=== PATIENT | male | born 1965 | race Caucasian/White ===

== ENCOUNTER → 2019-03-01 15:01 | Outpatient (BNVA) | payer MEDICARE, MEDICAID, SELFPAY | PROVIDERS: Family Provider Nurse Practitioner Family; PCP Nurse Practitioner Family; Visit Provider Nurse Practitioner Family | DX: E11.9 Type 2 diabetes mellitus without complications (principal); E03.9 Hypothyroidism, unspecified; I10 Essential (primary) hypertension; E78.5 Hyperlipidemia, unspecified; F41.9 Anxiety disorder, unspecified; N52.1 Erectile dysfunction due to diseases classified elsewhere | CPT/HCPCS: 80053; 80061; 83036; 84443; 85025 ==

== ENCOUNTER 2019-05-21 12:33 | Outpatient (CLI) | payer MEDICARE, MEDICAID, SELFPAY ==
--- NOTE | 2019-05-21 12:45 | USCV_ITS ---
Christiano Kearns Age: 54 Gender: M : 1965 Exam Date: 05/21/2019 12:52 Ordering Phys: Freda Summers SERVICE COUNSELOR-Arlet Technologist: Anup Chavez [place]am Location[place] [facility] [place]ication: LT LEG PAIN HISTORY: Lower extremity pain. PROCEDURES: Venous duplex imaging was performed in only the left lower extremity. The following venous structures were evaluated: common femoral vein, profunda vein, proximal portion of the greater saphenous vein, superficial femoral vein, and the popliteal vein. In addition, the posterior tibial and peroneal trunk were evaluated. On the left side, the common femoral, superficial femoral, profunda femoral, popliteal, posterior tibial, greater saphenous veins, and the peroneal trunk were identified and interrogated in the standard fashion. These veins were found to be easily compressible with spontaneous blood flow. No evidence of insufficiency or thrombus noted. FINDINGS: Normal 2-D Doppler and augmentation and compressibility throughout the lower extremity venous structures. Additional imaging through the proximal calf veins also reveals no thrombus. Limited evaluation of the greater saphenous vein is patent with no thrombus.. CONCLUSIONS No evidence of left lower extremity DVT. Jaime Mercedes MD (Electronically Signed) Final Date: 22 May 2019 16:50 S
--- NOTE | 2019-05-21 12:56 | XR_ITS ---
WS: [id number] LUMBAR SPINE TECHNIQUE: 3 views of the lumbar spine CLINICAL INFORMATION: back pain COMPARISON: None. FINDINGS: Five tmg-inp-edmpwky lumbar vertebral bodies. Disc space heights are well preserved. No compression f ractures. No spondylolisthesis. Visualized sacroiliac joints are normal. Normal visualized soft tissu es. Partially visualized bowel gas pattern is normal. Aortic calcification. Advanced facet arthropathy L5-S1. Trace retrolisthesis L5 on S1. Vascular calci fication. XR/XR lumbar spine 2-3V* [id number] IMPRESSION: 1. No acute lumbar spine findings 2. Disc space narrowing L5-S1 with slight retrolisthesis. 3. Advanced facet arthropathy L5-S1.
== END 2019-05-21 12:34 | disposition home or self-care (01) ==
LOC: RAD 12:34
PROVIDERS: Family Provider Nurse Practitioner Family; PCP Nurse Practitioner Family; Visit Provider Nurse Practitioner Family
DX: M79.605 Pain in left leg; M79.662 Pain in left lower leg; M54.9 Dorsalgia, unspecified; M48.07 Spinal stenosis, lumbosacral region; M47.817 Spondylosis without myelopathy or radiculopathy, lumbosacral region
CPT/HCPCS: 72100; 80053; 81000; 85025; 85379; 93971

== ENCOUNTER → 2019-06-14 16:36 | Outpatient (BNVA) | payer MEDICARE, MEDICAID, SELFPAY | PROVIDERS: Family Provider Nurse Practitioner Family; PCP Nurse Practitioner Family; Visit Provider Nurse Practitioner | DX: M79.672 Pain in left foot (principal); L02.619 Cutaneous abscess of unspecified foot; L03.119 Cellulitis of unspecified part of limb | CPT/HCPCS: 73630; 80053; 85025 ==

== ENCOUNTER 2019-06-15 11:29 | Outpatient (CLI) | payer MEDICARE, MEDICAID, SELFPAY ==
--- NOTE | 2019-06-15 11:45 | USCV_ITS ---
Christiano Kearns Age: 54 Gender: M : 1965 Exam Date: 06/15/2019 11:51 Ordering Phys: Ruel Reyes Technologist: Arpita Osborn Exam Location: [facility] – [place]_ Indication: LEFT 4TH TOE BLUE Risk Factors: Previous Vascular Surgery: RIGHT LEFT BP: / BP: 158.0/ 68.00 0 Waveform Velocity (cm/s) Velocity (cm/s) Waveform Iliac Prox 68.4 Monophasic Iliac Mid 64.8 Monophasic Iliac Distal 46.7 Monophasic BUSHLER 46.7 Monophasic SFA Prox 34.2 Monophasic SFA Mid 16.2 Monophasic SFA Dist 21.9 Monophasic POP 255.0 Monophasic DPA 14.4 Monophasic FINDINGS LT EXPORT DOCUMENTS CLERK: 0 LT DPA: NC LT DENIA: unable to calculate Moderate diffuse central venous plaques in the iliac and femoral artery on the left side. Monophasic, low velocity continuous waveforms in the mid and distal SFA , popliteal and dorsalis pedis artery CONCLUSIONS 1. Supernormal resting DENIA on the left side. 2. Abnormal Doppler waveforms, suggestive of collateral circulation in the mid to distal SFA, popliteal and dorsalis pedis artery. 3. 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 Exact comparison is difficult since there was no Doppler imaging at that time Dr Jessica Torrez MD [facility] (Electronically Signed) Final Date: 18 Jun 2019 08:35 S
== END 2019-06-15 11:30 | disposition home or self-care (01) ==
LOC: RAD 11:34
PROVIDERS: Family Provider Nurse Practitioner Family; PCP Nurse Practitioner Family; Visit Provider Nurse Practitioner
DX: M79.675 Pain in left toe(s) (principal)
CPT/HCPCS: 93926

== ENCOUNTER → 2019-06-19 12:01 | Outpatient (BNVA) | payer MEDICARE, MEDICAID, SELFPAY | PROVIDERS: Family Provider Nurse Practitioner Family; PCP Nurse Practitioner Family; Visit Provider Nurse Practitioner | DX: E11.9 Type 2 diabetes mellitus without complications (principal); I10 Essential (primary) hypertension | CPT/HCPCS: 80053; 85025 ==

== ENCOUNTER 2019-06-25 08:00 | Day surgery (SDC) | payer MEDICARE, MEDICAID, SELFPAY | END 2019-06-25 09:00 | disposition home or self-care (01) | LOC: CCL 10-04 12:02 | PROVIDERS: PCP Nurse Practitioner Family; Visit Provider Internal Medicine Cardiovascular Disease | DX: I73.9 Peripheral vascular disease, unspecified (principal) | CPT/HCPCS: J3490 ==

== ENCOUNTER 2019-06-25 12:35 | Inpatient (IN) | payer MEDICARE, OTHER, MEDICAID, SELFPAY ==
[2019-06-25 12:42] VITALS: BP 219/122; PULSE 112; RESP 17; TEMP 36.9; O2SAT 100; BMI 29.5
--- NOTE | 2019-06-25 13:24 | ED_ITS ---
Documented by User: ELIZABETH Freire 06/25/19 16:58 HPI - General Adult General: Chief complaint: General Medical Stated complaint: COVID 19 SWAB Time Seen by Provider: 06/25/19 12:42 Source: patient Mode of arrival: ambulatory Limitations: no limitations History of Present Illness: HPI narrative: Patient is a 54-year-old male with a known history of PVD here per their request of Dr. Ambriz to get tested for COVID prior to being a direct admit. 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 Patient does not have any signs or symptoms of COVID. He is not complaining of fever, cough, shortness of breath. He has had no recent travel or sick exposures. The last note I can find on patient was from 06/[address] Leonardo. It states that patient had an ultrasound at the beginning of the month showing monophasic flow throughout his left lower extremity. Dr. Gr had agreed to take the patient to the OR and apparently saw patient today however I cannot find a note regarding this visit. Patient tells me he has been having pain in his left foot for over 3 weeks now. Onset (ago): week(s) Associated symptoms: Deny chest pain, dyspnea, headache(s), malaise, nausea, palpitations, syncope or vomiting Review of Systems General: Reports: 10 or more systems reviewed and unremarkable except in HPI and below Const: Denies: fever, chills, body aches, fatigue or malaise Eyes: Denies: change in vision, blurry vision or seeing flashes Card: Denies: chest pain, palpitations, irregular heart rhythm, edema, lightheadedness, syncope, pre-syncope or shortness of breath when lying down Resp: Denies: shortness of breath GI: Denies: abdominal pain, nausea or vomiting Musc: Reports: extremity pain (L foot); Denies: neck pain or back pain Skin/Breast: Reports: other ( black toe ) Neuro: Denies: headache, weakness in extremities, difficulty walking, frequent falls or dizziness PFS ED PFSH: Medical History (Updated 06/25/19 @ 19:41 by Greta Gr MD) Acquired hypothyroidism Acquired spondylolisthesis Anxiety and depression Chronic hypertension Critical lower limb ischemia Diet-controlled type 2 diabetes mellitus Dyslipidemia End stage renal failure on dialysis Environmental and seasonal allergies Erectile dysfunction due to diseases classified elsewhere HPTH (hyperparathyroidism) Malignant hypertension PAD (peripheral artery disease) Polyneuropathy Vitamin D deficiency Surgical History History of heart artery stent History of repair of right rotator cuff History of toe surgery Left great toe debridement Family History Brother Cancer Mother Cancer Father Heart disease Social History Smoking and tobacco status: never smoked Second hand smoke exposure: No Smoking risk assessment/counseling performed?: No Alcohol intake: unknown Lives independently: Yes Housing: House Marital status: Legally Highest education level completed: Some College, No Degree service: No Current occupational status: disabled Pets and animals: Yes Current gender identity: Male Physical Exam Const: COMMON NORMALS: no apparent distress, average body habitus, oriented x3, no limitations, healthy appearing, alert and well nourished HENMT: COMMON NORMALS: normocephalic and head/scalp atraumatic HEAD & SCALP: normocephalic and atraumatic Resp: COMMON NORMALS: normal respiratory effort and clear to auscultation bilaterally AUSCULTATION: clear to auscultation bilaterally Cardio: COMMON NORMALS: regular rate and regular rhythm RATE: regular rate RHYTHM: regular rhythm GI: COMMON NORMALS: normal to inspection, nondistended, normoactive bowel sounds, soft to palpation, non-tender, no hepatosplenomegaly and no masses PALPATION: Yes soft and Yes no hepatosplenomegaly Extremity: OTHER: necrotic L 4th toe; no foul odor noted; he has non-palpable pulses to L foot; foot does not feel cool to the touch Neuro: COMMON NORMALS: oriented x3 SENSORIUM/ORIENTATION: Yes alert Course Consultations: Consultation #1: Telenephrology-will consult on patient and take care of his dialysis while in hospital Vital Signs: Vital signs: Vital Signs Temperature 98.1 F 06/26/19 02:30 Pulse Rate 127 H 06/26/19 13:00 Respiratory Rate 17 06/26/19 13:00 Blood Pressure 157/99 06/26/19 13:00 Pulse Oximetry 99 06/26/19 13:00 MDM - General Adult MDM Narrative: Medical decision making narrative: Dr. Aburto spoke to Dr. Gr and explained the lack of need for COVID testing. Will go ahead and admit with plan for OR in the morning. I have consulted with telenephrology so they are aware of patient and can be involved in his peritoneal dialysis while in the hospital. Spoke to Dr. Aburto and we will start patient on 5,000 units SQ heparin. Lab Data: Labs: Lab Results 06/25/19 06/25/19 06/25/19 Range/Units 14:22 14:22 14:22 WBC 12.3 H (4.0-10.0) 10^3/ uL RBC 3.71 L (4.1-5.3) 10^6/u L Hgb 11.1 L (11.7-16.6) g/dL Hct 33.7 L (42.0-52.0) % MCV 90.8 (80-94) fL MCH 29.9 (28.0-34.0) pg MCHC 32.9 (30.0-36.0) g/dL RDW 14.5 (12.1-15.1) % Plt Count 314 (130-400) 10^3/c mm MPV 8.7 (7.4-10.4) fL Neut % (Auto) 74.4 % Lymph % (Auto) 13.1 % [place] % (Auto) 8.5 % Eos % (Auto) 2.1 % Baso % (Auto) 1.3 % Neut # (Auto) 9.1 H (1.8-7.7) 10^3/u L Lymph # (Auto) 1.6 (0.8-4.8) 10^3/u L [place] # (Auto) 1.0 H (0.2-0.9) 10^3/u L Eos # (Auto) 0.3 (0.0-0.8) 10^3/u L Baso # (Auto) 0.2 H (0.0-0.1) 10^3/u L Nucleated RBC % (a uto) 0 % Nucleated RBCs # 0.0 /100WBC PT 14.20 H (10.5-13.3) SECO NDS INR 1.06 (0.8-1.2) APTT 36.8 H (23.9-36.7) SECO NDS Sodium 134 L (136-145) mmol/L Potassium 3.3 L (3.5-5.1) mmol/L Chloride 90 L (98-107) mmol/L Carbon Dioxide 25 (22-29) mmol/L Anion Gap 22.3 H (5-19) BUN 33 H (6-20) mg/dL Creatinine 9.3 H* (0.7-1.2) mg/dL GFR Calculation 6.0 L (90-130) mL/min Glucose 156 H (65-115) mg/dL POC Glucose (70-110) mg/dL Calculated Osmolal ity 278 L (285-295) mOsm/k g Calcium 8.5 (8.5-10.5) mg/dL Phosphorus (2.5-4.5) mg/dL Magnesium (1.7-2.3) mg/dL Total Bilirubin 0.2 (0.15-1.2) mg/dL AST 11 (0-40) U/L ALT 8 (0-41) U/L Alkaline Phosphata se 114 (40-130) IU/L Total Protein 6.7 (6.6-8.7) g/dL Albumin 3.2 L (3.5-5.2) g/dL Globulin 3.5 (1.3-4.6) g/dL Urine Color (Yellow) Urine Appearance (CLEAR) Urine pH (5-7) Ur Specific Gravit y (1.005-1.030) Urine Protein (Negative) Urine Glucose (UA) (Normal) Urine Ketones (Negative) Urine Blood (Negative) Urine Nitrate (Negative) Urine Bilirubin (NEGATIVE) Urine Urobilinogen (Negative) mg/dL Ur Leukocyte [place] (Negative) Urine RBC (0-2) /hpf Urine WBC (0-5) /hpf Ur Squamous Epith Cells (0-5) Urine Bacteria (NONE) 06/25/19 06/25/19 06/25/19 Range/Units 14:22 16:15 18:11 WBC (4.0-10.0) 10^3/ uL RBC (4.1-5.3) 10^6/u L Hgb (11.7-16.6) g/dL Hct (42.0-52.0) % MCV (80-94) fL MCH (28.0-34.0) pg MCHC (30.0-36.0) g/dL RDW (12.1-15.1) % Plt Count (130-400) 10^3/c mm MPV (7.4-10.4) fL Neut % (Auto) % Lymph % (Auto) % [place] % (Auto) % Eos % (Auto) % Baso % (Auto) % Neut # (Auto) (1.8-7.7) 10^3/u L Lymph # (Auto) (0.8-4.8) 10^3/u L [place] # (Auto) (0.2-0.9) 10^3/u L Eos # (Auto) (0.0-0.8) 10^3/u L Baso # (Auto) (0.0-0.1) 10^3/u L Nucleated RBC % (a uto) % Nucleated RBCs # /100WBC PT (10.5-13.3) SECO NDS INR (0.8-1.2) APTT (23.9-36.7) SECO NDS Sodium (136-145) mmol/L Potassium (3.5-5.1) mmol/L Chloride (98-107) mmol/L Carbon Dioxide (22-29) mmol/L Anion Gap (5-19) BUN (6-20) mg/dL Creatinine (0.7-1.2) mg/dL GFR Calculation (90-130) mL/min Glucose (65-115) mg/dL POC Glucose 289 (70-110) mg/dL Calculated Osmolal ity (285-295) mOsm/k g Calcium (8.5-10.5) mg/dL Phosphorus 4.8 H (2.5-4.5) mg/dL Magnesium 1.7 (1.7-2.3) mg/dL Total Bilirubin (0.15-1.2) mg/dL AST (0-40) U/L ALT (0-41) U/L Alkaline Phosphata se (40-130) IU/L Total Protein (6.6-8.7) g/dL Albumin (3.5-5.2) g/dL Globulin (1.3-4.6) g/dL Urine Color Straw (Yellow) Urine Appearance Clear (CLEAR) Urine pH 6.5 (5-7) Ur Specific Gravit y 1.005 (1.005-1.030) Urine Protein 1+ H (Negative) Urine Glucose (UA) 1+ (Normal) Urine Ketones Negative (Negative) Urine Blood 2+ H (Negative) Urine Nitrate Negative (Negative) Urine Bilirubin Neg (NEGATIVE) Urine Urobilinogen Norm (Negative) mg/dL Ur Leukocyte [place] Negative (Negative) Urine RBC 5-10 H (0-2) /hpf Urine WBC 0-4 H (0-5) /hpf Ur Squamous Epith Cells 0-4 H (0-5) Urine Bacteria Trace (NONE) 06/26/19 06/26/19 Range/Units 05:11 05:11 WBC 9.5 (4.0-10.0) 10^3/ uL RBC 3.32 L (4.1-5.3) 10^6/u L Hgb 10.2 L (11.7-16.6) g/dL Hct 30.2 L (42.0-52.0) % MCV 91.0 (80-94) fL MCH 30.7 (28.0-34.0) pg MCHC 33.8 (30.0-36.0) g/dL RDW 14.4 (12.1-15.1) % Plt Count 324 (130-400) 10^3/c mm MPV 9.1 (7.4-10.4) fL Neut % (Auto) 69.0 % Lymph % (Auto) 15.3 % [place] % (Auto) 10.0 % Eos % (Auto) 3.9 % Baso % (Auto) 1.3 % Neut # (Auto) 6.6 (1.8-7.7) 10^3/u L Lymph # (Auto) 1.5 (0.8-4.8) 10^3/u L [place] # (Auto) 1.0 H (0.2-0.9) 10^3/u L Eos # (Auto) 0.4 (0.0-0.8) 10^3/u L Baso # (Auto) 0.1 (0.0-0.1) 10^3/u L Nucleated RBC % (a uto) 0 % Nucleated RBCs # 0.0 /100WBC PT (10.5-13.3) SECO NDS INR (0.8-1.2) APTT (23.9-36.7) SECO NDS Sodium 136 (136-145) mmol/L Potassium 2.7 L* (3.5-5.1) mmol/L Chloride 95 L (98-107) mmol/L Carbon Dioxide 23 (22-29) mmol/L Anion Gap 20.7 H (5-19) BUN 37 H (6-20) mg/dL Creatinine 9.3 H* (0.7-1.2) mg/dL GFR Calculation 6.0 L (90-130) mL/min Glucose 122 H (65-115) mg/dL POC Glucose (70-110) mg/dL Calculated Osmolal ity 281 L (285-295) mOsm/k g Calcium 7.9 L (8.5-10.5) mg/dL Phosphorus (2.5-4.5) mg/dL Magnesium (1.7-2.3) mg/dL Total Bilirubin (0.15-1.2) mg/dL AST (0-40) U/L ALT (0-41) U/L Alkaline Phosphata se (40-130) IU/L Total Protein (6.6-8.7) g/dL Albumin (3.5-5.2) g/dL Globulin (1.3-4.6) g/dL Urine Color (Yellow) Urine Appearance (CLEAR) Urine pH (5-7) Ur Specific Gravit y (1.005-1.030) Urine Protein (Negative) Urine Glucose (UA) (Normal) Urine Ketones (Negative) Urine Blood (Negative) Urine Nitrate (Negative) Urine Bilirubin (NEGATIVE) Urine Urobilinogen (Negative) mg/dL Ur Leukocyte [place] (Negative) Urine RBC (0-2) /hpf Urine WBC (0-5) /hpf Ur Squamous Epith Cells (0-5) Urine Bacteria (NONE) Imaging Data^: CXR: Radiologist's impression: [address] [address] XRay Report Signed Patient: Christiano Kearns Unit #: [id number] : 1965 Age/Sex: 54 / M ADM Date: 06/25/19 Loc: ER Room/Bed: Attending Dr: Ordering Provider/Ordering MD: Hilda Chinchilla Date of Service: 06/25/19 Procedure(s): XR chest 1V portable [id number] Accession Number(s): [id number] Report Number: [id number] WS: [id number] PORTABLE CHEST HISTORY: cough/congestion COMPARISON: 07/05/2018 Lungs are clear and well expanded. No pleural effusion or pneumothorax. Cardiac size: Normal. Mediastinum/Aorta: Normal mediastinum. No osseous abnormality seen. XR/XR chest 1V portable [id number] IMPRESSION: Unremarkable portable chest. Dictated By: Danyelle Paredes DO Signed By: Danyelle Paredes DO Signed Date/Time: 06/25/19 1410 DD/ 1409 Discharge Plan Discharge Patient Disposition: Admitted As Inpatient Admit Provider: Greta Gr Clinical Impression: Peripheral vascular disease, End stage chronic kidney disease Condition: Stable Referrals: Freda Summers FNP-C [Primary Care Provider] - Discharge Date/Time: 06/26/19 02:49 Coding Level of Care Code ED Mannequin Mounter for Chg Fwd Exam Detailed Documented by User: Rafael Aburto DO 06/26/19 13:33 HPI - General Adult General: Chief complaint: General Medical Stated complaint: COVID 19 SWAB Time Seen by Provider: 06/25/19 12:42 PFSH ED PFSH: Medical History (Updated 06/25/19 @ 19:41 by Greta Gr MD) Acquired hypothyroidism Acquired spondylolisthesis Anxiety and depression Chronic hypertension Critical lower limb ischemia Diet-controlled type 2 diabetes mellitus Dyslipidemia End stage renal failure on dialysis Environmental and seasonal allergies Erectile dysfunction due to diseases classified elsewhere HPTH (hyperparathyroidism) Malignant hypertension PAD (peripheral artery disease) Polyneuropathy Vitamin D deficiency Surgical History History of heart artery stent History of repair of right rotator cuff History of toe surgery Left great toe debridement Family History Brother Cancer Mother Cancer Father Heart disease Social History Smoking and tobacco status: never smoked Second hand smoke exposure: No Smoking risk assessment/counseling performed?: No Alcohol intake: unknown Lives independently: Yes Housing: House Marital status: Legally Highest education level completed: Some College, No Degree service: No Current occupational status: disabled Pets and animals: Yes Current gender identity: Male Course Vital Signs: Vital signs: Vital Signs Temperature 98.1 F 06/26/19 02:30 Pulse Rate 127 H 06/26/19 13:00 Respiratory Rate 17 06/26/19 13:00 Blood Pressure 157/99 06/26/19 13:00 Pulse Oximetry 99 06/26/19 13:00 MDM - General Adult MDM Narrative: Medical decision making narrative: Discussed with Dr. Ramirez. Patient will be heparinized. He has no clinical indication at this point for COVID testing. Patient admitted to Dr. Ramirez services. Lab Data: Labs: Lab Results 06/25/19 06/25/19 06/25/19 Range/Units 14:22 14:22 14:22 WBC 12.3 H (4.0-10.0) 10^3/ uL RBC 3.71 L (4.1-5.3) 10^6/u L Hgb 11.1 L (11.7-16.6) g/dL Hct 33.7 L (42.0-52.0) % MCV 90.8 (80-94) fL MCH 29.9 (28.0-34.0) pg MCHC 32.9 (30.0-36.0) g/dL RDW 14.5 (12.1-15.1) % Plt Count 314 (130-400) 10^3/c mm MPV 8.7 (7.4-10.4) fL Neut % (Auto) 74.4 % Lymph % (Auto) 13.1 % [place] % (Auto) 8.5 % Eos % (Auto) 2.1 % Baso % (Auto) 1.3 % Neut # (Auto) 9.1 H (1.8-7.7) 10^3/u L Lymph # (Auto) 1.6 (0.8-4.8) 10^3/u L [place] # (Auto) 1.0 H (0.2-0.9) 10^3/u L Eos # (Auto) 0.3 (0.0-0.8) 10^3/u L Baso # (Auto) 0.2 H (0.0-0.1) 10^3/u L Nucleated RBC % (a uto) 0 % Nucleated RBCs # 0.0 /100WBC PT 14.20 H (10.5-13.3) SECO NDS INR 1.06 (0.8-1.2) APTT 36.8 H (23.9-36.7) SECO NDS Sodium 134 L (136-145) mmol/L Potassium 3.3 L (3.5-5.1) mmol/L Chloride 90 L (98-107) mmol/L Carbon Dioxide 25 (22-29) mmol/L Anion Gap 22.3 H (5-19) BUN 33 H (6-20) mg/dL Creatinine 9.3 H* (0.7-1.2) mg/dL GFR Calculation 6.0 L (90-130) mL/min Glucose 156 H (65-115) mg/dL POC Glucose (70-110) mg/dL Calculated Osmolal ity 278 L (285-295) mOsm/k g Calcium 8.5 (8.5-10.5) mg/dL Phosphorus (2.5-4.5) mg/dL Magnesium (1.7-2.3) mg/dL Total Bilirubin 0.2 (0.15-1.2) mg/dL AST 11 (0-40) U/L ALT 8 (0-41) U/L Alkaline Phosphata se 114 (40-130) IU/L Total Protein 6.7 (6.6-8.7) g/dL Albumin 3.2 L (3.5-5.2) g/dL Globulin 3.5 (1.3-4.6) g/dL Urine Color (Yellow) Urine Appearance (CLEAR) Urine pH (5-7) Ur Specific Gravit y (1.005-1.030) Urine Protein (Negative) Urine Glucose (UA) (Normal) Urine Ketones (Negative) Urine Blood (Negative) Urine Nitrate (Negative) Urine Bilirubin (NEGATIVE) Urine Urobilinogen (Negative) mg/dL Ur Leukocyte [place] (Negative) Urine RBC (0-2) /hpf Urine WBC (0-5) /hpf Ur Squamous Epith Cells (0-5) Urine Bacteria (NONE) 06/25/19 06/25/19 06/25/19 Range/Units 14:22 16:15 18:11 WBC (4.0-10.0) 10^3/ uL RBC (4.1-5.3) 10^6/u L Hgb (11.7-16.6) g/dL Hct (42.0-52.0) % MCV (80-94) fL MCH (28.0-34.0) pg MCHC (30.0-36.0) g/dL RDW (12.1-15.1) % Plt Count (130-400) 10^3/c mm MPV (7.4-10.4) fL Neut % (Auto) % Lymph % (Auto) % [place] % (Auto) % Eos % (Auto) % Baso % (Auto) % Neut # (Auto) (1.8-7.7) 10^3/u L Lymph # (Auto) (0.8-4.8) 10^3/u L [place] # (Auto) (0.2-0.9) 10^3/u L Eos # (Auto) (0.0-0.8) 10^3/u L Baso # (Auto) (0.0-0.1) 10^3/u L Nucleated RBC % (a uto) % Nucleated RBCs # /100WBC PT (10.5-13.3) SECO NDS INR (0.8-1.2) APTT (23.9-36.7) SECO NDS Sodium (136-145) mmol/L Potassium (3.5-5.1) mmol/L Chloride (98-107) mmol/L Carbon Dioxide (22-29) mmol/L Anion Gap (5-19) BUN (6-20) mg/dL Creatinine (0.7-1.2) mg/dL GFR Calculation (90-130) mL/min Glucose (65-115) mg/dL POC Glucose 289 (70-110) mg/dL Calculated Osmolal ity (285-295) mOsm/k g Calcium (8.5-10.5) mg/dL Phosphorus 4.8 H (2.5-4.5) mg/dL Magnesium 1.7 (1.7-2.3) mg/dL Total Bilirubin (0.15-1.2) mg/dL AST (0-40) U/L ALT (0-41) U/L Alkaline Phosphata se (40-130) IU/L Total Protein (6.6-8.7) g/dL Albumin (3.5-5.2) g/dL Globulin (1.3-4.6) g/dL Urine Color Straw (Yellow) Urine Appearance Clear (CLEAR) Urine pH 6.5 (5-7) Ur Specific Gravit y 1.005 (1.005-1.030) Urine Protein 1+ H (Negative) Urine Glucose (UA) 1+ (Normal) Urine Ketones Negative (Negative) Urine Blood 2+ H (Negative) Urine Nitrate Negative (Negative) Urine Bilirubin Neg (NEGATIVE) Urine Urobilinogen Norm (Negative) mg/dL Ur Leukocyte [place] Negative (Negative) Urine RBC 5-10 H (0-2) /hpf Urine WBC 0-4 H (0-5) /hpf Ur Squamous Epith Cells 0-4 H (0-5) Urine Bacteria Trace (NONE) 06/26/19 06/26/19 Range/Units 05:11 05:11 WBC 9.5 (4.0-10.0) 10^3/ uL RBC 3.32 L (4.1-5.3) 10^6/u L Hgb 10.2 L (11.7-16.6) g/dL Hct 30.2 L (42.0-52.0) % MCV 91.0 (80-94) fL MCH 30.7 (28.0-34.0) pg MCHC 33.8 (30.0-36.0) g/dL RDW 14.4 (12.1-15.1) % Plt Count 324 (130-400) 10^3/c mm MPV 9.1 (7.4-10.4) fL Neut % (Auto) 69.0 % Lymph % (Auto) 15.3 % [place] % (Auto) 10.0 % Eos % (Auto) 3.9 % Baso % (Auto) 1.3 % Neut # (Auto) 6.6 (1.8-7.7) 10^3/u L Lymph # (Auto) 1.5 (0.8-4.8) 10^3/u L [place] # (Auto) 1.0 H (0.2-0.9) 10^3/u L Eos # (Auto) 0.4 (0.0-0.8) 10^3/u L Baso # (Auto) 0.1 (0.0-0.1) 10^3/u L Nucleated RBC % (a uto) 0 % Nucleated RBCs # 0.0 /100WBC PT (10.5-13.3) SECO NDS INR (0.8-1.2) APTT (23.9-36.7) SECO NDS Sodium 136 (136-145) mmol/L Potassium 2.7 L* (3.5-5.1) mmol/L Chloride 95 L (98-107) mmol/L Carbon Dioxide 23 (22-29) mmol/L Anion Gap 20.7 H (5-19) BUN 37 H (6-20) mg/dL Creatinine 9.3 H* (0.7-1.2) mg/dL GFR Calculation 6.0 L (90-130) mL/min Glucose 122 H (65-115) mg/dL POC Glucose (70-110) mg/dL Calculated Osmolal ity 281 L (285-295) mOsm/k g Calcium 7.9 L (8.5-10.5) mg/dL Phosphorus (2.5-4.5) mg/dL Magnesium (1.7-2.3) mg/dL Total Bilirubin (0.15-1.2) mg/dL AST (0-40) U/L ALT (0-41) U/L Alkaline Phosphata se (40-130) IU/L Total Protein (6.6-8.7) g/dL Albumin (3.5-5.2) g/dL Globulin (1.3-4.6) g/dL Urine Color (Yellow) Urine Appearance (CLEAR) Urine pH (5-7) Ur Specific Gravit y (1.005-1.030) Urine Protein (Negative) Urine Glucose (UA) (Normal) Urine Ketones (Negative) Urine Blood (Negative) Urine Nitrate (Negative) Urine Bilirubin (NEGATIVE) Urine Urobilinogen (Negative) mg/dL Ur Leukocyte [place] (Negative) Urine RBC (0-2) /hpf Urine WBC (0-5) /hpf Ur Squamous Epith Cells (0-5) Urine Bacteria (NONE) Discharge Plan Discharge Patient Disposition: Admitted As Inpatient Admit Provider: Greta Gr Clinical Impression: Peripheral vascular disease, End stage chronic kidney disease Condition: Stable Referrals: Freda Summers FNP-C [Primary Care Provider] - Discharge Date/Time: 06/26/19 02:49 Coding Level of Care Code ED Mannequin Mounter for Chg Fwd Exam Detailed
--- NOTE | 2019-06-25 13:54 | XR_ITS ---
WS: [id number] PORTABLE CHEST HISTORY: cough/congestion COMPARISON: 07/05/2018 Lungs are clear and well expanded. No pleural effusion or pneumothorax. Cardiac size: Normal. Mediastinum/Aorta: Normal mediastinum. No osseous abnormality seen. XR/XR chest 1V portable [id number] IMPRESSION: Unremarkable portable chest.
[2019-06-25 14:31] LABS: Basophils # 0.2 10^3/uL (0.0-0.1); Basophils % 1.3 %; Eosinophils # 0.3 10^3/uL (0.0-0.8); Eosinophils % 2.1 %; Hematocrit 33.7 % (42.0-52.0); Hemoglobin 11.1 g/dL (11.7-16.6); Lymphocytes # 1.6 10^3/uL (0.8-4.8); Lymphocytes % 13.1 %; Mean Corpuscular HGB Conc 32.9 g/dL (30.0-36.0); Mean Corpuscular Hemoglobin 29.9 pg (28.0-34.0); Mean Corpuscular Volume 90.8 fL (80-94); Mean Platelet Volume 8.7 fL (7.4-10.4); Monocytes % 8.5 %; Neutrophils # 9.1 10^3/uL (1.8-7.7); Neutrophils % 74.4 %; Nucleated Red Blood Cells % 0 %; Platelet Count 314 10^3/cmm (130-400); Red Blood Count 3.71 10^6/uL (4.1-5.3); Red Cell Distribution Width 14.5 % (12.1-15.1); White Blood Count 12.3 10^3/uL (4.0-10.0)
[2019-06-25 14:43] LABS: INR 1.06 (0.8-1.2)
[2019-06-25 14:44] LABS: Partial Thromboplastin Time 36.8 SECONDS (23.9-36.7)
[2019-06-25 14:50] LABS: Alanine Aminotransferase 8 U/L (0-41); Albumin Level 3.2 g/dL (3.5-5.2); Alkaline Phosphatase 114 IU/L (40-130); Anion Gap 22.3 (5-19); Aspartate Amino Transferase 11 U/L (0-40); Blood Urea Nitrogen 33 mg/dL (6-20); Calcium 8.5 mg/dL (8.5-10.5); Carbon Dioxide 25 mmol/L (22-29); Chloride 90 mmol/L (98-107); Globulin 3.5 g/dL (1.3-4.6); Glucose 156 mg/dL (65-115); Osmolality Calculated 278 mOsm/kg (285-295); Potassium 3.3 mmol/L (3.5-5.1); Sodium 134 mmol/L (136-145); Total Bilirubin 0.2 mg/dL (0.15-1.2); Total Protein 6.7 g/dL (6.6-8.7)
--- NOTE | 2019-06-25 15:44 | ECG_ITS ---
Measurements Intervals [place] Rate: 96 P: 34 [place]: 210 QRS: -9 QRSD: 98 T: 45 QT: 377 QTc: 477 SINUS RHYTHM WITH FIRST DEGREE AV BLOCK WITH OCCASIONAL SUPRAVENTRICULAR PRE PREMATURE COMPLEXES SEPTAL MYOCARDIAL INFARCTION , OF INDETERMINATE AGE [40+ ms Q WAVE IN V1/V2] Compared to ECG 10/18/2017 21:39:56 First degree AV block now present Myocardial infarct finding now present Electronically Signed On 06-26-2019 19:47:05 CDT by Greta Gr M.D. [email or web address]
[2019-06-25 16:07] LABS: Magnesium 1.7 mg/dL (1.7-2.3); Phosphorus 4.8 mg/dL (2.5-4.5)
[2019-06-25] MEDS: heparin 5,000 unit/mL INJ 1 mL 5000 UNIT SUBCUT (16:14)
[2019-06-25 18:00] VITALS: BP 232/127; PULSE 100; RESP 18; O2SAT 96
[2019-06-25 18:07] LABS: Urine Color Straw (Yellow)
[2019-06-25 18:08] LABS: Urine Appearance Clear (CLEAR); pH Urine 6.5 (5-7)
[2019-06-25 18:09] LABS: Bilirubin Urine Neg (NEGATIVE); Blood Urine 2+ (Negative); Glucose Urine UA 1+ (Normal); Ketones Urine Negative (Negative); Nitrate Urine Negative (Negative); Protein Urine 1+ (Negative); Specific Gravity, Urine 1.005 (1.005-1.030)
[2019-06-25 18:10] LABS: Add Urine Culture? No; Add Urine Microscopic? YES; Bacteria Urine TRACE; Leukocyte Esterase Urine Negative (Negative); Squamous Epithelial Cell Urine 0-4 (0-5); Urobilinogen Urine Norm (Negative); WBC Urine 0-4 /hpf (0-5)
--- NOTE | 2019-06-25 18:13 | PC.NURSE ---
Call placed to Dr Gr regarding BP of 232/127. Orders given for 1 inch of Nitro paste and 10mg Amlodipine PO per [facility]TO.
[2019-06-25 18:15] LABS: Glucose Point of Care 289 mg/dL (70-110)
--- NOTE | 2019-06-25 18:25 | P.PN_ITS ---
Subjective Subjective: Interval history: Mr Kearns is electively admitted for arterial stent to his left leg and amputation of his left fourth toe due to necrosis, due to go to the OR tomorrow per Dr Gr. 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 No new uremic Sx No issues with his PD, it is going well, painless with good outflow Bp high since admission Vitals/I&O/Wt Last Vital Signs Temp 98.4 F 06/25/19 12:42 Pulse 112 H 06/25/19 12:42 Resp 17 06/25/19 12:42 BP 219/122 06/25/19 12:42 Pulse Ox 100 06/25/19 12:42 Weight last 48 hrs Weight 90.718 kg Physical Exam Narrative: EXAM NARRATIVE: The exam was performed with the aid of the bedside RN via telemed HENMT: COMMON NORMALS: normocephalic and head/scalp atraumatic HEAD & SCALP: normocephalic and atraumatic Neck/C-Spine: COMMON NORMALS: no JVD Chest: COMMONS NORMALS: inspection of chest normal Resp: COMMON NORMALS: normal respiratory effort and no retractions Cardio: COMMON NORMALS: no JVD and regular rate RATE: regular rate GI: COMMON NORMALS: normal to inspection, nondistended, normoactive bowel sounds : COMMON NORMALS: Yes external exam normal Data : 06/25/19 14:22 06/25/19 14:22 A&P Additional A&P Information 1. ESRD on PD - Will allow him to perform his own PD this evening. - 5 exchanges of 2.5L of yellow (1.5%) solution (4 at night and one day dwell) night dwell over 8hrs - dose meds for eGFR < 15 on PD 2. Arterial stent to his left leg and amputation of his left fourth toe planned for tomorrow (planned for first thing in the am) - pending COVID rule out 3. Hypertension - Bp high and tachy; to receive amlodipine and nitro paste - Can add Metoprolol if Bp remains high. 4. Anemia at goal for ESRD 5. Bone metabolism of ESRD - cont OP meds, no need to follow these levels in house Attestations Medical Necessity Statement*: Eval and mgmt of ESRD on PD Coding Level of Care Code Acute Tree Feller for Chg Fwd Exam Detailed
[2019-06-25] MEDS: nitroglycerin 1 gm/inch oint Pkt 1 INCH TOPICAL (19:03)
--- NOTE | 2019-06-25 19:23 | PM.HP ---
Providers/Chief Complaint Admitting Physician: Greta Gr MD Primary Care Provider: ENRIQUE Ramirez Chief Complaint: COVID 19 SWAB History of Present Illness Christiano Kearns is a 54 year old male past medical history significant for uncontrolled diabetes mellitus, chronic kidney disease on peritoneal dialysis, history of hypertension erectile dysfunction dyslipidemia who was referred by Dr. Leonardo for gangrenous left fourth toe , patient was to undergo peripheral angiogram this Tuesday however due to worsening of pain in the foot we brought him today for direct admission however due to COVID situation he has to go through emergency room where he was screened out and admitted to the floor. We appreciate nephrology to help us in peritoneal dialysis. His blood pressure was also noted to be more than 200 systolic. Patient was started on Nitropaste and amlodipine. He is scheduled for peripheral angiogram at 7 AM. Review of Systems General: Reports: 10 or more systems reviewed and unremarkable except as noted in History and below Const: Denies: fever(s), chills, body aches, fatigue or malaise Eyes: Denies: change in vision, blurry vision or seeing flashes Card: Denies: chest pain, palpitations, irregular heart rhythm, edema, lightheadedness, syncope, pre-syncope or orthopnea Resp: Denies: dyspnea GI: Denies: abdominal pain, nausea or vomiting Musc: Reports: extremity pain (L foot); Denies: neck pain, back pain or joint warmth Skin/Breast: Reports: other ( black toe ) Neuro: Denies: headache(s), weakness in extremities, difficulty walking, frequent falls or dizziness Medications/Allergies Home Medications Medication Instructions Recorded Confirmed Last Taken Type hydrocodone 10 mg-acetaminophen 1 tab PO Q4H PRN tab 03/01/19 06/25/19 06/25/19 History 325 mg tablet nitroglycerin 0.4 mg sublingual 0.4 mg SUBLINGUAL Q5M PRN tab 03/01/19 06/25/19 Unknown History tablet sildenafil 100 mg tablet 100 mg PO DAILY PRN 30 Days #6 tab 03/01/19 06/25/19 Unknown Rx levothyroxine 112 mcg tablet 112 mcg PO DAILY #90 tab 06/04/19 06/25/19 06/24/19 Rx cetirizine 10 mg tablet 10 mg PO DAILY #30 tab 06/06/19 06/25/1906/23/20 Rx cefuroxime axetil 500 mg tablet 500 mg PO BID #20 tab 06/14/19 06/25/19 06/23/19 Rx atorvastatin 20 mg PO BEDTIME 06/25/19 06/25/19 06/24/19 History cyclobenzaprine 10 mg PO BID PRN 06/25/19 06/25/19 Unknown History zolpidem 10 mg PO BEDTIME 06/25/19 06/25/19 06/24/19 History amlodipine 10 mg PO DAILY #30 tab 06/28/19 Unknown Rx apixaban [Eliquis] 2.5 mg PO BID #60 tab 06/28/19 Unknown Rx hydralazine 50 mg PO TID #90 tab 06/28/19 Unknown Rx metoprolol tartrate 50 mg PO BID #60 tab 06/28/19 Unknown Rx Allergies Allergy/AdvReac Type Severity Reaction Status Date / Time nitrofurantoin Allergy unknown Verified 06/21/19 15:32 clavulanic acid AdvReac Severe Nausea Verified 06/21/19 15:32 [From Augmentin] amoxicillin [From Augmentin] AdvReac Intermediate Nausea Verified 06/21/19 15:32 PFSH Acute PFSH: Medical History (Updated 06/25/19 @ 19:41 by Greta Gr MD) Acquired hypothyroidism Acquired spondylolisthesis Anxiety and depression Chronic hypertension Critical lower limb ischemia Diet-controlled type 2 diabetes mellitus Dyslipidemia End stage renal failure on dialysis Environmental and seasonal allergies Erectile dysfunction due to diseases classified elsewhere HPTH (hyperparathyroidism) Malignant hypertension PAD (peripheral artery disease) Polyneuropathy Vitamin D deficiency Surgical History History of heart artery stent History of repair of right rotator cuff History of toe surgery Left great toe debridement Family History Brother Cancer Mother Cancer Father Heart disease Social History Smoking and tobacco status: never smoked Second hand smoke exposure: No Smoking risk assessment/counseling performed?: No Alcohol intake: unknown Lives independently: Yes Housing: House Marital status: Legally Highest education level completed: Some College, No Degree service: No Current occupational status: disabled Pets and animals: Yes Current gender identity: Male Vitals/I&O/Wt Last Vital Signs Temp 98.4 F 06/25/19 12:42 Pulse 112 H 06/25/19 12:42 Resp 17 06/25/19 12:42 BP 219/122 06/25/19 12:42 Pulse Ox 100 06/25/19 12:42 Weight last 48 hrs Weight 200 lb Physical Exam Narrative: EXAM NARRATIVE: GENERAL: Patient is alert, awake and oriented x3. Mild distress due to left gangrenous toe pain NECK: No jugular vein distension. HEENT: No cyanosis. No icterus. No pallor. HEART: Regular S1 and S2. No murmur, rub or gallop. LUNGS: Decreased breath sound bilaterally.. CENTRAL NERVOUS SYSTEM: Grossly nonfocal. EXTREMITIES: Gangrenous left toe with somewhat mottled left foot but warm. Good motor and sensory Data : 06/27/19 11:30 06/27/19 11:30 A&P Assessment and plan (1) Dyslipidemia: Continue statin Status: Chronic (2) End stage renal failure on dialysis: As per nephrology Status: Chronic (3) Diet-controlled type 2 diabetes mellitus: Sliding scale insulin Status: Acute (4) Critical lower limb ischemia: Patient has critical limb ischemia with gangrenous left toe. We will continue antibiotic pain medicine. We will proceed with peripheral angiogram for possible revascularization if indicated. Patient understand that he will end up in amputation since he has already established gangrene of the left fourth toe. He understands all risk benefit and alternative for the procedure. We will proceed with peripheral angiogram 7 AM tomorrow Status: Acute (5) Malignant hypertension: Started on amlodipine and Nitropaste. 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
[2019-06-25 21:05] VITALS: BP 237/118; PULSE 98; RESP 19; O2SAT 100
--- NOTE | 2019-06-25 21:10 | PC.NURSE ---
Pt's B/P continues to be elevated. Unable to get Amlodipine from Pyxis. Pharmacy called x 2. Charge nurse and MD aware. Pharmacy called by Charge Nurse. Awaiting med to be delivered. Pt. unable to transfer to floor until B/P controlled.
[2019-06-25] MEDS: amlodipine 10 mg Tablet PO (21:18)
--- NOTE | 2019-06-25 21:20 | PC.NURSE ---
Warm blanket provided
[2019-06-25] MEDS: nitroglycerin drip 50 MG/250 ML PREMIX IV (23:07)
[2019-06-25 23:39] VITALS: BP 190/102; PULSE 102; RESP 16; O2SAT 100
[2019-06-25 23:43] VITALS: RESP 16
[2019-06-25] MEDS: morphine 4 mg/mL SDV 1 mL IVP (23:43)
[2019-06-26] VITALS (46 sets, daily range): BP systolic 96–198; BP diastolic 61–132; PULSE 89–127; RESP 1–20; TEMP 36.4–36.8; O2SAT 94–100
[2019-06-26] MEDS: sodium chloride 0.9% 1,000 ML 100 ML IV (02:58)
[2019-06-26] MEDS: HYDROcodone-acetaminophen 10-325 mg Tablet 1 TAB PO ×3 (03:24→22:13)
[2019-06-26 05:55] LABS: Basophils # 0.1 10^3/uL (0.0-0.1); Basophils % 1.3 %; Eosinophils # 0.4 10^3/uL (0.0-0.8); Eosinophils % 3.9 %; Hematocrit 30.2 % (42.0-52.0); Hemoglobin 10.2 g/dL (11.7-16.6); Lymphocytes # 1.5 10^3/uL (0.8-4.8); Lymphocytes % 15.3 %; Mean Corpuscular HGB Conc 33.8 g/dL (30.0-36.0); Mean Corpuscular Hemoglobin 30.7 pg (28.0-34.0); Mean Platelet Volume 9.1 fL (7.4-10.4); Neutrophils # 6.6 10^3/uL (1.8-7.7); Nucleated Red Blood Cells % 0 %; Platelet Count 324 10^3/cmm (130-400); Red Blood Count 3.32 10^6/uL (4.1-5.3); Red Cell Distribution Width 14.4 % (12.1-15.1); White Blood Count 9.5 10^3/uL (4.0-10.0)
[2019-06-26 06:32] LABS: Anion Gap 20.7 (5-19); Blood Urea Nitrogen 37 mg/dL (6-20); Calcium 7.9 mg/dL (8.5-10.5); Carbon Dioxide 23 mmol/L (22-29); Chloride 95 mmol/L (98-107); Glucose 122 mg/dL (65-115); Osmolality Calculated 281 mOsm/kg (285-295); Sodium 136 mmol/L (136-145)
[2019-06-26 06:42] LABS: Potassium 2.7 mmol/L (3.5-5.1)
--- NOTE | 2019-06-26 07:21 | XACV_ITS ---
Ht: 175 cm Wt: 91 kg BSA: 2.12 m2 Gender: Male : 1965 Exam Type: Invasive Peripheral Vascular Procedure(s): Procedure Description: Peripheral Cath Diagnostic Procedure Procedure Description: Abdominal aortic angiography Procedure Description: Lower extremities' angiography Procedure Description: Peripheral vascular Intervention Procedure Description: PV Balloon Procedure Description: PV Atherectomy Exam Priority: Routine Lower Extremity Interventional Findings 54-year-old past medical history significant for chronic kidney disease on peritoneal dialysis for gangrenous toe and critical limb ischemia was admitted to the hospital and underwent peripheral angiogram found to have subtotal occlusion of highly calcified mid to distal left SFA, high-grade stenosis of left tibioperoneal trunk, chronically occluded posterior tibial and subtotally occluded proximal anterior tibial with subtotally occluded peroneal with no flow below the knee and in the foot. CSI atherectomy using 2.0mm laura in the SFA followed by 6.0 x 100 mm [id number] balloon was performed. Tibioperoneal trunk and left anterior tibial vessel was treated with CSI atherectomy using 1.25 bur followed by 3.0 x40 mm balloon. There was complete occlusion of arch of the foot. Using command wire and 2.0 x 250 mm balloon distal anterior tibial and arch was reconstructed. At the end of the case good flow through left SFA tibioperoneal with two-vessel runoff including anterior tibial and peroneal was noted. Distal anterior tibial and arch was also noted to be getting blood supply. Distal posterior tibial was also noted to be reconstituted. Good anterior and posterior tibial pulse were dopplered. His foot color increased pain got improved. Conclusions Peripheral Procedure Description: Critical limb ischemia with gangrenous mid toe of left footRutherford grade V :Neel stage IV. . Abdominal aortogram showed normal abdominal aorta#1 N ormal right and left common iliac arteries #2 N ormal right and left external and internal iliac arteries #3 Normal left and right common femoral #4 Highly calcified left and right profundofemoral artery with luminal irregularity#5 Right SFA is calcified but with luminal irregularity without significant stenosis#6 Highly calcified SFA with mid subtotal occlusion with tandem stenosis#7 Highly calcified left popliteal artery without significant stenosis#8 Highly calcified left tibioperoneal trunk with moderate 60 to 70% stenosis#9 Proximal subtotal occlusion of left anterior tibial artery#10 Proximal subtotal occlusion of left peroneal artery#11 Chronically occluded posterior tibial vessel#12 No arch vessels noted . Recommendations 1-Return to inpatient for close monitoring and routine cath care 2-Risk factor modification for secondary prevention 3-Statin and aspirin 81 mg life--long, if tolerate, continue Plavix 75mg p.o. daily for three months. We will assess at the end of one year again to continue if further or not 5-Continue optimal medical management 6-Follow up with Dr. Gr in four weeks and your primary care in 10 days. Hemodynamic Data Phase:Rest AO : 179.0 mmHg / 63.0 mmHg ( 105.0 mmHg ) @ 2:53:00 AM 137.0 mmHg / 80.0 mmHg ( 106.0 mmHg ) @ 2:55:00 AM 205.0 mmHg / 96.0 mmHg ( 125.0 mmHg ) @ 3:03:00 AM 122.0 mmHg / 77.0 mmHg ( 99.0 mmHg ) @ 3:07:00 AM 120.0 mmHg / 54.0 mmHg ( 78.0 mmHg ) @ 3:16:00 AM 150.0 mmHg / 58.0 mmHg ( 92.0 mmHg ) @ 3:21:00 AM 191.0 mmHg / 69.0 mmHg ( 112.0 mmHg ) @ 3:23:00 AM 138.0 mmHg / 60.0 mmHg ( 85.0 mmHg ) @ 3:27:00 AM 154.0 mmHg / 63.0 mmHg ( 91.0 mmHg ) @ 3:37:00 AM 154.0 mmHg / 59.0 mmHg ( 91.0 mmHg ) @ 3:47:00 AM 155.0 mmHg / 63.0 mmHg ( 95.0 mmHg ) @ 3:59:00 AM 178.0 mmHg / 70.0 mmHg ( 108.0 mmHg ) @ 4:10:00 AM 172.0 mmHg / 71.0 mmHg ( 111.0 mmHg ) @ 4:43:00 AM Access Site Site: Right Femoral artery Sheath Size: 6 Fr Hemost... Method: Suture Hemost... Success: Successful Procedure Details Findings Pre-Procedure Time Out. Identified patient by full name and date of as verbalized by the patient/guarantor. Does the consent match the physician's order: Yes. Accurate & Complete Informed Consent: Yes. Inpatient/Outpatient History & Physical on Chart: Yes. If H&P is completed, is and addenduem needed: N/A; If yes, is the addendum complete: N/A. Visualize and Verify Site with Patient/Guarantor: N/A. Relevant Radiology Images available: Yes. Pre-op teaching completed and patient verbalized understanding. The risks, benefits, and alternatives of sedation and/or procedure were discussed by physician. The patient agrees to continue. Procedure started. Current diagnosis: Critical Limb Ischemia, gangrenous left foot. IV Site on Arrival: 20 gauge in the left hand. IV Site on Arrival: 20 gauge in the right anticubital. IV Fluids: 0.9% NaCl at KVO. 400 mL infused prior to medical lab director. Pre Procedural Pulses: bilateral dorsalis pedis was 1+. Pre Procedural Pulses: bilateral posterior tibial was 1+. Pre Procedural Pulses: bilateral radial was 2+. Oxygen started at 2liters/min via nasal canula. bilateral groins was prepped with chloroprep then draped in the usual sterile fashion. Baseline sample Acquired. HR: 98 BPM. Equipment: 6F - Femoral. Cardiac Cath Pack. ACIST Manifold Kit Model BT 2000. Heparinized Saline (2 units/mL), 1000 mL bag. Kit, Micropuncture. Physician notified. Baseline sample Acquired. HR: 100 BPM. Physician arrived. Physician scrubbed in. Immediate Pre-Procedure Time Out. Correct Patient: Yes; Correct Procedure: Yes; Correct Site: Yes; Correct Patient Position: Yes; Correct Supplies: Yes; Dried Flammable Prep: Yes; Blood Products Available: N/A;. Arterial access obtained with micropuncture set. A E-Sign 5F UF catheter 65cm was advanced over the wire and used for Abdominal aortogram. Inventory is TR Glidewire Angled .035 260cm. Glidewire inserted through catheter. UF catheter removed over the wire. 6f 11cm sheath exchanged for 6f 45cm sheath. End sheath placement - left common iliac. Left common iliac selected and arteriogram with runoff performed @ 10 mL/sec for a total of 20 mL. Side port of sheath attached to Normal Saline flush at KVO to maintain patency. Seeker inserted over the wire. A [facility] SEEKER SUPPORT CATHETER .035 was advanced over the wire. Seeker and wire advanced to lesion in mid LSFA. Wire placed across lesion in mid LSFA. Lidocaine 1% infiltrated to the right groin. Seeker advanced across lesion. Glidewire removed. Viper wire inserted. CSI laura inserted to mid LSFA. Pass Number: 1 A 2.0 laura was advanced across the Mid Superficial Femoral, Left for 0:10 seconds. Pass Number: 1 A 2.0 alura was advanced across the Distal Superficial Femoral, Left for 0:10 seconds. Pass Number: 1 A 2.0 laura was advanced across the Proximal Popliteal, Left for 0:10 seconds. CSI laura removed over the wire. Seeker inserted over the wire. Viper wire removed. Glidewire inserted. Seeker removed over the wire. Balloon and wire inserted to the superficial femoral. Inflation number : 1 A AB ARMADA 35 OTW [id number] was prepped and advanced across the Distal Superficial Femoral, Left , then inflated to 4 JOSE ALFREDO for 1:04 seconds. Inflation number: 2 The AB ARMADA 35 OTW [id number] was reinflated across the Distal Superficial Femoral, Left, to 6 JOSE ALFREDO for 2:00 seconds. Inflation number: 1 The AB ARMADA 35 OTW [id number] was reinflated across the Mid Superficial Femoral, Left, to 8 JOSE ALFREDO for 2:06 seconds. Inflation number: 2 The AB ARMADA 35 OTW [id number] was reinflated across the Mid Superficial Femoral, Left, to 8 JOSE ALFREDO for 1:03 seconds. Inflation number: 1 The AB ARMADA 35 OTW [id number] was reinflated across the Proximal Superficial Femoral, Left, to 8 JOSE ALFREDO for 1:04 seconds. Inflation number: 2 The AB ARMADA 35 OTW [id number] was reinflated across the Proximal Superficial Femoral, Left, to 8 JOSE ALFREDO for 1:03 seconds. Inflation number: 3 The AB ARMADA 35 OTW [id number] was reinflated across the Proximal Superficial Femoral, Left, to 8 JOSE ALFREDO for 0:32 seconds. Balloon out over the wire. Results checked. Glidewire removed. Viper wire inserted to AT. Seeker removed. CSI laura 1.25mm inserted over the wire to the AT. Pass Number: 1 A 1.25 laura was advanced across the Tibial Peroneal Trunk, Left for 0:15 seconds at 0 rpm?s. Pass Number: 1 A 1.25 laura was advanced across the Proximal Anterior Tibial, Left for 0:10 seconds at 0 rpm?s. Matteson removed. Balloon inserted. Inflation number : 1 A AB ARMADA 14 OTW [id number] was prepped and advanced across the Proximal Anterior Tibial, Left , then inflated to 5 JOSE ALFREDO for 0:17 seconds. Inflation number: 3 The AB ARMADA 14 OTW [id number] was reinflated across the Proximal Anterior Tibial, Left, to 4 JOSE ALFREDO for 0:32 seconds. Inflation number: 4 The AB ARMADA 14 OTW [id number] was reinflated across the Proximal Anterior Tibial, Left, to 5 JOSE ALFREDO for 0:52 seconds. Inflation number: 2 The AB ARMADA 14 OTW [id number] was reinflated across the Proximal Anterior Tibial, Left, to 5 JOSE ALFREDO for 0:13 seconds. Inflation number: 3 The AB ARMADA 14 OTW [id number] was reinflated across the Tibial Peroneal Trunk, Left, to 5 JOSE ALFREDO for 1:04 seconds. Inflation number: 1 The AB ARMADA 14 OTW [id number] was reinflated across the Tibial Peroneal Trunk, Left, to 6 JOSE ALFREDO for 0:08 seconds. Inflation number: 2 The AB ARMADA 14 OTW [id number] was reinflated across the Tibial Peroneal Trunk, Left, to 10 JOSE ALFREDO for 1:04 seconds. Balloon removed. Seeker inserted. Wire removed. Results checked. Glidewire inserted through Seeker. Glidewire removed. Command wire inserted. Seeker removed. Command wire advanced to pedal arch. Balloon inserted. Inflation number : 1 A AB ARMADA 14 OTW [id number] was prepped and advanced across the Distal Anterior Tibial, Left , then inflated to 10 JOSE ALFREDO for 1:21 seconds. Inflation number: 2 The AB ARMADA 14 OTW [id number] was reinflated across the Distal Anterior Tibial, Left, to 10 JOSE ALFREDO for 1:05 seconds. Inflation number: 1 The AB ARMADA 14 OTW [id number] was reinflated across the Mid Anterior Tibial, Left, to 18 JOSE ALFREDO for 1:04 seconds. Balloon removed. Seeker inserted. Results checked. Glidewire inserted. Seeker and wire removed. Left superficial femoral selected and arteriogram with runoff performed @ 10 mL/sec for a total of 30 mL. 6f 45cm sheath exchanged for 6f 11cm sheath over glidewire. Sheath injected in Right common femoral artery and runoff performed. A Suture was successful obtaining hemostatsis at the Right Femoral artery insertion site. Sheath(s) sutured into position with 2-0 silk and sterile 4x4's and Op-site applied over the site. No oozing or signs and symptoms of hematoma noted. Arterial sheath flushed and connected to tranducer and pressure bag with heparinized saline. Post Procedure: Pulses reassessed and unchanged. PERRLA. Strong, equal hand senior data developer bilaterally. No VTE prophylaxis required. Medication's Wasted: Lidocaine 1% = 4 mL. Medication's Wasted: Nitro = 49.15 mg. Medication's Wasted: Heparin = 1000 units. Medication's Wasted: Other = Hydralizine 10 mg. Medication's Wasted: Other = Cardene 23.5 mg. Medication's Wasted: Other = Fentanyl 50 mcg. Medication's Wasted: Other = Verapamil 4 mg. Total IV fluids: 75 mL. Fluoro: 30:55. Contrast type used: Visipaque 320 mgI/mL, 500 mL bottle. [id number]. Post-op diagnosis: PAD. Complications: None. Estimated blood loss: 5mL-10mL. Procedure completed. Patient transferred by bed to ICU. Procedure Medications Start: 7:46 AM Stop: 7:46 AM Medication: Versed Amount: 1 mg Route: I.V. Start: 7:38 AM Stop: 7:38 AM Medication: Versed Amount: 1 mg Route: I.V. Start: 7:38 AM Stop: 7:38 AM Medication: Fentanyl Amount: 50 mcg Route: I.V. Start: 7:56 AM Stop: 7:56 AM Medication: Hydralazine Amount: 10 mg Route: I.V. Start: 8:01 AM Stop: 8:01 AM Medication: Fentanyl Amount: 25 mcg Route: I.V. Start: 8:05 AM Stop: 8:05 AM Medication: Heparin Amount: 5000 units Route: I.V. Start: 8:06 AM Stop: 8:06 AM Medication: Versed Amount: 1 mg Route: I.V. Start: 8:07 AM Stop: 8:07 AM Medication: Fentanyl Amount: 25 mcg Route: I.V. Start: 8:15 AM Stop: 8:15 AM Medication: Heparin Amount: 3000 units Route: I.V. Start: 8:24 AM Stop: 8:24 AM Medication: Nitrogylcerin Amount: 400 mcg Route: I.A. Start: 8:26 AM Stop: 8:26 AM Medication: Fentanyl Amount: 50 mcg Route: I.V. Start: 8:40 AM Stop: 8:40 AM Medication: Nitrogylcerin Amount: 400 mcg Route: I.A. Start: 8:46 AM Stop: 8:46 AM Medication: Cardene Amount: 500 mcg Route: I.A. Start: 8:54 AM Stop: 8:54 AM Medication: Morphine Amount: 4 mg Route: I.V. Start: 9:06 AM Stop: 9:06 AM Medication: Fentanyl Amount: 50 mcg Route: I.V. Start: 8:35 AM Stop: 8:35 AM Medication: Versed Amount: 1 mg Route: I.V. Start: 8:35 AM Stop: 8:35 AM Medication: Fentanyl Amount: 50 mcg Route: I.V. Start: 9:12 AM Stop: 9:12 AM Medication: Cardene Amount: 500 mcg Route: I.A. Start: 9:30 AM Stop: 9:30 AM Medication: Fentanyl Amount: 50 mcg Route: I.V. Start: 9:42 AM Stop: 9:42 AM Medication: Fentanyl Amount: 50 mcg Route: I.V. I, the attending physician, have reviewed and verified all procedure medications. Yes, all medications given per verbal order History/Risk Factors Hypertension: Yes Dyslipidemia: No Diabetic Therapy: Oral Peripheral Arterial Disease (PAD): Yes Myocardial Infarction (KS): Yes Obesity: Yes Renal Disease: Yes Tobacco Use: Never Dialysis: Current Prior Interventions PCI: Yes CABG: No Valve Surgery: No Report Signatures Finalized by:Greta Gr MD on 07/07/2019 7:28:24 PM
--- NOTE | 2019-06-26 07:39 | W.PM.OPSUD ---
Surgery/Procedure H&P Update DATE OF PROCEDURE: June 26, 2019 DATE H&P PERFORMED: 06/26/19 H&P UPDATE INFORMATION: I have reviewed H&P completed within last 30 days and I have examined patient prior to procedure PATIENT REASSESSED PRIOR TO SEDATION, WITH NO CHANGE NOTED: Yes PHYSICAL EXAM: alert, oriented x 3, clear to auscultation bilaterally and regular rate & rhythm AIRWAY EVAL/ANESTHESIA PLAN: normal airway, ASA II and Risks, benefits & alternatives of sedation and/or procedure discussed
--- NOTE | 2019-06-26 10:16 | PM.PN ---
Subjective Subjective: Interval history: Patient underwent peripheral angiogram found to have subtotal occlusion of highly calcified mid to distal left SFA, high-grade stenosis of left tibioperoneal trunk, chronically occluded posterior tibial and subtotally occluded proximal anterior tibial with subtotally occluded peroneal with no flow below the knee and in the foot. CSI atherectomy using 2 oh bur in the SFA followed by 6.0 x 100 mm [id number] balloon was performed. Tibioperoneal trunk and left anterior tibial vessel was treated with CSI atherectomy using 1.25 bur followed by 3.0 x40 mm balloon. There was complete occlusion of arch of the foot. Using command wire and 2.0 x 250 mm balloon distal anterior tibial and arch was reconstructed. At the end of the case good flow through left SFA tibioperoneal with two-vessel runoff including anterior tibial and peroneal was noted. Distal anterior tibial and arch was also noted to be getting blood supply. Distal posterior tibial was also noted to be reconstituted. Vitals/I&O/Wt Last Vital Signs Temp 98.1 F 06/26/19 02:30 Pulse 94 06/26/19 07:00 Resp 15 06/26/19 07:00 BP 147/85 06/26/19 07:00 Pulse Ox 97 06/26/19 07:00 06/25/19 06/26/19 06/26/19 22:59 06:59 14:59 Intake Total 15.15 / 15.15 Balance 15.15 / 15.15 Weight last 48 hrs Weight 200 lb Physical Exam Narrative: EXAM NARRATIVE: GENERAL: Patient is alert, awake and oriented x3. Mild distress due to left gangrenous toe pain NECK: No jugular vein distension. HEENT: No cyanosis. No icterus. No pallor. HEART: Regular S1 and S2. No murmur, rub or gallop. LUNGS: Decreased breath sound bilaterally.. CENTRAL NERVOUS SYSTEM: Grossly nonfocal. EXTREMITIES: Gangrenous left toe with somewhat mottled left foot but warm. Good motor and sensory good dopplerable anterior tibial pulse nor noted in the left foot. Left foot appeared to be of normal color warm and moist. Const: COMMON NORMALS: alert Resp: COMMON NORMALS: clear to auscultation bilaterally AUSCULTATION: clear to auscultation bilaterally Neuro: SENSORIUM/ORIENTATION: Yes alert Data : 06/26/19 05:11 05/12/20 05:11 A&P Assessment and plan (1) Dyslipidemia: Continue statin Status: Chronic (2) End stage renal failure on dialysis: As per nephrology Status: Chronic (3) Diet-controlled type 2 diabetes mellitus: Sliding scale insulin Status: Acute (4) Critical lower limb ischemia: Patient underwent peripheral angiogram found to have subtotal occlusion of highly calcified mid to distal left SFA, high-grade stenosis of left tibioperoneal trunk, chronically occluded posterior tibial and subtotally occluded proximal anterior tibial with subtotally occluded peroneal with no flow below the knee and in the foot. CSI atherectomy using 2.0 bur in the left SFA followed by 6.0 x 100 mm [id number] balloon was performed. Tibioperoneal trunk and left anterior tibial vessel was treated with CSI atherectomy using 1.25 bur followed by 3.0 x40 mm balloon. There was complete occlusion of arch of the foot. Using command wire and 2.0 x 250 mm balloon distal anterior tibial and arch was reconstructed. At the end of the case good flow through left SFA tibioperoneal with two-vessel runoff including anterior tibial and peroneal was noted. Distal anterior tibial and arch was also noted to be getting blood supply. Distal posterior tibial was also noted to be reconstituted. Status: Acute (5) Malignant hypertension: Started on amlodipine and Nitropaste. Continue to monitor Status: Acute Attestations Medical Necessity Statement*: Patient requires continuation hospitalization for postop care Coding Level of Care Code Established Pt Acute Restaurant Crew Person for g Fwd Patient Type Established Exam Expanded Problem Focused Medical Decision Making Moderate Complexity Diagnoses Dyslipidemia E78.5 End stage renal failure on dialysis N18.6; Z99.2 Diet-controlled type 2 diabetes mellitus E11.9 Critical lower limb ischemia I99.8 Malignant hypertension I10
--- NOTE | 2019-06-26 10:27 | PC.NURSE ---
attempted to call Dr. Gr to see about double Nitro order. No answer, IV Nitro restarted and job specification writer will attempt to call again before paste is do. Both orders are active.
--- NOTE | 2019-06-26 12:58 | P.PN_ITS ---
Subjective Subjective: Interval history: S/p extensive angioplasty this morning (please see Dr Gr's report). Feels well today and tolerated the procedure well. Now hooking up to the PD machine (came to the floor very late last night ). He denies uremic Sx, denies hypervol Sx. PD is going well without issues, Vitals/I&O/Wt Last Vital Signs Temp 98.1 F 06/26/19 02:30 Pulse 103 H 06/26/19 11:00 Resp 10 L 06/26/19 11:00 BP 170/89 06/26/19 11:00 Pulse Ox 99 06/26/19 11:00 06/25/19 06/26/19 06/26/19 22:59 06:59 14:59 Intake Total 15.15 / 15.15 Balance 15.15 / 15.15 Weight last 48 hrs Weight 90.718 kg Physical Exam Narrative: EXAM NARRATIVE: The exam was performed with the aid of the bedside RN via telemed HENMT: COMMON NORMALS: normocephalic and head/scalp atraumatic HEAD & SCALP: normocephalic and atraumatic Neck/C-Spine: COMMON NORMALS: no JVD Chest: COMMONS NORMALS: inspection of chest normal Resp: COMMON NORMALS: normal respiratory effort and no retractions Cardio: COMMON NORMALS: no JVD and regular rate RATE: regular rate GI: COMMON NORMALS: normal to inspection, nondistended, normoactive bowel sounds : COMMON NORMALS: Yes external exam normal Data : 06/26/19 05:11 06/26/19 05:11 A&P Additional A&P Information 1. ESRD on PD - Will allow him to perform his own PD during his admission - 5 exchanges of 2.5L of yellow (1.5%) solution (4 at night and one day dwell) night dwell over 8hrs - dose meds for eGFR < 15 on PD 2. Arterial stent to his left leg today - amputation of his left fourth toe planned pending surgery eval 3. Hypertension - Bp coming down - Can add Metoprolol if Bp remains high. 4. Anemia at goal for ESRD 5. Bone metabolism of ESRD - cont OP meds, no need to follow these levels in house Attestations Medical Necessity Statement*: eval and mgmt of ESRD Coding Level of Care Code Acute Theatre Arts Professor for Chg Fwd
[2019-06-26] MEDS: potassium chloride premix 40 MEQ/100 ML PREMIX 25 MEQ IV ×2 (14:18→22:15)
--- NOTE | 2019-06-26 17:20 | P.PN_ITS ---
Subjective Subjective: Interval history: Mr. Kearns is currently resting comfortably in the ICU having undergone successful intervention by Dr. Gr earlier today. Vitals/I&O/Wt Last Vital Signs Temp 98.1 F 06/26/19 02:30 Pulse 99 06/26/19 15:00 Resp 14 06/26/19 15:00 BP 147/83 06/26/19 15:00 Pulse Ox 94 06/26/19 15:00 06/26/19 06/26/19 06/26/19 06:59 14:59 22:59 Intake Total 15.15 / 15.15 Output Total 330 / 330 Balance 15.15 / 15.15 -330 / -330 Weight last 48 hrs Weight 200 lb Physical Exam Extremity: NARRATIVE EXTREMITY EXAM: Dry gangrenous left fourth toe Data : 06/26/19 05:11 06/26/19 05:11 A&P Assessment and plan (1) Peripheral vascular disease: Dry gangrenous left fourth toe, status post successful percutaneous intervention by Dr. Gr earlier today. At Mr. Kearns request, we will plan for left fourth toe amputation tomorrow. Details and risks of procedure carefully and frankly discussed. Proper consents will be provided for review and signature. Status: Acute Attestations Medical Necessity Statement*: Dry gangrene left fourth toe Time Spent in Patient Care: 16 - 35 minutes Coding Level of Care Code Acute Screen Printing Loader Unloader for Fabian Leonardd Diagnoses Peripheral vascular disease I73.9
[2019-06-26 19:35] LABS: Potassium 3.3 mmol/L (3.5-5.1)
[2019-06-26 20:49] LABS: Partial Thromboplastin Time 44.2 SECONDS (23.9-36.7)
--- NOTE | 2019-06-26 21:15 | PC.NURSE ---
Dr Gr at bedside, updated on condition. Orders received to check PTT and remove femoral art line if PTT less than 45.
[2019-06-26] MEDS: atorvastatin 40 mg Tablet 20 MG PO (22:13)
[2019-06-26] MEDS: apixaban 5 mg Tablet 2.5 MG PO (22:14)
--- NOTE | 2019-06-26 22:48 | PC.NURSE ---
Arterial sheath removed at 2148, manual pressure held for 20 minutes until hemostasis achieved. No hematoma formation noted. VSS through procedure. Patient given hydrocodone for pain.
[2019-06-27] VITALS (41 sets, daily range): BP systolic 97–190; BP diastolic 61–107; PULSE 69–109; RESP 0–20; TEMP 36.5–36.9; O2SAT 93–100
[2019-06-27] MEDS: nitroglycerin drip 50 MG/250 ML PREMIX 9 MG IV (00:49)
[2019-06-27] MEDS: sodium chloride 0.9% 1,000 ML 100 ML IV ×2 (00:50→12:24)
--- NOTE | 2019-06-27 06:36 | P.PN_ITS ---
Subjective Subjective: Interval history: Sleeping on rounds this morning. Nursing service reports uneventful night. Good perfusion to left foot. Vitals/I&O/Wt Last Vital Signs Temp 98.1 F 06/27/19 06:00 Pulse 99 06/27/19 06:00 Resp 12 06/27/19 06:00 BP 141/77 06/27/19 06:00 Pulse Ox 95 06/27/19 06:00 06/26/19 06/26/19 06/27/19 14:59 22:59 06:59 Intake Total 1000 / 1000 583.6 / 1583.6 2751.25 / 4334.85 Output Total 330 / 330 575 / 905 2650 / 3555 Balance 670 / 670 8.6 / 678.6 101.25 / 779.85 Weight last 48 hrs Weight 200 lb Physical Exam Extremity: NARRATIVE EXTREMITY EXAM: Foot is warm. Gangrenous left fourth toe Data : 06/26/19 05:11 06/26/19 19:10 A&P Assessment and plan (1) Peripheral vascular disease: Gangrenous left fourth toe status post successful intervention by Dr. Gr. Will plan for left fourth toe amputation this afternoon. Details risk of procedure again discussed with Leatha Kearns. He is eager to proceed. Status: Acute Attestations Medical Necessity Statement*: Gangrene left fourth toe Time Spent in Patient Care: less than 15 minutes Coding Level of Care Code Acute Voip Network Engineer for Fabian Pak Diagnoses Peripheral vascular disease I73.9
--- NOTE | 2019-06-27 08:40 | PC.NURSE ---
Passed in nursing report to hold doris mtz am in preparation for toe amputation
[2019-06-27] MEDS: levothyroxine 112 mcg Tablet PO (08:43)
[2019-06-27] MEDS: cetirizine 10 mg Tablet PO (08:44)
[2019-06-27] MEDS: amlodipine 10 mg Tablet PO (08:44)
--- NOTE | 2019-06-27 10:09 | P.ANESASSM_ITS ---
Pre-Anesthetic Assessment Pre-Anesthetic Assessment: Height/Weight: Height 1.75 m Weight 90.718 kg Temp Pulse Resp BP Pulse Ox 98.1 F 99 12 141/77 95 06/27/19 06:00 06/27/19 06:00 06/27/19 06:00 06/27/19 06:00 06/27/19 06:00 Preop Diagnosis: ischemic toe Proposed Procedure: Operation Date: 06/26/19 07:00 Proposed Procedures p Peripheral Diagnostic(Not Applicable) - Greta Gr MD Operation Date: 06/27/19 15:00 Proposed Procedures p Amputation left 4th toe(Left) - Tommy Leonardo MD Exam: Pre-Anes Outpt Exam: alert, oriented x 3, clear to auscultation bilaterally and regular rate & rhythm CV/HEM: CV/HEM: Anemia, HTN and PVD : : Chronic renal failuer (on peritoneal dialysis) Metabolic: Metabolic: DM Anesthetic Plan: ASA status: 3 Anesthesia: MAC Risk of > 500 ml blood loss (7ml/kg in children): No Meds/Allergies Current Medications: Current Medications Generic Name Dose Route Start Last Admin Trade Name Freq PRN Reason Stop Dose Admin Hydrocodone Bitart /Acetaminophen 1 tab 06/25/19 19:19 06/26/19 22:13 [place] 10-325 Mg PO 1 tab Q4H PRN Administration Pain Amlodipine Besylat e 10 mg 06/25/19 20:00 06/27/19 08:44 Norvasc PO 10 mg DAILY THEA Administration Apixaban 2.5 mg 06/26/19 18:00 06/27/19 08:40 Eliquis PO Not Given BID THEA Atorvastatin Calci um 20 mg 06/25/19 21:00 06/26/19 22:13 Lipitor PO 20 mg BEDTIME THEA Administration Cetirizine HCl 10 mg 06/26/19 09:00 06/27/19 08:44 Zyrtec PO 10 mg DAILY THEA Administration Sodium Chloride 1,000 mls @ 100 m ls/hr 06/25/19 19:12 06/27/19 00:50 Sodium Chloride 0.9% IV 100 mls/hr .Q10H THEA Administration Nitroglycerin/Dext david 50 mg in 250 mls @ 0 mls/hr 06/25/19 22:00 06/27/19 00:[address] ip IV 30 mcg/min .Q0M THEA 9 mls/hr Administration Protocol Per Protocol Levothyroxine Sodi um 112 mcg 06/26/19 09:00 06/27/19 08:43 Synthroid PO 112 mcg DAILY THEA Administration Nitroglycerin 1 inch 06/25/19 18:15 06/27/19 06:17 Nitro-Bid TOPICAL Not Given Q6H THEA Zolpidem Tartrate 10 mg 06/25/19 21:00 06/26/19 22:15 Ambien PO 10 mg BEDTIME THEA Administration PFSH Anesthesia PFSH: Medical History (Updated 06/25/19 @ 19:41 by Greta Gr MD) Acquired hypothyroidism Acquired spondylolisthesis Anxiety and depression Chronic hypertension Critical lower limb ischemia Diet-controlled type 2 diabetes mellitus Dyslipidemia End stage renal failure on dialysis Environmental and seasonal allergies Erectile dysfunction due to diseases classified elsewhere HPTH (hyperparathyroidism) Malignant hypertension PAD (peripheral artery disease) Polyneuropathy Vitamin D deficiency Surgical History History of heart artery stent History of repair of right rotator cuff History of toe surgery Left great toe debridement Family History Brother Cancer Mother Cancer Father Heart disease Social History Smoking and tobacco status: never smoked Second hand smoke exposure: No Smoking risk assessment/counseling performed?: No Alcohol intake: unknown Lives independently: Yes Housing: House Marital status: Legally Highest education level completed: Some College, No Degree service: No Current occupational status: disabled Pets and animals: Yes Current gender identity: Male Data Anesthesia CBC & Chem 7: 06/26/19 05:11 06/26/19 19:10 Other Labs: Laboratory Results - last 48 hr 06/25/19 06/25/19 06/25/19 14:22 14:22 14:22 WBC 12.3 H RBC 3.71 L Hgb 11.1 L Hct 33.7 L MCV 90.8 MCH 29.9 MCHC 32.9 RDW 14.5 Plt Count 314 MPV 8.7 Neut % (Auto) 74.4 Lymph % (Auto) 13.1 [place] % (Auto) 8.5 Eos % (Auto) 2.1 Baso % (Auto) 1.3 Neut # (Auto) 9.1 H Lymph # (Auto) 1.6 [place] # (Auto) 1.0 H Eos # (Auto) 0.3 Baso # (Auto) 0.2 H Nucleated RBC % (auto) 0 Nucleated RBCs # 0.0 PT 14.20 H INR 1.06 APTT 36.8 H Sodium 134 L Potassium 3.3 L Chloride 90 L Carbon Dioxide 25 Anion Gap 22.3 H BUN 33 H Creatinine 9.3 H* GFR Calculation 6.0 L Glucose 156 H POC Glucose Calculated Osmolality 278 L Calcium 8.5 Phosphorus Magnesium Total Bilirubin 0.2 AST 11 ALT 8 Alkaline Phosphatase 114 Total Protein 6.7 Albumin 3.2 L Globulin 3.5 Urine Color Urine Appearance Urine pH Ur Specific [place] Urine Protein Urine Glucose (UA) Urine Ketones Urine Blood Urine Nitrate Urine Bilirubin Urine Urobilinogen Ur Leukocyte Esterase Urine RBC Urine WBC Ur Squamous Epith Cells Urine Bacteria 06/25/19 06/25/19 06/25/19 14:22 16:15 18:11 WBC RBC Hgb Hct MCV MCH MCHC RDW Plt Count MPV Neut % (Auto) Lymph % (Auto) [place] % (Auto) Eos % (Auto) Baso % (Auto) Neut # (Auto) Lymph # (Auto) [place] # (Auto) Eos # (Auto) Baso # (Auto) Nucleated RBC % (auto) Nucleated RBCs # PT INR APTT Sodium Potassium Chloride Carbon Dioxide Anion Gap BUN Creatinine GFR Calculation Glucose POC Glucose 289 Calculated Osmolality Calcium Phosphorus 4.8 H Magnesium 1.7 Total Bilirubin AST ALT Alkaline Phosphatase Total Protein Albumin Globulin Urine Color Straw Urine Appearance Clear Urine pH 6.5 Ur Specific [place] 1.005 Urine Protein 1+ H Urine Glucose (UA) 1+ Urine Ketones Negative Urine Blood 2+ H Urine Nitrate Negative Urine Bilirubin Neg Urine Urobilinogen Norm Ur Leukocyte Esterase Negative Urine RBC 5-10 H Urine WBC 0-4 H Ur Squamous Epith Cells 0-4 H Urine Bacteria Trace 06/26/19 06/26/19 06/26/19 05:11 05:11 19:10 WBC 9.5 RBC 3.32 L Hgb 10.2 L Hct 30.2 L MCV 91.0 MCH 30.7 MCHC 33.8 RDW 14.4 Plt Count 324 MPV 9.1 Neut % (Auto) 69.0 Lymph % (Auto) 15.3 [place] % (Auto) 10.0 Eos % (Auto) 3.9 Baso % (Auto) 1.3 Neut # (Auto) 6.6 Lymph # (Auto) 1.5 [place] # (Auto) 1.0 H Eos # (Auto) 0.4 Baso # (Auto) 0.1 Nucleated RBC % (auto) 0 Nucleated RBCs # 0.0 PT INR APTT Sodium 136 Potassium 2.7 L* 3.3 L Chloride 95 L Carbon Dioxide 23 Anion Gap 20.7 H BUN 37 H Creatinine 9.3 H* GFR Calculation 6.0 L Glucose 122 H POC Glucose Calculated Osmolality 281 L Calcium 7.9 L Phosphorus Magnesium Total Bilirubin AST ALT Alkaline Phosphatase Total Protein Albumin Globulin Urine Color Urine Appearance Urine pH Ur Specific [place] Urine Protein Urine Glucose (UA) Urine Ketones Urine Blood Urine Nitrate Urine Bilirubin Urine Urobilinogen Ur Leukocyte Esterase Urine RBC Urine WBC Ur Squamous Epith Cells Urine Bacteria 06/26/19 20:20 WBC RBC Hgb Hct MCV MCH MCHC RDW Plt Count MPV Neut % (Auto) Lymph % (Auto) [place] % (Auto) Eos % (Auto) Baso % (Auto) Neut # (Auto) Lymph # (Auto) [place] # (Auto) Eos # (Auto) Baso # (Auto) Nucleated RBC % (auto) Nucleated RBCs # PT INR APTT 44.2 H Sodium Potassium Chloride Carbon Dioxide Anion Gap BUN Creatinine GFR Calculation Glucose POC Glucose Calculated Osmolality Calcium Phosphorus Magnesium Total Bilirubin AST ALT Alkaline Phosphatase Total Protein Albumin Globulin Urine Color Urine Appearance Urine pH Ur Specific [place] Urine Protein Urine Glucose (UA) Urine Ketones Urine Blood Urine Nitrate Urine Bilirubin Urine Urobilinogen Ur Leukocyte Esterase Urine RBC Urine WBC Ur Squamous Epith Cells Urine Bacteria Cardiac Studies: No Data to Display
--- NOTE | 2019-06-27 11:05 | P.PN_ITS ---
Subjective Subjective: Interval history: Continues to do fine denies any pain in the foot except in the affected gangrenous toe. Vitals/I&O/Wt Last Vital Signs Temp 98.1 F 06/27/19 06:00 Pulse 88 06/27/19 10:00 Resp 0 L 06/27/19 10:00 BP 150/79 06/27/19 10:00 Pulse Ox 95 06/27/19 07:30 06/26/19 06/27/19 06/27/19 22:59 06:59 14:59 Intake Total 583.6 / 1583.6 2751.25 / 4334.85 220 / 220 Output Total 575 / 905 2650 / 3555 250 / 250 Balance 8.6 / 678.6 101.25 / 779.85 -30 / -30 Weight last 48 hrs Weight 200 lb Physical Exam Narrative: EXAM NARRATIVE: GENERAL: Patient is alert, awake and oriented x3. Mild distress due to left gangrenous toe pain NECK: No jugular vein distension. HEENT: No cyanosis. No icterus. No pallor. HEART: Regular S1 and S2. No murmur, rub or gallop. LUNGS: Decreased breath sound bilaterally.. CENTRAL NERVOUS SYSTEM: Grossly nonfocal. EXTREMITIES: Gangrenous left toe with somewhat mottled left foot but warm. Good motor and sensory good dopplerable anterior tibial pulse nor noted in the left foot. Left foot appeared to be of normal color warm and moist. Const: COMMON NORMALS: alert Resp: COMMON NORMALS: clear to auscultation bilaterally AUSCULTATION: clear to auscultation bilaterally Neuro: SENSORIUM/ORIENTATION: Yes alert Data : 06/26/19 05:11 06/26/19 19:10 A&P Assessment and plan (1) Peripheral vascular disease: Status post revascularization of the left leg including left SFA tibioperoneal trunk anterior tibial and arch of left foot. Patient is to undergo amputation of the toe this evening. Hold anticoagulation for now. Status: Acute Attestations Medical Necessity Statement*: Requires continuation hospitalization for above defined care. Coding Level of Care Code Established Pt Acute Esthetician Makeup Artist for Fabian Fwd Patient Type Established History Expanded Problem Focused Medical Decision Making Moderate Complexity Diagnoses Peripheral vascular disease I73.9
[2019-06-27 11:38] LABS: Basophils # 0.1 10^3/uL (0.0-0.1); Eosinophils # 0.4 10^3/uL (0.0-0.8); Eosinophils % 3.4 %; Hematocrit 28.6 % (42.0-52.0); Hemoglobin 9.3 g/dL (11.7-16.6); Lymphocytes # 1.3 10^3/uL (0.8-4.8); Lymphocytes % 12.2 %; Mean Corpuscular HGB Conc 32.5 g/dL (30.0-36.0); Mean Corpuscular Hemoglobin 30.5 pg (28.0-34.0); Mean Corpuscular Volume 93.8 fL (80-94); Mean Platelet Volume 9.3 fL (7.4-10.4); Monocytes # 1.1 10^3/uL (0.2-0.9); Neutrophils # 7.8 10^3/uL (1.8-7.7); Neutrophils % 72.8 %; Nucleated Red Blood Cells % 0 %; Platelet Count 271 10^3/cmm (130-400); Red Blood Count 3.05 10^6/uL (4.1-5.3); Red Cell Distribution Width 14.7 % (12.1-15.1); White Blood Count 10.8 10^3/uL (4.0-10.0)
[2019-06-27 12:10] LABS: Anion Gap 14.4 (5-19); Blood Urea Nitrogen 34 mg/dL (6-20); Calcium 8.2 mg/dL (8.5-10.5); Carbon Dioxide 22 mmol/L (22-29); Chloride 98 mmol/L (98-107); Glomerular Filtration Rate 6.4 mL/min (90-130); Glucose 162 mg/dL (65-115); Osmolality Calculated 273 mOsm/kg (285-295); Potassium 3.4 mmol/L (3.5-5.1); Sodium 131 mmol/L (136-145)
[2019-06-27] MEDS: metoprolol tartrate 50 mg Tablet PO ×2 (12:24→18:08)
--- NOTE | 2019-06-27 12:59 | P.PN_ITS ---
Subjective Subjective: Interval history: Feels good. Gangrenous toe but no other issues. PD is going well, uncomplicated, with good flows and UF 549ml. Bp remains a little high and he remains a little tachycardic. No edema and no other vol Sx and no uremic Sx Vitals/I&O/Wt Last Vital Signs Temp 98.1 F 06/27/19 06:00 Pulse 88 06/27/19 10:00 Resp 0 L 06/27/19 10:00 BP 150/79 06/27/19 10:00 Pulse Ox 95 06/27/19 07:30 06/26/19 06/27/19 06/27/19 22:59 06:59 14:59 Intake Total 583.6 / 1583.6 2751.25 / 4334.85 1220 / 1220 Output Total 575 / 905 2650 / 3555 250 / 250 Balance 8.6 / 678.6 101.25 / 779.85 970 / 970 Physical Exam Narrative: EXAM NARRATIVE: The exam was performed with the aid of the bedside RN via telemed HENMT: COMMON NORMALS: normocephalic and atraumatic HEAD & SCALP: normocephalic and atraumatic Neck/C-Spine: COMMON NORMALS: no JVD Chest: COMMONS NORMALS: normal inspection of the chest Resp: COMMON NORMALS: normal respiratory effort and No retractions Cardio: COMMON NORMALS: no JVD and regular rate RATE: regular rate GI: COMMON NORMALS: Normal to inspection, nondistended, normoactive bowel sounds present : COMMON NORMALS: Yes normal external exam Data : 06/27/19 11:30 06/27/19 11:30 A&P Additional A&P Information 1. ESRD on PD - Will allow him to perform his own PD during his admission - 5 exchanges of 2.5L of yellow (1.5%) solution (4 at night and one day dwell) night dwell over 8hrs - dose meds for eGFR < 15 on PD - no changes to PD prescription today 2. Arterial stent to his left leg POD 1 - amputation of his left fourth toe planned pending surgery later today 3. Hypertension - Bp remains a little high; will give Metoprolol 50mg bid 4. Anemia - slightly low, monitor for now 5. Bone metabolism of ESRD - cont OP meds, no need to follow these levels in house Attestations Medical Necessity Statement*: eval for PD mgmt Coding Level of Care Code Acute Aviation Boatswain'S Mate for Fabian Pak
[2019-06-27] MEDS: vancomycin 500 MG in sodium chloride 0.9% (plus) 100 ML 200 MG IV (15:07)
--- NOTE | 2019-06-27 15:09 | PC.NURSE ---
pt washed with chloraprep for surgery, linens change. eye classes removed. Pre-op paperwork done.
[2019-06-27 15:27] LABS: Coronavirus Lab Test PTC NOT DETECTED
[2019-06-27] MEDS: lidocaine 1% INJ 20 mL INJECTION (15:40)
[2019-06-27] MEDS: neomycin-poly-bacitracin oint 28 gm 1 APPLIC TOPICAL (16:10)
--- NOTE | 2019-06-27 16:14 | PM.OP ---
Operative Report Date of procedure: June 27, 2019 Pre-op Diagnosis: Gangrene left fourth toe Post-op diagnosis: same Post-op Findings: Same Procedure Done: Left fourth toe amputation Specimens removed/disposition: Left fourth toe Surgeon: Tommy Leonardo Anesthesia: MAC and Local (8 cc 1% lidocaine infiltrated as a digital nerve block) Estimated blood loss (mL): 10 Complications: None Condition: stable Disposition: PACU Brief History: 54-year-old gentleman originally referred my service for ischemic left foot where I noted early gangrenous changes to his left fourth toe which is progressed fairly rapidly over the past week prior to presentation. Not surprising, I suspected he had aortoiliac disease and PVD. He was evaluated by Dr. Gr underwent angiography and subcu intervention with marked improved flow to his left foot. I have recommended amputation of his dry gangrenous left fourth toe. Details risk procedure carefully discussed. Proper consents were reviewed and signed. Procedure: Mr. Alexis was taken operating room theater underwent IV conscious sedation anesthesia monitoring after he was carefully positioned. After appropriate timeout to been completed, a digital block to the left fourth toe was performed utilizing 1% lidocaine. I then performed an elliptical incision with #15 scalpel blade around the base of the left fourth toe extending down to the metatarsal phalangeal joint. The toe was then removed in toto at this level. I then placed on traction flexor tendons and excised. The articular surface to the fourth metatarsal was debrided free utilizing a hand rongeur. Hemostasis was controlled with pressure. Cautery was not required after careful irrigation with large amounts of antibiotic solution, wound was initially reapproximated with interrupted #2 nylon suture in a mattress fashion. Closure was further completed by interrupted 3-0 nylon suture. Triple antibiotic ointment and sterile dressings were applied. He is awakened from IV conscious sedation with stable vital signs. He is transported to the postoperative care unit in stable condition and resting comfortably. Family was notified at the completion of the procedure.
--- NOTE | 2019-06-27 16:23 | SUR.PHASEI ---
1616 PATIENT TO PACU AT THIS TIME FROM OR. RR EVEN AND UNLABORED. NO DISTRESS. DENIES PAIN. DRESSING TO LEFT FOOT, CDI.
--- NOTE | 2019-06-27 17:19 | SUR.PHASEI ---
1708 PATIENT TO ICU AT THIS TIME. NO DISTRESS. DENIES PAIN. DRESSING TO LEFT FOOT, CDI. PATIENT TOLERATING ICE CHIPS.
--- NOTE | 2019-06-27 17:20 | SUR.PHASEI ---
1465 PATIENT RETURNING TO ICU DUE TO BEING ON A NITRO DRIP THIS NURSE ASKED PATIENT WHICH FAMILY MEMBER TO CONTACT AND UPDATE ABOUT SURGERY AND PATIENT DIDN'T WANT THIS NURSE TO CALL FAMILY.
[2019-06-27] MEDS: nitroglycerin 1 gm/inch oint Pkt 1 INCH TOPICAL (18:08)
--- NOTE | 2019-06-27 20:00 | PC.NURSE ---
Neurovascular check Left foot has bulky surgical dressing on clean, dry, intact. Unable to assess left pedal pulses due to bulky dressing. Pt denies abnormal sensations to left foot. Toes to left foot are warm with < 3 second cap refill. Pt able to wiggle toes. Will continue to monitor.
--- NOTE | 2019-06-27 20:45 | PC.NURSE ---
Peritoneal Dialysis Pt connected to own cycler and supplies for dialysis treatment. Dialysis in progress.
[2019-06-27] MEDS: hyDRALAzine 50 mg Tablet PO (21:05)
[2019-06-27] MEDS: HYDROcodone-acetaminophen 10-325 mg Tablet 1 TAB PO (21:05)
[2019-06-27] MEDS: atorvastatin 40 mg Tablet 20 MG PO (21:05)
--- NOTE | 2019-06-27 23:42 | PC.NURSE ---
Nitro Nitro drip titrated off at this time. Current BP 113/64. Held nitro bid ointment due to BP at this time. Will continue to monitor.
[2019-06-28] VITALS (11 sets, daily range): BP systolic 131–168; BP diastolic 68–87; PULSE 67–82; RESP 16–21; TEMP 36.8–36.9; O2SAT 89–100
[2019-06-28] MEDS: sodium chloride 0.9% 1,000 ML 100 ML IV (04:09)
[2019-06-28] MEDS: metoprolol tartrate 50 mg Tablet PO (08:10)
[2019-06-28] MEDS: cetirizine 10 mg Tablet PO (08:10)
[2019-06-28] MEDS: amlodipine 10 mg Tablet PO (08:10)
[2019-06-28] MEDS: hyDRALAzine 50 mg Tablet PO (08:10)
[2019-06-28] MEDS: levothyroxine 112 mcg Tablet PO (08:11)
--- NOTE | 2019-06-28 11:15 | PM.PN ---
Subjective Subjective: Interval history: Feels good. S/p toe amputation yesterday, no pain and he feels well. Mobilized with PT. PD is going well, uncomplicated, with good flows. No edema and no other vol Sx and no uremic Sx Vitals/I&O/Wt Last Vital Signs Temp 98.3 F 06/28/19 08:00 Pulse 73 06/28/19 10:00 Resp 18 06/28/19 10:00 BP 147/69 06/28/19 10:00 Pulse Ox 92 06/28/19 10:00 06/27/19 06/28/19 06/28/19 22:59 06:59 14:59 Intake Total 1556.650 / 2776.650 2.25 / 2778.900 Output Total 300 / 1150 Balance 1256.650 / 1626.650 2.25 / 1628.900 Physical Exam Narrative: EXAM NARRATIVE: The exam was performed with the aid of the bedside RN via telemed HENMT: COMMON NORMALS: normocephalic and atraumatic HEAD & SCALP: normocephalic and atraumatic Neck/C-Spine: COMMON NORMALS: no JVD Chest: COMMONS NORMALS: normal inspection of the chest Resp: COMMON NORMALS: normal respiratory effort and No retractions Cardio: COMMON NORMALS: no JVD and regular rate RATE: regular rate GI: COMMON NORMALS: Normal to inspection, nondistended, normoactive bowel sounds present : COMMON NORMALS: Yes normal external exam Data : 06/27/19 11:30 06/27/19 11:30 A&P Additional A&P Information 1. ESRD on PD - Will allow him to perform his own PD during his admission; to go home today and continue PD at home - 5 exchanges of 2.5L of yellow (1.5%) solution (4 at night and one day dwell) night dwell over 8hrs - dose meds for eGFR < 15 on PD - no changes to PD prescription today 2. Arterial stent to his left leg POD 2 and amputation of his left fourth toe POD 1 3. Hypertension - Bp/pulse look good 4. Anemia - slightly low, monitor for now 5. Bone metabolism of ESRD - cont OP meds, no need to follow these levels in house ok for DC today, d/w Dr Gr Attestations Medical Necessity Statement*: ESRD mgmt Coding Level of Care Code Acute Casualty Underwriter for Fabian Pak
--- NOTE | 2019-06-28 12:09 | P.DS_ITS ---
Discharge Providers Date of Admission: 06/26/19 11:30 Date of Discharge: June 28, 2019 Attending Provider at Admission: Greta Gr MD Attending Provider at Discharge: Greta Gr MD Primary Care Provider: ENRIQUE Ramirez Diagnoses at Discharge Discharge Diagnosis (1) Dyslipidemia: Status: Chronic (2) End stage renal failure on dialysis: Status: Chronic (3) Diet-controlled type 2 diabetes mellitus: Status: Acute (4) Critical lower limb ischemia: Status: Acute (5) Malignant hypertension: Status: Acute Reason for Visit Reason for Visit: Reason For Visit: COVID 19 SWAB Hospital Course Discharge Summary: 54-year-old past medical history significant for chronic k idney disease on peritoneal dialysis for gangrenous toe and critical limb ischemia was admitted to the hospital and underwent peripheral angiogram found to have subtotal occlusion of highly calcified mid to distal left SFA, high- grade stenosis of left tibioperoneal trunk, chronically occluded posterior tibial and subtotally occluded proximal anterior tibial with subtotally occluded peroneal with no flow below the knee and in the foot. CSI atherectomy using 2 oh bur in the SFA followed by 6.0 x 100 mm [id number] balloon was performed. Tibioperoneal trunk and left anterior tibial vessel was treated with CSI atherectomy using 1.25 bur followed by 3.0 x40 mm balloon. There was complete occlusion of arch of the foot. Using command wire and 2.0 x 250 mm balloon distal anterior tibial and arch was reconstructed. At the end of the case good flow through left SFA tibioperoneal with two-vessel runoff including anterior tibial and peroneal was noted. Distal anterior tibial and arch was also noted to be getting blood supply. Distal posterior tibial was also noted to be reconstituted. Good anterior and posterior tibial pulse were dopplered. His foot color increased pain got improved. Yesterday patient underwent amputation of the toe by Dr. Leonardo. He was followed up by nephrology for peritoneal dialysis. Today he is feeling much better. He has walked with physical therapy. He was suggested to to walk with crutches. Since we did the reconstruction of the chronically occluded arch I would like to keep him on apixaban for three months. Physical Exam Narrative: EXAM NARRATIVE: GENERAL: Patient is alert, awake and oriented x3. NECK: No jugular vein distension. HEENT: No cyanosis. No icterus. No pallor. HEART: Regular S1 and S2. No murmur, rub or gallop. LUNGS: Clear to auscultate bilaterally. ABDOMEN: Soft, nontender and nondistended. Positive bowel sounds. No guarding, rebound or tenderness. CENTRAL NERVOUS SYSTEM: Grossly nonfocal. EXTREMITIES: Lower extremities without edema bilaterally. Pulses dopplerable in the left extremities, both dorsalis pedis and posterior tibial. Discharge Data Data Completed and Pending: Completed Studies During Hospitalization Category Date Time Status XR chest 1V hernandez ble [id number] Urgent Exams 06/25/19 13:54 Completed Pending at discharge Category Date Time Status MANAGER SECURITY AND SAFETY request for service Routin e Exams 06/26/19 07:21 Taken Pathology: Surgic al [PTH] Routine Pth 06/27/19 15:52 Received Labs from last 24 hours 06/27/19 06/26/19 11:30 10:50 Sodium 131 L Potassium 3.4 L Chloride 98 Carbon Dioxide 22 Anion Gap 14.4 BUN 34 H Creatinine 8.8 H* GFR Calculation 6.4 L Glucose 162 H Calculated Osmolal ity 273 L Calcium 8.2 L Nasal/Oral COVID-1 9 PCR Not detected Vitals: Last Vital Signs Temp 98.3 F 06/28/19 08:00 Pulse 73 06/28/19 10:00 Resp 18 06/28/19 10:00 BP 147/69 06/28/19 10:00 Pulse Ox 92 06/28/19 10:00 Discharge Plan Discharge Patient Disposition: Home, Self-Care Condition: Stable Prescriptions: New amlodipine 10 mg Tablet 10 mg PO DAILY Qty: 30 RF: 3 metoprolol tartrate 50 mg Tablet 50 mg PO BID Qty: 60 RF: 4 hydralazine 50 mg Tablet 50 mg PO TID Qty: 90 RF: 3 Eliquis 5 mg Tablet 2.5 mg PO BID Qty: 60 RF: 3 Continued cefuroxime axetil 500 mg tablet 500 mg PO BID Qty: 20 RF: 0 hydrocodone-acetaminophen 10-325 mg tablet 1 tab PO Q4H PRN (Reason: Pain) RF: 0 nitroglycerin [Nitrostat] 0.4 mg tablet, sublingual 0.4 mg SUBLINGUAL Q5M PRN (Reason: Chest Pain) RF: 0 sildenafil [Viagra] 100 mg tablet 100 mg PO DAILY PRN (Reason: sexual activity) 30 Days Qty: 6 RF: 5 levothyroxine 112 mcg tablet 112 mcg PO DAILY Qty: 90 RF: 0 cetirizine [Zyrtec] 10 mg tablet 10 mg PO DAILY Qty: 30 RF: 0 cyclobenzaprine 10 mg Tablet 10 mg PO BID PRN (Reason: Muscle Pain) RF: 0 atorvastatin 20 mg tablet 20 mg PO BEDTIME RF: 0 zolpidem 10 mg tablet 10 mg PO BEDTIME RF: 0 Discharge Orders: Discharge Order (Routine); Ordered 06/28/19 Ordered By: Greta Gr Referrals: Freda Summers FNP-C [Primary Care Provider] - 4-7 days Cindy Crews FNP [Nurse Practitioner] - 1 week (You have a post proceedure check at [facility] with EDDA Arreola on July 04 at 10:15am) Yesica Medina MD [Physician] - (Please keep the appointment already scheduled at [facility] with Dr. Medina on July 31 at 2:15pm) Discharge Diet: Low Salt Discharge Activity: Increase activity as tolerated and Use walker/crutches as instructed Patient Instructions: Peripheral Vascular Angioplasty (DC) Activity Restrictions/Additional Instructions: Follow-up with cardiology in 7 to 10 days. Follow-up with wound care Dr. Leonardo as scheduled Discharge Attestations Time Spent in Discharge Care*: greater than 30 min Quality Metrics Clinical Quality Measures During this hospital stay, did patient experience: None Coding Level of Care Code New Pt Acute Warehouser for Chg Fwd Patient Type New History Expanded Problem Focused Exam Expanded Problem Focused Medical Decision Making Moderate Complexity Diagnoses Dyslipidemia E78.5 End stage renal failure on dialysis N18.6; Z99.2 Diet-controlled type 2 diabetes mellitus E11.9 Critical lower limb ischemia I99.8 Malignant hypertension I10
== END 2019-06-28 12:51 | disposition home or self-care (01) | DRG 252 ==
LOC: ER 15:44 → ICU 06-26 01:40
PROVIDERS: Family Medicine; Internal Medicine Nephrology; Physician Assistant; Thoracic Surgery (Cardiothoracic Vascular Surgery); Admitting Provider Internal Medicine Cardiovascular Disease; PCP Nurse Practitioner Family; Visit Provider Internal Medicine Cardiovascular Disease
PROC: 047L3ZZ Dilation of Left Femoral Artery, Percutaneous Approach (ICD-10-PCS; principal; 2019-06-26 07:00)
PROC: 047L3ZZ Dilation of Left Femoral Artery, Percutaneous Approach (ICD-10-PCS; 2019-06-26 07:00)
PROC: 0Y6W0Z0 Detachment at Left 4th Toe, Complete, Open Approach (ICD-10-PCS; principal; 2019-06-27 15:00)
DX: E11.52 Type 2 diabetes mellitus with diabetic peripheral angiopathy with gangrene (principal); N18.6 End stage renal disease; I12.0 Hypertensive chronic kidney disease with stage 5 chronic kidney disease or end stage renal disease; I70.262 Atherosclerosis of native arteries of extremities with gangrene, left leg; I77.1 Stricture of artery; E11.22 Type 2 diabetes mellitus with diabetic chronic kidney disease; E11.42 Type 2 diabetes mellitus with diabetic polyneuropathy; Z99.2 Dependence on renal dialysis; D63.1 Anemia in chronic kidney disease; E78.5 Hyperlipidemia, unspecified; Z20.828 Contact with and (suspected) exposure to other viral communicable diseases; E03.9 Hypothyroidism, unspecified; M43.10 Spondylolisthesis, site unspecified; F41.8 Other specified anxiety disorders; N52.1 Erectile dysfunction due to diseases classified elsewhere; E21.3 Hyperparathyroidism, unspecified; E55.9 Vitamin D deficiency, unspecified; I25.10 Atherosclerotic heart disease of native coronary artery without angina pectoris; Z95.5 Presence of coronary angioplasty implant and graft
CPT/HCPCS: 12345; 36415; 36416; 37225; 37233; 71045; 75625; 75716; 80048; 80053; 81001; 82962; 83735; 84100; 84132; 85025; 85610; 85730; 87635; 88305; 90935; 93005; 96372; 96375; 97161; 99284; C1724; C1725; C1769; C1887; C1894; G0378; J0360; J1644; J2001; J2250; J2270; J2704; J3010; J3480; J3490; J7030; J7050; L3260; Q3014; Q9967

== ENCOUNTER → 2019-06-29 10:49 | Outpatient (BNVA) | payer MEDICARE, MEDICAID, SELFPAY | PROVIDERS: PCP Nurse Practitioner Family; Visit Provider Nurse Practitioner | DX: E11.9 Type 2 diabetes mellitus without complications (principal); E78.5 Hyperlipidemia, unspecified; I10 Essential (primary) hypertension; I73.9 Peripheral vascular disease, unspecified; N18.6 End stage renal disease; Z99.2 Dependence on renal dialysis | CPT/HCPCS: 80053; 80061; 83036; 84443; 85025 ==

== ENCOUNTER 2019-07-03 09:43 | Outpatient (CLI) | payer MEDICARE, MEDICAID, SELFPAY | END 2019-07-03 09:44 | disposition home or self-care (01) | LOC: WOUND 09:45 | PROVIDERS: PCP Nurse Practitioner Family; Visit Provider Thoracic Surgery (Cardiothoracic Vascular Surgery) | DX: Z89.422 Acquired absence of other left toe(s) (principal) | CPT/HCPCS: G0463; L3260 ==

== ENCOUNTER → 2019-07-06 12:03 | Outpatient (BNVA) | payer MEDICARE, MEDICAID, SELFPAY | PROVIDERS: PCP Nurse Practitioner Family; Visit Provider Nurse Practitioner | DX: R35.0 Frequency of micturition (principal); R39.11 Hesitancy of micturition; R30.0 Dysuria | CPT/HCPCS: 80053; 81003 ==

== ENCOUNTER 2019-07-10 09:11 | Outpatient (CLI) | payer MEDICARE, MEDICAID, SELFPAY | END 2019-07-10 09:12 | disposition home or self-care (01) | LOC: WOUND 09:12 | PROVIDERS: PCP Nurse Practitioner Family; Visit Provider Thoracic Surgery (Cardiothoracic Vascular Surgery) | DX: Z89.422 Acquired absence of other left toe(s) | CPT/HCPCS: 99212; L3260 ==

== ENCOUNTER 2019-07-18 10:38 | Outpatient (CLI) | payer MEDICARE, MEDICAID, SELFPAY | END 2019-07-18 10:39 | disposition home or self-care (01) | LOC: WOUND 10:39 | PROVIDERS: PCP Nurse Practitioner Family; Visit Provider Thoracic Surgery (Cardiothoracic Vascular Surgery) | DX: E11.621 Type 2 diabetes mellitus with foot ulcer (principal); L97.522 Non-pressure chronic ulcer of other part of left foot with fat layer exposed | CPT/HCPCS: A6446; G0463 ==

== ENCOUNTER 2019-07-24 11:56 | Inpatient (IN) | payer MEDICARE, MEDICAID, SELFPAY ==
[2019-07-24] VITALS (10 sets, daily range): BP systolic 116–178; BP diastolic 60–148; PULSE 100–123; RESP 17–22; TEMP 36.4–36.7; O2SAT 95–100; BMI 38.4
--- NOTE | 2019-07-24 12:09 | CT_ITS ---
WS: [id number] CT CHEST, ABDOMEN AND PELVIS WITHOUT CONTRAST. HISTORY: fall, pain TECHNIQUE: Contiguous 5 mm axial imaging performed through the chest, abdomen and pelvis without IV c ontrast, oral contrast has known been provided. Coronal and sagittal reformats chest. Coronal and sag ittal reformats through the abdomen and pelvis. All CT scans at [facility] use at least o ne of these dose optimization techniques: automated exposure control; mA and/or kV adjustment per pat ient size (includes targeted exams where dose is matched to clinical indication); or iterative recons truction. CONTRAST: None DLP: 1796.6 mGy.cm COMPARISON: 02/06/2019 and 09/09/[address]: No pulmonary mass or nodule. There is some very mild interstitial thickening at the RIGHT l mya base and in the superior posterior segment of the LEFT lower lobe. No pneumothorax. Mild atherosc lerosis of the thoracic aorta. Benign calcified LEFT hilar lymph nodes. Normal size pulmonary artery. No pericardial or pleural effusions. No hernia. Moderate bilateral gynecomastia. Abdomen CT: Unenhanced imaging of the visceral organs are negative for acute process. Liver and splee n are normal. There is a very small amount of fluid adjacent to the RIGHT lobe of the liver which was present on the prior study may be related to dialysis and renal failure. Soft tissue mass again note d associated with the RIGHT kidney measures 4.1 x 3.3 cm. As indicated on the prior study suspicious for renal carcinoma. Heavy calcification in aorta and mesenteric arteries. No ascites, adenopathy or free fluid. Mild soft tissue anasarca. No GI tract obstruction. Peritoneal dialysis catheter is cold in the RIGHT lower quadrant. Pelvic CT: Around the coiled peritoneal dialysis catheter is a small amount of fluid. Inguinal canals are patent bilaterally. No osteoblastic or osteolytic bone disease. No acute fractures. Benign bone island RIGHT ilium CT/CT chest abd pel wo con IMPRESSION: 1. No acute chest, abdominal or pelvic abnormalities. 2. Peritoneal dialysis catheter. 3. Small amount of free fluid in the abdomen and pelvis related to the dialysi s. 4. Significant atherosclerosis in the aorta and mesenteric arteries. 5. Gynecomastia. 6. Again noted is mass associated with the RIGHT kidney measuring 4.1 x 3.3 cm . This mass has been previously described.
--- NOTE | 2019-07-24 12:09 | CT_ITS ---
WS: [id number] CT THORACIC SPINE HISTORY: fall, pain TECHNIQUE: Contiguous 2.5 mm axial images are reviewed to thoracic spine. Images are reformatted in s agittal and coronal planes. All CT scans at [facility] use at least one of these dose opt imization techniques: automated exposure control; mA and/or kV adjustment per patient size (includes targeted exams where dose is matched to clinical indication); or iterative reconstruction. DLP: 1949.22 mGy.cm COMPARISON: None available. Very slight LEFT convex curvature of the thoracic spine Mild increase in kyphosis. Very mild anterior wedging of T8, T9 and T10. No acute fractures. Pedicles and transverse processes are intact. No acute disc herniations or significant central or foraminal s tenosis. LEFT paracentral disc protrusion at T8-9. Mild facet joint arthritis at T9-10, T10-11. Parav ertebral soft tissues are negative for acute process. CT/CT thoracic spin wo con* [id number] IMPRESSION: No thoracic spine fracture. Mild spondylitic changes. Small LEFT paracentral disc protrusion at T8-9.
--- NOTE | 2019-07-24 12:09 | CT_ITS ---
WS: [id number] CT LUMBAR SPINE, noncontrast. HISTORY: fall, pain TECHNIQUE: Contiguous 2.5 mm axial imaging are performed. Sagittal and coronal reformats are submitte d and reviewed. All CT scans at [facility] use at least one of these dose optimization te chniques: automated exposure control; mA and/or kV adjustment per patient size (includes targeted exa ms where dose is matched to clinical indication); or iterative reconstruction. IV contrast: None DLP: 1921.44 mGy.cm COMPARISON: None available. Normal lumbar alignment. Mild disc space narrowing and endplate osteophytes at all levels. No transve rse process fractures. Visualized sacrum is normal. Mild diffuse disc bulging at L4-5 with mild centr al and bilateral foraminal stenosis. Asymmetric disc bulging and osteophytosis at L5-S1 with mild encroachment upon the ventral thecal sac . Mild central and bilateral foraminal narrowing. Extensive atherosclerosis noted in aorta and mesenteric arteries. CT/CT lumbar spine wo con* [id number] IMPRESSION: 1. No acute lumbar spine fracture. 2. Mild multilevel spondylosis and degenerative disc disease.
--- NOTE | 2019-07-24 12:11 | W.ED.SYNCOPE ---
HPI - Syncope General: Chief Complaint: Syncope Stated Complaint: GENERAL WEAKNESS, SYNCOPE, DEHYDRATION Time Seen by Provider: 07/24/19 11:58 History of Present Illness: HPI narrative: This patient is a 54 year old male presenting with syncope. He reports that everytime he stands up he passes out - and that last night he fell several times. The last time he was on the floor for several hours because he couldn't get up or get to the phone. He has been having this problem for about a week. he has had vomiting and poor appetite for a week as well. Denies fever or chills. He has had some constipation for the past few days. He does peritoneal dialysis and denies any issues with that. No cloudy fluid - no recent changes. He does make urine and denies any changes or urinary symptoms. No abdominal pain, chest pain, cough or shortness of breath. he says that he is not on anything for high blood pressure at home. He recently had treatment for an arterial occlusion that included having a toe amputated - but he says that has healed up well. He injured his back in the falls last night and is having pain from his shoulders to his tail bone. He normally has lower back pain and takes hydrocodone for that - he hasn't taken any today. He has not had anything to eat or drink today. complaint: loss of consciousness and collapsed Onset (ago): week(s) (1) Prodromal symptoms: lightheaded Witnessed: No Context: standing up Injuries sustained associated with event: back Associated symptoms: Reports lightheadedness; Deny abdominal pain, chest pain, fever(s), headache(s) or nausea History: previous syncopal episode and other (peritoneal dialysis) Review of Systems General: Reports: 10 or more systems reviewed and unremarkable except in HPI and below Const: Reports: fatigue and malaise; Denies: fever(s) or chills Eyes: Denies: change in vision ENMT: Denies: odynophagia Card: Reports: lightheadedness, syncope and pre-syncope; Denies: chest pain or swelling of feet/ankles Resp: Denies: dyspnea, productive cough or non-productive cough GI: Reports: constipation; Denies: abdominal pain, nausea or vomiting : Denies: flank pain Musc: Reports: back pain and muscle weakness; Denies: neck pain Skin/Breast: Denies: rash Neuro: Denies: headache(s), numbness in extremities or weakness in extremities Oscar/Lymph: Denies: easy bruising or easy bleeding PFSH ED PFSH: Medical History (Updated 07/24/19 @ 20:11 by Malena Bacon MD) Acquired hypothyroidism Acquired spondylolisthesis Anxiety and depression CAD (coronary artery disease) Cardiac stent x1 Chronic hypertension Diet-controlled type 2 diabetes mellitus Has been diet controlled since significant weight loss Dyslipidemia End stage renal failure on dialysis Peritoneal dialysis Environmental and seasonal allergies Erectile dysfunction due to diseases classified elsewhere HPT (hyperparathyroidism) Malignant hypertension PAD (peripheral artery disease) With critical lower limb ischemia 06/2019 requiring intervention with CSI atherectomy of the SFA followed by [id number] balloon angioplasty, CSI atherectomy of the tibial peroneal trunk and left anterior tibial followed by balloon angioplasty, reconstruction of the arch of the foot which was completely occluded. Polyneuropathy Vitamin D deficiency Surgical History (Updated 07/24/19 @ 20:11 by Malena Bacon MD) Amputated toe of left foot due to gangrene 06/27/2019 History of heart artery stent History of repair of right rotator cuff History of toe surgery Left great toe debridement Peritoneal dialysis catheter in place Family History Brother Cancer Mother Cancer Father Heart disease Social History Smoking and tobacco status: former smoker Second hand smoke exposure: No Smoking risk assessment/counseling performed?: No Alcohol intake: unknown Desire information about alcohol rehabilitation?: No Counseling given: No Desire information about substance/drug rehabilitation?: No Counseling given: No Caregiver/support person: No Lives independently: Yes Housing: House Marital status: Legally Highest education level completed: Some College, No Degree service: No Current occupational status: disabled Pets and animals: Yes History of recent travel: No Current gender identity: Male Physical Exam Const: COMMON NORMALS: no acute distress, patient oriented x3, no limitations and alert GENERAL APPEARANCE: cooperative, comfortable, lethargic and ill appearing ORIENTATION/CONSCIOUSNESS: Yes lethargic HENMT: HEAD & SCALP: normal to inspection FACE & SINUS: normal facial exam Eye: GENERAL EYE: appearance normal, both eyes and all related structures Neck/C-Spine: COMMON NORMALS: supple, no meningeal signs and no JVD Chest: COMMONS NORMALS: normal inspection of the chest Resp: COMMON NORMALS: normal respiratory effort, No use of accessory muscles and clear to auscultation bilaterally AUSCULTATION: clear to auscultation bilaterally Cardio: COMMON NORMALS: no JVD, regular rate, regular rhythm and No murmurs present (Cardio) RATE: regular rate RHYTHM: regular rhythm GI: COMMON NORMALS: Normal to inspection, nondistended, normoactive bowel sounds present, Soft to palpation and non-tender INSPECTION: Yes normal to inspection (PD catheter in the LLQ) AUSCULTATION: Yes normoactive bowel sounds PALPATION: Yes Soft to palpation Back/Pelvis: COMMON NORMALS: thoracic and lumbar spine normal to inspection Extremity: COMMON NORMALS: normal to inspection Neuro: COMMON NORMALS: patient oriented x3, moves all extremities, no focal motor deficits and no sensory deficits noted SENSORIUM/ORIENTATION: Yes alert and Yes lethargic MENINGEAL SIGNS: Yes no meningeal signs Psych: COMMON NORMALS: mental status grossly normal, cooperative and normal affect Skin: COMMON NORMALS: no rashes or lesions noted and turgor normal GENERAL SKIN EXAM: no rashes or lesions noted and turgor normal Course Vital Signs: Vital signs: Vital Signs Temperature 98.1 F 07/24/19 20:00 Pulse Rate 111 H 07/24/19 20:00 Respiratory Rate 20 H 07/24/19 20:00 Blood Pressure 172/112 07/24/19 16:15 Pulse Oximetry 100 07/24/19 20:00 MDM - Syncope MDM Narrative: Medical decision making narrative: Patient on peritoneal dialysis presenting with multiple syncopal episodes. He is very orthostatic. He has an elevated white blood cell count. Electrolytes are consistent with his history of dialysis. His abdomen is quite benign and although there obviously has to be consideration of spontaneous bacterial peritonitis clinically it does not really fit the picture. He will be admitted for further evaluation of his syncopal episodes and close monitoring. Lab Data: Labs: Lab Results 07/24/19 07/24/19 07/24/19 Range/Units 12:27 12:27 12:27 WBC 26.6 H (4.0-10.0) 10^3/ uL RBC 4.61 (4.1-5.3) 10^6/u L Hgb 13.7 (11.7-16.6) g/dL Hct 41.9 L (42.0-52.0) % MCV 90.9 (80-94) fL MCH 29.7 (28.0-34.0) pg MCHC 32.7 (30.0-36.0) g/dL RDW 13.4 (12.1-15.1) % Plt Count 480 H (130-400) 10^3/c mm MPV 8.7 (7.4-10.4) fL Neut % (Auto) 91.4 % Lymph % (Auto) 3.6 % [place] % (Auto) 3.5 % Eos % (Auto) 0.0 % Baso % (Auto) 0.2 % Neut # (Auto) 24.3 H (1.8-7.7) 10^3/u L Lymph # (Auto) 1.0 (0.8-4.8) 10^3/u L [place] # (Auto) 0.9 (0.2-0.9) 10^3/u L Eos # (Auto) 0.0 (0.0-0.8) 10^3/u L Baso # (Auto) 0.1 (0.0-0.1) 10^3/u L Nucleated RBC % (a uto) 0 % Nucleated RBCs # 0.0 /100WBC Sodium 133 L (136-145) mmol/L Potassium 3.6 (3.5-5.1) mmol/L Chloride 90 L (98-107) mmol/L Carbon Dioxide 22 (22-29) mmol/L Anion Gap 24.6 H (5-19) BUN 51 H (6-20) mg/dL Creatinine 11.3 H* (0.7-1.2) mg/dL GFR Calculation 4.8 L (90-130) mL/min Glucose 256 H (65-115) mg/dL Calculated Osmolal ity 283 L (285-295) mOsm/k g Lactate 2.0 (0.5-2.2) mmol/L Calcium 10.2 (8.5-10.5) mg/dL Total Bilirubin 0.3 (0.15-1.2) mg/dL AST 11 (0-40) U/L ALT 9 (0-41) U/L Alkaline Phosphata se 127 (40-130) IU/L Troponin T Baselin e (0-15) ng/L Total Protein 7.5 (6.6-8.7) g/dL Albumin 3.6 (3.5-5.2) g/dL Globulin 3.9 (1.3-4.6) g/dL Lipase 19 (13-60) U/L Procalcitonin 0.84 H (0-0.5) ng/mL TSH 1.10 (0.27-4.20) uIU/ mL Free T4 1.71 (0.82-1.77) ng/d L Blood Type Rho(D) Type Antibody Screen 07/24/19 07/24/19 Range/Units 12:27 12:27 WBC (4.0-10.0) 10^3/ uL RBC (4.1-5.3) 10^6/u L Hgb (11.7-16.6) g/dL Hct (42.0-52.0) % MCV (80-94) fL MCH (28.0-34.0) pg MCHC (30.0-36.0) g/dL RDW (12.1-15.1) % Plt Count (130-400) 10^3/c mm MPV (7.4-10.4) fL Neut % (Auto) % Lymph % (Auto) % [place] % (Auto) % Eos % (Auto) % Baso % (Auto) % Neut # (Auto) (1.8-7.7) 10^3/u L Lymph # (Auto) (0.8-4.8) 10^3/u L [place] # (Auto) (0.2-0.9) 10^3/u L Eos # (Auto) (0.0-0.8) 10^3/u L Baso # (Auto) (0.0-0.1) 10^3/u L Nucleated RBC % (a uto) % Nucleated RBCs # /100WBC Sodium (136-145) mmol/L Potassium (3.5-5.1) mmol/L Chloride (98-107) mmol/L Carbon Dioxide (22-29) mmol/L Anion Gap (5-19) BUN (6-20) mg/dL Creatinine (0.7-1.2) mg/dL GFR Calculation (90-130) mL/min Glucose (65-115) mg/dL Calculated Osmolal ity (285-295) mOsm/k g Lactate (0.5-2.2) mmol/L Calcium (8.5-10.5) mg/dL Total Bilirubin (0.15-1.2) mg/dL AST (0-40) U/L ALT (0-41) U/L Alkaline Phosphata se (40-130) IU/L Troponin T Baselin e 241 H* (0-15) ng/L Total Protein (6.6-8.7) g/dL Albumin (3.5-5.2) g/dL Globulin (1.3-4.6) g/dL Lipase (13-60) U/L Procalcitonin (0-0.5) ng/mL TSH (0.27-4.20) uIU/ mL Free T4 (0.82-1.77) ng/d L Blood Type B Positive Rho(D) Type Positive Antibody Screen Negative EKG Data^: EKG 1: EKG interpretation date: 07/24/19 EKG interpretation time: 12:31 Interpretation: Sinus tachycardia with first-degree AV block. Rate of 101. IA interval is 222 ms. QRS duration is 110 ms. QTc is 412 ms. Pulmonary strain pattern Discharge Plan Discharge Patient Disposition: Placed in Observation Admit Provider: Malena Bacon Clinical Impression: Orthostatic hypotension, Peritoneal dialysis status Syncope Qualifiers: Syncope type: unspecified Qualified Code(s): R55 - Syncope and collapse Condition: Stable Referrals: Freda Summers FNP-C [Primary Care Provider] - Discharge Date/Time: 07/24/19 16:00 Coding Level of Care Code ED Streetsweeper Operator for g Fwd Exam Comprehensive
[2019-07-24] MEDS: morphine 4 mg/mL SDV 1 mL IVP (12:34)
[2019-07-24] MEDS: ondansetron 2 mg/ML SDV 2 mL 4 MG IVP (12:34)
[2019-07-24 12:35] LABS: Basophils # 0.1 10^3/uL (0.0-0.1); Basophils % 0.2 %; Hematocrit 41.9 % (42.0-52.0); Hemoglobin 13.7 g/dL (11.7-16.6); Lymphocytes % 3.6 %; Mean Corpuscular HGB Conc 32.7 g/dL (30.0-36.0); Mean Corpuscular Hemoglobin 29.7 pg (28.0-34.0); Mean Corpuscular Volume 90.9 fL (80-94); Mean Platelet Volume 8.7 fL (7.4-10.4); Monocytes # 0.9 10^3/uL (0.2-0.9); Monocytes % 3.5 %; Neutrophils # 24.3 10^3/uL (1.8-7.7); Neutrophils % 91.4 %; Nucleated Red Blood Cells % 0 %; Platelet Count 480 10^3/cmm (130-400); Red Blood Count 4.61 10^6/uL (4.1-5.3); Red Cell Distribution Width 13.4 % (12.1-15.1); White Blood Count 26.6 10^3/uL (4.0-10.0)
[2019-07-24 12:58] LABS: Alanine Aminotransferase 9 U/L (0-41); Albumin Level 3.6 g/dL (3.5-5.2); Alkaline Phosphatase 127 IU/L (40-130); Anion Gap 24.6 (5-19); Aspartate Amino Transferase 11 U/L (0-40); Blood Urea Nitrogen 51 mg/dL (6-20); Calcium 10.2 mg/dL (8.5-10.5); Carbon Dioxide 22 mmol/L (22-29); Chloride 90 mmol/L (98-107); Free T4 Free Thyroxine 1.71 ng/dL (0.82-1.77); Globulin 3.9 g/dL (1.3-4.6); Glomerular Filtration Rate 4.8 mL/min (90-130); Glucose 256 mg/dL (65-115); Lipase 19 U/L (13-60); Osmolality Calculated 283 mOsm/kg (285-295); Potassium 3.6 mmol/L (3.5-5.1); Sodium 133 mmol/L (136-145); Total Bilirubin 0.3 mg/dL (0.15-1.2); Total Protein 7.5 g/dL (6.6-8.7)
[2019-07-24 12:59] LABS: Troponin(5th) Baseline 241 ng/L (0-15)
[2019-07-24 13:27] LABS: Procalcitonin 0.84 ng/mL (0-0.5)
--- NOTE | 2019-07-24 14:10 | ECG_ITS ---
Measurements Intervals [place] Rate: 101 P: 26 TN: 222 QRS: -37 QRSD: 110 T: 90 QT: 354 QTc: 459 SINUS TACHYCARDIA WITH FIRST DEGREE AV BLOCK PATTERN CONSISTENT WITH PULMONARY DISEASE INFERIOR MYOCARDIAL INFARCTION , PROBABLY OLD [40+ ms Q WAVE AND/OR ST/T ABNORMALITY IN II/aVF] MODERATE T-WAVE ABNORMALITY, CONSIDER LATERAL ISCHEMIA [-0.1+ mV T WAVE IN I/aVL/V5/V6] Compared to ECG 06/25/2019 21:23:58 T-wave abnormality now present Possible ischemia now present Sinus rhythm no longer present Myocardial infarct finding still present Electronically Signed On 07-24-2019 19:37:16 CDT by Jessica Torrez M.D. [email or web address]
[2019-07-24 15:07] LABS: Troponin 5 2HR 233.6 ng/L (0-15); Troponin 5 2HR Delta -7.4 ABS# (0-10)
--- NOTE | 2019-07-24 15:52 | PC.NURSE ---
WOUND CARE NURSE CALLED [facility] FOR WOUND CARE INSTRUCTIONS BEING PROVIDED AT HOME. PER ANA AT [facility] PATIENT HAS BEEN HAVING WOUND CLEANED WITH SALINE DAILY WITH WET TO DRY DRESSING CHANGE WITH [employer] FOR PADDING.
--- NOTE | 2019-07-24 17:39 | P.HP_ITS ---
Providers/Chief Complaint Admitting Physician: Malena Bacon MD Primary Care Provider: Freda Summers, EDDA-C Chief Complaint: GENERAL WEAKNESS, SYNCOPE, DEHYDRATION History of Present Illness Christiano Kearns is a 54 year old male who presented to the emergency room with chief complaint of passing out. For the last week or so, patient states that nearly every time he gets up he feels a little bit dizzy. He has had multiple episodes in which he has blacked out . Last 24 hours this is led to him falling down. Complains of some back pain but images done in the emergency room did not show anything acute in this regard. Patient has chronic kidney disease on peritoneal dialysis. A little less than a month ago, he had critical limb ischemia in the left lower extremity leading to need for arteriogram and and intervention to return blood flow followed by amputation of the left fourth digit. Patient has been followed in wound care clinic since then. When he was here for that visit, he was started on hydralazine, metoprolol and lisinopril for malignant hypertension. Blood pressures were high during that clinical stay but he reports when he got home blood pressures were lower. Medicines have since been held after follow-up appointments with primary care clinic as well as cardiology nurse practitioner.. He does have a history of coronary artery disease with previous stents a couple of years ago. Denies any chest pain, shortness of breath or other symptoms associated with the syncopal spells besides the dizziness and blacking out. No reported fevers. He has been going to wound care. He states that the wound looks about the same as it did last week when he was seen there. It has black eschar all on the base where the removal of the toe was done. Some of this eschar extends up onto the fifth digit as well as the third digit. Patient second digit on the left foot has some eschar formation/scabbing at the distal tip of the toe. That toe was also red. Patient says it looks similar without any worsening. He occasionally has some discomfort in the foot but not much in the way of pain. No pain up the leg. In the emergency room he was noted to be orthostatic and had a white count of 26,000. Despite the orthostasis though his blood pressures were initially in the 170s. They have stayed elevated as long as he is not trying to stand up. In addition to all of this, patient does report constipation. He had complained of some decreased urine output when he followed up with primary care clinic but states that that has resolved. He does still make urine though not a large amount. PD catheter site has been clean. No nausea or vomiting. Denies any respiratory symptoms. Being admitted for further evaluation and treatment. Review of records indicates that he was prescribed Levaquin by Ruel Reyes as well as some Proscar July 05. Not clear if he ever picked that up. On July 17 he was prescribed Bactrim double strength daily after PD by Dr. Leonardo but I also do not know that he has picked that up yet. 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 He does have home health. Review of Systems Const: Denies: fever(s), chills or change in appetite Eyes: Denies: change in vision ENMT: Denies: throat pain, dry mouth or nasal congestion Card: Denies: chest pain, palpitations or edema Resp: Denies: dyspnea, productive cough or non-productive cough GI: Reports: abdominal pain (Which he relates to being constipated), constipation and bloating; Denies: nausea, vomiting or diarrhea : Reports: other (Still makes urine but some decreased output lately) Skin/Breast: Reports: other (Surgical site looks about the same per him); Denies: rash or pruritus Neuro: Reports: numbness in extremities, frequent falls, dizziness and vertigo; Denies: headache(s), weakness in extremities or Slurred speech present Psych: Denies: anxiety or depression Oscar/Lymph: Denies: easy bruising or easy bleeding Medications/Allergies Home Medications Medication Instructions Recorded Confirmed Last Taken Type hydrocodone 10 mg-acetaminophen 1 tab PO Q4H PRN tab 03/01/19 07/24/19 07/23/19 History 325 mg tablet nitroglycerin 0.4 mg sublingual 0.4 mg SUBLINGUAL Q5M PRN tab 03/01/19 07/24/19 Unknown History tablet sildenafil 100 mg tablet 100 mg PO DAILY PRN 30 Days #6 tab 03/01/19 07/24/19 Unknown Rx levothyroxine 112 mcg tablet 112 mcg PO DAILY #90 tab 06/04/19 07/24/19 07/23/19 Rx atorvastatin 20 mg PO BEDTIME 06/25/19 07/24/19 07/23/19 History cyclobenzaprine 10 mg PO BID PRN 06/25/19 07/24/19 Unknown History zolpidem 10 mg PO BEDTIME 06/25/19 07/24/19 07/23/19 History apixaban [Eliquis] 2.5 mg PO BID #60 tab 06/28/19 07/24/19 07/23/19 Rx levofloxacin 250 mg tablet 250 mg PO Q24H #3 tab 07/06/19 07/24/19 07/23/19 Rx cetirizine 10 mg tablet 10 mg PO DAILY #30 tab 07/24/19 Unknown Rx Allergies Allergy/AdvReac Type Severity Reaction Status Date / Time nitrofurantoin Allergy unknown Verified 07/24/19 12:01 clavulanic acid AdvReac Severe Nausea Verified 07/24/19 12:01 [From Augmentin] amoxicillin [From Augmentin] AdvReac Intermediate Nausea Verified 07/24/19 12:01 PFSH Acute PFSH: Medical History (Updated 07/24/19 @ 20:11 by Malena Bacon MD) Acquired hypothyroidism Acquired spondylolisthesis Anxiety and depression CAD (coronary artery disease) Cardiac stent x1 Chronic hypertension Diet-controlled type 2 diabetes mellitus Has been diet controlled since significant weight loss Dyslipidemia End stage renal failure on dialysis Peritoneal dialysis Environmental and seasonal allergies Erectile dysfunction due to diseases classified elsewhere HPTH (hyperparathyroidism) Malignant hypertension PAD (peripheral artery disease) With critical lower limb ischemia 06/2019 requiring intervention with CSI atherectomy of the SFA followed by [id number] balloon angioplasty, CSI atherectomy of the tibial peroneal trunk and left anterior tibial followed by balloon angioplasty, reconstruction of the arch of the foot which was completely occluded. Polyneuropathy Vitamin D deficiency Surgical History (Updated 07/24/19 @ 20:11 by Malena Bacon MD) Amputated toe of left foot due to gangrene 06/27/2019 History of heart artery stent History of repair of right rotator cuff History of toe surgery Left great toe debridement Peritoneal dialysis catheter in place Family History Brother Cancer Mother Cancer Father Heart disease Social History Smoking and tobacco status: former smoker Second hand smoke exposure: No Smoking risk assessment/counseling performed?: No Alcohol intake: unknown Desire information about alcohol rehabilitation?: No Counseling given: No Desire information about substance/drug rehabilitation?: No Counseling given: No Caregiver/support person: No Lives independently: Yes Housing: House Marital status: Legally Highest education level completed: Some College, No Degree service: No Current occupational status: disabled Pets and animals: Yes History of recent travel: No Current gender identity: Male Vitals/I&O/Wt Last Vital Signs Temp 97.5 F L 07/24/19 16:15 Pulse 102 H 07/24/19 16:15 Resp 22 H 07/24/19 16:15 BP 172/112 07/24/19 16:15 Pulse Ox 97 07/24/19 16:15 Weight last 48 hrs Weight 117.934 kg Physical Exam Const: OTHER: Alert, oriented x3, cooperative HENMT: OTHER: Normocephalic atraumatic, moist mucus membranes Eye: OTHER: Pupils equally round and reactive to light Neck/C-Spine: OTHER: Supple Resp: OTHER: Clear to auscultation bilaterally, no rales, rhonchi or wheezes noted, no accessory muscle use noted Cardio: OTHER: Regular rate and rhythm, no murmurs gallops or rubs. GI: OTHER: Abdomen soft, mild generalized tenderness, nondistended with positive bowel sounds. The catheter site intact with no erythema or oozing noted : OTHER: Deferred Extremity: NARRATIVE EXTREMITY EXAM: Lower extremities without any pitting edema. Distal left foot with eschar formation in the bed of previous surgical site extending from inner surface of fifth digit to inner surface of third di git. At the tip of the second digit there is some scabbing. Some odor is noted but it is a small amount. I can see to what I suspect is the fat layer of tissue centrally. (Description by Dr. Leonardo on July 17 described large amount of necrotic tissue 67 to 100% within the wound bed with some adherent slough). No red streaks up the foot, capillary refill is around 2 seconds at great toe and third toe. Second toe on the left foot with dusky discoloration but also with capillary refill around 2 seconds. Neuro: OTHER: Face symmetric, speech clear, moves all extremities Psych: OTHER: Normal affect Skin: OTHER: Other than findings of left first digit, a few scratches on the arms but no other sores noted Data : 07/24/19 12:27 07/24/19 12:27 Micro: Microbiology 07/24/19 12:30 Blood Culture - Preliminary Blood SPECIMEN COLLECTED 07/24/19 12:27 Blood Culture - Preliminary Blood SPECIMEN COLLECTED A&P Assessment and plan (1) Syncope: with recurrent falls last 24 hrs Status: Acute Qualifiers: Syncope type: unspecified Qualified Code(s): R55 - Syncope and collapse (2) Orthostatic hypotension: noted in ED and likely cause of some of his symptoms over the last 24 to 48 hours. I am not sure if this is due to medications he has been prescribed, effect of contrast and other acute issues on renal function, worsening blood sugars, infection noted, other type of vascular event or arrhythmia. Leaning towards infection plus or minus medications in particular pain medicines and Ambien. Patient denies taking any Viagra or nitroglycerin recently. Status: Acute (3) Amputated toe of left foot: Done in mid June after intervention for PAD Status: Acute (4) PAD (peripheral artery disease): Status post CSI atherectomy of the SFA followed by [id number] balloon angioplasty, CSI atherectomy of the tibial peroneal trunk and left anterior tibial followed by balloon angioplasty, reconstruction of the arch of the foot w hich was completely occluded. Done 06/26/2019. Status: Chronic (5) End stage renal failure on dialysis: Peritoneal dialysis patient, with increased bun/creatinine since required intervention for critical limb ischemia. Potassium okay. Decreased urine output. Status: Chronic (6) Peritoneal dialysis catheter in place: Status: Chronic (7) Malignant hypertension: Present a few weeks ago requiring initiation of multiple antihypertensives Status: Chronic (8) CAD (coronary artery disease): Prior stent, denies any symptoms recently beyond syncope Status: Chronic (9) Diet-controlled type 2 diabetes mellitus: With recent hyperglycemia, which is probably contributing to wound healing challenges in addition to other comorbidities. Status: Chronic (10) Dyslipidemia: Chronically on a statin Status: Chronic (11) Acquired hypothyroidism: Chronically on levothyroxine Status: Chronic Additional A&P Information Observation admission for now Telemetry monitoring Serial cardiac enzymes Nephrology consultation for peritoneal dialysis Vancomycin and zosyn, renally dosed Check sed rate and CRP and repeat CBC in the morning Reevaluate after above to determine further plans of care. May need to consider additional imaging for the foot but description is very similar to what he describes with less odor after debridement last week. I do not know that he has been on any antibiotics for certain 1 lately. Sliding scale insulin currently, discussed with patient who is agreeable, with wound healing may need to consider initiation of an oral medication or even insulin therapy at home Do not be too aggressive with antihypertensives overnight >> he had been on amlodipine 10 mg a day, hydralazine 50 mg 3 times a day metoprolol 50 mg p.o. twice daily at time of last discharge after procedures. Continue Eliquis which is a home medication Continue home Levaquin Continue home statin Decrease hydrocodone to 5 mg Hold [place] currently Discussed with patient not getting out of bed without assistance Supportive care otherwise Plans discussed with patient and he was given an opportunity to ask questions Full code Attestations Medical Necessity Statement*: Currently anticipated stay less than 2 midnights in a patient with recurrent syncopal episodes overnight that sounds like he is having some orthostasis. At rest he is feeling okay. He is on several medicines that might contribute and also has wound in his right lower extremity from recent surgery. It looks similar to what it looks like last week in clinic but cannot rule out developing infection as a etiology. Plans are as indicated. 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
[2019-07-24 19:09] LABS: Troponin 5 6HR 217.2 ng/L (0-15); Troponin 5 6HR Delta -23.8 ng/L (0-12)
[2019-07-24] MEDS: heparin 5,000 unit/mL INJ 1 mL 5000 UNIT SUBCUT (19:10)
[2019-07-24] MEDS: apixaban 5 mg Tablet 2.5 MG PO (19:10)
[2019-07-24] MEDS: sennosides-docusate Tablet 1 TAB PO (19:11)
--- NOTE | 2019-07-24 20:09 | P.CONIM_ITS ---
Providers/Reason For Consult Consulting Physican/Specialty*: yamileth barrientos md/ telenephrology Reason for Consult*: ESRD care Attending Physician: Malena Bacon MD Primary Care Provider: ENRIQUE Ramirez History of Present Illness History of Present Illness Christiano Kearns is a 54 year old male w/ CAD, PVD, HTN, DM type 2, hypothyroidism, ESRD on CCPD at home. Pt was admitted s/p syncope. He was recently admitted in June 2019 for LLE critical limb ischemia. He had an angiogram and angioplasty. and he is s/p a left 4th toe amputaion. Pts BP has been difficult to control. he was placed on hydralazine, lisinopril, and metoprolol. He was also recently given levaquin, proscar, and bactrin for Q of UTI/ BPH, and for his foot wound that seems to be extending. He was admitted today for orthostatsis- w/ sBP starting in 170's and dropping while standing. Review of Systems General: Reports: 10 or more systems reviewed and unremarkable except in HPI and below Narrative: dizzy/ ligh-headed when standing, poor appetite. denies fevers/ chills. he is tired, feels dehydrated- has been using 2.5% glucose dialysate at home, + constipated, leg pain and eschar/ blackness Meds/Allergies Home Medications and Allergies Home Medications Medication Instructions Recorded Confirmed Last Taken Type hydrocodone 10 mg-acetaminophen 1 tab PO Q4H PRN tab 03/01/19 07/24/19 07/23/19 History 325 mg tablet nitroglycerin 0.4 mg sublingual 0.4 mg SUBLINGUAL Q5M PRN tab 03/01/19 07/24/19 Unknown History tablet sildenafil 100 mg tablet 100 mg PO DAILY PRN 30 Days #6 tab 03/01/19 07/24/19 Unknown Rx levothyroxine 112 mcg tablet 112 mcg PO DAILY #90 tab 06/04/19 07/24/19 07/23/19 Rx atorvastatin 20 mg PO BEDTIME 06/25/19 07/24/19 07/23/19 History cyclobenzaprine 10 mg PO BID PRN 06/25/19 07/24/19 Unknown History zolpidem 10 mg PO BEDTIME 06/25/19 07/24/19 07/23/19 History apixaban [Eliquis] 2.5 mg PO BID #60 tab 06/28/19 07/24/19 07/23/19 Rx levofloxacin 250 mg tablet 250 mg PO Q24H #3 tab 07/06/19 07/24/19 07/23/19 Rx cetirizine 10 mg tablet 10 mg PO DAILY #30 tab 07/24/19 Unknown Rx Allergies Allergy/AdvReac Type Severity Reaction Status Date / Time nitrofurantoin Allergy unknown Verified 07/24/19 12:01 clavulanic acid AdvReac Severe Nausea Verified 07/24/19 12:01 [From Augmentin] amoxicillin [From Augmentin] AdvReac Intermediate Nausea Verified 07/24/19 12:01 Current Medications Current Medications Generic Name Dose Route Start Last Admin Trade Name Freq PRN Reason Stop Dose Admin Apixaban 2.5 mg 07/24/19 18:00 07/24/19 19:10 Eliquis PO 2.5 mg BID THEA Administration Heparin Sodium (Beef Lung) 5,000 unit 07/24/19 18:00 07/24/19 19:10 Heparin SUBCUT 5,000 unit Q12H THEA Administration Senna/Docusate Sodium 1 tab 07/24/19 18:20 07/24/19 19:11 Senna-S PO 1 tab BID THEA Administration PFSH Acute PFSH: Medical History (Updated 07/24/19 @ 20:11 by Malena Bacon MD) Acquired hypothyroidism Acquired spondylolisthesis Anxiety and depression CAD (coronary artery disease) Cardiac stent x1 Chronic hypertension Diet-controlled type 2 diabetes mellitus Has been diet controlled since significant weight loss Dyslipidemia End stage renal failure on dialysis Peritoneal dialysis Environmental and seasonal allergies Erectile dysfunction due to diseases classified elsewhere HPTH (hyperparathyroidism) Malignant hypertension PAD (peripheral artery disease) With critical lower limb ischemia 06/2019 requiring intervention with CSI atherectomy of the SFA followed by [id number] balloon angioplasty, CSI atherectomy of the tibial peroneal trunk and left anterior tibial followed by balloon angioplasty, reconstruction of the arch of the foot which was completely occluded. Polyneuropathy Vitamin D deficiency Surgical History (Updated 07/24/19 @ 20:11 by Malena Bacon MD) Amputated toe of left foot due to gangrene 06/27/2019 History of heart artery stent History of repair of right rotator cuff History of toe surgery Left great toe debridement Peritoneal dialysis catheter in place Family History Brother Cancer Mother Cancer Father Heart disease Social History Smoking and tobacco status: former smoker Second hand smoke exposure: No Smoking risk assessment/counseling performed?: No Alcohol intake: unknown Desire information about alcohol rehabilitation?: No Counseling given: No Desire information about substance/drug rehabilitation?: No Counseling given: No Caregiver/support person: No Lives independently: Yes Housing: House Marital status: Legally Highest education level completed: Some College, No Degree service: No Current occupational status: disabled Pets and animals: Yes History of recent travel: No Current gender identity: Male Vitals/I&O/Wt Last Vital Signs Temp 97.5 F L 07/24/19 16:15 Pulse 102 H 07/24/19 16:15 Resp 22 H 07/24/19 16:15 BP 172/112 07/24/19 16:15 Pulse Ox 97 07/24/19 16:15 07/24/19 07/24/19 07/24/19 06:59 14:59 22:59 Intake Total 220 / 220 Balance 220 / 220 Weight last 48 hrs Weight 117.934 kg Physical Exam Narrative: EXAM NARRATIVE: NARD in bed vs noted heent- nc/at, eomi, anicteric neck- no jvp lungs clear heart reg, +VIKTORIYA abd soft, nt, nd, +BS, + PD catheter neuro- dec sensation in feet ext- no edema left foot bandaged Data Micro: Micro: Microbiology 07/24/19 12:30 Blood Culture - Pr eliminary Blood SPECIMEN [facility] 07/24/19 12:27 Blood Culture - Pr eliminary Blood SPECIMEN [facility] A&P Additional A&P Information 1. ESRD - pt normally on a cycler at home w/ a lsat fill. he did not bring in his cycler. we will do CAPD- using low glucose bags- 4 exchanges a day of 2 liter fills 2. orthostatic hypotension- check orthostaiss q shifts. rather keep supine BP high, so he does not continue jackelin faint -can use midodrine as needed -use BLANE stockings if okay w/ Dr. Gr who recently did leg intervention -stop proscar -may need ivf if bp drops -please get a cardiac echo, if he did not have one recently 3. leukocytosis- likely from leg- abx, consult podiatry/ vasc or cards- question if we need further procedures LLE periph vasc disease- on zosyn and vanco -- monitor vanco level w/ PD 4. hgb 13- high for him. he is likely dry 5. monitor k, mag -ca is high- check pth- hold any vit d analouge for now 6. Hypothyroidism- tsh down from 6.6 on 06/29/19 to 1.1 on 07/24/19- consider dec levothyroxine dose 7. DM control to help w/ wound healing 8. repeat ua and cx a given dec uop and Q BPH 9. constipation- will rx w/ lactulose- as constipation will effect his PD from working 10. renal mass- please ensure that he has urology f/u - it is 4 cm Consult Attestations Medical Necessity Statement: orthostatic, infection, PVD, renal mass Time Spent in Patient Care: Greater than 35 minutes Coding Level of Care Code Acute Inside Barrel Lathe Operator for Chg Fwd
[2019-07-24] MEDS: sodium chloride 0.9% 1,000 ML 75 ML IV (21:04)
[2019-07-24] MEDS: Dianeal low Ca w/1.5% dex 2,000 mL Bag 2000 ML INTRAPERIT (21:04)
[2019-07-24] MEDS: atorvastatin 40 mg Tablet 20 MG PO (21:05)
[2019-07-24] MEDS: amlodipine 5 mg Tablet 2.5 MG PO (21:05)
[2019-07-24] MEDS: bisacodyl 5 mg Tablet 20 MG PO (21:10)
[2019-07-24 22:16] LABS: Glucose Point of Care 223 mg/dL (70-110)
[2019-07-24] MEDS: piperacillin-tazobactam 2.25 GM in sodium chloride 0.9% (plus) 50 ML IV (22:16)
[2019-07-25] VITALS (8 sets, daily range): BP systolic 79–177; BP diastolic 59–108; PULSE 94–103; RESP 16–20; TEMP 36.7–36.9; O2SAT 95–99
[2019-07-25] MEDS: HYDROcodone-acetaminophen 5-325 mg Tablet 1 TAB PO (00:08)
[2019-07-25] MEDS: Dianeal low Ca w/1.5% dex 2,000 mL Bag 2000 ML INTRAPERIT ×4 (03:55→17:16)
[2019-07-25] MEDS: vancomycin 1,000 MG in sodium chloride 0.9% 250 ML 250 MG IV (03:58)
[2019-07-25 04:34] LABS: Apprearance, Body Fluid CLEAR (CLEAR); Color, Body Fluid COLORLESS (PALE YELLOW)
[2019-07-25 04:40] LABS: Body Fluid WBC 7 /uL; RBC, Body Fluid 0 10^3/uL (0-0)
[2019-07-25] MEDS: piperacillin-tazobactam 2.25 GM in sodium chloride 0.9% (plus) 50 ML IV ×3 (05:11→23:40)
--- NOTE | 2019-07-25 05:52 | PC.PHAR ---
Vancomycin is dosed at 1gm IVPB every 24 hours with a trough level before each dose to determine if adjustment is needed for this peritoneal dialysis patient.
[2019-07-25 06:09] LABS: Basophils # 0.1 10^3/uL (0.0-0.1); Basophils % 0.4 %; Eosinophils # 0.2 10^3/uL (0.0-0.8); Hematocrit 36.2 % (42.0-52.0); Lymphocytes # 2.1 10^3/uL (0.8-4.8); Lymphocytes % 9.6 %; Mean Corpuscular HGB Conc 33.1 g/dL (30.0-36.0); Mean Corpuscular Hemoglobin 30.5 pg (28.0-34.0); Mean Corpuscular Volume 92.1 fL (80-94); Mean Platelet Volume 8.7 fL (7.4-10.4); Monocytes # 1.1 10^3/uL (0.2-0.9); Monocytes % 4.8 %; Neutrophils # 18.3 10^3/uL (1.8-7.7); Neutrophils % 83.4 %; Nucleated Red Blood Cells % 0 %; Platelet Count 397 10^3/cmm (130-400); Red Blood Count 3.93 10^6/uL (4.1-5.3); Red Cell Distribution Width 13.4 % (12.1-15.1); White Blood Count 21.9 10^3/uL (4.0-10.0)
[2019-07-25 06:21] LABS: Vancomycin Random 25.3 ug/mL (20.0-40.0)
[2019-07-25 06:22] LABS: Anion Gap 25.1 (5-19); Blood Urea Nitrogen 45 mg/dL (6-20); Calcium 9.9 mg/dL (8.5-10.5); Carbon Dioxide 22 mmol/L (22-29); Chloride 90 mmol/L (98-107); Glomerular Filtration Rate 4.9 mL/min (90-130); Glucose 134 mg/dL (65-115); Magnesium 2.1 mg/dL (1.7-2.3); Osmolality Calculated 278 mOsm/kg (285-295); Phosphorus 6.5 mg/dL (2.5-4.5); Potassium 3.1 mmol/L (3.5-5.1); Sodium 134 mmol/L (136-145)
[2019-07-25 06:23] LABS: C Reactive Protein 53.2 mg/L (0.0-4.9)
[2019-07-25 06:46] LABS: Calcium 8.9 mg/dL (8.5-10.5); Parathyroid Hormone 88.4 pg/mL (15-65)
[2019-07-25 06:51] LABS: Glucose Point of Care 140 mg/dL (70-110)
[2019-07-25 07:03] LABS: Erythrocyte Sedimentation Rate 95 mm/hr (0-10)
[2019-07-25] MEDS: lactulose oral liq 20 gm/30 mL UDC PO (08:22)
[2019-07-25] MEDS: sennosides-docusate Tablet 1 TAB PO (08:26)
[2019-07-25] MEDS: apixaban 5 mg Tablet 2.5 MG PO (08:26)
[2019-07-25] MEDS: levothyroxine 100 mcg Tablet PO (08:26)
--- NOTE | 2019-07-25 08:34 | P.PN_ITS ---
Subjective Subjective: Interval history: orthostatic, weak. no beltrán, foot pain. c/o constipation Medications: Reviewed: Yes Medication Review Details: Current Medications Acetaminophen (Tylenol) 650 mg PO Q6H PRN PRN Reason: Mild/Mod Pain Or Temp >/= 101 Apixaban (Eliquis) 2.5 mg PO BID THEA Last Admin: 07/25/19 08:26 Dose: 2.5 mg Documented by: Atorvastatin Calcium (Lipitor) 20 mg PO BEDTIME THEA Last Admin: 07/24/19 21:05 Dose: 20 mg Documented by: Bisacodyl (Dulcolax) 20 mg PO DAILY PRN PRN Reason: CONSTIPATION Last Admin: 07/24/19 21:10 Dose: 20 mg Documented by: Cyclobenzaprine HCl (Flexeril) 10 mg PO BID PRN PRN Reason: Muscle Pain Dextrose (D50w) 25 ml IVP ONCE PRN; Protocol PRN Reason: hypoglycemia protocol Dextrose (D50w) 50 ml IVP PRN PRN; Protocol PRN Reason: hypoglycemia protocol Glucagon (Glucagen) 1 mg IM ONCE PRN; Protocol PRN Reason: Adult Acute Hypoglycemia Prot. Hydralazine HCl (Apresoline) 10 mg IVP Q4H PRN PRN Reason: SBP > 185 or DBP > 100 Dextrose (D5w) 500 mls @ 100 mls/hr IV ONCE PRN; Protocol PRN Reason: Adult Acute Hypoglycemia Prot Piperacillin Sod/Tazobactam (Sod 2.25 gm/ Sodium Chloride) 50 mls @ 12.5 mls/hr IV Q8H THEA; Protocol Last Admin: 07/25/19 05:11 Dose: 12.5 mls/hr Documented by: Vancomycin HCl 1,000 mg/ (Sodium Chloride) 250 mls @ 250 mls/hr SOL2UTPH PROTOCOL [facility] Insulin Aspart (Novolog) 0 unit SUBCUT TIDWM [facility]; Protocol Last Admin: 07/25/19 07:39 Dose: Not Given Documented by: Insulin Aspart (Novolog) 0 unit SUBCUT BEDTIME [facility]; Protocol Last Admin: 07/24/19 22:16 Dose: 3 unit Documented by: Insulin Detemir (Levemir) 5 unit SUBCUT BEDTIME THEA Last Admin: 07/24/19 22:17 Dose: 5 unit Documented by: Lactulose (Constulose) 20 gm PO Q6H PRN PRN Reason: CONSTIPATION Last Admin: 07/25/19 08:22 Dose: 20 gm Documented by: Levothyroxine Sodium (Synthroid) 100 mcg PO DAILY [facility] Last Admin: 07/25/19 08:26 Dose: 100 mcg Documented by: Nitroglycerin (Nitrostat) 0.4 mg SUBLINGUAL Q5M PRN PRN Reason: Chest Pain Ondansetron HCl (Zofran) 4 mg IVP Q8H PRN PRN Reason: vomiting, or N/V if npo Peritoneal Dialysis Solution (Dianeal Low Ca W/1.5% Dex) 2,000 ml INTRAPERIT Q6H [facility] Last Admin: 07/25/19 03:55 Dose: 2,000 ml Documented by: Senna/Docusate Sodium (Senna-S) 1 tab PO BID [facility] Last Admin: 07/25/19 08:26 Dose: 1 tab Documented by: Vitals/I&O/Wt Last Vital Signs Temp 98.2 F 07/25/19 00:00 Pulse 94 07/25/19 07:56 Resp 18 07/25/19 07:56 BP 157/96 07/25/19 07:56 Pulse Ox 97 07/25/19 07:56 07/24/19 07/25/19 07/25/19 22:59 06:59 14:59 Intake Total 220 / 220 540 / 760 240 / 240 Output Total 0 / 0 Balance 220 / 220 540 / 760 240 / 240 Weight last 48 hrs Weight 117.934 kg Physical Exam Narrative: EXAM NARRATIVE: NARD in bed vs noted bP supine 165/101. sitting 104/72, stabding 79/59 heent- nc/at, eomi, anicteric neck- no jvp lungs clear heart reg, +VIKTORIYA abd soft, nt, nd, +BS, + PD catheter neuro- dec sensation in feet ext- no edema left foot bandaged by 4 th toe amp site, eschars Data : 07/25/19 05:50 07/25/19 05:50 Micro: Microbiology 07/25/19 03:50 Gram Stain - Final Peritoneal Fluid 07/24/19 12:30 Blood Culture - Preliminary Blood SPECIMEN COLLECTED 07/24/19 12:27 Blood Culture - Preliminary Blood SPECIMEN COLLECTED A&P Additional A&P Information 1. ESRD - pt normally on a cycler at home w/ a last fill. he did not bring in his cycler. we will do CAPD- using low glucose bags- 4 exchanges a day of 2 liter fills 2. orthostatic hypotension- check orthostatic VS q shifts. rather keep supine BP high, so he does not continue to faint -can use midodrine and monitor -d/c norvasc -use BLANE stockings if okay w/ Dr. Gr who recently did leg intervention -stop proscar -had ivf last night -please get a cardiac echo, if he did not have one recently 3. leukocytosis- likely from leg- abx, consult podiatry/ vasc or cards- question if we need further procedures LLE periph vasc disease- on zosyn and vanco -- monitor vanco level w/ PD -hopefully BP will improve as infection improves 4. hgb 12- good for ESRD 5. monitor k, mag -replace k -ca is improving- await pth- hold any vit d analouge for now 6. Hypothyroidism- tsh down from 6.6 on 06/29/19 to 1.1 on 07/24/19- consider dec levothyroxine dose 7. DM control to help w/ wound healing 8. repeat ua and cx a given dec uop and Q BPH 9. constipation- will rx w/ lactulose- as constipation will effect his PD from working 10. renal mass- please ensure that he has urology f/u - it is 4 cm, can we call urology while he is here. may need further imaging or intervention Attestations Medical Necessity Statement*: gangrenous toe. 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
[2019-07-25] MEDS: acetaminophen 325 mg Tablet 650 MG PO ×2 (09:24→23:39)
[2019-07-25] MEDS: midodrine 5 mg TABLET PO ×3 (09:25→21:53)
[2019-07-25] MEDS: ondansetron 2 mg/ML SDV 2 mL 4 MG IVP (09:59)
--- NOTE | 2019-07-25 10:00 | PC.CHAP ---
Pastoral Care Encounter/Spiritual Assessment Type of Contact [] Declined marketing manager visit [] Patient/Family/Request visit [] Outpatient visit [] Follow-up visit [] Physician referral [] Code/Alert [x] Routine visit [] Staff referral [] Actively dying [] Patient sleeping [] Family support [] [] Out of room [] Palliative care [] [] Receiving care in room [] Pre-surgical visit [] Trauma [] Long length of stay [] ICU visit [] Other: Relational/Emotional Strength [] Patient feels connected with others/family/visitors/staff [] Distress [] Loneliness/isolation [] Abandonment Spirituality of Patient [] Person of Charity [] Attends [employer] of their Charity [] Believes in Prayer [] Reads Bible or Moravian materials [] There are Spiritual issues to be addressed Sales Service Executive Interventions [x] Prayer [] Active listening [] Non-anxious presence [] Spiritual/emotional support [] Crisis/trauma care [] Spiritual counseling [] Bereavement support [] Provided bereavement packet [] Provided Bible/devotional materials [] Provided toy/stuffed animal, coloring book to patient or family member [] Provided Communion [] Anointing/[place] [] Salvation [x] Completed spiritual assessment [] Other: Impact on Illness or Injury [] Angry [] Fearful [] Anxious [] Often cries [] Exhaustion [] Unable to work [] Unable to attend congregation [] Unable to walk/stand [] Unable to read [] Unable to drive [] Unable to eat/drink [] Unable to sleep [] Unable to be with family [] Patient intubated [] Other: Summary Patient suffering with bowel issues. Time spent with patient
[2019-07-25 11:36] LABS: Glucose Point of Care 193 mg/dL (70-110)
--- NOTE | 2019-07-25 13:07 | XR_ITS ---
WS: [id number] Left foot, 3 views, 07/25/2019 Clinical Data: wound 4th digit base, eval for gas, bone changes, Comparison: Left foot, 06/14/2019. Findings: The left fourth toe has been removed. There is erosion at the head of the fourth metatarsal. There is a small amount of air just distal to the head of the left fourth metatarsal. The remainder the foot demonstrates no fractures or dislocations. There are vascular calcifications t hroughout the foot which are consistent with diabetes. No fractures or dislocations are seen. XR/XR foot LT min 3V* [id number] Impression: 1. Minimal erosion and small amount of air at the head of the left fourth metat arsal which could indicate inflammatory change. 2. Absent left fourth toe.
--- NOTE | 2019-07-25 13:08 | PM.PN ---
Subjective Subjective: Interval history: Patient is still feeling very tired. When he gets up and is up for more than a minute or 2, he still gets dizzy but he is okay getting up to the bedside commode. No significant increase in pain. Did report some nausea but has had a good bowel movement and feels better presently. Abdomen not hurting as it had been. Reviewed with him the renal mass that was noted on CT imaging this hospital stay. He has been told about that in the past. He says he followed up with his cassandra architect, Dr. Diaz, and had an evaluation that did not show anything at a later time and therefore he is never had any additional work-up. I spoke with Dr. Berg, who reviewed the imaging study. He recommended outpatient follow-up with him to evaluate further and this will be arranged upon discharge. Patient is agreeable with this plan. Vitals/I&O/Wt Last Vital Signs Temp 98.1 F 07/25/19 11:01 Pulse 94 07/25/19 07:56 Resp 18 07/25/19 11:01 BP 131/90 07/25/19 11:01 Pulse Ox 97 07/25/19 07:56 07/24/19 07/25/19 07/25/19 22:59 06:59 14:59 Intake Total 220 / 220 540 / 760 2410 / 2410 Output Total 0 / 0 2200 / 2200 Balance 220 / 220 540 / 760 210 / 210 Weight last 48 hrs Weight 117.934 kg Physical Exam Const: OTHER: Alert, oriented x3, cooperative HENMT: OTHER: Mucous membranes moist Eye: OTHER: Extraocular movements intact Neck/C-Spine: OTHER: Supple Resp: OTHER: Clear to auscultation bilaterally, no rales, rhonchi or wheezes noted Cardio: OTHER: Regular rate and rhythm, no murmurs gallops or rubs. GI: OTHER: Abdomen soft, not as tender today. Nondistended with positive bowel sounds. PD catheter site intact. : OTHER: Deferred Extremity: NARRATIVE EXTREMITY EXAM: No significant change to the space where fourth digit used to be on the left foot. Dusky appearance to the second digit is no change. No red streaks noted. Neuro: OTHER: Face symmetric, speech clear, moves all extremities Psych: OTHER: Normal affect Skin: OTHER: Other than findings left foot, and previously mentioned scratches, no new findings Data : 07/25/19 05:50 07/25/19 05:50 Micro: Microbiology 07/24/19 12:30 Blood Culture - Preliminary Blood NEGATIVE TO DATE 07/24/19 12:27 Blood Culture - Preliminary Blood NEGATIVE TO DATE 07/25/19 03:50 Gram Stain - Final Peritoneal Fluid A&P Assessment and plan (1) Syncope: With multiple falls prior to admission. [place] secondary to orthostasis and/or medications. Status: Acute Qualifiers: Syncope type: unspecified Qualified Code(s): R55 - Syncope and collapse (2) Orthostatic hypotension: Suspect volume or infection related at this point in time. Several medicines are still held such as Ambien and hydrocodone is decreased. Status: Acute (3) Amputated toe of left foot: Done in mid June after intervention for PAD. Had some dehiscence along the suture wound after amputation. He has been following in wound care clinic and been treated with antibiotics. Would benefit from surgical debridement or at least evaluation. Status: Acute (4) PAD (peripheral artery disease): Status post CSI atherectomy of the SFA followed by [id number] balloon angioplasty, CSI atherectomy of the tibial peroneal trunk and left anterior tibial followed by balloon angioplasty, reconstruction of the arch of the foot which was completely occluded. Done 06/26/2019. Status: Chronic (5) End stage renal failure on dialysis: Peritoneal dialysis patient, nephrology following Status: Chronic (6) Peritoneal dialysis catheter in place: Status: Chronic (7) Malignant hypertension: Present a few weeks ago requiring initiation of multiple antihypertensives Status: Chronic (8) CAD (coronary artery disease): Prior stent, denies any symptoms recently beyond syncope. Has elevated troponin with value that is trending downward. I do not have comparative recent values but suspect has a chronic elevation. EKG with similar changes to previous from June with barrier and lateral changes Status: Chronic (9) Diet-controlled type 2 diabetes mellitus: With recent hyperglycemia, which is probably contributing to wound healing challenges in addition to other comorbidities. Hemoglobin A1c was checked and is at 7.0. With vascular issues and wound healing needs, will need to initiate treatment. Status: Chronic (10) Dyslipidemia: Chronically on a statin Status: Chronic (11) Acquired hypothyroidism: Chronically on levothyroxine, with drop in TSH noted over the last month. Suspect related to sick euthyroid with what is been going on. He has been on the same dose of levothyroxine for quite some time according to review of external records. Status: Chronic (12) Renal mass: Has been present going back to at least 2017. Had followed with his cassandra architect but has not had further formal evaluation due to inconsistencies on a repeat imaging study by patient's report. Will need outpatient work-up and this has been discussed with Dr. Berg. Status: Chronic (13) Anticoagulated: With apixaban, started mid-June with plan for 3 months of treatment secondary to reconstruction of the chronically occluded vascular arch of the left foot. Presently held due to planned debridement of foot wound. Status: Chronic Additional A&P Information Change to inpatient status Off of antihypertensives Midodrine has been added Status post IV fluids overnight Tolerating higher blood pressures presently to decrease risk of syncope. He had been on amlodipine 10 mg a day, hydralazine 50 mg 3 times a day and metoprolol 50 mg p.o. twice daily at time of discharge in June Continues to have occasional sinus tachycardia but some improvement with sleep. Off of home beta-blockade presently. Echocardiogram has been ordered as well as repeat EKG I have discussed the case with Dr. Leonardo who has graciously agreed to see him in consultation Eliquis is held for anticipated procedure Continue renally dosed antibiotics Follow-up pending cultures and any cultures collected during debridement Currently has urine, blood and peritoneal fluid cultures pending Sed rate and CRP have been collected for future follow-up, ESR 95, CRP 53.2 Plain films of the foot have been ordered Nephrology following for peritoneal dialysis Discussed the case with Dr. Berg, urology, and will arrange for outpatient follow-up with him to address renal mass Continue current insulin therapy including low-dose long-acting at bedtime. Will need to probably continue this at discharge until this wound heals with consideration alternatively for oral medications. Discussed this with the patient, including the reasons behind this. He is currently agreeable. Continue home statin Decrease home hydrocodone to 5 mg due to orthostasis Hold Ambien currently due to orthostasis Again discussed with patient not getting out of bed without assistance, even to bedside commode Supportive care otherwise Full code Attestations Medical Necessity Statement*: Stay will now crossed 2 midnights and patient is being changed to inpatient status to allow for continued IV antibiotics and debridement of the foot along with monitoring of blood pressures and recurrent orthostasis. With comorbid conditions at high risk of readmission if discharged. Coding Level of Care Code Acute Android Ios Developer for Chg Fwd Diagnoses Syncope R55 Syncope type: unspecified Orthostatic hypotension I95.1 Amputated toe of left foot S98.132A PAD (peripheral artery disease) I73.9 End stage renal failure on dialysis N18.6; Z99.2 Peritoneal dialysis catheter in place Z99.2 Malignant hypertension I10 CAD (coronary artery disease) I25.10 Diet-controlled type 2 diabetes mellitus E11.9 Dyslipidemia E78.5 Acquired hypothyroidism E03.9 Renal mass N28.89 Anticoagulated Z79.01
--- NOTE | 2019-07-25 13:14 | P.CONIM_ITS ---
Providers/Reason For Consult Consulting Physican/Specialty*: Dr. Leonardo wound care service Reason for Consult*: Wound left foot Attending Physician: Malena Bacon MD Primary Care Provider: ENRIQUE Ramirez History of Present Illness History of Present Illness Christiano Kearns is a 54 year old male who is been followed in wound care services for known peripheral vascular disease and a frankly gangrenous left fourth toe. He subsequent evaluations and intervention including atherectomy to the left SFA and tibioperoneal trunk by Dr. Gr in June. Following that subsequently he underwent left fourth toe amputation by myself. This was performed on June 26. He has subsequently been followed in the wound care services weekly. I last saw him on July 17. He was actually scheduled for a visit to wound care today. At that time he was noted to have some superficial dehiscence along the suture line of the left fourth toe amputation site. There is also some blackening of the periwound skin which was concerning for ongoing ischemia. He had been walking on his foot quite a bit as he had a tire blow out while traveling to the wound care services last week during that visit he was noted to be tachycardic though regular he stated he was a bit anxious due to the difficulties he had with the car trouble at morning. I was concerned of ongoing further breakdown of his wound and placed him on Bactrim DS. He had been previously placed on another antibiotic by his primary care provider. He presented to the emergency department yesterday with complaining of continued concerns for near syncope. He had generalized fatigue and lightheadedness. He was found to have a 26,000 white count. He is also had some recent medication adjustments. He also is on peritoneal dialysis for longstanding renal failure. I have conferred with my colleague Dr. Bacon by phone. Mr. Kearns is currently on Zosyn and vancomycin. His white count has decreased down to 21,000. I have requested a plain film x-ray study of the left foot and Dr. Bacon is helping us have this obtained. I do feel that, probably he should undergo surgical debridement more formally in the operating room theater for what may be unrecognized infection. I have personally reviewed the foot x-ray ordered earlier today. There is no yosvany obvious [place] x-ray findings for osteomyelitis. He does have calcification of his digital arteries consistent with severe peripheral vascular disease and diabetes mellitus. Review of Systems Narrative: Complaining of fatigue and generalized lightheadedness for the past several days. Denied subjective fever. Const: Reports: fatigue; Denies: fever(s), chills, change in appetite, change in weight or night sweats Eyes: Denies: change in vision or blurry vision ENMT: Denies: odynophagia or hoarseness Card: Denies: chest pain, palpitations, irregular heart rhythm or edema Resp: Denies: dyspnea or productive cough GI: Denies: abdominal pain, nausea, vomiting, dysphagia, heartburn or change in bowel habits Musc: Reports: extremity pain (He does have pain in the left foot at the prior amputation site as well as the left second toe.) and extremity swelling Skin/Breast: Denies: rash Neuro: Denies: headache(s), numbness in extremities, weakness in extremities or sensory changes Psych: Reports: anxiety; Denies: depression or change in appetite Endo: Denies: polyuria, polydipsia or cold intolerance Oscar/Lymph: Denies: easy bruising, easy bleeding, petechiae or enlarged lymph nodes Meds/Allergies Home Medications and Allergies Home Medications Medication Instructions Recorded Confirmed Last Taken Type hydrocodone 10 mg-acetaminophen 1 tab PO Q4H PRN tab 03/01/19 07/24/19 07/23/19 History 325 mg tablet nitroglycerin 0.4 mg sublingual 0.4 mg SUBLINGUAL Q5M PRN tab 03/01/19 07/24/19 Unknown History tablet sildenafil 100 mg tablet 100 mg PO DAILY PRN 30 Days #6 tab 03/01/19 07/24/19 Unknown Rx levothyroxine 112 mcg tablet 112 mcg PO DAILY #90 tab 06/04/19 07/24/19 07/23/19 Rx atorvastatin 20 mg PO BEDTIME 06/25/19 07/24/19 07/23/19 History cyclobenzaprine 10 mg PO BID PRN 06/25/19 07/24/19 Unknown History zolpidem 10 mg PO BEDTIME 06/25/19 07/24/19 07/23/19 History apixaban [Eliquis] 2.5 mg PO BID #60 tab 06/28/19 07/24/19 07/23/19 Rx levofloxacin 250 mg tablet 250 mg PO Q24H #3 tab 07/06/19 07/24/19 07/23/19 Rx cetirizine 10 mg tablet 10 mg PO DAILY #30 tab 07/24/19 Unknown Rx Allergies Allergy/AdvReac Type Severity Reaction Status Date / Time nitrofurantoin Allergy unknown Verified 07/24/19 12:01 clavulanic acid AdvReac Severe Nausea Verified 07/24/19 12:01 [From Augmentin] amoxicillin [From Augmentin] AdvReac Intermediate Nausea Verified 07/24/19 12:01 Current Medications Current Medications Generic Name Dose Route Start Last Admin Trade Name Freq PRN Reason Stop Dose Admin Acetaminophen 650 mg 07/24/19 17:45 07/25/19 09:24 Tylenol PO 650 mg Q6H PRN Administration Mild/Mod Pain Or Temp >/= 101 Atorvastatin Calcium 20 mg 07/24/19 21:00 07/24/19 21:05 Lipitor PO 20 mg BEDTIME THEA Administration Bisacodyl 20 mg 07/24/19 18:21 07/24/19 21:10 Dulcolax PO 20 mg DAILY PRN Administration CONSTIPATION Piperacillin Sod/Tazobactam 50 mls @ 12.5 mls/hr 07/24/19 22:00 07/25/19 09:11 Sod 2.25 gm/ Sodium Chloride IV Infused Q8H THEA Infusion Protocol As Directed Insulin Aspart 0 unit 07/25/19 08:00 07/25/19 12:38 Novolog SUBCUT 4 unit TIDWM THEA Administration Protocol Insulin Aspart 0 unit 07/24/19 21:00 07/24/19 22:16 Novolog SUBCUT 3 unit BEDTIME THEA Administration Protocol Insulin Detemir 5 unit 07/24/19 21:00 07/24/19 22:17 Levemir SUBCUT 5 unit BEDTIME THEA Administration Lactulose 20 gm 07/24/19 20:35 07/25/19 08:22 Constulose PO 20 gm Q6H PRN Administration CONSTIPATION Levothyroxine Sodium 100 mcg 07/25/19 09:00 07/25/19 08:26 Synthroid PO 100 mcg DAILY THEA Administration Midodrine 5 mg 07/25/19 09:00 07/25/19 09:25 Proamatine PO 5 mg TID THEA Administration Ondansetron HCl 4 mg 07/24/19 17:45 07/25/19 09:59 Zofran IVP 4 mg Q8H PRN Administration vomiting, or N/V if npo Peritoneal Dialysis Solution 2,000 ml 07/25/19 09:00 07/25/19 09:59 Dianeal Low Ca W/1.5% Dex INTRAPERIT 2,000 ml QID THEA Administration Senna/Docusate Sodium 1 tab 07/24/19 18:20 07/25/19 08:26 Senna-S PO 1 tab BID THEA Administration PFSH Acute PFSH: Medical History Acquired hypothyroidism Acquired spondylolisthesis Anxiety and depression CAD (coronary artery disease) Cardiac stent x1 Chronic hypertension Diet-controlled type 2 diabetes mellitus Has been diet controlled since significant weight loss Dyslipidemia End stage renal failure on dialysis Peritoneal dialysis Environmental and seasonal allergies Erectile dysfunction due to diseases classified elsewhere HPTH (hyperparathyroidism) Malignant hypertension PAD (peripheral artery disease) With critical lower limb ischemia 06/2019 requiring intervention with CSI atherectomy of the SFA followed by [id number] balloon angioplasty, CSI atherectomy of the tibial peroneal trunk and left anterior tibial followed by balloon angioplasty, reconstruction of the arch of the foot which was completely occluded. Polyneuropathy Vitamin D deficiency Surgical History Amputated toe of left foot due to gangrene 06/27/2019 History of heart artery stent History of repair of right rotator cuff History of toe surgery Left great toe debridement Peritoneal dialysis catheter in place Family History Brother Cancer Mother Cancer Father Heart disease Social History Smoking and tobacco status: former smoker Second hand smoke exposure: No Smoking risk assessment/counseling performed?: No Alcohol intake: unknown Desire information about alcohol rehabilitation?: No Counseling given: No Desire information about substance/drug rehabilitation?: No Counseling given: No Caregiver/support person: No Lives independently: Yes Housing: House Marital status: Legally Highest education level completed: Some College, No Degree service: No Current occupational status: disabled Pets and animals: Yes History of recent travel: No Current gender identity: Male Vitals/I&O/Wt Last Vital Signs Temp 98.1 F 06/10/20 11:01 Pulse 94 07/25/19 07:56 Resp 18 07/25/19 11:01 BP 131/90 07/25/19 11:01 Pulse Ox 97 07/25/19 07:56 07/24/19 07/25/19 07/25/19 22:59 06:59 14:59 Intake Total 220 / 220 540 / 760 2410 / 2410 Output Total 0 / 0 2200 / 2200 Balance 220 / 220 540 / 760 210 / 210 Weight last 48 hrs Weight 260 lb Physical Exam Const: COMMON NORMALS: patient oriented x3 Neck/C-Spine: COMMON NORMALS: no JVD Resp: COMMON NORMALS: normal respiratory effort, No use of accessory muscles and clear to auscultation bilaterally EFFORT & INSPECTION: Yes able to speak in complete sentences AUSCULTATION: clear to auscultation bilaterally Cardio: COMMON NORMALS: no JVD, regular rate and regular rhythm PALPATION: normal PMI RATE: regular rate RHYTHM: regular rhythm Extremity: NARRATIVE EXTREMITY EXAM: There is breakdown at the amputation site of his left fourth toe with devitalized tissue at the base of the wound which will require further debridement. He also has some necrosis of the periwound skin, which is concerning for ongoing ischemia to the foot. This will also require some debridement though this will need to be done judiciously to avoid compromise to digital arteries to the adjacent toes. We will perform a wet-to-dry dressing change this evening with plans for more formal surgical debridement tomorrow afternoon. Neuro: COMMON NORMALS: patient oriented x3 and no focal motor deficits; negative for no sensory deficits noted (Decreased sensation in the feet bilaterally.) Psych: COMMON NORMALS: Normal thought process present, cooperative, normal affect, speech normal and activity/motor behavior normal SPEECH: Yes normal speech THOUGHT PROCESS: Normal thought process present MEMORY/COGNITION: Yes memory grossly intact JUDGEMENT: Good judgement present (Psych) Data Micro: Micro: Microbiology 07/24/19 12:30 Blood Culture - Pr eliminary Blood NEGATIVE TO HOMAR E 07/24/19 12:27 Blood Culture - Pr eliminary Blood NEGATIVE TO HOMAR E 07/25/19 03:50 Gram Stain - Final Peritoneal Fluid A&P Assessment and plan (1) Amputated toe of left foot: Almost 1 month status post amputation of the left fourth toe due to gangrenous changes and severe peripheral vascular disease. Status post intervention with atherectomy of the left SFA and tibial peroneal trunk by Dr. Gr on June 23. He had further dehiscence of his amputation site and presented with a white count of 26,000. He has numerous comorbidities for wound complications including history of CHF, coronary artery disease, hypertension, peripheral arterial disease, renal failure currently on peritoneal dialysis, and diabetes mellitus. Plan: I have recommended formal exploration and debridement as indicated in the operating room theater for tomorrow afternoon. Left foot x-ray does not reveal obvious evidence for osteomyelitis. I greatly appreciate the expertise and oversight of our hospitalist colleagues and particularly Dr. Bacon. Status: Acute Consult Attestations Medical Necessity Statement: His symptoms fourth toe amputation site Time Spent in Patient Care: Greater than 35 minutes Coding Level of Care Code Acute Credit Charge Authorizer for [facility] Fwd Exam Detailed Diagnoses Amputated toe of left foot S98.132A
[2019-07-25 17:17] LABS: Glucose Point of Care 197 mg/dL (70-110)
--- NOTE | 2019-07-25 17:21 | ECG_ITS ---
Measurements Intervals [place] Rate: 104 P: 26 MT: 216 QRS: -17 QRSD: 109 T: 61 QT: 351 QTc: 463 SINUS TACHYCARDIA WITH FIRST DEGREE AV BLOCK INFERIOR MYOCARDIAL INFARCTION [40+ ms Q WAVE AND/OR ST/T ABNORMALITY IN II/aVF], PROBABLY OLD ANTEROSEPTAL MYOCARDIAL INFARCTION [40+ ms Q WAVE IN V1-V4], OF INDETERMINATE AGE Compared to ECG 07/24/2019 12:36:14 T-wave abnormality no longer present Possible ischemia no longer present Myocardial infarct finding still present Electronically Signed On 07-26-2019 21:07:43 CDT by Jessica Torrez M.D. [email or web address]
[2019-07-25 21:10] LABS: Glucose Point of Care 145 mg/dL (70-110)
[2019-07-25] MEDS: atorvastatin 40 mg Tablet 20 MG PO (21:54)
[2019-07-26] VITALS (14 sets, daily range): BP systolic 70–189; BP diastolic 44–113; PULSE 84–104; RESP 16–20; TEMP 36.4–37.1; O2SAT 98–100
[2019-07-26] MEDS: Dianeal low Ca w/1.5% dex 2,000 mL Bag 2000 ML INTRAPERIT ×4 (00:15→23:39)
[2019-07-26] MEDS: phenazopyridine 100 mg Tablet PO ×2 (02:07→10:12)
[2019-07-26 03:49] LABS: Basophils # 0.1 10^3/uL (0.0-0.1); Basophils % 0.5 %; Eosinophils # 0.1 10^3/uL (0.0-0.8); Eosinophils % 0.5 %; Hematocrit 36.2 % (42.0-52.0); Lymphocytes # 1.7 10^3/uL (0.8-4.8); Lymphocytes % 8.1 %; Mean Corpuscular HGB Conc 33.1 g/dL (30.0-36.0); Mean Corpuscular Hemoglobin 30.2 pg (28.0-34.0); Mean Platelet Volume 8.7 fL (7.4-10.4); Monocytes # 1.1 10^3/uL (0.2-0.9); Monocytes % 4.9 %; Neutrophils # 18.4 10^3/uL (1.8-7.7); Neutrophils % 85.2 %; Nucleated Red Blood Cells % 0 %; Platelet Count 369 10^3/cmm (130-400); Red Blood Count 3.98 10^6/uL (4.1-5.3); Red Cell Distribution Width 13.3 % (12.1-15.1); White Blood Count 21.5 10^3/uL (4.0-10.0)
[2019-07-26 04:12] LABS: Alanine Aminotransferase 8 U/L (0-41); Albumin Level 3.2 g/dL (3.5-5.2); Alkaline Phosphatase 113 IU/L (40-130); Anion Gap 21.9 (5-19); Aspartate Amino Transferase 12 U/L (0-40); Blood Urea Nitrogen 54 mg/dL (6-20); Calcium 9.2 mg/dL (8.5-10.5); Carbon Dioxide 23 mmol/L (22-29); Chloride 92 mmol/L (98-107); Globulin 3.1 g/dL (1.3-4.6); Glomerular Filtration Rate 5.1 mL/min (90-130); Glucose 145 mg/dL (65-115); Magnesium 2.1 mg/dL (1.7-2.3); Osmolality Calculated 279 mOsm/kg (285-295); Phosphorus 5.9 mg/dL (2.5-4.5); Sodium 134 mmol/L (136-145); Total Bilirubin 0.3 mg/dL (0.15-1.2); Total Protein 6.3 g/dL (6.6-8.7)
[2019-07-26 04:25] LABS: Potassium 2.9 mmol/L (3.5-5.1)
[2019-07-26] MEDS: potassium chloride ER 10 mEq Tablet 40 MEQ PO (05:40)
[2019-07-26] MEDS: piperacillin-tazobactam 2.25 GM in sodium chloride 0.9% (plus) 50 ML IV ×2 (05:40→18:34)
--- NOTE | 2019-07-26 06:20 | PM.PN ---
Subjective Subjective: Interval history: Ms. Kearns complains of substantial dysuria. Nurses report that bladder scan revealed less than 50 cc. His symptomatology however does appear to be consistent with a possible UTI and note from he has prior urinalysis in late June that he did have a substantial UTI at that time. He also complains of left foot pain. White count remains over 21,000. He is scheduled for debridement of his left foot this afternoon. Vitals/I&O/Wt Last Vital Signs Temp 98.3 F 07/26/19 04:00 Pulse 86 07/26/19 04:40 Resp 18 07/26/19 04:00 BP 170/78 07/26/19 04:40 Pulse Ox 98 07/26/19 04:00 07/25/19 07/25/19 07/26/19 14:59 22:59 06:59 Intake Total 4530 / 4530 50 / 4580 50 / 4630 Output Total 3500 / 3500 250 / 3750 Balance 1030 / 1030 50 / 1080 -200 / 880 Weight last 48 hrs Weight 262 lb 9 oz Weight 260 lb Data : 07/26/19 03:34 07/26/19 03:34 Micro: Microbiology 07/24/19 12:30 Blood Culture - Preliminary Blood NEGATIVE TO DATE 07/24/19 12:27 Blood Culture - Preliminary Blood NEGATIVE TO DATE 07/25/19 03:50 Gram Stain - Final Peritoneal Fluid A&P Assessment and plan (1) Amputated toe of left foot: Currently plans are for in and out catheterization for urine sample collection. I recommended use of lidocaine jelly during this procedure. Currently scheduled for wound exploration and debridement of the left foot. He does have ongoing changes consistent with severe peripheral vascular disease which is been previously noted and documented. Long-term outcome of the left foot certainly remains in question. Rationale for exploration debridement and possible extensiveness of the debridement was very frankly discussed with Mr. Kearns. Status: Acute Attestations Medical Necessity Statement*: Gangrenous changes left foot Time Spent in Patient Care: less than 15 minutes Coding Level of Care Code Acute Membership Solicitor for [facility] Fwd Diagnoses Amputated toe of left foot S98.132A
[2019-07-26 06:32] LABS: Glucose Point of Care 146 mg/dL (70-110)
--- NOTE | 2019-07-26 07:48 | P.PN_ITS ---
Subjective Subjective: Interval history: feels better. no fevers. not lightheaded, not getting up Medications: Reviewed: Yes Medication Review Details: Current Medications Acetaminophen (Tylenol) 650 mg PO Q6H PRN PRN Reason: Mild/Mod Pain Or Temp >/= 101 Last Admin: 07/25/19 23:39 Dose: 650 mg Documented by: Atorvastatin Calcium (Lipitor) 20 mg PO BEDTIME THEA Last Admin: 07/25/19 21:54 Dose: 20 mg Documented by: Bisacodyl (Dulcolax) 20 mg PO DAILY PRN PRN Reason: CONSTIPATION Last Admin: 07/24/19 21:10 Dose: 20 mg Documented by: Cyclobenzaprine HCl (Flexeril) 10 mg PO BID PRN PRN Reason: Muscle Pain Dextrose (D50w) 25 ml IVP ONCE PRN; Protocol PRN Reason: hypoglycemia protocol Dextrose (D50w) 50 ml IVP PRN PRN; Protocol PRN Reason: hypoglycemia protocol Glucagon (Glucagen) 1 mg IM ONCE PRN; Protocol PRN Reason: Adult Acute Hypoglycemia Prot. Hydralazine HCl (Apresoline) 10 mg IVP Q4H PRN PRN Reason: SBP > 185 or DBP > 100 Dextrose (D5w) 500 mls @ 100 mls/hr IV ONCE PRN; Protocol PRN Reason: Adult Acute Hypoglycemia Prot Piperacillin Sod/Tazobactam (Sod 2.25 gm/ Sodium Chloride) 50 mls @ 12.5 mls/hr IV Q8H THEA; Protocol Last Admin: 07/26/19 05:40 Dose: 12.5 mls/hr Documented by: Vancomycin HCl 1,000 mg/ (Sodium Chloride) 250 mls @ 250 mls/hr IV Q72H THEA Insulin Aspart (Novolog) 0 unit SUBCUT TIDWM THEA; Protocol Last Admin: 07/25/19 17:34 Dose: 4 unit Documented by: Insulin Aspart (Novolog) 0 unit SUBCUT BEDTIME THEA; Protocol Last Admin: 07/25/19 21:55 Dose: 1 unit Documented by: Insulin Detemir (Levemir) 5 unit SUBCUT BEDTIME THEA Last Admin: 07/25/19 21:55 Dose: 5 unit Documented by: Lactulose (Constulose) 20 gm PO Q6H PRN PRN Reason: CONSTIPATION Last Admin: 07/25/19 08:22 Dose: 20 gm Documented by: Levothyroxine Sodium (Synthroid) 100 mcg PO DAILY [facility] Last Admin: 07/25/19 08:26 Dose: 100 mcg Documented by: Midodrine (Proamatine) 5 mg PO TID [facility] Last Admin: 07/25/19 21:53 Dose: 5 mg Documented by: Nitroglycerin (Nitrostat) 0.4 mg SUBLINGUAL Q5M PRN PRN Reason: Chest Pain Ondansetron HCl (Zofran) 4 mg IVP Q8H PRN PRN Reason: vomiting, or N/V if npo Last Admin: 07/25/19 09:59 Dose: 4 mg Documented by: Peritoneal Dialysis Solution (Dianeal Low Ca W/1.5% Dex) 2,000 ml INTRAPERIT QID [facility] Last Admin: 07/26/19 00:15 Dose: 2,000 ml Documented by: Phenazopyridine HCl (Pyridium) 100 mg PO TID PRN PRN Reason: DYSURIA Last Admin: 07/26/19 02:07 Dose: 100 mg Documented by: Senna/Docusate Sodium (Senna-S) 1 tab PO BID [facility] Last Admin: 07/25/19 17:17 Dose: Not Given Documented by: Vitals/I&O/Wt Last Vital Signs Temp 98.3 F 07/26/19 04:00 Pulse 86 07/26/19 04:40 Resp 18 07/26/19 04:00 BP 170/78 07/26/19 04:40 Pulse Ox 98 07/26/19 04:00 07/25/19 07/26/19 07/26/19 22:59 06:59 14:59 Intake Total 50 / 4580 50 / 4630 Output Total 250 / 3750 Balance 50 / 1080 -200 / 880 Weight last 48 hrs Weight 119.096 kg Weight 117.934 kg Physical Exam Narrative: EXAM NARRATIVE: NARD in bed vs noted bP elevated supine heent- nc/at, eomi, anicteric neck- no jvp lungs clear heart reg, +VIKTORIYA abd soft, nt, nd, +BS, + PD catheter neuro- dec sensation in feet ext- no edema left foot bandaged by 4 th toe amp site, eschars Data : 07/26/19 03:34 07/26/19 03:34 Micro: Microbiology 07/24/19 12:30 Blood Culture - Preliminary Blood NEGATIVE TO DATE 07/24/19 12:27 Blood Culture - Preliminary Blood NEGATIVE TO DATE 07/25/19 03:50 Gram Stain - Final Peritoneal Fluid A&P Additional A&P Information 1. ESRD - pt normally on a cycler at home w/ a last fill. he did not bring in his cycler. we will do CAPD- using low glucose bags- 4 exchanges a day of 2 liter fills - use 1.25 and 2.5 %- alternate 2. orthostatic hypotension- check orthostatic VS q shifts. rather keep supine BP high, so he does not continue to faint -can use midodrine and monitor -based on orthostatic check this am, will start BP meds -use BLANE stockings if okay w/ Dr. Gr who recently did leg intervention -cont to hold proscar -await cardiac echo, 3. leukocytosis- likely from leg- abx, consult of surgery- Dr. Leonardo noted- for OR today LLE periph vasc disease- on zosyn and vanco -- monitor vanco level w/ PD normal PD fluids 4. hgb 12- good for ESRD 5. monitor k, mag -replace k -ca is improving- pth 88- hold vit d analouge 6. Hypothyroidism- tsh down from 6.6 on 06/29/19 to 1.1 on 07/24/19- consider dec levothyroxine dose 7. DM control to help w/ wound healing 8. repeat ua and cx a given dec uop and Q BPH 9. constipation- will rx w/ lactulose- as constipation will effect his PD from working 10. renal mass- 4 cm, as per hospitalist, pt will have outpt f/u w/ Dr. Berg of urology Attestations Medical Necessity Statement*: PVD- foot infection Time Spent in Patient Care: 16 - 35 minutes Coding Level of Care Code Acute Channel Development Director for [facility] [employer]
--- NOTE | 2019-07-26 09:48 | PM.PN ---
Subjective Subjective: Interval history: Patient not feeling well today. He complains of not sleeping while he has been here in. Let him know that the Ambien was held due to the recurrent syncopal/near syncopal episode/falls preceding admission. He expressed understanding. He remains orthostatic. Midrin has been started. He has been seen by Dr. Leonardo and plan is for evaluation of the left foot wound today in the OR. No new complaints. Potassium was low this morning. Had catheterization for repeat urinalysis in the setting of decreased urine output. Medications: Reviewed: Yes Medication Review Details: Remains on vancomycin and Zosyn at renal dosing Midodrine at 5 3 times daily Vitals/I&O/Wt Last Vital Signs Temp 98.3 F 07/26/19 04:00 Pulse 86 07/26/19 04:40 Resp 18 07/26/19 04:00 BP 170/78 07/26/19 04:40 Pulse Ox 98 07/26/19 04:00 07/25/19 07/26/19 07/26/19 22:59 06:59 14:59 Intake Total 50 / 4580 50 / 4630 Output Total 250 / 3750 Balance 50 / 1080 -200 / 880 Weight last 48 hrs Weight 119.096 kg Weight 117.934 kg Physical Exam Const: OTHER: Looks tired, alert and oriented and cooperative. HENMT: OTHER: Normocephalic Eye: OTHER: Extraocular movements intact Resp: OTHER: Clear to auscultation bilaterally, no accessory muscle use Cardio: OTHER: Regular rate and rhythm GI: OTHER: Abdomen soft, nontender : OTHER: Deferred Extremity: NARRATIVE EXTREMITY EXAM: Dressing to left foot is clean dry and intact, not removed today, no red streaks above this Neuro: OTHER: Face symmetric, speech clear, moves all extremities Psych: OTHER: Flat affect today, looks down but will smile Skin: OTHER: Skin dry, no new findings appreciated Data : 07/26/19 03:34 07/26/19 03:34 Micro: Microbiology 07/24/19 12:30 Blood Culture - Preliminary Blood NEGATIVE TO DATE 07/24/19 12:27 Blood Culture - Preliminary Blood NEGATIVE TO DATE 07/25/19 03:50 Gram Stain - Final Peritoneal Fluid A&P Assessment and plan (1) Syncope: With multiple falls prior to admission. [place] secondary to orthostasis and/or medications. Status: Acute Qualifiers: Syncope type: unspecified Qualified Code(s): R55 - Syncope and collapse (2) Orthostatic hypotension: Suspect volume or infection related at this point in time. Several medicines are still held such as Ambien and hydrocodone is decreased. Has been started on Midodrine. Status: Acute (3) Amputated toe of left foot: Done in mid June after intervention for PAD. Had some dehiscence along the suture wound after amputation. He has been following in wound care clinic and been treated with antibiotics. Surgical site has not healed as well as hoped and he is also developed a new wound on the second digit. Going for OR today by Dr. Leonardo. Status: Acute (4) PAD (peripheral artery disease): Status post CSI atherectomy of the SFA followed by [id number] balloon angioplasty, CSI atherectomy of the tibial peroneal trunk and left anterior tibial followed by balloon angioplasty, reconstruction of the arch of the foot which was completely occluded. Done 06/26/2019. Status: Chronic (5) End stage renal failure on dialysis: Peritoneal dialysis patient, nephrology following Status: Chronic (6) Peritoneal dialysis catheter in place: Status: Chronic (7) Malignant hypertension: Present a few weeks ago requiring initiation of multiple antihypertensives. Blood pressures are still high at times but due to orthostasis not being treated, tolerating higher blood pressures. Status: Chronic (8) CAD (coronary artery disease): Prior stent, denies any symptoms recently beyond syncope. Has elevated troponin with value that is trending downward. I do not have comparative recent values but suspect has a chronic elevation. EKG with similar changes to previous from June with inferior and lateral changes. Repeat EKG reviewed today. Last stress test that I have available is from 2017. Status: Chronic (9) Diet-controlled type 2 diabetes mellitus: With recent hyperglycemia, which is probably contributing to wound healing challenges in addition to other comorbidities. Hemoglobin A1c was checked and is at 7.0. With vascular issues and wound healing needs, will need to initiate treatment. Have discussed with him preference for insulin in the setting of need for maximal control to promote wound healing. He is in agreement though not thrilled with it. Status: Chronic (10) Dyslipidemia: Chronically on a statin Status: Chronic (11) Acquired hypothyroidism: Chronically on levothyroxine, with drop in TSH noted over the last month. Normal free T4. Suspect related to sick euthyroid with what is acutely going on. He has been on the same dose of levothyroxine for quite some time according to review of external records. Status: Chronic (12) Renal mass: Has been present going back to at least 2017. Had followed with his dural mechanic but has not had further formal evaluation due to inconsistencies on a repeat imaging study by patient's report. Will need outpatient work-up and this has been discussed with Dr. Berg. Status: Chronic (13) Anticoagulated: With apixaban, started mid-June with plan for 3 months of treatment secondary to reconstruction of the chronically occluded vascular arch of the left foot. Presently held due to planned debridement of foot wound. Status: Chronic Additional A&P Information Plan is for OR today Continue antibiotics Greatly appreciate Dr. Leonardo's assistance Continuing Midrin and tolerance of higher blood pressures. Current plan is to see if orthostasis improves after debridement. May have to look at alternatives such as Florinef Still with occasional sinus tachycardia. Off of home beta-blockade presently. Has not required intervention. Echocardiogram ordered Will need outpatient follow-up with cardiology Yissel is held for anticipated procedure >> on due to recent revascularization of the left foot Follow-up pending cultures and any cultures collected during debridement Currently has urine, blood and peritoneal fluid cultures pending Sed rate and CRP have been collected for future follow-up, ESR 95, CRP 53.2 Dr. Daugherty office following for peritoneal dialysis and assistance with other management related to this which is much appreciated Will need outpatient follow-up with Dr. Berg to address renal mass Continue current insulin therapy including low-dose long-acting at bedtime. Plan is for insulin therapy at discharge which patient agrees to. Continue home statin On a decreased dose of home hydrocodone to 5 mg due to orthostasis Ambien held currently due to orthostasis. Alternatives will likely have similar risk to contribute to orthostasis and falls but will see if we can find something to help him Has not required Flexeril so we will discontinue in light of continued orthostasis Patient is aware he should not be getting out of bed without assistance, even to bedside commode Plans discussed with patient and he was given an opportunity to ask questions. Hopefully after debridement he will feel better which should help his mood. Supportive care otherwise Full code Attestations Medical Necessity Statement*: Requires ongoing inpatient stay for continued management of wound and orthostasis as noted above. Coding Level of Care Code Acute Restorative Care Technician for Chg Fwd Diagnoses Syncope R55 Syncope type: unspecified Orthostatic hypotension I95.1 Amputated toe of left foot S98.132A PAD (peripheral artery disease) I73.9 End stage renal failure on dialysis N18.6; Z99.2 Peritoneal dialysis catheter in place Z99.2 Malignant hypertension I10 CAD (coronary artery disease) I25.10 Diet-controlled type 2 diabetes mellitus E11.9 Dyslipidemia E78.5 Acquired hypothyroidism E03.9 Renal mass N28.89 Anticoagulated Z79.01
[2019-07-26] MEDS: ondansetron 2 mg/ML SDV 2 mL 4 MG IVP (10:11)
[2019-07-26] MEDS: acetaminophen 325 mg Tablet 650 MG PO ×2 (10:11→21:11)
[2019-07-26] MEDS: potassium chloride ER 10 mEq Tablet 20 MEQ PO (10:11)
[2019-07-26] MEDS: pantoprazole DR 40 mg Tablet PO (10:12)
[2019-07-26] MEDS: midodrine 5 mg TABLET PO ×2 (10:12→21:05)
[2019-07-26] MEDS: levothyroxine 100 mcg Tablet PO (10:12)
[2019-07-26 11:00] LABS: Glucose Point of Care 234 mg/dL (70-110)
--- NOTE | 2019-07-26 14:47 | P.ANESASSM_ITS ---
Pre-Anesthetic Assessment Pre-Anesthetic Assessment: Height/Weight: Height 1.75 m Weight 119.096 kg Temp Pulse Resp BP Pulse Ox 97.5 F L 99 20 H 146/88 100 07/26/19 14:37 07/26/19 14:37 07/26/19 14:37 07/26/19 14:37 07/26/19 14:37 Preop Diagnosis: Gangrene left fourth toe Proposed Procedure: Operation Date: 07/26/19 15:00 Proposed Procedures p Debridement(Left) - Tommy Leonardo MD Familial anesthetic complications: None Was Beta Fern taken within 24 hours: N/A Last intake: NPO > 8 hrs Social: Social History: No alcohol and No tobacco Exam: Pre-Anes Outpt Exam: alert, oriented x 3, clear to auscultation bilaterally and regular rate & rhythm Airway: Cervical ROM: WNL MP: 3 Additional comments: edentulous Pulmonary: Pulmonary: None reported CV/HEM: CV/HEM: CAD (stent > 1 year ago), HTN, [place] and PVD : : Chronic renal failure Comments: peritoneal dialysis Hepatic: Hepatic: None reported GI: GI: GERD Metabolic: Metabolic: DM, Hyperlipidemia and Thyroid Musc/skel: Musc/skel: Lower Back Pain Neuropsych: Neuropsych: None reported Anesthetic Plan: ASA status: 4 Anesthesia: MAC Risk of > 500 ml blood loss (7ml/kg in children): No Meds/Allergies Current Medications: Current Medications Generic Name Dose Route Start Last Admin Trade Name Freq PRN Reason Stop Dose Admin Acetaminophen 650 mg 07/24/19 17:45 07/26/19 10:11 Tylenol PO 650 mg Q6H PRN Administration Mild/Mod Pain Or Temp >/= 101 Atorvastatin Calci um 20 mg 07/24/19 21:00 07/25/19 21:54 Lipitor PO 20 mg BEDTIME THEA Administration Bisacodyl 20 mg 07/24/19 18:21 07/24/19 21:10 Dulcolax PO 20 mg DAILY PRN Administration CONSTIPATION Piperacillin Sod/T azobactam 50 mls @ 12.5 mls /hr 07/24/19 22:00 07/26/19 09:40 Sod 2.25 gm/ Sod ium Chloride IV Infused Q8H THEA Infusion Protocol As Directed Insulin Aspart 0 unit 07/25/19 08:00 07/26/19 12:35 Novolog SUBCUT 6 unit TIDWM THEA Administration Protocol Insulin Aspart 0 unit 07/24/19 21:00 07/25/19 21:55 Novolog SUBCUT 1 unit BEDTIME THEA Administration Protocol Insulin Detemir 5 unit 07/24/19 21:00 07/25/19 21:55 Levemir SUBCUT 5 unit BEDTIME THEA Administration Lactulose 20 gm 07/24/19 20:35 07/25/19 08:22 Constulose PO 20 gm Q6H PRN Administration CONSTIPATION Levothyroxine Sodi um 100 mcg 07/25/19 09:00 07/26/19 10:12 Synthroid PO 100 mcg DAILY THEA Administration Midodrine 5 mg 07/25/19 09:00 07/26/19 10:12 Proamatine PO 5 mg TID THEA Administration Ondansetron HCl 4 mg 07/24/19 17:45 07/26/19 10:11 Zofran IVP 4 mg Q8H PRN Administration vomiting, or N/V if npo Pantoprazole Sodiu m 40 mg 07/26/19 09:00 07/26/19 10:12 Protonix PO 40 mg DAILY THEA Administration Peritoneal Dialysi s Solution 2,000 ml 07/26/19 09:00 07/26/19 12:35 Dianeal Low Ca W /1.5% Dex INTRAPERIT 2,000 ml BID THEA Administration Senna/Docusate Sod ium 1 tab 07/24/19 18:20 07/26/19 10:13 Senna-S PO Not Given BID THEA Additional Medication Information: Remains on vancomycin and Zosyn at renal dosing Midodrine at 5 3 times daily PFSH Anesthesia PFSH: Medical History Acquired hypothyroidism Acquired spondylolisthesis Anxiety and depression CAD (coronary artery disease) Cardiac stent x1 Chronic hypertension Diet-controlled type 2 diabetes mellitus Has been diet controlled since significant weight loss Dyslipidemia End stage renal failure on dialysis Peritoneal dialysis Environmental and seasonal allergies Erectile dysfunction due to diseases classified elsewhere HPTH (hyperparathyroidism) Malignant hypertension PAD (peripheral artery disease) With critical lower limb ischemia 06/2019 requiring intervention with CSI atherectomy of the SFA followed by [id number] balloon angioplasty, CSI atherectomy of the tibial peroneal trunk and left anterior tibial followed by balloon angioplasty, reconstruction of the arch of the foot which was completely occluded. Polyneuropathy Vitamin D deficiency Surgical History Amputated toe of left foot due to gangrene 06/27/2019 History of heart artery stent History of repair of right rotator cuff History of toe surgery Left great toe debridement Peritoneal dialysis catheter in place Family History Brother Cancer Mother Cancer Father Heart disease Social History Smoking and tobacco status: former smoker Second hand smoke exposure: No Smoking risk assessment/counseling performed?: No Alcohol intake: unknown Desire information about alcohol rehabilitation?: No Counseling given: No Desire information about substance/drug rehabilitation?: No Counseling given: No Caregiver/support person: No Lives independently: Yes Housing: House Marital status: Legally Highest education level completed: Some College, No Degree service: No Current occupational status: disabled Pets and animals: Yes History of recent travel: No Current gender identity: Male Data Anesthesia CBC & Chem 7: 07/26/19 03:34 07/26/19 03:34 Other Labs: Laboratory Results - last 48 hr 07/24/19 07/24/19 07/24/19 14:35 18:35 22:12 WBC RBC Hgb Hct MCV MCH MCHC RDW Plt Count MPV Neut % (Auto) Lymph % (Auto) [place] % (Auto) Eos % (Auto) Baso % (Auto) Neut # (Auto) Lymph # (Auto) [place] # (Auto) Eos # (Auto) Baso # (Auto) Nucleated RBC % (auto) Nucleated RBCs # ESR Sodium Potassium Chloride Carbon Dioxide Anion Gap BUN Creatinine GFR Calculation Glucose POC Glucose 223 Calculated Osmolality Calcium Phosphorus Magnesium Total Bilirubin AST ALT Alkaline Phosphatase Troponin I 6 Hour 217.2 H Troponin I Hi Sens Del -23.8 L Troponin T 120 Minute 233.6 H Delta Troponin T -7.4 L C-Reactive Protein Total Protein Albumin Globulin PTH Intact Calcium (PTH Intact) Fluid Color Fluid Appearance Fluid WBC Fluid RBC Fld Polynuclear WBCs % Fl Mononuclear % Auto Random Vancomycin 07/25/19 07/25/19 07/25/19 03:50 05:50 05:50 WBC 21.9 H RBC 3.93 L Hgb 12.0 Hct 36.2 L MCV 92.1 MCH 30.5 MCHC 33.1 RDW 13.4 Plt Count 397 MPV 8.7 Neut % (Auto) 83.4 Lymph % (Auto) 9.6 [place] % (Auto) 4.8 Eos % (Auto) 1.0 Baso % (Auto) 0.4 Neut # (Auto) 18.3 H Lymph # (Auto) 2.1 [place] # (Auto) 1.1 H Eos # (Auto) 0.2 Baso # (Auto) 0.1 Nucleated RBC % (auto) 0 Nucleated RBCs # 0.0 ESR Sodium 134 L Potassium 3.1 L Chloride 90 L Carbon Dioxide 22 Anion Gap 25.1 H BUN 45 H Creatinine 11.0 H* GFR Calculation 4.9 L Glucose 134 H POC Glucose Calculated Osmolality 278 L Calcium 9.9 Phosphorus 6.5 H Magnesium 2.1 Total Bilirubin AST ALT Alkaline Phosphatase Troponin I 6 Hour Troponin I Hi Sens Del Troponin T 120 Minute Delta Troponin T C-Reactive Protein Total Protein Albumin Globulin PTH Intact Calcium (PTH Intact) Fluid Color Colorless Fluid Appearance Clear Fluid WBC 7 Fluid RBC 0 Fld Polynuclear WBCs % 0.000 Fl Mononuclear % Auto 100.000 Random Vancomycin 07/25/19 07/25/19 07/25/19 05:50 05:50 05:50 WBC RBC Hgb Hct MCV MCH MCHC RDW Plt Count MPV Neut % (Auto) Lymph % (Auto) [place] % (Auto) Eos % (Auto) Baso % (Auto) Neut # (Auto) Lymph # (Auto) [place] # (Auto) Eos # (Auto) Baso # (Auto) Nucleated RBC % (auto) Nucleated RBCs # ESR 95 H Sodium Potassium Chloride Carbon Dioxide Anion Gap BUN Creatinine GFR Calculation Glucose POC Glucose Calculated Osmolality Calcium Phosphorus Magnesium Total Bilirubin AST ALT Alkaline Phosphatase Troponin I 6 Hour Troponin I Hi Sens Del Troponin T 120 Minute Delta Troponin T C-Reactive Protein 53.2 H Total Protein Albumin Globulin PTH Intact Calcium (PTH Intact) Fluid Color Fluid Appearance Fluid WBC Fluid RBC Fld Polynuclear WBCs % Fl Mononuclear % Auto Random Vancomycin 25.3 07/25/19 07/25/19 07/25/19 05:50 06:28 11:04 WBC RBC Hgb Hct MCV MCH MCHC RDW Plt Count MPV Neut % (Auto) Lymph % (Auto) [place] % (Auto) Eos % (Auto) Baso % (Auto) Neut # (Auto) Lymph # (Auto) [place] # (Auto) Eos # (Auto) Baso # (Auto) Nucleated RBC % (auto) Nucleated RBCs # ESR Sodium Potassium Chloride Carbon Dioxide Anion Gap BUN Creatinine GFR Calculation Glucose POC Glucose 140 193 Calculated Osmolality Calcium Phosphorus Magnesium Total Bilirubin AST ALT Alkaline Phosphatase Troponin I 6 Hour Troponin I Hi Sens Del Troponin T 120 Minute Delta Troponin T C-Reactive Protein Total Protein Albumin Globulin PTH Intact 88.4 H Calcium (PTH Intact) 8.9 Fluid Color Fluid Appearance Fluid WBC Fluid RBC Fld Polynuclear WBCs % Fl Mononuclear % Auto Random Vancomycin 07/25/19 07/25/19 07/26/19 17:00 20:57 03:34 WBC 21.5 H RBC 3.98 L Hgb 12.0 Hct 36.2 L MCV 91.0 MCH 30.2 MCHC 33.1 RDW 13.3 Plt Count 369 MPV 8.7 Neut % (Auto) 85.2 Lymph % (Auto) 8.1 [place] % (Auto) 4.9 Eos % (Auto) 0.5 Baso % (Auto) 0.5 Neut # (Auto) 18.4 H Lymph # (Auto) 1.7 [place] # (Auto) 1.1 H Eos # (Auto) 0.1 Baso # (Auto) 0.1 Nucleated RBC % (auto) 0 Nucleated RBCs # 0.0 ESR Sodium Potassium Chloride Carbon Dioxide Anion Gap BUN Creatinine GFR Calculation Glucose POC Glucose 197 145 Calculated Osmolality Calcium Phosphorus Magnesium Total Bilirubin AST ALT Alkaline Phosphatase Troponin I 6 Hour Troponin I Hi Sens Del Troponin T 120 Minute Delta Troponin T C-Reactive Protein Total Protein Albumin Globulin PTH Intact Calcium (PTH Intact) Fluid Color Fluid Appearance Fluid WBC Fluid RBC Fld Polynuclear WBCs % Fl Mononuclear % Auto Random Vancomycin 07/26/19 07/26/19 07/26/19 03:34 06:28 10:42 WBC RBC Hgb Hct MCV MCH MCHC RDW Plt Count MPV Neut % (Auto) Lymph % (Auto) [place] % (Auto) Eos % (Auto) Baso % (Auto) Neut # (Auto) Lymph # (Auto) [place] # (Auto) Eos # (Auto) Baso # (Auto) Nucleated RBC % (auto) Nucleated RBCs # ESR Sodium 134 L Potassium 2.9 L Chloride 92 L Carbon Dioxide 23 Anion Gap 21.9 H BUN 54 H Creatinine 10.7 H* GFR Calculation 5.1 L Glucose 145 H POC Glucose 146 234 Calculated Osmolality 279 L Calcium 9.2 Phosphorus 5.9 H Magnesium 2.1 Total Bilirubin 0.3 AST 12 ALT 8 Alkaline Phosphatase 113 Troponin I 6 Hour Troponin I Hi Sens Del Troponin T 120 Minute Delta Troponin T C-Reactive Protein Total Protein 6.3 L Albumin 3.2 L Globulin 3.1 PTH Intact Calcium (PTH Intact) Fluid Color Fluid Appearance Fluid WBC Fluid RBC Fld Polynuclear WBCs % Fl Mononuclear % Auto Random Vancomycin Micro: Microbiology 07/25/19 03:50 Gram Stain - Final Peritoneal Fluid Body Fluid Culture - Preliminary 07/24/19 12:30 Blood Culture - Preliminary Blood NEGATIVE TO DATE 07/24/19 12:27 Blood Culture - Preliminary Blood NEGATIVE TO DATE Cardiac Studies: No Data to Display
[2019-07-26 14:49] LABS: Glucose Urine UA Norm (Normal); Ketones Urine Negative (Negative); Protein Urine 2+ (Negative); Specific Gravity, Urine 1.015 (1.005-1.030); Urine Color Yellow (Yellow); pH Urine 5 (5-7)
[2019-07-26 14:50] LABS: Bilirubin Urine Neg (NEGATIVE); Blood Urine 3+ (Negative); Leukocyte Esterase Urine Trace (Negative); Nitrate Urine Negative (Negative); Urobilinogen Urine Norm (Negative)
[2019-07-26 14:51] LABS: RBC Urine 25-40 /hpf (0-2)
[2019-07-26 14:52] LABS: Bacteria Urine 3+; Squamous Epithelial Cell Urine 0-4 (0-5); WBC Urine 15-25 /hpf (0-5)
[2019-07-26 14:53] LABS: Add Urine Culture? Yes; Sperm Urine 1+
[2019-07-26] MEDS: fentaNYL 50 mcg/mL INJ 2mL IVP (15:01)
[2019-07-26] MEDS: sodium chloride 0.9% 1,000 ML 30 ML IV (15:07)
[2019-07-26] MEDS: vancomycin 1,000 MG SDV 1000 MG IRRIGATION (15:37)
[2019-07-26] MEDS: lidocaine 1% INJ 20 mL INJECTION (15:37)
--- NOTE | 2019-07-26 16:10 | P.OP_ITS ---
Operative Report Date of procedure: July 26, 2019 Pre-op Diagnosis: Gangrene left fourth toe amputation site Post-op diagnosis: same Procedure Done: Surgical debridement of devitalized soft tissue, tendon, and bone from the amputation site of the left fourth toe Specimens removed/disposition: Soft tissue collected for culture Bone specimens collected for culture Surgeon: Tommy Leonardo Anesthesia: MAC Estimated blood loss (mL): 10 Complications: None Condition: stable Disposition: PACU Brief History: Mr. Kearns is a 54-year-old gentleman with a known history of peripheral vascular disease status post intervention including atherectomy of the left SFA and tibioperoneal trunk by Dr. Gr in early June. He stepped underwent amputation of the completely gangrenous left fourth toe by myself June 26. He has been followed through wound care services and re-presented with complaints of dizziness and fatigue and there was concerns of possible sepsis. He is on peritoneal dialysis for chronic renal failure. He has been placed on Zosyn and vancomycin. Upon my inspection he has devitalized soft tissue around the wound itself and I do feel that further debridement would be of benefit. The prior wound status post fourth toe amputation was completely dehisced with this devitalized tissue along the periphery. Procedure: Mr. Kearns was taken operating room theater carefully positioned. With appropriate monitoring he underwent conscious sedation by our anesthesia colleagues. His entire left foot and lower extremity to mid calf region was sterilely prepped and draped. A subsequent formed sharp debridement utilizing a #15 scalpel and remove all devitalized epidermis and subcutaneous tissues this extended all the way down to the previously transected fourth metatarsal head. Bone rondure was utilized to remove further exposed bone though this bone did appear to be viable. There was no yosvany purulence noted that appeared to possibly represent continued ischemia of this wound. This is concerning. He also has ischemia and early gangrenous skin changes to the medial aspect of the left fifth toe. After complete debridement of devitalized tissue, irrigation was performed with normal saline. Hemostasis was confirmed with cautery utilized very little. Most of the bleeding was from venous tributaries, cr eating further concern of possible arterial insufficiency despite Dr. Gr's previous heroic interventions. A dry dressing was then applied. Which caused waken from IV conscious sedation and taken to the postoperative care unit in stable condition.
--- NOTE | 2019-07-26 16:16 | SUR.PHASEI ---
1613- ORAL AIRWAY OUT, SIMPLE MASK AT 6LPM SAT 100%
[2019-07-26 16:59] LABS: Glucose Point of Care 153 mg/dL (70-110)
--- NOTE | 2019-07-26 17:21 | USCV_ITS ---
Christiano Kearns Age: 54 Gender: M : 1965 Exam Date: 07/26/2019 06:24 Ordering Phys: Malena Bacon MD Technologist: Sarah Moreira Exam Location: [facility] [place] Indication: CAD, EKG CHANGES, ELEV TROP BP: 164 / 84 HR: 94 Rhythm: Sinus Technical Quality: Very technically difficult study MEASUREMENTS (Male / Female) Normal Values 2D ECHO LV Diastolic Diameter PLAX 4.6 cm 4.2 - 5.9 / 3.9 - 5.3 cm LV Systolic Diameter PLAX 3.1 cm IVS Diastolic Thickness 1.6 cm 0.6 - 1.0 / 0.6 - 0.9 cm IVS Systolic Thickness 1.3 cm LVPW Diastolic Thickness 0.8 cm 0.6 - 1.0 / 0.6 - 0.9 cm LVPW Systolic Thickness 1.3 cm LVOT Diameter 2.0 cm LV Ejection Fraction 2D Teich 60.1 % LA Diameter 3.3 cm LA Width 5.2 cm LA Height 3.3 cm RA Width 4.0 cm RA Height 3.7 cm Aorta at Sinotubular Diameter 2.7 cm M-MODE LV Diastolic Diameter MM 4.1 cm 4.2 - 5.9 / 3.9 - 5.3 cm LV Systolic Diameter MM 2.6 cm LV Ejection Fraction MM Teich 66.8 % IVS Diastolic Thickness MM 1.4 cm 0.6 - 1.0 / 0.6 - 0.9 cm IVS Systolic Thickness MM 1.9 cm LVPW Diastolic Thickness MM 1.5 cm 0.6 - 1.0 / 0.6 - 0.9 cm LVPW Systolic Thickness MM 1.4 cm RV Diastolic Diameter MM 2.8 cm Aortic Annulus Diameter 3.7 cm LA Ao Ratio MM 0.9 MV E Point Septal Separation 1.3 cm DOPPLER AV Peak Velocity 127.0 cm/s LVOT Peak Velocity 92.0 cm/s AV Area Cont Eq vti 2.3 cm squared AV Area Cont Eq pk 2.3 cm squared MV Area PHT 9.6 cm squared Mitral E to A Ratio 0.3 MV E' Velocity 7.0 cm/s Mitral E to MV E' Ratio 6.1 Mitral E to LV E' Lateral Ratio 6.0 Mitral E to LV E' Septal Ratio 6.2 TV Peak E Velocity 80.0 cm/s PV Peak Velocity 63.0 cm/s FINDINGS Left Ventricle Normal left ventricular cavity size. Normal left ventricular systolic function. No regional wall motion abnormalities. Left ventricular ejection fraction is estimated at 66 %. Grade I/IV diastolic dysfunction (abnormal relaxation filling pattern), normal to mildly elevated filling pressures. Right Ventricle The right ventricle is normal in size and function. RVSP could not be calculated due to incomplete tricuspid regurgitation velocity profile. Right Atrium The right atrium is normal in size. Left Atrium The left atrium is normal in size. Mitral Valve Severely thickened mitral valve. Moderate mitral annular calcification. No mitral valve regurgitation. No mitral valve stenosis. Aortic Valve Severe aortic valve calcification. Mild aortic valve stenosis, mean gradient 3.3 mmHg, CHAIM 2.3 cm squared. No aortic valve regurgitation. Tricuspid Valve Structurally normal tricuspid valve without significant stenosis or regurgitation. Pulmonary artery systolic pressure is normal. Pulmonic Valve Structurally normal pulmonic valve without significant stenosis. There is no pulmonic regurgitation. Pericardium Normal pericardium without effusion. Aorta Normal ascending aorta dimension. CONCLUSIONS 1-Normal left ventricular cavity size. Normal left ventricular systolic function. No regional wall motion abnormalities. Left ventricular ejection fraction is estimated at 66 %. Grade I/IV diastolic dysfunction (abnormal relaxation filling pattern), normal to mildly elevated filling pressures. 2-There is no pericardial effusion. 3-The right ventricle is normal in size and function. RVSP could not be calculated due to incomplete tricuspid regurgitation velocity profile. 4-When compared to the prior echocardiogram dated 09/09/2016 there appeared to be thickening of mitral valve and mild aortic valve stenosis. Greta Gr MD (Electronically Signed) Final Date: 26 July 2019 17:06 S
[2019-07-26] MEDS: Dianeal low Ca w/2.5% dex 2,000 mL Bag 2000 ML INTRAPERIT (18:26)
--- NOTE | 2019-07-26 20:01 | PC.NURSE ---
dressing to left foot dry and intact no complaints voiced.
[2019-07-26] MEDS: atorvastatin 40 mg Tablet 20 MG PO (21:05)
[2019-07-26 21:35] LABS: Glucose Point of Care 185 mg/dL (70-110)
[2019-07-26] MEDS: hyDRALAzine 20 mg/mL INJ 1 mL 10 MG IVP (21:41)
--- NOTE | 2019-07-26 22:04 | PC.NURSE ---
[facility] reports some eposides of vtach 2-3 beat runs Sent picture to Dr rao notified of bp 189/98 and given hydrazaline 10mg for bp and will recheck no new orders.
[2019-07-26] MEDS: HYDROcodone-acetaminophen 10-325 mg Tablet 1 TAB PO (23:33)
[2019-07-27] VITALS (11 sets, daily range): BP systolic 71–202; BP diastolic 52–103; PULSE 81–126; RESP 16–18; TEMP 36.7–37; O2SAT 95–99
--- NOTE | 2019-07-27 01:36 | PC.NURSE ---
Dressing to left foot coming off, reapplied dressing pt request some of dressing between greater toe removed stated putting too much pressure on other toe.
[2019-07-27] MEDS: piperacillin-tazobactam 2.25 GM in sodium chloride 0.9% (plus) 50 ML IV ×3 (02:08→17:42)
[2019-07-27 03:46] LABS: Basophils # 0.1 10^3/uL (0.0-0.1); Basophils % 0.3 %; Eosinophils % 0.2 %; Hematocrit 36.2 % (42.0-52.0); Hemoglobin 11.7 g/dL (11.7-16.6); Lymphocytes # 1.5 10^3/uL (0.8-4.8); Lymphocytes % 7.8 %; Mean Corpuscular HGB Conc 32.3 g/dL (30.0-36.0); Mean Corpuscular Hemoglobin 29.8 pg (28.0-34.0); Mean Corpuscular Volume 92.1 fL (80-94); Mean Platelet Volume 8.9 fL (7.4-10.4); Monocytes % 5.5 %; Neutrophils # 15.9 10^3/uL (1.8-7.7); Neutrophils % 85.4 %; Nucleated Red Blood Cells % 0 %; Platelet Count 396 10^3/cmm (130-400); Red Blood Count 3.93 10^6/uL (4.1-5.3); Red Cell Distribution Width 13.5 % (12.1-15.1); White Blood Count 18.6 10^3/uL (4.0-10.0)
[2019-07-27 04:02] LABS: Alanine Aminotransferase 6 U/L (0-41); Albumin Level 3.2 g/dL (3.5-5.2); Alkaline Phosphatase 98 IU/L (40-130); Anion Gap 24.5 (5-19); Aspartate Amino Transferase 8 U/L (0-40); Blood Urea Nitrogen 42 mg/dL (6-20); Carbon Dioxide 22 mmol/L (22-29); Chloride 94 mmol/L (98-107); Globulin 3.5 g/dL (1.3-4.6); Glomerular Filtration Rate 5.5 mL/min (90-130); Glucose 186 mg/dL (65-115); Osmolality Calculated 287 mOsm/kg (285-295); Phosphorus 5.4 mg/dL (2.5-4.5); Potassium 3.5 mmol/L (3.5-5.1); Sodium 137 mmol/L (136-145); Total Bilirubin 0.3 mg/dL (0.15-1.2); Total Protein 6.7 g/dL (6.6-8.7)
[2019-07-27] MEDS: HYDROcodone-acetaminophen 10-325 mg Tablet 1 TAB PO ×3 (04:11→23:31)
--- NOTE | 2019-07-27 04:26 | PC.NURSE ---
pt spilled urinal with small to medium amount of urine. Small amount of bm to pad and up to bsc. rae care per staff. Osbp with changes when standing denied dizziness at this time.
[2019-07-27] MEDS: Dianeal low Ca w/2.5% dex 2,000 mL Bag 2000 ML INTRAPERIT ×2 (04:36→17:39)
--- NOTE | 2019-07-27 06:20 | P.PN_ITS ---
Subjective Subjective: Interval history: Postop day #1 status post debridement of the amputation site of the left fourth toe. Gram stain is returned a few gram- positive cocci and pairs and clusters. ID is pending. He also was noted to have a substantial urinary tract infection from urine sample collected yesterday. He currently is on vancomycin and Zosyn. I did discuss very frankly Mr. Kearns concerning some changes noted on the medial aspect of the left fifth toe. I am concerned that he may have ongoing ischemic issues despite prior interventions by Dr. Gr for obviously severe peripheral vascular disease. We will need to wait and see the progression of these changes. Vitals/I&O/Wt Last Vital Signs Temp 98.6 F 07/27/19 04:00 Pulse 86 07/27/19 04:00 Resp 18 07/27/19 04:00 BP 144/87 07/27/19 04:42 Pulse Ox 98 07/27/19 04:00 07/26/19 07/26/19 07/27/19 14:59 22:59 06:59 Intake Total 170 / 170 230 / 400 280 / 680 Output Total 101 / 106 Balance 170 / 170 225 / 395 179 / 574 Weight last 48 hrs Weight 191 lb 1.6 oz Weight 2000 lb Weight 262 lb 9 oz Physical Exam Extremity: NARRATIVE EXTREMITY EXAM: Left foot currently still has a surgical bandage on. I will change later after my morning operative cases. Data : 07/27/19 03:15 07/27/19 03:15 Micro: Microbiology 07/26/19 15:49 Gram Stain - Final Foot - #2 07/26/19 15:40 Gram Stain - Final Foot - #1 07/25/19 03:50 Gram Stain - Final Peritoneal Fluid Body Fluid Culture - Preliminary A&P Assessment and plan (1) Amputated toe of left foot: Postop day #1 status post left foot debridement. Plan: Continue wet-to-dry dressing changes for now. Status: Acute Attestations Medical Necessity Statement*: Severe peripheral vascular disease and diabetic ulceration status post left fourth toe amputation and status post debridement Time Spent in Patient Care: less than 15 minutes Coding Level of Care Code Acute Gripper Machine Operator for Fabian Pak Diagnoses Amputated toe of left foot S98.132A
[2019-07-27 06:44] LABS: Glucose Point of Care 184 mg/dL (70-110)
[2019-07-27] MEDS: sennosides-docusate Tablet 1 TAB PO (08:54)
[2019-07-27] MEDS: midodrine 5 mg TABLET PO ×3 (08:54→23:26)
[2019-07-27] MEDS: pantoprazole DR 40 mg Tablet PO (08:54)
[2019-07-27] MEDS: levothyroxine 100 mcg Tablet PO (08:55)
[2019-07-27] MEDS: phenazopyridine 100 mg Tablet PO (09:59)
[2019-07-27 10:19] LABS: Bilirubin Urine 1+ (NEGATIVE); Blood Urine 2+ (Negative); Glucose Urine UA Trace (Normal); Ketones Urine Negative (Negative); Nitrate Urine Positive (Negative); Protein Urine 3+ (Negative); Urine Appearance Clear (CLEAR); Urine Color Yellow (Yellow); pH Urine 5 (5-7)
[2019-07-27 10:20] LABS: Add Urine Microscopic? YES; Leukocyte Esterase Urine 1+ (Negative); Urobilinogen Urine 1 mg/dL (Negative)
[2019-07-27 10:25] LABS: Add Urine Culture? Yes; Bacteria Urine 1+; Mucus Urine t; RBC Urine 0-4 /hpf (0-2); Squamous Epithelial Cell Urine 0-4 (0-5); WBC Urine 0-4 /hpf (0-5)
[2019-07-27 11:12] LABS: Glucose Point of Care 203 mg/dL (70-110)
[2019-07-27] MEDS: levoFLOXacin 250 mg Tablet PO ×2 (11:37→11:38)
--- NOTE | 2019-07-27 11:54 | P.PN_ITS ---
Subjective Subjective: Interval history: Some discomfort in the foot. PD is going well with clear effluent, painless dwells and drains. No edema and no other volume assoc Sx. Hemodynamics are reviewed. Vitals/I&O/Wt Last Vital Signs Temp 98.0 F 07/27/19 07:32 Pulse 92 07/27/19 11:26 Resp 16 07/27/19 07:32 BP 187/91 07/27/19 10:00 Pulse Ox 95 07/27/19 11:26 07/26/19 07/27/19 07/27/19 22:59 06:59 14:59 Intake Total 230 / 400 330 / 730 360 / 360 Output Total 101 / 106 Balance 225 / 395 229 / 624 360 / 360 Weight last 48 hrs Weight 86.682 kg Weight 907.185 kg Weight 119.096 kg Physical Exam Narrative: EXAM NARRATIVE: NARD in bed vs noted bP elevated supine heent- nc/at, eomi, anicteric neck- no jvp lungs clear heart reg, +VIKTORIYA abd soft, nt, nd, +BS, + PD catheter neuro- dec sensation in feet ext- no edema left foot bandaged by 4 th toe amp site, eschars Data : 07/27/19 03:15 07/27/19 03:15 Micro: Microbiology 07/25/19 03:50 Gram Stain - Final Peritoneal Fluid Body Fluid Culture - Preliminary 07/26/19 15:49 Gram Stain - Final Foot - #2 07/26/19 15:40 Gram Stain - Final Foot - #1 A&P Additional A&P Information 1. ESRD on PD - CAPD prescription; 4 x 2L exchanges 2.5% alt 4.25% - No changes, this is going well - does meds for eGFR < 15 on PD 2. S/p debridement of the foot - per Dr Leonardo and Dr Gr - wound care - mobilization as tolerated - Ilene and Bimal on board - some concern about ongoing PVD 3. Hemodynamics are robust - on midodrine for orthostasis 4. 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 Lytes look good, well balanced - interview and exam performed via telemed using the assistance of the bedside RN Attestations Medical Necessity Statement*: eval for ESRD mgmt Coding Level of Care Code Acute Licensed Prosthetist/Orthotist for Chg Fwd
[2019-07-27 17:03] LABS: Glucose Point of Care 217 mg/dL (70-110)
--- NOTE | 2019-07-27 17:55 | PM.PN ---
Subjective Subjective: Interval history: Complaining of penile discomfort after in and out catheterization attempts to get urine. Dr. Moore gave the okay for some Pyridium. Doing okay post debridement of his left foot. Still with orthostasis but overall not as dizzy as he had been previously. Vitals/I&O/Wt Last Vital Signs Temp 98.0 F 07/27/19 15:13 Pulse 83 07/27/19 15:13 Resp 16 07/27/19 15:13 BP 162/88 07/27/19 15:14 Pulse Ox 97 07/27/19 15:13 07/27/19 07/27/19 07/27/19 06:59 14:59 22:59 Intake Total 330 / 730 650 / 650 Output Total 101 / 106 Balance 229 / 624 650 / 650 Weight last 48 hrs Weight 86.682 kg Weight 907.185 kg Weight 119.096 kg Physical Exam Const: OTHER: Less ill-appearing today, alert, oriented, cooperative Resp: OTHER: Clear to auscultation bilaterally Cardio: OTHER: Regular rate and rhythm GI: OTHER: Abdomen soft, nontender : OTHER: No external cause of discomfort noted Extremity: NARRATIVE EXTREMITY EXAM: New dressing to left foot. Eschar remains visible on the medial side of the fifth digit. Dressing is clean dry and intact. Neuro: OTHER: Face symmetric, speech clear, moves all extremities Psych: OTHER: More animated in his facial expressions today Skin: OTHER: Skin dry Data : 07/27/19 03:15 07/27/19 03:15 Micro: Microbiology 07/25/19 03:50 Gram Stain - Final Peritoneal Fluid Body Fluid Culture - Preliminary 07/26/19 14:20 Urine Culture - Preliminary Urine Catheterized 07/26/19 15:49 Gram Stain - Final Foot - #2 07/26/19 15:40 Gram Stain - Final Foot - #1 Echo: Radiologist's impression: Left Ventricle Normal left ventricular cavity size. Normal left ventricular systolic function. No regional wall motion abnormalities. Left ventricular ejection fraction is estimated at 66 %. Grade I/IV diastolic dysfunction (abnormal relaxation filling pattern), normal to mildly elevated filling pressures. Right Ventricle The right ventricle is normal in size and function. RVSP could not be calculated due to incomplete tricuspid regurgitation velocity profile. Right Atrium The right atrium is normal in size. Left Atrium The left atrium is normal in size. Mitral Valve Severely thickened mitral valve. Moderate mitral annular calcification. No mitral valve regurgitation. No mitral valve stenosis. Aortic Valve Severe aortic valve calcification. Mild aortic valve stenosis, mean gradient 3.3 mmHg, CHAIM 2.3 cm squared. No aortic valve regurgitation. Tricuspid Valve Structurally normal tricuspid valve without significant stenosis or regurgitation. Pulmonary artery systolic pressure is normal. Pulmonic Valve Structurally normal pulmonic valve without significant stenosis. There is no pulmonic regurgitation. Pericardium Normal pericardium without effusion. Aorta Normal ascending aorta dimension CONCLUSIONS 1-Normal left ventricular cavity size. Normal left ventricular systolic function. No regional wall motion abnormalities. Left ventricular ejection fraction is estimated at 66 %. Grade I/IV diastolic dysfunction (abnormal relaxation filling pattern), normal to mildly elevated filling pressures. 2-There is no pericardial effusion. 3-The right ventricle is normal in size and function. RVSP could not be calculated due to incomplete tricuspid regurgitation velocity profile. 4-When compared to the prior echocardiogram dated 09/09/2016 there appeared to be thickening of mitral valve and mild aortic valve stenosis. A&P Assessment and plan (1) Syncope: With multiple falls prior to admission. [place] secondary to orthostasis and/or medications. Status: Acute Qualifiers: Syncope type: unspecified Qualified Code(s): R55 - Syncope and collapse (2) Orthostatic hypotension: Initially felt to be volume more infection related but has persisted. Looking more like an autonomic insufficiency. Several medicines are still held such as Ambien and hydrocodone is decreased. Has been started on Midodrine at 5mg 3 times daily. Status: Acute (3) Amputated toe of left foot: Done in mid June after intervention for PAD. Had some dehiscence along the suture wound after amputation. He has been following in wound care clinic and been treated with antibiotics. Surgical site has not healed as well as hoped and he is also developed a new wound on the second digit. Status post repeat debridement by Dr. Leonardo on July 25. Fifth digit with eschar formation as well now. Status: Acute (4) PAD (peripheral artery disease): Status post CSI atherectomy of the SFA followed by [id number] balloon angioplasty, CSI atherectomy of the tibial peroneal trunk and left anterior tibial followed by balloon angioplasty, reconstruction of the arch of the foot which was completely occluded. Done 06/26/2019. Status: Chronic (5) End stage renal failure on dialysis: Peritoneal dialysis patient, nephrology following Status: Chronic (6) Peritoneal dialysis catheter in place: Status: Chronic (7) Malignant hypertension: Noted within the hospital a few weeks ago requiring initiation of multiple antihypertensives. During the course of the hospital stay blood pressures have trended upward again. Avoiding aggressive treatment secondary to the significant orthostasis. Status: Chronic (8) CAD (coronary artery disease): Prior stent, denies any symptoms recently beyond syncope. Has elevated troponin with value that is trending downward. I do not have comparative recent values but suspect has a chronic elevation. EKG with similar changes to previous from June with inferior and lateral changes. Repeat EKG reviewed today. Last stress test that I have available is from 2017. Status: Chronic (9) Diet-controlled type 2 diabetes mellitus: With recent hyperglycemia, which is probably contributing to wound healing challenges in addition to other comorbidities. Hemoglobin A1c was checked and is at 7.0. With vascular issues and wound healing needs, will need to initiate treatment. Have discussed with him preference for insulin in the setting of need for maximal control to promote wound healing. He is in agreement though not thrilled with it. Status: Chronic (10) Dyslipidemia: Chronically on a statin Status: Chronic (11) Acquired hypothyroidism: Chronically on levothyroxine, with drop in TSH noted over the last month. Normal free T4. Suspect related to sick euthyroid with what is acutely going on. He has been on the same dose of levothyroxine for quite some time according to review of external records. Status: Chronic (12) Renal mass: Has been present going back to at least 2017. Had followed with his scientist/engineer but has not had further formal evaluation due to inconsistencies on a repeat imaging study by patient's report. Will need outpatient work-up and this has been discussed with Dr. Berg. Status: Chronic (13) Anticoagulated: With apixaban, started mid-June with plan for 3 months of treatment secondary to reconstruction of the chronically occluded vascular arch of the left foot. Presently held due to planned debridement of foot wound. Status: Chronic Additional A&P Information Echocardiogram with thickened mitral valve and mild aortic valve stenosis with mean gradient of 3.3 mmHg and a valve area of 2.3 cm? Had dressing changed by Dr. Leonardo today Remains on antibiotics Is on 5 mg of midodrine 3 times daily without much improvement and orthostasis although his blood pressure is gradually trending upwards. Continuing to tolerate high blood pressures Not been out of bed much secondary to the orthostasis and I am hesitant to have him work with PT given the degree of orthostasis noted. Florinef has been considered but with diabetes and wound healing issues would not be an ideal option Remains off of home blockade but with improved heart rate Will need outpatient follow-up with cardiology, may need to consider inpatient consultation for management of hypertension in setting of severe orthostasis. Yissel held for debridement. Will resume when okay with Dr. Leonardo Peritoneal fluid and original urine specimen are negative final, blood cultures remain no growth to date, second urine culture is pending and cultures collected during debridement are pending Sed rate and CRP have been collected for future follow-up, ESR 95, CRP 53.2 Dr Salvador following for peritoneal dialysis and assistance with other management related to this which is much appreciated Will need outpatient follow-up with Dr. Berg to address renal mass Increase Levemir, continue corrective dose insulin. Plan is for insulin therapy at discharge which patient agrees to. Continue home statin On a decreased dose of home hydrocodone to 5 mg due to orthostasis Ambien held currently due to orthostasis. Alternatives will likely have similar risk to contribute to orthostasis and falls but will see if we can find something to help him Flexeril discontinue in light of continued orthostasis Patient is aware he should not be getting out of bed without assistance, even to bedside commode Plans discussed with patient and he was given an opportunity to ask questions. With degree of orthostasis, patient is at high risk of continued falls which limits his ability to care for himself at home. May have to consider some placement which might help with wound healing although I do not know if he will consider this. Beyond the orthostasis alternating with significant hypertension, he is looking better. Ideally would like to get him where he is safe getting up on his own prior to discharge, have a plan of care that he can follow-up for his foot wound and a medication plan that he can manage himself. He did tell me that he has a girlfriend who will be back up from [place] soon. She might be able to help him some. Supportive care otherwise Full code Attestations Medical Necessity Statement*: Requires ongoing inpatient stay for continued management of left foot wound and continued attempts to manage his severe orthostasis along with significant hypertension. At high risk of falls and really almost to a point that he is not able to adequately care for himself safely because of this. Plans are as indicated. Coding Level of Care Code Acute Veterinary Livestock Inspector for g Fwd Diagnoses Syncope R55 Syncope type: unspecified Orthostatic hypotension I95.1 Amputated toe of left foot S98.132A PAD (peripheral artery disease) I73.9 End stage renal failure on dialysis N18.6; Z99.2 Peritoneal dialysis catheter in place Z99.2 Malignant hypertension I10 CAD (coronary artery disease) I25.10 Diet-controlled type 2 diabetes mellitus E11.9 Dyslipidemia E78.5 Acquired hypothyroidism E03.9 Renal mass N28.89 Anticoagulated Z79.01
--- NOTE | 2019-07-27 19:42 | PC.NURSE ---
Patient's blood pressure 202/98. Nurse been notified.
[2019-07-27] MEDS: hyDRALAzine 20 mg/mL INJ 1 mL 10 MG IVP (19:48)
[2019-07-27 21:27] LABS: Glucose Point of Care 232 mg/dL (70-110)
[2019-07-27] MEDS: atorvastatin 40 mg Tablet 20 MG PO (23:26)
[2019-07-28] VITALS (9 sets, daily range): BP systolic 86–200; BP diastolic 52–110; PULSE 64–144; RESP 18–22; TEMP 36.4–37.1; O2SAT 96–99
[2019-07-28] MEDS: Dianeal low Ca w/1.5% dex 2,000 mL Bag 2000 ML INTRAPERIT ×2 (01:30→13:25)
[2019-07-28 03:16] LABS: Basophils # 0.1 10^3/uL (0.0-0.1); Basophils % 0.6 %; Eosinophils # 0.2 10^3/uL (0.0-0.8); Hematocrit 38.2 % (42.0-52.0); Hemoglobin 12.2 g/dL (11.7-16.6); Lymphocytes # 1.7 10^3/uL (0.8-4.8); Lymphocytes % 8.8 %; Mean Corpuscular HGB Conc 31.9 g/dL (30.0-36.0); Mean Corpuscular Hemoglobin 29.5 pg (28.0-34.0); Mean Corpuscular Volume 92.5 fL (80-94); Mean Platelet Volume 8.7 fL (7.4-10.4); Monocytes # 1.2 10^3/uL (0.2-0.9); Monocytes % 6.4 %; Neutrophils # 15.5 10^3/uL (1.8-7.7); Neutrophils % 82.1 %; Nucleated Red Blood Cells % 0 %; Platelet Count 406 10^3/cmm (130-400); Red Blood Count 4.13 10^6/uL (4.1-5.3); Red Cell Distribution Width 13.6 % (12.1-15.1); White Blood Count 18.8 10^3/uL (4.0-10.0)
[2019-07-28] MEDS: piperacillin-tazobactam 2.25 GM in sodium chloride 0.9% (plus) 50 ML IV ×2 (03:22→08:38)
[2019-07-28] MEDS: HYDROcodone-acetaminophen 10-325 mg Tablet 1 TAB PO ×3 (03:24→13:26)
[2019-07-28 03:36] LABS: Alanine Aminotransferase 7 U/L (0-41); Albumin Level 3.3 g/dL (3.5-5.2); Alkaline Phosphatase 104 IU/L (40-130); Anion Gap 22.5 (5-19); Aspartate Amino Transferase 9 U/L (0-40); Blood Urea Nitrogen 41 mg/dL (6-20); Carbon Dioxide 24 mmol/L (22-29); Chloride 92 mmol/L (98-107); Globulin 3.6 g/dL (1.3-4.6); Glomerular Filtration Rate 5.9 mL/min (90-130); Glucose 163 mg/dL (65-115); Osmolality Calculated 281 mOsm/kg (285-295); Phosphorus 5.8 mg/dL (2.5-4.5); Potassium 3.5 mmol/L (3.5-5.1); Sodium 135 mmol/L (136-145); Total Bilirubin 0.3 mg/dL (0.15-1.2); Total Protein 6.9 g/dL (6.6-8.7)
[2019-07-28 03:37] LABS: Vancomycin Trough 10.2 ug/mL (10-15)
[2019-07-28] MEDS: vancomycin 1,000 MG in sodium chloride 0.9% 250 ML 250 MG IV (04:15)
[2019-07-28] MEDS: phenazopyridine 100 mg Tablet PO ×2 (04:23→10:21)
[2019-07-28] MEDS: levoFLOXacin 250 mg Tablet PO (05:56)
[2019-07-28] MEDS: Dianeal low Ca w/2.5% dex 2,000 mL Bag 2000 ML INTRAPERIT ×2 (06:34→17:21)
[2019-07-28 06:40] LABS: Erythrocyte Sedimentation Rate 95 mm/hr (0-10)
[2019-07-28] MEDS: levothyroxine 100 mcg Tablet PO (08:36)
[2019-07-28] MEDS: midodrine 5 mg TABLET PO ×2 (08:37→17:20)
[2019-07-28] MEDS: pantoprazole DR 40 mg Tablet PO (08:37)
--- NOTE | 2019-07-28 10:21 | PM.PN ---
Subjective Subjective: Interval history: Some discomfort in the foot. PD is going well with clear effluent, painless dwells and drains. No edema and no other volume assoc Sx. Hemodynamics are reviewed. Medications: Reviewed: Yes Medication Review Details: Current Medications Acetaminophen (Tylenol) 650 mg PO Q6H PRN PRN Reason: Mild/Mod Pain Or Temp >/= 101 Last Admin: 07/25/19 23:39 Dose: 650 mg Documented by: Atorvastatin Calcium (Lipitor) 20 mg PO BEDTIME THEA Last Admin: 07/25/19 21:54 Dose: 20 mg Documented by: Bisacodyl (Dulcolax) 20 mg PO DAILY PRN PRN Reason: CONSTIPATION Last Admin: 07/24/19 21:10 Dose: 20 mg Documented by: Cyclobenzaprine HCl (Flexeril) 10 mg PO BID PRN PRN Reason: Muscle Pain Dextrose (D50w) 25 ml IVP ONCE PRN; Protocol PRN Reason: hypoglycemia protocol Dextrose (D50w) 50 ml IVP PRN PRN; Protocol PRN Reason: hypoglycemia protocol Glucagon (Glucagen) 1 mg IM ONCE PRN; Protocol PRN Reason: Adult Acute Hypoglycemia Prot. Hydralazine HCl (Apresoline) 10 mg IVP Q4H PRN PRN Reason: SBP > 185 or DBP > 100 Dextrose (D5w) 500 mls @ 100 mls/hr IV ONCE PRN; Protocol PRN Reason: Adult Acute Hypoglycemia Prot Piperacillin Sod/Tazobactam (Sod 2.25 gm/ Sodium Chloride) 50 mls @ 12.5 mls/hr IV Q8H THEA; Protocol Last Admin: 07/26/19 05:40 Dose: 12.5 mls/hr Documented by: Vancomycin HCl 1,000 mg/ (Sodium Chloride) 250 mls @ 250 mls/hr IV Q72H THEA Insulin Aspart (Novolog) 0 unit SUBCUT TIDWM THEA; Protocol Last Admin: 07/25/19 17:34 Dose: 4 unit Documented by: Insulin Aspart (Novolog) 0 unit SUBCUT BEDTIME THEA; Protocol Last Admin: 07/25/19 21:55 Dose: 1 unit Documented by: Insulin Detemir (Levemir) 5 unit SUBCUT BEDTIME THEA Last Admin: 07/25/19 21:55 Dose: 5 unit Documented by: Lactulose (Constulose) 20 gm PO Q6H PRN PRN Reason: CONSTIPATION Last Admin: 07/25/19 08:22 Dose: 20 gm Documented by: Levothyroxine Sodium (Synthroid) 100 mcg PO DAILY [facility] Last Admin: 07/25/19 08:26 Dose: 100 mcg Documented by: Midodrine (Proamatine) 5 mg PO TID [facility] Last Admin: 07/25/19 21:53 Dose: 5 mg Documented by: Nitroglycerin (Nitrostat) 0.4 mg SUBLINGUAL Q5M PRN PRN Reason: Chest Pain Ondansetron HCl (Zofran) 4 mg IVP Q8H PRN PRN Reason: vomiting, or N/V if npo Last Admin: 07/25/19 09:59 Dose: 4 mg Documented by: Peritoneal Dialysis Solution (Dianeal Low Ca W/1.5% Dex) 2,000 ml INTRAPERIT QID [facility] Last Admin: 07/26/19 00:15 Dose: 2,000 ml Documented by: Phenazopyridine HCl (Pyridium) 100 mg PO TID PRN PRN Reason: DYSURIA Last Admin: 07/26/19 02:07 Dose: 100 mg Documented by: Senna/Docusate Sodium (Senna-S) 1 tab PO BID [facility] Last Admin: 07/25/19 17:17 Dose: Not Given Documented by: Vitals/I&O/Wt Last Vital Signs Temp 97.9 F 07/28/19 08:33 Pulse 106 H 07/28/19 10:00 Resp 22 H 07/28/19 08:33 BP 168/98 07/28/19 10:00 Pulse Ox 99 07/28/19 08:00 07/27/19 07/28/19 07/28/19 22:59 06:59 14:59 Intake Total 290 / 940 870 / 1810 290 / 290 Output Total 70 / 70 Balance 290 / 940 800 / 1740 290 / 290 Weight last 48 hrs Weight 84.397 kg Weight 84.397 kg Weight 86.682 kg Weight 907.185 kg Physical Exam Narrative: EXAM NARRATIVE: NARD in bed vs noted bP elevated supine heent- nc/at, eomi, anicteric neck- no jvp lungs clear heart reg, +VIKTORIYA abd soft, nt, nd, +BS, + PD catheter neuro- dec sensation in feet ext- no edema left foot bandaged by 4 th toe amp site, eschars Data : 07/28/19 02:39 07/28/19 02:39 Micro: Microbiology 07/25/19 03:50 Gram Stain - Final Peritoneal Fluid Body Fluid Culture - Preliminary Coagulase negativ staphylococc 07/26/19 15:40 Gram Stain - Final Foot - #1 Tissue Culture - Preliminary Coagulase negativ staphylococc 07/26/19 15:49 Gram Stain - Final Foot - #2 Tissue Culture - Preliminary Coagulase negativ staphylococc 07/26/19 14:20 Urine Culture - Preliminary Urine Catheterized A&P Additional A&P Information 1. ESRD on PD - CAPD prescription; 4 x 2L exchanges 2.5% alt 4.25% - No changes, this is going well - does meds for eGFR < 15 on PD 2. S/p debridement of the foot - per Dr Leonardo and Dr Gr - wound care - mobilization as tolerated - Vanco and Bimal on board - some concern about ongoing PVD 3. Hemodynamics are robust - on midodrine for orthostasis 4. 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 Lytes look good, well balanced - no new changes to his care from my perspective today - interview and exam performed via telemed using the assistance of the bedside RN Attestations Medical Necessity Statement*: PD mgmt Coding Level of Care Code Acute Bundling Machine Operator for Fabian Pak
[2019-07-28 10:35] LABS: Glucose Point of Care 168 mg/dL (70-110)
--- NOTE | 2019-07-28 14:07 | PC.NURSE ---
Pt has no IV access at this time is aware.
--- NOTE | 2019-07-28 14:49 | PC.NURSE ---
ELECTRIC MOTORS SALESPERSON came and informed card writer hand that pt refused his orthostatic vital signs at this time.
--- NOTE | 2019-07-28 15:42 | P.PN_ITS ---
Vitals/I&O/Wt Last Vital Signs Temp 98.2 F 07/28/19 15:05 Pulse 95 07/28/19 15:05 Resp 18 07/28/19 15:05 BP 200/110 07/28/19 15:05 Pulse Ox 99 07/28/19 15:05 07/28/19 07/28/19 07/28/19 06:59 14:59 22:59 Intake Total 870 / 1810 650 / 650 Output Total 70 / 70 Balance 800 / 1740 650 / 650 Weight last 48 hrs Weight 84.397 kg Weight 84.397 kg Weight 86.682 kg Weight 907.185 kg Data : 07/28/19 02:39 07/28/19 02:39 Micro: Microbiology 07/27/19 09:32 Urine Culture - Preliminary Urine,Clean Catch 07/26/19 14:20 Urine Culture - Final Urine Catheterized 07/25/19 03:50 Gram Stain - Final Peritoneal Fluid Body Fluid Culture - Preliminary Coagulase negativ staphylococc 07/26/19 15:40 Gram Stain - Final Foot - #1 Tissue Culture - Preliminary Coagulase negativ staphylococc 07/26/19 15:49 Gram Stain - Final Foot - #2 Tissue Culture - Preliminary Coagulase negativ staphylococc Coding Level of Care Code Acute Coagulation Operator for Chg Mellisa
[2019-07-28 16:57] LABS: Glucose Point of Care 204 mg/dL (70-110)
--- NOTE | 2019-07-28 17:58 | P.DS_ITS ---
Discharge Providers Date of Admission: 07/25/19 13:06 Date of Discharge: July 28, 2019 Attending Provider at Admission: Malena Bacon MD Attending Provider at Discharge: Malena Bacon MD Primary Care Provider: ENRIQUE Ramirez Diagnoses at Discharge Discharge Diagnosis (1) Syncope: Status: Acute Qualifiers: Syncope type: unspecified Qualified Code(s): R55 - Syncope and collapse (2) Orthostatic hypotension: Status: Acute (3) Amputated toe of left foot: Status: Acute Problem details: due to gangrene 06/27/2019 (4) PAD (peripheral artery disease): Status: Chronic Problem details: With critical lower limb ischemia 06/2019 requiring intervention with CSI atherectomy of the SFA followed by [id number] balloon angioplasty, CSI atherectomy of the tibial peroneal trunk and left anterior tibial followed by balloon angioplasty, reconstruction of the arch of the foot which was completely occluded. (5) End stage renal failure on dialysis: Status: Chronic Problem details: Peritoneal dialysis (6) Peritoneal dialysis catheter in place: Status: Chronic (7) Malignant hypertension: Status: Chronic (8) CAD (coronary artery disease): Status: Chronic Problem details: Cardiac stent x1 (9) Diet-controlled type 2 diabetes mellitus: Status: Inactive Problem details: Has been diet controlled since significant weight loss. Treatment restarted July 2019 to facilitate wound healing and in light of hemoglobin A1c of 7.0. (10) Dyslipidemia: Status: Chronic (11) Acquired hypothyroidism: Status: Chronic (12) Diabetes mellitus, type II: Status: Chronic Problem details: Has been diet controlled since significant weight loss. Treatment restarted July 2019 to facilitate wound healing and in light of hemoglobin A1c of 7.0. Qualifiers: Diabetes mellitus termite treater helper insulin use: with fci use Diabetes mellitus complication status: with circulatory complication Diabetes mellitus complication detail: with peripheral angiopathy with gangrene Qualified Code(s): E11.52 - Type 2 diabetes mellitus with diabetic peripheral angiopathy with gangrene; Z79.4 - [facility] (current) use of insulin (13) Anticoagulated: Status: Chronic Problem details: With apixaban, started mid-June with plan for 3 months of treatment secondary to reconstruction of the chronically occluded vascular arch of the left foot (14) Renal mass: Status: Chronic Reason for Visit Reason for Visit: GENERAL WEAKNESS, SYNCOPE, DEHYDRATION Hospital Course Hospital Course: Mr. Kearns presented with multiple episodes of syncope in the 24 hours preceding admission. He also had some weakness. He has had recent evaluation of gangrenous toe and was found to have critical limb ischemia. He underwent vascular intervention by Dr. Gr and subsequently had amputation of the fourth toe on the left foot by Dr. Leonardo. He has been followed at the wound care clinic. He was initially admitted to observation status because of the syncope and what appeared to be clinical dehydration. Nephrology was consulted. He was covered empirically with antibiotics vancomycin and Zosyn because of the wound on his foot. He also received some low volume IV fluids. Blood pressures were quite labile ranging from lows in the 60-80s systolic to highs of 180s sytolic throughout the hospital stay. If pressures are checked only with patient in a supine position or sitting you do not notice the extent of the lability. He was significantly orthostatic with drops in systolic pressure at times more than 80 mmHg. Midodrine was started at 5 mg 3 times a day. High blood pressures were tolerated to decrease severity of orthostasis. Medications were held or decreased such as Ambien, hydrocodone, Flexeril, all antihypertensive agents. Patient was instructed not to take sildenafil in particular if he had taken any nitroglycerin and was also warned that nitroglycerin could have further impact on his blood pressures leading to risk of syncope and falling down. He had been started on several antihypertensives during his prior hospital stay due to malignant hypertension with pressures ranging 170s to 190 systolic in a supine position. Upon outpatient follow-up, most of these medicines had been stopped due to hypotension which was noted. He continued to demonstrate episodes of significant orthostasis however was gradually less symptomatic from this. Physical therapy worked with him. Arrangements were made for a walker with a hand break which he was instructed to use with all ambulation to minimize the risk of falls. He was able to go more than 20 feet without any symptoms from his orthostasis and eventually was felt stable for discharge from this standpoint although continues to be at risk for falls and syncope. He should be allowed higher blood pressures at rest at least until an alternative treatment plan or other evaluation is arranged from either nephrology or cardiology. He has been followed by cardiology outpatient already and I recommended that he see them in addition to behavioral sciences instructor. He did have an echocardiogram done during this hospital stay which showed normal left ventricular size and systolic function with no regional wall motion abnormalities. Ejection fraction was estimated at 66% with grade 104 diastolic dysfunction/abnormal relaxation filling pattern noted. He had some thickening of the mitral valve and mild aortic valve stenosis noted. Mean gradient across the aortic valve was 3 mmHg with a valve area of 2.3 cm?. Cardiac enzymes were checked during the hospital stay and showed troponin elevation. Review of records showed somewhat of a chronic troponin elevation and EKGs did not show any new changes. He did not have a positive delta. He tolerated peritoneal dialysis ordered during the hospital stay and will resume his usual peritoneal dialysis regimen upon return home. In terms of the wound on his foot, it was evaluated by Dr. Leonardo. He took Mr. Kearns for surgery on July 25 for surgical debridement of devitalized soft tissue, tendon and bone from the amputation site at the left fourth toe. Cul tures were sent and were pending at the time of discharge. He is being continued on Levaquin at renal dosing. He is to keep follow-up at wound care clinic. There is concern of significant arterial insufficiency at the fifth digit and he may require further procedures down the road. This was explained to him by both Dr. Leonardo and myself. One benefit of the walker that we obtained for him due to the orthostasis is that it will have a chair or seat and he can put his left leg on this to minimize walking too much on his left foot. There was some concern about patient having urinary tract infection based on urinalysis initially obtained. Nephrology requested a catheterized specimen. A catheterized specimen was difficult to obtain and patient complained of dysuria/burning urination quite significantly after this. With approval from nephrology, he did receive some Pyridium with a little bit of improvement. Urine culture was no growth final. I suspect it was a concentrated specimen as he did describe decreased amount of urine output lately associated with dehydration. Patient was found to have a renal mass on imaging studies. I discussed the case with Dr. Berg who said it was appropriate for him to follow-up in the outpatient setting. This had been identified some years ago but repeat study, likely an ultrasound in the outpatient setting, did not reveal the same abnor mality and he is never had biopsy or further evaluation. I explained to him the importance of follow-up with urology in this regards. Should he continue to have significant dysuria issues that can be addressed with urology follow-up as well. I am not sure he will ever allow a catheter to be placed again. Review of records over the last couple of months shows that patient's hemoglobin A1c in mid June was up to 7. With the significant vascular issues and wound healing issues, my recommendation was to restart patient on insulin therapy to allow for optimization of those measures which might promote wound healing for him. He was agreeable to this although not thrilled. Levemir was started at once daily dosing. A glucometer and glucometer strips were also ordered and he was asked to check blood sugars at varying times of day (before breakfast, before lunch, before dinner and at bedtime), at least 2 checks a day and take them with him upon hospital follow-up to his primary care provider so that diabetic regimen can be adjusted further. Patient was started on apixaban because of the vascular intervention to his left foot. It was held for surgical intervention and restarted them. Plan was for him to be on apixaban for at least [address] Gr's notes. At discharge, patient was looking better generally speaking, not as tired appearing with a less ill appearance. Lungs were clear. He had a regular rhythm. PD catheter was intact. Dressing was intact to his left foot. He had eschar formation on the medial side of his fifth digit on the left foot that ex tended to the medial side of the third digit at least prior to debridement. I did not remove the dressing to see the full extent of the wound. Capillary refill in all the toes was right at 3 seconds. There were no red streaks up the leg but there was some erythema extending about 5 to 7 mm from the wound base prior to debridement. Patient is to follow wet to dry dressing changes as per instructions provided by Dr. Leonardo. It is possible that progressive infection in the left foot contributed to the dehydration and syncope at presentation but I do think he has probably had orthostasis for a while related to autonomic insufficiency and it was exacerbated when he was recently started on antihypertensive agents. Discharge Data Data Completed and Pending: Completed Studies During Hospitalization Category Date Time Status CT chest abd pel wo con Urgent Cat Scan 07/24/19 12:[address] lumbar spine w o con* [id number] Urgen t Cat Scan 07/24/19 12:[address] thoracic spin wo con* [id number] Urge nt Cat Scan 07/24/19 12:09 Completed XR foot LT min 3V * [id number] Routine Exams 07/25/19 13:07 Completed CV echo complete* [id number] Routine Ultrasound 07/26/19 17:21 Completed Pending at discharge Category Date Time Status Blood Culture Sta t Lab 07/24/19 12:30 Results Body Fluid Cultur e & GS Routine Lab 07/24/19 03:50 Results Tissue Culture an d Gram Stain Stat Lab 07/26/19 15:40 Results Tissue Culture an d Gram Stain Stat Lab 07/26/19 15:49 Results Urine Culture Rou parvez Lab 07/27/19 09:32 Results Labs from last 24 hours 07/28/19 07/28/19 07/28/19 16:55 10:28 02:39 WBC RBC Hgb Hct MCV MCH MCHC RDW Plt Count MPV Neut % (Auto) Lymph % (Auto) [place] % (Auto) Eos % (Auto) Baso % (Auto) Neut # (Auto) Lymph # (Auto) [place] # (Auto) Eos # (Auto) Baso # (Auto) Nucleated RBC % (a uto) Nucleated RBCs # ESR Sodium Potassium Chloride Carbon Dioxide Anion Gap BUN Creatinine GFR Calculation Glucose POC Glucose 204 168 Calculated Osmolal ity Calcium Phosphorus Magnesium Total Bilirubin AST ALT Alkaline Phosphata se C-Reactive Protein 24.0 H Total Protein Albumin Globulin Vancomycin Trough 07/28/19 07/28/19 07/28/19 02:39 02:39 02:39 WBC 18.8 H RBC 4.13 Hgb 12.2 Hct 38.2 L MCV 92.5 MCH 29.5 MCHC 31.9 RDW 13.6 Plt Count 406 H MPV 8.7 Neut % (Auto) 82.1 Lymph % (Auto) 8.8 [place] % (Auto) 6.4 Eos % (Auto) 1.0 Baso % (Auto) 0.6 Neut # (Auto) 15.5 H Lymph # (Auto) 1.7 [place] # (Auto) 1.2 H Eos # (Auto) 0.2 Baso # (Auto) 0.1 Nucleated RBC % (a uto) 0 Nucleated RBCs # 0.0 ESR 95 H Sodium 135 L Potassium 3.5 Chloride 92 L Carbon Dioxide 24 Anion Gap 22.5 H BUN 41 H Creatinine 9.4 H* GFR Calculation 5.9 L Glucose 163 H POC Glucose Calculated Osmolal ity 281 L Calcium 9.0 Phosphorus 5.8 H Magnesium 2.0 Total Bilirubin 0.3 AST 9 ALT 7 Alkaline Phosphata se 104 C-Reactive Protein Total Protein 6.9 Albumin 3.3 L Globulin 3.6 Vancomycin Trough 07/28/19 07/27/19 02:39 21:24 WBC RBC Hgb Hct MCV MCH MCHC RDW Plt Count MPV Neut % (Auto) Lymph % (Auto) [place] % (Auto) Eos % (Auto) Baso % (Auto) Neut # (Auto) Lymph # (Auto) [place] # (Auto) Eos # (Auto) Baso # (Auto) Nucleated RBC % (a uto) Nucleated RBCs # ESR Sodium Potassium Chloride Carbon Dioxide Anion Gap BUN Creatinine GFR Calculation Glucose POC Glucose 232 Calculated Osmolal ity Calcium Phosphorus Magnesium Total Bilirubin AST ALT Alkaline Phosphata se C-Reactive Protein Total Protein Albumin Globulin Vancomycin Trough 10.2 Vitals: Last Vital Signs Temp 98.2 F 07/28/19 15:05 Pulse 95 07/28/19 15:05 Resp 18 07/28/19 15:05 BP 200/110 07/28/19 15:05 Pulse Ox 99 07/28/19 15:05 Discharge Plan Discharge Patient Disposition: Home, Self-Care Condition: Stable Prescriptions: New midodrine 5 mg Tablet 5 mg PO TID Qty: 90 RF: 0 bisacodyl 5 mg Tablet,Delayed Release (Dr/Ec) 10 mg PO DAILY PRN (Reason: Constipation) Qty: 0 RF: 0 sennosides-docusate sodium 8.6-50 mg Tablet 1 tab PO BID Qty: 60 RF: 0 Levemir FlexTouch U-100 Insuln 100 unit/mL (3 mL) insulin pen 8 unit SUBCUT QPM Qty: 15 RF: 0 (DME) glucometer See Rx Instructions .Route .MEDSUPPLY Qty: 1 RF: 0 (DME) glucometer strips See Rx Instructions .Route .MEDSUPPLY Qty: 100 RF: 0 Continued hydrocodone-acetaminophen 10-325 mg tablet 1 tab PO Q4H PRN (Reason: Pain) RF: 0 nitroglycerin [Nitrostat] 0.4 mg tablet, sublingual 0.4 mg SUBLINGUAL Q5M PRN (Reason: Chest Pain) RF: 0 levothyroxine 112 mcg tablet 112 mcg PO DAILY Qty: 90 RF: 0 atorvastatin 20 mg tablet 20 mg PO BEDTIME RF: 0 Eliquis 5 mg Tablet 2.5 mg PO BID Qty: 60 RF: 3 levofloxacin 250 mg tablet 250 mg PO Q24H Qty: 5 RF: 0 Held sildenafil [Viagra] 100 mg tablet 100 mg PO DAILY PRN (Reason: sexual activity) 30 Days Qty: 6 RF: 5 Hold Instructions: holding secondary acute issues and risks of severe hypotension Discontinued cetirizine [Zyrtec] 10 mg tablet 10 mg PO DAILY Qty: 30 RF: 0 cyclobenzaprine 10 mg Tablet 10 mg PO BID PRN (Reason: Muscle Pain) RF: 0 zolpidem 10 mg tablet 10 mg PO BEDTIME RF: 0 Discharge Orders: Discharge Order (Routine); Ordered 07/28/19 Ordered By: Malena Bacon Other Ambulatory Orders: DME: Walker (Order) Location: None Selected Ordered By: Malena Bacon Referrals: Nephrology, Doctor [Other] - 2 weeks Cresencio Berg MD [Physician] - 1 month (or first available new patient for renal mass. Faxed information to the office and they will call you with an appointment.) Freda Summers FNP-C [Primary Care Provider] - 4-7 days (Faxed information to the clinic and they will call you with a date and time for an appointment.) Yesica Medina MD [Physician] - (as previously scheduled ) WOUND [facility]ARE CLIN[facility], [Staff Physician] - 4-7 days (Dr. Leonardo. Faxed information to the clinic and they will call you with a date and time for an appointment. ) Discharge Activity: Use walker/crutches as instructed Patient Instructions: Laxative, Stimulant (By mouth), Midodrine (By mouth), Laxative, Stimulant Combination (By mouth), Insulin Detemir (Injection), Syncope (DC), How to Check Your Blood Sugar (DC), Hypotension (DC), Diabetic Hyperglycemia (DC) Activity Restrictions/Additional Instructions: Resume usual peritoneal dialysis schedule Consistent carbohydrate renal diet Use walker at all times as instructed Slow with position changes secondary to severe orthostasis Must keep follow-up in wound care clinic as instructed by Dr. Leonardo Wet-to-dry dressing changes currently daily as you have been previously instructed Antihypertensive medications are held currently secondary to severe orthostasis, we are allowing higher blood pressures to decrease risk of repeated falls Check blood sugar and keep a record of measurements Insulin has been restarted as hemoglobin A1c has crept upward 7.0 in June. With vascular problems and need for wound healing, need to maximize blood sugar control. In addition to follow up at wound care clinic, need to see PCP for diabetes management, nephrology and cardiology regarding orthostasis in addition to ususal followup and urology for renal mass. Discharge Date/Time: 07/28/19 19:08 Discharge Attestations Time Spent in Discharge Care*: greater than 30 min Quality Metrics Clinical Quality Measures During this hospital stay, did patient experience: None Coding Level of Care Code Acute Flour Inspector for Fabian Leonardd Diagnoses Syncope R55 Syncope type: unspecified Orthostatic hypotension I95.1 Amputated toe of left foot S98.132A PAD (peripheral artery disease) I73.9 End stage renal failure on dialysis N18.6; Z99.2 Peritoneal dialysis catheter in place Z99.2 Malignant hypertension I10 CAD (coronary artery disease) I25.10 Diet-controlled type 2 diabetes mellitus E11.9 Dyslipidemia E78.5 Acquired hypothyroidism E03.9 Diabetes mellitus, type II E11.52; Z79.4 Diabetes mellitus termite treater helper insulin use: with termite treater helper use Diabetes mellitus complication status: with circulatory complication Diabetes mellitus complication detail: with peripheral angiopathy with gangrene Anticoagulated Z79.01 Renal mass N28.89
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
[2019-07-28 21:11] LABS: Glucose Point of Care 196 mg/dL (70-110)
== END 2019-07-28 19:08 | disposition home or self-care (01) | DRG 981 ==
LOC: ER 14:18 → MEDSURG 15:14
PROVIDERS: Emergency Medicine; Internal Medicine Nephrology; Thoracic Surgery (Cardiothoracic Vascular Surgery); Admitting Provider Hospitalist; PCP Nurse Practitioner Family; Visit Provider Hospitalist
PROC: 0QBR0ZZ Excision of Left Toe Phalanx, Open Approach (ICD-10-PCS; principal; 2019-07-26 15:00)
DX: E11.52 Type 2 diabetes mellitus with diabetic peripheral angiopathy with gangrene (principal); N18.6 End stage renal disease; I12.0 Hypertensive chronic kidney disease with stage 5 chronic kidney disease or end stage renal disease; I96 Gangrene, not elsewhere classified; N39.0 Urinary tract infection, site not specified; I95.1 Orthostatic hypotension; E11.621 Type 2 diabetes mellitus with foot ulcer; Z89.422 Acquired absence of other left toe(s); E11.22 Type 2 diabetes mellitus with diabetic chronic kidney disease; Z99.2 Dependence on renal dialysis; I25.10 Atherosclerotic heart disease of native coronary artery without angina pectoris; Z95.5 Presence of coronary angioplasty implant and graft; E78.5 Hyperlipidemia, unspecified; E03.9 Hypothyroidism, unspecified; Z79.01 Long term (current) use of anticoagulants; N28.89 Other specified disorders of kidney and ureter; E86.0 Dehydration; R29.6 Repeated falls; F41.8 Other specified anxiety disorders; I99.8 Other disorder of circulatory system; E55.9 Vitamin D deficiency, unspecified; Z87.891 Personal history of nicotine dependence; E11.42 Type 2 diabetes mellitus with diabetic polyneuropathy; K59.00 Constipation, unspecified; L97.529 Non-pressure chronic ulcer of other part of left foot with unspecified severity
CPT/HCPCS: 12345; 36415; 36416; 71250; 72128; 72131; 73630; 74176; 80048; 80053; 80202; 80500; 81001; 82310; 82962; 83605; 83690; 83735; 83970; 84100; 84145; 84439; 84443; 84484; 85025; 85651; 86140; 86850; 86900; 87040; 87070; 87075; 87077; 87086; 87176; 87186; 87205; 89050; 90935; 93005; 93306; 96372; 96374; 96375; 97116; 97161; 99283; G0378; J0360; J1644; J1815; J2001; J2270; J2405; J2543; J2704; J3010; J3370; J7030; J7050; Q3014

== ENCOUNTER 2019-07-31 13:18 | Outpatient (CLI) | payer MEDICARE, MEDICAID, SELFPAY | END 2019-07-31 13:19 | disposition home or self-care (01) | LOC: WOUND 13:26 | PROVIDERS: PCP Nurse Practitioner Family; Visit Provider Thoracic Surgery (Cardiothoracic Vascular Surgery) | DX: E11.621 Type 2 diabetes mellitus with foot ulcer (principal); L97.522 Non-pressure chronic ulcer of other part of left foot with fat layer exposed | CPT/HCPCS: 11042 ==

== ENCOUNTER 2019-08-07 09:39 | Outpatient (CLI) | payer MEDICARE, MEDICAID, SELFPAY | END 2019-08-07 09:40 | disposition home or self-care (01) | LOC: WOUND 09:46 | PROVIDERS: PCP Nurse Practitioner Family; Visit Provider Thoracic Surgery (Cardiothoracic Vascular Surgery) | DX: E11.621 Type 2 diabetes mellitus with foot ulcer (principal); L97.522 Non-pressure chronic ulcer of other part of left foot with fat layer exposed | CPT/HCPCS: 11044; 81000 ==

== ENCOUNTER 2019-08-14 10:06 | Outpatient (CLI) | payer MEDICARE, MEDICAID, SELFPAY | END 2019-08-14 10:07 | disposition home or self-care (01) | LOC: WOUND 10:07 | PROVIDERS: PCP Nurse Practitioner Family; Visit Provider Thoracic Surgery (Cardiothoracic Vascular Surgery) | DX: E11.621 Type 2 diabetes mellitus with foot ulcer (principal); L97.524 Non-pressure chronic ulcer of other part of left foot with necrosis of bone | CPT/HCPCS: 11044; L3260 ==

== ENCOUNTER 2019-08-19 23:19 | Emergency (ER) | payer OTHER, MEDICARE, MEDICAID, SELFPAY ==
[2019-08-19 23:24] VITALS: BP 148/76; PULSE 112; RESP 20; TEMP 36.7; O2SAT 95; BMI 26.6
[2019-08-19 23:35] VITALS: BP 148/76; PULSE 110; RESP 17; O2SAT 95
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
[2019-08-20 00:25] VITALS: RESP 18
[2019-08-20] MEDS: fentaNYL 50 mcg/mL INJ 2mL IVP (00:25)
[2019-08-20] MEDS: ondansetron 2 mg/ML SDV 2 mL 4 MG IVP ×2 (00:25→02:51)
[2019-08-20 00:32] VITALS: BP 186/98; PULSE 104; RESP 19; O2SAT 100
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
[2019-08-20 01:13] VITALS: RESP 18
[2019-08-20] MEDS: HYDROmorphone 1 mg/mL INJ 1 mL IVP ×3 (01:13→03:26)
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
[2019-08-20 01:25] LABS: Basophils % 0.3 %; Eosinophils % 0.1 %; Hemoglobin 10.2 g/dL (11.7-16.6); Lymphocytes # 0.4 10^3/uL (0.8-4.8); Lymphocytes % 3.5 %; Mean Corpuscular HGB Conc 31.9 g/dL (30.0-36.0); Mean Corpuscular Volume 94.1 fL (80-94); Mean Platelet Volume 9.4 fL (7.4-10.4); Monocytes % 7.6 %; Neutrophils % 87.6 %; Nucleated Red Blood Cells % 0 %; Platelet Count 349 10^3/cmm (130-400); Red Cell Distribution Width 13.5 % (12.1-15.1); White Blood Count 12.6 10^3/uL (4.0-10.0)
[2019-08-20] MEDS: iodixanol 320 mg/mL 100mL Btl IV (01:41)
[2019-08-20 01:42] LABS: Alanine Aminotransferase 7 U/L (0-41); Albumin Level 3.2 g/dL (3.5-5.2); Alkaline Phosphatase 97 IU/L (40-130); Aspartate Amino Transferase 10 U/L (0-40); Blood Urea Nitrogen 31 mg/dL (6-20); Calcium 9.1 mg/dL (8.5-10.5); Carbon Dioxide 19 mmol/L (22-29); Chloride 82 mmol/L (98-107); Globulin 3.7 g/dL (1.3-4.6); Glomerular Filtration Rate 5.5 mL/min (90-130); Glucose 279 mg/dL (65-115); Osmolality Calculated 273 mOsm/kg (285-295); Sodium 128 mmol/L (136-145); Total Bilirubin 0.4 mg/dL (0.15-1.2); Total Protein 6.9 g/dL (6.6-8.7)
--- NOTE | 2019-08-20 02:11 | ECG_ITS ---
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 Measurements Intervals [place] Rate: 109 P: IN: -1 QRS: -20 QRSD: 103 T: 80 QT: 352 QTc: 475 Interpretive Statements Sinus tachycardia with a first-degree AV block SEPTAL MYOCARDIAL INFARCTION , OF INDETERMINATE AGE [40+ ms Q WAVE IN V1/V2] INFERIOR MYOCARDIAL INFARCTION , PROBABLY OLD [40+ ms Q WAVE AND/OR ST/T ABNORMALITY IN II/aVF] Nonspecific ST-T changes Compared to ECG 07/25/2019 18:28:25 Sinus tachycardia no longer present Myocardial infarct finding still present Electronically Signed On 08-20-2019 21:39:08 CDT by Jessica Torrez M.D. [id number]
[2019-08-20 02:12] VITALS: RESP 22; O2SAT 99
[2019-08-20 02:27] VITALS: BP 154/73; PULSE 73; RESP 16; O2SAT 97
[2019-08-20] MEDS: sodium chlor 0.9% + KCl 40 mEq 40 MEQ/1,000 ML BAG 1000 MEQ IV (02:56)
[2019-08-20] MEDS: hyDRALAzine 20 mg/mL INJ 1 mL IVP (03:22)
[2019-08-20] MEDS: haloperidol inj 5 mg/mL INJ 1 mL 3 MG IVP (03:23)
[2019-08-20 03:39] VITALS: BP 194/112; PULSE 84; RESP 20; TEMP 36.6; O2SAT 99
== END 2019-08-20 03:44 | disposition other institution (70) ==
PROVIDERS: Emergency Provider Emergency Medicine; PCP Nurse Practitioner Family
DX: D73.5 Infarction of spleen (principal); V56.5XXA Driver of pick-up truck or van injured in collision with other nonmotor vehicle in traffic accident, initial encounter; I25.10 Atherosclerotic heart disease of native coronary artery without angina pectoris; E78.5 Hyperlipidemia, unspecified; E11.22 Type 2 diabetes mellitus with diabetic chronic kidney disease; I12.0 Hypertensive chronic kidney disease with stage 5 chronic kidney disease or end stage renal disease; N18.6 End stage renal disease; Z99.2 Dependence on renal dialysis; Z87.891 Personal history of nicotine dependence
CPT/HCPCS: 12345; 71101; 74177; 80053; 85025; 93005; 96365; 96366; 96375; 96376; 99283; 99285; J0360; J1170; J1630; J2405; J3010; Q9967

== ENCOUNTER 2019-10-15 15:05 | Outpatient (CLI) | payer OTHER, MEDICARE, MEDICAID, SELFPAY ==
--- NOTE | 2019-10-15 16:00 | MR_ITS ---
WS: [id number] MRI THORACIC SPINE noncontrast HISTORY: M54.9 Dorsalgia, unspecified COMPARISON: CT thoracic spine 07/24/2019 TECHNIQUE: Multiplanar sequences are performed in sagittal and axial planes. Mild increase in thoracic kyphosis centered in the mid to lower thoracic spine. No acute marrow edema or fracture. There is mild disc space narrowing and desiccation throughout the thoracic spine but mo st significant from T7-8 through T10-11. Seen within the cervical thoracic junction at the C7-T1 level is a focal area of increased T2 signal measuring 2.3 mm in diameter in the RIGHT lateral cord. There are no prior studies for comparison. Co rd appears mildly edematous on the sagittal STIR projection and enlarged in this region. The remainin g cord is negative. T1-2: Osteophytes and bilateral paracentral disc protrusions. No significant stenosis. T2-3: Moderate LEFT foraminal narrowing due to facet joint arthritis. T3-4: Shallow RIGHT paracentral disc protrusion and mild foraminal narrowing. T4-5: Shallow central disc protrusion no stenosis. T5-6: Moderate central to RIGHT paracentral disc protrusion and mild facet arthropathy. Mild foramin al narrowing. T6-7: Shallow RIGHT paracentral disc protrusion and mild bilateral facet arthritis. RIGHT foraminal nerve root diverticulum. T7-8: Moderate LEFT paracentral disc protrusion and mild facet arthritis. Mild bilateral foraminal n arrowing. T8-9: Moderate-sized LEFT paracentral and proximal foraminal disc protrusion. Mild facet arthritis. Smaller RIGHT subarticular recess protrusion. Combination of findings is causing mild central stenosi s and mild bilateral foraminal stenosis. T9-10: Moderate sized LEFT paracentral disc protrusion mild contact on the lateral thecal sac with d isplacement of the thoracic cord. Moderate bilateral facet joint arthritis. Mild central and bilatera l foraminal stenosis. T10-11: Diffuse osteophytic ridging with a moderate LEFT paracentral disc protrusion. Bilateral mode rate facet joint arthritis encroaching upon the thecal sac. Mild central and bilateral foraminal sten osis. T11-12: Mild facet arthritis. No stenosis. Space-occupying mass in the RIGHT renal pelvis measures 2.5 x 2.8 cm. Suspicious for renal mass. Plea se refer to the CT from 08/20/2019. Small LEFT cortical cysts. MR/MR thoracic spin wo con* [id number] IMPRESSION: 1. No acute thoracic spine fracture or marrow edema. 2. Multilevel mild to moderate areas of facet arthritis and disc protrusions. Most significant disease within the mid to lower thoracic spine. 3. Moderate-sized LEFT paracentral disc protrusion with mild contact on the co rd at T9-10 causing mild central stenosis. 4. Mild central and bilateral foraminal stenosis at T8-9, T9-10 and T10-11 due to combination of factors. 5. Solid mass RIGHT kidney. Suspicious for renal cell neoplasm. Please refer t o the report of 08/20/2019 CT abdomen and pelvis. 6. Cystic-like area in the RIGHT lateral cord at the C7-T1 level measures 2.3 mm diameter. Small syrinx not excluded. For further evaluation MRI cervical spi ne with and without contrast.
== END 2019-10-15 15:06 | disposition home or self-care (01) ==
PROVIDERS: PCP Nurse Practitioner Family; Visit Provider Nurse Practitioner Family
DX: M54.9 Dorsalgia, unspecified (principal); V89.2XXA Person injured in unspecified motor-vehicle accident, traffic, initial encounter; M46.94 Unspecified inflammatory spondylopathy, thoracic region; M51.24 Other intervertebral disc displacement, thoracic region; M48.04 Spinal stenosis, thoracic region; N28.89 Other specified disorders of kidney and ureter
CPT/HCPCS: 72146

== ENCOUNTER 2019-10-31 14:16 | Outpatient (CLI) | payer MEDICARE, MEDICAID, SELFPAY ==
--- NOTE | 2019-10-31 14:26 | XR_ITS ---
WS: [id number] EXAM: ABDOMINAL KUB DATE OF EXAMINATION: 10/31/2019, 1440 hours COMPARISON: None. HISTORY: Patient is 54 years old with peritoneal dialysis. Assess position of the catheter. FINDINGS: Peritoneal dialysis catheter is located overlying the left lower abdomen in the area of the paracolic gutter region. Bowel gas pattern is normal. Extensive arterial calcified plaque changes seen in the vessels in the pelvis. No definite calcifications seen to suggest renal or ureteral calculi. XR/XR abdomen 1V* [id number] IMPRESSION: Peritoneal dialysis catheter overlying the lower left side of the abdomen and i n the paracolic gutter region.
== END 2019-10-31 14:17 | disposition home or self-care (01) ==
LOC: RAD 14:24
PROVIDERS: PCP Nurse Practitioner Family; Visit Provider Internal Medicine Nephrology
DX: N18.6 End stage renal disease (principal); Z49.02 Encounter for fitting and adjustment of peritoneal dialysis catheter
CPT/HCPCS: 74018

== ENCOUNTER 2019-11-06 10:00 | Outpatient (CLI) | payer MEDICARE, MEDICAID, SELFPAY ==
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
== END 2019-11-06 10:01 | disposition home or self-care (01) ==
LOC: RADWPI 10:02
PROVIDERS: PCP Nurse Practitioner Family; Visit Provider Nurse Practitioner Family
DX: G95.0 Syringomyelia and syringobulbia (principal); M54.9 Dorsalgia, unspecified; V89.2XXA Person injured in unspecified motor-vehicle accident, traffic, initial encounter; M50.20 Other cervical disc displacement, unspecified cervical region; M50.30 Other cervical disc degeneration, unspecified cervical region; M48.02 Spinal stenosis, cervical region
CPT/HCPCS: 72156; A9579

== ENCOUNTER → 2019-11-29 10:42 | Outpatient (BNVA) | payer MEDICARE, MEDICAID, SELFPAY | PROVIDERS: PCP Nurse Practitioner Family; Visit Provider Nurse Practitioner Family | DX: R10.9 Unspecified abdominal pain (principal); R10.32 Left lower quadrant pain; R10.814 Left lower quadrant abdominal tenderness; L89.309 Pressure ulcer of unspecified buttock, unspecified stage; E11.52 Type 2 diabetes mellitus with diabetic peripheral angiopathy with gangrene; E78.5 Hyperlipidemia, unspecified; Z79.4 Long term (current) use of insulin; N30.00 Acute cystitis without hematuria; L89.321 Pressure ulcer of left buttock, stage 1; E03.9 Hypothyroidism, unspecified | CPT/HCPCS: 80053; 80061; 81000; 83036; 84443; 85025 ==

== ENCOUNTER → 2020-03-17 11:23 | Outpatient (BNVA) | payer MEDICARE, MEDICAID, SELFPAY | PROVIDERS: PCP Nurse Practitioner Family; Visit Provider Nurse Practitioner Family | DX: I10 Essential (primary) hypertension (principal); E03.9 Hypothyroidism, unspecified; E11.52 Type 2 diabetes mellitus with diabetic peripheral angiopathy with gangrene; G47.00 Insomnia, unspecified; Z79.4 Long term (current) use of insulin | CPT/HCPCS: 80053; 80061; 83036; 84443; 85025 ==

== ENCOUNTER 2020-07-21 22:03 | Observation (INO) | payer MEDICARE, MEDICAID, SELFPAY ==
--- NOTE | 2020-07-21 22:05 | XRR_ITS ---
PROCEDURE INFORMATION: Exam: XR Chest Exam date and time: 07/21/2020 10:18 PM Age: 55 years old Clinical indication: Pain; Shortness of breath; Chest pressure; Prior surgery; Surgery type: Stent, dialysis cath; Additional info: Cp TECHNIQUE: Imaging protocol: XR of the chest. Views: 1 view. COMPARISON: CR XR ribs LT mn 3V w CXR1V [id number] 08/20/2019 12:27 AM FINDINGS: Tubes, catheters and devices: Interval placement of double or triple lumen large caliber right central line with tips over the atrial caval junction and right atrium. Lungs: Unremarkable. No consolidation. Pleural spaces: Unremarkable. No pleural effusion. No pneumothorax. Heart/Mediastinum: Unremarkable. No cardiomegaly. Bones/joints: Unremarkable. XR/XR chest 1V portable [id number] IMPRESSION: Interval placement of double or triple lumen large caliber right central line with tips over the atrial caval junction and right atrium.
--- NOTE | 2020-07-21 22:05 | ECG_ITS ---
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 Measurements Intervals [place] Rate: 80 P: 40 AR: 225 QRS: 4 QRSD: 104 T: 81 QT: 411 QTc: 475 Interpretive Statements SINUS RHYTHM WITH FIRST DEGREE AV BLOCK SEPTAL MYOCARDIAL INFARCTION [40+ ms Q WAVE IN V1/V2], OF INDETERMINATE AGE Compared to ECG 08/20/2019 02:45:13 First degree AV block now present Sinus tachycardia no longer present ST (T wave) deviation no longer present Myocardial infarct finding still present Electronically Signed On 07-22-2020 17:08:20 CDT by Navneet Mckeon M.D. [id number]
[2020-07-21 22:07] VITALS: BP 199/86; PULSE 77; RESP 18; TEMP 36.9; O2SAT 97; BMI 31.7
--- NOTE | 2020-07-21 22:12 | ED_ITS ---
HPI - Chest Pain General: Chief Complaint: Chest Pain Stated Complaint: CHEST PAINS Time Seen by Provider: 07/21/20 22:06 Source: patient Mode of arrival: ambulatory Limitations: no limitations History of Present Illness: HPI narrative: 55-year-old male has history of hypertension diabetes along with coronary artery disease and is on dialysis as well. He receives dialysis Tuesday and did go today. He states that the last 2 to 3 hours has been having chest pain in the center of his chest. He states he has not had chest pains really since 3 years ago when he had a stent placed. He states that he has been hypertensive as well at home tonight. He states pain is currently 5 out of 10 in the center of his chest. He denies any dyspnea denies any radiation of his pain. Denies any worsening improving factors. He has had no nausea or vomiting. MD complaint: chest pain Associated symptoms: Deny abdominal pain, dyspnea, fever(s), nausea or vomiting Review of Systems Const: Denies: fever(s), chills, body aches or change in appetite Eyes: Denies: blurry vision or eye discomfort ENMT: Denies: throat pain or dental pain Card: Reports: chest pain Resp: Denies: dyspnea GI: Denies: abdominal pain, nausea, vomiting or diarrhea : Denies: dysuria Musc: Denies: neck pain or back pain Skin/Breast: Denies: rash Neuro: Denies: headache(s) Psych: Denies: depression Oscar/Lymph: Denies: easy bruising All/Imm: Denies: urticaria PFSH ED PFSH: Medical History Acquired hypothyroidism Acquired spondylolisthesis Anxiety and depression CAD (coronary artery disease) Cardiac stent x1 Chronic hypertension Diabetes mellitus, type II Dyslipidemia End stage renal failure on dialysis Peritoneal dialysis Environmental and seasonal allergies Erectile dysfunction due to diseases classified elsewhere HPTH (hyperparathyroidism) HTN (hypertension) Malignant hypertension PAD (peripheral artery disease) With critical lower limb ischemia 06/2019 requiring intervention with CSI atherectomy of the SFA followed by [id number] balloon angioplasty, CSI atherectomy of the tibial peroneal trunk and left anterior tibial followed by balloon angioplasty, reconstruction of the arch of the foot which was completely occluded. Polyneuropathy Protrusion of thoracic intervertebral disc Syrinx of spinal cord Vitamin D deficiency Surgical History Amputated toe of left foot due to gangrene 06/27/2019 History of heart artery stent History of repair of right rotator cuff History of toe surgery Left great toe debridement Peritoneal dialysis catheter in place Family History Brother Cancer Mother Cancer Father Heart disease Social History Smoking and tobacco status: never smoked Second hand smoke exposure: No Smoking risk assessment/counseling performed?: No Alcohol intake: never Desire information about alcohol rehabilitation?: No Counseling given: No Desire information about substance/drug rehabilitation?: No Counseling given: No Caregiver/support person: No Lives independently: Yes Housing: House Marital status: Legally Highest education level completed: Some College, No Degree service: No Current occupational status: disabled Pets and animals: Yes History of recent travel: No Current gender identity: Male Physical Exam Const: COMMON NORMALS: no acute distress, patient oriented x3 and healthy appearing HENMT: COMMON NORMALS: normocephalic and atraumatic HEAD & SCALP: normocep halic and atraumatic Eye: COMMON NORMALS: Equal, round and reactive pupils present and EOMs intact bilaterally PUPIL: Yes Equal, round and reactive pupils present Neck/C-Spine: COMMON NORMALS: full ROM and supple Chest: COMMONS NORMALS: normal inspection of the chest and normal palpation of entire chest wall Resp: COMMON NORMALS: normal respiratory effort, No retractions, No use of accessory muscles and clear to auscultation bilaterally AUSCULTATION: clear to auscultation bilaterally Cardio: COMMON NORMALS: regular rate, regular rhythm and No murmurs present (Cardio) RATE: regular rate RHYTHM: regular rhythm GI: COMMON NORMALS: Normal to inspection, nondistended, normoactive bowel sounds present, Soft to palpation, non-tender and no masses PALPATION: Yes Soft to palpation Extremity: COMMON NORMALS: normal to inspection and full ROM Neuro: COMMON NORMALS: patient oriented x3, moves all extremities and no focal motor deficits Psych: COMMON NORMALS: mental status grossly normal, Normal thought process present and cooperative THOUGHT PROCESS: Normal thought process present Skin: COMMON NORMALS: no rashes or lesions noted and no wounds GENERAL SKIN EXAM: no rashes or lesions noted Course Vital Signs: Vital signs: Vital Signs Temperature 98.4 F 07/21/20 22:07 Pulse Rate 84 07/21/20 23:47 Respiratory Rate 20 H 07/21/20 23:47 Blood Pressure 226/94 07/21/20 23:47 Pulse Oximetry 97 07/21/20 23:47 MDM - Chest Pain MDM Narrative: Medical decision making narrative: Christiano presents here with chest pain. His troponin here is consistent with his previous troponin a year ago. EKG shows no acute findings. His pain here is improved after nitro and morphine. I spoke to hospitalist will admit for ACS rule out. He has no signs of pulmonary embolism Lab Data: Labs: Lab Results 07/21/20 07/21/20 07/21/20 Range/Units 22:19 22:19 22:19 WBC Cancelled Corrected WBC Cancelled RBC Cancelled Hgb Cancelled Hct Cancelled MCV Cancelled MCH Cancelled MCHC Cancelled RDW Cancelled Plt Count Cancelled MPV Cancelled Gran % Cancelled Neut % (Auto) Cancelled Lymph % (Auto) Cancelled [place] % (Auto) Cancelled Eos % (Auto) Cancelled Baso % (Auto) Cancelled Neut # (Auto) Cancelled Lymph # (Auto) Cancelled [place] # (Auto) Cancelled Eos # (Auto) Cancelled Baso # (Auto) Cancelled Absolute Gran (aut o) Cancelled Nucleated RBC % (a uto) Cancelled Nucleated RBCs # Cancelled Sodium Cancelled Potassium Cancelled Chloride Cancelled Carbon Dioxide Cancelled Anion Gap Cancelled BUN Cancelled Creatinine Cancelled GFR Calculation Cancelled Glucose Cancelled Calculated Osmolal ity Cancelled Calcium Cancelled Total Bilirubin Cancelled AST Cancelled ALT Cancelled Alkaline Phosphata se Cancelled Troponin T Baselin e Cancelled Total Protein Cancelled Albumin Cancelled Globulin Cancelled 07/21/20 07/21/20 07/21/20 Range/Units 22:33 22:33 22:33 WBC 8.5 Corrected WBC RBC 4.45 Hgb 12.2 Hct 36.2 L MCV 81.3 MCH 27.4 L MCHC 33.7 RDW 16.6 H Plt Count 288 MPV 9.7 Gran % Neut % (Auto) 65.6 Lymph % (Auto) 19.2 [place] % (Auto) 11.1 Eos % (Auto) 1.9 Baso % (Auto) 1.4 Neut # (Auto) 5.57 Lymph # (Auto) 1.6 [place] # (Auto) 0.9 Eos # (Auto) 0.2 Baso # (Auto) 0.1 Absolute Gran (aut o) Nucleated RBC % (a uto) 0 Nucleated RBCs # 0.0 Sodium Cancelled Potassium Cancelled Chloride Cancelled Carbon Dioxide Cancelled Anion Gap Cancelled BUN Cancelled Creatinine Cancelled GFR Calculation Cancelled Glucose Cancelled Calculated Osmolal ity Cancelled Calcium Cancelled Total Bilirubin Cancelled AST Cancelled ALT Cancelled Alkaline Phosphata se Cancelled Troponin T Baselin e Cancelled Total Protein Cancelled Albumin Cancelled Globulin Cancelled 07/21/20 07/21/20 Range/Units 22:47 22:47 WBC Corrected WBC RBC Hgb Hct MCV MCH MCHC RDW Plt Count MPV Gran % Neut % (Auto) Lymph % (Auto) [place] % (Auto) Eos % (Auto) Baso % (Auto) Neut # (Auto) Lymph # (Auto) [place] # (Auto) Eos # (Auto) Baso # (Auto) Absolute Gran (aut o) Nucleated RBC % (a uto) Nucleated RBCs # Sodium 133 L Potassium 4.1 Chloride 95 L Carbon Dioxide 25 Anion Gap 17.1 BUN 10 Creatinine 4.7 H GFR Calculation 13.1 L Glucose 112 Calculated Osmolal ity 276 L Calcium 7.8 L Total Bilirubin 0.3 AST 7 ALT < 5 Alkaline Phosphata se 89 Troponin T Baselin e 223 H* Total Protein 6.5 L Albumin 3.4 L Globulin 3.1 Imaging Data^: CXR: Attestation: I personally reviewed and interpreted this imaging study as follows: Radiologist's impression: [address] [address] XRay Report Signed Patient: Christiano Kearns Unit #: [id number] : 1965 Age/Sex: 55 / M ADM Date: 07/21/20 Loc: ER Room/Bed: Attending Dr: Ordering Provider/Ordering MD: Adela Black MD Date of Service: 07/21/20 Procedure(s): XR chest 1V portable [id number] Accession Number(s): [id number] Report Number: [id number] PROCEDURE INFORMATION: Exam: XR Chest Exam date and time: 07/21/2020 10:18 PM Age: 55 years old Clinical indication: Pain; Shortness of breath; Chest pressure; Prior surgery; Surgery type: Stent, dialysis cath; Additional info: Cp TECHNIQUE: Imaging protocol: XR of the chest. Views: 1 view. COMPARISON: CR XR ribs LT mn 3V w CXR1V [id number] 08/20/2019 12:27 AM FINDINGS: Tubes, catheters and devices: Interval placement of double or triple lumen large caliber right central line with tips over the atrial caval junction and right atrium. Lungs: Unremarkable. No consolidation. Pleural spaces: Unremarkable. No pleural effusion. No pneumothorax. Heart/Mediastinum: Unremarkable. No cardiomegaly. Bones/joints: Unremarkable. XR/XR chest 1V portable [id number] IMPRESSION: Interval placement of double or triple lumen large caliber right central line with tips over the atrial caval junction and right atrium. 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
[2020-07-21 22:28] VITALS: BP 205/85; PULSE 76; RESP 19; O2SAT 100
[2020-07-21 22:41] LABS: Basophils # 0.1 10^3/uL (0.0-0.1); Basophils % 1.4 %; Eosinophils # 0.2 10^3/uL (0.0-0.8); Eosinophils % 1.9 %; Hematocrit 36.2 % (42.0-52.0); Hemoglobin 12.2 g/dL (11.7-16.6); Lymphocytes # 1.6 10^3/uL (0.8-4.8); Lymphocytes % 19.2 %; Mean Corpuscular HGB Conc 33.7 g/dL (30.0-36.0); Mean Corpuscular Hemoglobin 27.4 pg (28.0-34.0); Mean Corpuscular Volume 81.3 fL (80-94); Mean Platelet Volume 9.7 fL (7.4-10.4); Monocytes # 0.9 10^3/uL (0.2-0.9); Monocytes % 11.1 %; Neutrophils # 5.57 10^3/uL (1.8-7.7); Neutrophils % 65.6 %; Nucleated Red Blood Cells % 0 %; Platelet Count 288 10^3/cmm (130-400); Red Blood Count 4.45 10^6/uL (4.1-5.3); Red Cell Distribution Width 16.6 % (12.1-15.1); White Blood Count 8.5 10^3/uL (4.0-10.0)
[2020-07-21 23:02] VITALS: BP 226/92; PULSE 76; RESP 18; O2SAT 99
[2020-07-21 23:11] LABS: Alanine Aminotransferase < 5 U/L (0-41); Albumin Level 3.4 g/dL (3.5-5.2); Alkaline Phosphatase 89 IU/L (40-130); Anion Gap 17.1 (5-19); Aspartate Amino Transferase 7 U/L (0-40); Blood Urea Nitrogen 10 mg/dL (6-20); Calcium 7.8 mg/dL (8.5-10.5); Carbon Dioxide 25 mmol/L (22-29); Chloride 95 mmol/L (98-107); Globulin 3.1 g/dL (1.3-4.6); Glomerular Filtration Rate 13.1 mL/min (90-130); Glucose 112 mg/dL (65-115); Osmolality Calculated 276 mOsm/kg (285-295); Potassium 4.1 mmol/L (3.5-5.1); Sodium 133 mmol/L (136-145); Total Bilirubin 0.3 mg/dL (0.15-1.2); Total Protein 6.5 g/dL (6.6-8.7)
[2020-07-21 23:19] LABS: Troponin(5th) Baseline 223 ng/L (0-15)
[2020-07-21] MEDS: morphine 4 mg/mL SDV 1 mL IVP (23:22)
[2020-07-21] MEDS: labetalol 5 mg/mL SDV 20mL 10 MG IVP (23:25)
[2020-07-21 23:47] VITALS: BP 226/94; PULSE 84; RESP 20; O2SAT 97
[2020-07-22] VITALS (32 sets, daily range): BP systolic 135–207; BP diastolic 63–102; PULSE 60–89; RESP 0–20; TEMP 36.6–37.1; O2SAT 85–100
[2020-07-22] MEDS: labetalol 5 mg/mL SDV 20mL 20 MG IVP (00:02)
--- NOTE | 2020-07-22 00:05 | ECG_ITS ---
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 Measurements Intervals [place] Rate: 76 P: 42 OR: 206 QRS: 16 QRSD: 98 T: 74 QT: 422 QTc: 477 Interpretive Statements SINUS RHYTHM Compared to ECG 08/20/2019 02:45:13 Sinus tachycardia no longer present Myocardial infarct finding no longer present ST (T wave) deviation no longer present Electronically Signed On 07-22-2020 17:10:21 CDT by Navneet Mckeon M.D. [id number]
[2020-07-22 00:47] LABS: Troponin 5 2HR Delta -8.4 ABS# (0-10)
[2020-07-22 00:48] LABS: Troponin 5 2HR 214.6 ng/L (0-15)
--- NOTE | 2020-07-22 01:59 | PC.NURSE ---
NURSING NOTE: ELEVATED BP AND TROPONIN. TEXTED DR. WILLINGHAM PER [facility] CRITICAL TROPONIN LEVEL OF 114.3 AND BP OF 207/98. RECEIVED RESPONSE THAT PHYSICIAN WOULD ADDRESS ISSUES IN A BIT.
--- NOTE | 2020-07-22 02:49 | P.HP_ITS ---
Providers/Chief Complaint Admitting Physician: Malena Bacon MD Primary Care Provider: EDDA Ramirez-Arlet Chief Complaint: CHEST PAINS History of Present Illness Christiano Kearns is a 55 year old male who presented to the emergency room with chief complaint of headache and chest pain. Symptoms began approximately 2 hours after hemodialysis yesterday. He has a known history of chronic kidney disease. He had previously been on peritoneal dialysis but last August had an accident was transferred to [place]. He was at [facility] for 30+ days followed by rehabilitation stay. Up there his peritoneal dialysis catheter was removed and he has been on hemodialysis since then with dialysis on Wednesdays and Fridays. The pain in his chest has been both left-sided and right-sided. He describes it as sharp and severe. Rates at an 8 to a 9 out of 10. He has had previous cardiac stent a few years ago. He has known significant peripheral artery disease and had extensive intervention on his lower extremity last year. He has had a chronically elevated troponin on review of old records. Baseline troponin was 220s this evening. EKG did not show any acute ST segment changes. He had some relief with nitroglycerin and morphine in the emergency room but not very much by his estimation. Continues to rate pain an 8 to a 9 out of 10 both in his head and his chest.. He was noted to have blood pressures 200s over 100s. He has chronic hypertension. He reports compliance with his medications. States that lately his blood pressures have been 130s to 140s systolic home. The last time he was hospitalized here blood pressures were difficult to control but he had other issues going on at that time. Patient denies any fever. Has not had any nausea or vomiting. Denies any increased shortness of breath or new dyspnea on exertion. He has chronically had some swelling and intermittent pain in his left lower extremity since last year, not recently changed or increased. Denies orthopnea or PND. With his blood pressure and complaints of pain, he is being admitted for further treatment and evaluation is indicated. He has not had any cardiac work-up for quite some time by his report. Review of Systems Const: Reports: diaphoresis; Denies: fever(s), chills or change in weight Eyes: Denies: change in vision ENMT: Denies: throat pain or nasal congestion Card: Reports: chest pain, palpitations and edema Resp: Denies: dyspnea, productive cough or non-productive cough GI: Denies: abdominal pain, nausea, vomiting, diarrhea, constipation, hematochezia or melena : Reports: other (Still makes urine but not much); Denies: hematuria Musc: Reports: extremity pain (Reports intermittent pain in his left lower extremity x1 year); Denies: neck pain Skin/Breast: Denies: rash or sores Neuro: Reports: headache(s) and numbness in extremities (Primarily left lower extremity where he had intervention last year); Denies: weakness in extremities Psych: Reports: anxiety; Denies: depression Oscar/Lymph: Denies: easy bruising or easy bleeding Medications/Allergies Home Medications Medication Instructions Recorded Confirmed Last Taken Type hydrocodone 10 mg-acetaminophen 1 tab PO Q4H PRN tab 03/01/19 07/22/20 07/21/20 12:00 History 325 mg tablet sildenafil 100 mg tablet 100 mg PO DAILY PRN 30 Days #6 tab 03/01/19 07/22/20 Unknown Rx glucometer #1 ea 07/28/19 11/29/19 Unknown Rx glucometer strips #100 each 07/28/19 11/29/19 Unknown Rx sennosides-docusate sodium 1 tab PO BID #60 tab 07/28/19 07/22/20 07/15/20 09:00 Rx Diabetic shoes with inserts and #1 ea 12/12/19 Unknown Rx toe filler levothyroxine 112 mcg tablet 112 mcg PO DAILY 30 Days #30 tab 03/17/20 07/22/20 07/17/20 09:00 Rx zolpidem 10 mg tablet 10 mg PO ONCE 30 Days #30 tab 04/14/20 07/22/20 07/20/20 21:00 Rx metoprolol succinate 100 mg PO BEDTIME 07/22/20 07/22/20 07/21/20 21:00 History nifedipine 30 mg PO DAILY 07/22/20 07/22/20 07/20/20 20:00 History Allergies Allergy/AdvReac Type Severity Reaction Status Date / Time nitrofurantoin Allergy unknown Verified 05/20/20 15:30 clavulanic acid AdvReac Severe Nausea Verified 05/20/20 15:30 [From Augmentin] amoxicillin [From Augmentin] AdvReac Intermediate Nausea Verified 05/20/20 15:30 Additional Medication Information I personally reviewed home medication list. PFSH Acute PFSH: Medical History (Updated 07/22/20 @ 09:39 by Malena Bacon MD) Acquired hypothyroidism Acquired spondylolisthesis Anxiety and depression CAD (coronary artery disease) Cardiac stent x1 Chronic hypertension Diabetes mellitus, type II Dyslipidemia End stage renal failure on dialysis Peritoneal dialysis normally, on HD since 08/2019 when peritoneal dialysis catheter removed, due to have replaced in [place] 07/24/20 Environmental and seasonal allergies Erectile dysfunction due to diseases classified elsewhere [facility] (hyperparathyroidism) Malignant hypertension PAD (peripheral artery disease) With critical lower limb ischemia 06/2019 requiring intervention with CSI atherectomy of the SFA followed by [id number] balloon angioplasty, CSI atherectomy of the tibial peroneal trunk and left anterior tibial followed by balloon angioplasty, reconstruction of the arch of the foot which was co mpletely occluded. Peripheral vascular disease Polyneuropathy Protrusion of thoracic intervertebral disc Syrinx of spinal cord Vitamin D deficiency Surgical History (Updated 07/22/20 @ 09:19 by Malena Bacon MD) Amputated toe of left foot due to gangrene 06/27/2019, with subsequent removal of all toes left foot 08/2019 at [place], [place] History of heart artery stent History of repair of right rotator cuff History of toe surgery Left great toe debridement Peritoneal dialysis catheter in place removed 08/2019, due to be replaced 07/24/2020 Family History Brother Cancer Mother Cancer Father Heart disease Social History (Updated 07/22/20 @ 02:50 by Malena Bacon MD) Smoking and tobacco status: never smoked Second hand smoke exposure: No Alcohol intake: never Caregiver/support person: No Lives independently: Yes Housing: House Marital status: Legally Highest education level completed: Some College, No Degree service: No Current occupational status: disabled Pets and animals: Yes History of recent travel: No Current gender identity: Male Vitals/I&O/Wt Last Vital Signs Temp 97.8 F 07/22/20 00:00 Pulse 86 07/22/20 00:00 Resp 16 07/22/20 00:00 BP 206/92 07/22/20 00:00 Pulse Ox 99 07/22/20 00:00 Weight last 48 hrs Weight 97.522 kg Physical Exam Narrative: EXAM NARRATIVE: Constitutional: Alert and oriented, cooperative HEENT: Normocephalic, pupils are equally reactive, nasopharynx is clear, oropharynx with moist mucous membranes Neck: Supple Respiratory: Clear to auscultation bilaterally without any rales rhonchi or wheezes noted Cardiovascular: Regular rate and rhythm without any murmurs or rubs, chest wall is tender to palpation currently on the right rib cage laterally and anteriorly. Dialysis catheter intact. Abdomen: Soft, nontender, positive bowel sounds : Deferred Extremities: Amputation of all the toes of the left foot, no open wounds noted. Left lower extremity does have some pitting edema compared to right lower extremity, no calf tenderness. Skin: Skin is dry, no acute rashes noted Neuro: Face symmetric, speech clear, handgrip equal, moves both feet Psych: Normal affect Data : 07/21/20 22:33 07/22/20 04:29 Other data: Labs: Laboratory Results WBC 8.5 10^3/uL (4.0-10.0) 07/21/20 22:33 Corrected WBC Cancelled 07/21/20 22:19 RBC 4.45 10^6/uL (4.1-5.3) 07/21/20 22:33 Hgb 12.2 g/dL (11.7-16.6) 07/21/20 22:33 Hct 36.2 % (42.0-52.0) L 07/21/20 22:33 MCV 81.3 fL (80-94) 07/21/20 22:33 MCH 27.4 pg (28.0-34.0) L 07/21/20 22:33 MCHC 33.7 g/dL (30.0-36.0) 07/21/20 22:33 RDW 16.6 % (12.1-15.1) H 07/21/20 22:33 Plt Count 288 10^3/cmm (130-400) 07/21/20 22:33 MPV 9.7 fL (7.4-10.4) 07/21/20 22:33 Gran % Cancelled 07/21/20 22:19 Neut % (Auto) 65.6 % 07/21/20 22:33 Lymph % (Auto) 19.2 % 07/21/20 22:33 [place] % (Auto) 11.1 % 07/21/20 22:33 Eos % (Auto) 1.9 % 07/21/20 22:33 Baso % (Auto) 1.4 % 07/21/20 22:33 Neut # (Auto) 5.57 10^3/uL (1.8-7.7) 07/21/20 22:33 Lymph # (Auto) 1.6 10^3/uL (0.8-4.8) 07/21/20 22:33 [place] # (Auto) 0.9 10^3/uL (0.2-0.9) 07/21/20 22:33 Eos # (Auto) 0.2 10^3/uL (0.0-0.8) 07/21/20 22:33 Baso # (Auto) 0.1 10^3/uL (0.0-0.1) 07/21/20 22:33 Absolute Gran (auto) Cancelled 07/21/20 22:19 Nucleated RBC % (auto) 0 % 07/21/20 22:33 Nucleated RBCs # 0.0 /100WBC 07/21/20 22:33 Sodium 135 mmol/L (136-145) L 07/22/20 04:29 Potassium 4.0 mmol/L (3.5-5.1) 07/22/20 04:29 Chloride 96 mmol/L (98-107) L 07/22/20 04:29 Carbon Dioxide 27 mmol/L (22-29) 07/22/20 04:29 Anion Gap 16.0 (5-19) 07/22/20 04:29 BUN 12 mg/dL (6-20) 07/22/20 04:29 Creatinine 5.2 mg/dL (0.7-1.2) H 07/22/20 04:29 GFR Calculation 11.6 mL/min (90-130) L 07/22/20 04:29 Glucose 109 mg/dL (65-115) 07/22/20 04:29 Calculated Osmolality 280 mOsm/kg (285-295) L 07/22/20 04:29 Calcium 7.7 mg/dL (8.5-10.5) L 07/22/20 04:29 Phosphorus 4.2 mg/dL (2.5-4.5) 07/22/20 04:29 Magnesium 2.2 mg/dL (1.7-2.3) 07/22/20 04:29 Total Bilirubin 0.3 mg/dL (0.15-1.2) 07/21/20 22:47 AST 7 U/L (0-40) 07/21/20 22:47 ALT < 5 U/L (0-41) 07/21/20 22:47 Alkaline Phosphatase 89 IU/L (40-130) 07/21/20 22:47 Troponin T Baseline 223 ng/L (0-15) H* 07/21/20 22:47 Troponin T 120 Minute 214.6 ng/L (0-15) H 07/22/20 00:15 Delta Troponin T -8.4 ABS# (0-10) L 07/22/20 00:15 Troponin T Hi Sens 6Hr 188.0 ng/L (0-15) H 07/22/20 04:29 Troponin T Hi Sens 6Hr Delta -35.0 ng/L (0-12) L 07/22/20 04:29 Total Protein 6.5 g/dL (6.6-8.7) L 07/21/20 22:47 Albumin 3.4 g/dL (3.5-5.2) L 07/21/20 22:47 Globulin 3.1 g/dL (1.3-4.6) 07/21/20 22:47 Impressions Chest X-Ray 07/21/20 22:05 IMPRESSION: Interval placement of double or triple lumen large caliber right central line with tips over the atrial caval junction and right atrium. EKG: Sinus rhythm without any acute ST segment segment changes per my interpret ation Prior or outside records reviewed: Reviewed previous records from last time I cared for him, some outpatient notes and the ER note when he was transferred to [facility] A&P Assessment and plan (1) Chest pain: Atypical though with history of coronary artery disease, prior stent, known peripheral artery disease and historically with diabetes. Also has headache. The symptoms may be related to malignant hypertension. Patient states that his blood pressures are normally 130s to 140s systolic. He has had multiple clinic and inpatient visits demonstrating blood pressures and 200s over 100s although there are a few cardiology clinic visits were pressures have been better. Status: Acute Qualifiers: Chest pain type: unspecified Qualified Code(s): R07.9 - Chest pain, unspecified (2) Malignant hypertension: Status: Chronic (3) CAD (coronary artery disease): History of prior cardiac stent Status: Chronic Qualifiers: Coronary Disease-Associated Artery/Lesion type: ione artery [place] vs. transplanted heart: ione heart Associated angina: without angina Qualified Code(s): I25.10 - Atherosclerotic heart disease of ione coronary artery without angina pectoris (4) End stage renal failure on dialysis: Currently on hemodialysis Wednesdays and Fridays, has plans for peritoneal dialysis catheter replacement in [place] this Status: Chronic (5) PAD (peripheral artery disease): Had critical limb ischemia requiring intervention last year and ultimately ended up having amputation of all of the toes of his left foot Status: Inactive (6) Diabetes mellitus, type II: Not currently on any treatment Status: Chronic Qualifiers: Diabetes mellitus complication detail: with peripheral angiopathy with gangrene Diabetes mellitus complication status: with circulatory complication Diabetes mellitus prison insulin use: without 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 terminal 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 Qualified Code(s): E11.52 - Type 2 diabetes mellitus with diabetic peripheral angiopathy with gangrene Additional A&P Information Hypothyroidism on chronic levothyroxine Erectile dysfunction with a prescription for sildenafil Insomnia on chronic Ambien Left lower extremity edema since interventions last year Observation admission Continue serial cardiac enzymes and EKGs Resume home medications including Procardia, metoprolol (have ordered tartrate here while trying to get blood pressure under better control acutely though he is usually on succinate) Add nitroglycerin Hydralazine if remains hypertensive after above Echocardiogram and Lexiscan MIBI Pain control with Tylenol, hydrocodone and morphine if needed If remains hospitalized we will need to consult nephrology for hemodialysis on Tuesday Patient is currently scheduled for peritoneal dialysis catheter placement in [place] on of this week though this may have to be rescheduled depending on clinical course here Low-dose sliding scale insulin currently, not on anything for diabetes at home presently Continue home Ambien Supportive care otherwise Pending/ordered tests/procedures to follow: Echocardiogram and Lexiscan MIBI DVT prophylaxis: Subcu heparin Plans, findings and concerns discussed with patient and he was given an opportunity to ask questions. Code Status: Full code Attestations Medical Necessity Statement*: Currently anticipate a stay less than two midnights in this patient with multiple medical issues as noted above presenting with chest pain and headache in the setting of malignant hypertension. He has known coronary artery disease and has not had any cardiac evaluation for some time. Other issues and plans are as noted above. Coding Level of Care Code Acute Holistic Nutritionist for Fabian Mellisa Diagnoses Chest pain R07.9 Chest pain type: unspecified Malignant hypertension I10 CAD (coronary artery disease) I25.10 Coronary Disease-Associated Artery/Lesion type: ione artery [place] vs. transplanted heart: ione heart Associated angina: without angina End stage renal failure on dialysis N18.6; Z99.2 PAD (peripheral artery disease) I73.9 Diabetes mellitus, type II E11.52 Diabetes mellitus complication detail: with peripheral angiopathy with gangrene Diabetes mellitus complication status: with circulatory complication Diabetes mellitus prison insulin use: without prison use
[2020-07-22] MEDS: NIFEdipine 10 mg Capsule PO (03:37)
[2020-07-22] MEDS: HYDROcodone-acetaminophen 10-325 mg Tablet 1 TAB PO ×2 (03:37→20:31)
[2020-07-22] MEDS: heparin 5,000 unit/mL INJ 1 mL 5000 UNIT SUBCUT ×2 (03:38→15:59)
--- NOTE | 2020-07-22 04:05 | ECG_ITS ---
[facility] Test Date: 2020-07-22 Pat Name: Christiano Kearns Department: Room: 102 Gender: Male Client Leader: : 1965 Requested By: Adela Black Order Number: [id number] Zach MD: Navneet Mckeon M.D. Measurements Intervals [place] Rate: 87 P: [place]: QRS: -3 QRSD: 100 T: 75 QT: 382 QTc: 460 Interpretive Statements SINUS RHYTHM WITH FIRST DEGREE AV BLOCK Compared to ECG 07/21/2020 23:38:43 T-wave abnormality now present Sinus rhythm no longer present First degree AV block no longer present Myocardial infarct finding no longer present Electronically Signed On 07-22-2020 17:10:15 CDT by Navneet Mckeon M.D. [id number]
[2020-07-22 05:32] LABS: Blood Urea Nitrogen 12 mg/dL (6-20); Calcium 7.7 mg/dL (8.5-10.5); Carbon Dioxide 27 mmol/L (22-29); Chloride 96 mmol/L (98-107); Glomerular Filtration Rate 11.6 mL/min (90-130); Glucose 109 mg/dL (65-115); Magnesium 2.2 mg/dL (1.7-2.3); Osmolality Calculated 280 mOsm/kg (285-295); Phosphorus 4.2 mg/dL (2.5-4.5); Sodium 135 mmol/L (136-145)
[2020-07-22] MEDS: metoprolol tartrate 50 mg Tablet 100 MG PO ×2 (05:40→17:16)
[2020-07-22] MEDS: morphine 4 mg/mL SDV 1 mL IVP (05:44)
--- NOTE | 2020-07-22 06:14 | ECG_ITS ---
[facility] Test Date: 2020-07-22 Pat Name: Christiano Kearns Department: Room: 102 Gender: Male Shoe Laster: Rosemarie Gibson : 1965 Requested By: Malena Bacon Order Number: [id number] Zach MD: Navneet Mckeon M.D. Interpretive Statements NAME OF STUDY: LEXISCAN SESTAMIBI STRESS TEST INDICATION: [Chest Pain, ] Procedure: At the baseline, the blood pressure was 187/86mmHg with a heart rate of 77 bpm. The electrocardiogram showed normal sinus rhythm, normal axis with normal ST and T's. The Lexiscan was infused over a period of 20 seconds. A total of 0.4 mg of Lexiscan was infused. The stress phase was continued for a total of 5 minutes. Heart rate was at the end of stress phase was 94 bpm and a blood pressure of 163/76 mmHg. The EKG at the peak infusion revealed since normal sinus rhythm with no significant ST-T wave changes. Sestamibi was injected 20 seconds after the Lexiscan infusion. Blood pressure at the end of recovery phase was 185/93 mmHg with a heart rate of 98 bpm. Conclusion: 1. Normal EKG response to Lexiscan infusion 2. No Lexiscan induced chest pain or cardiac arrhythmia. 3. Normal blood pressure and heart rate response. 4. Sestamibi/sestamibi perfusion scan pending; see separate report. Electronically Signed On 09-07-2020 18:02:07 CDT by Navneet Mckeon M.D. [id number]
--- NOTE | 2020-07-22 06:15 | USCV_ITS ---
Christiano Kearns Age: 55 Gender: M : 1965 Exam Date: 07/22/2020 09:44 Ordering Phys: Malena Bacon MD Technologist: Caty Snow Exam Location: [place] Indication: CHEST PAIN BP: / HR: 66 Rhythm: Sinus Technical Quality: Very technically difficult study MEASUREMENTS (Male / Female) Normal Values 2D ECHO LV Diastolic Diameter PLAX 3.8 cm 4.2 - 5.9 / 3.9 - 5.3 cm LV Systolic Diameter PLAX 2.4 cm LV Chamber Size 2.3 cm IVS Diastolic Thickness 1.5 cm 0.6 - 1.0 / 0.6 - 0.9 cm IVS Systolic Thickness 1.6 cm LVPW Diastolic Thickness 2.2 cm 0.6 - 1.0 / 0.6 - 0.9 cm LVPW Systolic Thickness 3.1 cm RV Chamber Size 3.1 cm LVOT Diameter 2.0 cm LV Ejection Fraction 2D Teich 67.1 % LV Ejection Fraction MOD 2C 33.8 % LV Ejection Fraction 2C AL 36.6 % LA Diameter 3.5 cm LA Width 3.5 cm LA Height 5.0 cm RA Width 2.5 cm RA Height 4.5 cm Aorta at Sinotubular Diameter 3.2 cm M-MODE LV Diastolic Diameter MM 4.4 cm 4.2 - 5.9 / 3.9 - 5.3 cm LV Systolic Diameter MM 3.1 cm LV Ejection Fraction MM Teich 56.2 % IVS Diastolic Thickness MM 0.9 cm 0.6 - 1.0 / 0.6 - 0.9 cm IVS Systolic Thickness MM 1.0 cm LVPW Diastolic Thickness MM 0.9 cm 0.6 - 1.0 / 0.6 - 0.9 cm LVPW Systolic Thickness MM 1.2 cm Aortic Annulus Diameter 3.2 cm LA Ao Ratio MM 1.0 MV E Point Septal Separation 0.7 cm DOPPLER AV Peak Velocity 149.0 cm/s LVOT Peak Velocity 109.0 cm/s AV Area Cont Eq vti 2.7 cm squared AV Area Cont Eq pk 2.4 cm squared MV Area PHT 4.2 cm squared Mitral E to A Ratio 1.5 MV E' Velocity 60.0 cm/s Mitral E to MV E' Ratio 16.3 Mitral E to LV E' Lateral Ratio 14.0 Mitral E to LV E' Septal Ratio 19.3 TR Peak Velocity 141.8 cm/s TR Peak Gradient 8.0 mmHg TV Peak E Velocity 53.0 cm/s Right Atrial Pressure 3.0 mmHg Pulmonary Artery Systolic Pressu 11.0 mmHg PV Peak Velocity 88.0 cm/s RV Acceleration Time 0.2 s RV Ejection Time 0.4 s RV AcT/ET 0.5 FINDINGS Left Ventricle Normal left ventricular cavity size. Increased left ventricular wall thickness. Normal left ventricular systolic function. Left ventricular ejection fraction is estimated at 55%. This study is inadequate for estimation of regional wall motion abnormality. Grade II diastolic dysfunction, moderately elevated filling pressures. Right Ventricle Right ventricle not well visualized. Probably normal right ventricular systolic function. Right Atrium Right atrium not well visualized. Left Atrium Mildly increased left atrial size. Mitral Valve Moderate to severe mitral annular calcification. Thickened mitral valve. No mitral valve stenosis. Trace mitral valve regurgitation. Aortic Valve Aortic valve not well visualized. No aortic valve stenosis. No aortic valve regurgitation. Tricuspid Valve Tricuspid valve not well visualized. Pulmonic Valve Structurally normal pulmonic valve. No pulmonary valve stenosis. Pericardium No pericardial effusion. Aorta Normal-sized aortic root. CONCLUSIONS 1. This is a technically very difficult study. 2. Normal left ventricular cavity size. Increased left ventricular wall thickness. Normal left ventricular systolic function. Left ventricular ejection fraction is estimated at 55%. This study is inadequate for estimation of regional wall motion abnormality. Grade II diastolic dysfunction, moderately elevated filling pressures. 3. Probably normal right ventricular systolic function. 4. No significant valvular normality. 5. Direct comparison to previous study is not possible given technically difficult study. Yesica Medina MD (Electronically Signed) Final Date: 22 July 2020 18:36 S
--- NOTE | 2020-07-22 06:23 | NMCV_ITS ---
NM jeffery perf SPECT r/s* [id number] Christiano Kearns Age: 55 Gender: M : 1965 Exam Date: 07/22/2020 07:26 Ordering Phys: Malena Bacon MD Technologist: YOVANI Burgess Exam Location: [facility] Indications: CHEST PAIN STRESS TEST Please see separate stress test report in [facility] for full findings IMAGE PROTOCOL Rest/Stress 1 Lexiscan Day Radiopharmaceutical Dose (mCi) Administration Site Administered by Rest: Tc-99m 11.0 IV YOVANI Benavides Sestamibi Stress:Tc-99m 32.7 IV YOVNAI Burgess Sestaminely Rest: 22-Jul-2020 60 Discovery 630 Stress: 22-Jul-2020 30 Discovery 630 0.4mg Lexiscan. Images obtained in supine and prone position. SPECT RESULTS Technical Quality: Excellent Raw Data Analysis: Normal Image Corrections: No attenuation or motion correction applied Summed Stress Score: 4 Summed Rest Score: 3 Summed Difference Score: 2 PERFUSION FINDINGS There is a small in size, partially reversible perfusion defect in the inferior and apical inferior wall. This is consistent with prior infarct with some rae- infarct ischemia. FUNCTIONAL RESULTS (calculated via Gated SPECT) Stress Image LV EF (%): 65 Stress EDV (mL):167 TID: 1.11 Stress ESV (mL):59 FUNCTIONAL FINDINGS: There is normal left ventricular systolic function with EF of 65%. IMPRESSIONS 1. Abnormal myocardial perfusion imaging with partially reversible perfusion defect in inferior and apical inferior soto. This is consistent with small sized prior infarct with rae-infarct ischemia. 2. LV systolic function is normal. Navneet Mckeon MD (Electronically Signed) Final Date: 22 July 2020 15:21 S
[2020-07-22] MEDS: regadenoson 0.4 Mg/5 ml Syringe IVP (08:17)
[2020-07-22] MEDS: ondansetron 2 mg/ML SDV 2 mL 4 MG IVP (08:22)
[2020-07-22] MEDS: hyDRALAzine 50 mg Tablet PO ×4 (09:36→20:31)
[2020-07-22] MEDS: NIFEdipine ER (24 hr) 30 mg Tablet PO (09:36)
[2020-07-22] MEDS: levothyroxine 112 mcg Tablet PO (09:37)
[2020-07-22] MEDS: docusate sodium 100 mg Capsule PO ×2 (09:37→17:16)
[2020-07-22] MEDS: pantoprazole DR 40 mg Tablet PO (09:37)
[2020-07-22 10:44] LABS: Glucose Point of Care 143 mg/dL (70-110)
[2020-07-22] MEDS: nitroglycerin 1 gm/inch oint Pkt 1 INCH TOPICAL ×2 (11:46→18:50)
[2020-07-22 17:09] LABS: Glucose Point of Care 106 mg/dL (70-110)
--- NOTE | 2020-07-22 17:22 | PC.NURSE ---
patient reports chest pressure 5/[address] comer notified awaiting new orders
[2020-07-22] MEDS: heparin drip 25,000 UNIT/500 ML PREMIX 27 UNIT IV (17:44)
[2020-07-22] MEDS: calcium carbonate 500 mg Chew Tablet 1000 MG PO (17:47)
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
--- NOTE | 2020-07-22 19:09 | P.PN_ITS ---
Subjective Subjective: Interval history: No chest pain at the time of my visit following stress test, but did have on and off chest discomfort through the day, up to 06/23. Some discomfort during my repeat visit later in the afternoon to discuss results of stress test. Headache had been resolving. Blood pressure variable, but overall better. Vitals/I&O/Wt Last Vital Signs Temp 98.7 F 07/22/20 11:03 Pulse 66 07/22/20 17:00 Resp 6 L 07/22/20 17:00 BP 164/75 07/22/20 17:00 Pulse Ox 98 07/22/20 17:00 07/22/20 07/22/20 07/22/20 06:59 14:59 22:59 Intake Total 480 / 480 240 / 720 Output Total 100 / 100 300 / 300 Balance -100 / -100 180 / 180 240 / 420 Weight last 48 hrs Weight 97.522 kg Weight 97.522 kg Physical Exam Const: COMMON NORMALS: no acute distress and patient oriented x3 HENMT: COMMON NORMALS: oropharynx normal Neck/C-Spine: COMMON NORMALS: no JVD Resp: COMMON NORMALS: normal respiratory effort and clear to auscultation bilaterally AUSCULTATION: clear to auscultation bilaterally Cardio: COMMON NORMALS: no JVD, regular rhythm, S1 normal heart sound present, S2 normal heart sound present and No murmurs present (Cardio) RHYTHM: regular rhythm HEART SOUNDS: S1 normal heart sound present and S2 normal heart sound present GI: COMMON NORMALS: Normal to inspection, nondistended, normoactive bowel sounds present, Soft to palpation and non-tender PALPATION: Yes Soft to palpation Extremity: COMMON NORMALS: no joint enlargement and no pedal edema Neuro: COMMON NORMALS: patient oriented x3 and moves all extremities Skin: COMMON NORMALS: no rashes or lesions noted GENERAL SKIN EXAM: no rashes or lesions noted Data : 07/21/20 22:33 07/22/20 04:29 A&P Assessment and plan (1) Chest pain: Atypical though with history of coronary artery disease, prior stent, known peripheral artery disease and historically with diabetes. Also has heada leon. The symptoms may be related to malignant hypertension. Patient states that his blood pressures are normally 130s to 140s systolic. He has had multiple clinic and inpatient visits demonstrating blood pressures and 200s over 100s although there are a few cardiology clinic visits were pressures have been better. We will continue to optimize his blood pressures. Appreciate cardiology recommendations with regards to additional assessment/management. Status: Acute Qualifiers: Chest pain type: unspecified Qualified Code(s): R07.9 - Chest pain, unspecified (2) Malignant hypertension: Blood pressure is improved. Still somewhat variable this afternoon up to 170s, this evening 157/72. Overall doing better. For now continue metoprolol, hydralazine, nifedipine. Caution with hypotension with nifedipine. Status: Chronic (3) CAD (coronary artery disease): History of prior cardiac stent Status: Chronic Qualifiers: Associated angina: without angina Coronary Disease-Associated Artery/Lesion type: [place] artery [place] vs. transplanted heart: [place]aloon heart Qualified Code(s): I25.10 - Atherosclerotic heart disease of [place] coronary artery without angina pectoris (4) End stage renal failure on dialysis: Appreciate nephrology assistance with setting up dialysis tomorrow. Has plans for peritoneal dialysis catheter replacement in [place] this Status: Chronic (5) PAD (peripheral artery disease): Had critical limb ischemia requiring intervention last year and ultimately ended up having amputation of all of the toes of his left foot Status: Inactive (6) Diabetes mellitus, type II: Not currently on any treatment. Glucose at goal. 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 Insomnia: Ambien Left lower extremity edema since interventions last year Attestations Medical Necessity Statement*: Admission of over 2 midnights is needed for assessment of management of recurrent anginal symptoms with abnormal stress test, troponin elevation, optimization of poorly controlled hypertension. 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
[2020-07-22 19:54] LABS: Glucose Point of Care 101 mg/dL (70-110)
[2020-07-22] MEDS: zolpidem 5 mg Tablet 10 MG PO (20:34)
[2020-07-23 00:58] LABS: Partial Thromboplastin Time 147.6 SECONDS (23.9-36.7)
[2020-07-23] MEDS: isosorbide mononitrate ER 30 mg Tablet PO (01:02)
[2020-07-23 03:24] VITALS: BP 139/61; PULSE 71; RESP 14; TEMP 36.8; O2SAT 95
[2020-07-23 05:22] VITALS: PULSE 74
[2020-07-23] MEDS: metoprolol tartrate 50 mg Tablet 100 MG PO (05:54)
[2020-07-23 06:33] LABS: Basophils # 0.1 10^3/uL (0.0-0.1); Basophils % 1.5 %; Eosinophils # 0.3 10^3/uL (0.0-0.8); Eosinophils % 3.1 %; Hematocrit 34.6 % (42.0-52.0); Hemoglobin 10.9 g/dL (11.7-16.6); Lymphocytes # 1.4 10^3/uL (0.8-4.8); Lymphocytes % 17.5 %; Mean Corpuscular HGB Conc 31.5 g/dL (30.0-36.0); Mean Corpuscular Hemoglobin 27.5 pg (28.0-34.0); Mean Corpuscular Volume 87.2 fL (80-94); Mean Platelet Volume 9.2 fL (7.4-10.4); Monocytes # 0.9 10^3/uL (0.2-0.9); Monocytes % 11.6 %; Neutrophils # 5.23 10^3/uL (1.8-7.7); Neutrophils % 65.9 %; Nucleated Red Blood Cells % 0 %; Platelet Count 262 10^3/cmm (130-400); Red Blood Count 3.97 10^6/uL (4.1-5.3); Red Cell Distribution Width 16.4 % (12.1-15.1); White Blood Count 7.9 10^3/uL (4.0-10.0)
--- NOTE | 2020-07-23 06:50 | PC.NURSE ---
Patient off unit for dialysis at this time via wheel chair by dialysis nurse
[2020-07-23 06:51] LABS: Anion Gap 15.7 (5-19); Blood Urea Nitrogen 17 mg/dL (6-20); Calcium 7.7 mg/dL (8.5-10.5); Carbon Dioxide 26 mmol/L (22-29); Chloride 93 mmol/L (98-107); Glomerular Filtration Rate 8.5 mL/min (90-130); Glucose 104 mg/dL (65-115); Osmolality Calculated 272 mOsm/kg (285-295); Potassium 4.7 mmol/L (3.5-5.1); Sodium 130 mmol/L (136-145)
[2020-07-23 06:52] LABS: Glucose Point of Care 103 mg/dL (70-110)
[2020-07-23 06:57] LABS: Partial Thromboplastin Time 94.8 SECONDS (23.9-36.7)
[2020-07-23] MEDS: docusate sodium 100 mg Capsule PO (08:19)
[2020-07-23] MEDS: hyDRALAzine 50 mg Tablet PO ×2 (08:19→14:14)
[2020-07-23] MEDS: levothyroxine 112 mcg Tablet PO (08:19)
[2020-07-23] MEDS: NIFEdipine ER (24 hr) 30 mg Tablet PO (08:19)
[2020-07-23] MEDS: aspirin 325 mg Tablet PO (08:19)
[2020-07-23] MEDS: isosorbide mononitrate ER 60 mg Tablet PO (08:19)
[2020-07-23] MEDS: pantoprazole DR 40 mg Tablet PO (08:19)
--- NOTE | 2020-07-23 08:19 | USCV_ITS ---
Christiano Kearns Age: 55 Gender: M : 1965 Exam Date: 07/23/2020 11:02 Ordering Phys: Yesica Medina MD ([email or web address]) Technologist: BRAD Exam Location: [facility] Indication: LV FUNCTION AND RWMA BP: / HR: 66 Rhythm: Sinus Technical Quality: Adequate MEASUREMENTS (Male / Female) Normal Values 2D ECHO LV Diastolic Diameter PLAX 3.5 cm 4.2 - 5.9 / 3.9 - 5.3 cm LV Systolic Diameter PLAX 2.4 cm IVS Diastolic Thickness 1.8 cm 0.6 - 1.0 / 0.6 - 0.9 cm IVS Systolic Thickness 2.3 cm LVPW Diastolic Thickness 1.9 cm 0.6 - 1.0 / 0.6 - 0.9 cm LVPW Systolic Thickness 2.3 cm LV Ejection Fraction 2D Teich 60.1 % LV Ejection Fraction MOD 2C 45.6 % LV Ejection Fraction 2C AL 46.9 % FINDINGS Left Ventricle Right Ventricle Right Atrium Left Atrium Mitral Valve Aortic Valve Tricuspid Valve Pulmonic Valve Pericardium Aorta CONCLUSIONS 1. This is a limited echocardiogram with Optison per protocol. 2. Normal left atrial size with increased left ventricle wall thickness. Normal left ventricular systolic function. Left ventricular ejection fraction estimated at 60%. Mild hypokinesis of apical septal wall. 3. Probably normal right ventricle size and systolic function. Yesica Medina MD (Electronically Signed) Final Date: 23 July 2020 16:46 S
--- NOTE | 2020-07-23 08:20 | PM.PN ---
Subjective Subjective: Interval history: He is doing well. Unsure why his coreg was changed to metoprolol as outpatient. BP high during dialysis. improved after meds. No headache or chest pain. Medications: Reviewed: Yes Medication Review Details: Current Medications Acetaminophen (Acetaminophen 325 Mg Tablet) 650 mg PO Q6H PRN PRN Reason: Mild/Mod Pain Or Temp >/= 101 Hydrocodone Bitart/Acetaminophen (Hydrocodone-Acetaminophen 10-325 Mg Tablet) 1 tab PO Q4H PRN PRN Reason: MODERATE PAIN Last Admin: 07/22/20 20:31 Dose: 1 tab Documented by: Aspirin (Aspirin 325 Mg Tablet) 325 mg PO DAILY [facility] Bisacodyl (Bisacodyl 5 Mg Tablet) 10 mg PO DAILY PRN; Protocol PRN Reason: Constipation (see protocol) Calcium Carbonate (Calcium Carbonate 500 Mg Chew Tablet) 1,000 mg PO Q4H PRN PRN Reason: DYSPEPSI Last Admin: 07/22/20 17:47 Dose: 1,000 mg Documented by: Dextrose (Dextrose 50% Syringe 50 Ml) 25 ml IVP ONCE PRN; Protocol PRN Reason: hypoglycemia protocol Dextrose (Dextrose 50% Syringe 50 Ml) 50 ml IVP PRN PRN; Protocol PRN Reason: hypoglycemia protocol Docusate Sodium (Docusate Sodium 100 Mg Capsule) 100 mg PO BID [facility] Last Admin: 07/22/20 17:16 Dose: 100 mg Documented by: Glucagon (Glucagon 1 Mg/Ml Inj 1 Ml) 1 mg IM ONCE PRN; Protocol PRN Reason: Adult Acute Hypoglycemia Prot. Heparin Sodium (Beef Lung) (Heparin 5,000 Unit/Ml Inj 1 Ml) 0 unit IV PRN PRN; Protocol PRN Reason: Heparin weight-base protocol Hydralazine HCl (Hydralazine 50 Mg Tablet) 50 mg PO QID [facility] Last Admin: 07/22/20 20:31 Dose: 50 mg Documented by: Dextrose (D5w) 500 mls @ 100 mls/hr IV ONCE PRN; Protocol PRN Reason: Adult Acute Hypoglycemia Prot Heparin Sodium/Sodium Chloride (Heparin Drip) 25,000 unit in 500 mls @ 0 mls/hr IV .Q0M [facility]; Protocol Last Titration: 07/23/20 01:12 Dose: 10.77 unit/kg/hr, 21 mls/hr Documented by: Insulin Aspart (Insulin Aspart 100 Unit/1 Ml) 0 unit SUBCUT BEDTIME [facility]; Protocol Last Admin: 07/22/20 20:24 Dose: Not Given Documented by: Insulin Aspart (Insulin Aspart 100 Unit/1 Ml) 0 unit SUBCUT TIDWM [facility]; Protocol Last Admin: 07/23/20 07:00 Dose: Not Given Documented by: Isosorbide Mononitrate (Isosorbide Mononitrate Er 60 Mg Tablet) 60 mg PO DAILY [facility] Levothyroxine Sodium (Levothyroxine 112 Mcg Tablet) 112 mcg PO DAILY [facility] Last Admin: 07/22/20 09:37 Dose: 112 mcg Documented by: Metoprolol Tartrate (Metoprolol Tartrate 50 Mg Tablet) 100 mg PO BID@0600,1800 [facility] Last Admin: 07/23/20 05:54 Dose: 100 mg Documented by: Morphine Sulfate (Morphine 4 Mg/Ml Sdv 1 Ml) 4 mg IVP Q4H PRN PRN Reason: Severe CHEST PAIN only Last Admin: 07/22/20 05:44 Dose: 4 mg Documented by: Nifedipine (Nifedipine Er (24 Hr) 30 Mg Tablet) 30 mg PO DAILY [facility] Last Admin: 07/22/20 09:36 Dose: 30 mg Documented by: Ondansetron HCl (Ondansetron 2 Mg/Ml Sdv 2 Ml) 4 mg IVP Q8H PRN PRN Reason: vomiting, or N/V if npo Ondansetron HCl (Ondansetron 2 Mg/Ml Sdv 2 Ml) 4 mg IVP Q2M PRN PRN Reason: NAUSEA Last Admin: 07/22/20 08:22 Dose: 4 mg Documented by: Pantoprazole Sodium (Pantoprazole Dr 40 Mg Tablet) 40 mg PO DAILY [facility] Last Admin: 07/22/20 09:37 Dose: 40 mg Documented by: Zolpidem Tartrate (Zolpidem 5 Mg Tablet) 10 mg PO BEDTIME PRN PRN Reason: insomnia Last Admin: 07/22/20 20:34 Dose: 10 mg Documented by: Vitals/I&O/Wt Last Vital Signs Temp 98.3 F 07/23/20 03:24 Pulse 74 07/23/20 05:22 Resp 14 07/23/20 03:24 BP 139/61 07/23/20 03:24 Pulse Ox 95 07/23/20 03:24 07/22/20 07/23/20 07/23/20 22:59 06:59 14:59 Intake Total 240 / 720 201.6 / 921.6 Output Total 100 / 400 100 / 500 Balance 140 / 320 101.6 / 421.6 Weight last 48 hrs Weight 209 lb 4.8 oz Weight 215 lb Weight 215 lb Physical Exam Narrative: EXAM NARRATIVE: GENERAL: obese man in no acute distress HEENT: Pupils equal round reactive to light. No pallor or icterus. NECK: No JVD. No carotid bruit. CARDIOVASCULAR SYSTEM: S1-S2 regular. No S3 or S4 present. No murmur rubs or gallops. RESPIRATORY SYSTEM: Chest clear to auscultation. No wheezes rhonchi heard. No use of accessory muscles. ABDOMEN: Soft, nontender and nondistended. Normal bowel sounds present. scar + EXTREMITIES: No cyanosis or clubbing. no edema. No signs of chronic venous insufficiency. TRANSMISSION WORKER: Patient is alert oriented ?3. No focal neurological deficits. SKIN: Normal turgor and temperature. No breakdown, rash or nail changes noted. PSYCH: Normal insight and judgment. Data : 07/23/20 06:27 07/23/20 06:27 Attestation for Other Data: I personally reviewed and interpreted the following: Other data: Lexiscan sestamibi myocardial perfusion imaging 22 July 2020 PERFUSION FINDINGS There is a small in size, partially reversible perfusion defect in the inferior and apical inferior wall. This is consistent with prior infarct with some rae- infarct ischemia. FUNCTIONAL RESULTS (calculated via Gated SPECT) Stress Image LV EF (%): 65 Stress EDV (mL):167 TID: 1.11 Stress ESV (mL):59 FUNCTIONAL FINDINGS: There is normal left ventricular systolic function with EF of 65%. IMPRESSIONS 1. Abnormal myocardial perfusion imaging with partially reversible perfusion defect in inferior and apical inferior soto. This is consistent with small sized prior infarct with rae-infarct ischemia. 2. LV systolic function is normal. 07/26/19 ECHO CONCLUSIONS 1-Normal left ventricular cavity size. Normal left ventricular systolic function. No regional wall motion abnormalities. Left ventricular ejection fraction is estimated at 66 %. Grade I/IV diastolic dysfunction (abnormal relaxation filling pattern), normal to mildly elevated filling pressures. 2-There is no pericardial effusion. 3-The right ventricle is normal in size and function. RVSP could not be calculated due to incomplete tricuspid regurgitation velocity profile. 4-When compared to the prior echocardiogram dated 09/09/2016 there appeared to be thickening of mitral valve and mild aortic valve stenosis. LOWER ART DUPLEX 06/15/19 CONCLUSIONS 1. Supernormal resting DENIA on the left side. 2. Abnormal Doppler waveforms, suggestive of collateral circulation in the mid to distal SFA, popliteal and dorsalis pedis artery. 3. 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 Exact comparison is difficult since there was no Doppler imaging at that time [facility] (09/2016): Normal LM, 20-30% stenosis in LCx, normal LAD. 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 s/p mid RCA 3x 24 mm BMS. EKG shows sinus rhythm with normal axis old inferior MN and poor anterior precordial R-wave progression suggestive of old anterior MN. 06/26/19 [facility] Lower Extremity Interventional Findings 54-year-old past medical history significant for chronic kidney disease on peritoneal dialysis for gangrenous toe and critical limb ischemia was admitted to the hospital and underwent peripheral angiogram found to have subtotal occlusion of highly calcified mid to distal left SFA, high-grade stenosis of left tibioperoneal trunk, chronically occluded posterior tibial and subtotally occluded proximal anterior tibial with subtotally occluded peroneal with no flow below the knee and in the foot. CSI atherectomy using 2.0mm laura in the SFA followed by 6.0 x 100 mm [id number] balloon was performed. Tibioperoneal trunk and left anterior tibial vessel was treated with CSI atherectomy using 1.25 bur followed by 3.0 x40 mm balloon. There was complete occlusion of arch of the foot. Using command wire and 2.0 x 250 mm balloon distal anterior tibial and arch was reconstructed. At the end of the case good flow through left SFA tibioperoneal with two-vessel runoff including anterior tibial and peroneal was noted. Distal anterior tibial and arch was also noted to be getting blood supply. Distal posterior tibial was also noted to be reconstituted. Good anterior and posterior tibial pulse were dopplered. His foot color increased pain got improved. Conclusions Peripheral Procedure Description: Critical limb ischemia with gangrenous mid toe of left footRutherford grade V :Neel stage IV. . Abdominal aortogram showed normal abdominal aorta#1 Normal right and left common iliac arteries #2 Normal right and left external and internal iliac arteries #3 Normal left and right common femoral #4 Highly calcified left and right profundofemoral artery with luminal irregularity#5 Right SFA is calcified but with luminal irregularity without significant stenosis#6 Highly calcified SFA with mid subtotal occlusion with tandem stenosis#7 Highly calcified left popliteal artery without significant stenosis#8 Highly calcified left tibioperoneal trunk with moderate 60 to 70% stenosis#9 Proximal subtotal occlusion of left anterior tibial artery#10 Proximal subtotal occlusion of left peroneal artery#11 Chronically occluded posterior tibial vessel#12 No arch vessels noted A&P Assessment and plan (1) Chest pain: Chest pain in setting of markedly elevated blood pressure. echo TDS. repeat study with contrst. -old infarct with mild ischemia in RCA territory. known to be chronically occluded RCA. -elevated troponin in setting of NSTEMI type 2 -discussed with patient in detail. Plan to manage medically. -continue on imdur 60 mg daily. -Further changes based on BP. Status: Acute Qualifiers: Chest pain type: unspecified Qualified Code(s): R07.9 - Chest pain, unspecified (2) HTN (hypertension): Markedly elevated on arrival. -continue imdur 60 mg daily, metoprolol succinate 200 mg daily, nifedipine 30 mg and hydralazine 100 mg BID on discharge. -Advised to keep BP/HR log x 1-2 weeks -F/u in HCS in 1-2 weeks Status: Acute Qualifiers: Hypertension type: essential hypertension Qualified Code(s): I10 - Essential (primary) hypertension (3) Dyslipidemia: Status: Chronic (4) CAD (coronary artery disease): Status: Chronic Qualifiers: Associated angina: without angina Coronary Disease-Associated Artery/Lesion type: [place] artery [place] vs. transplanted heart: blackfeet heart Qualified Code(s): I25.10 - Atherosclerotic heart disease of [place] coronary artery without angina pectoris (5) End stage renal failure on dialysis: Status: Chronic (6) Diabetes mellitus, type II: Status: Chronic Qualifiers: Diabetes mellitus complication detail: with peripheral angiopathy with gangrene Diabetes mellitus complication status: with circulatory complication Diabetes mellitus alf insulin use: without alf use Qualified Code(s): E11.52 - Type 2 diabetes mellitus with diabetic peripheral angiopathy with gangrene Attestations Medical Necessity Statement*: As per primary team Time Spent in Patient Care: 16 - 35 minutes (>than 50% of time spent in counselling and/or direct pt care on unit). Coding Level of Care Code Acute Optometric Assistant for g Fwd Diagnoses Chest pain R07.9 Chest pain type: unspecified HTN (hypertension) I10 Hypertension type: essential hypertension Dyslipidemia E78.5 CAD (coronary artery disease) I25.10 Associated angina: without angina Coronary Disease-Associated Artery/Lesion type: [place] artery [place] vs. transplanted heart: blackfeet heart End stage renal failure on dialysis N18.6; Z99.2 Diabetes mellitus, type II E11.52 Diabetes mellitus complication detail: with peripheral angiopathy with gangrene Diabetes mellitus complication status: with circulatory complication Diabetes mellitus alf insulin use: without long term acute care registered nurse use
[2020-07-23] MEDS: perflutren protein-a microsphr 0.22 mg/mL SDV 3 mL IV (11:10)
[2020-07-23 11:20] LABS: Glucose Point of Care 106 mg/dL (70-110)
[2020-07-23 12:00] VITALS: BP 166/69
[2020-07-23 15:29] VITALS: BP 188/84
--- NOTE | 2020-07-23 15:29 | PM.CONSULT ---
Providers/Reason For Consult Consulting Physician/Specialty*: Nephrology Reason for Consult*: eval and mgmt of ESRD Attending Physician: Parminder Bender Primary Care Provider: ENRIQUE Ramirez History of Present Illness History of Present Illness Thank you for consultation, today I had the pleasure of reviewing Mr Kearns for ESRD mgmt. He presented to the hospital with headache and chest discomfort, occurring after dialysis on Tuesday. Elevation in serum troponin levels and elevated blood pressure on admission. Now being seen by cardiology for treatment of non-STEMI with current plans for medical management. Currently seen and examined on hemodialysis today. Tolerating the therapy well. No uremic symptoms, no shortness of breath or other hypervolemic symptoms. Dialysis access is running well. Blood pressure has now come down. Review of Systems Narrative: ROS - 12 point review of systems completed per HPI and subjective assessment, this includes Constitutional: No weakness, fatigue Respiratory: No SOB on exertion, comfortable at rest CardioVasc: No chest pain, palpitations Gastrointestinal: No nausea, no vomiting Neurological: No seizures, no AMS Derm: No new rashes, lesions or wounds Immunological: No seasonal and no food allergies Meds/Allergies Home Medications and Allergies Home Medications Medication Instructions Recorded Confirmed Last Taken Type hydrocodone 10 mg-acetaminophen 1 tab PO Q4H PRN tab 03/01/19 07/22/20 07/21/20 12:00 History 325 mg tablet sildenafil 100 mg tablet 100 mg PO DAILY PRN 30 Days #6 tab 03/01/19 07/22/20 Unknown Rx glucometer #1 ea 07/28/19 07/22/20 Unknown Rx glucometer strips #100 each 07/28/19 07/22/20 Unknown Rx sennosides-docusate sodium 1 tab PO BID #60 tab 07/28/19 07/22/20 07/15/20 09:00 Rx Diabetic shoes with inserts and #1 ea 12/12/19 07/22/20 Unknown Rx toe filler levothyroxine 112 mcg tablet 112 mcg PO DAILY 30 Days #30 tab 03/17/20 07/22/20 07/17/20 09:00 Rx zolpidem 10 mg tablet 10 mg PO ONCE 30 Days #30 tab 04/14/20 07/22/20 07/20/20 21:00 Rx metoprolol succinate 100 mg PO BEDTIME 06/10/0407/22/20 07/21/20 21:00 History nifedipine 30 mg PO DAILY 07/22/20 07/22/20 07/20/20 20:00 History Allergies Allergy/AdvReac Type Severity Reaction Status Date / Time nitrofurantoin Allergy unknown Verified 05/20/20 15:30 clavulanic acid AdvReac Severe Nausea Verified 05/20/20 15:30 [From Augmentin] amoxicillin [From Augmentin] AdvReac Intermediate Nausea Verified 05/20/20 15:30 Current Medications Current Medications Generic Name Dose Route Start Last Admin Trade Name Freq PRN Reason Stop Dose Admin Hydrocodone Bitart/Acetaminophen 1 tab 07/22/20 03:06 07/22/20 20:31 Hydrocodone-Acetaminophen 10-325 Mg Tablet PO 1 tab Q4H PRN Administration MODERATE PAIN Aspirin 325 mg 07/23/20 09:00 07/23/20 08:19 Aspirin 325 Mg Tablet PO 325 mg DAILY THEA Administration Calcium Carbonate 1,000 mg 07/22/20 02:57 07/22/20 17:47 Calcium Carbonate 500 Mg Chew Tablet PO 1,000 mg Q4H PRN Administration DYSPEPSI Docusate Sodium 100 mg 07/22/20 09:00 07/23/20 08:19 Docusate Sodium 100 Mg Capsule PO 100 mg BID THEA Administration Hydralazine HCl 50 mg 07/22/20 09:00 07/23/20 14:14 Hydralazine 50 Mg Tablet PO 50 mg QID THEA Administration Insulin Aspart 0 unit 07/22/20 21:00 07/22/20 20:24 Insulin Aspart 100 Unit/1 Ml SUBCUT Not Given BEDTIME THEA Protocol Insulin Aspart 0 unit 07/22/20 12:00 07/23/20 12:15 Insulin Aspart 100 Unit/1 Ml SUBCUT Not Given TIDWM [facility] Protocol Isosorbide Mononitrate 60 mg 07/23/20 09:00 07/23/20 08:19 Isosorbide Mononitrate Er 60 Mg Tablet PO 60 mg DAILY THEA Administration Levothyroxine Sodium 112 mcg 07/22/20 09:00 07/23/20 08:19 Levothyroxine 112 Mcg Tablet PO 112 mcg DAILY THEA Administration Metoprolol Tartrate 100 mg 07/22/20 06:00 07/23/20 05:54 Metoprolol Tartrate 50 Mg Tablet PO 100 mg BID@0600,1800 THEA Administration Morphine Sulfate 4 mg 07/22/20 02:57 07/22/20 05:44 Morphine 4 Mg/Ml Sdv 1 Ml IVP 4 mg Q4H PRN Administration Severe CHEST PAIN only Nifedipine 30 mg 07/22/20 09:00 07/23/20 08:19 Nifedipine Er (24 Hr) 30 Mg Tablet PO 30 mg DAILY THEA Administration Ondansetron HCl 4 mg 07/22/20 07:36 07/22/20 08:22 Ondansetron 2 Mg/Ml Sdv 2 Ml IVP 4 mg Q2M PRN Administration NAUSEA Pantoprazole Sodium 40 mg 07/22/20 09:00 07/23/20 08:[address] 40 Mg Tablet PO 40 mg DAILY THEA Administration Zolpidem Tartrate 10 mg 07/22/20 06:12 07/22/20 20:34 Zolpidem 5 Mg Tablet PO 10 mg BEDTIME PRN Administration insomnia PFSH Acute PFSH: Medical History Acquired hypothyroidism Acquired spondylolisthesis Anxiety and depression CAD (coronary artery disease) Cardiac stent x1 Chronic hypertension Diabetes mellitus, type II Dyslipidemia End stage renal failure on dialysis Peritoneal dialysis normally, on HD since 08/2019 when peritoneal dialysis catheter removed, due to have replaced in [place] 07/24/20 Environmental and seasonal allergies Erectile dysfunction due to diseases classified elsewhere HPTH (hyperparathyroidism) Malignant hypertension PAD (peripheral artery disease) With critical lower limb ischemia 06/2019 requiring intervention with CSI atherectomy of the SFA followed by [id number] balloon angioplasty, CSI atherectomy of the tibial peroneal trunk and left anterior tibial followed by balloon angioplasty, reconstruction of the arch of the foot which was completely occluded. Peripheral vascular disease Polyneuropathy Protrusion of thoracic intervertebral disc Syrinx of spinal cord Vitamin D deficiency Surgical History Amputated toe of left foot due to gangrene 06/27/2019, with subsequent removal of all toes left foot 08/2019 at [place] History of heart artery stent History of repair of right rotator cuff History of toe surgery Left great toe debridement Peritoneal dialysis catheter in place removed 08/2019, due to be replaced 07/24/2020 Family History Brother Cancer Mother Cancer Father Heart disease Social History Smoking and tobacco status: never smoked Second hand smoke exposure: No Alcohol intake: never Caregiver/support person: No Lives independently: Yes Housing: House Marital status: Legally Highest education level completed: Some College, No Degree service: No Current occupational status: disabled Pets and animals: Yes History of recent travel: No Current gender identity: Male Vitals/I&O/Wt Last Vital Signs Temp 98.3 F 07/23/20 03:24 Pulse 74 07/23/20 05:22 Resp 14 07/23/20 03:24 BP 166/69 07/23/20 12:00 Pulse Ox 95 07/23/20 03:24 07/23/20 07/23/20 07/23/20 06:59 14:59 22:59 Intake Total 201.6 / 921.6 524.5 / 524.5 Output Total 100 / 500 Balance 101.6 / 421.6 524.5 / 524.5 Weight last 48 hrs Weight 94.937 kg Weight 97.522 kg Weight 97.522 kg Physical Exam Narrative: EXAM NARRATIVE: Constitutional: Awake, comfortable HEENT: Wet mucosa, no jvp, non icteric Lungs: Bilaterally clear without discernible wheeze, rales in all lung zones CVS: S1 S2, no murmurs Abdo: Soft, BS ok Ext 4: Minimal edema, peripheral perfusion with no cyanosis Neurological: Grossly non-focal A&P Additional A&P Information 1. ESRD Seen and examined on dialysis today Continue Tuesday schedule during hospitalization Dose medication for GFR less than 15 on dialysis. 2. ACS Medical management per cardiology 3. Hemodynamics Blood pressure now under better control coming down to 139/61. Ultrafiltration with hemodialysis will help, continue oral medications. 4. Chronic ESRD issues These will be treated managed as an outpatient as part of standard monthly care. Bassam Salvador MD Nephrology [phone] Patient seen and examined via telemedicine, with the assistance of the bedside RN > 25 min spent in evaluation and mgmt of patient Consult Attestations Medical Necessity Statement: Eval for ESRD Coding Level of Care Code Acute Count Room Clerk for Chg Mellisa
--- NOTE | 2020-07-23 15:33 | P.DS_ITS ---
Discharge Providers Date of Admission: 07/22/20 00:37 Date of Discharge: July 23, 2020 Attending Provider at Admission: Malena Bacon MD Attending Provider at Discharge: Parminder Bender Primary Care Provider: ENRIQUE Ramirez Diagnoses at Discharge Discharge Diagnosis (1) Chest pain: Status: Acute Qualifiers: Chest pain type: unspecified Qualified Code(s): R07.9 - Chest pain, unspecified (2) HTN (hypertension): Status: Acute Qualifiers: Hypertension type: essential hypertension Qualified Code(s): I10 - Essential (primary) hypertension (3) Dyslipidemia: Status: Chronic (4) CAD (coronary artery disease): Status: Chronic Permanent problem details: Cardiac stent x1 Qualifiers: Associated angina: without angina Coronary Disease-Associated Artery/Lesion type: [place] artery [place] vs. 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 Blood pressure on arrival 205/85. On presentation noted nonspecific EKG changes with possible old septal infarct. Elevated troponin baseline 223, decreased down to 188 6 hours. His chest pain did improve with treatment initially. He was assessed by stress testing which was abnormal. Due to concern for non-STEMI he was started on anticoagulation in addition to coronary disease medications. He underwent assessment by echocardiography with finding of normal ejection fraction, grade 2 diastolic dysfunction, but unable to estimate regional wall motion abnormality. Stress test showed abnormal myocardial perfusion imaging with partial reversible perfusion defect inferior and apical inferior soto consistent with small size prior infarct with rae-infarct ischemia. He was assessed by cardiology. Prior cardiac history includes old infarct with chronically occluded RCA from coronary angiography 06/26/2019. Please see full report. Recommendation was to continue management medically. Blood pressure overall gradually improved with treatment here in the hospital with nifedipine, hydralazine, metoprolol, additionally started on isosorbide which was uptitrated to 60 mg daily. Chest pain symptoms had resolved. As did his headache which was thought to be related to hypertensive urgency. He is doing well this afternoon, asking to be discharged home. He is not having any chest pain, or any other concerning symptoms. Blood pressure is somewhat fluctuant still, and will need further optimization. He is asked to maintain a log of blood pressures at home to bring to his appointment. He is asked to follow-up with cardiology. Physical Exam Const: COMMON NORMALS: no acute distress and patient oriented x3 HENMT: COMMON NORMALS: oropharynx normal Neck/C-Spine: COMMON NORMALS: no JVD Resp: COMMON NORMALS: normal respiratory effort and clear to auscultation bilaterally AUSCULTATION: clear to auscultation bilaterally Cardio: COMMON NORMALS: no JVD, regular rhythm, S1 normal heart sound present, S2 normal heart sound present and No murmurs present (Cardio) RHYTHM: regular rhythm HEART SOUNDS: S1 normal heart sound present and S2 normal heart sound present GI: COMMON NORMALS: Normal to inspection, nondistended, normoactive bowel sounds present, Soft to palpation and non-tender PALPATION: Yes Soft to palpation Extremity: COMMON NORMALS: no joint enlargement and no pedal edema Neuro: COMMON NORMALS: patient oriented x3 and moves all extremities Skin: COMMON NORMALS: no rashes or lesions noted GENERAL SKIN EXAM: no rashes or lesions noted Discharge Data Data Completed and Pending: Completed Studies During Hospitalization Category Date Time Status Sestamibi Stress Test Request Racheli ne Exams 07/22/20 06:14 Draft XR chest 1V hernandez ble [id number] Stat Exams 07/21/20 22:05 Completed NM jeffery perf SPECT r/s* [id number] Routin e Nuc Med 07/22/20 06:23 Completed CV echo complete* [id number] Routine Ultrasound 07/22/20 06:15 Completed Pending at discharge Category Date Time Status Cardiac Stress Te st MIBI [Sestamibi Stress Test Reque st Exams 07/22/20 06:22 Ordered ] Routine Basic Metabolic P carlos AM LABS Lab 07/24/20 04:00 Ordered Basic Metabolic P carlos AM LABS Lab 07/25/20 04:00 Ordered Complete Blood Co unt w/Auto AM LABS Lab 07/24/20 04:00 Ordered Complete Blood Co unt w/Auto AM LABS Lab 07/25/20 04:00 Ordered CV echo lmt wo/w contras [id number] Rout ine Ultrasound 07/23/20 08:19 Taken Labs from last 24 hours 07/23/20 07/23/20 07/23/20 10:58 06:40 06:27 WBC RBC Hgb Hct MCV MCH MCHC RDW Plt Count MPV Neut % (Auto) Lymph % (Auto) [place] % (Auto) Eos % (Auto) Baso % (Auto) Neut # (Auto) Lymph # (Auto) [place] # (Auto) Eos # (Auto) Baso # (Auto) Nucleated RBC % (a uto) Nucleated RBCs # APTT 94.8 H Sodium Potassium Chloride Carbon Dioxide Anion Gap BUN Creatinine GFR Calculation Glucose POC Glucose 106 103 Calculated Osmolal ity Calcium 07/23/20 07/23/20 07/23/20 06:27 06:27 00:35 WBC 7.9 RBC 3.97 L Hgb 10.9 L Hct 34.6 L MCV 87.2 MCH 27.5 L MCHC 31.5 RDW 16.4 H Plt Count 262 MPV 9.2 Neut % (Auto) 65.9 Lymph % (Auto) 17.5 [place] % (Auto) 11.6 Eos % (Auto) 3.1 Baso % (Auto) 1.5 Neut # (Auto) 5.23 Lymph # (Auto) 1.4 [place] # (Auto) 0.9 Eos # (Auto) 0.3 Baso # (Auto) 0.1 Nucleated RBC % (a uto) 0 Nucleated RBCs # 0.0 APTT 147.6 H Sodium 130 L Potassium 4.7 Chloride 93 L Carbon Dioxide 26 Anion Gap 15.7 BUN 17 Creatinine 6.8 H* GFR Calculation 8.5 L Glucose 104 POC Glucose Calculated Osmolal ity 272 L Calcium 7.7 L 07/22/20 07/22/20 19:27 17:06 WBC RBC Hgb Hct MCV MCH MCHC RDW Plt Count MPV Neut % (Auto) Lymph % (Auto) [place] % (Auto) Eos % (Auto) Baso % (Auto) Neut # (Auto) Lymph # (Auto) [place] # (Auto) Eos # (Auto) Baso # (Auto) Nucleated RBC % (a uto) Nucleated RBCs # APTT Sodium Potassium Chloride Carbon Dioxide Anion Gap BUN Creatinine GFR Calculation Glucose POC Glucose 101 106 Calculated Osmolal ity Calcium Vitals: Last Vital Signs Temp 98.3 F 07/23/20 03:24 Pulse 74 07/23/20 05:22 Resp 14 07/23/20 03:24 BP 188/84 07/23/20 15:29 Pulse Ox 95 07/23/20 03:24 Discharge Plan Discharge Patient Disposition: Home Condition: Stable Prescriptions: New hydralazine 100 mg tablet 100 mg PO BID 30 Days Qty: 60 RF: 2 isosorbide mononitrate 60 mg Tablet Extended Release 24 Hr 60 mg PO DAILY 30 Days Qty: 30 RF: 2 aspirin 81 mg tablet,delayed release (DR/EC) 81 mg PO DAILY Qty: 30 RF: 0 Continued hydrocodone-acetaminophen 10-325 mg tablet 1 tab PO Q4H PRN (Reason: Pain) RF: 0 levothyroxine 112 mcg tablet 112 mcg PO DAILY 30 Days Qty: 30 RF: 2 zolpidem 10 mg tablet 10 mg PO ONCE 30 Days Qty: 30 RF: 5 sennosides-docusate sodium 8.6-50 mg Tablet 1 tab PO BID Qty: 60 RF: 0 nifedipine 30 mg Tablet Extended Release 30 mg PO DAILY RF: 0 Changed metoprolol succinate 100 mg tablet extended release 24 hr 200 mg PO BEDTIME Qty: 0 RF: 0 Discontinued sildenafil [Viagra] 100 mg tablet 100 mg PO DAILY PRN (Reason: sexual activity) 30 Days Qty: 6 RF: 5 Hold Instructions: holding secondary acute issues and risks of severe hypotension No Action (DME) Diabetic shoes with inserts and toe filler See Rx Instructions .Route .MEDSUPPLY Qty: 1 RF: 0 (DME) glucometer See Rx Instructions .Route .MEDSUPPLY Qty: 1 RF: 0 (DME) glucometer strips See Rx Instructions .Route .MEDSUPPLY Qty: 100 RF: 0 Discharge Orders: Discharge Order (Routine); Ordered 07/23/20 Ordered By: Parminder Bender Referrals: Freda Summers FNP-C [Primary Care Provider] - 4-7 days (You have a follow up appointment on August 04 at 900 am. If you have any questions or need to reschedule please call [phone].) Cindy Crews FNP [Nurse Practitioner] - 1 week (YOu have a follow up appointment on July 30 at 400 pm. If you ahve any questions or need to reschedule please call [phone].) Yesica Medina MD [Physician] - 2 weeks (YOu have a follow up appointment on August 06 at 230 pm. If you have any questions or need to reschedule please call [phone]) Discharge Diet: As Directed Discharge Activity: Increase activity as tolerated Patient Instructions: Hydralazine (By mouth), Isosorbide Mononitrate (By mouth), Coronary Artery Disease (DC), Coronary Artery Disease (GEN), Chronic Hypertension (GEN), Chest Pain Stoplight Activity Restrictions/Additional Instructions: Please continue renal dialysis heart healthy, consistent carbohydrate diet. Please continue to measure blood pressures at home at least 3 times daily for at least 1-2 weeks, write down values to bring to your appointment. Optimizing blood pressure control will help prevent advancement of coronary disease, as well as heart attack, stroke and other complications. In case you experience recurrence of chest pain, any severe headache, new severe shortness of breath, fainting, or any other concerning symptoms seek medical attention without delay. Please not take sildenafil at the same time as he is taking nitrate medications including nitroglycerin, isosorbide due to risk of serious complications. Discharge Attestations Time Spent in Discharge Care*: greater than 30 min Quality Metrics Clinical Quality Measures During this hospital stay, did patient experience: AMI Clinical Trial Participant: No Contraindication to aspirin (AMI): Aspirin given Contraindication to statin: Drug treatment not indicated Coding Level of Care Code Acute Chg FW DC note Exam Comprehensive Diagnoses Chest pain R07.9 Chest pain type: unspecified HTN (hypertension) I10 Hypertension type: essential hypertension Dyslipidemia E78.5 CAD (coronary artery disease) I25.10 Associated angina: without angina Coronary Disease-Associated Artery/Lesion type: [place] artery [place] vs. 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
[2020-07-23 15:47] VITALS: BP 188/84; PULSE 71; RESP 10
--- NOTE | 2020-07-23 16:37 | PC.NURSE ---
patient discharged home at this time self care patient provided with discharge instructions and follow up care patient verbalized understanding and was assisted to wheelchair with all belongings and accompanied by family and staff
== END 2020-07-23 16:15 | disposition home or self-care (01) ==
LOC: ER 23:37 → CSU 07-22 06:19
PROVIDERS: Internal Medicine Cardiovascular Disease; Admitting Provider Hospitalist; Emergency Provider Emergency Medicine; PCP Nurse Practitioner Family; Visit Provider Internal Medicine
DX: R07.9 Chest pain, unspecified (principal); E78.5 Hyperlipidemia, unspecified; I25.10 Atherosclerotic heart disease of native coronary artery without angina pectoris; E11.22 Type 2 diabetes mellitus with diabetic chronic kidney disease; I12.0 Hypertensive chronic kidney disease with stage 5 chronic kidney disease or end stage renal disease; N18.6 End stage renal disease; Z99.2 Dependence on renal dialysis; E11.52 Type 2 diabetes mellitus with diabetic peripheral angiopathy with gangrene; Z95.5 Presence of coronary angioplasty implant and graft; E03.9 Hypothyroidism, unspecified; F41.9 Anxiety disorder, unspecified; F32.9 Major depressive disorder, single episode, unspecified; E11.42 Type 2 diabetes mellitus with diabetic polyneuropathy; I73.9 Peripheral vascular disease, unspecified; N52.9 Male erectile dysfunction, unspecified; G47.00 Insomnia, unspecified
CPT/HCPCS: 36415; 36416; 71045; 78452; 80048; 80053; 82962; 83735; 84100; 84484; 85025; 85730; 93005; 93017; 93306; 96361; 96372; 96374; 96375; 96376; 99285; A9500; C8924; G0378; J1644; J1815; J2270; J2405; J2785; J3490; Q9956

== ENCOUNTER 2020-08-02 06:41 | Inpatient (IN) | payer MEDICARE, MEDICAID, SELFPAY ==
[2020-08-02] VITALS (70 sets, daily range): BP systolic 96–272; BP diastolic 45–122; PULSE 54–88; RESP 14–38; TEMP 36.4–37.1; O2SAT 91–100; BMI 31.1
--- NOTE | 2020-08-02 06:46 | XRR_ITS ---
PROCEDURE INFORMATION: Exam: XR Chest Exam date and time: 08/02/2020 6:46 AM Age: 55 years old Clinical indication: Shortness of breath; Additional info: Resp distress TECHNIQUE: Imaging protocol: XR of the chest. Views: 1 view. COMPARISON: CR (CHEST, ) 07/21/2020 10:08 PM FINDINGS: Tubes, catheters and devices: Dual lumen central venous catheter tip overlies the right atrium. Lungs: There are hazy perihilar and bibasilar opacities. Pleural spaces: Unremarkable. No pleural effusion. No pneumothorax. Heart/Mediastinum: Heart size not optimally evaluated with a single AP view of the chest. Bones/joints: Unremarkable. XR/XR chest 1V portable [id number] IMPRESSION: Hazy perihilar and bibasilar opacities are nonspecific. Differential includes pulmonary edema and pneumonia.
--- NOTE | 2020-08-02 06:49 | ECG_ITS ---
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 Measurements Intervals [place] Rate: 74 P: 46 TN: 250 QRS: 14 QRSD: 96 T: 62 QT: 396 QTc: 441 Interpretive Statements SINUS RHYTHM WITH FIRST DEGREE AV BLOCK ANTEROSEPTAL MYOCARDIAL INFARCTION [40+ ms Q WAVE IN V1-V4], OF INDETERMINATE AGE INTERPRETATION BASED ON A DEFAULT AGE OF 40 YEARS Compared to ECG 07/22/2020 03:29:15 Myocardial infarct finding now present Electronically Signed On 08-02-2020 15:02:11 CDT by Jessica Torrez M.D. [email or web address]
[2020-08-02 06:59] LABS: ABG PCO2 36.6 mmHg (35-45); Alveolar-Arterial Oxygen Gradi 16.6 mmHg (5-10); Arterial Blood Gas Hematocrit 43.7 % (42-52); Base Excess ABG 5.3 mmol/L (-2.0-2.0); Blood Gas Operator Identificat HARKR; Blood Gas Sample Site Brachial, right; Blood Gas Sample Type Arterial; Carboxyhemoglobin 1.3 %THgb (0.4-20.1); HCO3 ABG 28.5 mmol/L (22-26); HGB O2 Sat 97.2 % (95-100); Ionized Calcium Level - ABG 1.1 mmol/L (1.1-1.4); Methemoglobin 0.8 % (0.4-1.5); Oxygen Device BIPAP; Oxygen Saturation ABG 99.2; Potassium Level - ABG 4.7 mmol/L (3.5-5.0); Total Hemoglobin 14.3 g/dL (14-18)
[2020-08-02 07:05] LABS: Basophils # 0.2 10^3/uL (0.0-0.1); Basophils % 1.4 %; Eosinophils # 0.2 10^3/uL (0.0-0.8); Eosinophils % 1.5 %; Hematocrit 45.6 % (42.0-52.0); Hemoglobin 14.1 g/dL (11.7-16.6); Lymphocytes % 7.7 %; Mean Corpuscular HGB Conc 30.9 g/dL (30.0-36.0); Mean Corpuscular Hemoglobin 26.9 pg (28.0-34.0); Monocytes % 7.3 %; Neutrophils # 10.77 10^3/uL (1.8-7.7); Neutrophils % 81.6 %; Nucleated Red Blood Cells % 0 %; Platelet Count 466 10^3/cmm (130-400); Red Blood Count 5.24 10^6/uL (4.1-5.3); White Blood Count 13.2 10^3/uL (4.0-10.0)
--- NOTE | 2020-08-02 07:08 | PC.NURSE ---
Arrives with C-PAP in place by EMS
[2020-08-02] MEDS: hyDRALAzine 20 mg/mL INJ 1 mL 10 MG IVP ×2 (07:09→07:52)
[2020-08-02] MEDS: FUROsemide 10 mg/mL SDV 4mL 40 MG IVP (07:09)
--- NOTE | 2020-08-02 07:15 | ED_ITS ---
HPI - SOB/Dyspnea General: Chief Complaint: Shortness of Breath/Dyspnea Stated Complaint: SOB Time Seen by Provider: 08/02/20 06:45 History of Present Illness: HPI Narrative: 55-year-old male who woke up out of his sleep short of breath and denied any chest pain. Patient is a dialysis patient had his dialysis yesterday. When medics arrived he said he had a blood pressure of 230/130 that he sounded wet and his O2 sats were 81% they tried him on a nonrebreather and his sats went up to 90% so they put him on CPAP in route. They gave him 1 sublingual nitro and some Nitropaste as well as aspirin. In route his blood pressure significantly dropped down to the upper 80s and then to 91 and then just prior to coming into the ED it was 96 systolic Patient denies any chest pain but says he cannot breathe. Patient was here recently in the hospital with a non-STEMI and hypertensive emergencies as well as a failed stress test. He does produce some urine. He denies any edema the shortness of breath is worse when he tries to lay flat Review of Systems Narrative: General: denies fatigue, fever or chills HEENT: denies ear pain, denies nasal congestion, denies vision changes, denies sore throat Neck: denies masses or pain Resp: denies cough, see HPI, denies pleuritic pain Cardio: denies chest pain, denies edema GI: denies abdominal pain, denies N/V/D, denies black/tarry or bloody stools : denies hematuria, denies dysuria Neuro: denies headache, denies dizziness, denies motor or sensory changes Musculoskeletal: denies pain, denies swelling Skin: denies rashes Psych: denies SI or HI Endocrine: denies thyroid symptoms, denies lymphadenopathy all over ROS reviewed and patient denies [facility] PFSH: Medical History (Updated 08/02/20 @ 14:51 by Kyle Grubbs MD) Acquired hypothyroidism Acquired spondylolisthesis Anxiety and depression CAD (coronary artery disease) Cardiac stent x1 Chronic hypertension Diabetes mellitus, type II Dyslipidemia End stage renal failure on dialysis Peritoneal dialysis normally, on HD since 08/2019 when peritoneal dialysis catheter removed, due to have replaced in [place] 07/24/20 Environmental and seasonal allergies Erectile dysfunction due to diseases classified elsewhere HPTH (hyperparathyroidism) Malignant hypertension PAD (peripheral artery disease) With critical lower limb ischemia 06/2019 requiring intervention with CSI atherectomy of the SFA followed by [id number] balloon angioplasty, CSI atherectomy of the tibial peroneal trunk and left anterior tibial followed by balloon angioplasty, reconstruction of the arch of the foot which was completely occluded. Peripheral vascular disease Polyneuropathy Protrusion of thoracic intervertebral disc Syrinx of spinal cord Vitamin D deficiency Surgical History Amputated toe of left foot due to gangrene 06/27/2019, with subsequent removal of all toes left foot 08/2019 at [place], [place] History of heart artery stent History of repair of right rotator cuff History of toe surgery Left great toe debridement Peritoneal dialysis catheter in place removed 08/2019, due to be replaced 07/24/2020 Family History Brother Cancer Mother Cancer Father Heart disease Social History Smoking and tobacco status: never smoked Second hand smoke exposure: No Alcohol intake: never Caregiver/support person: No Lives independently: Yes Housing: House Marital status: Legally Highest education level completed: Some College, No Degree service: No Current occupational status: disabled Pets and animals: Yes History of recent travel: No Current gender identity: Male Physical Exam Narrative: EXAM NARRATIVE: General: a/o/3, some distress Head: atraumatic HEENT: normal eyes, normal conjunctiva, normal hearing, normal external nose, normal mouth, mucous membranes moist Neck: FROM, trachea midline Chest: normal expansion, no gross deformities Resp: normal speech, no retractions, mild accessory use, ronchi throughout Cardio: regular rate and rhythm and no murmur, no peripheral edema, normal peripheral pulses GI: soft, flat non tender, no guarding normal BS : deferred Musculoskeletal: FROM, no pain or gross deformities Neuro: a/o appropriate for age, no gross motor or sensory deficits, CN II-XII grossly intact, normal coordination, normal speech Skin: no rashes Psych: cooperative, normal mood and effect Course Vital Signs: Vital signs: Vital Signs Temperature 98.6 F 08/02/20 08:53 Pulse Rate 67 08/02/20 14:00 Respiratory Rate 27 H 08/02/20 12:00 Blood Pressure 251/105 08/02/20 12:00 Pulse Oximetry 94 08/02/20 12:00 MDM - SOB/Dyspnea MDM Narrative: Medical decision making narrative: On arrival patient's pulse was 72 which was markedly improved from EMS report in the 1 teens. He did not appear to be in severe distress I would say mild to moderate however I attempted to remove his BiPAP and he did not like that and said he cannot breathe. However he spoke in full sentences and actually appeared a little bit anxious He does have a dialysis port in his right chest. He does produce some urine I will going give him some Lasix. Due to his significant hypotension with the nitro medics had wiped off his Nitropaste. Blood pressures had to be obtained manually and in the left arm it was 230/100 in the right arm it was 230/110 I will go cautiously with some hydralazine and try to speak with nephrology. His chest x-ray shows some mild pulmonary edema. I reviewed his previous records where they had given him nifedipine however there was caution with that with hypotension as well. He did have a failed stress test but a reasonable echo on his last visit. Concerning whether this is fluid overload versus hypertensive emergency or possibly more coronary artery disease related pulmonary edema however his EKG shows no ST elevation ABG showed that his potassium was 4.7 patient probably does not need emergent dialysis however I did contact nephrology Dr. Guillen and he will consult. We both feel patient should go into the ICU. His blood gas was actually more hyper ventilatory with a pH of 7.5 CO2 36 oxygen 110. Patient does like his BiPAP and when I attempted to remove it he said he could not breathe He was given hydralazine 10 mg his blood pressure slightly improved to 220/100 however it has only been about 40 minutes will repeat the dose. Also will speak to the hospitalist and consider nifedipine patient needs to go in the ICU he has not urinated yet Discussed with Dr. Mason the hospitalist he requests that I order his daytime medications which I tried to place however he was in the chart and had entered them himself. Around 830 patient was requesting to have the BiPAP removed to see how he would do that he was feeling better she removed it and within 10 minutes he said he felt short of breath she had them on a nasal cannula at 4 L his O2 sat was 98% his pulse was 72 blood pressure difficulty reading due to some equipment failure so asked them that they would have to repeat manuals. I went in to check on the patient and he seemed more anxious than short of breath his lung sounds had improved his sats were 90% he had full sentences. I feel is little bit anxious his blood gas also showed some hyperventilation so I tried 1 mg of Ativan. I went back to check on the patient at about 845 and he was gone from the room and transferred to the ICU. Last blood pressure was 200/106 nursing staff was not able to administer any of his home meds yet because they were ordered for 9 AM and had not been verified by the pharmacy. I notified the hospitalist the patient had been transferred out prior to administering any meds was going to sign chart and on vital signs his blood pressure popped up at 250/109. That possibly could be once he got to the ICU the last vital sign that nursing staff told me was 200/106 and they took him out of the department prior to me being able to administer any further medications Medical Records: Attestation: I reviewed the patient's medical records. Lab Data: Attestation: I reviewed the patient's lab results. Labs: Lab Results 08/02/20 08/02/20 08/02/20 Range/Units 06:32 06:48 06:52 WBC 13.2 H (4.0-10.0) 10^3/ uL RBC 5.24 (4.1-5.3) 10^6/u L Hgb 14.1 (11.7-16.6) g/dL Hct 45.6 (42.0-52.0) % MCV 87.0 (80-94) fL MCH 26.9 L (28.0-34.0) pg MCHC 30.9 (30.0-36.0) g/dL RDW 17.0 H (12.1-15.1) % Plt Count 466 H (130-400) 10^3/c mm MPV 9.0 (7.4-10.4) fL Neut % (Auto) 81.6 % Lymph % (Auto) 7.7 % [place] % (Auto) 7.3 % Eos % (Auto) 1.5 % Baso % (Auto) 1.4 % Neut # (Auto) 10.77 H (1.8-7.7) 10^3/u L Lymph # (Auto) 1.0 (0.8-4.8) 10^3/u L [place] # (Auto) 1.0 H (0.2-0.9) 10^3/u L Eos # (Auto) 0.2 (0.0-0.8) 10^3/u L Baso # (Auto) 0.2 H (0.0-0.1) 10^3/u L Nucleated RBC % (a uto) 0 % Nucleated RBCs # 0.0 /100WBC PT (12.1-14.9) SECO NDS INR (0.8-1.2) Specimen Type Arterial Sample Site Brachial, right ABG pH 7.50 H (7.35-7.45) ABG pCO2 36.6 (35-45) mmHg ABG pO2 110.0 H (80.0-100.0) mmH g ABG HCO3 28.5 H (22-26) mmol/L ABG O2 Saturation 99.2 ABG Base Excess 5.3 H (-2.0-2.0) mmol/ L Stepan Test N/a A-a O2 Gradient 16.6 H (5-10) mmHg Hematocrit 43.7 (42-52) % Hgb O2 Saturation 97.2 (95-100) % Carboxyhemoglobin 1.3 (0.4-20.1) %THgb Methemoglobin 0.8 (0.4-1.5) % Total Hemoglobin 14.3 (14-18) g/dL Sodium 133.0 (131-143) mmol/L Potassium 4.7 (3.5-5.0) mmol/L Glucose 160.0 H (70-115) mg/dL Ionized Calcium 1.1 (1.1-1.4) mmol/L O2 Delivery Device Bipap FiO2 40.0 % Automotive Service Manager ID Harkr Chloride (98-107) mmol/L Carbon Dioxide (22-29) mmol/L Anion Gap (5-19) BUN (6-20) mg/dL Creatinine (0.7-1.2) mg/dL GFR Calculation (90-130) mL/min Calculated Osmolal ity (285-295) mOsm/k g Calcium (8.5-10.5) mg/dL Iron (59-158) ug/dL TIBC mcg/dl % Saturation (20-50) % Unsat Iron Binding (112-347) ug/dL Troponin T Baselin e (0-15) ng/L NT-Pro-B Natriuret Pep (0-125) pg/mL Triglycerides (0-150) mg/dL Cholesterol (0-200) mg/dL LDL Cholesterol, C alc (50-129) mg/dL Total VLDL Cholest ros (0-30) mg/dL HDL Cholesterol (60-100) mg/dL Cholesterol/HDL Ra manisha (1.0-5.00) mg/dL Procalcitonin (0-0.5) ng/mL TSH (0.27-4.20) uIU/ mL Free T4 1.43 (0.82-1.77) ng/d L Free T3 2.8 (2.0-4.4) PG/ML 08/02/20 08/02/20 08/02/20 Range/Units 06:52 06:52 06:52 WBC (4.0-10.0) 10^3/ uL RBC (4.1-5.3) 10^6/u L Hgb (11.7-16.6) g/dL Hct (42.0-52.0) % MCV (80-94) fL MCH (28.0-34.0) pg MCHC (30.0-36.0) g/dL RDW (12.1-15.1) % Plt Count (130-400) 10^3/c mm MPV (7.4-10.4) fL Neut % (Auto) % Lymph % (Auto) % [place] % (Auto) % Eos % (Auto) % Baso % (Auto) % Neut # (Auto) (1.8-7.7) 10^3/u L Lymph # (Auto) (0.8-4.8) 10^3/u L [place] # (Auto) (0.2-0.9) 10^3/u L Eos # (Auto) (0.0-0.8) 10^3/u L Baso # (Auto) (0.0-0.1) 10^3/u L Nucleated RBC % (a uto) % Nucleated RBCs # /100WBC PT 13.90 (12.1-14.9) SECO NDS INR 1.04 (0.8-1.2) Specimen Type Sample Site ABG pH (7.35-7.45) ABG pCO2 (35-45) mmHg ABG pO2 (80.0-100.0) mmH g ABG HCO3 (22-26) mmol/L ABG O2 Saturation ABG Base Excess (-2.0-2.0) mmol/ L Stepan Test A-a O2 Gradient (5-10) mmHg Hematocrit (42-52) % Hgb O2 Saturation (95-100) % Carboxyhemoglobin (0.4-20.1) %THgb Methemoglobin (0.4-1.5) % Total Hemoglobin (14-18) g/dL Sodium 135 L (131-143) mmol/L Potassium 5.0 (3.5-5.0) mmol/L Glucose 153 H (70-115) mg/dL Ionized Calcium (1.1-1.4) mmol/L O2 Delivery Device FiO2 % Automotive Service Manager ID Chloride 94 L (98-107) mmol/L Carbon Dioxide 28 (22-29) mmol/L Anion Gap 18.0 (5-19) BUN 12 (6-20) mg/dL Creatinine 4.7 H (0.7-1.2) mg/dL GFR Calculation 13.1 L (90-130) mL/min Calculated Osmolal ity 283 L (285-295) mOsm/k g Calcium 8.4 L (8.5-10.5) mg/dL Iron (59-158) ug/dL TIBC mcg/dl % Saturation (20-50) % Unsat Iron Binding (112-347) ug/dL Troponin T Baselin e 199 H* (0-15) ng/L NT-Pro-B Natriuret Pep 98412 H (0-125) pg/mL Triglycerides (0-150) mg/dL Cholesterol (0-200) mg/dL LDL Cholesterol, C alc (50-129) mg/dL Total VLDL Cholest ros (0-30) mg/dL HDL Cholesterol (60-100) mg/dL Cholesterol/HDL Ra manisha (1.0-5.00) mg/dL Procalcitonin (0-0.5) ng/mL TSH (0.27-4.20) uIU/ mL Free T4 (0.82-1.77) ng/d L Free T3 (2.0-4.4) PG/ML 08/02/20 08/02/20 Range/Units 06:52 06:52 WBC (4.0-10.0) 10^3/ uL RBC (4.1-5.3) 10^6/u L Hgb (11.7-16.6) g/dL Hct (42.0-52.0) % MCV (80-94) fL MCH (28.0-34.0) pg MCHC (30.0-36.0) g/dL RDW (12.1-15.1) % Plt Count (130-400) 10^3/c mm MPV (7.4-10.4) fL Neut % (Auto) % Lymph % (Auto) % [place] % (Auto) % Eos % (Auto) % Baso % (Auto) % Neut # (Auto) (1.8-7.7) 10^3/u L Lymph # (Auto) (0.8-4.8) 10^3/u L [place] # (Auto) (0.2-0.9) 10^3/u L Eos # (Auto) (0.0-0.8) 10^3/u L Baso # (Auto) (0.0-0.1) 10^3/u L Nucleated RBC % (a uto) % Nucleated RBCs # /100WBC PT (12.1-14.9) SECO NDS INR (0.8-1.2) Specimen Type Sample Site ABG pH (7.35-7.45) ABG pCO2 (35-45) mmHg ABG pO2 (80.0-100.0) mmH g ABG HCO3 (22-26) mmol/L ABG O2 Saturation ABG Base Excess (-2.0-2.0) mmol/ L Stepan Test A-a O2 Gradient (5-10) mmHg Hematocrit (42-52) % Hgb O2 Saturation (95-100) % Carboxyhemoglobin (0.4-20.1) %THgb Methemoglobin (0.4-1.5) % Total Hemoglobin (14-18) g/dL Sodium (131-143) mmol/L Potassium (3.5-5.0) mmol/L Glucose (70-115) mg/dL Ionized Calcium (1.1-1.4) mmol/L O2 Delivery Device FiO2 % Automotive Service Manager ID Chloride (98-107) mmol/L Carbon Dioxide (22-29) mmol/L Anion Gap (5-19) BUN (6-20) mg/dL Creatinine (0.7-1.2) mg/dL GFR Calculation (90-130) mL/min Calculated Osmolal ity (285-295) mOsm/k g Calcium (8.5-10.5) mg/dL Iron 36 L (59-158) ug/dL TIBC 167 mcg/dl % Saturation 21.5 (20-50) % Unsat Iron Binding 131 (112-347) ug/dL Troponin T Baselin e (0-15) ng/L NT-Pro-B Natriuret Pep (0-125) pg/mL Triglycerides 127 (0-150) mg/dL Cholesterol 197 (0-200) mg/dL LDL Cholesterol, C alc 127 (50-129) mg/dL Total VLDL Cholest ros 25 (0-30) mg/dL HDL Cholesterol 45 L (60-100) mg/dL Cholesterol/HDL Ra manisha 4.38 (1.0-5.00) mg/dL Procalcitonin 0.20 (0-0.5) ng/mL TSH 14.25 H (0.27-4.20) uIU/ mL Free T4 (0.82-1.77) ng/d L Free T3 (2.0-4.4) PG/ML EKG Data^: EKG 1: Attestation: I personally reviewed and interpreted this EKG as follows: EKG Interpretation Date: 08/02/20 EKG interpretation time: 07:19 Interpretation: Sinus rhythm first-degree AV block old infarct Q wave which is similar to his previous EKG LVH no acute ST elevation or depression Discharge Plan Discharge Patient Disposition: Admitted As Inpatient Admit Provider: Kyle Grubbs Clinical Impression: Hypertensive emergency, Acute respiratory distress, ESRD (end stage renal disease) Pulmonary edema Qualifiers: Chronicity: acute Qualified Code(s): J81.0 - Acute pulmonary edema Condition: Stable Coding Level of Care Code ED [employer] for [employer]
[2020-08-02 07:38] LABS: INR 1.04 (0.8-1.2)
[2020-08-02 07:53] LABS: Troponin(5th) Baseline 199 ng/L (0-15)
[2020-08-02 07:56] LABS: Blood Urea Nitrogen 12 mg/dL (6-20); Calcium 8.4 mg/dL (8.5-10.5); Carbon Dioxide 28 mmol/L (22-29); Chloride 94 mmol/L (98-107); Glomerular Filtration Rate 13.1 mL/min (90-130); Glucose 153 mg/dL (65-115); Osmolality Calculated 283 mOsm/kg (285-295); Sodium 135 mmol/L (136-145)
[2020-08-02 08:21] LABS: NT Pro B Type Natriuretic Pept 64196 pg/mL (0-125)
[2020-08-02] MEDS: LORazepam 2 mg/mL INJ 1 mL 1 MG IVP (08:22)
[2020-08-02] MEDS: pantoprazole DR 40 mg Tablet PO ×2 (09:06→17:29)
[2020-08-02] MEDS: levothyroxine 112 mcg Tablet PO (09:06)
[2020-08-02] MEDS: aspirin 81 mg EC Tablet PO (09:06)
[2020-08-02] MEDS: sennosides-docusate Tablet 1 TAB PO ×2 (09:06→17:29)
[2020-08-02] MEDS: metoprolol succinate ER (24 HR) 100 mg Tablet PO (09:06)
[2020-08-02] MEDS: hyDRALAzine 50 mg Tablet 100 MG PO ×2 (09:06→15:48)
[2020-08-02] MEDS: isosorbide mononitrate ER 60 mg Tablet PO ×2 (09:07→17:29)
--- NOTE | 2020-08-02 09:13 | CTR_ITS ---
PROCEDURE INFORMATION: Exam: CT Chest Without Contrast; Diagnostic Exam date and time: 08/02/2020 9:13 AM Age: 55 years old Clinical indication: Shortness of breath; Additional info: Copd/pna TECHNIQUE: Imaging protocol: Diagnostic computed tomography of the chest without contrast. Radiation optimization: All CT scans at this facility use at least one of these dose optimization techniques: automated exposure control; mA and/or kV adjustment per patient size (includes targeted exams where dose is matched to clinical indication); or iterative reconstruction. COMPARISON: CT chest abd pel wo con 07/24/2019 12:55 PM RADIATION DOSE METRICS: Total DLP (mGy-cm): 990.36 FINDINGS: Lungs: Multifocal patchy bilateral pulmonary ground-glass opacities. There are pulmonary parenchymal calcifications consistent with remote granulomatous organism exposure. Pleural spaces: There are bilateral pleural effusions with underlying compressive atelectasis or infiltrate. Heart: Multivessel atherosclerotic disease which involves the coronary arteries. Aorta: Unremarkable. No aortic aneurysm. Lymph nodes: There are calcified mediastinal and perihilar lymph nodes consistent with prior granulomatous exposure. Bones/joints: Unremarkable. No acute fracture. Soft tissues: There is edema in the subcutaneous soft tissues surrounding the upper abdomen. CT/CT chest wo con [id number] IMPRESSION: 1. Multifocal patchy bilateral pulmonary ground-glass opacities. Differential includes pneumonia and/or pulmonary edema. 2. There are bilateral pleural effusions with underlying compressive atelectasis or infiltrate. 3. Multivessel atherosclerotic disease which involves the coronary arteries. Radiation Dose CTDIVOL = (mGy): DLP = 990.36 (mGy-cm)
[2020-08-02] MEDS: morphine 4 mg/mL SDV 1 mL 1 MG IVP (10:00)
[2020-08-02 10:05] LABS: Chol HDL Ratio 4.38 mg/dL (1.0-5.00); Cholesterol 197 mg/dL (0-200); HDL Cholesterol 45 mg/dL (60-100); LDL Cholesterol Calculated 127 mg/dL (50-129); Thyroid Stimulating Hormone 14.25 uIU/mL (0.27-4.20); Triglycerides 127 mg/dL (0-150); VLDL Cholestrol Calculation 25 mg/dL (0-30)
[2020-08-02 10:23] LABS: Iron 36 ug/dL (59-158); Percent Saturation 21.5 % (20-50); Total Iron Binding Capacity 167 mcg/dl; Unsaturated Iron Binding 131 ug/dL (112-347)
[2020-08-02 10:32] LABS: Troponin 5 2HR Delta -10.6 ABS# (0-10)
[2020-08-02 10:33] LABS: Troponin 5 2HR 188.4 ng/L (0-15)
[2020-08-02] MEDS: ondansetron 2 mg/ML SDV 2 mL 4 MG IVP (10:34)
--- NOTE | 2020-08-02 10:39 | P.HP_ITS ---
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 Patient states he was feeling fine overnight when he went to sleep but today morning when he woke up he could not catch his breath so he called EMS. On arrival EMS found his blood pressures to be more than 250 for which he was started on nitro paste after which his blood pressure dropped to 90 systolic. In the ER patient received Lasix and his blood pressures were up again in 200s. Patient is complaining of cough without expectoration, denies any fever, subjective fever, exposure to COVID-19, sick contacts, dysuria, diarrhea, headache, dizziness, weakness in any of her arms, chest pain at present. Patient seen in the ICU. Currently as per my directions patient has received his home medications of metoprolol 100 mg, Imdur 60 mg, hydralazine 100 mg, nifedipine 30 mg and his blood pressure is still running over 230 systolics. Patient was started on nitro drip and was monitored for 2 hours with blood pressures continue to remain over 200. Patient received IV Lasix 80 mg in the ICU as well after which his breathing improved but he continued to have high blood pressures. Blood work in the ER showed a white count 13.2, hemoglobin of 14.1, platelet count of 466, ABG showing a pH of 7.5, CO2 36,. Troponin X, sodium 135, chloride of 94, potassium of 5, creatinine of 4.7, baseline troponin of 199, delta of -10 in 2 hours, proBNP of more than 64,000. Review of Systems General: Reports: 10 or more systems reviewed and unremarkable except in HPI and below Const: Denies: fever(s), chills, body aches, change in appetite, change in weight, malaise, night sweats, diaphoresis, change in sleep pattern, daytime sleepiness or snoring Eyes: Denies: change in vision, blurry vision, photophobia, eye discomfort or eye discharge ENMT: Denies: throat pain, enlarged tonsils, hoarseness, mouth pain, oral sores, dry mouth, tinnitus, nasal congestion or post nasal drip Card: Denies: chest pain, palpitations, irregular heart rhythm, edema, swelling of feet/ankles, lightheadedness, syncope, pre-syncope, dyspnea on exertion, orthopnea, leg pain with exertion or acrocyanosis Resp: Denies: dyspnea, productive cough, non-productive cough, wheezing, stridor, pain on inspiration, change in phlegm color, hemoptysis or chest congestion GI: Denies: abdominal pain, nausea, vomiting, hematemesis, coffee ground emesis, dysphagia, heartburn, diarrhea, constipation, bloating, GI cramping, change in bowel habits, pain on defecation, hematochezia or melena : Denies: flank pain, difficulty urinating, dysuria, urinary frequency, urinary urgency, urinary hesitancy, urinary dribbling, difficulty starting urination, change in urine stream, nocturia or hematuria Musc: Denies: neck pain, back pain, extremity pain, joint pain, joint swelling, joint redness, joint stiffness or limited range of motion Neuro: Denies: headache(s), numbness in extremities, weakness in extremities, sensory changes, lack of coordination, difficulty walking, frequent falls, dizziness, vertigo, confusion, Slurred speech present, difficulty communicating thoughts or seizure-like activity Psych: Denies: anxiety, depression, mood swings, panic attacks, hopelessness or irritability Endo: Denies: polyuria, polydipsia, tired all the time, cold intolerance, excessive sweating, flushing or heat intolerance Oscar/Lymph: Denies: easy bruising or easy bleeding All/Imm: Denies: tongue swelling, facial swelling or acute wheezing Medications/Allergies Home Medications Medication Instructions Recorded Confirmed Last Taken Type hydrocodone 10 mg-acetaminophen 1 tab PO Q4H PRN tab 03/01/19 08/02/20 07/21/20 12:00 History 325 mg tablet glucometer #1 ea 07/28/19 08/02/20 Unknown Rx glucometer strips #100 each 07/28/19 08/02/20 Unknown Rx sennosides-docusate sodium 1 tab PO BID #60 tab 07/28/19 08/02/20 07/15/20 09:00 Rx Diabetic shoes with inserts and #1 ea 12/12/19 08/02/20 Unknown Rx toe filler levothyroxine 112 mcg tablet 112 mcg PO DAILY 30 Days #30 tab 03/17/20 08/02/20 07/17/20 09:00 Rx nifedipine 30 mg PO DAILY 07/22/20 08/02/20 07/20/20 20:00 History aspirin 81 mg PO DAILY #30 tab 07/23/20 08/02/20 Unknown Rx hydralazine 100 mg PO BID 30 Days #60 tab 07/23/20 08/02/20 Unknown Rx isosorbide mononitrate 60 mg PO DAILY 30 Days #30 tab 07/23/20 08/02/20 Unknown Rx metoprolol succinate 100 mg 100 mg PO BID tab 07/30/20 08/02/20 Unknown History tablet,extended release 24 hr zolpidem 10 mg PO BEDTIME PRN 08/02/20 08/02/20 Unknown History Allergies Allergy/AdvReac Type Severity Reaction Status Date / Time nitrofurantoin Allergy unknown Verified 07/30/20 16:00 clavulanic acid AdvReac Severe Nausea Verified 07/30/20 16:00 [From Augmentin] amoxicillin [From Augmentin] AdvReac Intermediate Nausea Verified 07/30/20 16:00 PFSH Acute PFSH: Medical History (Updated 08/02/20 @ 14:51 by Kyle Grubbs MD) Acquired hypothyroidism Acquired spondylolisthesis Anxiety and depression CAD (coronary artery disease) Cardiac stent x1 Chronic hypertension Diabetes mellitus, type II Dyslipidemia End stage renal failure on dialysis Peritoneal dialysis normally, on HD since 08/2019 when peritoneal dialysis catheter removed, due to have replaced in [place] 07/24/20 Environmental and seasonal allergies Erectile dysfunction due to diseases classified elsewhere HPTH (hyperparathyroidism) Malignant hypertension PAD (peripheral artery disease) With critical lower limb ischemia 06/2019 requiring intervention with CSI atherectomy of the SFA followed by [id number] balloon angioplasty, CSI atherectomy of the tibial peroneal trunk and left anterior tibial followed by balloon angioplasty, reconstruction of the arch of the foot which was completely occluded. Peripheral vascular disease Polyneuropathy Protrusion of thoracic intervertebral disc Syrinx of spinal cord Vitamin D deficiency Surgical History Amputated toe of left foot due to gangrene 06/27/2019, with subsequent removal of all toes left foot 08/2019 at [place], [place] History of heart artery stent History of repair of right rotator cuff History of toe surgery Left great toe debridement Peritoneal dialysis catheter in place removed 08/2019, due to be replaced 07/24/2020 Family History Brother Cancer Mother Cancer Father Heart disease Social History Smoking and tobacco status: never smoked Second hand smoke exposure: No Alcohol intake: never Caregiver/support person: No Lives independently: Yes Housing: House Marital status: Legally Highest education level completed: Some College, No Degree service: No Current occupational status: disabled Pets and animals: Yes History of recent travel: No Current gender identity: Male Vitals/I&O/Wt Last Vital Signs Temp 98.6 F 08/02/20 08:53 Pulse 87 08/02/20 10:30 Resp 33 H 08/02/20 10:30 BP 256/113 08/02/20 10:00 Pulse Ox 92 08/02/20 10:30 Weight last 48 hrs Weight 95.708 kg Physical Exam Narrative: EXAM NARRATIVE: General: No acute distress, AO x3, anxious, on 3 L nasal cannula HEENT: PERRLA, pupils bilaterally equal and reactive Chest: Normal vesicular breath sounds, no added sounds, equal good air entry bilaterally CVS: S1-S2 regular, no murmurs, no tachycardia, no gallops, no rubs Abdomen: Soft, nontender, no organomegaly, bowel sounds present, renal bruit present Neuro: No focal deficits, no facial deformity, AO x3, power 5/5 in all limbs Data : 08/02/20 06:52 08/02/20 06:52 Other Labs: Laboratory Results WBC 13.2 10^3/uL (4.0-10.0) H 08/02/20 06:52 RBC 5.24 10^6/uL (4.1-5.3) 08/02/20 06:52 Hgb 14.1 g/dL (11.7-16.6) 08/02/20 06:52 Hct 45.6 % (42.0-52.0) 08/02/20 06:52 MCV 87.0 fL (80-94) 08/02/20 06:52 MCH 26.9 pg (28.0-34.0) L 08/02/20 06:52 MCHC 30.9 g/dL (30.0-36.0) 08/02/20 06:52 RDW 17.0 % (12.1-15.1) H 08/02/20 06:52 Plt Count 466 10^3/cmm (130-400) H 08/02/20 06:52 MPV 9.0 fL (7.4-10.4) 08/02/20 06:52 Neut % (Auto) 81.6 % 08/02/20 06:52 Lymph % (Auto) 7.7 % 08/02/20 06:52 [place] % (Auto) 7.3 % 08/02/20 06:52 Eos % (Auto) 1.5 % 08/02/20 06:52 Baso % (Auto) 1.4 % 08/02/20 06:52 Neut # (Auto) 10.77 10^3/uL (1.8-7.7) H 08/02/20 06:52 Lymph # (Auto) 1.0 10^3/uL (0.8-4.8) 08/02/20 06:52 [place] # (Auto) 1.0 10^3/uL (0.2-0.9) H 08/02/20 06:52 Eos # (Auto) 0.2 10^3/uL (0.0-0.8) 08/02/20 06:52 Baso # (Auto) 0.2 10^3/uL (0.0-0.1) H 08/02/20 06:52 Nucleated RBC % (auto) 0 % 08/02/20 06:52 Nucleated RBCs # 0.0 /100WBC 08/02/20 06:52 PT 13.90 SECONDS (12.1-14.9) 08/02/20 06:52 INR 1.04 (0.8-1.2) 08/02/20 06:52 Specimen Type Arterial 08/02/20 06:48 Sample Site Brachial, right 08/02/20 06:48 ABG pH 7.50 (7.35-7.45) H 08/02/20 06:48 ABG pCO2 36.6 mmHg (35-45) 08/02/20 06:48 ABG pO2 110.0 mmHg (80.0-100.0) H 08/02/20 06:48 ABG HCO3 28.5 mmol/L (22-26) H 08/02/20 06:48 ABG O2 Saturation 99.2 08/02/20 06:48 ABG Base Excess 5.3 mmol/L (-2.0-2.0) H 08/02/20 06:48 Stepan Test N/a 08/02/20 06:48 A-a O2 Gradient 16.6 mmHg (5-10) H 08/02/20 06:48 Hematocrit 43.7 % (42-52) 08/02/20 06:48 Hgb O2 Saturation 97.2 % (95-100) 08/02/20 06:48 Carboxyhemoglobin 1.3 %THgb (0.4-20.1) 08/02/20 06:48 Methemoglobin 0.8 % (0.4-1.5) 08/02/20 06:48 Total Hemoglobin 14.3 g/dL (14-18) 08/02/20 06:48 Sodium 133.0 mmol/L (131-143) 08/02/20 06:48 Potassium 4.7 mmol/L (3.5-5.0) 08/02/20 06:48 Glucose 160.0 mg/dL (70-115) H 08/02/20 06:48 Ionized Calcium 1.1 mmol/L (1.1-1.4) 08/02/20 06:48 O2 Delivery Device Bipap 08/02/20 06:48 FiO2 40.0 % 08/02/20 06:48 Bid Writer ID [email or web address] 08/02/20 06:48 Sodium 135 mmol/L (136-145) L 08/02/20 06:52 Potassium 5.0 mmol/L (3.5-5.1) 08/02/20 06:52 Chloride 94 mmol/L (98-107) L 08/02/20 06:52 Carbon Dioxide 28 mmol/L (22-29) 08/02/20 06:52 Anion Gap 18.0 (5-19) 08/02/20 06:52 BUN 12 mg/dL (6-20) 08/02/20 06:52 Creatinine 4.7 mg/dL (0.7-1.2) H 08/02/20 06:52 GFR Calculation 13.1 mL/min (90-130) L 08/02/20 06:52 Glucose 153 mg/dL (65-115) H 08/02/20 06:52 POC Glucose 114 mg/dL (70-110) H 08/02/20 10:50 Calculated Osmolality 283 mOsm/kg (285-295) L 08/02/20 06:52 Calcium 8.4 mg/dL (8.5-10.5) L 08/02/20 06:52 Iron 36 ug/dL (59-158) L 08/02/20 06:52 TIBC 167 mcg/dl 08/02/20 06:52 % Saturation 21.5 % (20-50) 08/02/20 06:52 Unsat Iron Binding 131 ug/dL (112-347) 08/02/20 06:52 Troponin T Baseline 199 ng/L (0-15) H* 08/02/20 06:52 Troponin T 120 Minute 188.4 ng/L (0-15) H 08/02/20 09:37 Delta Troponin T -10.6 ABS# (0-10) L 08/02/20 09:37 Troponin T Hi Sens 6Hr 173.2 ng/L (0-15) H 08/02/20 12:49 Troponin T Hi Sens 6Hr Delta -25.8 ng/L (0-12) L 08/02/20 12:49 NT-Pro-B Natriuret Pep 79262 pg/mL (0-125) H 08/02/20 06:52 Triglycerides 127 mg/dL (0-150) 08/02/20 06:52 Cholesterol 197 mg/dL (0-200) 08/02/20 06:52 LDL Cholesterol, Calc 127 mg/dL (50-129) 08/02/20 06:52 Total VLDL Cholesterol 25 mg/dL (0-30) 08/02/20 06:52 HDL Cholesterol 45 mg/dL (60-100) L 08/02/20 06:52 Cholesterol/HDL Ratio 4.38 mg/dL (1.0-5.00) 08/02/20 06:52 Procalcitonin 0.20 ng/mL (0-0.5) 08/02/20 06:52 TSH 14.25 uIU/mL (0.27-4.20) H 08/02/20 06:52 Free T4 1.43 ng/dL (0.82-1.77) 08/02/20 06:32 Free T3 2.8 PG/ML (2.0-4.4) 08/02/20 06:32 Impressions Chest X-Ray 08/02/20 06:46 IMPRESSION: Hazy perihilar and bibasilar opacities are nonspecific. Differential includes pulmonary edema and pneumonia. Chest CT 08/02/20 09:13 IMPRESSION: 1. Multifocal patchy bilateral pulmonary ground-glass opacities. Differential includes pneumonia and/or pulmonary edema. 2. There are bilateral pleural effusions with underlying compressive atelectasis or infiltrate. 3. Multivessel atherosclerotic disease which involves the coronary arteries. Radiation Dose CTDIVOL = (mGy): DLP = 990.36 (mGy-cm) A&P Assessment and plan (1) Hypertensive emergency: Status: Acute (2) Acute respiratory distress: Status: Acute (3) Anginal equivalent: Status: Acute (4) Pulmonary edema: Status: Acute Qualifiers: Chronicity: acute Qualified Code(s): J81.0 - Acute pulmonary edema (5) ESRD (end stage renal disease): Status: Acute (6) Anxiety and depression: Status: Chronic (7) Diabetes mellitus, type II: Status: Acute Qualifiers: Diabetes mellitus complication detail: with peripheral angiopathy with gangrene Diabetes mellitus complication status: with circulatory complication 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 transplanted heart: [place] heart Qualified Code(s): I25.10 - Atherosclerotic heart disease of [place] coronary artery without angina pectoris (9) Acquired hypothyroidism: Status: Chronic (10) PAD (peripheral artery disease): Status: Acute Additional A&P Information Acute respiratory distress: Most likely secondary to congestive heart failure. Infectious source unlikely. Check blood culture, urine culture, urine Legionella, bacterial antigen, MRSA swab, sputum culture, procalcitonin. Check CT chest without contrast. For now hold off on starting any antibiotics. Restart if patient becomes febrile or hemodynamically unstable. Congestive heart failure most likely secondary to hypertensive urgency: None last week showed an EF 55% with grade 2 diastolic dysfunction, moderate to severe mitral annular calcification with trace MR. Lasix 80 mg twice daily. Dialysis as per nephrology. Daily weights. Strict input output charting. Hypertensive urgency: Goal blood pressure 180 systolics for now which would be 25% of his presenting blood pressure. Will increase his home medications. Hydralazine 100 mg 3 times daily, Imdur 60 twice daily, change metoprolol to Coreg 25 mg twice daily. Start patient on nicardipine drip. Stop nitro drip. If blood pressure does not improve will most likely add clonidine. Check renal Doppler to rule out other causes of secondary hypertension. If renal Doppler is negative follow-up for other causes of secondary hypertension. Angina equivalent: Lexiscan done on July 22 consistent with partially reversible perfusion defect in inferior and apical inferior soto with rae-infarct ischemia. Plan to treat medically for now as per cardiology. Continue aspirin. Check lipid panel. Start on Plavix 75 mg daily. Beta- cyndy as above. Troponin cycle. End-stage renal disease: On maintenance hemodialysis: As per nephrology. Type 2 diabetes mellitus: Check HbA1c. Renal carb consistent diet. Insulin sliding scale. Check TSH, iron panel, ferritin. Admit to ICU. Full code. Renal carb consistent diet. Heparin 5000 every 12 for DVT prophylaxis. Attestations Medical Necessity Statement*: Admission for more than 2 midnights for management of hypertensive urgency, acute respiratory distress because of pulmonary edema, angina equivalent, ESRD on maintenance hemodialysis Critical Care Time: The high probability of a clinically significant, sudden or life threatening deterioration of the patient's [cardiac, pulmonary, renal] system(s) required my full and direct attention, intervention and personal management. The critical care time is as shown. 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 [employer] Diagnoses Hypertensive emergency I16.1 Acute respiratory distress R06.03 Anginal equivalent I20.8 Pulmonary edema J81.0 Chronicity: acute ESRD (end stage renal disease) N18.6 Anxiety and depression F41.9; F32.9 Diabetes mellitus, type II E11.52 Diabetes mellitus complication detail: with peripheral angiopathy with gangrene Diabetes mellitus complication status: with circulatory complication Diabetes mellitus assisted insulin use: without intermodal owner operator truck driver use CAD (coronary artery disease) I25.10 Associated angina: without angina Coronary Disease-Associated Artery/Lesion type: [place] artery [place] vs. transplanted heart: [place] heart Acquired hypothyroidism E03.9 PAD (peripheral artery disease) I73.9
[2020-08-02] MEDS: nitroglycerin drip 50 MG/250 ML PREMIX IV (10:49)
[2020-08-02 10:53] LABS: Glucose Point of Care 114 mg/dL (70-110)
[2020-08-02 11:02] LABS: Free T4 Free Thyroxine 1.43 ng/dL (0.82-1.77); T3 Free 2.8 PG/ML (2.0-4.4)
[2020-08-02] MEDS: FUROsemide 10 mg/mL SDV 10mL 80 MG IVP ×2 (11:35→22:53)
[2020-08-02] MEDS: clopidogrel 75 mg Tablet PO (11:36)
[2020-08-02] MEDS: ALPRAZolam 0.25 mg Tablet PO (11:36)
[2020-08-02] MEDS: heparin 5,000 unit/mL INJ 1 mL 5000 UNIT SUBCUT ×2 (11:36→22:53)
[2020-08-02] MEDS: NIFEdipine ER (24 hr) 30 mg Tablet PO (12:50)
[2020-08-02 13:57] LABS: Troponin 5 6HR Delta -25.8 ng/L (0-12)
[2020-08-02 13:59] LABS: Troponin 5 6HR 173.2 ng/L (0-15)
--- NOTE | 2020-08-02 15:07 | PC.NURSE ---
recieved from er prior c/o of short of breath and frequent nonproductive cough ,o2 in use transport pt down for ct chest became nauseated and zofran given . nitro gtt slowly increased to rate of 90mcg blood pressure remains elevated Dr aware of with new orders
[2020-08-02] MEDS: nicardipine 20 MG/200 ML PREMIX 50 MG IV ×2 (16:19→20:30)
[2020-08-02 17:20] LABS: Glucose Point of Care 103 mg/dL (70-110)
[2020-08-02] MEDS: carvedilol 25 mg Tablet PO (17:29)
--- NOTE | 2020-08-02 19:21 | P.CONIM_ITS ---
Providers/Reason For Consult Consulting Physician/Specialty*: PODARALLA/TELENEPHROLOGY Reason for Consult*: ESRD mangement and dialysis need Attending Physician: Kyle Grubbs MD Primary Care Provider: ENRIQUE Ramirez History of Present Illness History of Present Illness Christiano Kearns is a 55 year old male presented to ER with shortness of breath, BP was fluctuating, had high readings, so admitted to ICU. Telenephrology was consulted for ESRD management and dialysis needs. Last dialysis was yesterday. No chest pain or shortness of breath when i saw him. No nausea, vomiting or diarrhea Review of Systems Const: Denies: fever(s), chills, body aches or night sweats Eyes: Denies: change in vision or blurry vision Card: Denies: chest pain or palpitations Resp: Reports: dyspnea and non-productive cough GI: Denies: abdominal pain, nausea, vomiting or diarrhea : Denies: flank pain Musc: Denies: extremity pain Skin/Breast: Denies: rash Neuro: Denies: weakness in extremities Psych: Denies: visual hallucinations Oscar/Lymph: Denies: easy bleeding Meds/Allergies Home Medications and Allergies Home Medications Medication Instructions Recorded Confirmed Last Taken Type hydrocodone 10 mg-acetaminophen 1 tab PO Q4H PRN tab 03/01/19 08/02/20 07/21/20 12:00 History 325 mg tablet glucometer #1 ea 07/28/19 08/02/20 Unknown Rx glucometer strips #100 each 07/28/19 08/02/20 Unknown Rx sennosides-docusate sodium 1 tab PO BID #60 tab 07/28/19 08/02/20 07/15/20 09:00 Rx Diabetic shoes with inserts and #1 ea 12/12/19 08/02/20 Unknown Rx toe filler levothyroxine 112 mcg tablet 112 mcg PO DAILY 30 Days #30 tab 03/17/20 08/02/20 07/17/20 09:00 Rx nifedipine 30 mg PO DAILY 07/22/20 08/02/20 07/20/20 20:00 History aspirin 81 mg PO DAILY #30 tab 07/23/20 08/02/20 Unknown Rx hydralazine 100 mg PO BID 30 Days #60 tab 07/23/20 08/02/20 Unknown Rx isosorbide mononitrate 60 mg PO DAILY 30 Days #30 tab 07/23/20 08/02/20 Unknown Rx metoprolol succinate 100 mg 100 mg PO BID tab 07/30/20 08/02/20 Unknown History tablet,extended release 24 hr zolpidem 10 mg PO BEDTIME PRN 08/02/20 08/02/20 Unknown History Allergies Allergy/AdvReac Type Severity Reaction Status Date / Time nitrofurantoin Allergy unknown Verified 07/30/20 16:00 clavulanic acid AdvReac Severe Nausea Verified 07/30/20 16:00 [From Augmentin] amoxicillin [From Augmentin] AdvReac Intermediate Nausea Verified 07/30/20 16:00 Current Medications Current Medications Generic Name Dose Route Start Last Admin Trade Name Freq PRN Reason Stop Dose Admin Alprazolam 0.25 mg 08/02/20 10:25 08/02/20 15:01 Alprazolam 0.25 Mg Tablet PO Not Given TID THEA Aspirin 81 mg 08/02/20 09:00 08/02/20 09:06 Aspirin 81 Mg Ec Tablet PO 81 mg DAILY THEA Administration Carvedilol 25 mg 08/02/20 18:00 08/02/20 17:29 Carvedilol 25 Mg Tablet PO 25 mg BID THEA Administration Clopidogrel Bisulfate 75 mg 08/02/20 10:25 08/02/20 11:36 Clopidogrel 75 Mg Tablet PO 75 mg DAILY THEA Administration Furosemide 80 mg 08/02/20 10:45 08/02/20 11:35 Furosemide 10 Mg/Ml Sdv 10ml IVP 80 mg Q12H THEA Administration Heparin Sodium (Beef Lung) 5,000 unit 08/02/20 10:45 08/02/20 11:36 Heparin 5,000 Unit/Ml Inj 1 Ml SUBCUT 5,000 unit Q12H THEA Administration Hydralazine HCl 100 mg 08/02/20 15:00 08/02/20 15:48 Hydralazine 50 Mg Tablet PO 100 mg TID THEA Administration Nicardipine/Sodium Chloride 20 mg in 200 mls @ 0 mls/hr 08/02/20 14:45 08/02/20 16:19 Cardene IV 5 mg/hr .Q0M THEA 50 mls/hr Administration Protocol Per Protocol Insulin Aspart 0 unit 08/02/20 12:00 08/02/20 17:19 Insulin Aspart 100 Unit/1 Ml SUBCUT Not Given WM&BEDTIME THEA Protocol Isosorbide Mononitrate 60 mg 08/02/20 18:00 08/02/20 17:29 Isosorbide Mononitrate Er 60 Mg Tablet PO 60 mg BID THEA Administration Ondansetron HCl 4 mg 08/02/20 10:28 08/02/20 10:34 Ondansetron 2 Mg/Ml Sdv 2 Ml IVP 4 mg Q4H PRN Administration NAUSEA AND VOMITING Pantoprazole Sodium 40 mg 08/02/20 09:00 08/02/20 17:[address] 40 Mg Tablet PO 40 mg BID THEA Administration Senna/Docusate Sodium 1 tab 08/02/20 09:00 08/02/20 17:29 Sennosides-Docusate Tablet PO 1 tab BID THEA Administration PFSH Acute PFSH: Medical History Acquired hypothyroidism Acquired spondylolisthesis Anxiety and depression CAD (coronary artery disease) Cardiac stent x1 Chronic hypertension Diabetes mellitus, type II Dyslipidemia End stage renal failure on dialysis Peritoneal dialysis normally, on HD since 08/2019 when peritoneal dialysis catheter removed, due to have replaced in [place] 07/24/20 Environmental and seasonal allergies Erectile dysfunction due to diseases classified elsewhere HPTH (hyperparathyroidism) Malignant hypertension PAD (peripheral artery disease) With critical lower limb ischemia 06/2019 requiring intervention with CSI atherectomy of the SFA followed by [id number] balloon angioplasty, CSI atherectomy of the tibial peroneal trunk and left anterior tibial followed by balloon angioplasty, reconstruction of the arch of the foot which was completely occluded. Peripheral vascular disease Polyneuropathy Protrusion of thoracic intervertebral disc Syrinx of spinal cord Vitamin D deficiency Surgical History Amputated toe of left foot due to gangrene 06/27/2019, with subsequent removal of all toes left foot 08/2019 at [place], [place] History of heart artery stent History of repair of right rotator cuff History of toe surgery Left great toe debridement Peritoneal dialysis catheter in place removed 08/2019, due to be replaced 07/24/2020 Family History Brother Cancer Mother Cancer Father Heart disease Social History Smoking and tobacco status: never smoked Second hand smoke exposure: No Alcohol intake: never Caregiver/support person: No Lives independently: Yes Housing: House Marital status: Legally Highest education level completed: Some College, No Degree service: No Current occupational status: disabled Pets and animals: Yes History of recent travel: No Current gender identity: Male Vitals/I&O/Wt Last Vital Signs Temp 98.6 F 08/02/20 08:53 Pulse 67 08/02/20 16:45 Resp 21 H 08/02/20 16:45 BP 201/84 08/02/20 16:45 Pulse Ox 96 08/02/20 16:45 08/02/20 08/02/20 08/02/20 06:59 14:59 22:59 Intake Total 91.15 / 91.15 358.85 / 450.00 Output Total 200 / 200 Balance 91.15 / 91.15 158.85 / 250.00 Weight last 48 hrs Weight 95.708 kg Physical Exam Const: COMMON NORMALS: no acute distress and patient oriented x3 GENERAL APPEARANCE: cooperative ORIENTATION/CONSCIOUSNESS: Yes awake Resp: AUSCULTATION: rales Cardio: COMMON NORMALS: S1 normal heart sound present and S2 normal heart sound present HEART SOUNDS: S1 normal heart sound present and S2 normal heart sound present GI: AUSCULTATION: Yes normoactive bowel sounds Extremity: GENERAL: Yes edema Neuro: COMMON NORMALS: patient oriented x3 Skin: COMMON NORMALS: no rashes or lesions noted GENERAL SKIN EXAM: no rashes or lesions noted Urinary Catheter Management^: Wang: Cath Placed During This Visit: yes Reason for Continuing Indwelling Catheter: Accurate Measurement of Urinary O utput in Critically Ill Patients Urinary Catheter Date of Insertion: 08/02/20 Urinary Catheter Time of Insertion: 12:01 Data Micro: Micro: Microbiology 08/02/20 11:45 Bacterial Antigens - Final Urine Kidney 08/02/20 11:45 Legionella Urinary Antigen - Final Urine Ureter 08/02/20 09:20 MRSA Culture - Fin al Nose A&P Assessment and plan (1) ESRD (end stage renal disease): No acute indication for dialysis today. Will tentatively plan for dialysis on tuesday Status: Acute (2) HTN (hypertension): Adjust meds as needed to control BP Status: Acute Qualifiers: Hypertension type: essential hypertension Qualified Code(s): I10 - Essential (primary) hypertension Consult Attestations Medical Necessity Statement: Uncontrolled HTN, ESRD Coding Level of Care Code Acute Automatic Packer Operator for [facility] Fwd Diagnoses ESRD (end stage renal disease) N18.6 HTN (hypertension) I10 Hypertension type: essential hypertension
[2020-08-02 21:31] LABS: Glucose Point of Care 98 mg/dL (70-110)
[2020-08-03] VITALS (38 sets, daily range): BP systolic 116–184; BP diastolic 55–97; PULSE 56–83; RESP 12–35; TEMP 36.4–36.7; O2SAT 90–98
--- NOTE | 2020-08-03 06:25 | PC.NURSE ---
Shift summary Patient has been resting all night sleeping off and on, cardine drip was turned of at 2100 due to him being hypotensive and had to hold all of his meds to keep him from becoming more hypotensive, his blood pressure started improving after midnight and from 4 on it has slowly creeped back up but has maintained under systolic 160 on average so haven't had to turn the drip back on yet. Patient had only 200 out of his Wang after getting 80of iv push Lasix, but patient does not make much urine as a dialysis patient. Patient has been calm and cooperative all night, has not complained of any pain. If he can maintain off the drip all night and be managed with orals he can get out of the ICU
--- NOTE | 2020-08-03 07:00 | USR_ITS ---
PROCEDURE INFORMATION: Exam: US Retroperitoneal; Complete; Kidneys and Bladder Exam date and time: 08/03/2020 7:00 AM Age: 55 years old Clinical indication: Other: Uncontrolled hypertension; Additional info: R/O secondary HTN, npo after midnight 08-02-20 TECHNIQUE: Imaging protocol: Real-time ultrasound of the retroperitoneum with image documentation. Complete exam focused on the kidneys and bladder. COMPARISON: US Renal Kidney Structu* [id number] 01/04/2019 3:41 PM FINDINGS: Right kidney: The right kidney is atrophic. The right kidney measures 8.2 cm in length. Kidney is poorly defined but no definite renal masses are seen. There is no significant hydronephrosis. Renal artery Doppler study could not be performed because the renal arteries could not be adequately identified. Left kidney: The left kidney is atrophic. The left kidney measures 8.2 cm in length. The left kidney is poorly defined but no definite renal masses are seen. There is no significant hydronephrosis. Urinary bladder: The urinary bladder is collapsed around a Wang catheter. US/US renal BI* [id number] IMPRESSION: Bilateral renal atrophy. The renal arteries could not be adequately defined for renal artery Doppler study.
[2020-08-03 07:08] LABS: Basophils # 0.1 10^3/uL (0.0-0.1); Basophils % 1.1 %; Eosinophils # 0.2 10^3/uL (0.0-0.8); Eosinophils % 1.5 %; Hematocrit 39.2 % (42.0-52.0); Hemoglobin 11.8 g/dL (11.7-16.6); Lymphocytes # 1.2 10^3/uL (0.8-4.8); Lymphocytes % 10.7 %; Mean Corpuscular HGB Conc 30.1 g/dL (30.0-36.0); Mean Corpuscular Volume 89.7 fL (80-94); Mean Platelet Volume 9.1 fL (7.4-10.4); Monocytes # 1.2 10^3/uL (0.2-0.9); Neutrophils # 8.26 10^3/uL (1.8-7.7); Neutrophils % 75.3 %; Nucleated Red Blood Cells % 0 %; Platelet Count 336 10^3/cmm (130-400); Red Blood Count 4.37 10^6/uL (4.1-5.3); Red Cell Distribution Width 16.9 % (12.1-15.1)
[2020-08-03 07:30] LABS: Alanine Aminotransferase < 5 U/L (0-41); Albumin Level 2.9 g/dL (3.5-5.2); Alkaline Phosphatase 77 IU/L (40-130); Anion Gap 13.2 (5-19); Aspartate Amino Transferase 6 U/L (0-40); Blood Urea Nitrogen 19 mg/dL (6-20); Calcium 7.5 mg/dL (8.5-10.5); Carbon Dioxide 26 mmol/L (22-29); Chloride 99 mmol/L (98-107); Globulin 2.5 g/dL (1.3-4.6); Glomerular Filtration Rate 9.5 mL/min (90-130); Glucose 98 mg/dL (65-115); Magnesium 2.1 mg/dL (1.7-2.3); Osmolality Calculated 278 mOsm/kg (285-295); Phosphorus 4.9 mg/dL (2.5-4.5); Potassium 5.2 mmol/L (3.5-5.1); Sodium 133 mmol/L (136-145); Total Bilirubin 0.4 mg/dL (0.15-1.2); Total Protein 5.4 g/dL (6.6-8.7)
[2020-08-03 07:44] LABS: Glucose Point of Care 105 mg/dL (70-110)
[2020-08-03] MEDS: levothyroxine 150 mcg Tablet PO (08:09)
[2020-08-03] MEDS: clopidogrel 75 mg Tablet PO (08:09)
[2020-08-03] MEDS: aspirin 81 mg EC Tablet PO (08:09)
[2020-08-03] MEDS: pantoprazole DR 40 mg Tablet PO ×2 (08:09→17:11)
[2020-08-03] MEDS: carvedilol 25 mg Tablet PO ×2 (08:09→17:12)
[2020-08-03] MEDS: hyDRALAzine 50 mg Tablet 100 MG PO ×3 (08:09→21:23)
[2020-08-03] MEDS: sennosides-docusate Tablet 1 TAB PO (08:09)
[2020-08-03] MEDS: isosorbide mononitrate ER 60 mg Tablet PO ×2 (08:10→17:11)
[2020-08-03 08:20] LABS: Estmated Average Glucose 82; Hemoglobin A1C 4.5 % (4.0-6.0)
--- NOTE | 2020-08-03 10:13 | PC.CHAP ---
Pastoral Care Encounter/Spiritual Assessment Type of Contact [] Declined nib inspector visit [] Patient/Family/Request visit [] Outpatient visit [] Follow-up visit [] Physician referral [] Code/Alert [XX] Routine visit [] Staff referral [] Actively dying [XX] Patient sleeping [] Family support [] [] Out of room [] Palliative care [] [] Receiving care in room [] Pre-surgical visit [] Trauma [] Long length of stay [XX] ICU visit [] Other: Relational/Emotional Strength [] Patient feels connected with others/family/visitors/staff [] Distress [] Loneliness/isolation [] Abandonment Spirituality of Patient [] Person of Charity [] Attends Mormonism of their Charity [] Believes in Prayer [] Reads Bible or Roman Catholic materials [] There are Spiritual issues to be addressed Calculating Machine Operator Interventions [] Prayer [] Active listening [] Non-anxious presence [] Spiritual/emotional support [] Crisis/trauma care [] Spiritual counseling [] Bereavement support [] Provided bereavement packet [] Provided Bible/devotional materials [] Provided toy/stuffed animal, coloring book to patient or family member [] Provided Communion [] Anointing/[place] [] Salvation [] Completed spiritual assessment [] Other: Impact on Illness or Injury [] Angry [] Fearful [] Anxious [] Often cries [] Exhaustion [] Unable to work [] Unable to attend restoration [] Unable to walk/stand [] Unable to read [] Unable to drive [] Unable to eat/drink [] Unable to sleep [] Unable to be with family [] Patient intubated [] Other: Summary Time spent with patient
[2020-08-03] MEDS: FUROsemide 10 mg/mL SDV 10mL 80 MG IVP (10:57)
[2020-08-03] MEDS: ALPRAZolam 0.5 mg Tablet 0.25 MG PO (10:58)
[2020-08-03] MEDS: heparin 5,000 unit/mL INJ 1 mL 5000 UNIT SUBCUT ×2 (10:58→22:07)
--- NOTE | 2020-08-03 11:05 | P.PN_ITS ---
Subjective Subjective: Interval history: No acute events overnight. Blood pressure is a lot better today. Cardene drip was stopped earlier in the day today. Currently on examination is on room air saturating 95%. States he is feeling a lot better. Denies any nausea, vomiting, headache, chest pain, difficulty in breathing currently. Vitals/I&O/Wt Last Vital Signs Temp 97.5 F L 08/03/20 04:15 Pulse 77 08/03/20 08:00 Resp 25 H 08/03/20 08:00 BP 151/97 08/03/20 08:00 Pulse Ox 95 08/03/20 08:00 08/02/20 08/03/20 08/03/20 22:59 06:59 14:59 Intake Total 596.35 / 687.50 200 / 200 Output Total 200 / 200 200 / 400 Balance 396.35 / 487.50 -200 / 287.50 200 / 200 Weight last 48 hrs Weight 100.244 kg Weight 95.708 kg Physical Exam Narrative: EXAM NARRATIVE: General: No acute distress, AO x3, anxious, on 3 L nasal cannula HEENT: PERRLA, pupils bilaterally equal and reactive Chest: Normal vesicular breath sounds, no added sounds, equal good air entry bilaterally CVS: S1-S2 regular, no murmurs, no tachycardia, no gallops, no rubs Abdomen: Soft, nontender, no organomegaly, bowel sounds present, renal bruit present Neuro: No focal deficits, no facial deformity, AO x3, power 5/5 in all limbs Urinary Catheter Management^: Wang: Cath Placed During This Visit: yes Reason for Continuing Indwelling Catheter: Accurate Measurement of Urinary Output in Critically Ill Patients Urinary Catheter Date of Insertion: 08/02/20 Urinary Catheter Time of Insertion: 12:01 Data : 08/03/20 06:54 08/03/20 06:54 Micro: Microbiology 08/02/20 20:45 Blood Culture - Preliminary Blood SPECIMEN COLLECTED 08/02/20 20:40 Blood Culture - Preliminary Blood SPECIMEN COLLECTED 08/02/20 11:45 Bacterial Antigens - Final Urine Kidney 08/02/20 11:45 Legionella Urinary Antigen - Final Urine Ureter 08/02/20 09:20 MRSA Culture - Final Nose A&P Assessment and plan (1) Hypertensive emergency: Status: Acute (2) Acute respiratory distress: Status: Acute (3) Anginal equivalent: Status: Acute (4) Pulmonary edema: Status: Acute Qualifiers: Chronicity: acute Qualified Code(s): J81.0 - Acute pulmonary edema (5) ESRD (end stage renal disease): Status: Acute (6) Anxiety and depression: Status: Chronic (7) Diabetes mellitus, type II: Status: Acute Qualifiers: Diabetes mellitus complication detail: with peripheral angiopathy with gangrene Diabetes mellitus complication status: with circulatory complication Diabetes mellitus prison insulin use: without predatory animal exterminator use Qualified Code(s): E11.52 - Type 2 diabetes mellitus with diabetic peripheral angiopathy with gangrene (8) CAD (coronary artery disease): Status: Acute Qualifiers: Associated angina: without angina Coronary Disease-Associated Artery/Lesion type: seminole artery [place] vs. transplanted heart: seminole heart Qualified Code(s): I25.10 - Atherosclerotic heart disease of seminole coronary artery without angina pectoris (9) Acquired hypothyroidism: Status: Chronic (10) PAD (peripheral artery disease): Status: Acute Additional A&P Information Acute respiratory distress: Resolved. Most likely secondary to congestive heart failure. Infectious source unlikely. Check blood culture, urine culture, urine Legionella, bacterial antigen, MRSA swab, sputum culture, procalcitonin. Check CT chest without contrast. For now hold off on starting any antibiotics. Restart if patient becomes febrile or hemodynamically unstable. Congestive heart failure most likely secondary to hypertensive urgency: None last week showed an EF 55% with grade 2 diastolic dysfunction, moderate to severe mitral annular calcification with trace MR. Change to oral Lasix 80 mg twice daily. Dialysis as per nephrology. Daily weights. Strict input output charting. Hypertensive urgency: Goal blood pressure less than 140/90 mmHg now. Home medications changed and uptitrated. Hydralazine 100 mg 3 times daily, Imdur 60 twice daily, Coreg 25 mg twice daily. Start patient on clonidine 0.2 mg 3 times daily. Patient would do better with a weekly patch if possible on discharge. Check renal Doppler to rule out other causes of secondary hypertension. If renal Doppler is negative follow-up for other causes of secondary hypertension. Angina equivalent: Lexiscan done on July 22 consistent with partially reversible perfusion defect in inferior and apical inferior soto with rae-infarct ischemia. Plan to treat medically for now as per cardiology. Continue aspirin, Plavix 75 mg daily. Beta-cyndy as above, nitrate uptitrated. Lipid panel results appreciated Troponin cycle trended down. Currently patient is chest pain-free.. End-stage renal disease: On maintenance hemodialysis: Tuesday, Tuesday, Tuesday. As per nephrology. Type 2 diabetes mellitus: 4.5. Stop insulin sliding scale. Change diet to renal cardiac diet. Unit. Full code. Renal cardiac dialysis diet. Heparin 5000 every 12 for DVT prophylaxis. Attestations Medical Necessity Statement*: Requires further hospitalization for management of congestive heart failure secondary to hypertensive emergency, end-stage renal disease on hemodialysis Time Spent in Patient Care: Greater than 35 minutes (>than 50% of time spent in counselling and/or direct pt care on unit) . Coding Level of Care Code Acute Merry Go Round Attendant for [facility] Fwd Diagnoses Hypertensive emergency I16.1 Acute respiratory distress R06.03 Anginal equivalent I20.8 Pulmonary edema J81.0 Chronicity: acute ESRD (end stage renal disease) N18.6 Anxiety and depression F41.9; F32.9 Diabetes mellitus, type II E11.52 Diabetes mellitus complication detail: with peripheral angiopathy with gangrene Diabetes mellitus complication status: with circulatory complication Diabetes mellitus prison insulin use: without prison use CAD (coronary artery disease) I25.10 Associated angina: without angina Coronary Disease-Associated Artery/Lesion type: seminole artery [place] vs. transplanted heart: seminole heart Acquired hypothyroidism E03.9 PAD (peripheral artery disease) I73.9
[2020-08-03] MEDS: cloNIDine 0.1 mg Tablet 0.2 MG PO ×3 (11:54→21:23)
--- NOTE | 2020-08-03 13:56 | PM.PN ---
Subjective Subjective: Interval history: I am seeing him in follow up for ESRD management and dialysis needs. BP better controlled today. No shortness of breath Medications: Reviewed: Yes Vitals/I&O/Wt Last Vital Signs Temp 98 F 08/03/20 12:00 Pulse 83 08/03/20 12:00 Resp 35 H 08/03/20 12:00 BP 182/83 08/03/20 12:00 Pulse Ox 93 08/03/20 12:00 08/02/20 08/03/20 08/03/20 22:59 06:59 14:59 Intake Total 596.35 / 687.50 400 / 400 Output Total 200 / 200 200 / 400 150 / 150 Balance 396.35 / 487.50 -200 / 287.50 250 / 250 Weight last 48 hrs Weight 100.244 kg Weight 95.708 kg Physical Exam Const: COMMON NORMALS: no acute distress and patient oriented x3 GENERAL APPEARANCE: cooperative and comfortable ORIENTATION/CONSCIOUSNESS: Yes awake Resp: AUSCULTATION: crackles Cardio: COMMON NORMALS: S1 normal heart sound present and S2 normal heart sound present HEART SOUNDS: S1 normal heart sound present and S2 normal heart sound present GI: AUSCULTATION: Yes normoactive bowel sounds Extremity: GENERAL: Yes edema Neuro: COMMON NORMALS: patient oriented x3 Skin: COMMON NORMALS: no rashes or lesions noted GENERAL SKIN EXAM: no rashes or lesions noted Urinary Catheter Management^: Wang: Cath Placed During This Visit: yes Reason for Continuing Indwelling Catheter: Accurate Measurement of Urinary Output in Critically Ill Patients Urinary Catheter Date of Insertion: 08/02/20 Urinary Catheter Time of Insertion: 12:01 Data : 08/03/20 06:54 08/03/20 06:54 Micro: Microbiology 08/02/20 20:45 Blood Culture - Preliminary Blood SPECIMEN COLLECTED 08/02/20 20:40 Blood Culture - Preliminary Blood SPECIMEN COLLECTED 08/02/20 11:45 Bacterial Antigens - Final Urine Kidney 08/02/20 11:45 Legionella Urinary Antigen - Final Urine Ureter 08/02/20 09:20 MRSA Culture - Final Nose A&P Assessment and plan (1) ESRD (end stage renal disease): Will plan HD tommorrow for 3.5hrs, 2k, 2.5Ca & try to pull atleast 2-3 lit of fluid if tolerated Status: Acute (2) HTN (hypertension): BP better controlled now Status: Acute Qualifiers: Hypertension type: essential hypertension Qualified Code(s): I10 - Essential (primary) hypertension Attestations Medical Necessity Statement*: ESRD Coding Level of Care Code Acute Duct Layer Helper for [facility] Fwd Diagnoses ESRD (end stage renal disease) N18.6 HTN (hypertension) I10 Hypertension type: essential hypertension
--- NOTE | 2020-08-03 15:13 | PC.NURSE ---
transfer to room 105 after report
[2020-08-03 17:03] LABS: Glucose Point of Care 126 mg/dL (70-110)
[2020-08-03] MEDS: FUROsemide 40 mg Tablet 80 MG PO (17:12)
[2020-08-03 20:12] LABS: Glucose Point of Care 195 mg/dL (70-110)
[2020-08-03] MEDS: zolpidem 5 mg Tablet 10 MG PO (21:22)
[2020-08-04] VITALS (18 sets, daily range): BP systolic 155–213; BP diastolic 69–91; PULSE 58–68; RESP 12–23; TEMP 36.6–37.2; O2SAT 94–97
[2020-08-04 06:08] LABS: Basophils # 0.1 10^3/uL (0.0-0.1); Basophils % 1.2 %; Eosinophils # 0.2 10^3/uL (0.0-0.8); Eosinophils % 2.4 %; Hematocrit 35.1 % (42.0-52.0); Hemoglobin 10.8 g/dL (11.7-16.6); Lymphocytes # 1.2 10^3/uL (0.8-4.8); Lymphocytes % 12.6 %; Mean Corpuscular HGB Conc 30.8 g/dL (30.0-36.0); Mean Corpuscular Hemoglobin 26.9 pg (28.0-34.0); Mean Corpuscular Volume 87.5 fL (80-94); Mean Platelet Volume 9.8 fL (7.4-10.4); Monocytes # 1.2 10^3/uL (0.2-0.9); Monocytes % 12.7 %; Neutrophils # 6.47 10^3/uL (1.8-7.7); Neutrophils % 70.8 %; Nucleated Red Blood Cells % 0 %; Platelet Count 266 10^3/cmm (130-400); Red Blood Count 4.01 10^6/uL (4.1-5.3); Red Cell Distribution Width 16.9 % (12.1-15.1); White Blood Count 9.1 10^3/uL (4.0-10.0)
[2020-08-04 08:09] LABS: Glucose Point of Care 110 mg/dL (70-110)
[2020-08-04 08:13] LABS: Alanine Aminotransferase < 5 U/L (0-41); Albumin Level 2.8 g/dL (3.5-5.2); Alkaline Phosphatase 72 IU/L (40-130); Aspartate Amino Transferase 7 U/L (0-40); Blood Urea Nitrogen 31 mg/dL (6-20); Calcium 7.5 mg/dL (8.5-10.5); Carbon Dioxide 24 mmol/L (22-29); Chloride 96 mmol/L (98-107); Globulin 2.5 g/dL (1.3-4.6); Glomerular Filtration Rate 6.9 mL/min (90-130); Glucose 98 mg/dL (65-115); Osmolality Calculated 283 mOsm/kg (285-295); Sodium 133 mmol/L (136-145); Total Bilirubin 0.3 mg/dL (0.15-1.2); Total Protein 5.3 g/dL (6.6-8.7)
[2020-08-04] MEDS: aspirin 81 mg EC Tablet PO (08:13)
[2020-08-04] MEDS: FUROsemide 40 mg Tablet 80 MG PO ×2 (08:13→16:01)
[2020-08-04] MEDS: sennosides-docusate Tablet 1 TAB PO ×2 (08:13→17:57)
[2020-08-04] MEDS: isosorbide mononitrate ER 60 mg Tablet PO ×2 (08:13→17:57)
[2020-08-04] MEDS: cloNIDine 0.1 mg Tablet 0.2 MG PO (08:13)
[2020-08-04] MEDS: clopidogrel 75 mg Tablet PO (08:13)
[2020-08-04] MEDS: carvedilol 25 mg Tablet PO ×2 (08:13→17:57)
[2020-08-04] MEDS: levothyroxine 150 mcg Tablet PO (08:13)
[2020-08-04] MEDS: hyDRALAzine 50 mg Tablet 100 MG PO ×3 (08:13→20:49)
[2020-08-04] MEDS: pantoprazole DR 40 mg Tablet PO ×2 (08:14→17:57)
[2020-08-04 08:40] LABS: Anion Gap 18.3 (5-19); Potassium 5.3 mmol/L (3.5-5.1)
--- NOTE | 2020-08-04 08:48 | PM.PN ---
Subjective Subjective: Interval history: feels better. denies complaints Medications: Reviewed: Yes Medication Review Details: Current Medications Hydrocodone Bitart/Acetaminophen (Hydrocodone-Acetaminophen 5-325 Mg Tablet) 1 tab PO Q8H PRN PRN Reason: MODERATE PAIN Albuterol Sulfate (Albuterol 2.5 Mg/0.5 Ml Neb) 2.5 mg INHALATION Q4H.RESPIRATORY PRN PRN Reason: SHORTNESS OF BREATH Alprazolam (Alprazolam 0.5 Mg Tablet) 0.25 mg PO TID PRN PRN Reason: anxiety Aspirin (Aspirin 81 Mg Ec Tablet) 81 mg PO DAILY [facility] Last Admin: 08/04/20 08:13 Dose: 81 mg Documented by: Bisacodyl (Bisacodyl 5 Mg Tablet) 10 mg PO DAILY PRN; Protocol PRN Reason: Constipation (see protocol) Carvedilol (Carvedilol 25 Mg Tablet) 25 mg PO BID [facility] Last Admin: 08/04/20 08:13 Dose: 25 mg Documented by: Clonidine HCl (Clonidine 0.1 Mg Tablet) 0.2 mg PO TID [facility] Last Admin: 08/04/20 08:13 Dose: 0.2 mg Documented by: Clopidogrel Bisulfate (Clopidogrel 75 Mg Tablet) 75 mg PO DAILY [facility] Last Admin: 08/04/20 08:13 Dose: 75 mg Documented by: Dextrose (Dextrose 50% Syringe 50 Ml) 25 ml IVP ONCE PRN; Protocol PRN Reason: hypoglycemia protocol Dextrose (Dextrose 50% Syringe 50 Ml) 50 ml IVP PRN PRN; Protocol PRN Reason: hypoglycemia protocol Furosemide (Furosemide 40 Mg Tablet) 80 mg PO BID@08,16 [facility] Last Admin: 08/04/20 08:13 Dose: 80 mg Documented by: Glucagon (Glucagon 1 Mg/Ml Inj 1 Ml) 1 mg IM ONCE PRN; Protocol PRN Reason: Adult Acute Hypoglycemia Prot. Heparin Sodium (Beef Lung) (Heparin 5,000 Unit/Ml Inj 1 Ml) 5,000 unit SUBCUT Q12H [facility] Last Admin: 08/03/20 22:07 Dose: 5,000 unit Documented by: Hydralazine HCl (Hydralazine 50 Mg Tablet) 100 mg PO TID [facility] Last Admin: 08/04/20 08:13 Dose: 100 mg Documented by: Dextrose (D5w) 500 mls @ 100 mls/hr IV ONCE PRN; Protocol PRN Reason: Adult Acute Hypoglycemia Prot Insulin Aspart (Insulin Aspart 100 Unit/1 Ml) 0 unit SUBCUT WM&BEDTIME [facility]; Protocol Last Admin: 08/04/20 08:14 Dose: Not Given Documented by: Isosorbide Mononitrate (Isosorbide Mononitrate Er 60 Mg Tablet) 60 mg PO BID [facility] Last Admin: 08/04/20 08:13 Dose: 60 mg Documented by: Lactulose (Lactulose Oral Liq 20 Gm/30 Ml Udc) 10 gm PO DAILY PRN; Protocol PRN Reason: Constipation (see protocol) Levothyroxine Sodium (Levothyroxine 150 Mcg Tablet) 150 mcg PO DAILY [facility] Last Admin: 08/04/20 08:13 Dose: 150 mcg Documented by: Morphine Sulfate (Morphine 4 Mg/Ml Sdv 1 Ml) 1 mg IVP Q4H PRN PRN Reason: SHORTNESS OF BREATH Ondansetron HCl (Ondansetron 2 Mg/Ml Sdv 2 Ml) 4 mg IVP Q4H PRN PRN Reason: NAUSEA AND VOMITING Last Admin: 08/02/20 10:34 Dose: 4 mg Documented by: Pantoprazole Sodium (Pantoprazole Dr 40 Mg Tablet) 40 mg PO BID [facility] Last Admin: 08/04/20 08:14 Dose: 40 mg Documented by: Senna/Docusate Sodium (Sennosides-Docusate Tablet) 1 tab PO BID [facility] Last Admin: 08/04/20 08:13 Dose: 1 tab Documented by: Zolpidem Tartrate (Zolpidem 5 Mg Tablet) 10 mg PO BEDTIME PRN PRN Reason: Insomnia Last Admin: 08/03/20 21:22 Dose: 10 mg Documented by: Vitals/I&O/Wt Last Vital Signs Temp 98.4 F 08/04/20 08:00 Pulse 64 08/04/20 08:00 Resp 18 08/04/20 08:00 BP 155/69 08/04/20 08:13 Pulse Ox 94 08/04/20 08:00 08/03/20 08/04/20 08/04/20 22:59 06:59 14:59 Intake Total 522.5 / 922.5 120 / 1042.5 240 / 240 Output Total 100 / 250 0 / 0 Balance 422.5 / 672.5 120 / 792.5 240 / 240 Weight last 48 hrs Weight 98.702 kg Weight 100.244 kg Physical Exam Narrative: EXAM NARRATIVE: vs improved on multiple meds comfortable in bed, NARD heent- nc/at, eomi, anicteric neck - supple lungs clear heart reg, no rub abd soft, nt, nd, +BS ext no edema neuro- a,a, o x 3 dialysis access RT IJ Permacath pt seen and examined w/ RN- telehealth visit Urinary Catheter Management^: Wang: Cath Placed During This Visit: yes, but has since been removed by the nurse Reason for Continuing Indwelling Catheter: Accurate Measurement of Urinary Output in Critically Ill Patients Urinary Catheter Date of Insertion: 08/02/20 Urinary Catheter Time of Insertion: 12:01 Date Urinary Catheter Removed: 08/03/20 Time Urinary Catheter Discontinued: 12:00 Data : 08/04/20 04:34 08/04/20 07:46 Micro: Microbiology 08/02/20 20:45 Blood Culture - Preliminary Blood NEGATIVE TO DATE 08/02/20 20:40 Blood Culture - Preliminary Blood NEGATIVE TO DATE A&P Assessment and plan (1) ESRD (end stage renal disease): Will plan HD today for 3.5hrs, 2k, 2.5Ca & try to pull 2-3 lit of fluid if tolerated DM control per medicine hgb okay Status: Acute (2) HTN (hypertension): BP better controlled now -will wean down meds and attempt to lower EDW Angina equivalent: Lexiscan done on July 22 consistent with partially reversible perfusion defect in inferior and apical inferior soto with rae-infarct ischemia. Plan to treat medically for now as per cardiology. Continue aspirin, Plavix 75 mg daily. Beta-cyndy as above, nitrate uptitrated. Status: Acute Qualifiers: Hypertension type: essential hypertension Qualified Code(s): I10 - Essential (primary) hypertension Attestations Medical Necessity Statement*: per medicine Time Spent in Patient Care: 16 - 35 minutes Coding Level of Care Code Acute Egg Breaker for [facility] Diagnoses ESRD (end stage renal disease) N18.6 HTN (hypertension) I10 Hypertension type: essential hypertension
[2020-08-04] MEDS: heparin, porcine 1,000 unit/mL INJ 10 mL HE (12:45)
--- NOTE | 2020-08-04 13:49 | PC.NURSE ---
Dr. Jones updated on patient condition. BP 205/88 HR 77. Patient asymptomatic. Verbal order to administer 1500 antihypertensives now then reassess BP in one hour. RBVO.
[2020-08-04] MEDS: cloNIDine 0.1 mg Tablet PO ×2 (14:05→20:48)
--- NOTE | 2020-08-04 15:56 | PM.PN ---
Subjective Subjective: Interval history: Patient was seen and examined this morning, received hemodialysis today, post hemodialysis blood pressure continues to be high. Vitals/I&O/Wt Last Vital Signs Temp 98.6 F 08/04/20 12:00 Pulse 64 08/04/20 12:00 Resp 16 08/04/20 12:00 BP 213/90 08/04/20 14:05 Pulse Ox 94 08/04/20 12:00 08/04/20 08/04/20 08/04/20 06:59 14:59 22:59 Intake Total 120 / 1042.5 480 / 480 Output Total 0 / 0 Balance 120 / 792.5 480 / 480 Weight last 48 hrs Weight 98.702 kg Weight 100.244 kg Physical Exam Const: COMMON NORMALS: patient oriented x3 HENMT: COMMON NORMALS: normocephalic and atraumatic HEAD & SCALP: normocephalic and atraumatic Eye: COMMON NORMALS: no scleral icterus GENERAL EYE: appearance normal, both eyes and all related structures Chest: COMMONS NORMALS: normal inspection of the chest CHEST: Yes Symmetrical chest wall rise Resp: COMMON NORMALS: clear to auscultation bilaterally EFFORT & INSPECTION: Yes symmetric chest movement AUSCULTATION: clear to auscultation bilaterally Cardio: COMMON NORMALS: regular rate, regular rhythm, S1 normal heart sound present, S2 normal heart sound present, No gallops present (Cardio), No murmurs present (Cardio), No rub (Cardio) and Peripheral pulses 2+ throughout RATE: regular rate RHYTHM: regular rhythm HEART SOUNDS: S1 normal heart sound present and S2 normal heart sound present PERIPHERAL PULSES: Peripheral pulses 2+ throughout GI: COMMON NORMALS: Normal to inspection, nondistended, normoactive bowel sounds present, Soft to palpation, non-tender, No hepatosplenomegaly present and no masses AUSCULTATION: Yes normoactive bowel sounds PALPATION: Yes Soft to palpation and Yes No hepatosplenomegaly present RECTAL EXAM: Yes deferred Extremity: COMMON NORMALS: no clubbing, cyanosis or edema and no pedal edema Neuro: COMMON NORMALS: patient oriented x3 Urinary Catheter Management^: Wang: Cath Placed During This Visit: yes, but has since been removed by the nurse Reason for Continuing Indwelling Catheter: Accurate Measurement of Urinary Output in Critically Ill Patients Urinary Catheter Date of Insertion: 08/02/20 Urinary Catheter Time of Insertion: 12:01 Date Urinary Catheter Removed: 08/03/20 Time Urinary Catheter Discontinued: 12:00 Data : 08/04/20 04:34 08/04/20 07:46 Micro: Microbiology 08/02/20 20:45 Blood Culture - Preliminary Blood NEGATIVE TO DATE 08/02/20 20:40 Blood Culture - Preliminary Blood NEGATIVE TO DATE A&P Assessment and plan (1) Hypertensive emergency: Status: Acute (2) Acute respiratory distress: Status: Acute (3) Anginal equivalent: Status: Acute (4) Pulmonary edema: Status: Acute Qualifiers: Chronicity: acute Qualified Code(s): J81.0 - Acute pulmonary edema (5) ESRD (end stage renal disease): Status: Acute (6) Anxiety and depression: Status: Chronic (7) Diabetes mellitus, type II: Status: Acute Qualifiers: Diabetes mellitus group home insulin use: without group home use Diabetes mellitus complication status: with circulatory complication Diabetes mellitus complication detail: with peripheral angiopathy with gangrene Qualified Code(s): E11.52 - Type 2 diabetes mellitus with diabetic peripheral angiopathy with gangrene (8) CAD (coronary artery disease): Status: Acute Qualifiers: Coronary Disease-Associated Artery/Lesion type: [place] artery [place] vs. transplanted heart: [place] heart Associated angina: without angina Qualified Code(s): I25.10 - Atherosclerotic heart disease of [place] coronary artery without angina pectoris (9) Acquired hypothyroidism: Status: Chronic (10) PAD (peripheral artery disease): Status: Acute Additional A&P Information Acute respiratory distress: Resolved. Most likely secondary to congestive heart failure. Infectious source unlikely. Check blood culture, urine culture, urine Legionella, bacterial antigen, MRSA swab, sputum culture, procalcitonin. Check CT chest without contrast. For now hold off on starting any antibiotics. Restart if patient becomes febrile or hemodynamically unstable. Congestive heart failure most likely secondary to hypertensive urgency: None last week showed an EF 55% with grade 2 diastolic dysfunction, moderate to severe mitral annular calcification with trace MR. Change to oral Lasix 80 mg twice daily. Dialysis as per nephrology. Daily weights. Strict input output charting. Hypertensive urgency: Goal blood pressure less than 140/90 mmHg now. Home medications changed and uptitrated. Hydralazine 100 mg 3 times daily, Imdur 60 twice daily, Coreg 25 mg twice daily. Start patient on clonidine 0.2 mg 3 times daily. Patient would do better with a weekly patch if possible on discharge. Nfedipine ER 30 mg po daily Check renal Doppler to rule out other causes of secondary hypertension. If renal Doppler is negative follow-up for other causes of secondary hypertension. Angina equivalent: Lexiscan done on July 22 consistent with partially reversible perfusion defect in inferior and apical inferior soto with rae-infarct ischemia. Plan to treat medically for now as per cardiology. Continue aspirin, Plavix 75 mg daily. Beta-cyndy as above, nitrate uptitrated. Lipid panel results appreciated Troponin cycle trended down. Currently patient is chest pain-free.. End-stage renal disease: On maintenance hemodialysis: Tuesday, Tuesday, Tuesday. As per nephrology. Type 2 diabetes mellitus: 4.5. Stop insulin sliding scale. Change diet to renal cardiac diet. Unit. Full code. Renal cardiac dialysis diet. Heparin 5000 every 12 for DVT prophylaxis. Attestations Medical Necessity Statement*: Patient needs to be in hospital for management of hypertensive urgency. 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 transplanted heart: [place] heart Associated angina: without angina Acquired hypothyroidism E03.9 PAD (peripheral artery disease) I73.9
[2020-08-04 17:33] LABS: Glucose Point of Care 171 mg/dL (70-110)
--- NOTE | 2020-08-04 18:32 | PC.NURSE ---
Dr. Jones updated on patient VS. No new orders received. Continue medication administration as scheduled.
[2020-08-04 20:21] LABS: Glucose Point of Care 110 mg/dL (70-110)
[2020-08-04] MEDS: heparin 5,000 unit/mL INJ 1 mL 5000 UNIT SUBCUT (20:48)
[2020-08-04] MEDS: NIFEdipine ER (24 hr) 30 mg Tablet PO (20:49)
[2020-08-04] MEDS: zolpidem 5 mg Tablet 10 MG PO (21:15)
[2020-08-05] VITALS (8 sets, daily range): BP systolic 150–187; BP diastolic 62–78; PULSE 61–70; RESP 16–24; TEMP 36.7–36.8; O2SAT 90–96
[2020-08-05 04:05] LABS: Basophils # 0.1 10^3/uL (0.0-0.1); Basophils % 1.2 %; Eosinophils # 0.2 10^3/uL (0.0-0.8); Eosinophils % 2.6 %; Hematocrit 36.4 % (42.0-52.0); Hemoglobin 11.6 g/dL (11.7-16.6); Lymphocytes % 15.1 %; Mean Corpuscular HGB Conc 31.9 g/dL (30.0-36.0); Mean Corpuscular Hemoglobin 27.8 pg (28.0-34.0); Mean Corpuscular Volume 87.1 fL (80-94); Mean Platelet Volume 9.7 fL (7.4-10.4); Monocytes # 0.7 10^3/uL (0.2-0.9); Monocytes % 11.2 %; Neutrophils # 4.47 10^3/uL (1.8-7.7); Neutrophils % 69.4 %; Nucleated Red Blood Cells % 0 %; Platelet Count 218 10^3/cmm (130-400); Red Blood Count 4.18 10^6/uL (4.1-5.3); Red Cell Distribution Width 16.8 % (12.1-15.1); White Blood Count 6.4 10^3/uL (4.0-10.0)
[2020-08-05 04:27] LABS: Alanine Aminotransferase < 5 U/L (0-41); Albumin Level 3.1 g/dL (3.5-5.2); Alkaline Phosphatase 84 IU/L (40-130); Anion Gap 16.7 (5-19); Aspartate Amino Transferase 7 U/L (0-40); Blood Urea Nitrogen 18 mg/dL (6-20); Carbon Dioxide 26 mmol/L (22-29); Chloride 96 mmol/L (98-107); Globulin 2.3 g/dL (1.3-4.6); Glomerular Filtration Rate 9.7 mL/min (90-130); Glucose 123 mg/dL (65-115); Magnesium 2.1 mg/dL (1.7-2.3); Osmolality Calculated 281 mOsm/kg (285-295); Phosphorus 4.1 mg/dL (2.5-4.5); Potassium 4.7 mmol/L (3.5-5.1); Sodium 134 mmol/L (136-145); Total Bilirubin 0.3 mg/dL (0.15-1.2); Total Protein 5.4 g/dL (6.6-8.7)
[2020-08-05 04:32] LABS: Creatinine Clr Calc Pharmacy 15.3407
[2020-08-05 06:51] LABS: Glucose Point of Care 119 mg/dL (70-110)
--- NOTE | 2020-08-05 07:39 | P.PN_ITS ---
Subjective Subjective: Interval history: feels better. bp remains elevated. no headaches Medications: Reviewed: Yes Medication Review Details: Current Medications Hydrocodone Bitart/Acetaminophen (Hydrocodone-Acetaminophen 5-325 Mg Tablet) 1 tab PO Q8H PRN PRN Reason: MODERATE PAIN Albuterol Sulfate (Albuterol 2.5 Mg/0.5 Ml Neb) 2.5 mg INHALATION Q4H.RESPIRATORY PRN PRN Reason: SHORTNESS OF BREATH Alprazolam (Alprazolam 0.5 Mg Tablet) 0.25 mg PO TID PRN PRN Reason: anxiety Aspirin (Aspirin 81 Mg Ec Tablet) 81 mg PO DAILY [facility] Last Admin: 08/04/20 08:13 Dose: 81 mg Documented by: Bisacodyl (Bisacodyl 5 Mg Tablet) 10 mg PO DAILY PRN; Protocol PRN Reason: Constipation (see protocol) Carvedilol (Carvedilol 25 Mg Tablet) 25 mg PO BID [facility] Last Admin: 08/04/20 17:57 Dose: 25 mg Documented by: Clonidine HCl (Clonidine 0.1 Mg Tablet) 0.1 mg PO TID [facility] Last Admin: 08/04/20 20:48 Dose: 0.1 mg Documented by: Clopidogrel Bisulfate (Clopidogrel 75 Mg Tablet) 75 mg PO DAILY [facility] Last Admin: 08/04/20 08:13 Dose: 75 mg Documented by: Dextrose (Dextrose 50% Syringe 50 Ml) 25 ml IVP ONCE PRN; Protocol PRN Reason: hypoglycemia protocol Dextrose (Dextrose 50% Syringe 50 Ml) 50 ml IVP PRN PRN; Protocol PRN Reason: hypoglycemia protocol Furosemide (Furosemide 40 Mg Tablet) 80 mg PO BID@08,16 [facility] Last Admin: 08/04/20 16:01 Dose: 80 mg Documented by: Glucagon (Glucagon 1 Mg/Ml Inj 1 Ml) 1 mg IM ONCE PRN; Protocol PRN Reason: Adult Acute Hypoglycemia Prot. Heparin Sodium (Beef Lung) (Heparin 5,000 Unit/Ml Inj 1 Ml) 5,000 unit SUBCUT Q12H [facility] Last Admin: 08/04/20 20:48 Dose: 5,000 unit Documented by: Hydralazine HCl (Hydralazine 50 Mg Tablet) 100 mg PO TID [facility] Last Admin: 08/04/20 20:49 Dose: 100 mg Documented by: Dextrose (D5w) 500 mls @ 100 mls/hr IV ONCE PRN; Protocol PRN Reason: Adult Acute Hypoglycemia Prot Insulin Aspart (Insulin Aspart 100 Unit/1 Ml) 0 unit SUBCUT WM&BEDTIME [facility]; Protocol Last Admin: 08/05/20 07:01 Dose: Not Given Documented by: Isosorbide Mononitrate (Isosorbide Mononitrate Er 60 Mg Tablet) 60 mg PO BID [facility] Last Admin: 08/04/20 17:57 Dose: 60 mg Documented by: Lactulose (Lactulose Oral Liq 20 Gm/30 Ml Udc) 10 gm PO DAILY PRN; Protocol PRN Reason: Constipation (see protocol) Levothyroxine Sodium (Levothyroxine 150 Mcg Tablet) 150 mcg PO DAILY [facility] Last Admin: 08/04/20 08:13 Dose: 150 mcg Documented by: Morphine Sulfate (Morphine 4 Mg/Ml Sdv 1 Ml) 1 mg IVP Q4H PRN PRN Reason: SHORTNESS OF BREATH Nifedipine (Nifedipine Er (24 Hr) 30 Mg Tablet) 30 mg PO DAILY [facility] Last Admin: 08/04/20 20:49 Dose: 30 mg Documented by: Ondansetron HCl (Ondansetron 2 Mg/Ml Sdv 2 Ml) 4 mg IVP Q4H PRN PRN Reason: NAUSEA AND VOMITING Last Admin: 08/02/20 10:34 Dose: 4 mg Documented by: Pantoprazole Sodium (Pantoprazole Dr 40 Mg Tablet) 40 mg PO BID [facility] Last Admin: 08/04/20 17:57 Dose: 40 mg Documented by: Senna/Docusate Sodium (Sennosides-Docusate Tablet) 1 tab PO BID [facility] Last Admin: 08/04/20 17:57 Dose: 1 tab Documented by: Zolpidem Tartrate (Zolpidem 5 Mg Tablet) 10 mg PO BEDTIME PRN PRN Reason: Insomnia Last Admin: 08/04/20 21:15 Dose: 10 mg Documented by: Vitals/I&O/Wt Last Vital Signs Temp 98.1 F 08/05/20 04:00 Pulse 61 08/05/20 05:39 Resp 24 H 08/05/20 04:00 BP 177/75 08/05/20 04:00 Pulse Ox 93 08/05/20 04:00 08/04/20 08/05/20 08/05/20 22:59 06:59 14:59 Intake Total 120 / 600 100 / 700 Output Total 0 / 0 400 / 400 Balance 120 / 600 -300 / 300 Weight last 48 hrs Weight 89.811 kg Weight 90.1 kg Weight 98.702 kg Physical Exam Narrative: EXAM NARRATIVE: vs noted on multiple meds comfortable in bed, NARD heent- nc/at, eomi, anicteric neck - supple lungs clear heart reg, no rub abd soft, nt, nd, +BS ext no edema neuro- a,a, o x 3 dialysis access RT IJ Permacath pt seen and examined w/ RN- telehealth visit Urinary Catheter Management^: Wang: Cath Placed During This Visit: yes, but has since been removed by the nurse Reason for Continuing Indwelling Catheter: Accurate Measurement of Urinary Output in Critically Ill Patients Urinary Catheter Date of Insertion: 08/02/20 Urinary Catheter Time of Insertion: 12:01 Date Urinary Catheter Removed: 08/03/20 Time Urinary Catheter Discontinued: 12:00 Data : 08/05/20 03:40 08/05/20 03:40 A&P Assessment and plan (1) ESRD (end stage renal disease): Will plan HD in am for 3.5hrs, 2k, 2.5Ca & try to pull 2-3 lit of fluid if tolerated -normal phosphorus DM control per medicine hgb okay Status: Acute (2) HTN (hypertension): BP remains high. however, no symptoms at present- he denies CP and h/a -will attempt to lower EDW -atrophic kidneys b/l- i doubt WENDY is cause of resistant htn Angina equivalent: Lexiscan done on July 22 consistent with partially reversible perfusion defect in inferior and apical inferior soto with rae-infarct ischemia. Plan to treat medically for now as per cardiology. Continue aspirin, Plavix 75 mg daily. 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
[2020-08-05] MEDS: carvedilol 25 mg Tablet PO (08:58)
[2020-08-05] MEDS: clopidogrel 75 mg Tablet PO (08:58)
[2020-08-05] MEDS: aspirin 81 mg EC Tablet PO (08:58)
[2020-08-05] MEDS: cloNIDine 0.1 mg Tablet PO (08:59)
[2020-08-05] MEDS: pantoprazole DR 40 mg Tablet PO (08:59)
[2020-08-05] MEDS: hyDRALAzine 50 mg Tablet 100 MG PO (08:59)
[2020-08-05] MEDS: FUROsemide 40 mg Tablet 80 MG PO (09:00)
[2020-08-05] MEDS: levothyroxine 150 mcg Tablet PO (09:00)
[2020-08-05] MEDS: isosorbide mononitrate ER 60 mg Tablet PO (09:00)
[2020-08-05] MEDS: HYDROcodone-acetaminophen 5-325 mg Tablet 1 TAB PO (09:00)
[2020-08-05] MEDS: NIFEdipine ER (24 hr) 30 mg Tablet 60 MG PO (09:15)
[2020-08-05] MEDS: heparin 5,000 unit/mL INJ 1 mL 5000 UNIT SUBCUT (10:32)
--- NOTE | 2020-08-05 11:06 | PC.SOCIAL ---
MM update IMM updated with patient. He verbalized an understanding. Copy provided, copy placed in chart, dated, timed,and initialed.
--- NOTE | 2020-08-05 11:45 | P.DS_ITS ---
Discharge Providers Date of Admission: 08/02/20 08:17 Date of Discharge: August 05, 2020 Attending Provider at Admission: Kyle Grubbs MD Attending Provider at Discharge: Faustino Jones MD Primary Care Provider: ENRIQUE Ramirez Diagnoses at Discharge Discharge Diagnosis (1) ESRD (end stage renal disease): Status: Acute (2) HTN (hypertension): Status: Acute Qualifiers: Hypertension type: essential hypertension Qualified Code(s): I10 - Es sential (primary) hypertension Reason for Visit Reason for Visit: SOB Hospital Course Hospital Course 55 year old male with past medical history of ESRD on hemodialysis Tuesday, Tuesday, Tuesday, uncontrolled hypertension, history of CAD with stenting, severe peripheral arterial disease leading to critical ischemia in the past, hypothyroidism, hyperlipidemia, type 2 diabetes mellitus and diabetic neuropathy who presented to the ER with difficulty in breathing. On arrival EMS found his blood pressures to be more than 250.Blood work in the ER showed a white count 13.2, hemoglobin of 14.1, platelet count of 466, ABG showing a pH of 7.5, CO2 36,. Troponin X, sodium 135, chloride of 94, potassium of 5, creatinine of 4.7, baseline troponin of 199, delta of -10 in 2 hours, proBNP of more than 64,000. He was admitted for the management of hypertensive urgency, acute respiratory distress secondary to decompensated heart failure with preserved ejection fraction secondary to hypertensive urgency. He was placed on nicardipine drip, a number of different changes were made to the home medication, he was finally discharged on clonidine 0.1 mg 3 times daily, hydralazine 100 mg 3 times daily, nifedipine ER 30 mg p.o. daily, metoprolol succinate 100 mg p.o. twice daily.He continued to receive hemodialysis, he also was on Lasix, with better blood pressure control, dialysis, and with Lasix his respiratory distress was resolved. CT chest without contrast: Multifocal patchy bilateral pulmonary ground-glass opacities.Differential includes pneumonia and/or pulmonary edema. Blood cultures were negative, urine Legionella antigen was negative.Bacterial antigen panel was negative. Clinical suspicion for pneumonia was low he was not started on any antibiotics. Overall patient responded well to the above medical management, and was discharged in stable condition. He will continue to follow-up with supervisor type bar and segment as an outpatient, as well as his lead burner as outpatient. Physical Exam Const: COMMON NORMALS: patient oriented x3 HENMT: COMMON NORMALS: normocephalic and atraumatic HEAD & SCALP: normocephalic and atraumatic Eye: COMMON NORMALS: no scleral icterus GENERAL EYE: appearance normal, both eyes and all related structures Chest: COMMONS NORMALS: normal inspection of the chest CHEST: Yes Symmetrical chest wall rise Resp: COMMON NORMALS: clear to auscultation bilaterally EFFORT & INSPECTION: Yes symmetric chest movement AUSCULTATION: clear to auscultation bilaterally Cardio: COMMON NORMALS: regular rate, regular rhythm, S1 normal heart sound present, S2 normal heart sound present, No gallops present (Cardio), No murmurs present (Cardio), No rub (Cardio) and Peripheral pulses 2+ throughout RATE: regular rate RHYTHM: regular rhythm HEART SOUNDS: S1 normal heart sound present and S2 normal heart sound present PERIPHERAL PULSES: Peripheral pulses 2+ throughout GI: COMMON NORMALS: Normal to inspection, nondistended, normoactive bowel sounds present, Soft to palpation, non-tender, No hepatosplenomegaly present and no masses AUSCULTATION: Yes normoactive bowel sounds PALPATION: Yes Soft to palpation and Yes No hepatosplenomegaly present RECTAL EXAM: Yes deferred Extremity: COMMON NORMALS: no clubbing, cyanosis or edema and no pedal edema Neuro: COMMON NORMALS: patient oriented x3 Urinary Catheter Management^: Wang: Cath Placed During This Visit: yes, but has since been removed by the nurse Reason for Continuing Indwelling Catheter: Accurate Measurement of Urinary Output in Critically Ill Patients Urinary Catheter Date of Insertion: 08/02/20 Urinary Catheter Time of Insertion: 12:01 Date Urinary Catheter Removed: 08/03/20 Time Urinary Catheter Discontinued: 12:00 Discharge Data Data Completed and Pending: Completed Studies During Hospitalization Category Date Time Status CT chest wo con 7 1250 Urgent Cat Scan 08/02/20 09:13 Completed XR chest 1V hernandez ble [id number] Stat Exams 08/02/20 06:46 Completed US renal BI* [id number] Routine Ultrasound 08/03/20 07:00 Completed Pending at discharge Category Date Time Status Blood Culture Sta t Lab 08/02/20 20:45 Results Complete Blood Co unt w/Auto AM LABS Lab 08/06/20 04:00 Ordered Complete Blood Co unt w/Auto AM LABS Lab 08/07/20 04:00 Ordered Comprehensive Met abolic Panel AM LA BS Lab 08/06/20 04:00 Ordered Comprehensive Met abolic Panel AM LA BS Lab 08/07/20 04:00 Ordered Magnesium AM LABS Lab 08/06/20 04:00 Ordered Magnesium AM LABS Lab 08/07/20 04:00 Ordered Phosphorus AM LAB S Lab 08/06/20 04:00 Ordered Phosphorus AM LAB S Lab 08/07/20 04:00 Ordered Sputum Culture an d Gram Stain Stat Lab 08/02/20 15:06 Uncollected Labs from last 24 hours 08/05/20 08/05/20 08/05/20 06:42 03:40 03:40 WBC 6.4 RBC 4.18 Hgb 11.6 L Hct 36.4 L MCV 87.1 MCH 27.8 L MCHC 31.9 RDW 16.8 H Plt Count 218 MPV 9.7 Neut % (Auto) 69.4 Lymph % (Auto) 15.1 Caswell % (Auto) 11.2 Eos % (Auto) 2.6 Baso % (Auto) 1.2 Neut # (Auto) 4.47 Lymph # (Auto) 1.0 Caswell # (Auto) 0.7 Eos # (Auto) 0.2 Baso # (Auto) 0.1 Nucleated RBC % (a uto) 0 Nucleated RBCs # 0.0 Sodium 134 L Potassium 4.7 Chloride 96 L Carbon Dioxide 26 Anion Gap 16.7 BUN 18 Creatinine 6.1 H* GFR Calculation 9.7 L Glucose 123 H POC Glucose 119 H Calculated Osmolal ity 281 L Calcium 8.0 L Phosphorus 4.1 Magnesium 2.1 Total Bilirubin 0.3 AST 7 ALT < 5 Alkaline Phosphata se 84 Total Protein 5.4 L Albumin 3.1 L Globulin 2.3 08/04/20 08/04/20 20:07 17:30 WBC RBC Hgb Hct MCV MCH MCHC RDW Plt Count MPV Neut % (Auto) Lymph % (Auto) Caswell % (Auto) Eos % (Auto) Baso % (Auto) Neut # (Auto) Lymph # (Auto) Caswell # (Auto) Eos # (Auto) Baso # (Auto) Nucleated RBC % (a uto) Nucleated RBCs # Sodium Potassium Chloride Carbon Dioxide Anion Gap BUN Creatinine GFR Calculation Glucose POC Glucose 110 171 H Calculated Osmolal ity Calcium Phosphorus Magnesium Total Bilirubin AST ALT Alkaline Phosphata se Total Protein Albumin Globulin Vitals: Last Vital Signs Temp 98.2 F 08/05/20 07:39 Pulse 70 08/05/20 11:43 Resp 22 H 08/05/20 11:43 BP 153/65 08/05/20 11:43 Pulse Ox 90 08/05/20 09:05 Discharge Plan Discharge Patient Disposition: Home Condition: Stable Prescriptions: New clonidine HCl 0.1 mg Tablet 0.1 mg PO TID 30 Days Qty: 90 RF: 3 Continued metoprolol succinate 100 mg tablet extended release 24 hr 100 mg PO BID RF: 0 hydrocodone-acetaminophen 10-325 mg tablet 1 tab PO Q4H PRN (Reason: Pain) RF: 0 levothyroxine 112 mcg tablet 112 mcg PO DAILY 30 Days Qty: 30 RF: 2 (DME) Diabetic shoes with inserts and toe filler See Rx Instructions .Route .MEDSUPPLY Qty: 1 RF: 0 zolpidem 10 mg tablet 10 mg PO BEDTIME PRN (Reason: Insomnia) RF: 0 sennosides-docusate sodium 8.6-50 mg Tablet 1 tab PO BID Qty: 60 RF: 0 (DME) glucometer See Rx Instructions .Route .MEDSUPPLY Qty: 1 RF: 0 (DME) glucometer strips See Rx Instructions .Route .MEDSUPPLY Qty: 100 RF: 0 isosorbide mononitrate 60 mg Tablet Extended Release 24 Hr 60 mg PO DAILY 30 Days Qty: 30 RF: 2 aspirin 81 mg tablet,delayed release (DR/EC) 81 mg PO DAILY Qty: 30 RF: 0 Changed nifedipine 30 mg Tablet Extended Release 60 mg PO DAILY 30 Days Qty: 30 RF: 0 hydralazine 100 mg tablet 100 mg PO TID 30 Days Qty: 60 RF: 2 Discharge Orders: Discharge Order (Routine); Ordered 08/05/20 Ordered By: Faustino Jones Referrals: Ruel Reyes, DEVICE TEST ENGINEER-C [Nurse Practitioner] - (Please follow-up with Ruel Reyes on Tuesday, August 11 at 3:30P.M. If you have any questions or need to reschedule. Please call ) Discharge Diet: Low Salt Discharge Activity: Resume usual activity Patient Instructions: Clonidine (By mouth), Coronary Artery Disease (DC), Diabetes Mellitus Type 2 in Adults (DC), Peripheral Artery Disease (DC) Discharge Attestations Time Spent in Discharge Care*: less than 30 min Specific Discharge Activities: educating patient, educating and/or supporting family/caregiver, discussing with pcp/other providers, discussing with protective services case worker/social workers/dc planners, documenting/other paperwork and evaluating patient/reviewing data Status at Discharge: Cognitive status at discharge: cognitively intact , Behavioral status at discharge: cooperative , Functional status at discharge: independent ambulation Overall status at discharge: patient is back to baseline Quality Metrics Clinical Quality Measures During this hospital stay, did patient experience: None Coding Level of Care Code Acute Chg FW DC note Diagnoses ESRD (end stage renal disease) N18.6 HTN (hypertension) I10 Hypertension type: essential hypertension
[2020-08-05 12:01] LABS: Glucose Point of Care 136 mg/dL (70-110)
--- NOTE | 2020-08-05 14:10 | PC.NURSE ---
Discharge instructions given per physician's orders. Pt verbalized understanding of teaching and did not have any further questions. IVs have been remove and pt dressed himself. Pt wheeled out of facility by nurse and left POV with son.
== END 2020-08-05 14:10 | disposition home or self-care (01) | DRG 304 ==
LOC: ER 07:57 → ICU 08:23 → CSU 08-03 15:06
PROVIDERS: Internal Medicine Nephrology; Admitting Provider Student in an Organized Health Care Education/Training Program; Emergency Provider Emergency Medicine; PCP Nurse Practitioner Family; Visit Provider Internal Medicine
DX: I16.0 Hypertensive urgency (principal); I50.33 Acute on chronic diastolic (congestive) heart failure; N18.6 End stage renal disease; I16.1 Hypertensive emergency; E11.22 Type 2 diabetes mellitus with diabetic chronic kidney disease; I13.2 Hypertensive heart and chronic kidney disease with heart failure and with stage 5 chronic kidney disease, or end stage renal disease; Z99.2 Dependence on renal dialysis; I25.10 Atherosclerotic heart disease of native coronary artery without angina pectoris; Z95.5 Presence of coronary angioplasty implant and graft; E11.51 Type 2 diabetes mellitus with diabetic peripheral angiopathy without gangrene; E11.40 Type 2 diabetes mellitus with diabetic neuropathy, unspecified; Z95.820 Peripheral vascular angioplasty status with implants and grafts; E21.3 Hyperparathyroidism, unspecified; E78.5 Hyperlipidemia, unspecified; F41.8 Other specified anxiety disorders; N52.1 Erectile dysfunction due to diseases classified elsewhere; M51.24 Other intervertebral disc displacement, thoracic region; Z89.412 Acquired absence of left great toe; Z89.422 Acquired absence of other left toe(s); Z79.891 Long term (current) use of opiate analgesic; Z79.82 Long term (current) use of aspirin; Z79.84 Long term (current) use of oral hypoglycemic drugs
CPT/HCPCS: 36415; 36416; 36600; 51702; 71045; 71250; 76770; 80048; 80051; 80053; 80061; 82330; 82805; 82962; 83036; 83540; 83550; 83735; 83880; 84100; 84145; 84439; 84443; 84481; 84484; 85025; 85610; 86403; 87040; 87449; 87641; 93005; 94660; 94664; 96372; 96374; 96375; 96376; 99291; 99292; J0360; J1644; J1815; J1940; J2060; J2270; J2405; J3490; Q3014

== ENCOUNTER → 2020-09-22 14:32 | Outpatient (BNVA) | payer MEDICARE, MEDICAID, SELFPAY | PROVIDERS: PCP Nurse Practitioner Family; Visit Provider Nurse Practitioner Family | DX: G47.00 Insomnia, unspecified (principal); E03.9 Hypothyroidism, unspecified | CPT/HCPCS: 84443 ==

== ENCOUNTER → 2021-03-05 13:56 | Outpatient (BNVA) | payer MEDICARE, MEDICAID, SELFPAY | PROVIDERS: PCP Nurse Practitioner Family; Visit Provider Nurse Practitioner Family | DX: E11.52 Type 2 diabetes mellitus with diabetic peripheral angiopathy with gangrene (principal); E03.9 Hypothyroidism, unspecified; Z89.432 Acquired absence of left foot | CPT/HCPCS: 80061; 83036; 84443 ==

== ENCOUNTER → 2021-05-19 11:27 | Outpatient (BNVA) | payer MEDICARE, MEDICAID, SELFPAY | PROVIDERS: PCP Nurse Practitioner Family; Visit Provider Nurse Practitioner Family | DX: L97.519 Non-pressure chronic ulcer of other part of right foot with unspecified severity (principal) | CPT/HCPCS: 73630 ==

== ENCOUNTER → 2021-06-03 13:32 | Outpatient (BNVA) | payer MEDICARE, MEDICAID, SELFPAY | PROVIDERS: PCP Nurse Practitioner Family; Visit Provider Nurse Practitioner Family | DX: E11.621 Type 2 diabetes mellitus with foot ulcer; L97.512 Non-pressure chronic ulcer of other part of right foot with fat layer exposed | CPT/HCPCS: 11044; 99212 ==

== ENCOUNTER 2021-06-10 14:29 | Outpatient (CLI) | payer MEDICARE, MEDICAID, SELFPAY ==
--- NOTE | 2021-06-10 14:43 | USCV_ITS ---
Christiano Kearns Age: 56 Gender: M : 1965 Exam Date: 06/10/2021 15:19 Ordering Phys: Michelle Diggs DO Technologist: Endy Sosa [place] [facility] [place] Indication: TYPE 2 DM W/ FOOT ULCER Risk Factors: Previous Vascular Surgery: Noneu RIGHT LEFT BP: 110.0 / 66.00 BP: 140.0/ 83.00 0 0 Waveform Velocity (cm/s) Velocity (cm/s) Waveform Triphasic 43.6 Iliac Prox Triphasic 42.8 Iliac Mid Triphasic Iliac Distal 66.8 Biphasic 46.6 HIDE TANNER Monophasic 32.6 SFA Prox Monophasic 24.1 SFA Mid Monophasic 41.6 SFA Dist Monophasic 48.7 POP Monophasic 23.1 DPA FINDINGS Unable to demonstrate flow within the RT POTTERY DECORATOR. RT DPA is non compressible. Monophasic and continuous waveform in the dorsalis pedis artery CONCLUSIONS Possible occlusion of the posterior artery on the right side Noncompressible dorsalis pedis artery on the right side, suggestive of arterial sclerosis Abnormal Doppler waveforms in the dorsalis pedis artery, may suggest collateral filling. Consider peripheral angiogram to better evaluate the arteries, if clinically indicated Dr Jessica Torrez MD FACC (Electronically Signed) Final Date: 14 Jun 2021 21:34 S
== END 2021-06-10 14:30 | disposition home or self-care (01) ==
LOC: RAD 14:31
PROVIDERS: PCP Nurse Practitioner Family; Visit Provider Emergency Medicine
DX: E11.621 Type 2 diabetes mellitus with foot ulcer (principal); I70.213 Atherosclerosis of native arteries of extremities with intermittent claudication, bilateral legs; L97.511 Non-pressure chronic ulcer of other part of right foot limited to breakdown of skin
CPT/HCPCS: 93926; 99213

== ENCOUNTER 2021-06-15 14:40 | Outpatient (CLI) | payer MEDICARE, MEDICAID, SELFPAY | END 2021-06-15 14:41 | disposition home or self-care (01) | LOC: LAB 14:59 | PROVIDERS: PCP Nurse Practitioner Family; Visit Provider Nurse Anesthetist, Certified Registered | DX: R18.8 Other ascites (principal) | CPT/HCPCS: 87070; 87075; 87077; 87186; 87205 ==

== ENCOUNTER → 2021-06-17 15:04 | Outpatient (BNVA) | payer MEDICARE, MEDICAID, SELFPAY | PROVIDERS: PCP Nurse Practitioner Family; Visit Provider Thoracic Surgery (Cardiothoracic Vascular Surgery) | DX: E11.621 Type 2 diabetes mellitus with foot ulcer (principal); L97.511 Non-pressure chronic ulcer of other part of right foot limited to breakdown of skin; I96 Gangrene, not elsewhere classified | CPT/HCPCS: 99212 ==

== ENCOUNTER → 2021-06-24 08:05 | Outpatient (BNVA) | payer MEDICARE, MEDICAID, SELFPAY | PROVIDERS: PCP Nurse Practitioner Family; Visit Provider Thoracic Surgery (Cardiothoracic Vascular Surgery) | DX: E11.621 Type 2 diabetes mellitus with foot ulcer (principal); L97.511 Non-pressure chronic ulcer of other part of right foot limited to breakdown of skin; I96 Gangrene, not elsewhere classified | CPT/HCPCS: 11042 ==

== ENCOUNTER → 2021-07-01 08:42 | Outpatient (BNVA) | payer MEDICARE, MEDICAID, SELFPAY | PROVIDERS: PCP Nurse Practitioner Family; Visit Provider Thoracic Surgery (Cardiothoracic Vascular Surgery) | DX: E11.621 Type 2 diabetes mellitus with foot ulcer (principal); L97.812 Non-pressure chronic ulcer of other part of right lower leg with fat layer exposed; I96 Gangrene, not elsewhere classified | CPT/HCPCS: 11042 ==

== ENCOUNTER 2021-07-07 08:06 | Outpatient (CLI) | payer MEDICARE, MEDICAID, SELFPAY ==
--- NOTE | 2021-07-07 08:00 | CT_ITS ---
WS: [id number] CTA ABDOMINAL AORTA WITH RUNOFF TECHNIQUE: Contrast enhanced CTA of the abdominal aorta with bilateral lower extremity runoff. Multip lanar reformatted images were obtained. MIP reformats were also reviewed. CLINICAL INFORMATION: peripheral vascular disease, non-healing ulcer to R 2nd toe COMPARISON: Multiple prior CTs dating back to 08/20/2019 and 07/24/2019, and . DLP: 937.[address] scans at [facility] use at least one of these dose optimization techniques: automated e xposure control; mA and/or kV adjustment per patient size (includes targeted exams where dose is matc hed to clinical indication); or iterative reconstruction. FINDINGS: Normal caliber abdominal aorta. No aneurysm. Celiac is patent. Moderate stenosis SMA. Dense ly calcified mesenteric arteries. Densely calcified AURORA. Renal arteries are patent. Atrophic kidneys bilaterally. Heterogeneously enhancing RIGHT renal lesion measuring 2.8 x 3.0 CM. Lung bases are well aerated. Diffuse fatty infiltration of the liver. Perihepatic and perisplenic ascites. Normal GE shila ction. Fatty atrophy of the pancreas. Splenic artery calcification. Adrenal glands are normal. No hyd ronephrosis in RIGHT kidney. No periaortic lymphadenopathy. Small amount of ascites in the pelvis. Fa t-containing umbilical hernia. Heterogeneous perfusion in the spleen. RIGHT: Common iliac artery is patent. Densely calcified internal iliac artery. External iliac artery is patent. Common femoral artery is patent. Deep femoral artery is heavily calcified. Heavily calcifi ed RIGHT superficial femoral artery and deep femoral artery. Superficial femoral artery is patent to the popliteal hiatus. Popliteal artery is occluded at the origin. Moderate to severe segmental narrow ing involving the heavily calcified popliteal artery with segmental patency. Popliteal artery is occl uded above the knee with a tiny amount of flow below the knee. Heavily calcified tibioperoneal trunk and calf arteries with very poor runoff distally. LEFT: LEFT common iliac artery is patent. Internal and external iliac arteries are patent. Common fem oral artery is patent. Heavily calcified superficial femoral artery and deep femoral arteries. Superf icial femoral artery is patent to the popliteal hiatus. Severe stenosis of the popliteal artery origi n. Severe stenosis in the popliteal artery [id number] in the popliteal fossa. Popliteal artery is occluded just above the knee. No significant flow in the popliteal artery distally or tibioperoneal trunk. Densely calcified calf arteries with poor runoff. Posterior tibial artery is essentially absen t. CT/CT angio abd aorta runof [id number] IMPRESSION: 1. Multifocal stenosis and occlusion involving the RIGHT popliteal artery abov e-the-knee with heavily calcified tibioperoneal trunk and calf arteries. Very p oor runoff in the distal RIGHT lower extremity with heavily calcified calf barry eugene. Similar appearance to the LEFT lower extremity. 2. Normal caliber abdominal aorta. No aneurysm. 3. Celiac is patent. Moderate stenosis of the SMA origin. Proximal renal arter ies are patent. Densely calcified AURORA. 4. Heterogeneous enhancing 2.8 x 3.0 cm RIGHT renal lesion most compatible wit h renal cell carcinoma stable since August 20, 2019. Recommend urology consultati on if not previously performed. 5. Wedge-shaped low-attenuation in the anterior spleen likely due to prior spl enic infarct unchanged since August 20, 2019. 6. Perihepatic and perisplenic ascites. Mild pelvic ascites.
[2021-07-07] MEDS: iodixanol 320 mg/mL 100mL Btl IV (08:37)
== END 2021-07-07 08:07 | disposition home or self-care (01) ==
LOC: RAD 08:10
PROVIDERS: PCP Nurse Practitioner Family; Visit Provider Thoracic Surgery (Cardiothoracic Vascular Surgery)
DX: I73.9 Peripheral vascular disease, unspecified (principal); L97.519 Non-pressure chronic ulcer of other part of right foot with unspecified severity; R18.8 Other ascites; I70.201 Unspecified atherosclerosis of native arteries of extremities, right leg
CPT/HCPCS: 75635

== ENCOUNTER → 2021-07-08 08:07 | Outpatient (BNVA) | payer MEDICARE, MEDICAID, SELFPAY | PROVIDERS: PCP Nurse Practitioner Family; Visit Provider Thoracic Surgery (Cardiothoracic Vascular Surgery) | DX: E11.621 Type 2 diabetes mellitus with foot ulcer (principal); L97.512 Non-pressure chronic ulcer of other part of right foot with fat layer exposed; I96 Gangrene, not elsewhere classified | CPT/HCPCS: 97597 ==

== ENCOUNTER → 2021-07-15 08:08 | Day surgery (SDC) | payer MEDICARE, MEDICAID, SELFPAY | PROVIDERS: PCP Nurse Practitioner Family; Visit Provider Thoracic Surgery (Cardiothoracic Vascular Surgery) | DX: I73.9 Peripheral vascular disease, unspecified (principal); E11.621 Type 2 diabetes mellitus with foot ulcer; L97.512 Non-pressure chronic ulcer of other part of right foot with fat layer exposed | CPT/HCPCS: 99213; J1644; J2250; J3010; J7030 ==

== ENCOUNTER → 2021-07-22 08:09 | Outpatient (BNVA) | payer MEDICARE, MEDICAID, SELFPAY | PROVIDERS: PCP Nurse Practitioner Family; Visit Provider Nurse Practitioner Family | DX: E11.621 Type 2 diabetes mellitus with foot ulcer (principal); L97.512 Non-pressure chronic ulcer of other part of right foot with fat layer exposed; I96 Gangrene, not elsewhere classified | CPT/HCPCS: 99213 ==

== ENCOUNTER 2021-07-23 06:10 | Outpatient (CLI) | payer MEDICARE, MEDICAID, SELFPAY ==
[2021-07-23] VITALS (51 sets, daily range): BP systolic 97–157; BP diastolic 58–102; PULSE 91–115; RESP 0–20; TEMP 36.9; O2SAT 89–100; BMI 30.2
--- NOTE | 2021-07-23 06:00 | XACV_ITS ---
Ht: 175 cm Wt: 93 kg BSA: 2.15 m2 Any Known Allergies: Other Gender: Male : 1965 Exam Type: Invasive Peripheral Vascular Procedure(s): Procedure Description: Peripheral Cath Diagnostic Procedure Procedure Description: Lower extremities' angiography Exam Priority: Routine Lower Extremity Diagnostic Findings The right common iliac is normal. The external iliac is normal. The internal iliac contains mild diffuse disease but is otherwise normal. Common femoral is normal. The profunda femoris is a small vessel and has severe diffuse disease. It provides a tiny amount of collaterals distally. The superficial femoral artery has multiple stents with multiple areas of mild to modest disease. It is occluded distally in the adductor canal. There is a short segment, heavily calcified occlusion. There is minor reconstitution distally. The vessel is heavily calcified. The popliteal can be seen patent all the way to the knee and just below the knee. At the level of the takeoff of the anterior tibial trifurcation vessels are occluded. Lower Extremity Interventional Findings Intervention was planned on the distal superficial femoral artery. Extreme difficulty was encountered getting a wire to go around the aortic bifurcation, given the catheter's tendency to slip upward into the aorta. I had to exchange catheters on 4 or 5 occasions and then use a coronary wire to get down the superficial femoral artery. I was then able to get a crossover sheath around. I was able to get a coronary wire across the lesion distally but despite multiple attempts with a seeker catheter and 2 or 3 other hydrophilic catheters I was never able to get any catheter across the lesion. Ultimately the sheath slipped up into the aorta and we lost wire position. It was at that point we decided to abandon the procedure. I will speak to him about sending him to [place] and making an attempt at an antegrade stick on the right side. Conclusions Occluded distal superficial femoral artery on the right. Intervention attempt failed. Recommendations Medical therapy versus referral for antegrade stick on the right. Anticoagulation: Heparin Hemodynamic Data Phase:Rest AO : 137.0 / 43.0 ( 76.0 ) @ 8:25:00 AM 181.0 / 81.0 ( 110.0 ) @ 9:26:00 AM 163.0 / 163.0 ( 115.0 ) @ 9:42:00 AM Access Site Site: Left Femoral artery Sheath Size: 6 Fr Hemost... Method: Suture Hemost... Success: Successful Procedure Details Findings Procedure Consent Obtained. Pre-Procedure Time Out. Identified patient by full name and date of as verbalized by the patient/guarantor. Does the consent match the physician's order: Yes. Accurate & Complete Informed Consent: Yes. Inpatient/Outpatient History & Physical on Chart: Yes. If H&P is completed, is and addenduem needed: Yes; If yes, is the addendum complete: Yes. Visualize and Verify Site with Patient/Guarantor: N/A. Relevant Radiology Images available: Yes. Pre-op teaching completed and patient verbalized understanding. The risks, benefits, and alternatives of sedation and/or procedure were discussed by physician. The patient agrees to continue. Procedure started. Physician arrived. Correct patient, site and procedure confirmed by cath team. PERRLA. 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 Lungs clear x 5 lobes. IV Site on Arrival: 20 gauge in the right anticubital. IV Fluids: 0.9% NaCl at KVO. 0 mL infused prior to mineral ore processing labourer. Pre Procedural Pulses: right dorsalis pedis was Doppled. Pre Procedural Pulses: right posterior tibial was Absent. Oxygen started at 2liters/min via nasal canula. bilateral groins was prepped with chloroprep then draped in the usual sterile fashion. Baseline sample Acquired. HR: 101 BPM. Physician scrubbed in. Immediate Pre-Procedure Time Out. Correct Patient: Yes; Correct Procedure: Yes; Correct Site: Yes; Correct Patient Position: Yes; Correct Supplies: Yes; Dried Flammable Prep: Yes; Blood Products Available: No;. Lidocaine 1% infiltrated to the left groin. Critical labs called Potassium 2.8 Creatinine 11.5. Arterial access obtained. A 5FrFr RIM catheter in over wire. glidewire inserted. wire and catheter out. A 5Fr IM catheter in over wire. wire and catheter out. 6 chadian IM guide catheter was inserted over the glidewire. guide catheter out. 6 chadian AL 0.75 guide catheter was inserted over the wire. guide catheter out. A 5FrFr UF catheter in over wire. Catheter out. A 6Fr SIM catheter in over wire. wire and catheter out. A 5FrFr UF catheter in over the Advantage glidewire. wire out. 0.025 wire inserted. Catheter out. A 4FrFr Straight glidecath catheter in over wire. wire out. Advantage glidewire inserted through the catheter. wire out. glidewire inserted. catheter out OTW. seeker inserted over the glidewire. catheter out OTW. Sheath upsized to a 6 Fr. seeker inserted over the glidewire. wire out. contrast hand injected through the catheter. Fielder wire inserted through the catheter. wire out. glidewire inserted. wire out. Advantage glidewire inserted through the catheter. catheter out. Teleport catheter inserted OTW. Wire out. Runthrough wire inserted through the catheter. wire and catheter out. The long 6Fr sheath exchanged for a short 6Fr sheath. A Suture was successful obtaining hemostatsis at the Left Femoral artery insertion site. Sheath(s) sutured into position with 2-0 silk and sterile 4x4's and Op-site applied over the site. No oozing or signs and symptoms of hematoma noted. Arterial sheath flushed and connected to tranducer and pressure bag with heparinized saline. Post Procedure: Pulses reassessed and unchanged. PERRLA. 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 No VTE prophylaxis required. Medication's Wasted: Lidocaine 1% = 1 mL. Medication's Wasted: Other = Versed 1 mg. Complications: None. Estimated blood loss: 5mL-10mL. Responsiveness - Normal response to verbal stimuli; alert and oriented, PERRLA. Airway - Unaffected, no intervention required; spontaneous ventilation. Circulation: W/N/L, pulses unchanged. Nausea/Vomiting: No. Procedure completed. Patient transferred by stretcher to CPRU. Vital chart was stopped. Procedure Medications Start: 7:11 AM Stop: 7:11 AM Medication: Versed Amount: 1 mg Route: I.V. Start: 7:11 AM Stop: 7:11 AM Medication: Fentanyl Amount: 50 mcg Route: I.V. Start: 7:18 AM Stop: 7:18 AM Medication: Versed Amount: 1 mg Route: I.V. Start: 8:20 AM Stop: 8:20 AM Medication: Versed Amount: 1 mg Route: I.V. Start: 8:24 AM Stop: 8:24 AM Medication: Fentanyl Amount: 25 mcg Route: I.V. Start: 8:42 AM Stop: 8:42 AM Medication: Heparin Amount: 5000 units Route: I.V. Start: 8:46 AM Stop: 8:46 AM Medication: Fentanyl Amount: 25 mcg Route: I.V. I, the attending physician, have reviewed and verified all procedure medications. Yes, all medications given per verbal order History/Risk Factors Hypertension: Yes Dyslipidemia: Yes Peripheral Arterial Disease (PAD): No Obesity: No Renal Disease: No Prior Interventions PCI: No CABG: No Valve Surgery: No Report Signatures Finalized by Dr. Mahesh Bridges MD on 07/23/2021 09:45 AM
[2021-07-23] MEDS: diphenhydrAMINE 50 mg Capsule PO (06:30)
[2021-07-23 06:47] LABS: Basophils # 0.3 10^3/uL (0.0-0.1); Basophils % 1.4 %; Eosinophils # 0.7 10^3/uL (0.0-0.8); Eosinophils % 3.5 %; Hematocrit 36.6 % (42.0-52.0); Hemoglobin 11.8 g/dL (11.7-16.6); Lymphocytes # 2.2 10^3/uL (0.8-4.8); Lymphocytes % 11.5 %; Mean Corpuscular HGB Conc 32.2 g/dL (30.0-36.0); Mean Corpuscular Volume 86.9 fl (80-94); Mean Platelet Volume 9.5 fL (7.4-10.4); Monocytes # 1.7 10^3/uL (0.2-0.9); Neutrophils # 13.96 10^3/uL (1.8-7.7); Neutrophils % 73.8 %; Nucleated Red Blood Cells % 0 %; Platelet Count 403 10^3/cmm (130-400); Red Blood Count 4.21 10^6/uL (4.1-5.3); Red Cell Distribution Width 14.2 % (12.1-15.1); White Blood Count 18.9 10^3/uL (4.0-10.0)
--- NOTE | 2021-07-23 07:02 | P.HP_ITS ---
Providers/Chief Complaint Admitting Physician: gale Primary Care Provider: ENRIQUE Ramirez Chief Complaint: [id number] i73.9 History of Present Illness Christiano Kearns is a 56 year old male who is being admitted electively for purposes of lower extremity angiography. He has critical limb ischemia of the right lower extremity with gangrenous toes. His aortogram with runoff revealed an occluded popliteal artery on both sides. He has had a forefoot amputation on the left and he has several toes which are gangrenous on the right. He has a longstanding history of diabetes, end-stage renal disease on CAPD, hyperparathyroidism, hypothyroidism, hypertension and coronary artery disease. Dr. Leonardo asked me to make an attempt to intervene on the right lower extremity. Review of Systems Narrative: His review of systems is negative aside from what is noted in the history of present illness. Medications/Allergies Home Medications Medication Instructions Recorded Confirmed Last Taken Type hydrocodone 10 mg-acetaminophen 1 tab PO Q4H PRN tab 03/01/19 07/22/21 07/21/20 12:00 History 325 mg tablet glucometer #1 ea 07/28/19 06/11/21 Unknown Rx glucometer strips #100 each 07/28/19 06/11/21 Unknown Rx sennosides 8.6 mg-docusate sodium 1 tab PO BID #60 tab 07/28/19 07/22/21 07/15/20 09:00 Rx 50 mg tablet Diabetic shoes with inserts and #1 ea 12/12/19 06/11/21 Unknown Rx toe filler aspirin 81 mg tablet,delayed 81 mg PO DAILY #30 tab 07/23/20 07/22/21 Unknown Rx release nifedipine 30 mg tablet,extended 60 mg PO DAILY 30 Days #30 tab 08/05/20 07/22/21 Unknown Rx release diabetic shoes and inserts #1 ea 11/05/20 06/11/21 Unknown Rx honey 100 % topical paste 1 applic TOPICAL TID #103 ml 03/05/21 07/22/21 Unknown Rx (MediHoney (honey)) pen needle, diabetic 31 gauge x #100 ea 03/05/21 06/11/21 Unknown Rx 04/29 (Comfort EZ Pen Stringer) atorvastatin 20 mg tablet 20 mg PO DAILY #30 tab 04/01/21 07/22/21 Unknown Rx hydroxyzine HCl 50 mg tablet 50 mg PO BID PRN #60 tab 05/12/21 07/22/21 Unknown Rx Diabetic shoes with inserts #1 ea 05/22/21 06/11/21 Unknown Rx zolpidem 10 mg tablet 10 mg PO .qhs #30 tab 05/22/21 07/22/21 Unknown Rx levothyroxine 125 mcg tablet See Rx Instructions .ROUTE 06/02/21 07/22/21 Unknown Rx .COMPLEX #30 tab insulin detemir U-100 100 unit/mL 20 unit (0.2 mL) SUBCUT DAILY #15 06/11/21 07/22/21 Unknown Rx (3 mL) subcutaneous pen ml clindamycin HCl 300 mg capsule 300 mg PO TID #21 cap 07/15/21 07/22/21 Unknown Rx Allergies Allergy/AdvReac Type Severity Reaction Status Date / Time nitrofurantoin Allergy unknown Verified 06/11/21 10:19 clavulanic acid AdvReac Severe Nausea Verified 06/11/21 10:19 [From Augmentin] amoxicillin [From Augmentin] AdvReac Intermediate Nausea Verified 06/11/21 10:19 PFSH Acute PFSH: Medical History (Updated 07/23/21 @ 07:06 by Mahesh Bridges MD) Acquired hypothyroidism Acquired spondylolisthesis Acute respiratory distress Anginal equivalent Anxiety and depression CAD (coronary artery disease) Cardiac stent x1 Chronic hypertension Diabetes mellitus, type II HbA1c 4.5 in August 03, 2020 Dyslipidemia End stage renal failure on dialysis Peritoneal dialysis normally, on HD since 08/2019 when peritoneal dialysis catheter removed, due to have replaced in [place] 07/24/20 Environmental and seasonal allergies Erectile dysfunction due to diseases classified elsewhere ESRD (end stage renal disease) HPTH (hyperparathyroidism) HTN (hypertension) Hypertensive emergency Malignant hypertension PAD (peripheral artery disease) With critical lower limb ischemia 06/2019 requiring intervention with CSI atherectomy of the SFA followed by [id number] balloon angioplasty, CSI atherectomy of the tibial peroneal trunk and left anterior tibial followed by balloon angioplasty, reconstruction of the arch of the foot which was completely occluded. Peripheral vascular disease Polyneuropathy Protrusion of thoracic intervertebral disc Pulmonary edema Syrinx of spinal cord Vitamin D deficiency Surgical History Amputated toe of left foot due to gangrene 06/27/2019, with subsequent removal of all toes left foot 08/2019 at [place], [place] History of heart artery stent History of repair of right rotator cuff History of toe surgery Left great toe debridement Peritoneal dialysis catheter in place removed 08/2019, due to be replaced 07/24/2020 Family History Brother Cancer Mother Cancer Father Heart disease Social History Smoking and tobacco status: never smoked Second hand smoke exposure: No Alcohol intake: never Caregiver/support person: No Lives independently: Yes Housing: House Marital status: Legally Highest education level completed: Some College, No Degree service: No Current occupational status: disabled Pets and animals: Yes History of recent travel: No Current gender identity: Male Physical Exam Narrative: GENERAL: In general he is comfortable at rest. HEENT: Exam within normal limits. NECK: Supple without jugular vein distention. The carotid upstroke is normal without bruits. BACK: Exam normal. LUNGS: Clear. HEART: Regular rate and rhythm. ABDOMEN: Benign without organomegaly or tenderness. EXTREMITIES: No edema. There is a left forefoot amputation which is well- healed. Several of the toes have wet gangrene on the right. There are multiple lesions and excoriations on the toes. There are no pulses in either foot. NEUROLOGIC: Exam normal. SKIN: Unremarkable. Data : 07/23/21 06:36 07/23/21 06:36 A&P Assessment and plan (1) Amputation of one or more toes: Status: Acute (2) Chronic hypertension: Status: Acute (3) Diabetes mellitus, type II: Status: Acute Qualifiers: Diabetes mellitus halfway insulin use: without halfway use Diabetes mellitus complication status: with circulatory complication Diabetes mellitus complication detail: with peripheral angiopathy with gangrene Qualified Code(s): E11.52 - Type 2 diabetes mellitus with diabetic peripheral angiopathy with gangrene (4) Diabetic feet: Status: Acute (5) S/P hemodialysis catheter insertion: Status: Resolved (6) Erectile dysfunction due to diseases classified elsewhere: Status: Chronic (7) PAD (peripheral artery disease): Status: Acute (8) Dyslipidemia: Status: Acute (9) End stage renal failure on dialysis: Status: Acute (10) CAD (coronary artery disease): Status: Acute Qualifiers: Coronary Disease-Associated Artery/Lesion type: [place] artery [place] vs. transplanted heart: [place] heart Associated angina: without angina Qualified Code(s): I25.10 - Atherosclerotic heart disease of [place] coronary artery without angina pectoris Plan We will proceed with angiography of the right lower extremity via entry in the left common femoral artery. Further recommendations depending upon the results of the examination. I have explained to him in detail the procedure. Have also told him that with the presence of diabetes and end-stage renal disease the amount of calcification that is there may not allow us to get through the chronic popliteal occlusion. Attestations Medical Necessity Statement*: I expect him to go home either later today or at the latest tomorrow. Coding Level of Care Code Acute Switchboard Installer for Milind Fwd History Comprehensive Exam Comprehensive Medical Decision Making Moderate Complexity Diagnoses Amputation of one or more toes S98.139A Chronic hypertension I10 Diabetes mellitus, type II E11.52 Diabetes mellitus filler leaf cutter long insulin use: without filler leaf cutter long use Diabetes mellitus complication status: with circulatory complication Diabetes mellitus complication detail: with peripheral angiopathy with gangrene Diabetic feet E11.8 S/P hemodialysis catheter insertion Z99.2 Erectile dysfunction due to diseases classified elsewhere N52.1 PAD (peripheral artery disease) I73.9 Dyslipidemia E78.5 End stage renal failure on dialysis N18.6; Z99.2 CAD (coronary artery disease) I25.10 Coronary Disease-Associated Artery/Lesion type: [place] artery [place] vs. transplanted heart: [place] heart Associated angina: without angina
[2021-07-23 07:06] LABS: Anion Gap 23.8 (5-19); Blood Urea Nitrogen 50 mg/dL (6-20); Carbon Dioxide 23 mmol/L (22-29); Chloride 86 mmol/L (98-107); Glomerular Filtration Rate 4.6 mL/min (90-130); Glucose 174 mg/dL (65-115); Osmolality Calculated 288 mOsm/kg (285-295); Sodium 130 mmol/L (136-145)
[2021-07-23 07:17] LABS: Potassium 2.8 mmol/L (3.5-5.1)
[2021-07-23] MEDS: potassium chloride premix 100 ML 50 MEQ IV (08:00)
--- NOTE | 2021-07-23 08:35 | PC.NURSE ---
received pt at 830 post peripheral. continued fluids for 100ml/hr per order.
--- NOTE | 2021-07-23 09:31 | PC.NURSE ---
received pt from chemistry lab instructor post peripheral. left femoral access intact and connected to pressure bag. no bruising or hematoma noted. pt complains of no pain. plan to draw ptt at 1130 to check if sheath can be pulled. pt to be monitored per protocol. dr torres to talk to pt now.
[2021-07-23 12:20] LABS: Partial Thromboplastin Time 56.9 SECONDS (23.9-36.7)
--- NOTE | 2021-07-23 12:51 | PC.NURSE ---
ptt result 56.9. too high to pull sheath at this time. pt notified and stated he understood. pt has chronic back pain. verbal order obtained for his normal pain meds from home to be ordered.
[2021-07-23] MEDS: HYDROcodone-acetaminophen 10-325 mg Tablet 1 TAB PO (13:11)
[2021-07-23] MEDS: ondansetron 2 mg/ML SDV 2 mL 4 MG IVP (13:55)
[2021-07-23 14:23] LABS: Partial Thromboplastin Time 52.7 SECONDS (23.9-36.7)
[2021-07-23] MEDS: magnesium hydroxide 30 mL UDC PO (14:55)
[2021-07-23] MEDS: fentaNYL 50 mcg/mL INJ 2mL IVP (15:15)
[2021-07-23] MEDS: ondansetron 2 mg/ML SDV 2 mL 8 MG IVP (15:31)
--- NOTE | 2021-07-23 15:56 | PC.NURSE ---
6 Chinese sheath removed per protocol. no complications, no bleeding or hematoma noted. left groin soft and no pain reported post manual compression. betadine and 4x4 covering site with tegaderm. vital signs stable.
--- NOTE | 2021-07-23 16:15 | PC.NURSE ---
Pt transferred to a floor bed due to the pt discomfort. will continue recovery until floor room is available.
--- NOTE | 2021-07-23 17:38 | PC.NURSE ---
pt transferred to [facility]. bedside report given to rodrigue.
[2021-07-24] VITALS (8 sets, daily range): BP systolic 127–156; BP diastolic 81–83; PULSE 88–97; RESP 4–16; TEMP 36.7; O2SAT 95–98
--- NOTE | 2021-07-24 07:43 | P.DS_ITS ---
Discharge Providers Date of Admission: July 23, 2021 Date of Discharge: July 24, 2021 Attending Provider at Admission: gale Attending Provider at Discharge: Mahesh Bridges MD Primary Care Provider: ENRIQUE Ramirez Diagnoses at Discharge Discharge Diagnosis (1) Amputation of one or more toes: Status: Acute (2) Chronic hypertension: Status: Acute (3) Diabetes mellitus, type II: Status: Acute Qualifiers: Diabetes mellitus rig builder helper insulin use: without rig builder helper use Diabetes mellitus complication status: with circulatory complication Diabetes mellitus complication detail: with peripheral angiopathy with gangrene Qualified Code(s): E11.52 - Type 2 diabetes mellitus with diabetic peripheral angiopathy with gangrene Permanent problem details: HbA1c 4.5 in August 03, 2020 (4) Diabetic feet: Status: Acute (5) S/P hemodialysis catheter insertion: Status: Resolved (6) Erectile dysfunction due to diseases classified elsewhere: Status: Chronic (7) PAD (peripheral artery disease): Status: Acute Permanent problem details: With critical lower limb ischemia 06/2019 requiring intervention with CSI atherectomy of the SFA followed by [id number] balloon angioplasty, CSI atherectomy of the tibial peroneal trunk and left anterior tibial followed by balloon angioplasty, reconstruction of the arch of the foot which was completely occluded. (8) Dyslipidemia: Status: Acute (9) End stage renal failure on dialysis: Status: Acute Permanent problem details: Peritoneal dialysis normally, on HD since 08/2019 when peritoneal dialysis catheter removed, due to have replaced in [place] 07/24/20 (10) CAD (coronary artery disease): Status: Acute Qualifiers: Coronary Disease-Associated Artery/Lesion type: [place] artery [place] vs. transplanted heart: [place] heart Associated angina: without angina Qualified Code(s): I25.10 - Atherosclerotic heart disease of [place] coronary artery without angina pectoris Permanent problem details: Cardiac stent x1 Reason for Visit Reason for Visit: [id number] i73.9 Brief History: Patient was admitted electively yesterday for purposes of an attempt at intervention to the distal right superficial femoral artery. He has severe lower extremity peripheral arterial disease with critical limb ischemia on the right. Hospital Course Hospital Course The procedure was performed from the left common femoral artery. We had extreme difficulty with getting around the aortic bifurcation and telescoping of the catheter up into the aorta. Finally after multiple wire exchanges and catheter changes we were able to get a wire across the lesion. Subsequently, multiple attempts were made with catheters to cross the lesion which was ultimately unsuccessful. The patient's procedure was terminated then. Due to the late sheath pull patient was kept overnight. He had some nausea and vomiting after the procedure but that has resolved by the time of discharge. The left groin entry site was flat, dry without any bleeding or hematoma at the time of discharge. He will follow-up with his dialysis as scheduled and with Dr. Leonardo next Tuesday in the wound clinic. The only other possibility for intervention would be for him to be referred for antegrade stick of the right femoral artery with an attempted angioplasty from that side. He will think about this. Physical Exam Narrative: GENERAL: In general he is comfortable. HEENT: Exam within normal limits. NECK: Supple without jugular vein distention. The carotid upstroke is normal without bruits. BACK: Exam normal. LUNGS: Clear. HEART: Regular rate and rhythm. ABDOMEN: Benign without organomegaly or tenderness. EXTREMITIES: No edema. Left forefoot amputation on the left. Wet gangrene of the toes on the right. No pulses in either foot. NEUROLOGIC: Exam normal. SKIN: Unremarkable. Discharge Data Studies Completed and Pending Completed Studies During Hospitalization Category Date Time Status X RAY EXAMINER OF AIRCRAFT request for service Routine Exams 07/23/21 06:00 Completed Laboratory Results WBC 18.9 10^3/uL (4.0-10.0) H 07/23/21 06:36 RBC 4.21 10^6/uL (4.1-5.3) 07/23/21 06:36 Hgb 11.8 g/dL (11.7-16.6) 07/23/21 06:36 Hct 36.6 % (42.0-52.0) L 07/23/21 06:36 MCV 86.9 fl (80-94) 07/23/21 06:36 MCH 28.0 pg (28.0-34.0) 07/23/21 06:36 MCHC 32.2 g/dL (30.0-36.0) 07/23/21 06:36 RDW 14.2 % (12.1-15.1) 07/23/21 06:36 Plt Count 403 10^3/cmm (130-400) H 07/23/21 06:36 MPV 9.5 fL (7.4-10.4) 07/23/21 06:36 Neut % (Auto) 73.8 % 07/23/21 06:36 Lymph % (Auto) 11.5 % 07/23/21 06:36 Summers % (Auto) 9.0 % 07/23/21 06:36 Eos % (Auto) 3.5 % 07/23/21 06:36 Baso % (Auto) 1.4 % 07/23/21 06:36 Neut # (Auto) 13.96 10^3/uL (1.8-7.7) H 07/23/21 06:36 Lymph # (Auto) 2.2 10^3/uL (0.8-4.8) 07/23/21 06:36 Summers # (Auto) 1.7 10^3/uL (0.2-0.9) H 07/23/21 06:36 Eos # (Auto) 0.7 10^3/uL (0.0-0.8) 07/23/21 06:36 Baso # (Auto) 0.3 10^3/uL (0.0-0.1) H 07/23/21 06:36 Nucleated RBC % (auto) 0 % 07/23/21 06:36 Nucleated RBCs # 0.0 /100WBC 07/23/21 06:36 APTT 52.7 SECONDS (23.9-36.7) H 07/23/21 13:00 Sodium 130 mmol/L (136-145) L 07/23/21 06:36 Potassium 2.8 mmol/L (3.5-5.1) L* 07/23/21 06:36 Chloride 86 mmol/L (98-107) L 07/23/21 06:36 Carbon Dioxide 23 mmol/L (22-29) 07/23/21 06:36 Anion Gap 23.8 (5-19) H 07/23/21 06:36 BUN 50 mg/dL (6-20) H 07/23/21 06:36 Creatinine 11.5 mg/dL (0.7-1.2) H* 07/23/21 06:36 GFR Calculation 4.6 mL/min (90-130) L 07/23/21 06:36 Glucose 174 mg/dL (65-115) H 07/23/21 06:36 Calculated Osmolality 288 mOsm/kg (285-295) 07/23/21 06:36 Calcium 9.0 mg/dL (8.5-10.5) 07/23/21 06:36 Procedures Performed Angiography of the right lower extremity with attempted angioplasty of the distal superficial femoral artery, unsuccessful. Vitals Last Vital Signs Temp 98.1 F 07/24/21 07:30 Pulse 90 07/24/21 07:30 Resp 15 07/24/21 07:30 BP 141/82 07/24/21 07:30 Pulse Ox 98 07/24/21 07:30 Discharge Plan Discharge Patient Disposition: Home Prescriptions: Continued (DME) diabetic shoes and inserts See Rx Instructions .Route .MEDSUPPLY Qty: 1 0RF Rx Instructions: As directed (DME) pen needle, diabetic [Comfort EZ Pen [place]] 31 gauge x 3/16 needle See Rx Instructions .Route Qty: 100 3RF Rx Instructions: As directed Nikolas (honey) 100 % paste 1 applic topical TID Qty: 103 0RF Rx Instructions: moderate area buttocks hydroxyzine HCl 50 mg tablet 50 mg PO BID PRN (Reason: itching) Qty: 60 2RF hydrocodone-acetaminophen 10-325 mg tablet 1 tab PO Q4H PRN (Reason: Pain) 0RF (DME) Diabetic shoes with inserts See Rx Instructions .Route .MEDSUPPLY Qty: 1 0RF Rx Instructions: As directed zolpidem 10 mg tablet 10 mg PO .qhs Qty: 30 2RF insulin detemir U-100 100 unit/mL (3 mL) insulin pen 20 unit SUBCUT DAILY Qty: 15 5RF (DME) Diabetic shoes with inserts and toe filler See Rx Instructions .Route .MEDSUPPLY Qty: 1 0RF Rx Instructions: As directed atorvastatin 20 mg tablet 20 mg PO DAILY Qty: 30 5RF levothyroxine 125 mcg tablet See Rx Instructions .ROUTE .COMPLEX Qty: 30 2RF Dose Instruction: TAKE ONE TABLET BY MOUTH DAILY Rx Instructions: TAKE ONE TABLET BY MOUTH DAILY clindamycin HCl 300 mg capsule 300 mg PO TID Qty: 21 0RF nifedipine 30 mg Tablet Extended Release 60 mg PO DAILY 30 Days Qty: 30 0RF sennosides-docusate sodium 8.6-50 mg Tablet 1 tab PO BID Qty: 60 0RF (DME) glucometer See Rx Instructions .Route .MEDSUPPLY Qty: 1 0RF Rx Instructions: As directed (DME) glucometer strips See Rx Instructions .Route .MEDSUPPLY Qty: 100 0RF Rx Instructions: As directed aspirin 81 mg tablet,delayed release (DR/EC) 81 mg PO DAILY Qty: 30 0RF Discharge Orders: Discharge Order (Routine); Ordered 07/24/21 Ordered By: Mahesh Bridges Referrals: Cindy Crews FNP [Nurse Practitioner] - 7-10 days (Check left groin site.) Diet: Diabetic Activity: Limit activity as instructed Activity Restrictions/Additional Instructions: No lifting over 5 pounds for 2 days Discharge Attestations Time Spent in Discharge Care*: greater than 30 min Status at Discharge: Cognitive status at discharge: cognitively intact , Behavioral status at discharge: cooperative , Quality Metrics Clinical Quality Measures [ No reported AMI, CVA or VTE this stay] Coding Level of Care Code New Pt Acute Chg FW DC note Patient Type New History Detailed Exam Detailed Medical Decision Making Moderate Complexity Diagnoses Amputation of one or more toes S98.139A Chronic hypertension I10 Diabetes mellitus, type II E11.52 Diabetes mellitus rig builder helper insulin use: without rig builder helper use Diabetes mellitus complication status: with circulatory complication Diabetes mellitus complication detail: with peripheral angiopathy with gangrene Diabetic feet E11.8 S/P hemodialysis catheter insertion Z99.2 Erectile dysfunction due to diseases classified elsewhere N52.1 PAD (peripheral artery disease) I73.9 Dyslipidemia E78.5 End stage renal failure on dialysis N18.6; Z99.2 CAD (coronary artery disease) I25.10 Coronary Disease-Associated Artery/Lesion type: [place] artery [place] vs. transplanted heart: [place] heart Associated angina: without angina
== END 2021-07-24 11:14 | disposition home or self-care (01) ==
LOC: CCL 13:15 → MEDSURG 07-24 03:08
PROVIDERS: PCP Nurse Practitioner Family; Visit Provider Internal Medicine Cardiovascular Disease
DX: S98.139A Complete traumatic amputation of one unspecified lesser toe, initial encounter (principal); X58.XXXA Exposure to other specified factors, initial encounter; I10 Essential (primary) hypertension; E11.52 Type 2 diabetes mellitus with diabetic peripheral angiopathy with gangrene; Z99.2 Dependence on renal dialysis; I73.9 Peripheral vascular disease, unspecified; E78.5 Hyperlipidemia, unspecified; I25.10 Atherosclerotic heart disease of native coronary artery without angina pectoris; E11.22 Type 2 diabetes mellitus with diabetic chronic kidney disease; I12.0 Hypertensive chronic kidney disease with stage 5 chronic kidney disease or end stage renal disease; N18.6 End stage renal disease; Z79.82 Long term (current) use of aspirin; Z79.4 Long term (current) use of insulin
CPT/HCPCS: 36415; 75710; 80048; 85025; 85730; 96360; 96361; 99152; 99153; C1769; C1887; C1894; J1644; J2250; J2405; J3010; J3480; J7030; Q0163; Q9967

== ENCOUNTER → 2021-07-29 08:17 | Outpatient (BNVA) | payer MEDICARE, MEDICAID, SELFPAY | PROVIDERS: PCP Nurse Practitioner Family; Visit Provider Nurse Practitioner Family | DX: E11.621 Type 2 diabetes mellitus with foot ulcer (principal); L97.512 Non-pressure chronic ulcer of other part of right foot with fat layer exposed; I96 Gangrene, not elsewhere classified | CPT/HCPCS: 99213 ==

== ENCOUNTER → 2021-08-07 13:56 | Outpatient (BNVA) | payer MEDICARE, MEDICAID, SELFPAY | PROVIDERS: PCP Nurse Practitioner Family; Visit Provider Podiatrist Foot & Ankle Surgery | DX: E11.621 Type 2 diabetes mellitus with foot ulcer (principal); L97.511 Non-pressure chronic ulcer of other part of right foot limited to breakdown of skin; I73.9 Peripheral vascular disease, unspecified; L60.3 Nail dystrophy; E11.21 Type 2 diabetes mellitus with diabetic nephropathy | CPT/HCPCS: 73630; 99204 ==

== ENCOUNTER → 2021-08-21 13:18 | Outpatient (BNVA) | payer MEDICARE, MEDICAID, SELFPAY | PROVIDERS: PCP Nurse Practitioner Family; Visit Provider Podiatrist Foot & Ankle Surgery | DX: E11.621 Type 2 diabetes mellitus with foot ulcer (principal); L97.519 Non-pressure chronic ulcer of other part of right foot with unspecified severity; I73.9 Peripheral vascular disease, unspecified; L60.3 Nail dystrophy; E11.21 Type 2 diabetes mellitus with diabetic nephropathy | CPT/HCPCS: 99214 ==

== ENCOUNTER 2021-08-21 14:36 | Outpatient (CLI) | payer MEDICARE, MEDICAID, SELFPAY | END 2021-08-21 14:37 | disposition home or self-care (01) | LOC: SPT 14:37 | PROVIDERS: PCP Nurse Practitioner Family; Visit Provider Podiatrist Foot & Ankle Surgery | DX: Z46.89 Encounter for fitting and adjustment of other specified devices (principal); E11.621 Type 2 diabetes mellitus with foot ulcer | CPT/HCPCS: 99214; L4361 ==

== ENCOUNTER → 2021-08-31 11:10 | Outpatient (BNVA) | payer MEDICARE, MEDICAID, SELFPAY | PROVIDERS: PCP Nurse Practitioner Family; Visit Provider Podiatrist Foot & Ankle Surgery | DX: E11.621 Type 2 diabetes mellitus with foot ulcer (principal); L97.519 Non-pressure chronic ulcer of other part of right foot with unspecified severity; I73.9 Peripheral vascular disease, unspecified; L60.3 Nail dystrophy; E11.21 Type 2 diabetes mellitus with diabetic nephropathy; Z79.4 Long term (current) use of insulin | CPT/HCPCS: 99214 ==

== ENCOUNTER → 2021-09-30 09:41 | Outpatient (BNVA) | payer MEDICARE, MEDICAID, SELFPAY | PROVIDERS: PCP Nurse Practitioner Family; Visit Provider Podiatrist Foot & Ankle Surgery | DX: E11.621 Type 2 diabetes mellitus with foot ulcer (principal); I73.9 Peripheral vascular disease, unspecified; L60.3 Nail dystrophy; E11.21 Type 2 diabetes mellitus with diabetic nephropathy; L97.519 Non-pressure chronic ulcer of other part of right foot with unspecified severity; Z79.4 Long term (current) use of insulin | CPT/HCPCS: 99214 ==

== ENCOUNTER → 2021-11-10 11:15 | Outpatient (BNVA) | payer MEDICARE, MEDICAID, SELFPAY | PROVIDERS: PCP Nurse Practitioner Family; Visit Provider Podiatrist Foot & Ankle Surgery | DX: I73.9 Peripheral vascular disease, unspecified (principal); E11.621 Type 2 diabetes mellitus with foot ulcer; L97.519 Non-pressure chronic ulcer of other part of right foot with unspecified severity; Z79.4 Long term (current) use of insulin | CPT/HCPCS: 99213; 99214 ==

== ENCOUNTER 2021-11-13 10:00 | Outpatient (RCR) | payer MEDICARE, MEDICAID, SELFPAY ==
[2021-10-30] MEDS: cefTRIAXone 2,000 MG in sodium chloride 0.9% (plus) 50 ML 100 MG IV (08:47)
[2021-10-30 08:51] VITALS: BP 133/79; PULSE 102; RESP 18; TEMP 36.7; O2SAT 99
[2021-10-30] MEDS: DAPTOmycin 500 MG in sodium chloride 0.9% (100 ml) 100 ML 100 MG IV (09:12)
[2021-10-31] MEDS: cefTRIAXone 2,000 MG in sodium chloride 0.9% (plus) 50 ML 100 MG IV (10:16)
[2021-10-31] MEDS: DAPTOmycin 500 MG in sodium chloride 0.9% (100 ml) 100 ML 100 MG IV (10:23)
[2021-10-31 10:24] VITALS: BP 157/95; PULSE 98; RESP 18; TEMP 36.8; O2SAT 100
[2021-11-01 10:01] VITALS: BP 125/86; PULSE 98; RESP 18; TEMP 36.9; O2SAT 100
[2021-11-01] MEDS: DAPTOmycin 500 MG in sodium chloride 0.9% (100 ml) 100 ML 100 MG IV (10:05)
[2021-11-01] MEDS: cefTRIAXone 2,000 MG in sodium chloride 0.9% (plus) 50 ML 100 MG IV (10:10)
[2021-11-02] MEDS: DAPTOmycin 500 MG in sodium chloride 0.9% (100 ml) 100 ML 125 MG IV (10:38)
[2021-11-02] MEDS: cefTRIAXone 2,000 MG in sodium chloride 0.9% (plus) 50 ML 100 MG IV (10:38)
[2021-11-02 10:46] LABS: Basophils # 0.3 10^3/uL (0.0-0.1); Eosinophils # 0.5 10^3/uL (0.0-0.8); Eosinophils % 3.8 %; Hematocrit 28.7 % (42.0-52.0); Lymphocytes # 1.6 10^3/uL (0.8-4.8); Mean Corpuscular HGB Conc 31.4 g/dL (30.0-36.0); Mean Corpuscular Hemoglobin 28.6 pg (28.0-34.0); Mean Corpuscular Volume 91.1 fl (80-94); Monocytes # 1.4 10^3/uL (0.2-0.9); Monocytes % 10.8 %; Neutrophils # 8.78 10^3/uL (1.8-7.7); Neutrophils % 69.4 %; Nucleated Red Blood Cells % 0 %; Platelet Count 338 10^3/cmm (130-400); Red Blood Count 3.15 10^6/uL (4.1-5.3); Red Cell Distribution Width 15.8 % (12.1-15.1); White Blood Count 12.6 10^3/uL (4.0-10.0)
[2021-11-02 11:16] VITALS: BP 103/66; PULSE 84; RESP 18; TEMP 36.3; O2SAT 100
[2021-11-02 11:45] LABS: Alanine Aminotransferase 11 U/L (0-41); Albumin Level 2.4 g/dL (3.5-5.2); Alkaline Phosphatase 150 U/L (40-130); Anion Gap 16.2 (5-19); Aspartate Amino Transferase 15 U/L (0-40); Blood Urea Nitrogen 33 mg/dL (6-20); Carbon Dioxide 26 mmol/L (22-29); Chloride 91 mmol/L (98-107); Creatine Phosphokinase 83 U/L (39-308); Glomerular Filtration Rate 6.1 mL/min (90-130); Glucose 126 mg/dL (65-115); Osmolality Calculated 277 mOsm/kg (285-295); Potassium 4.2 mmol/L (3.5-5.1); Sodium 129 mmol/L (136-145); Total Bilirubin 0.2 mg/dL (0.15-1.2); Total Protein 5.4 g/dL (6.6-8.7)
--- NOTE | 2021-11-02 13:30 | PC.NURSE ---
Alejandro Tello, Pharmacist, called regarding pt Daptomycin dose. Due to patient renal status and being on peritoneal dialysis, recommended dose of Daptomycin is 500 mg every 48 hours instead of daily. Creatnine drawn today noted at 9.0. [facility] stated Creatnine from 10/29 was 12. [employer] Farmworker at [facility], Oma, notified of pharmacist recommendation to decrease Daptomycin dose to every 48 hours. Ainsley Summers OFFICE ASSISTANT RECEPTIONIST at [facility] notified of increased Creatnine level and recommendation to decrease frequency of Daptomycin. Orders received from Ainsley Summers to decrease Daptomycin to 500 mg IV every 48 hours and pharmacy to continue dosing for medication. Oma from [facility] returned call after talking to ID team and states pharmacy recommendation is ok per ID team.
[2021-11-03] MEDS: cefTRIAXone 2,000 MG in sodium chloride 0.9% (plus) 50 ML 100 MG IV (09:08)
[2021-11-03 09:17] VITALS: BP 124/80; PULSE 92; RESP 18; TEMP 36.6; O2SAT 99
[2021-11-04] MEDS: cefTRIAXone 2,000 MG in sodium chloride 0.9% (plus) 50 ML 100 MG IV (10:01)
[2021-11-04] MEDS: DAPTOmycin 500 MG in sodium chloride 0.9% (100 ml) 100 ML 100 MG IV (10:01)
[2021-11-04 10:12] VITALS: BP 146/83; PULSE 94; RESP 18; TEMP 36.7; O2SAT 98
[2021-11-05] MEDS: cefTRIAXone 2,000 MG in sodium chloride 0.9% (plus) 50 ML 100 MG IV (11:03)
[2021-11-05 11:06] VITALS: BP 136/83; PULSE 95; RESP 18; TEMP 36.6; O2SAT 100
[2021-11-06] MEDS: DAPTOmycin 500 MG in sodium chloride 0.9% (100 ml) 100 ML 120 MG IV (10:40)
[2021-11-06] MEDS: cefTRIAXone 2,000 MG in sodium chloride 0.9% (plus) 50 ML 100 MG IV (10:40)
[2021-11-06 10:57] VITALS: BP 113/72; PULSE 100; RESP 18; TEMP 36.2; O2SAT 100
[2021-11-07 10:00] VITALS: BP 109/72; PULSE 100; RESP 18; TEMP 36.4; O2SAT 100
[2021-11-07] MEDS: cefTRIAXone 2,000 MG in sodium chloride 0.9% (plus) 50 ML 100 MG IV (10:15)
[2021-11-07 10:55] VITALS: BP 131/82; PULSE 90; RESP 16; TEMP 36.6; O2SAT 100
[2021-11-08 10:11] VITALS: BP 148/81; PULSE 87; RESP 18; TEMP 36.2; O2SAT 100
[2021-11-08] MEDS: cefTRIAXone 2,000 MG in sodium chloride 0.9% (plus) 50 ML 100 MG IV (10:17)
[2021-11-08] MEDS: DAPTOmycin 500 MG in sodium chloride 0.9% (100 ml) 100 ML 100 MG IV (10:18)
[2021-11-09 10:10] VITALS: BP 156/97; PULSE 100; RESP 18; TEMP 36.9; O2SAT 100
[2021-11-09] MEDS: cefTRIAXone 2,000 MG in sodium chloride 0.9% (plus) 50 ML 100 MG IV (10:20)
[2021-11-09 10:29] LABS: Basophils # 0.2 10^3/uL (0.0-0.1); Basophils % 1.9 %; Eosinophils # 0.4 10^3/uL (0.0-0.8); Eosinophils % 3.2 %; Hematocrit 31.2 % (42.0-52.0); Hemoglobin 9.9 g/dL (11.7-16.6); Lymphocytes # 1.9 10^3/uL (0.8-4.8); Mean Corpuscular HGB Conc 31.7 g/dL (30.0-36.0); Mean Corpuscular Hemoglobin 28.9 pg (28.0-34.0); Mean Corpuscular Volume 91.2 fl (80-94); Mean Platelet Volume 9.6 fL (7.4-10.4); Monocytes % 8.3 %; Neutrophils # 8.72 10^3/uL (1.8-7.7); Nucleated Red Blood Cells % 0.2 %; Platelet Count 281 10^3/cmm (130-400); Red Blood Count 3.42 10^6/uL (4.1-5.3); Red Cell Distribution Width 15.6 % (12.1-15.1); White Blood Count 12.3 10^3/uL (4.0-10.0)
[2021-11-09 10:49] LABS: Alanine Aminotransferase 23 U/L (0-41); Albumin Level 2.8 g/dL (3.5-5.2); Alkaline Phosphatase 183 U/L (40-130); Anion Gap 16.8 (5-19); Aspartate Amino Transferase 31 U/L (0-40); Blood Urea Nitrogen 27 mg/dL (6-20); Calcium 8.9 mg/dL (8.5-10.5); Carbon Dioxide 28 mmol/L (22-29); Chloride 94 mmol/L (98-107); Globulin 2.8 g/dL (1.3-4.6); Glomerular Filtration Rate 6.4 mL/min (90-130); Glucose 124 mg/dL (65-115); Osmolality Calculated 287 mOsm/kg (285-295); Potassium 3.8 mmol/L (3.5-5.1); Sodium 135 mmol/L (136-145); Total Bilirubin 0.2 mg/dL (0.15-1.2); Total Protein 5.6 g/dL (6.6-8.7)
[2021-11-09 10:54] LABS: Creatine Phosphokinase 329 U/L (39-308)
--- NOTE | 2021-11-09 11:04 | PC.NURSE ---
Gladis Summers's nurse, Renee ([email or web address]), notified of critical Creatnine and CK levels. Copy of all labs faxed to clinic.
[2021-11-10 10:25] VITALS: BP 148/83; PULSE 90; RESP 18; TEMP 36.3; O2SAT 100
[2021-11-10] MEDS: DAPTOmycin 500 MG in sodium chloride 0.9% (100 ml) 100 ML 125 MG IV (10:25)
[2021-11-10] MEDS: cefTRIAXone 2,000 MG in sodium chloride 0.9% (plus) 50 ML 100 MG IV (10:27)
--- NOTE | 2021-11-10 12:38 | PC.NURSE ---
Dr. Carmen, podiatry, called this nurse regarding pt PICC line. Okay to dc PICC following last dose of antibiotics on 12/01/21.
[2021-11-11] MEDS: cefTRIAXone 2,000 MG in sodium chloride 0.9% (plus) 50 ML 100 MG IV (10:30)
[2021-11-11 10:57] VITALS: BP 151/85; PULSE 92; RESP 18; TEMP 36.4; O2SAT 100
[2021-11-12] MEDS: DAPTOmycin 500 MG in sodium chloride 0.9% (100 ml) 100 ML 125 MG IV (10:35)
[2021-11-12] MEDS: cefTRIAXone 2,000 MG in sodium chloride 0.9% (plus) 50 ML 100 MG IV (10:36)
[2021-11-12 11:03] VITALS: BP 176/97; PULSE 89; RESP 18; TEMP 36.8; O2SAT 100
[2021-11-13 10:30] VITALS: RESP 18
[2021-11-13] MEDS: cefTRIAXone 2,000 MG in sodium chloride 0.9% (plus) 50 ML 100 MG IV (10:30)
== END 2021-11-13 23:59 | disposition home or self-care (01) ==
LOC: GILAB 10:00
PROVIDERS: PCP Nurse Practitioner Family; Visit Provider Student in an Organized Health Care Education/Training Program
DX: M86.9 Osteomyelitis, unspecified (principal)
CPT/HCPCS: 36592; 80053; 82550; 85025; 96365; 96367; J0696; J0878

== ENCOUNTER 2021-11-16 09:07 | Outpatient (RCR) | payer MEDICARE, MEDICAID, SELFPAY ==
[2021-11-14 09:41] VITALS: BP 158/88; PULSE 94; RESP 18; TEMP 36.9; O2SAT 100
[2021-11-14] MEDS: cefTRIAXone 2,000 MG in sodium chloride 0.9% (plus) 50 ML 100 MG IV (10:00)
[2021-11-14] MEDS: DAPTOmycin 500 MG in sodium chloride 0.9% (100 ml) 100 ML 100 MG IV (10:00)
[2021-11-15] MEDS: cefTRIAXone 2,000 MG in sodium chloride 0.9% (plus) 50 ML 100 MG IV (10:00)
[2021-11-16 09:20] VITALS: BP 137/77; PULSE 87; RESP 18; TEMP 36.6; O2SAT 100
[2021-11-16] MEDS: cefTRIAXone 2,000 MG in sodium chloride 0.9% (plus) 50 ML 100 MG IV (09:20)
[2021-11-16] MEDS: DAPTOmycin 500 MG in sodium chloride 0.9% (100 ml) 100 ML 125 MG IV (09:25)
[2021-11-16 09:33] LABS: Basophils # 0.3 10^3/uL (0.0-0.1); Basophils % 2.2 %; Eosinophils # 0.5 10^3/uL (0.0-0.8); Eosinophils % 4.1 %; Hematocrit 32.3 % (42.0-52.0); Hemoglobin 10.3 g/dL (11.7-16.6); Lymphocytes # 1.6 10^3/uL (0.8-4.8); Mean Corpuscular HGB Conc 31.9 g/dL (30.0-36.0); Mean Corpuscular Hemoglobin 29.7 pg (28.0-34.0); Mean Corpuscular Volume 93.1 fl (80-94); Mean Platelet Volume 10.1 fL (7.4-10.4); Monocytes # 1.4 10^3/uL (0.2-0.9); Monocytes % 11.5 %; Neutrophils # 8.45 10^3/uL (1.8-7.7); Neutrophils % 68.6 %; Nucleated Red Blood Cells % 0 %; Platelet Count 266 10^3/cmm (130-400); Red Blood Count 3.47 10^6/uL (4.1-5.3); Red Cell Distribution Width 17.4 % (12.1-15.1); White Blood Count 12.3 10^3/uL (4.0-10.0)
[2021-11-16 09:55] LABS: Alanine Aminotransferase 39 U/L (0-41); Albumin Level 2.7 g/dL (3.5-5.2); Alkaline Phosphatase 163 U/L (40-130); Anion Gap 15.8 (5-19); Aspartate Amino Transferase 52 U/L (0-40); Blood Urea Nitrogen 27 mg/dL (6-20); Calcium 9.8 mg/dL (8.5-10.5); Carbon Dioxide 29 mmol/L (22-29); Chloride 91 mmol/L (98-107); Globulin 2.8 g/dL (1.3-4.6); Glomerular Filtration Rate 7.2 mL/min (90-130); Glucose 141 mg/dL (65-115); Osmolality Calculated 281 mOsm/kg (285-295); Potassium 3.8 mmol/L (3.5-5.1); Sodium 132 mmol/L (136-145); Total Bilirubin 0.2 mg/dL (0.15-1.2); Total Protein 5.5 g/dL (6.6-8.7)
[2021-11-16 10:00] LABS: Creatine Phosphokinase 512 U/L (39-308)
--- NOTE | 2021-11-16 10:46 | PC.NURSE ---
Critical CK of 512 and Creatnine 7.[address] Carmen. Orders received to stop antibiotics and discontinue PICC line. Pt was scheduled 12/07/21 for surgery to remove toe with osteo. Dr. Carmen's office will be reaching out to pt to move surgery up.
[2021-11-17 08:05] VITALS: BP 136/85; PULSE 89; RESP 18; TEMP 36.3; O2SAT 94
--- NOTE | 2021-11-17 08:10 | PC.NURSE ---
Left PICC dc'd as ordered per Dr. Carmen. Catheter length noted at 43 cm and intact. Pressure held for approx 5 min. Pt tolerated well. Instructed pt to hold pressure for any bleeding, look for S&S of possible infection, and return to ED for SOB.
== END 2021-12-14 23:59 | disposition home or self-care (01) ==
LOC: GILAB 09:07
PROVIDERS: PCP Nurse Practitioner Family; Visit Provider Student in an Organized Health Care Education/Training Program
DX: M86.9 Osteomyelitis, unspecified (principal)
CPT/HCPCS: 36592; 80053; 82550; 85025; 96365; 96367; J0696; J0878

== ENCOUNTER → 2021-11-26 10:53 | Outpatient (BNVA) | payer MEDICARE, MEDICAID, SELFPAY | PROVIDERS: PCP Nurse Practitioner Family; Visit Provider Podiatrist Foot & Ankle Surgery | DX: I73.9 Peripheral vascular disease, unspecified (principal); E11.621 Type 2 diabetes mellitus with foot ulcer; L97.519 Non-pressure chronic ulcer of other part of right foot with unspecified severity; Z79.4 Long term (current) use of insulin | CPT/HCPCS: 99024; 99215 ==

== ENCOUNTER 2021-12-04 08:25 | Day surgery (SDC) | payer MEDICARE, MEDICAID, SELFPAY ==
[2021-12-03 12:55] VITALS: BMI 28.9
--- NOTE | 2021-12-04 08:05 | P.ANESASSM_ITS ---
Pre-Anesthetic Assessment Height/Weight: Height 1.75 m Weight 88.904 kg Preop Diagnosis: Gangrene left fourth toe amputation site Operation Date: 12/04/21 07:50 Proposed Procedures p Right second toe amputation 74849,E11.621,L97.509(Right) - Rolando Carmen DPM Familial anesthetic complications: none Was Beta Fern taken within 24 hours: Yes Was Clonidine taken within 24 hours: N/A Social Tobacco and No alcohol Exam alert, oriented x 3 and regular rate & rhythm Airway Submandibular: within normal limits Cervical ROM: within normal limits Mallampati: Class II Dentition: false CV/HEM Hypertension and Peripheral Vascular Disease Chronic Renal Failure peritoneal dialysis GI Gastroesophageal Reflux Disease Metabolic Diabetes Mellitus and Hyperlipidemia Anesthetic Plan ASA status: 3 Anesthesia: Choice Medications/Allergies Home Medications Medication Instructions Recorded Confirmed Last Taken Type hydrocodone 10 mg-acetaminophen 1 tab PO Q4H PRN Pain 03/01/19 12/03/21 11/07/21 History 325 mg tablet glucometer #1 ea 07/28/19 11/26/21 Unknown Rx glucometer strips #100 ea 07/28/19 11/26/21 Unknown Rx sennosides 8.6 mg-docusate sodium 1 tab PO BID #60 tabs 07/28/19 12/03/21 11/07/21 Rx 50 mg tablet Diabetic shoes with inserts and #1 ea 12/12/19 11/26/21 Unknown Rx toe filler aspirin 81 mg tablet,delayed 81 mg PO DAILY #30 tabs 07/23/20 12/03/21 11/07/21 Rx release diabetic shoes and inserts #1 ea 11/05/20 11/26/21 Unknown Rx pen needle, diabetic 31 gauge x #100 ea 03/05/21 11/26/21 Unknown Rx 3/16 (Comfort EZ Pen [place]) atorvastatin 20 mg tablet 20 mg PO DAILY #30 tabs 04/01/21 12/03/21 07/23/21 04:30 Rx Diabetic shoes with inserts #1 ea 05/22/21 11/26/21 Unknown Rx insulin detemir U-100 100 unit/mL 20 unit (0.2 mL) SUBCUT DAILY #15 06/11/21 12/03/21 11/07/21 Rx (3 mL) subcutaneous pen mL short cam boot to the right #1 ea 08/21/21 11/26/21 Unknown Rx levothyroxine 125 mcg tablet See Rx Instructions .Route 09/29/21 12/03/21 Rx .COMPLEX #30 tabs calcium carbonate 200 mg calcium 200 mg PO TID 10/30/21 12/03/21 11/07/21 History (500 mg) chewable tablet carvedilol 6.25 mg tablet 6.25 mg PO BID 10/30/21 12/03/21 11/07/21 History nifedipine 20 mg capsule 60 mg PO TID 10/30/21 12/03/21 11/07/21 History doxycycline hyclate 100 mg tablet 100 mg PO Q12H 7 days #14 tabs 12/03/21 Unknown Rx hydrocodone 5 mg-acetaminophen 325 1 tab PO Q8H PRN pain 5 days #15 12/03/21 Unknown Rx mg tablet tabs Allergies Allergy/AdvReac Type Severity Reaction Status Date / Time nitrofurantoin Allergy unknown Verified 11/26/21 11:16 clavulanic acid AdvReac Severe Nausea Verified 11/26/21 11:16 [From Augmentin] amoxicillin [From Augmentin] AdvReac Intermediate Nausea Verified 11/26/21 11:16 [facility] Anesthesia Medical History Acquired hypothyroidism Acquired spondylolisthesis Acute respiratory distress Anginal equivalent Anxiety and depression CAD (coronary artery disease) Cardiac stent x1 Chronic hypertension Diabetes mellitus, type II HbA1c 4.5 in August 03, 2020 Dyslipidemia End stage renal failure on dialysis Environmental and seasonal allergies Erectile dysfunction due to diseases classified elsewhere ESRD (end stage renal disease) HPTH (hyperparathyroidism) HTN (hypertension) Hypertensive emergency Malignant hypertension PAD (peripheral artery disease) With critical lower limb ischemia 06/2019 requiring intervention with CSI atherectomy of the SFA followed by [id number] balloon angioplasty, CSI atherectomy of the tibial peroneal trunk and left anterior tibial followed by balloon angioplasty, reconstruction of the arch of the foot which was completely occluded. Peripheral vascular disease Polyneuropathy Protrusion of thoracic intervertebral disc Pulmonary edema Syrinx of spinal cord Vitamin D deficiency Surgical History Amputated toe of left foot due to gangrene 06/27/2019, with subsequent removal of all toes left foot 08/2019 at [place], [place] History of heart artery stent History of repair of right rotator cuff History of toe surgery Left great toe debridement Peritoneal dialysis catheter in place removed 08/2019, due to be replaced 07/24/2020 Family History Brother Cancer Mother Cancer Father Heart disease Social History Smoking and tobacco status: never smoked Second hand smoke exposure: No Alcohol intake: never Caregiver/support person: No Lives independently: Yes Housing: House Marital status: Legally Highest education level completed: Some College, No Degree service: No Current occupational status: disabled Pets and animals: Yes History of recent travel: No Current gender identity: Male Data Anesthesia Cardiac Studies: Echocardiogram 07/23/20 Echocardiogram Ultrasound 07/22/20 Sestamibi Stress Test (Cardiology) 07/22
[2021-12-04] MEDS: sodium chloride 0.9% 1,000 ML 30 ML IV (08:45)
[2021-12-04 09:10] VITALS: BP 166/89; PULSE 93; RESP 18; TEMP 36.4; O2SAT 100
[2021-12-04 09:37] LABS: Glucose Point of Care 127 mg/dL (70-110)
--- NOTE | 2021-12-04 10:14 | W.PM.OPSUD ---
Surgery/Procedure H&P Update DATE OF PROCEDURE: December 04, 2021 DATE H&P PERFORMED: 11/26/21 CHANGES TO PREVIOUS DOCUMENTATION: none PREOP DIAGNOSIS: Gangrene right second toe PLANNED PROCEDURE: Operation Date: 12/04/21 07:50 Proposed Procedures p Right second toe amputation [id number],E11.621,L97.509(Right) - Rolando Carmen DPM
--- NOTE | 2021-12-04 10:25 | ANES.PREANE2 ---
Pre-Anesthetic Assessment Height/Weight: Height 1.75 m Weight 88.904 kg Temp Pulse Resp BP Pulse Ox O2 Del Method 97.5 F L 93 18 166/89 100 12/04/21 09:10 12/04/21 09:10 12/04/21 09:10 12/04/21 09:10 12/04/21 09:10 12/04/21 09:10 Preop Diagnosis: Gangrene right second toe Operation Date: 12/04/21 07:50 Proposed Procedures p Right second toe amputation 82721,E11.621,L97.509(Right) - Rolando Carmen DPM Familial anesthetic complications: none Was Beta Fern taken within 24 hours: Yes Was Clonidine taken within 24 hours: N/A Last intake: Intake Last Liquid Date 12/03/21 Last Liquid Time 22:00 Last Solid Date 12/03/21 Last Solid Time 22:00 Social No alcohol and No tobacco Exam alert, oriented x 3, clear to auscultation bilaterally and regular rate & rhythm Airway Submandibular: within normal limits Cervical ROM: within normal limits Mallampati: Class II Dentition: false CV/HEM Coronary Artery Disease, Hypertension and Peripheral Vascular Disease Chronic Renal Failure peritoneal dialysis GI Gastroesophageal Reflux Disease Metabolic Diabetes Mellitus, Hyperlipidemia and Thyroid Disease Anesthetic Plan ASA status: 3 Anesthesia: MAC Medications/Allergies Home Medications Medication Instructions Recorded Confirmed Last Taken Type hydrocodone 10 mg-acetaminophen 1 tab PO Q4H PRN Pain 03/01/19 12/04/21 12/04/21 05:00 History 325 mg tablet glucometer #1 ea 07/28/19 11/26/21 Unknown Rx glucometer strips #100 ea 07/28/19 11/26/21 Unknown Rx sennosides 8.6 mg-docusate sodium 1 tab PO BID #60 tabs 07/28/19 12/04/21 12/03/21 Rx 50 mg tablet Diabetic shoes with inserts and #1 ea 12/12/19 11/26/21 Unknown Rx toe filler aspirin 81 mg tablet,delayed 81 mg PO DAILY #30 tabs 07/23/20 12/04/21 12/03/21 Rx release diabetic shoes and inserts #1 ea 11/05/20 11/26/21 Unknown Rx pen needle, diabetic 31 gauge x #100 ea 03/05/21 11/26/21 Unknown Rx 3/16 (Comfort EZ Pen [place]) atorvastatin 20 mg tablet 20 mg PO DAILY #30 tabs 04/01/21 12/04/21 12/04/21 05:00 Rx Diabetic shoes with inserts #1 ea 05/22/21 11/26/21 Unknown Rx insulin detemir U-100 100 unit/mL 20 unit (0.2 mL) SUBCUT DAILY #15 06/11/21 12/04/21 12/03/21 Rx (3 mL) subcutaneous pen mL short cam boot to the right #1 ea 08/21/21 11/26/21 Unknown Rx levothyroxine 125 mcg tablet See Rx Instructions .Route 09/29/21 12/04/21 12/03/21 05:00 Rx .COMPLEX #30 tabs calcium carbonate 200 mg calcium 200 mg PO TID 10/30/21 12/04/21 12/04/21 05:00 History (500 mg) chewable tablet carvedilol 6.25 mg tablet 6.25 mg PO BID 10/30/21 12/04/21 12/04/21 05:00 History nifedipine 20 mg capsule 60 mg PO TID 10/30/21 12/04/21 12/03/21 History doxycycline hyclate 100 mg tablet 100 mg PO Q12H 7 days #14 tabs 12/03/21 Unknown Rx Allergies Allergy/AdvReac Type Severity Reaction Status Date / Time nitrofurantoin Allergy unknown Verified 12/04/21 09:04 clavulanic acid AdvReac Severe Nausea Verified 12/04/21 09:04 [From Augmentin] amoxicillin [From Augmentin] AdvReac Intermediate Nausea Verified 12/04/21 09:04 [facility] Anesthesia Medical History Acquired hypothyroidism Acquired spondylolisthesis Acute respiratory distress Anginal equivalent Anxiety and depression CAD (coronary artery disease) Cardiac stent x1 Chronic hypertension Diabetes mellitus, type II HbA1c 4.5 in August 03, 2020 Dyslipidemia End stage renal failure on dialysis Environmental and seasonal allergies Erectile dysfunction due to diseases classified elsewhere ESRD (end stage renal disease) HPTH (hyperparathyroidism) HTN (hypertension) Hypertensive emergency Malignant hypertension PAD (peripheral artery disease) With critical lower limb ischemia 06/2019 requiring intervention with CSI atherectomy of the SFA followed by [id number] balloon angioplasty, CSI atherectomy of the tibial peroneal trunk and left anterior tibial followed by balloon angioplasty, reconstruction of the arch of the foot which was completely occluded. Peripheral vascular disease Polyneuropathy Protrusion of thoracic intervertebral disc Pulmonary edema Syrinx of spinal cord Vitamin D deficiency Surgical History Amputated toe of left foot due to gangrene 06/27/2019, with subsequent removal of all toes left foot 08/2019 at [place], [place] History of heart artery stent History of repair of right rotator cuff History of toe surgery Left great toe debridement Peritoneal dialysis catheter in place removed 08/2019, due to be replaced 07/24/2020 Family History Brother Cancer Mother Cancer Father Heart disease Social History Smoking and tobacco status: never smoked Second hand smoke exposure: No Alcohol intake: never Caregiver/support person: No Lives independently: Yes Housing: House Marital status: Legally Highest education level completed: Some College, No Degree service: No Current occupational status: disabled Pets and animals: Yes History of recent travel: No Current gender identity: Male Data Anesthesia Cardiac Studies: Echocardiogram 07/23/20 Echocardiogram Ultrasound 07/22/20 Sestamibi Stress Test (Cardiology) 07/22/20
--- NOTE | 2021-12-04 10:28 | PM.OP ---
Operative Report Date of procedure: December 04, 2021 Pre-op diagnosis: Preop Diagnosis Gangrene right second toe Post-op diagnosis: Same Post-op findings: Stable eschar to the distal lateral aspect of the right third toe. Procedure done: Right second toe amputation at metatarsophalangeal joint. CPT code 34592 Implants: 4-0 Vicryl, 4-0 nylon Specimens removed/disposition: None Pathology: Right second toe sent to pathology for permanent. Surgeon: Rolando Carmen D.P.M. Cigarette Package Examiner: Valeria Estimated blood loss: 5 12 IV fluids: None Urine output: None Complications: None Findings: Well demarcated dry gangrenous right second toe. Brief History: Patient presents for surgical consultation of right second toe amputation secondary to gangrene.? He is status post revascularization with improved pedal pulses.? Has well demarcated dry gangrenous changes to the distal right second toe.? Would like to proceed with outpatient amputation this 12/04/2021.? I reviewed at length with the patient, the risks, potential complications, benefits, alternatives, expectations, and typical outcomes associated with the surgery. The risks and potential complications were explained in detail, including but not limited to infection, wound dehiscence or soft tissue complications, bleeding and hematoma, chronic edema, neuritis or nerve damage producing numbness or chronic pain, CRPS, failure to relieve pain or worsening pain, thick / painful / unsightly scar, limited motion / stiffness, malposition, delayed union, malunion, or nonunion, fracture, reaction to implants, anesthetic complications, venous thromboembolism, and deformity recurrence.? I discussed the notion of no regrets with the patient as it pertains to complications and outcomes. The patient seemed to understand the nature of the proposed care and required convalescence. They asked appropriate questions, answered to their satisfaction. They are aware no guarantees can be made as to a satisfactory outcome and they understand there may be other possible unforeseen complications or outcomes not listed here that will be treated accordingly if they arise. There were no written or implied guarantees given to the patient. They gave informed consent to proceed. Procedure: Under mild sedation the patient was brought to the operating room and remained on the gurney in supine position. A timeout was performed. Anesthesia was then administered by the anesthesia service. Local anesthesia injected by myself consisting of 10 cc of 0.5% Marcaine plain and a right second ray block fashion. Well-padded pneumatic tourniquet applied to the right ankle. Right lower extremity was then scrubbed, prepped and draped utilizing normal aseptic technique. No Esmarch bandage utilized. Right foot was elevated and tourniquet inflated to 250 mmHg. Attention was directed to the right foot where a well demarcated dry stable gangrene involving the distal two thirds of the right second toe was appreciated. Utilizing a #15 blade and vertical semielliptical incisions encompassing the right second metatarsal phalangeal joint was performed full-thickness down to bone and the right second toe was disarticulated at the metatarsal phalangeal joint and passed from the operative field, this was sent to pathology for permanent. The incision was irrigated with copious amounts of sterile skin solution. Flexor and extensor tendons transected under traction and all bleeders were ligated and cauterized as necessary. Direct visualization of the surrounding soft tissue and second metatarsal head appeared to be viable. Bleeding edges of skin at the incision also appreciated. The incision was then approximated utilizing 4-0 Vicryl and 4-0 nylon. The incision was dressed with Adaptic, sterile 4 x 4, Kerlix and Abhishek wrap followed by application of postop shoe. Tourniquet was deflated and a prompt hyperemic response was noted to the right hallux, third, fourth and fifth toes. Patient tolerated the procedure and anesthesia well and was transferred to the PACU with vital signs stable and vascular status intact. Following a period of postop monitoring he will be discharged home is to heel touch only for transfers elevate right foot while resting and decrease his activities overall. Will follow-up in podiatry clinic next week and was given at home care instructions as well as follow-up instructions, was also provided my cell phone number to contact me directly with any postoperative questions or concerns.
[2021-12-04] MEDS: clindamycin 600 MG/50 ML PREMIX 100 MG IV (10:30)
[2021-12-04 11:00] VITALS: BP 95/60; PULSE 80; RESP 12; TEMP 36.4; O2SAT 98
[2021-12-04 11:06] VITALS: BP 104/60; PULSE 79; RESP 18; TEMP 37.1; O2SAT 98
[2021-12-04 11:17] VITALS: BP 129/84; PULSE 87; RESP 18; TEMP 36.4; O2SAT 100
[2021-12-04 11:27] VITALS: BP 134/81; PULSE 85; RESP 18; O2SAT 100
--- NOTE | 2021-12-04 13:28 | ANE.PACU2 ---
Inpatient post-anesthesia follow up: Airway intact: Yes Vital signs: Temperature 97.6 F Pulse Rate 85 Respiratory Rate 18 Blood Pressure 134/81 Pulse Oximetry 100 Oxygen Delivery Me thod Room Air Oxygen Flow Rate Fraction of Inspir ed Oxygen Hydration adequate: Yes Nausea and vomiting: No Pain level: 1 Mental status: Baseline
== END 2021-12-04 11:55 | disposition home or self-care (01) ==
PROVIDERS: PCP Nurse Practitioner Family; Visit Provider Podiatrist Foot & Ankle Surgery
PROC: (CPT 28820; principal; 2021-12-04 07:50)
DX: I96 Gangrene, not elsewhere classified (principal); S98.139A Complete traumatic amputation of one unspecified lesser toe, initial encounter; E11.621 Type 2 diabetes mellitus with foot ulcer; K21.9 Gastro-esophageal reflux disease without esophagitis; E78.5 Hyperlipidemia, unspecified; Z79.4 Long term (current) use of insulin; I25.10 Atherosclerotic heart disease of native coronary artery without angina pectoris; E11.22 Type 2 diabetes mellitus with diabetic chronic kidney disease; I12.0 Hypertensive chronic kidney disease with stage 5 chronic kidney disease or end stage renal disease; N18.6 End stage renal disease
CPT/HCPCS: 28820; 36416; 82962; 88305; 88311; J2250; J2704; J3010; J3490; J7030

== ENCOUNTER → 2021-12-18 13:12 | Outpatient (BNVA) | payer MEDICARE, MEDICAID, SELFPAY | PROVIDERS: PCP Nurse Practitioner Family; Visit Provider Podiatrist Foot & Ankle Surgery | DX: I73.9 Peripheral vascular disease, unspecified (principal); N18.6 End stage renal disease; Z99.2 Dependence on renal dialysis; E11.52 Type 2 diabetes mellitus with diabetic peripheral angiopathy with gangrene; Z89.421 Acquired absence of other right toe(s); Z79.4 Long term (current) use of insulin; E11.22 Type 2 diabetes mellitus with diabetic chronic kidney disease | CPT/HCPCS: 99213 ==

== ENCOUNTER → 2021-12-25 13:47 | Outpatient (BNVA) | payer MEDICARE, MEDICAID, SELFPAY | PROVIDERS: PCP Nurse Practitioner Family; Visit Provider Podiatrist Foot & Ankle Surgery | DX: E11.621 Type 2 diabetes mellitus with foot ulcer (principal); L97.512 Non-pressure chronic ulcer of other part of right foot with fat layer exposed; T87.81 Dehiscence of amputation stump; Y83.8 Other surgical procedures as the cause of abnormal reaction of the patient, or of later complication, without mention of misadventure at the time of the procedure; E11.22 Type 2 diabetes mellitus with diabetic chronic kidney disease; Z79.4 Long term (current) use of insulin; N18.6 End stage renal disease; Z99.2 Dependence on renal dialysis; I73.9 Peripheral vascular disease, unspecified; E11.52 Type 2 diabetes mellitus with diabetic peripheral angiopathy with gangrene | CPT/HCPCS: 99214 ==

== ENCOUNTER → 2022-01-04 08:32 | Outpatient (BNVA) | payer MEDICARE, MEDICAID, SELFPAY | PROVIDERS: PCP Nurse Practitioner Family; Visit Provider Podiatrist Foot & Ankle Surgery | DX: I73.9 Peripheral vascular disease, unspecified (principal); N18.6 End stage renal disease; Z99.2 Dependence on renal dialysis; E11.52 Type 2 diabetes mellitus with diabetic peripheral angiopathy with gangrene; T87.81 Dehiscence of amputation stump; L97.512 Non-pressure chronic ulcer of other part of right foot with fat layer exposed; Z89.421 Acquired absence of other right toe(s); E11.621 Type 2 diabetes mellitus with foot ulcer; Z79.4 Long term (current) use of insulin; Y83.8 Other surgical procedures as the cause of abnormal reaction of the patient, or of later complication, without mention of misadventure at the time of the procedure | CPT/HCPCS: 99213 ==

== ENCOUNTER → 2022-01-20 11:28 | Outpatient (BNVA) | payer MEDICARE, MEDICAID, SELFPAY | PROVIDERS: PCP Nurse Practitioner Family; Visit Provider Podiatrist Foot & Ankle Surgery | DX: E11.621 Type 2 diabetes mellitus with foot ulcer (principal); Z89.421 Acquired absence of other right toe(s); Y83.3 Surgical operation with formation of external stoma as the cause of abnormal reaction of the patient, or of later complication, without mention of misadventure at the time of the procedure; Z79.4 Long term (current) use of insulin; L97.512 Non-pressure chronic ulcer of other part of right foot with fat layer exposed; E11.52 Type 2 diabetes mellitus with diabetic peripheral angiopathy with gangrene; T87.81 Dehiscence of amputation stump; I73.9 Peripheral vascular disease, unspecified; Z99.2 Dependence on renal dialysis; N18.6 End stage renal disease | CPT/HCPCS: 11042 ==

== ENCOUNTER → 2022-02-03 10:25 | Outpatient (BNVA) | payer MEDICARE, MEDICAID, SELFPAY | PROVIDERS: PCP Nurse Practitioner Family; Visit Provider Podiatrist Foot & Ankle Surgery | DX: N18.6 End stage renal disease (principal); Z99.2 Dependence on renal dialysis; I73.9 Peripheral vascular disease, unspecified; E11.52 Type 2 diabetes mellitus with diabetic peripheral angiopathy with gangrene; T87.81 Dehiscence of amputation stump; L97.512 Non-pressure chronic ulcer of other part of right foot with fat layer exposed; Z89.421 Acquired absence of other right toe(s); E11.621 Type 2 diabetes mellitus with foot ulcer; Z79.4 Long term (current) use of insulin; Y83.8 Other surgical procedures as the cause of abnormal reaction of the patient, or of later complication, without mention of misadventure at the time of the procedure | CPT/HCPCS: 99214 ==

== ENCOUNTER → 2022-02-22 08:41 | Outpatient (BNVA) | payer MEDICARE, MEDICAID, SELFPAY | PROVIDERS: PCP Nurse Practitioner Family; Visit Provider Podiatrist Foot & Ankle Surgery | DX: E11.621 Type 2 diabetes mellitus with foot ulcer (principal); I73.9 Peripheral vascular disease, unspecified; E11.52 Type 2 diabetes mellitus with diabetic peripheral angiopathy with gangrene; L97.512 Non-pressure chronic ulcer of other part of right foot with fat layer exposed; T87.81 Dehiscence of amputation stump; Z99.2 Dependence on renal dialysis; N18.6 End stage renal disease; Z89.421 Acquired absence of other right toe(s); Y83.8 Other surgical procedures as the cause of abnormal reaction of the patient, or of later complication, without mention of misadventure at the time of the procedure; Z79.4 Long term (current) use of insulin | CPT/HCPCS: 99214 ==

== ENCOUNTER → 2022-03-12 12:49 | Outpatient (BNVA) | payer MEDICARE, MEDICAID, SELFPAY | PROVIDERS: PCP Nurse Practitioner Family; Visit Provider Podiatrist Foot & Ankle Surgery | DX: I73.9 Peripheral vascular disease, unspecified (principal); N18.6 End stage renal disease; Z99.2 Dependence on renal dialysis; E11.52 Type 2 diabetes mellitus with diabetic peripheral angiopathy with gangrene; T87.81 Dehiscence of amputation stump; Z89.421 Acquired absence of other right toe(s); E11.621 Type 2 diabetes mellitus with foot ulcer; Z79.4 Long term (current) use of insulin; L97.422 Non-pressure chronic ulcer of left heel and midfoot with fat layer exposed; Y83.8 Other surgical procedures as the cause of abnormal reaction of the patient, or of later complication, without mention of misadventure at the time of the procedure | CPT/HCPCS: 99214 ==

== ENCOUNTER → 2022-03-24 10:11 | Outpatient (BNVA) | payer MEDICARE, MEDICAID, SELFPAY | PROVIDERS: PCP Nurse Practitioner Family; Visit Provider Podiatrist Foot & Ankle Surgery | DX: E11.621 Type 2 diabetes mellitus with foot ulcer (principal); L97.422 Non-pressure chronic ulcer of left heel and midfoot with fat layer exposed; Y83.8 Other surgical procedures as the cause of abnormal reaction of the patient, or of later complication, without mention of misadventure at the time of the procedure; E11.22 Type 2 diabetes mellitus with diabetic chronic kidney disease; N18.6 End stage renal disease; Z99.2 Dependence on renal dialysis; I73.9 Peripheral vascular disease, unspecified; E11.52 Type 2 diabetes mellitus with diabetic peripheral angiopathy with gangrene; Z89.421 Acquired absence of other right toe(s); Z79.4 Long term (current) use of insulin; T87.81 Dehiscence of amputation stump | CPT/HCPCS: 73630; 99214 ==

== ENCOUNTER → 2022-04-07 07:39 | Outpatient (BNVA) | payer MEDICARE, MEDICAID, SELFPAY | PROVIDERS: PCP Nurse Practitioner Family; Visit Provider Podiatrist Foot & Ankle Surgery | DX: T87.81 Dehiscence of amputation stump (principal); Y83.3 Surgical operation with formation of external stoma as the cause of abnormal reaction of the patient, or of later complication, without mention of misadventure at the time of the procedure; E11.621 Type 2 diabetes mellitus with foot ulcer; L97.422 Non-pressure chronic ulcer of left heel and midfoot with fat layer exposed; E11.22 Type 2 diabetes mellitus with diabetic chronic kidney disease; N18.6 End stage renal disease; Z89.421 Acquired absence of other right toe(s); I73.9 Peripheral vascular disease, unspecified; Z79.4 Long term (current) use of insulin; Z99.2 Dependence on renal dialysis; E11.52 Type 2 diabetes mellitus with diabetic peripheral angiopathy with gangrene | CPT/HCPCS: 11042; 11045 ==

== ENCOUNTER → 2022-04-14 11:17 | Outpatient (BNVA) | payer MEDICARE, MEDICAID, SELFPAY | PROVIDERS: PCP Nurse Practitioner Family; Visit Provider Podiatrist Foot & Ankle Surgery | DX: E11.621 Type 2 diabetes mellitus with foot ulcer (principal); L97.422 Non-pressure chronic ulcer of left heel and midfoot with fat layer exposed; T87.81 Dehiscence of amputation stump; Z89.421 Acquired absence of other right toe(s); E11.22 Type 2 diabetes mellitus with diabetic chronic kidney disease; Z99.2 Dependence on renal dialysis; N18.6 End stage renal disease; Y83.8 Other surgical procedures as the cause of abnormal reaction of the patient, or of later complication, without mention of misadventure at the time of the procedure; Z79.4 Long term (current) use of insulin; I73.9 Peripheral vascular disease, unspecified; E11.52 Type 2 diabetes mellitus with diabetic peripheral angiopathy with gangrene | CPT/HCPCS: 99214 ==

== ENCOUNTER → 2022-05-05 11:22 | Outpatient (BNVA) | payer MEDICARE, MEDICAID, SELFPAY | PROVIDERS: PCP Nurse Practitioner Family; Visit Provider Podiatrist Foot & Ankle Surgery | DX: I73.9 Peripheral vascular disease, unspecified (principal); N18.6 End stage renal disease; Z99.2 Dependence on renal dialysis; E11.52 Type 2 diabetes mellitus with diabetic peripheral angiopathy with gangrene; T87.81 Dehiscence of amputation stump; L97.422 Non-pressure chronic ulcer of left heel and midfoot with fat layer exposed; Y83.8 Other surgical procedures as the cause of abnormal reaction of the patient, or of later complication, without mention of misadventure at the time of the procedure; E11.621 Type 2 diabetes mellitus with foot ulcer; E11.22 Type 2 diabetes mellitus with diabetic chronic kidney disease; Z89.421 Acquired absence of other right toe(s); Z79.4 Long term (current) use of insulin | CPT/HCPCS: 11042 ==

== ENCOUNTER → 2022-05-19 10:33 | Outpatient (BNVA) | payer MEDICARE, MEDICAID, SELFPAY | PROVIDERS: PCP Nurse Practitioner Family; Visit Provider Podiatrist Foot & Ankle Surgery | DX: I73.9 Peripheral vascular disease, unspecified (principal); N18.6 End stage renal disease; Z99.2 Dependence on renal dialysis; E11.52 Type 2 diabetes mellitus with diabetic peripheral angiopathy with gangrene; T87.81 Dehiscence of amputation stump; L97.422 Non-pressure chronic ulcer of left heel and midfoot with fat layer exposed; Z89.421 Acquired absence of other right toe(s); Y83.8 Other surgical procedures as the cause of abnormal reaction of the patient, or of later complication, without mention of misadventure at the time of the procedure; E11.621 Type 2 diabetes mellitus with foot ulcer; Z89.422 Acquired absence of other left toe(s) | CPT/HCPCS: 99214 ==

== ENCOUNTER → 2022-06-09 10:41 | Outpatient (BNVA) | payer MEDICARE, MEDICAID, SELFPAY | PROVIDERS: PCP Nurse Practitioner Family; Visit Provider Podiatrist Foot & Ankle Surgery | DX: I73.9 Peripheral vascular disease, unspecified (principal); N18.6 End stage renal disease; Z99.2 Dependence on renal dialysis; E11.52 Type 2 diabetes mellitus with diabetic peripheral angiopathy with gangrene; T87.81 Dehiscence of amputation stump; L97.422 Non-pressure chronic ulcer of left heel and midfoot with fat layer exposed; L97.512 Non-pressure chronic ulcer of other part of right foot with fat layer exposed; E11.621 Type 2 diabetes mellitus with foot ulcer; Y83.8 Other surgical procedures as the cause of abnormal reaction of the patient, or of later complication, without mention of misadventure at the time of the procedure; Z89.421 Acquired absence of other right toe(s); Z79.4 Long term (current) use of insulin | CPT/HCPCS: 11042 ==

== ENCOUNTER → 2022-06-23 13:37 | Outpatient (BNVA) | payer MEDICARE, MEDICAID, SELFPAY | PROVIDERS: PCP Nurse Practitioner Family; Visit Provider Podiatrist Foot & Ankle Surgery | DX: E11.621 Type 2 diabetes mellitus with foot ulcer (principal); L97.422 Non-pressure chronic ulcer of left heel and midfoot with fat layer exposed; L97.512 Non-pressure chronic ulcer of other part of right foot with fat layer exposed; T87.81 Dehiscence of amputation stump; E11.22 Type 2 diabetes mellitus with diabetic chronic kidney disease; Y83.8 Other surgical procedures as the cause of abnormal reaction of the patient, or of later complication, without mention of misadventure at the time of the procedure; Z89.421 Acquired absence of other right toe(s); Z79.4 Long term (current) use of insulin; I73.9 Peripheral vascular disease, unspecified; E11.52 Type 2 diabetes mellitus with diabetic peripheral angiopathy with gangrene; N18.6 End stage renal disease; Z99.2 Dependence on renal dialysis | CPT/HCPCS: 11042 ==

== ENCOUNTER → 2022-07-07 09:16 | Outpatient (BNVA) | payer MEDICARE, MEDICAID, SELFPAY | PROVIDERS: PCP Nurse Practitioner Family; Visit Provider Podiatrist Foot & Ankle Surgery | DX: I73.9 Peripheral vascular disease, unspecified (principal); Z51.89 Encounter for other specified aftercare; E11.621 Type 2 diabetes mellitus with foot ulcer; E11.22 Type 2 diabetes mellitus with diabetic chronic kidney disease; Z89.421 Acquired absence of other right toe(s); Z79.4 Long term (current) use of insulin; N18.6 End stage renal disease; Z99.2 Dependence on renal dialysis; E11.52 Type 2 diabetes mellitus with diabetic peripheral angiopathy with gangrene; L97.422 Non-pressure chronic ulcer of left heel and midfoot with fat layer exposed; Z89.432 Acquired absence of left foot | CPT/HCPCS: 99214 ==

== ENCOUNTER → 2022-08-04 12:54 | Outpatient (BNVA) | payer MEDICARE, MEDICAID, SELFPAY | PROVIDERS: PCP Nurse Practitioner Family; Visit Provider Podiatrist Foot & Ankle Surgery | DX: E11.22 Type 2 diabetes mellitus with diabetic chronic kidney disease (principal); N18.6 End stage renal disease; Z99.2 Dependence on renal dialysis; I73.9 Peripheral vascular disease, unspecified; E11.52 Type 2 diabetes mellitus with diabetic peripheral angiopathy with gangrene; Z89.421 Acquired absence of other right toe(s); E11.621 Type 2 diabetes mellitus with foot ulcer; L97.422 Non-pressure chronic ulcer of left heel and midfoot with fat layer exposed; Z89.432 Acquired absence of left foot; Z51.89 Encounter for other specified aftercare; Z79.4 Long term (current) use of insulin | CPT/HCPCS: 99214 ==

== ENCOUNTER 2022-08-25 08:44 | Outpatient (CLI) | payer MEDICARE, MEDICAID, SELFPAY ==
--- NOTE | 2022-08-25 09:02 | MR_ITS ---
WS: [id number] MRI LUMBAR SPINE NONCONTRAST TECHNIQUE: Sagittal T1, T2 and STIR imaging. Axial T1 and T2 imaging. CLINICAL INFORMATION: VERTEBROGENIC LOW BACK PAIN COMPARISON: CT 2019 and MRI 2017 FINDINGS: Mild lumbar curve. No acute compression. Slight retrolisthesis L5 on S1. Tiny annular fissure L5-S1. Mild disc bulging cervical spine churn driller imaging at C3-C6 worse at C5-C6 and C6-C7. Central protrusions at C5-C6 and C6-C7 with slight contact of the cervical cord. L1-L2: Mild facet arthropathy. Spinal canal and foramen are patent. L2-L3: No significant disc bulging. Mild facet arthropathy. Spinal canal and foramen are patent. L3-L4: Mild annular bulging. Mild facet arthropathy. Spinal canal and foramen are patent. L4-L5: Mild annular bulging with slight effacement of ventral thecal sac. LEFT foraminal protrusion w ith annular fissure impinges the exiting LEFT L4 nerve root. Mild to moderate LEFT foraminal narrowin g. Mild RIGHT foraminal narrowing. Mild facet arthropathy. L5-S1: Shallow LEFT pericentral protrusion. Impingement traversing LEFT S1 nerve root in the subartic ular recess. Mild facet arthropathy. Tiny annular fissure. Mild LEFT foraminal narrowing. Visualized pelvic bony structures: Normal. Paravertebral soft tissues: Normal. Masslike heterogeneous RIGHT renal lesion measuring 3.1 x 3.0 cm. This corresponds the prior enhancin g mass in the prior CTA 2021 suspicious for renal cell carcinoma. Atrophic kidneys bilaterally. Bilateral renal cysts. MR/MR lumbar spine wo con* [id number] IMPRESSION: 1. LEFT foraminal protrusion L4-L5 with annular fissure impinges the exiting L EFT L4 nerve root with mild to moderate LEFT foraminal narrowing. This is simil ar to the prior MRI in 2017. Correlation LEFT L4 nerve root symptoms. 2. Shallow LEFT pericentral protrusion L5-S1 impinges the LEFT S1 nerve root i n the subarticular recess. Annular fissure at this level. 3. Mild annular bulging L3-L4 with slight effacement of ventral thecal sac. 4. Masslike heterogeneous RIGHT renal lesion measuring 3.1 x 3.0 cm. This can esponds the prior enhancing mass on the prior CTA 2021 suspicious for renal joao l carcinoma. Recommend urology consultation if not previously performed
--- NOTE | 2022-08-25 09:02 | XR_ITS ---
WS: [id number] XR lumbar spine f/e only [id number] REASON FOR EXAM: VERTEBROGENIC LOW BACK PAIN FINDINGS: Examination is unchanged compared to 05/21/2019. Straightening of the normal lumbar lordosis. No significant vertebral body abnormality. Small osteophytosis L3-L5. Intervertebral disc spaces are intact and relatively well-preserved mild narrowing of the L5-S1 disc space. No spondylolysis. No significant spondylolisthesis listhesis. No significant vertebral body shift with flexion and exte nsion. Extensive vascular calcifications is relatively related to chronic renal failure. XR/XR lumbar spine f/e only [id number] IMPRESSION: Stable degenerative spondylosis as above.
--- NOTE | 2022-08-25 09:02 | XR_ITS ---
WS: [id number] XR hip BI 3-4V wo/w pel [id number] REASON FOR EXAM: PAIN IN LEFT HIP FINDINGS: RIGHT HIP: No fracture or focal bone lesion. Mild narrowing of the joint space with moderate subchondral sclerosis/cystic change and osteophytosis of the acetabulum. Mild osteophytosis of the femoral head. Extensive vascular calcification secondary to chronic renal failure. XR/XR hip BI 3-4V wo/w pel [id number] IMPRESSION: Mild osteoarthritis of the right hip. LEFT HIP: No fracture or focal bone lesion. Mild narrowing of the joint space with modera te subchondral sclerosis/cystic change and osteophytosis of the acetabulum. Mild osteophytosis of the femoral head. Extensive vascular calcification secondary to chronic renal failure. IMPRESSION: Mild osteoarthritis of the left hip.
== END 2022-08-25 08:45 | disposition home or self-care (01) ==
LOC: RAD 08:47
PROVIDERS: PCP Nurse Practitioner Family; Visit Provider Anesthesiology Pain Medicine
DX: M51.27 Other intervertebral disc displacement, lumbosacral region (principal); M48.061 Spinal stenosis, lumbar region without neurogenic claudication; M47.817 Spondylosis without myelopathy or radiculopathy, lumbosacral region; M16.0 Bilateral primary osteoarthritis of hip; M51.36 Other intervertebral disc degeneration, lumbar region; N28.9 Disorder of kidney and ureter, unspecified
CPT/HCPCS: 72120; 72148; 73522

== ENCOUNTER → 2022-09-01 12:15 | Outpatient (BNVA) | payer MEDICARE, MEDICAID, SELFPAY | PROVIDERS: PCP Nurse Practitioner Family; Visit Provider Podiatrist Foot & Ankle Surgery | DX: I73.9 Peripheral vascular disease, unspecified (principal); N18.6 End stage renal disease; Z99.2 Dependence on renal dialysis; E11.52 Type 2 diabetes mellitus with diabetic peripheral angiopathy with gangrene; Z89.432 Acquired absence of left foot; E11.22 Type 2 diabetes mellitus with diabetic chronic kidney disease; Z89.421 Acquired absence of other right toe(s); E11.621 Type 2 diabetes mellitus with foot ulcer; L97.529 Non-pressure chronic ulcer of other part of left foot with unspecified severity | CPT/HCPCS: 99214 ==

== ENCOUNTER → 2022-10-06 12:01 | Outpatient (BNVA) | payer MEDICARE, MEDICAID, SELFPAY | PROVIDERS: PCP Nurse Practitioner Family; Visit Provider Podiatrist Foot & Ankle Surgery | DX: N18.6 End stage renal disease (principal); Z99.2 Dependence on renal dialysis; I73.9 Peripheral vascular disease, unspecified; E11.52 Type 2 diabetes mellitus with diabetic peripheral angiopathy with gangrene; Z89.432 Acquired absence of left foot; L97.422 Non-pressure chronic ulcer of left heel and midfoot with fat layer exposed; E11.22 Type 2 diabetes mellitus with diabetic chronic kidney disease; Z89.421 Acquired absence of other right toe(s); Z79.4 Long term (current) use of insulin; E11.621 Type 2 diabetes mellitus with foot ulcer | CPT/HCPCS: 11042 ==

== ENCOUNTER → 2022-10-27 12:28 | Outpatient (BNVA) | payer MEDICARE, MEDICAID, SELFPAY | PROVIDERS: PCP Nurse Practitioner Family; Visit Provider Podiatrist Foot & Ankle Surgery | DX: Z51.89 Encounter for other specified aftercare (principal); I73.9 Peripheral vascular disease, unspecified; E11.52 Type 2 diabetes mellitus with diabetic peripheral angiopathy with gangrene; Z89.432 Acquired absence of left foot; L97.422 Non-pressure chronic ulcer of left heel and midfoot with fat layer exposed; E11.621 Type 2 diabetes mellitus with foot ulcer; Z89.421 Acquired absence of other right toe(s); Z79.4 Long term (current) use of insulin | CPT/HCPCS: 99213 ==

== ENCOUNTER → 2023-03-28 11:56 | Outpatient (BNVA) | payer MEDICARE, MEDICAID, SELFPAY | PROVIDERS: PCP Nurse Practitioner Family; Visit Provider Nurse Practitioner Family | DX: E78.5 Hyperlipidemia, unspecified (principal) | CPT/HCPCS: 84443 ==

== ENCOUNTER 2023-12-19 15:15 | Inpatient (IN) | payer MEDICARE, MEDICAID, SELFPAY ==
[2023-12-19] VITALS (15 sets, daily range): BP systolic 118–201; BP diastolic 70–131; PULSE 66–103; RESP 16–18; TEMP 36.6–36.7; O2SAT 93–99
--- NOTE | 2023-12-19 15:18 | XR_ITS ---
WS: [id number] XR chest 1V portable [id number] REASON FOR EXAM: cp FINDINGS: Right internal jugular dialysis catheter. The tip approximates the right atrium. Overall the chest appears unchanged compared to the most recent previous examination of 08/02/2020, th e central pulmonary veins are prominent and there are reticular and linear interstitial lung opacitie s bilaterally. The lung day appear much more clear on other previous examinations. The heart is not significantly enlarged. XR/XR chest 1V portable [id number] IMPRESSION: Possible pulmonary edema.
--- NOTE | 2023-12-19 15:19 | ECG_ITS ---
e-channel Test Date: 2023-12-19 Pat Name: Christiano Kearns Department: Room: Gender: Male [employer] Event Associate: : 1965 Requested By: Adela Black Order Number: [id number] Zach MD: Jessica Torrez M.D. Measurements Intervals Sledge Rate: 102 P: -3 NV: 166 QRS: -5 QRSD: 111 T: 130 QT: 349 QTc: 455 Interpretive Statements SINUS TACHYCARDIA with borderline First degree AV block SEPTAL MYOCARDIAL INFARCTION , OF INDETERMINATE AGE [40+ ms Q WAVE IN V1/V2] MODERATE T-WAVE ABNORMALITY, CONSIDER LATERAL ISCHEMIA [-0.1+ mV T-WAVE IN I/aVL/V5/V6] INTERPRETATION BASED ON A DEFAULT AGE OF 40 YEARS Compared to ECG 08/02/2020 06:47:26 T-wave abnormality now present Possible ischemia now present Sinus rhythm no longer present First degree AV block no longer present Myocardial infarct finding still present Electronically Signed On 12-22-2023 21:57:53 [employer] by Jessica Torrez M.D. [email or web address]
--- NOTE | 2023-12-19 15:26 | ED_ITS ---
HPI - Chest Pain 2 General: Chief Complaint: Chest Pain Stated Complaint: stemi alert Time Seen by Provider: 12/19/23 15:17 Source: patient and EMS Mode of arrival: EMS Limitations: no limitations History of Present Illness: 58-year-old male with extensive medical issues including coronary disease diabetic end-stage renal disease on dialysis last received dialysis on Tuesday states he started having chest pain at 10 AM today states has been a pressure type pain in the center of his chest EMS was called from [facility] STEMI was alerted from their EKG they have given him aspirin nitro he states his pain is much improved currently a 1 out of 10 I did review their EKG along with her EKG with financial services manager Dr. Ambriz STEMI was called off as EKG did not meet STEMI criteria he denies any cough fever dyspnea at this time Associated symptoms: Deny abdominal pain, dyspnea, fever(s), nausea or vomiting Related Data Home Medications Medication Instructions Recorded Confirmed hydrocodone 10 mg-acetaminophen 1 tab PO Q4H PRN Pain 03/01/19 12/19/23 325 mg tablet calcium carbonate 200 mg PO TID 10/30/21 12/19/23 furosemide 40 mg tablet 40 mg PO DAILY 12/07/21 12/19/23 aspirin 81 mg tablet,delayed 81 mg PO DAILY HEART HEALTH 12/19/23 12/19/23 release levothyroxine 125 mcg tablet 125 mcg PO DAILY 12/19/23 12/19/23 Previous Rx's Medication Instructions Recorded glucometer #1 ea 07/28/19 glucometer strips #100 ea 07/28/19 sennosides 8.6 mg-docusate sodium 1 tab PO BID #60 tabs 07/28/19 50 mg tablet diabetic shoes and inserts #1 ea 11/05/20 pen needle, diabetic 31 gauge x #100 ea 03/05/21/ (Comfort EZ Pen [place]) Diabetic shoes with inserts #1 ea 05/22/21 short cam boot to the right #1 ea 08/21/21 acetaminophen 500 mg tablet 1,000 mg (2 x 500 mg) PO BID fever 02/26/22 (Tylenol Extra Strength) 7 days #28 tabs foam bandage 4 X 4 (Optifoam) #100 ea 03/26/22 PolymemAG (with silver) and Mcgrann #1 ea 04/01/22 SAP OWLS boot #1 ea 09/01/22 Hydrafera Blue READY Antibacterial #1 ea 10/27/22 Foam Dressing and Mcgrann SAP atorvastatin 20 mg tablet 20 mg PO DAILY #30 tabs 09/30/23 carvedilol 12.5 mg tablet 12.5 mg PO BID #60 tabs 09/30/23 clopidogrel 75 mg tablet 75 mg PO DAILY #30 tabs 09/30/23 insulin degludec 100 unit/mL (3 15 unit (0.15 mL) SUBCUT DAILY #15 09/30/23 mL) subcutaneous pen (Tresiba mL FlexTouch U-100 insulin) lisinopril 10 mg tablet 10 mg PO DAILY #30 tabs 09/30/23 nifedipine 60 mg tablet,extended 60 mg PO DAILY #30 tabs 09/30/23 release pantoprazole 40 mg tablet,delayed 40 mg PO DAILY #30 tabs 09/30/23 release tadalafil 10 mg tablet (Cialis) 10 mg PO DAILY PRN sexual activity 11/28/23 #10 tabs Diabetic shoes with inserts and #1 ea 12/02/23 toe filler Allergies Allergy/AdvReac Type Severity Reaction Status Date / Time nitrofurantoin Allergy unknown Verified 12/19/23 15:03 clavulanic acid AdvReac Severe Nausea Verified 12/19/23 15:03 [From Augmentin] amoxicillin [From Augmentin] AdvReac Intermediate Nausea Verified 12/19/23 15:03 Review of Systems 2 Const: Denies: fever(s), chills, body aches or change in appetite ENMT: Denies: throat pain or dental pain Card: Reports: chest pain Resp: Denies: dyspnea GI: Denies: abdominal pain, nausea, vomiting or diarrhea Musc: Denies: neck pain or back pain Skin/Breast: Denies: rash Neuro: Denies: headache(s) PFSH ED 2 PFSH: Medical History Anginal equivalent ESRD (end stage renal disease) Pulmonary edema Acute respiratory distress Hypertensive emergency HTN (hypertension) Syrinx of spinal cord Protrusion of thoracic intervertebral disc Diabetes mellitus, type II CAD (coronary artery disease) Cardiac stent x1 Malignant hypertension Peripheral vascular disease Polyneuropathy Acquired spondylolisthesis HPTH (hyperparathyroidism) Vitamin D deficiency Chronic hypertension PAD (peripheral artery disease) With critical lower limb ischemia 06/2019 requiring intervention with CSI atherectomy of the SFA followed by [id number] balloon angioplasty, CSI atherectomy of the tibial peroneal trunk and left anterior tibial followed by balloon angioplasty, reconstruction of the arch of the foot which was completely occluded. End stage renal failure on dialysis Acquired hypothyroidism Environmental and seasonal allergies Anxiety and depression Erectile dysfunction due to diseases classified elsewhere Dyslipidemia Surgical History Peritoneal dialysis catheter in place removed 08/2019, due to be replaced 07/24/2020 Amputated toe of left foot due to gangrene 06/27/2019, with subsequent removal of all toes left foot 08/2019 at [place], [place] History of repair of right rotator cuff History of toe surgery Left great toe debridement History of heart artery stent Family History Brother Cancer Mother Cancer Father Heart disease Social History Smoking and tobacco/nicotine status: tobacco/nicotine user, details unknown Second hand smoke exposure: No Alcohol intake: never Substance/Drug Use: never Caregiver/support person: No Lives independently: Yes Housing: House Marital status: Legally Highest education level completed: Some College, No Degree service: No Current occupational status: disabled Pets and animals: Yes Do you think of yourself as: Straight/Heterosexual Current gender identity: Male Physical Exam 2 Const: COMMON NORMALS: patient oriented x3 HENMT: COMMON NORMALS: normocephalic and atraumatic HEAD & SCALP: n ormocephalic and atraumatic Eye: COMMON NORMALS: conjunctivae normal CONJUNCTIVA: Yes conjunctivae normal Neck/C-Spine: COMMON NORMALS: full ROM and supple Chest: COMMONS NORMALS: normal inspection of the chest Resp: COMMON NORMALS: normal respiratory effort, No retractions, No use of accessory muscles and clear to auscultation bilaterally AUSCULTATION: clear to auscultation bilaterally Cardio: COMMON NORMALS: regular rate, regular rhythm and No murmurs present (Cardio) RATE: regular rate RHYTHM: regular rhythm GI: COMMON NORMALS: Normal to inspection, nondistended, normoactive bowel sounds present, Soft to palpation, non-tender and no masses PALPATION: Yes Soft to palpation Extremity: COMMON NORMALS: normal to inspection and full ROM Neuro: COMMON NORMALS: patient oriented x3, moves all extremities and no focal motor deficits Psych: COMMON NORMALS: mental status grossly normal, Normal thought process present and cooperative THOUGHT PROCESS: Normal thought process present Skin: COMMON NORMALS: no rashes or lesions noted and no wounds GENERAL SKIN EXAM: no rashes or lesions noted Course 2 Vital Signs: Vital signs: Vital Signs Temperature 98.1 F 12/19/23 15:15 Pulse Rate 87 12/19/23 18:26 Respiratory Rate 16 12/19/23 15:15 Blood Pressure 175/75 12/19/23 18:26 Pulse Oximetry 97 12/19/23 18:26 Oxygen Delivery Me thod Nasal Cannula 12/19/23 16:29 Oxygen Flow Rate 2 12/19/23 16:29 MDM - Chest Pain Medical Decision Making Patient presents here with chest pain along with shortness of breath he is requiring oxygen here CT shows pleural effusions likely congestive heart failure he also has elevated troponin consistent NSTEMI I spoke to the hospitalist will admit to the ICU at this time Medical Records I reviewed the patient's medical records. Lab Data I reviewed the patient's lab results. 12/19/23 15:26 12/19/23 15:26 Radiology Impressions Chest X-Ray 12/19/23 15:18 IMPRESSION: Possible pulmonary edema. Chest CTA 12/19/23 16:13 IMPRESSION: 1. Congestive heart failure with pleural effusions 2. Stable mediastinal and hilar adenopathy Laboratory Results WBC 20.22 10^3/uL (3.29-11.43) H 12/19/23 15: RBC 3.61 10^6/uL (3.85-5.65) L 12/19/23 15:26 Hgb 11.00 g/dL (11.27-16.99) L 12/19/23 15: Hct 33.5 % (37-53) L 12/19/23 15:26 MCV 92.8 fl (82-101) 12/19/23 15:26 MCH 30.5 pg (27-33) 12/19/23 15: MCHC 32.8 g/dL (30-55) 12/19/23 15: RDW 12.7 % (12.1-15.1) 12/19/23 15:26 Plt Count 317 10^3/cmm (157-399) 12/19/23 15: MPV 10.4 fL (7.4-10.4) 12/19/23 15:26 Neut % (Auto) 86.5 % 12/19/23 15:26 Lymph % (Auto) 5.0 % 12/19/23 15:26 [place] % (Auto) 4.4 % 12/19/23 15:26 Eos % (Auto) 2.3 % 12/19/23 15:26 Baso % (Auto) 1.1 % 12/19/23 15: Neut # (Auto) 17.49 10^3/uL (1.8-7.7) H 12/19/23 15: Lymph # (Auto) 1.0 10^3/uL (0.8-4.8) 12/19/23 15: [place] # (Auto) 0.9 10^3/uL (0.2-0.9) 12/19/23 15:26 Eos # (Auto) 0.5 10^3/uL (0.0-0.8) 12/19/23 15:26 Baso # (Auto) 0.2 10^3/uL (0.0-0.1) H 12/19/23 15:26 Nucleated RBC % (auto) 0 % 12/19/23 15: Nucleated RBCs # 0.0 /100WBC 12/19/23 15: PT 14.20 SECONDS (12.1-14.9) 12/19/23 15: INR 1.07 (0.8-1.2) 12/19/23 15:26 Sodium 133 mmol/L (136-145) L 12/19/23 15:26 Potassium 4.9 mmol/L (3.5-5.1) 12/19/23 15:26 Chloride 96 mmol/L (98-107) L 12/19/23 15:26 Carbon Dioxide 19 mmol/L (22-29) L 12/19/23 15:26 Anion Gap 22.9 (5-19) H 12/19/23 15:26 BUN 42 mg/dL (6-20) H 12/19/23 15:26 Creatinine 9.8 mg/dL (0.7-1.2) H* 12/19/23 15:26 GFR Calculation 5.5 mL/min (90-130) L 12/19/23 15:26 Glucose 153 mg/dL (65-115) H 12/19/23 15:26 Calculated Osmolality 290 mOsm/kg (285-295) 12/19/23 15:26 Lactic Acid 1.3 mmol/L (0.5-2.2) 12/19/23 17:37 Calcium 8.2 mg/dL (8.5-10.5) L 12/19/23 15:26 Total Bilirubin 0.3 mg/dL (0.15-1.2) 12/19/23 15:26 AST 13 U/L (0-40) 12/19/23 15:26 ALT 13 U/L (0-41) 12/19/23 15:26 Alkaline Phosphatase 154 U/L (40-130) H 12/19/23 15:26 Troponin T Baseline 155 ng/L (0-15) H* 12/19/23 15:26 Troponin T 120 Minute 168.5 ng/L (0-15) H 12/19/23 17:28 Delta Troponin T 13.5 ABS# (0-10) H* 12/19/23 17:28 NT-Pro-B Natriuret Pep 33194 pg/mL (0-125) H 12/19/23 15:26 Total Protein 6.5 g/dL (6.6-8.7) L 12/19/23 15:26 Albumin 4.0 g/dL (3.5-5.2) 12/19/23 15:26 Globulin 2.5 g/dL (1.3-4.6) 12/19/23 15:26 Lipase 11 U/L (13-60) L 12/19/23 15:26 All radiology interpretation(s) finalized by discharge EKG Data EKG 1: I personally reviewed and interpreted this EKG as follows: EKG interpretation date: 12/19/23 EKG interpretation time: 15:20 Interpretation: sinus tach hr [address] elevation qrs 111 qtc 408 Discharge Plan Discharge Patient Disposition: Admitted As Inpatient Clinical Impression: End stage renal failure on dialysis, NSTEMI (non-ST elevated myocardial infarction), CHF exacerbation, Acute hypoxic respiratory failure Condition: Stable Prescriptions: No Action (DME) diabetic shoes and inserts See Rx Instructions .Route .MEDSUPPLY Qty: 1 0RF Rx Instructions: As directed (DME) pen needle, diabetic [Comfort EZ Pen [place]] 31 gauge x 3/16 needle See Rx Instructions .Route Qty: 100 3RF Rx Instructions: As directed hydrocodone-acetaminophen 10-325 mg tablet 1 tab PO Q4H PRN (Reason: Pain) (DME) OWLS boot See Rx Instructions .Route .MEDSUPPLY Qty: 1 0RF Rx Instructions: As directed (DME) Hydrafera Blue READY Antibacterial Foam Dressing and Mcgrann SAP See Rx Instructions .Route .MEDSUPPLY Qty: 1 0RF Rx Instructions: As directed HOME- Patient needs Hydrafera blue foam and Mcgrann SAP dressing to the Left Heel Wound Daily for 30 days for 3 months (DME) Diabetic shoes with inserts and toe filler See Rx Instructions .Route .MEDSUPPLY Qty: 1 0RF Rx Instructions: As directed (DME) Diabetic shoes with inserts See Rx Instructions .Route .MEDSUPPLY Qty: 1 0RF Rx Instructions: As directed (DME) short cam boot to the right See Rx Instructions .Route .MEDSUPPLY Qty: 1 0RF Rx Instructions: As directed furosemide 40 mg tablet 40 mg PO DAILY atorvastatin 20 mg tablet 20 mg PO DAILY Qty: 30 5RF nifedipine 60 mg tablet extended release 60 mg PO DAILY Qty: 30 5RF insulin degludec [Tresiba FlexTouch U-100] 100 unit/mL (3 mL) insulin pen 15 unit SUBCUT DAILY Qty: 15 5RF lisinopril 10 mg tablet 10 mg PO DAILY Qty: 30 5RF carvedilol 12.5 mg tablet 12.5 mg PO BID Qty: 60 5RF Rx Instructions: must administer with a meal/food clopidogrel 75 mg tablet 75 mg PO DAILY Qty: 30 5RF pantoprazole 40 mg tablet,delayed release (DR/EC) 40 mg PO DAILY Qty: 30 5RF tadalafil [Cialis] 10 mg tablet 10 mg PO DAILY PRN (Reason: sexual activity) Qty: 10 5RF Rx Instructions: administer approximately 30min before sexual activity acetaminophen [Tylenol Extra Strength] 500 mg tablet 1,000 mg PO BID 7 Days Qty: 28 1RF (DME) Optifoam 4 X 4 bandage See Rx Instructions .Route Qty: 100 2RF Rx Instructions: Apply a Dressing to Left Foot Wounds Twice a Day (DME) PolymemAG (with silver) and Mcgrann SAP See Rx Instructions .Route .MEDSUPPLY Qty: 1 0RF Rx Instructions: As directed HOME sennosides-docusate sodium 8.6-50 mg Tablet 1 tab PO BID Qty: 60 0RF (DME) glucometer See Rx Instructions .Route .MEDSUPPLY Qty: 1 0RF Rx Instructions: As directed (DME) glucometer strips See Rx Instructions .Route .MEDSUPPLY Qty: 100 0RF Rx Instructions: As directed calcium carbonate 200 mg calcium (500 mg) Tablet,Chewable 200 mg PO TID aspirin 81 mg tablet,delayed release (DR/EC) 81 mg PO DAILY levothyroxine 125 mcg tablet 125 mcg PO DAILY Rx Instructions: TAKE ONE TABLET BY MOUTH DAILY Referrals: Freda Summers FNP-C [Primary Care Provider] - Coding Level of Care Code ED Art Supervisor for Milindg Mellisa
[2023-12-19] MEDS: labetalol 5 mg/mL SDV 20mL 10 MG IVP (15:36)
[2023-12-19 15:42] LABS: Basophils # 0.2 10^3/uL (0.0-0.1); Basophils % 1.1 %; Eosinophils # 0.5 10^3/uL (0.0-0.8); Eosinophils % 2.3 %; Hematocrit 33.5 % (37-53); Mean Corpuscular HGB Conc 32.8 g/dL (30-55); Mean Corpuscular Hemoglobin 30.5 pg (27-33); Mean Corpuscular Volume 92.8 fl (82-101); Mean Platelet Volume 10.4 fL (7.4-10.4); Monocytes # 0.9 10^3/uL (0.2-0.9); Monocytes % 4.4 %; Neutrophils # 17.49 10^3/uL (1.8-7.7); Neutrophils % 86.5 %; Nucleated Red Blood Cells % 0 %; Platelet Count 317 10^3/cmm (157-399); Red Blood Count 3.61 10^6/uL (3.85-5.65); Red Cell Distribution Width 12.7 % (12.1-15.1); White Blood Count 20.22 10^3/uL (3.29-11.43)
[2023-12-19 15:58] LABS: INR 1.07 (0.8-1.2)
[2023-12-19 16:10] LABS: Troponin(5th) Baseline 155 ng/L (0-15)
--- NOTE | 2023-12-19 16:13 | CTR_ITS ---
PROCEDURE INFORMATION: Exam: CTA Chest With Contrast Exam date and time: 12/19/2023 6:06 PM Age: 58 years old Clinical indication: Shortness of breath; Additional info: SOB TECHNIQUE: Imaging protocol: Computed tomographic angiography of the chest with contrast. Exam focused on the arteries. 3D rendering (Not supervised by radiologist): MIP and/or 3D reconstructed images were created by the technologist. Radiation optimization: All CT scans at this facility use at least one of these dose optimization techniques: automated exposure control; mA and/or kV adjustment per patient size (includes targeted exams where dose is matched to clinical indication); or iterative reconstruction. Contrast material: OMNI 350; Contrast volume: 100 ml; Contrast route: INTRAVENOUS (IV); COMPARISON: CT chest wo con [id number] 08/02/2020 10:18 AM RADIATION DOSE METRICS: Total DLP (mGy-cm): 491.14 FINDINGS: Tubes, catheters and devices: A left-sided central line has its tip in good position within the SVC. Pulmonary arteries: Normal. No pulmonary emboli. Aorta: Unremarkable. No aortic aneurysm. No aortic dissection. Lungs: Patchy pulmonary edema can be seen throughout both lungs. Pleural spaces: Large bilateral pleural effusions are noted. Heart: Mild cardiomegaly is noted. Lymph nodes: Mildly prominent lymph nodes are noted throughout the mediastinum and both vanda. Bones/joints: Unremarkable. No acute fracture. Soft tissues: Unremarkable. CT/CT angio chest PE protcl [id number] IMPRESSION: 1. Congestive heart failure with pleural effusions 2. Stable mediastinal and hilar adenopathy
[2023-12-19 16:18] LABS: Alanine Aminotransferase 13 U/L (0-41); Alkaline Phosphatase 154 U/L (40-130); Aspartate Amino Transferase 13 U/L (0-40); Blood Urea Nitrogen 42 mg/dL (6-20); Calcium 8.2 mg/dL (8.5-10.5); Carbon Dioxide 19 mmol/L (22-29); Chloride 96 mmol/L (98-107); Creatinine Clr Calc Pharmacy 9.5785; Globulin 2.5 g/dL (1.3-4.6); Glomerular Filtration Rate 5.5 mL/min (90-130); Glucose 153 mg/dL (65-115); Lipase 11 U/L (13-60); Osmolality Calculated 290 mOsm/kg (285-295); Sodium 133 mmol/L (136-145); Total Bilirubin 0.3 mg/dL (0.15-1.2); Total Protein 6.5 g/dL (6.6-8.7)
[2023-12-19 16:23] LABS: Anion Gap 22.9 (5-19); Potassium 4.9 mmol/L (3.5-5.1)
[2023-12-19 16:39] LABS: NT Pro B Type Natriuretic Pept 60891 pg/mL (0-125)
[2023-12-19] MEDS: hyDRALAzine 20 mg/mL INJ 1 mL 10 MG IVP (16:47)
[2023-12-19] MEDS: iohexol 350 mg/mL 500 mL Btl (per mL) IV (17:22)
--- NOTE | 2023-12-19 17:32 | ECG_ITS ---
[facility] Test Date: 2023-12-19 Pat Name: Christiano Kearns Department: Room: Gender: Male Csr Technician: : 1965 Requested By: Adela Black Order Number: [id number] Zach MD: DONELL FRENCH Measurements Intervals [place] Rate: 86 P: 35 ME: 199 QRS: -9 QRSD: 111 T: 80 QT: 387 QTc: 465 Interpretive Statements SINUS RHYTHM WITH FREQUENT VENTRICULAR PREMATURE COMPLEXES MODERATE INTRAVENTRICULAR CONDUCTION DELAY [105+ ms QRS DURATION, 80+ ms Q/S IN V1/V2, NO Q AND 60+ ms R IN I/aVL/V5/V6] ST DEVIATION AND MODERATE T-WAVE ABNORMALITY, CONSIDER LATERAL ISCHEMIA [-0.1+ mV T-WAVE IN I/aVL/V5/V6] Compared to ECG 12/19/2023 15:20:06 Ventricular premature complex(es) now present Intraventricular conduction delay now present Sinus tachycardia no longer present Myocardial infarct finding no longer present T-wave abnormality still present Possible ischemia still present Electronically Signed On 12-23-2023 00:41:45 ELECTRICAL ENGINEERING TECHNOLOGIST by DONELL FRENCH [email or web address]
[2023-12-19 18:18] LABS: Troponin 5 2HR Delta 13.5 ABS# (0-10)
[2023-12-19 18:19] LABS: Troponin 5 2HR 168.5 ng/L (0-15)
--- NOTE | 2023-12-19 18:46 | P.HP_ITS ---
Providers/Chief Complaint 2 Primary Care Provider: ENRIQUE Ramirez Chief Complaint: stemi alert History of Present Illness Christiano Kearns is a 58 year old male with a past medical history of CAD, end- stage renal disease on dialysis, type 2 diabetes mellitus, hypertension, per lipidemia, hypothyroidism, who presents to [facility] for shortness of breath. Currently patient is alert oriented x 3, following all commands, blood pressure 190/100, currently on 2 L, complaint of shortness of breath, does have tachypnea, no tachycardia, does have diffuse crackles in all lung day. His dialysis days are Tuesday and Saturdays, he does reports chest pain on Tuesday, this morning he reported a pressure-like pain in his chest, nonradiating, associate with shortness of breath, he does report progressive shortness of breath no lower extreme edema does report a nonproductive cough, fatigue, malaise, no fevers, chills. Patient was a STEMI alert from [facility], on arrival, EKG reviewed with social work manager, STEMI was called off, currently denies any active chest pain does report shortness of breath -Spoke to nephrology, plan on dialysis tonight -Spoke to ER provider Review of Systems 2 Const: Reports: fatigue and malaise; Denies: fever(s) Card: Reports: chest pain Resp: Reports: dyspnea GI: Denies: abdominal pain : Denies: flank pain Musc: Denies: neck pain Neuro: Denies: headache(s) Medications/Allergies Home Medications Medication Instructions Recorded Confirmed Last Taken Type hydrocodone 10 mg-acetaminophen 1 tab PO Q4H PRN Pain 03/01/19 12/19/23 12/18/23 History 325 mg tablet glucometer #1 ea 07/28/19 12/19/23 Unknown Rx glucometer strips #100 ea 07/28/19 12/19/23 Unknown Rx sennosides 8.6 mg-docusate sodium 1 tab PO BID #60 tabs 07/28/19 12/19/23 12/03/21 Rx 50 mg tablet diabetic shoes and inserts #1 ea 11/05/20 12/19/23 Unknown Rx pen needle, diabetic 31 gauge x #100 ea 03/05/21 12/19/23 Unknown Rx 3/16 (Comfort EZ Pen [place]) Diabetic shoes with inserts #1 ea 05/22/21 12/19/23 Unknown Rx short cam boot to the right #1 ea 08/21/21 12/19/23 Unknown Rx calcium carbonate 200 mg PO TID 10/30/21 12/19/23 12/19/23 History furosemide 40 mg tablet 40 mg PO DAILY 12/07/21 12/19/23 12/19/23 History acetaminophen 500 mg tablet 1,000 mg (2 x 500 mg) PO BID fever 02/26/22 12/19/23 Unknown Rx (Tylenol Extra Strength) 7 days #28 tabs foam bandage 4 X 4 (Optifoam) #100 ea 03/26/22 12/19/23 Unknown Rx PolymemAG (with silver) and [place] #1 ea 04/01/22 12/19/23 Unknown Rx SAP OWLS boot #1 ea 09/01/22 12/19/23 Unknown Rx Hydrafera Blue READY Antibacterial #1 ea 10/27/22 12/19/23 Unknown Rx Foam Dressing and [place] SAP atorvastatin 20 mg tablet 20 mg PO DAILY #30 tabs 09/30/23 12/19/23 12/19/23 Rx carvedilol 12.5 mg tablet 12.5 mg PO BID #60 tabs 09/30/23 12/19/23 12/19/23 Rx clopidogrel 75 mg tablet 75 mg PO DAILY #30 tabs 09/30/23 12/19/23 12/19/23 Rx insulin degludec 100 unit/mL (3 15 unit (0.15 mL) SUBCUT DAILY #15 09/30/23 12/19/23 12/19/23 Rx mL) subcutaneous pen (Tresiba mL FlexTouch U-100 insulin) lisinopril 10 mg tablet 10 mg PO DAILY #30 tabs 09/30/23 12/19/23 Unknown Rx nifedipine 60 mg tablet,extended 60 mg PO DAILY #30 tabs 09/30/23 12/19/23 12/19/23 Rx release pantoprazole 40 mg tablet,delayed 40 mg PO DAILY #30 tabs 09/30/23 12/19/23 Unknown Rx release tadalafil 10 mg tablet (Cialis) 10 mg PO DAILY PRN sexual activity 11/28/23 12/19/23 Unknown Rx #10 tabs Diabetic shoes with inserts and #1 ea 12/02/23 12/19/23 Unknown Rx toe filler aspirin 81 mg tablet,delayed 81 mg PO DAILY HEART HEALTH 12/19/23 12/19/23 12/19/23 History release levothyroxine 125 mcg tablet 125 mcg PO DAILY 12/19/23 12/19/23 12/19/23 History Allergies Allergy/AdvReac Type Severity Reaction Status Date / Time nitrofurantoin Allergy unknown Verified 12/19/23 15:03 clavulanic acid AdvReac Severe Nausea Verified 12/19/23 15:03 [From Augmentin] amoxicillin [From Augmentin] AdvReac Intermediate Nausea Verified 12/19/23 15:03 PFSH Acute 2 PFSH: Medical History Anginal equivalent ESRD (end stage renal disease) Pulmonary edema Acute respiratory distress Hypertensive emergency HTN (hypertension) Syrinx of spinal cord Protrusion of thoracic intervertebral disc Diabetes mellitus, type II CAD (coronary artery disease) Cardiac stent x1 Malignant hypertension Peripheral vascular disease Polyneuropathy Acquired spondylolisthesis HPTH (hyperparathyroidism) Vitamin D deficiency Chronic hypertension PAD (peripheral artery disease) With critical lower limb ischemia 06/2019 requiring intervention with CSI atherectomy of the SFA followed by [id number] balloon angioplasty, CSI atherectomy of the tibial peroneal trunk and left anterior tibial followed by balloon angioplasty, reconstruction of the arch of the foot which was completely occluded. End stage renal failure on dialysis Acquired hypothyroidism Environmental and seasonal allergies Anxiety and depression Erectile dysfunction due to diseases classified elsewhere Dyslipidemia Surgical History Peritoneal dialysis catheter in place removed 08/2019, due to be replaced 07/24/2020 Amputated toe of left foot due to gangrene 06/27/2019, with subsequent removal of all toes left foot 08/2019 at [place], [place] History of repair of right rotator cuff History of toe surgery Left great toe debridement History of heart artery stent Family History Brother Cancer Mother Cancer Father Heart disease Social History Smoking and tobacco/nicotine status: tobacco/nicotine user, details unknown Second hand smoke exposure: No Alcohol intake: never Substance/Drug Use: never Caregiver/support person: No Lives independently: Yes Housing: House Marital status: Legally Highest education level completed: Some College, No Degree service: No Current occupational status: disabled Pets and animals: Yes Do you think of yourself as: Straight/Heterosexual Current gender identity: Male Vitals/I&O/Wt Last Vital Signs Temp 98.1 F 12/19/23 15:15 Pulse 87 12/19/23 18:26 Resp 16 12/19/23 15:15 BP 175/75 12/19/23 18:26 Pulse Ox 97 12/19/23 18:26 O2 Del Method Nasal Cannula 12/19/23 16:29 O2 Flow Rate 2 12/19/23 16:29 Weight last 48 hrs Weight 97.522 kg Physical Exam 2 Const: COMMON NORMALS: no acute distress and patient oriented x3 HENMT: COMMON NORMALS: normocephalic HEAD & SCALP: normocephalic Eye: COMMON NORMALS: Equal, round and reactive pupils present Neck/C-Spine: COMMON NORMALS: no JVD Lymph: LYMPHATIC: no lymphadenopathy noted Resp: COMMON NORMALS: normal respiratory effort, No retractions and No use of accessory muscles AUSCULTATION: crackles Cardio: COMMON NORMALS: no JVD, regular rate, regular rhythm, S1 normal heart sound present and S2 normal heart sound present RATE: regular rate RHYTHM: regular rhythm HEART SOUNDS: S1 normal heart sound present and S2 normal heart sound present GI: COMMON NORMALS: Normal to inspection, nondistended, normoactive bowel sounds present, Soft to palpation and non-tender Extremity: COMMON NORMALS: no calf tenderness and no pedal edema Neuro: COMMON NORMALS: patient oriented x3, CN's II-XII intact bilaterally, moves all extremities and no focal motor deficits Psych: COMMON NORMALS: mental status grossly normal Data 12/19/23 15:26 12/19/23 15:26 Micro: Microbiology 12/19/23 17:33 Blood Culture - Preliminary Blood SPECIMEN COLLECTED 12/19/23 17:28 Blood Culture - Preliminary Blood SPECIMEN COLLECTED A&P Assessment and plan (1) HTN (hypertension): Qualifiers: Hypertension type: essential hypertension Qualified Code(s): I10 - Essential (primary) hypertension (2) CAD (coronary artery disease): Qualifiers: Coronary Disease-Associated Artery/Lesion type: [place] artery [place] vs. transplanted heart: [place] heart Associated angina: without angina Qualified Code(s): I25.10 - Atherosclerotic heart disease of [place] coronary artery without angina pectoris (3) PAD (peripheral artery disease): (4) Dyslipidemia: (5) Diabetes mellitus, type II: Qualifiers: Diabetes mellitus predatory animal exterminator insulin use: without usp use Diabetes mellitus complication status: with circulatory complication Diabetes mellitus complication detail: with peripheral angiopathy with gangrene Qualified Code(s): E11.52 - Type 2 diabetes mellitus with diabetic peripheral angiopathy with gangrene (6) GERD (gastroesophageal reflux disease): (7) End stage renal failure on dialysis: (8) Acute hypoxic respiratory failure: (9) CHF exacerbation: (10) Chest pain: Qualifiers: Chest pain type: unspecified Qualified Code(s): R07.9 - Chest pain, unspecified (11) NSTEMI (non-ST elevated myocardial infarction): (12) Pneumonia: Plan Acute hypoxic respiratory failure ? Likely secondary to systolic CHF exacerbation, CT chest showing bilateral pleural effusions, BNP over 60,000 ? Concerns for bilateral pleural effusions -Has concerns for left lower lobe pneumonia, given leukocytosis complains of cough ? Plan ? Monitor in ICU ? Will consider BiPAP based on clinical progress ? Spoke to nephrology plan on dialysis tonight ? Start Rocephin ? Start azithromycin # Pro-Jovan, CRP ? Blood cultures ? Monitor respiratory status closely Chest pain, NSTEMI ? Initial troponin 155, 120-minute 168.5 ? EKG T wave inversions in anterior leads, ? Plan ? Continue aspirin, statin, Plavix ? Heparin drip ? Cardiac echo ? Monitor for chest pain # Patient has not used Cialis in the last 24 hours Type 2 diabetes mellitus, low-dose sliding scale End-stage renal disease on dialysis Hypothyroidism continue levothyroxine Peripheral arterial disease, no complaints of lower extremity pain Full code ? Heparin drip for DVT prophylaxis, ? Protonix for GI prophylaxis Attestations 2 Medical Necessity Statement*: Patient requires hospitalization, inpatient, greater than 2 midnights, for acute hypoxic respiratory failure, multifactorial, CHF, NSTEMI, pneumonia, fluid overload, bilateral pleural effusions, chest pain Diagnoses Essential hypertension I10 Hypertension type: essential hypertension Coronary artery disease involving [place] coronary artery of [place] heart without angina pectoris I25.10 Coronary Disease-Associated Artery/Lesion type: [place] artery [place] vs. transplanted heart: [place] heart Associated angina: without angina PAD (peripheral artery disease) I73.9 Dyslipidemia E78.5 Type 2 diabetes mellitus with diabetic peripheral angiopathy and gangrene, without long-term current use of insulin E11.52 Diabetes mellitus usp insulin use: without predatory animal exterminator use Diabetes mellitus complication status: with circulatory complication Diabetes mellitus complication detail: with peripheral angiopathy with gangrene GERD (gastroesophageal reflux disease) K21.9 End stage renal failure on dialysis N18.6; Z99.2 Acute hypoxic respiratory failure J96.01 CHF exacerbation I50.9 Chest pain R07.9 Chest pain type: unspecified NSTEMI (non-ST elevated myocardial infarction) I21.4 Pneumonia J18.9
--- NOTE | 2023-12-19 19:03 | P.CONIM_ITS ---
Providers/Reason For Consult 2 Consulting Physician/Specialty*: Ti Orantes MD/telemetry nephrology Reason for Consult*: ESRD care Requesting Physician: Dr Heena Dubois Primary Care Provider: ENRIQUE Ramirez History of Present Illness History of Present Illness Christiano Kearns is a 58 year old male history of ESRD on dialysis Tuesday and Tuesday, CAD, type 2 diabetes, hypertension, hyperlipidemia, hypothyroidism, obesity. The patient presented with shortness of breath and hypertension patient was seen by cardiology for concern of an ST elevation [place] cardiology did not feel that he was having an acute [place] cardiology felt his symptoms was due to hypertension and volume overload. Renal was called for extra dialysis. Review of Systems 2 Narrative: Weak shortness of breath dyspnea on exertion edema, neuropathy Medications/Allergies Home Medications Medication Instructions Recorded Confirmed Last Taken Type hydrocodone 10 mg-acetaminophen 1 tab PO Q4H PRN Pain 03/01/19 12/19/23 12/18/23 History 325 mg tablet glucometer #1 ea 07/28/19 12/19/23 Unknown Rx glucometer strips #100 ea 07/28/19 12/19/23 Unknown Rx sennosides 8.6 mg-docusate sodium 1 tab PO BID #60 tabs 07/28/19 12/19/23 12/03/21 Rx 50 mg tablet diabetic shoes and inserts #1 ea 11/05/20 12/19/23 Unknown Rx pen needle, diabetic 31 gauge x #100 ea 03/05/21 12/19/23 Unknown Rx 3/16 (Comfort EZ Pen [place]) Diabetic shoes with inserts #1 ea 05/22/21 12/19/23 Unknown Rx short cam boot to the right #1 ea 08/21/21 12/19/23 Unknown Rx calcium carbonate 200 mg PO TID 10/30/21 12/19/23 12/19/23 History furosemide 40 mg tablet 40 mg PO DAILY 12/07/21 12/19/23 12/19/23 History acetaminophen 500 mg tablet 1,000 mg (2 x 500 mg) PO BID fever 02/26/22 12/19/23 Unknown Rx (Tylenol Extra Strength) 7 days #28 tabs foam bandage 4 X 4 (Optifoam) #100 ea 03/26/22 12/19/23 Unknown Rx PolymemAG (with silver) and [place] #1 ea 04/01/22 12/19/23 Unknown Rx SAP OWLS boot #1 ea 09/01/22 12/19/23 Unknown Rx Hydrafera Blue READY Antibacterial #1 ea 10/27/22 12/19/23 Unknown Rx Foam Dressing and [place] SAP atorvastatin 20 mg tablet 20 mg PO DAILY #30 tabs 09/30/23 12/19/23 12/19/23 Rx carvedilol 12.5 mg tablet 12.5 mg PO BID #60 tabs 09/30/23 12/19/23 12/19/23 Rx clopidogrel 75 mg tablet 75 mg PO DAILY #30 tabs 09/30/23 12/19/23 12/19/23 Rx insulin degludec 100 unit/mL (3 15 unit (0.15 mL) SUBCUT DAILY #15 09/30/23 12/19/23 12/19/23 Rx mL) subcutaneous pen (Tresiba mL FlexTouch U-100 insulin) lisinopril 10 mg tablet 10 mg PO DAILY #30 tabs 09/30/23 12/19/23 Unknown Rx nifedipine 60 mg tablet,extended 60 mg PO DAILY #30 tabs 09/30/23 12/19/23 12/19/23 Rx release pantoprazole 40 mg tablet,delayed 40 mg PO DAILY #30 tabs 09/30/23 12/19/23 Unknown Rx release tadalafil 10 mg tablet (Cialis) 10 mg PO DAILY PRN sexual activity 11/28/23 12/19/23 Unknown Rx #10 tabs Diabetic shoes with inserts and #1 ea 12/02/23 12/19/23 Unknown Rx toe filler aspirin 81 mg tablet,delayed 81 mg PO DAILY HEART HEALTH 12/19/23 12/19/23 12/19/23 History release levothyroxine 125 mcg tablet 125 mcg PO DAILY 12/19/23 12/19/23 12/19/23 History Allergies Allergy/AdvReac Type Severity Reaction Status Date / Time nitrofurantoin Allergy unknown Verified 12/19/23 15:03 clavulanic acid AdvReac Severe Nausea Verified 12/19/23 15:03 [From Augmentin] amoxicillin [From Augmentin] AdvReac Intermediate Nausea Verified 12/19/23 15:03 PFSH Acute 2 PFSH: Medical History Anginal equivalent ESRD (end stage renal disease) Pulmonary edema Acute respiratory distress Hypertensive emergency HTN (hypertension) Syrinx of spinal cord Protrusion of thoracic intervertebral disc Diabetes mellitus, type II CAD (coronary artery disease) Cardiac stent x1 Malignant hypertension Peripheral vascular disease Polyneuropathy Acquired spondylolisthesis HPTH (hyperparathyroidism) Vitamin D deficiency Chronic hypertension PAD (peripheral artery disease) With critical lower limb ischemia 06/2019 requiring intervention with CSI atherectomy of the SFA followed by [id number] balloon angioplasty, CSI atherectomy of the tibial peroneal trunk and left anterior tibial followed by balloon angioplasty, reconstruction of the arch of the foot which was completely occluded. End stage renal failure on dialysis Acquired hypothyroidism Environmental and seasonal allergies Anxiety and depression Erectile dysfunction due to diseases classified elsewhere Dyslipidemia Surgical History Peritoneal dialysis catheter in place removed 08/2019, due to be replaced 07/24/2020 Amputated toe of left foot due to gangrene 06/27/2019, with subsequent removal of all toes left foot 08/2019 at [place], [place] History of repair of right rotator cuff History of toe surgery Left great toe debridement History of heart artery stent Family History Brother Cancer Mother Cancer Father Heart disease Social History Smoking and tobacco/nicotine status: tobacco/nicotine user, details unknown Second hand smoke exposure: No Alcohol intake: never Substance/Drug Use: never Caregiver/support person: No Lives independently: Yes Housing: House Marital status: Legally Highest education level completed: Some College, No Degree service: No Current occupational status: disabled Pets and animals: Yes Do you think of yourself as: Straight/Heterosexual Current gender identity: Male Vitals/I&O/Wt Last Vital Signs Temp 98.1 F 12/19/23 15:15 Pulse 87 12/19/23 18:26 Resp 16 12/19/23 15:15 BP 175/75 12/19/23 18:26 Pulse Ox 97 12/19/23 18:26 O2 Del Method Nasal Cannula 12/19/23 16:29 O2 Flow Rate 2 11/04/24 16:29 Weight last 48 hrs Weight 97.522 kg Physical Exam 2 Narrative: Obese man in bed using nasal cannula oxygen. Vital signs noted. HEENT normocephalic atraumatic. Neck is supple. Lungs dull bases. Heart regular. Abdomen is soft positive bowel sounds. Extremities bilateral edema poor pulses. Anterior chest wall permacath. Neuro awake alert oriented x 3 Data 12/19/23 15:26 12/19/23 15:26 Micro: Microbiology 12/19/23 17:33 Blood Culture - Preliminary Blood SPECIMEN COLLECTED 12/19/23 17:28 Blood Culture - Preliminary Blood SPECIMEN COLLECTED A&P Assessment and plan (1) End stage renal failure on dialysis: 58-year-old gentleman ESRD CAD peripheral arterial disease status post TMA diabetes obesity. Patient here with hypertension volume overload and pleural effusions on imaging. 1. Patient was seen by cardiology who did not feel that he is having an ST elevation [place]. Though troponin is elevated at 1 55-1 68 delta troponin only mildly elevated at 13.5. Check echo. 2. ESRD with BNP of 60,000 and hypertension volume overload pleural effusions and shortness of breath. Will perform dialysis this evening. 3. Monitor blood pressure with dialysis. 4. Bilateral pleural effusions with dialysis. The patient was seen and examined using audiovisual equipment with the aid of a nurse. The patient consents to telehealth and to hemodialysis. Case discussed in detail with the patient his nurse and with Dr. Dubois. Plan See above. Consult Attestations 2 Medical Necessity Statement: Volume overload, ESRD, CAD, peripheral arterial disease status post TMA patient here with shortness of breath. Time Spent in Patient Care: Greater than 35 minutes (>than 50% of time spent in counselling and/or direct pt care on unit) . Coding Level of Care Code Acute Code for Chg Fwd Diagnoses End stage renal failure on dialysis N18.6; Z99.2
[2023-12-19 19:14] LABS: Lactic Sepsis W/Reflex 1.3 mmol/L (0.5-2.2)
[2023-12-19] MEDS: cefTRIAXone 1,000 mg SDV 1000 MG IVP (19:14)
[2023-12-19] MEDS: carvedilol 12.5 mg Tablet PO (19:16)
[2023-12-19 19:24] LABS: C Reactive Protein 13.5 mg/L (0.0-4.9); Chol HDL Ratio 4.38 mg/dL (1.0-5.00); Cholesterol 127 mg/dL (0-200); HDL Cholesterol 29 mg/dL (60-100); LDL Cholesterol Calculated 76 mg/dL (50-129); LDL HDL Ratio 2.62 RATIO (0.00-3.22); Thyroid Stimulating Hormone 2.86 uIU/mL (0.27-4.20); Triglycerides 109 mg/dL (0-150)
[2023-12-19] MEDS: pantoprazole 40 mg SDV IVP (19:29)
[2023-12-19] MEDS: heparin 5,000 unit/mL INJ 1 mL IVP (19:43)
[2023-12-19] MEDS: heparin drip 25,000 UNIT/500 ML PREMIX 27 UNIT IV (19:53)
[2023-12-19 21:33] LABS: Procalcitonin 0.19 ng/mL (0-0.5)
[2023-12-19 21:59] LABS: Glucose Point of Care 130 mg/dL (70-110)
[2023-12-19 22:18] LABS: Estmated Average Glucose 94; Hemoglobin A1C 4.9 % (4.0-6.0)
--- NOTE | 2023-12-19 22:23 | ECG_ITS ---
[employer] Test Date: 2023-12-19 Pat Name: Christiano Kearns Department: Room: ICU10 Gender: Male Inletter: : 1965 Requested By: Adela Black Order Number: [id number] Reading MD: DONELL FRENCH Measurements Intervals [place] Rate: 87 P: 25 MS: 200 QRS: -3 QRSD: 112 T: 121 QT: 410 QTc: 496 Interpretive Statements SINUS RHYTHM WITH FREQUENT VENTRICULAR PREMATURE COMPLEXES POSSIBLE ANTERIOR MYOCARDIAL INFARCTION , OF INDETERMINATE AGE [30 ms Q WAVE IN V3/V4, OR R < 0.2 mV IN V4] MODERATE T-WAVE ABNORMALITY, CONSIDER LATERAL ISCHEMIA [-0.1+ mV T-WAVE IN I/aVL/V5/V6] Compared to ECG 12/19/2023 17:32:35 Myocardial infarct finding now present Intraventricular conduction delay no longer present T-wave abnormality still present Possible ischemia still present Electronically Signed On 12-23-2023 00:40:41 BAR ASSISTANT by DONELL FRENCH [email or web address]
[2023-12-19 22:41] LABS: Uric Acid 5.4 mg/dL (3.4-7.0)
[2023-12-19] MEDS: albumin 25 G/100 ML BAG 60 G IV (22:55)
[2023-12-19 22:56] LABS: Troponin 5 6HR 195.2 ng/L (0-15); Troponin 5 6HR Delta 40.2 ng/L (0-12)
[2023-12-19] MEDS: heparin, porcine 1,000 unit/mL INJ 10 mL 1000 UNIT IV (22:56)
[2023-12-19 23:12] LABS: Covid PCR NEGATIVE (Negative); Influenza A NEGATIVE (Negative); Influenza B NEGATIVE (Negative); Respiratory Syncytial Virus Ce NEGATIVE (Negative)
[2023-12-20] VITALS (246 sets, daily range): BP systolic 54–183; BP diastolic 27–107; PULSE 57–101; RESP 14–24; TEMP 36.6–36.8; O2SAT 91–100
[2023-12-20 00:08] LABS: Hepatitis B Surface AB < 3.5 (11.5-1000); Hepatitis B Surface Antigen Non-Reactive (Nonreactive); Hepatitis C Virus Antibody Non-Reactive (Nonreactive)
[2023-12-20] MEDS: AZITHROMYCIN ADD-Vantage 500 MG in 0.9% NaCl ADD-Vantage 250 ML 250 MG IV ×2 (00:10→21:08)
[2023-12-20] MEDS: atorvastatin 40 mg Tablet PO ×2 (01:49→21:09)
[2023-12-20] MEDS: acetaminophen 325 mg Tablet 650 MG PO ×3 (01:53→22:44)
[2023-12-20 02:41] LABS: Basophils # 0.1 10^3/uL (0.0-0.1); Eosinophils # 0.2 10^3/uL (0.0-0.8); Eosinophils % 1.9 %; Hematocrit 28.1 % (37-53); Lymphocytes # 1.1 10^3/uL (0.8-4.8); Lymphocytes % 9.7 %; Mean Corpuscular HGB Conc 32.7 g/dL (30-55); Mean Corpuscular Hemoglobin 30.3 pg (27-33); Mean Corpuscular Volume 92.4 fl (82-101); Mean Platelet Volume 10.6 fL (7.4-10.4); Monocytes # 0.8 10^3/uL (0.2-0.9); Monocytes % 6.7 %; Neutrophils # 9.41 10^3/uL (1.8-7.7); Neutrophils % 80.3 %; Nucleated Red Blood Cells % 0 %; Platelet Count 251 10^3/cmm (157-399); Red Blood Count 3.04 10^6/uL (3.85-5.65); Red Cell Distribution Width 12.8 % (12.1-15.1); White Blood Count 11.72 10^3/uL (3.29-11.43)
[2023-12-20 03:03] LABS: Alanine Aminotransferase 13 U/L (0-41); Albumin Level 4.1 g/dL (3.5-5.2); Alkaline Phosphatase 114 U/L (40-130); Anion Gap 16.4 (5-19); Aspartate Amino Transferase 11 U/L (0-40); Blood Urea Nitrogen 23 mg/dL (6-20); Calcium 8.8 mg/dL (8.5-10.5); Carbon Dioxide 27 mmol/L (22-29); Chloride 98 mmol/L (98-107); Creatinine Clr Calc Pharmacy 14.1163; Globulin 2.2 g/dL (1.3-4.6); Glomerular Filtration Rate 8.7 mL/min (90-130); Glucose 163 mg/dL (65-115); Magnesium 1.8 mg/dL (1.7-2.3); Osmolality Calculated 291 mOsm/kg (285-295); Phosphorus 3.3 mg/dL (2.5-4.5); Potassium 4.4 mmol/L (3.5-5.1); Sodium 137 mmol/L (136-145); Total Bilirubin 0.4 mg/dL (0.15-1.2); Total Protein 6.3 g/dL (6.6-8.7)
[2023-12-20 03:14] LABS: Partial Thromboplastin Time 225.3 SECONDS (23.9-36.7)
[2023-12-20 03:23] LABS: 25 Hydroxy Vitamin D 13 ng/mL (30-100); Iron 54 ug/dL (59-158); Percent Saturation 39.1 % (20-50); Total Iron Binding Capacity 138 mcg/dl; Unsaturated Iron Binding 84 ug/dL (112-347)
[2023-12-20 03:45] LABS: Ferritin 1764 ng/mL (30-400); NT Pro B Type Natriuretic Pept > 70000 pg/mL (0-125)
[2023-12-20 03:50] LABS: Calcium 8.6 mg/dL (8.5-10.5); Parathyroid Hormone 399.1 pg/mL (15-65)
[2023-12-20] MEDS: levothyroxine 125 mcg Tablet PO (06:30)
[2023-12-20 08:11] LABS: Glucose Point of Care 101 mg/dL (70-110)
[2023-12-20] MEDS: aspirin 81 mg EC Tablet PO (08:40)
[2023-12-20] MEDS: clopidogrel 75 mg Tablet PO (08:40)
[2023-12-20] MEDS: carvedilol 12.5 mg Tablet PO ×2 (08:40→17:35)
--- NOTE | 2023-12-20 09:43 | P.PN_ITS ---
Subjective 2 Subjective: still sob. weak. no n/v/f/c/beltrán/d. dec cp Medications: Reviewed: Yes Medication Review Details: Current Medications Acetaminophen (Acetaminophen 325 Mg Tablet) 650 mg PO Q6H PRN PRN Reason: Mild/Mod Pain Or Temp >/= 101 Last Admin: 12/20/23 01:53 Dose: 650 mg Albuterol/Ipratropium (Ipratropium-Albuterol 3 Ml Neb) 3 ml INHALATION Q6H PRN PRN Reason: SHORTNESS OF BREATH Aspirin (Aspirin 81 Mg Ec Tablet) 81 mg PO DAILY THEA Last Admin: 12/20/23 08:40 Dose: 81 mg Atorvastatin Calcium (Atorvastatin 40 Mg Tablet) 40 mg PO BEDTIME THEA Last Admin: 12/20/23 01:49 Dose: 40 mg Carvedilol (Carvedilol 12.5 Mg Tablet) 12.5 mg PO BID THEA Last Admin: 12/20/23 08:40 Dose: 12.5 mg Ceftriaxone Sodium (Ceftriaxone 1,000 Mg Sdv) 1,000 mg IVP Q24H THEA; Protocol Last Admin: 12/19/23 19:14 Dose: 1,000 mg Clopidogrel Bisulfate (Clopidogrel 75 Mg Tablet) 75 mg PO DAILY THEA Last Admin: 12/20/23 08:40 Dose: 75 mg Glucagon (Glucagon 1 Mg/Ml Kit 1 Ml) 1 mg IM ONCE PRN; Protocol PRN Reason: Adult Acute Hypoglycemia Nursing Prot. Heparin Sodium (Porcine) (Heparin 5,000 Unit/Ml Inj 1 Ml) 0 unit IVP PRN PRN; Protocol PRN Reason: Heparin Weight Based Protocol -Subsequent Bolus Azithromycin 500 mg/ Sodium (Chloride) 250 mls @ 250 mls/hr IV Q24H THEA; Protocol Last Infusion: 12/20/23 03:22 Dose: Infused Dextrose (D5w) 500 mls @ 0 mls/hr IV ONCE PRN; Protocol PRN Reason: Adult Acute Hypoglycemia Prot Dextrose (D10w) 125 mls @ 750 mls/hr IV PRN PRN; Protocol PRN Reason: Adult Acute Hypoglycemia Nursing Protocol Dextrose (D10w) 250 mls @ 1,000 mls/hr IV PRN PRN; Protocol PRN Reason: Adult Acute Hypoglycemia Nursing Protocol Heparin Sodium/Sodium Chloride (Heparin Drip) 25,000 unit in 500 mls @ 0 mls/hr IV CONT THEA; Protocol Last Titration: 12/20/23 08:37 Dose: 13.84 unit/kg/hr, 27 mls/hr Insulin Human Lispro (Insulin Lispro 100 Unit/1 Ml) 0 unit SUBCUT WM&BEDTIME [facility]; Protocol Last Admin: 12/20/23 08:17 Dose: Not Given Levothyroxine Sodium (Levothyroxine 125 Mcg Tablet) 125 mcg PO QAM TEHA Last Admin: 12/20/23 06:30 Dose: 125 mcg Morphine Sulfate (Morphine 4 Mg/Ml Sdv 1 Ml) 2 mg IVP Q4H PRN PRN Reason: SEVERE PAIN Ondansetron HCl (Ondansetron 2 Mg/Ml Sdv 2 Ml) 4 mg IVP Q8H PRN PRN Reason: vomiting, or N/V if npo Pantoprazole Sodium (Pantoprazole 40 Mg Sdv) 40 mg IVP Q24H [facility] Last Admin: 12/19/23 19:29 Dose: 40 mg Vitals/I&O/Wt Last Vital Signs Temp 97.9 F 12/20/23 01:38 Pulse 96 12/20/23 09:00 Resp 23 H 12/20/23 06:40 BP 161/69 12/20/23 08:30 Pulse Ox 96 12/20/23 09:00 O2 Del Method Nasal Cannula 12/19/23 21:50 O2 Flow Rate 3 12/19/23 18:45 FiO2 21 12/19/23 21:37 12/19/23 12/20/23 12/20/23 22:59 06:59 14:59 Intake Total 480 / 480 1152.05 / 1632.05 460 / 460 Output Total 2001 Balance 480 / 480 -849.95 / -369.95 460 / 460 Weight last 48 hrs Weight 98 kg Weight 96 kg Weight 97.5 kg Weight 97.522 kg Physical Exam 2 Narrative: comfortable in bed using nasal cannula oxygen. Vital signs noted. HEENT normocephalic atraumatic. Neck is supple. Lungs dull bases b/l. Heart regular. Abdomen is soft positive bowel sounds. Extremities bilateral 1+ edema poor pulses. Anterior chest wall permacath. Neuro awake alert oriented x 3 Data 12/20/23 02:03 12/20/23 02:03 Micro: Microbiology 12/19/23 17:33 Blood Culture - Preliminary Blood SPECIMEN COLLECTED 12/19/23 17:28 Blood Culture - Preliminary Blood SPECIMEN COLLECTED A&P Assessment and plan (1) End stage renal failure on dialysis: 58-year-old gentleman ESRD CAD peripheral arterial disease status post TMA diabetes obesity. Patient here with hypertension volume overload and pleural effusions on imaging. 1. Patient was seen by cardiology who did not feel that he is having an ST elevation [place]. Though troponin is elevated at 1 55-1 68 delta troponin only mildly elevated at 13.5. Check echo. 2. ESRD -s/p hd yesterday. did not tolerate significant fluid removal. plan repeat hd tomorrow 3.SOB- consider thoracentesis- he has b/l pleural effusions on imaging 4. Hypertension -remove volume on dialysis. coreg 12.5 bid, add losartan 5. pna- renal dose abx 6. anemia- ferritin 1764, tsat 39%- no iv iron, use VAN 7, replace vit d The patient was seen and examined using audiovisual equipment with the aid of a nurse. The patient consents to telehealth and to hemodialysis. Case discussed in detail with the patient his nurse . Plan See above. Attestations 2 Medical Necessity Statement*: CHF, effusions, esrd, htn Time Spent in Patient Care: 16 - 35 minutes (>than 50% of time sp ent in counselling and/or direct pt care on unit) . Coding Level of Care Code Acute Code for Chg Fwd Diagnoses End stage renal failure on dialysis N18.6; Z99.2
[2023-12-20 10:37] LABS: Hepatitis B Surface AB < 3.5 (11.5-1000); Hepatitis B Surface Antigen Non-Reactive (Nonreactive); Hepatitis C Virus Antibody Non-Reactive (Nonreactive)
[2023-12-20] MEDS: ergocalciferol (vitamin D2) 50,000 Unit Capsule 50000 UNIT PO (12:24)
[2023-12-20 12:27] LABS: Glucose Point of Care 123 mg/dL (70-110)
--- NOTE | 2023-12-20 12:40 | PM.PN ---
Subjective Subjective: Patient was seen this morning, he has complaints of shortness of breath, he is on 3 L, did receive dialysis yesterday, no fevers, no chills overnight, no chest discomfort Vitals/I&O/Wt Last Vital Signs Temp 97.9 F 12/20/23 01:38 Pulse 94 12/20/23 10:11 Resp 17 12/20/23 10:11 BP 161/69 12/20/23 08:30 Pulse Ox 95 12/20/23 10:11 O2 Del Method Nasal Cannula 12/20/23 10:11 O2 Flow Rate 3 12/20/23 10:11 FiO2 21 12/19/23 21:37 12/19/23 12/20/23 12/20/23 22:59 06:59 14:59 Intake Total 480 / 480 1152.05 / 1632.05 460 / 460 Output Total 2001 Balance 480 / 480 -849.95 / -369.95 460 / 460 Weight last 48 hrs Weight 98 kg Weight 96 kg Weight 97.5 kg Weight 97.522 kg Physical Exam Const: COMMON NORMALS: no acute distress and patient oriented x3 Resp: COMMON NORMALS: normal respiratory effort, No retractions and No use of accessory muscles AUSCULTATION: crackles and rales Cardio: COMMON NORMALS: regular rate, regular rhythm, S1 normal heart sound present and S2 normal heart sound present RATE: regular rate RHYTHM: regular rhythm HEART SOUNDS: S1 normal heart sound present and S2 normal heart sound present GI: COMMON NORMALS: Normal to inspection, nondistended, normoactive bowel sounds present and non-tender Extremity: COMMON NORMALS: no pedal edema Neuro: COMMON NORMALS: patient oriented x3 Psych: COMMON NORMALS: mental status grossly normal Data 12/20/23 02:03 12/20/23 02:03 Micro: Microbiology 12/19/23 17:33 Blood Culture - Preliminary Blood SPECIMEN COLLECTED 12/19/23 17:28 Blood Culture - Preliminary Blood SPECIMEN COLLECTED A&P Assessment and plan (1) HTN (hypertension): Qualifiers: Hypertension type: essential hypertension Qualified Code(s): I10 - Essential (primary) hypertension (2) CAD (coronary artery disease): Qualifiers: Coronary Disease-Associated Artery/Lesion type: [place] artery [place] vs. transplanted heart: [place] heart Associated angina: without angina Qualified Code(s): I25.10 - Atherosclerotic heart disease of [place] coronary artery without angina pectoris (3) PAD (peripheral artery disease): (4) Dyslipidemia: (5) Diabetes mellitus, type II: Qualifiers: Diabetes mellitus shelter insulin use: without watermelon harvesting supervisor use Diabetes mellitus complication status: with circulatory complication Diabetes mellitus complication detail: with peripheral angiopathy with gangrene Qualified Code(s): E11.52 - Type 2 diabetes mellitus with diabetic peripheral angiopathy with gangrene (6) GERD (gastroesophageal reflux disease): (7) End stage renal failure on dialysis: (8) Acute hypoxic respiratory failure: (9) CHF exacerbation: (10) Chest pain: Qualifiers: Chest pain type: unspecified Qualified Code(s): R07.9 - Chest pain, unspecified (11) NSTEMI (non-ST elevated myocardial infarction): (12) Pneumonia: Plan Acute hypoxic respiratory failure ? Likely secondary to systolic CHF exacerbation, CT chest showing bilateral pleural effusions, BNP over 60,000 ? Concerns for bilateral pleural effusions -Has concerns for left lower lobe pneumonia, given leukocytosis complains of cough ? Plan ? Monitor in ICU ? Will consider BiPAP based on clinical progress ? Status post dialysis last night we will consider dialysis today based on clinical progress ? Continue Rocephin ? Continue azithromycin ? Blood cultures ? Monitor respiratory status closely Chest pain, NSTEMI ? Initial troponin 155, 120-minute 168.5 ? EKG T wave inversions in anterior leads, ? Plan ? Continue aspirin, statin, Plavix ? Heparin drip ? Cardiac echo pending ? Monitor for chest pain Type 2 diabetes mellitus, low-dose sliding scale End-stage renal disease on dialysis Hypothyroidism continue levothyroxine Peripheral arterial disease, no complaints of lower extremity pain Full code ? Heparin drip for DVT prophylaxis, ? Protonix for GI prophylaxis Patient requires hospitalization, for persistent shortness of breath, systolic CHF exacerbation, pneumonia, Attestations Medical Necessity Statement*: Patient requires hospitalization, for persistent shortness of breath, systolic CHF exacerbation, pneumonia, Diagnoses Essential hypertension I10 Hypertension type: essential hypertension Coronary artery disease involving [place] coronary artery of [place] heart without angina pectoris I25.10 Coronary Disease-Associated Artery/Lesion type: [place] artery [place] vs. 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
[2023-12-20 15:02] LABS: Partial Thromboplastin Time 87.2 SECONDS (23.9-36.7)
[2023-12-20] MEDS: epoetin alfa (ESRD) 8,000 UNIT in SYRINGE 1 EACH 1 UNIT HE (16:37)
[2023-12-20] MEDS: albumin 25 G/100 ML BAG 60 G IV (16:37)
[2023-12-20 17:33] LABS: Glucose Point of Care 122 mg/dL (70-110)
[2023-12-20] MEDS: morphine 4 mg/mL SDV 1 mL 2 MG IVP (17:57)
--- NOTE | 2023-12-20 18:40 | USCV_ITS ---
Christiano Kearns Age: 58 Gender: M : 1965 Exam Date: 12/20/2023 02:01 Ordering Phys: Shashi Vásquez MD Technologist: LEIGH ANN [place]am [place] [facility] [place]ication: nstemi, hx CAD, DM, end-stage renal disease on dialysis. BP: 198 / 110 HR: 83 Rhythm: Atrial fibrillation Technical Quality: Adequate MEASUREMENTS (Male / Female) Normal Values 2D ECHO LV Diastolic Diameter PLAX 4.0 cm 4.2 - 5.9 / 3.9 - 5.3 cm IVS Diastolic Thickness 1.4 cm 0.6 - 1.0 / 0.6 - 0.9 cm IVS Systolic Thickness 1.4 cm LVPW Diastolic Thickness 2.1 cm 0.6 - 1.0 / 0.6 - 0.9 cm LVPW Systolic Thickness 2.2 cm LVOT Diameter 2.2 cm LV Ejection Fraction 2D Teich 62.4 % LV Ejection Fraction MOD 4C 55.8 % LV Ejection Fraction MOD 2C 24.4 % LV Ejection Fraction 2C AL 24.4 % LA Diameter 5.2 cm Aorta at Sinotubular Diameter 3.0 cm IVC Diameter 1.5 cm M-MODE LA Ao Ratio MM 1.5 AV Cusp Separation MM 1.5 cm DOPPLER AV Peak Velocity 238.7 cm/s LVOT Peak Velocity 102.0 cm/s AV Area Cont Eq vti 1.5 cm squared AV Area Cont Eq pk 1.6 cm squared MV Peak Velocity 232.0 cm/s MV Area PHT 4.7 cm squared Mitral E to A Ratio 0.0 TR Peak Velocity 178.0 cm/s TR Peak Gradient 12.7 mmHg TV Peak E Velocity 63.0 cm/s Right Atrial Pressure 3.0 mmHg Pulmonary Artery Systolic Pressu 15.7 mmHg PV Peak Velocity 85.0 cm/s FINDINGS Left Ventricle Mildly increased left ventricular cavity size. Left ventricular ejection fraction is estimated at 50 %. No regional wall motion abnormalities. In the presence of atrial fibrillation diastolic function cannot be assessed accurately. Right Ventricle The right ventricle is normal in size and function. Right Atrium The right atrium is normal in size. Left Atrium Moderately increased left atrial size. Mitral Valve Moderately thickened mitral valve. Moderate mitral annular calcification. Moderate mitral valve regurgitation. Aortic Valve Severe aortic valve calcification. Moderate aortic valve stenosis, mean gradient 11 mmHg, CHAIM 1.5 cm squared. Trace aortic valve regurgitation. Tricuspid Valve Mild tricuspid valve regurgitation. Pulmonic Valve Structurally normal pulmonic valve without significant stenosis. There is no pulmonic regurgitation. Pericardium Normal pericardium without effusion. Aorta Normal ascending aorta dimension. IVC The inferior vena cava appears normal. CONCLUSIONS Mildly increased left ventricular cavity size. Left ventricular ejection fraction is estimated at 50 %. No regional wall motion abnormalities. In the presence of atrial fibrillation diastolic function cannot be assessed accurately. Moderately increased left atrial size. Moderately thickened mitral valve. Moderate mitral annular calcification. Moderate mitral valve regurgitation. Severe aortic valve calcification. Moderate aortic valve stenosis, mean gradient 11 mmHg, CHAIM 1.5 cm squared. Trace aortic valve regurgitation. Pleural effusion noted. There is no pericardial effusion. Right atrial pressure is around 10 mm of mercury. Greta Gr MD (Electronically Signed) Final Date: 20 December 2023 20:20 S
[2023-12-20] MEDS: heparin drip 25,000 UNIT/500 ML PREMIX 23 UNIT IV (21:07)
[2023-12-20] MEDS: cefTRIAXone 1,000 mg SDV 1000 MG IVP (21:08)
[2023-12-20] MEDS: pantoprazole 40 mg SDV IVP (21:08)
[2023-12-20 21:41] LABS: Glucose Point of Care 171 mg/dL (70-110)
[2023-12-20 22:08] LABS: Partial Thromboplastin Time 101.5 SECONDS (23.9-36.7)
[2023-12-20] MEDS: insulin lispro 100 unit/1 mL SUBCUT (22:45)
[2023-12-21] VITALS (216 sets, daily range): BP systolic 79–192; BP diastolic 26–116; PULSE 39–100; RESP 4–33; TEMP 35.8–36.6; O2SAT 84–100
[2023-12-21] MEDS: morphine 4 mg/mL SDV 1 mL 2 MG IVP ×2 (02:23→21:49)
[2023-12-21 02:29] LABS: Glucose Point of Care 103 mg/dL (70-110)
--- NOTE | 2023-12-21 03:04 | ECG_ITS ---
[facility] [employer] Test Date: 2023-12-21 Pat Name: Christiano Kearns Department: Room: ICU10 Gender: Male Road Manager: : 1965 Requested By: Greta Sorensen Order Number: [id number] Zach MD: Jessica Torrez M.D. Measurements Intervals [place] Rate: 82 P: 0 NC: 213 QRS: -5 QRSD: 120 T: 156 QT: 429 QTc: 503 Interpretive Statements SINUS RHYTHM WITH FIRST DEGREE AV BLOCK MODERATE INTRAVENTRICULAR CONDUCTION DELAY [105+ ms QRS DURATION, 80+ ms Q/S IN V1/V2, NO Q AND 60+ ms R IN I/aVL/V5/V6] ST DEVIATION AND MODERATE T-WAVE ABNORMALITY, CONSIDER LATERAL ISCHEMIA [-0.1+ mV T-WAVE IN I/aVL/V5/V6] Compared to ECG 12/19/2023 22:23:02 First degree AV block now present Intraventricular conduction delay now present Ventricular premature complex(es) no longer present Myocardial infarct finding no longer present T-wave abnormality still present Possible ischemia still present Electronically Signed On 12-22-2023 21:58:00 [employer] by Jessica Torrez M.D. [id number]
[2023-12-21 05:37] LABS: Basophils # 0.1 10^3/uL (0.0-0.1); Basophils % 1.5 %; Eosinophils # 0.4 10^3/uL (0.0-0.8); Eosinophils % 4.3 %; Lymphocytes # 1.5 10^3/uL (0.8-4.8); Lymphocytes % 16.2 %; Mean Corpuscular HGB Conc 31.7 g/dL (30-55); Mean Corpuscular Hemoglobin 30.4 pg (27-33); Mean Corpuscular Volume 95.7 fl (82-101); Mean Platelet Volume 10.8 fL (7.4-10.4); Monocytes # 0.6 10^3/uL (0.2-0.9); Monocytes % 6.5 %; Neutrophils # 6.49 10^3/uL (1.8-7.7); Neutrophils % 71.2 %; Nucleated Red Blood Cells % 0 %; Platelet Count 257 10^3/cmm (157-399); Red Blood Count 3.03 10^6/uL (3.85-5.65); White Blood Count 9.12 10^3/uL (3.29-11.43)
[2023-12-21 05:48] LABS: Partial Thromboplastin Time 42.5 SECONDS (23.9-36.7)
[2023-12-21 06:00] LABS: Alanine Aminotransferase 10 U/L (0-41); Albumin Level 4.5 g/dL (3.5-5.2); Alkaline Phosphatase 103 U/L (40-130); Anion Gap 18.1 (5-19); Aspartate Amino Transferase 9 U/L (0-40); Blood Urea Nitrogen 23 mg/dL (6-20); Carbon Dioxide 24 mmol/L (22-29); Chloride 99 mmol/L (98-107); Globulin 2.1 g/dL (1.3-4.6); Glomerular Filtration Rate 10.3 mL/min (90-130); Glucose 94 mg/dL (65-115); Osmolality Calculated 287 mOsm/kg (285-295); Phosphorus 2.7 mg/dL (2.5-4.5); Potassium 4.1 mmol/L (3.5-5.1); Sodium 137 mmol/L (136-145); Total Bilirubin 0.4 mg/dL (0.15-1.2); Total Protein 6.6 g/dL (6.6-8.7)
--- NOTE | 2023-12-21 06:17 | PC.NURSE ---
Patient began complaining of chest tightness and heaviness. EKG performed and PRN MS administered. Reported improvement following, then later began complaining of chest tightness and heaviness with shortness of breath and headache. Had increasing anxiety with these complaints and blood pressure increase. Message sent to physician, no new orders at that time. Contacted via telephone due to ongoing complaints, new 1x order for dilaudid received.
[2023-12-21] MEDS: HYDROmorphone 1 mg/mL INJ 1 mL 0.2 MG IVP (06:28)
[2023-12-21] MEDS: levothyroxine 125 mcg Tablet PO (06:29)
--- NOTE | 2023-12-21 07:45 | P.PN_ITS ---
Subjective 2 Subjective: Status post hemodialysis yesterday. The patient still has chest pain and shortness of breath. Patient states that he felt fine this morning however when she awoke went to the chair developed shortness of breath. He has no nausea no vomiting no itching or cramps. No diarrhea. He had an echocardiogram yesterday. Medications: Reviewed: Yes Medication Review Details: Current Medications Acetaminophen (Acetaminophen 325 Mg Tablet) 650 mg PO Q6H PRN PRN Reason: Mild/Mod Pain Or Temp >/= 101 Last Admin: 12/20/23 22:44 Dose: 650 mg Albuterol/Ipratropium (Ipratropium-Albuterol 3 Ml Neb) 3 ml INHALATION Q6H PRN PRN Reason: SHORTNESS OF BREATH Aspirin (Aspirin 81 Mg Ec Tablet) 81 mg PO DAILY THEA Last Admin: 12/20/23 08:40 Dose: 81 mg Atorvastatin Calcium (Atorvastatin 40 Mg Tablet) 40 mg PO BEDTIME THEA Last Admin: 12/20/23 21:09 Dose: 40 mg Carvedilol (Carvedilol 12.5 Mg Tablet) 12.5 mg PO BID THEA Last Admin: 12/20/23 17:35 Dose: 12.5 mg Ceftriaxone Sodium (Ceftriaxone 1,000 Mg Sdv) 1,000 mg IVP Q24H THEA; Protocol Last Admin: 12/20/23 21:08 Dose: 1,000 mg Clopidogrel Bisulfate (Clopidogrel 75 Mg Tablet) 75 mg PO DAILY THEA Last Admin: 12/20/23 08:40 Dose: 75 mg Ergocalciferol (Ergocalciferol (Vitamin D2) 50,000 Unit Capsule) 50,000 unit PO Q7D THEA Last Admin: 12/20/23 12:24 Dose: 50,000 unit Glucagon (Glucagon 1 Mg/Ml Kit 1 Ml) 1 mg IM ONCE PRN; Protocol PRN Reason: Adult Acute Hypoglycemia Nursing Prot. Heparin Sodium (Porcine) (Heparin 5,000 Unit/Ml Inj 1 Ml) 0 unit IVP PRN PRN; Protocol PRN Reason: Heparin Weight Based Protocol -Subsequent Bolus Azithromycin 500 mg/ Sodium (Chloride) 250 mls @ 250 mls/hr IV Q24H THEA; Protocol Last Infusion: 12/20/23 22:39 Dose: Infused Dextrose (D5w) 500 mls @ 0 mls/hr IV ONCE PRN; Protocol PRN Reason: Adult Acute Hypoglycemia Prot Dextrose (D10w) 125 mls @ 750 mls/hr IV PRN PRN; Protocol PRN Reason: Adult Acute Hypoglycemia Nursing Protocol Dextrose (D10w) 250 mls @ 1,000 mls/hr IV PRN PRN; Protocol PRN Reason: Adult Acute Hypoglycemia Nursing Protocol Heparin Sodium/Sodium Chloride (Heparin Drip) 25,000 unit in 500 mls @ 0 mls/hr IV CONT THEA; Protocol Last Titration: 12/21/23 06:34 Dose: 10.77 unit/kg/hr, 21 mls/hr Epoetin Pancho 8,000 unit/ N/A 0.4 mls @ 0 mls/hr HE DIALYSIS THEA Last Infusion: 12/20/23 17:30 Dose: Infused Insulin Human Lispro (Insulin Lispro 100 Unit/1 Ml) 0 unit SUBCUT WM&BEDTIME THEA; Protocol Last Admin: 12/20/23 22:45 Dose: 1 unit Levothyroxine Sodium (Levothyroxine 125 Mcg Tablet) 125 mcg PO QAM THEA Last Admin: 12/21/23 06:29 Dose: 125 mcg Morphine Sulfate (Morphine 4 Mg/Ml Sdv 1 Ml) 2 mg IVP Q4H PRN PRN Reason: SEVERE PAIN Last Admin: 12/21/23 02:23 Dose: 2 mg Ondansetron HCl (Ondansetron 2 Mg/Ml Sdv 2 Ml) 4 mg IVP Q8H PRN PRN Reason: vomiting, or N/V if npo Pantoprazole Sodium (Pantoprazole 40 Mg Sdv) 40 mg IVP Q24H THEA Last Admin: 12/20/23 21:08 Dose: 40 mg Vitals/I&O/Wt Last Vital Signs Temp 98.2 F 12/20/23 20:00 Pulse 83 12/21/23 05:55 Resp 22 H 12/21/23 06:28 BP 173/69 12/21/23 05:20 Pulse Ox 98 12/21/23 06:28 O2 Del Method Nasal Cannula 12/20/23 10:11 O2 Flow Rate 3 12/20/23 10:11 FiO2 21 12/19/23 21:37 12/20/23 12/21/23 12/21/23 22:59 06:59 14:59 Intake Total 1028.35 / 1608.35 295.35 / 1903.70 Balance 1028.35 / 1608.35 295.35 / 1903.70 Weight last 48 hrs Weight 98 kg Weight 96 kg Weight 97.5 kg Weight 97.522 kg Physical Exam 2 Narrative: comfortable in chair using nasal cannula oxygen. Vital signs noted. HEENT normocephalic atraumatic. Neck is supple. Lungs improved air movement b/l. Heart regular. Abdomen is soft positive bowel sounds. Extremities bilateral 1+ edema poor pulses. Anterior chest wall permacath. Neuro awake alert oriented x 3 Data 12/21/23 05:14 12/21/23 05:30 Micro: Microbiology 12/19/23 17:33 Blood Culture - Preliminary Blood NEGATIVE TO DATE 12/19/23 17:28 Blood Culture - Preliminary Blood NEGATIVE TO DATE A&P Assessment and plan (1) End stage renal failure on dialysis: 58-year-old gentleman ESRD CAD peripheral arterial disease status post TMA diabetes obesity. Patient here with hypertension volume overload and pleural effusions on imaging. 1. Patient was seen by cardiology who did not feel that he is having an ST elevation [place]. Though troponin is elevated at 1 55-1 68 delta troponin only mildly elevated at 13.5. - echo. EF at 50% positive A-fib, moderate mitral valve regurgitation, severe aortic valve calcification with moderate aortic valve stenosis, right atrial pressure of 10 mmHg. Cardiology evaluation -Patient has moderate mitral regurgitation and severe aortic stenosis to be evaluated by cardiology May need cardiac cath may need valvular heart intervention. 2. ESRD -s/p hd last 2 days. plan repeat hd tomorrow -Potassium is 4.1 creatinine down to 5.7 bicarbonate 24 -Normal phosphorus. PTH 399 with use of vitamin D analog- once. otherwise vitd weekly 3.SOB- cta on admission revealed patchy pulmonary edema large bilateral pleural effusions would consider tapping. Full cardiology evaluation today. The patient is on antibiotics for possible pneumonia Rocephin and azithromycin. 4. Hypertension -remove volume on dialysis. coreg 12.5 bid, losartan 5. Diabetic control per medicine. 6. anemia- ferritin 1764, tsat 39%- no iv iron, use VAN 7, replace vit d 8. Hypothyroidism on levothyroxine. The patient was seen and examined using audiovisual equipment with the aid of a nurse. The patient consents to telehealth and to hemodialysis. Case discussed in detail with the patient his nurse . Plan See above. Attestations 2 Medical Necessity Statement*: cp/ sob/ esrd/ anemia Time Spent in Patient Care: Greater than 35 minutes (>than 50% of time spent in counselling and/or direct pt care on unit) . Coding Level of Care Code Acute Code for Chg Fwd Diagnoses End stage renal failure on dialysis N18.6; Z99.2
[2023-12-21 08:08] LABS: Glucose Point of Care 102 mg/dL (70-110)
[2023-12-21] MEDS: carvedilol 12.5 mg Tablet PO ×2 (08:16→17:15)
[2023-12-21] MEDS: losartan 50 mg Tablet PO (08:16)
[2023-12-21] MEDS: clopidogrel 75 mg Tablet PO (08:16)
[2023-12-21] MEDS: aspirin 81 mg EC Tablet PO (08:16)
[2023-12-21 12:26] LABS: Glucose Point of Care 163 mg/dL (70-110)
[2023-12-21] MEDS: insulin lispro 100 unit/1 mL SUBCUT (12:27)
--- NOTE | 2023-12-21 12:45 | PM.CONSULT ---
Documented by User: Hilda Dubose NP 12/21/23 14:00 Providers/Reason For Consult Consulting Physician/Specialty*: Jessica Torrez MD Reason for Consult*: NSTEMI Requesting Physician: Dr. Vásquez Attending Physician: Shashi Vásquez MD Primary Care Provider: ENRIQUE Ramirez History of Present Illness History of Present Illness Christiano Kearns is a very pleasant 58 year old male with a past medical history of CAD with coronary stentx1 per patient a few years ago, severe PAD, moderate bilateral carotid disease, end-stage renal disease on dialysis (usually Tuesday, , and saturdays) hx of renal mass probable renal cell carcinoma. Hx of type 2 diabetes mellitus, hypertension, hyperlipidemia, hypothyroidism, who presented a couple of days ago to [facility] for shortness of breath and chest pain across the chest. He states his primary got an EKG that was abnormal and sent him here. He states this pain was very short acting. He states was pressure that only lasted a few minutes and resolved at the time he got to the hospital. It did not radiate. A STEMI was called off due to EKG changes did not show acute ST elevation or depression. Currently patient states chest pain has resolved but still has dry cough and shortness of breath on exertion relieved with rest. Currently on 2 L O2 sat 91% on RA. He does have a known murmur in the aortic space. 04/19. Upon arrival patient's troponin showed 155?168.5?195.2 with delta being positive at 13.5 (troponins chronically elevated) proBNP recently greater than 70,000. He did have T wave inversions in his lateral leads which is a change from previous EKG. CT of the chest was done that showed bilateral pleural effusions with heart failure. Review of Systems Narrative: Consitutional: denies fever, chills, body aches, or changes in appetite, denies abnormal weight loss Eyes: Denies changes in vision Card: Denies chest pain at this time, reported chest pain initially that dissipated quickly, palpitations, irregular heart rhythm, edema, syncope, reports shortness of breath on exertion, reports orthopnea Resp: reports shortness of breath on exertion, reports orthopnea, denies hemoptysis, reports dry cough GI: denies abdominal pain, denies nausea or voimting, denies blood in stool Musc: Denies extremity pain, denies limited range of motion or recent injury Skin: Denies rash, lesions, or wounds, denies changes to skin color Neuro: Denies nubmness in extremities, h/a, s/s of stroke Oscar: Denies easy bruiding/bleeding Medications/Allergies Home Medications Medication Instructions Recorded Confirmed Last Taken Type hydrocodone 10 mg-acetaminophen 1 tab PO Q4H PRN Pain 03/01/19 12/19/23 12/18/23 History 325 mg tablet glucometer #1 ea 07/28/19 12/19/23 Unknown Rx glucometer strips #100 ea 07/28/19 12/19/23 Unknown Rx sennosides 8.6 mg-docusate sodium 1 tab PO BID #60 tabs 07/28/19 12/19/23 12/03/21 Rx 50 mg tablet diabetic shoes and inserts #1 ea 11/05/20 12/19/23 Unknown Rx pen needle, diabetic 31 gauge x #100 ea 03/05/21 12/19/23 Unknown Rx 3/16 (Comfort EZ [place]) Diabetic shoes with inserts #1 ea 05/22/21 12/19/23 Unknown Rx short cam boot to the right #1 ea 08/21/21 12/19/23 Unknown Rx calcium carbonate 200 mg PO TID 10/30/21 12/19/23 12/19/23 History furosemide 40 mg tablet 40 mg PO DAILY 12/07/21 12/19/23 12/19/23 History acetaminophen 500 mg tablet 1,000 mg (2 x 500 mg) PO BID fever 02/26/22 12/19/23 Unknown Rx (Tylenol Extra Strength) 7 days #28 tabs foam bandage 4 X 4 (Optifoam) #100 ea 03/26/22 12/19/23 Unknown Rx PolymemAG (with silver) and Zoe #1 ea 04/01/22 12/19/23 Unknown Rx SAP OWLS boot #1 ea 09/01/22 12/19/23 Unknown Rx Hydrafera Blue READY Antibacterial #1 ea 10/27/22 12/19/23 Unknown Rx Foam Dressing and Zoe SAP atorvastatin 20 mg tablet 20 mg PO DAILY #30 tabs 09/30/23 12/19/23 12/19/23 Rx carvedilol 12.5 mg tablet 12.5 mg PO BID #60 tabs 09/30/23 12/19/23 12/19/23 Rx clopidogrel 75 mg tablet 75 mg PO DAILY #30 tabs 09/30/23 12/19/23 12/19/23 Rx insulin degludec 100 unit/mL (3 15 unit (0.15 mL) SUBCUT DAILY #15 09/30/23 12/19/23 12/19/23 Rx mL) subcutaneous pen (Tresiba mL FlexTouch U-100 insulin) lisinopril 10 mg tablet 10 mg PO DAILY #30 tabs 09/30/23 12/19/23 Unknown Rx nifedipine 60 mg tablet,extended 60 mg PO DAILY #30 tabs 09/30/23 12/19/23 12/19/23 Rx release pantoprazole 40 mg tablet,delayed 40 mg PO DAILY #30 tabs 09/30/23 12/19/23 Unknown Rx release tadalafil 10 mg tablet (Cialis) 10 mg PO DAILY PRN sexual activity 11/28/23 12/19/23 Unknown Rx #10 tabs Diabetic shoes with inserts and #1 ea 12/02/23 12/19/23 Unknown Rx toe filler aspirin 81 mg tablet,delayed 81 mg PO DAILY HEART HEALTH 12/19/23 12/19/23 12/19/23 History release levothyroxine 125 mcg tablet 125 mcg PO DAILY 12/19/23 12/19/23 12/19/23 History Allergies Allergy/AdvReac Type Severity Reaction Status Date / Time nitrofurantoin Allergy unknown Verified 12/19/23 15:03 clavulanic acid AdvReac Severe Nausea Verified 12/19/23 15:03 [From Augmentin] amoxicillin [From Augmentin] AdvReac Intermediate Nausea Verified 12/19/23 15:03 Current Medications Generic Name Dose Route Start Last Admin Trade Name Freq PRN Reason Stop Dose Admin Acetaminophen 650 mg 12/19/23 18:44 12/20/23 22:44 Acetaminophen 325 Mg Tablet PO 650 mg Q6H PRN Administration Mild/Mod Pain Or Temp >/= 101 Aspirin 81 mg 12/20/23 09:00 12/21/23 08:16 Aspirin 81 Mg Ec Tablet PO 81 mg DAILY THEA Administration Atorvastatin Calcium 40 mg 12/19/23 21:00 12/20/23 21:09 Atorvastatin 40 Mg Tablet PO 40 mg BEDTIME THEA Administration Carvedilol 12.5 mg 12/19/23 18:45 12/21/23 08:16 Carvedilol 12.5 Mg Tablet PO 12.5 mg BID THEA Administration Ceftriaxone Sodium 1,000 mg 12/19/23 18:45 12/20/23 21:08 Ceftriaxone 1,000 Mg Sdv IVP 1,000 mg Q24H THEA Administration Protocol Clopidogrel Bisulfate 75 mg 12/20/23 09:00 12/21/23 08:16 Clopidogrel 75 Mg Tablet PO 75 mg DAILY THEA Administration Ergocalciferol 50,000 unit 12/20/23 10:00 12/20/23 12:24 Ergocalciferol (Vitamin D2) 50,000 Unit Capsule PO 50,000 unit Q7D THEA Administration Azithromycin 500 mg/ Sodium 250 mls @ 250 mls/hr 12/19/23 18:45 12/20/23 22:39 Chloride IV Infused Q24H THEA Infusion Protocol Heparin Sodium/Sodium Chloride 25,000 unit in 500 mls @ 0 mls/hr 12/19/23 18:45 12/21/23 06:34 Heparin Drip IV 10.77 unit/kg/hr CONT THEA 21 mls/hr Titration Protocol Per Protocol Epoetin Pancho 8,000 unit/ N/A 0.4 mls @ 0 mls/hr 12/20/23 10:00 12/20/23 17:30 HE Infused DIALYSIS THEA Infusion As Directed Insulin Human Lispro 0 unit 12/19/23 21:00 12/21/23 12:27 Insulin Lispro 100 Unit/1 Ml SUBCUT 2 unit WM&BEDTIME THEA Administration Protocol Levothyroxine Sodium 125 mcg 12/20/23 06:00 12/21/23 06:29 Levothyroxine 125 Mcg Tablet PO 125 mcg QAM THEA Administration Losartan Potassium 50 mg 12/21/23 09:00 12/21/23 08:16 Losartan 50 Mg Tablet PO 50 mg DAILY THEA Administration Morphine Sulfate 2 mg 12/19/23 18:44 12/21/23 02:23 Morphine 4 Mg/Ml Sdv 1 Ml IVP 2 mg Q4H PRN Administration SEVERE PAIN Pantoprazole Sodium 40 mg 12/19/23 18:45 12/20/23 21:08 Pantoprazole 40 Mg Sdv IVP 40 mg Q24H THEA Administration PFSH Acute PFSH: Medical History Anginal equivalent ESRD (end stage renal disease) Pulmonary edema Acute respiratory distress Hypertensive emergency HTN (hypertension) Syrinx of spinal cord Protrusion of thoracic intervertebral disc Diabetes mellitus, type II CAD (coronary artery disease) Cardiac stent x1 Malignant hypertension Peripheral vascular disease Polyneuropathy Acquired spondylolisthesis HPTH (hyperparathyroidism) Vitamin D deficiency Chronic hypertension PAD (peripheral artery disease) With critical lower limb ischemia 06/2019 requiring intervention with CSI atherectomy of the SFA followed by [id number] balloon angioplasty, CSI atherectomy of the tibial peroneal trunk and left anterior tibial followed by balloon angioplasty, reconstruction of the arch of the foot which was completely occluded. End stage renal failure on dialysis Acquired hypothyroidism Environmental and seasonal allergies Anxiety and depression Erectile dysfunction due to diseases classified elsewhere Dyslipidemia Surgical History Peritoneal dialysis catheter in place removed 08/2019, due to be replaced 07/24/2020 Amputated toe of left foot due to gangrene 06/27/2019, with subsequent removal of all toes left foot 08/2019 at [place], [place] History of repair of right rotator cuff History of toe surgery Left great toe debridement History of heart artery stent Family History Brother Cancer Mother Cancer Father Heart disease Social History Smoking and tobacco/nicotine status: tobacco/nicotine user, details unknown Second hand smoke exposure: No Alcohol intake: never Substance/Drug Use: never Caregiver/support person: No Lives independently: Yes Housing: House Marital status: Legally Highest education level completed: Some College, No Degree service: No Current occupational status: disabled Pets and animals: Yes Do you think of yourself as: Straight/Heterosexual Current gender identity: Male Vitals/I&O/Wt Last Vital Signs Temp 96.4 F L 12/21/23 08:00 Pulse 86 12/21/23 09:47 Resp 16 12/21/23 09:47 BP 161/52 12/21/23 08:55 Pulse Ox 95 12/21/23 09:47 O2 Del Method Room Air 12/21/23 09:47 O2 Flow Rate 3 12/20/23 10:11 FiO2 21 12/19/23 21:37 12/20/23 12/21/23 12/21/23 22:59 06:59 14:59 Intake Total 1028.35 / 1608.35 295.35 / 1903.70 240 / 240 Balance 1028.35 / 1608.35 295.35 / 1903.70 240 / 240 Weight last 48 hrs Weight 216 lb 0.848 oz Weight 211 lb 10.3 oz Weight 214 lb 15.211 oz Weight 215 lb Physical Exam Narrative: General: No apparent distress, healthy appearing, well nourished HENMT: normoceophalic Neck: No carotid bruit bilaterally Muskuloskeletal: Full ROM Lymphatic: no lymphedema noted Respiratory: bilateral posterior lower lobes diminished, dry cough present Cardio: No JVD, regular rate, regular rhythm, S1 S2 normal, grade 3/6 murmur aortic space, peripheral pulses 2+ radial palpated bilaterally GI: abdomen distended Extremities: Full ROM, normal, normal capillary refill, no cyanosis or edema Neuro: Alert and oriented x4, no focal motor deficits Psych: Affect normal, denies suicidal ideation, mental status grossly normal Skin: No rashes or lesions noted, no wounds Data 12/21/23 05:14 12/21/23 05:30 Micro: Microbiology 12/19/23 17:33 Blood Culture - Preliminary Blood NEGATIVE TO DATE 12/19/23 17:28 Blood Culture - Preliminary Blood NEGATIVE TO DATE Other data: 10/19/2017 Carotid doppler CONCLUSIONS Atherosclerotic plaque causing:. 41 to 59% stenosis of the right internal carotid artery. 41 to 59% stenosis of the left internal carotid artery. 07/22/2020 Myocardial perfusion imaging IMPRESSIONS 1. Abnormal myocardial perfusion imaging with partially reversible perfusion defect in inferior and apical inferior soto. This is consistent with small sized prior infarct with rae-infarct ischemia. 2. LV systolic function is normal. 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 Intervention attempt failed. CT chest IMPRESSION: 1. Multifocal patchy bilateral pulmonary ground-glass opacities. Differential includes pneumonia and/or pulmonary edema. 2. There are bilateral pleural effusions with underlying compressive atelectasis or infiltrate. 3. Multivessel atherosclerotic disease which involves the coronary arteries. Echo Complete CONCLUSIONS Mildly increased left ventricular cavity size. Left ventricular ejection fraction is estimated at 50 %. No regional wall motion abnormalities. In the presence of atrial fibrillation diastolic function cannot be assessed accurately. Moderately increased left atrial size. Moderately thickened mitral valve. Moderate mitral annular calcification. Moderate mitral valve regurgitation. Severe aortic valve calcification. Moderate aortic valve stenosis, mean gradient 11 mmHg, CHAIM 1.5 cm squared. Trace aortic valve regurgitation. Pleural effusion noted. There is no pericardial effusion. Right atrial pressure is around 10 mm of mercury. A&P Assessment and plan (1) NSTEMI (non-ST elevated myocardial infarction): Patient has chronically elevated troponins. History of coronary artery disease with prior stenting. EKG with changes in the lateral leads. Currently patient is without chest pain. Patient is on heparin drip. Patient's chest pain was across his chest. Although this could be from fluid overload and CHF exacerbation, acute coronary ischemia remains on the differential diagnosis. Echo showed EF estimated at 50%. Pleural effusions are noted. Patient has shortness of breath with dry cough. He will get dialysis today. (2) CAD (coronary artery disease): Patient states he has a history of coronary artery disease with stenting x 1. Patient does not have any chest pain at this time but will continue to monitor for acute EKG changes. Qualifiers: Associated angina: without angina Coronary Disease-Associated Artery/Lesion type: [place] artery [place] vs. transplanted heart: [place] heart Qualified Code(s): I25.10 - Atherosclerotic heart disease of [place] coronary artery without angina pectoris (3) CHF exacerbation: Patient has acute diastolic heart failure exacerbation. Patient getting dialysis today. Patient has bilateral pleural effusions. He appears to be in fluid overload at this time with proBNP being over 70,000. Dialysis today. Qualifiers: Heart failure type: diastolic Qualified Code(s): I50.33 - Acute on chronic diastolic (congestive) heart failure (4) Chronic hypertension: Patient has chronic hypertension. It is quite labile. Patient will be getting dialysis today. (5) Dyslipidemia: Patient taking atorvastatin 20 mg daily. Continue this. (6) PAD (peripheral artery disease): Asymptomatic at this time. Patient states he has had peripheral intervention recently at another facility. Will try to get these records. (7) Aortic stenosis: Moderate. Patient will need medical therapy and repeat echo in 1 year. Qualifiers: Cardiac valve disease etiology: etiology unspecified Qualified Code(s): I35.0 - Nonrheumatic aortic (valve) stenosis (8) Mitral regurgitation: Moderate regurgitation patient will need medical therapy and repeat echo 1 year Qualifiers: Cardiac valve disease etiology: etiology unspecified Qualified Code(s): I34.0 - Nonrheumatic mitral (valve) insufficiency Plan Due to elevated troponin levels with EKG changes hx of CAD with stenting, in the setting of chest pain and shortness of breath suspician is high for coronary artery ischemia. We have recommended patient undergo a left heart cath. Plan is to have dialysis after this. Dr. Torrez discussed this with the patient as well as risks and benefits, and he does agree to proceed. Thank you, Dr. Vásquez, for allowing us to take care of this very pleasant 58 year old gentleman. Consult Attestations Medical Necessity Statement: Due to NSTEMI and CHF exacerbation as stated above patient is expected to cross 2 midnights of stay. Coding Level of Care Code 11794 Diagnoses NSTEMI (non-ST elevated myocardial infarction) I21.4 Coronary artery disease involving [place] coronary artery of [place] heart without angina pectoris I25.10 Associated angina: without angina Coronary Disease-Associated Artery/Lesion type: [place] artery [place] vs. transplanted heart: [place] heart Acute on chronic diastolic congestive heart failure I50.33 Heart failure type: diastolic Chronic hypertension I10 Dyslipidemia E78.5 PAD (peripheral artery disease) I73.9 Aortic valve stenosis, etiology of cardiac valve disease unspecified I35.0 Cardiac valve disease etiology: etiology unspecified Mitral valve insufficiency, unspecified etiology I34.0 Cardiac valve disease etiology: etiology unspecified Documented by User: Jessica Torrez MD 12/21/23 19:25 History of Present Illness History of Present Illness Christiano Kearns is a very pleasant 58 year old male with a past medical history of CAD with coronary stentx2 per patient a few years ago, severe PAD, moderate bilateral carotid disease, end-stage renal disease on dialysis (usually Tuesday, , and saturdays) hx of renal mass probable renal cell carcinoma. Hx of type 2 diabetes mellitus, hypertension, hyperlipidemia, hypothyroidism, who presented a couple of days ago to [facility] for shortness of breath and chest pain across the chest. He states his primary got an EKG that was abnormal and sent him here. He states this pain was very short acting. He states that it was pressure-like in nature and lasted for 15 minutes or so and then gradually subsided. Pain was radiating across the chest. No other associated symptoms or radiation. He has some baseline shortness of breath. A STEMI was called off due to EKG changes did not show acute ST elevation or depression. Currently patient states chest pain has resolved but still has dry cough and shortness of breath on exertion relieved with rest. Currently on 2 L O2 sat 91% on RA. He does have a known murmur in the aortic space. 04/19. Upon arrival patient's troponin showed 155?168.5?195.2 with delta being positive at 13.5 (troponins chronically elevated) proBNP recently greater than 70,000. He did have T wave inversions in his lateral leads which is a change from previous EKG. CT of the chest was done that showed bilateral pleural effusions with heart failure. Review of Systems Narrative: Consitutional: denies fever, chills, body aches, or changes in appetite, denies abnormal weight loss Eyes: Denies changes in vision Card: Denies chest pain at this time, reported chest pain initially that dissipated quickly, palpitations, irregular heart rhythm, edema, syncope, reports shortness of breath on exertion, reports orthopnea Resp: reports shortness of breath on exertion, reports orthopnea, denies hemoptysis, reports dry cough GI: denies abdominal pain, denies nausea or voimting, denies blood in stool Genitourinary: End-stage renal disease, on hemodialysis Musc: Denies extremity pain, denies limited range of motion or recent injury Skin: Denies rash, lesions, or wounds, denies changes to skin color Neuro: Denies nubmness in extremities, h/a, s/s of stroke Oscar: Denies easy bruiding/bleeding Medications/Allergies Home Medications Medication Instructions Recorded Confirmed Last Taken Type hydrocodone 10 mg-acetaminophen 1 tab PO Q4H PRN Pain 03/01/19 12/19/23 12/18/23 History 325 mg tablet glucometer #1 ea 07/28/19 12/19/23 Unknown Rx glucometer strips #100 ea 07/28/19 12/19/23 Unknown Rx sennosides 8.6 mg-docusate sodium 1 tab PO BID #60 tabs 07/28/19 12/19/23 12/03/21 Rx 50 mg tablet diabetic shoes and inserts #1 ea 11/05/20 12/19/23 Unknown Rx pen needle, diabetic 31 gauge x #100 ea 03/05/21 12/19/23 Unknown Rx 3/16 (Comfort EZ [place]) Diabetic shoes with inserts #1 ea 05/22/21 12/19/23 Unknown Rx short cam boot to the right #1 ea 08/21/21 12/19/23 Unknown Rx calcium carbonate 200 mg PO TID 10/30/21 12/19/23 12/19/23 History furosemide 40 mg tablet 40 mg PO DAILY 12/07/21 12/19/23 12/19/23 History acetaminophen 500 mg tablet 1,000 mg (2 x 500 mg) PO BID fever 02/26/22 12/19/23 Unknown Rx (Tylenol Extra Strength) 7 days #28 tabs foam bandage 4 X 4 (Optifoam) #100 ea 03/26/22 12/19/23 Unknown Rx PolymemAG (with silver) and Zoe #1 ea 04/01/22 12/19/23 Unknown Rx SAP OWLS boot #1 ea 09/01/22 12/19/23 Unknown Rx Hydrafera Blue READY Antibacterial #1 ea 10/27/22 12/19/23 Unknown Rx Foam Dressing and Zoe SAP atorvastatin 20 mg tablet 20 mg PO DAILY #30 tabs 09/30/23 12/19/23 12/19/23 Rx carvedilol 12.5 mg tablet 12.5 mg PO BID #60 tabs 09/30/23 12/19/23 12/19/23 Rx clopidogrel 75 mg tablet 75 mg PO DAILY #30 tabs 09/30/23 12/19/23 12/19/23 Rx insulin degludec 100 unit/mL (3 15 unit (0.15 mL) SUBCUT DAILY #15 09/30/23 12/19/23 12/19/23 Rx mL) subcutaneous pen (Tresiba mL FlexTouch U-100 insulin) lisinopril 10 mg tablet 10 mg PO DAILY #30 tabs 09/30/23 12/19/23 Unknown Rx nifedipine 60 mg tablet,extended 60 mg PO DAILY #30 tabs 09/30/23 12/19/23 12/19/23 Rx release pantoprazole 40 mg tablet,delayed 40 mg PO DAILY #30 tabs 09/30/23 12/19/23 Unknown Rx release tadalafil 10 mg tablet (Cialis) 10 mg PO DAILY PRN sexual activity 11/28/23 12/19/23 Unknown Rx #10 tabs Diabetic shoes with inserts and #1 ea 12/02/23 12/19/23 Unknown Rx toe filler aspirin 81 mg tablet,delayed 81 mg PO DAILY HEART HEALTH 12/19/23 12/19/23 12/19/23 History release levothyroxine 125 mcg tablet 125 mcg PO DAILY 12/19/23 12/19/23 12/19/23 History Allergies Allergy/AdvReac Type Severity Reaction Status Date / Time nitrofurantoin Allergy unknown Verified 12/19/23 15:03 clavulanic acid AdvReac Severe Nausea Verified 12/19/23 15:03 [From Augmentin] amoxicillin [From Augmentin] AdvReac Intermediate Nausea Verified 12/19/23 15:03 PFSH Acute PFSH: Medical History Anginal equivalent ESRD (end stage renal disease) Pulmonary edema Acute respiratory distress Hypertensive emergency HTN (hypertension) Syrinx of spinal cord Protrusion of thoracic intervertebral disc Diabetes mellitus, type II CAD (coronary artery disease) Cardiac stent x1 Malignant hypertension Peripheral vascular disease Polyneuropathy Acquired spondylolisthesis HPTH (hyperparathyroidism) Vitamin D deficiency Chronic hypertension PAD (peripheral artery disease) With critical lower limb ischemia 06/2019 requiring intervention with CSI atherectomy of the SFA followed by [id number] balloon angioplasty, CSI atherectomy of the tibial peroneal trunk and left anterior tibial followed by balloon angioplasty, reconstruction of the arch of the foot which was completely occluded. End stage renal failure on dialysis Acquired hypothyroidism Environmental and seasonal allergies Anxiety and depression Erectile dysfunction due to diseases classified elsewhere Dyslipidemia Surgical History Peritoneal dialysis catheter in place removed 08/2019, due to be replaced 07/24/2020 Amputated toe of left foot due to gangrene 06/27/2019, with subsequent removal of all toes left foot 08/2019 at [place], [place] History of repair of right rotator cuff History of toe surgery Left great toe debridement History of heart artery stent Family History Brother Cancer Mother Cancer Father Heart disease Social History Smoking and tobacco/nicotine status: tobacco/nicotine user, details unknown Second hand smoke exposure: No Alcohol intake: never Substance/Drug Use: never Caregiver/support person: No Lives independently: Yes Housing: House Marital status: Legally Highest education level completed: Some College, No Degree service: No Current occupational status: disabled Pets and animals: Yes Do you think of yourself as: Straight/Heterosexual Current gender identity: Male Data 12/21/23 05:14 12/21/23 05:30 Other Labs: Laboratory Last Values WBC 9.12 10^3/uL (3.29-11.43) 12/21/23 05:14 RBC 3.03 10^6/uL (3.85-5.65) L 12/21/23 05:14 Hgb 9.20 g/dL (11.27-16.99) L 12/21/23 05:14 Hct 29.0 % (37-53) L 12/21/23 05:14 MCV 95.7 fl (82-101) 12/21/23 05:14 MCH 30.4 pg (27-33) 12/21/23 05:14 MCHC 31.7 g/dL (30-55) 12/21/23 05:14 RDW 13.0 % (12.1-15.1) 12/21/23 05:14 Plt Count 257 10^3/cmm (157-399) 12/21/23 05:14 MPV 10.8 fL (7.4-10.4) H 12/21/23 05:14 Neut % (Auto) 71.2 % 12/21/23 05:14 Lymph % (Auto) 16.2 % 12/21/23 05:14 [place] % (Auto) 6.5 % 12/21/23 05:14 Eos % (Auto) 4.3 % 12/21/23 05:14 Baso % (Auto) 1.5 % 12/21/23 05:14 Neut # (Auto) 6.49 10^3/uL (1.8-7.7) 12/21/23 05:14 Lymph # (Auto) 1.5 10^3/uL (0.8-4.8) 12/21/23 05:14 [place] # (Auto) 0.6 10^3/uL (0.2-0.9) 12/21/23 05:14 Eos # (Auto) 0.4 10^3/uL (0.0-0.8) 12/21/23 05:14 Baso # (Auto) 0.1 10^3/uL (0.0-0.1) 12/21/23 05:14 Nucleated RBC % (auto) 0 % 12/21/23 05:14 Nucleated RBCs # 0.0 /100WBC 12/21/23 05:14 PT 14.20 SECONDS (12.1-14.9) 12/19/23 15:26 INR 1.07 (0.8-1.2) 12/19/23 15:26 APTT 44.5 SECONDS (23.9-36.7) H 12/21/23 13:28 Sodium 137 mmol/L (136-145) 12/21/23 05:30 Potassium 4.1 mmol/L (3.5-5.1) 12/21/23 05:30 Chloride 99 mmol/L (98-107) 12/21/23 05:30 Carbon Dioxide 24 mmol/L (22-29) 12/21/23 05:30 Anion Gap 18.1 (5-19) 12/21/23 05:30 BUN 23 mg/dL (6-20) H 12/21/23 05:30 Creatinine 5.7 mg/dL (0.7-1.2) H* 12/21/23 05:30 GFR Calculation 10.3 mL/min (90-130) L 12/21/23 05:30 Glucose 94 mg/dL (65-115) 12/21/23 05:30 POC Glucose 121 mg/dL (70-110) H 12/21/23 17:11 Estimat Average Glucose 94 12/19/23 15:26 Hemoglobin A1c 4.9 % (4.0-6.0) 12/19/23 15:26 Calculated Osmolality 287 mOsm/kg (285-295) 12/21/23 05:30 Lactic Acid 1.3 mmol/L (0.5-2.2) 12/19/23 17:37 Uric Acid 5.4 mg/dL (3.4-7.0) 12/19/23 17:28 Calcium 9.0 mg/dL (8.5-10.5) 12/21/23 05:30 Phosphorus 2.7 mg/dL (2.5-4.5) 12/21/23 05:30 Magnesium 2.0 mg/dL (1.7-2.3) 12/21/23 05:30 Iron 54 ug/dL (59-158) L 12/20/23 02:03 TIBC 138 mcg/dl 12/20/23 02:03 % Saturation 39.1 % (20-50) 12/20/23 02:03 Unsat Iron Binding 84 ug/dL (112-347) L 12/20/23 02:03 Ferritin 1764 ng/mL (30-400) H 12/20/23 02:03 Total Bilirubin 0.4 mg/dL (0.15-1.2) 12/21/23 05:30 AST 9 U/L (0-40) 12/21/23 05:30 ALT 10 U/L (0-41) 12/21/23 05:30 Alkaline Phosphatase 103 U/L (40-130) 12/21/23 05:30 Troponin T Baseline 155 ng/L (0-15) H* 12/19/23 15:26 Troponin T 120 Minute 168.5 ng/L (0-15) H 12/19/23 17:28 Delta Troponin T 13.5 ABS# (0-10) H* 12/19/23 17:28 Troponin T Hi Sens 6Hr 195.2 ng/L (0-15) H 12/19/23 22:21 Troponin T Hi Sens 6Hr Delta 40.2 ng/L (0-12) H* 12/19/23 22:21 C-Reactive Protein 13.5 mg/L (0.0-4.9) H 12/19/23 17:28 NT-Pro-B Natriuret Pep > 34318 pg/mL (0-125) H 12/20/23 02:03 Total Protein 6.6 g/dL (6.6-8.7) 12/21/23 05:30 Albumin 4.5 g/dL (3.5-5.2) 12/21/23 05:30 Globulin 2.1 g/dL (1.3-4.6) 12/21/23 05:30 Triglycerides 109 mg/dL (0-150) 12/19/23 17:28 Cholesterol 127 mg/dL (0-200) 12/19/23 17:28 LDL Cholesterol, Calc 76 mg/dL (50-129) 12/19/23 17: HDL Cholesterol 29 mg/dL (60-100) L 12/19/23 17:28 LDL/HDL Ratio 2.62 RATIO (0.00-3.22) 12/19/23 17: Cholesterol/HDL Ratio 4.38 mg/dL (1.0-5.00) 12/19/23 17:28 Lipase 11 U/L (13-60) L 12/19/23 15:26 25-OH Vitamin D Total 13 ng/mL (30-100) L 12/20/23 02:03 Procalcitonin 0.19 ng/mL (0-0.5) 12/19/23 17:28 TSH 2.86 uIU/mL (0.27-4.20) 12/19/23 17:28 PTH Intact 399.1 pg/mL (15-65) H 12/20/23 02:03 Calcium (PTH Intact) 8.6 mg/dL (8.5-10.5) 12/20/23 02:03 Coronavirus (PCR) Negative (Negative) 12/19/23 22:15 Hep Bs Antigen Non-reactive (Nonreactive) 12/20/23 02:03 Hep Bs Antibody < 3.5 (11.5-1000) L 12/20/23 02:03 Hepatitis C Antibody Non-reactive (Nonreactive) 12/20/23 02:03 Influenza A (PCR) Negative (Negative) 12/19/23 22:15 Influenza Type B (PCR) Negative (Negative) 12/19/23 22:15 RSV (PCR) Negative (Negative) 12/19/23 22:15 Other data: EKG from 12/21/2023 Normal sinus rhythm with a first-degree AV block. Poor R wave progression. Nonspecific IVCD. Diffuse nonspecific ST-T changes. 10/19/2017 Carotid doppler CONCLUSIONS Atherosclerotic plaque causing:. 41 to 59% stenosis of the right internal carotid artery. 41 to 59% stenosis of the left internal carotid artery. 07/22/2020 Myocardial perfusion imaging IMPRESSIONS 1. Abnormal myocardial perfusion imaging with partially reversible perfusion defect in inferior and apical inferior soto. This is consistent with small sized prior infarct with rae-infarct ischemia. 2. LV systolic function is normal. 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 Intervention attempt failed. CT chest IMPRESSION: 1. Multifocal patchy bilateral pulmonary ground-glass opacities. Differential includes pneumonia and/or pulmonary edema. 2. There are bilateral pleural effusions with underlying compressive atelectasis or infiltrate. 3. Multivessel atherosclerotic disease which involves the coronary arteries. Echo Complete CONCLUSIONS Mildly increased left ventricular cavity size. Left ventricular ejection fraction is estimated at 50 %. No regional wall motion abnormalities. In the presence of atrial fibrillation diastolic function cannot be assessed accurately. Moderately increased left atrial size. Moderately thickened mitral valve. Moderate mitral annular calcification. Moderate mitral valve regurgitation. Severe aortic valve calcification. Moderate aortic valve stenosis, mean gradient 11 mmHg, CHAIM 1.5 cm squared. Trace aortic valve regurgitation. Pleural effusion noted. There is no pericardial effusion. Right atrial pressure is around 10 mm of mercury. A&P Assessment and plan (1) NSTEMI (non-ST elevated myocardial infarction): Patient has chronically elevated troponins. History of coronary artery disease with prior stenting. EKG with changes in the lateral leads. Currently patient is without chest pain. Patient is on heparin drip. Patient's chest pain was across his chest. The clinical features may suggest unstable angina complicated with heart failure. EKG changes are nonspecific. The troponin T was elevated with a positive delta. (2) CAD (coronary artery disease): Patient states he has a history of coronary artery disease with stenting x 2. Patient does not have any chest pain at this time but will continue to monitor for acute EKG changes. Qualifiers: Associated angina: without angina Coronary Disease-Associated Artery/Lesion type: [place] artery [place] vs. transplanted heart: [place] heart Qualified Code(s): I25.10 - Atherosclerotic heart disease of [place] coronary artery without angina pectoris (3) CHF exacerbation: Qualifiers: Heart failure type: diastolic Qualified Code(s): I50.33 - Acute on chronic diastolic (congestive) heart failure (4) Chronic hypertension: (5) Dyslipidemia: (6) PAD (peripheral artery disease): Asymptomatic at this time. Patient states he has had peripheral intervention recently at another facility. Hospital in [facility]. Will try to get these records. 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 Consider follow-up echocardiogram in a year. Qualifiers: Cardiac valve disease etiology: etiology unspecified Qualified Code(s): I35.0 - Nonrheumatic aortic (valve) stenosis (8) Mitral regurgitation: Moderate regurgitation , currently asymptomatic. Continue the current treatment measures. Qualifiers: Cardiac valve disease etiology: etiology unspecified Qualified Code(s): I34.0 - Nonrheumatic mitral (valve) insufficiency Plan Due to elevated troponin levels with EKG changes hx of CAD with stenting, in the setting of chest pain and shortness of breath suspician is high for coronary artery ischemia. We have recommended patient undergo a left heart cath. We will coordinate the cardiac catheterization with the nephrology. May be appropriate to have the dialysis after the procedure. Thank you, Dr. Vásquez, for allowing us to take care of this very pleasant 58 year old gentleman. Coding Level of Care Code 97287 Diagnoses NSTEMI (non-ST elevated myocardial infarction) I21.4 Coronary artery disease involving [place] coronary artery of [place] heart without angina pectoris I25.10 Associated angina: without angina Coronary Disease-Associated Artery/Lesion type: [place] artery [place] vs. transplanted heart: [place] heart Acute on chronic diastolic congestive heart failure I50.33 Heart failure type: diastolic Chronic hypertension I10 Dyslipidemia E78.5 PAD (peripheral artery disease) I73.9 Aortic valve stenosis, etiology of cardiac valve disease unspecified I35.0 Cardiac valve disease etiology: etiology unspecified Mitral valve insufficiency, unspecified etiology I34.0 Cardiac valve disease etiology: etiology unspecified
--- NOTE | 2023-12-21 13:13 | USCV_ITS ---
Christiano Kearns Age: 58 Gender: M : 1965 Exam Date: 12/21/2023 15:22 Ordering Phys: Hilda Dubose NP Technologist: Exam Location: [facility] [place] Indication: cca disease Risk Factors: Previous Vascular Surgery: Right Brachial BP: / Left Brachial BP: / Right Left Velocity (cm/s) Spectral Plaque Velocity (cm/s) Spectral Plaque Syst/Diast Broadening Syst/Diast Broadening 68.50/ 21.90 Prox CCA 73.90 / 27.30 69.80/ 21.90 Hetro Mid CCA 79.10 / 24.80 Hetro 58.20/ 19.30 Hetro Distal CCA 52.00 / 20.70 Hetro 74.50/ 23.00 Hetro Prox ICA 53.10 / 22.30 Hetro 97.20/ 38.80 Hetro Mid ICA 85.50 / 30.40 Hetro 106.90/38.40 Distal ICA 105.50/ 50.60 69.30 ECA 91.40 1.80 ICA/CCA 2.00 Antegrade Vertebral Antegrade 64.10/ 14.80 cm/s 45.90/ 11.80 cm/s Bi Subclavian Bi 79.10 84.90 CONCLUSIONS Right ICA stenosis <50%. Moderate atheromatous plaque right carotid bulb/ICA. Left ICA stenosis <50%. Moderate atheromatous plaque left carotid bulb/ICA. Intimal thickening in the common carotid arteries and internal carotid arteries bilaterally Normal antegrade Doppler flow noted in the right vertebral artery. Normal antegrade Doppler flow noted in the left vertebral artery. Jaime Mercedes MD (Electronically Signed) Final Date: 21 December 2023 16:11 S
[2023-12-21 14:01] LABS: Partial Thromboplastin Time 44.5 SECONDS (23.9-36.7)
--- NOTE | 2023-12-21 16:23 | P.PN_ITS ---
Subjective 2 Subjective: Patient was seen this morning, he sitting up in a chair, his breathing has improved, he does report intermittent chest discomfort, discussed echocardiogram results, discussed that as he continues to have chest discomfort, he is on a heparin drip, he has received sessions of dialysis to help with fluid overload but continues to have chest discomfort we will discuss case with cardiology, spoke to cardiology, Dr. Gr, need for cardiac catheterization, cardiology will consult Vitals/I&O/Wt Last Vital Signs Temp 96.4 F L 12/21/23 08:00 Pulse 90 12/21/23 12:50 Resp 20 H 12/21/23 12:50 BP 186/60 12/21/23 12:30 Pulse Ox 91 12/21/23 12:50 O2 Del Method Room Air 12/21/23 09:47 O2 Flow Rate 3 12/20/23 10:11 FiO2 21 12/19/23 21:37 12/21/23 12/21/23 12/21/23 06:59 14:59 22:59 Intake Total 295.35 / 2803.70 412.9 / 412.9 Balance 295.35 / -172.30 412.9 / 412.9 Weight last 48 hrs Weight 96 kg Weight 98 kg Weight 96 kg Weight 97.5 kg Physical Exam 2 Const: COMMON NORMALS: no acute distress and patient oriented x3 Resp: COMMON NORMALS: normal respiratory effort, No retractions, No use of accessory muscles and clear to auscultation bilaterally AUSCULTATION: clear to auscultation bilaterally Cardio: COMMON NORMALS: regular rate, regular rhythm, S1 normal heart sound present and S2 normal heart sound present RATE: regular rate RHYTHM: r egular rhythm HEART SOUNDS: S1 normal heart sound present and S2 normal heart sound present GI: COMMON NORMALS: Normal to inspection, nondistended, normoactive bowel sounds present and non-tender Extremity: COMMON NORMALS: no pedal edema Neuro: COMMON NORMALS: patient oriented x3 Psych: COMMON NORMALS: mental status grossly normal Data 12/21/23 05:14 12/21/23 05:30 Micro: Microbiology 12/19/23 17:33 Blood Culture - Preliminary Blood NEGATIVE TO DATE 12/19/23 17:28 Blood Culture - Preliminary Blood NEGATIVE TO DATE A&P Assessment and plan (1) HTN (hypertension): Qualifiers: Hypertension type: essential hypertension Qualified Code(s): I10 - Essential (primary) hypertension (2) CAD (coronary artery disease): Qualifiers: Coronary Disease-Associated Artery/Lesion type: [place] artery [place] vs. 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 Diabetes mellitus complication status: with circulatory complication Diabetes mellitus complication detail: with peripheral angiopathy with gangrene Qualified Code(s): E11.52 - Type 2 diabetes mellitus with diabetic peripheral angiopathy with gangrene (6) GERD (gastroesophageal reflux disease): (7) End stage renal failure on dialysis: (8) Acute hypoxic respiratory failure: (9) CHF exacerbation: Qualifiers: Heart failure type: diastolic Qualified Code(s): I50.33 - Acute on chronic diastolic (congestive) heart failure (10) Chest pain: Qualifiers: Chest pain type: unspecified Qualified Code(s): R07.9 - Chest pain, unspecified (11) NSTEMI (non-ST elevated myocardial infarction): (12) Pneumonia: Plan Acute hypoxic respiratory failure ? Likely secondary to systolic CHF exacerbation, CT chest showing bilateral pleural effusions, BNP over 60,000 ? Concerns for bilateral pleural effusions -Has concerns for left lower lobe pneumonia, given leukocytosis complains of cough ? Plan ? Monitor in ICU ? Will consider BiPAP based on clinical progress ? Status post 2 sessions of dialysis ? Continue Rocephin ? Continue azithromycin ? Blood cultures ? Monitor respiratory status closely Chest pain, NSTEMI ? Initial troponin 155, 120-minute 168.5 ? EKG T wave inversions in anterior leads, ? Plan ? Continue aspirin, statin, Plavix ? Status post 2 sessions of dialysis for fluid overload continues to have chest discomfort ? Heparin drip ? Cardiac echo CONCLUSIONS Mildly increased left ventricular cavity size. Left ventricular ejection fraction is estimated at 50 %. No regional wall motion abnormalities. In the presence of atrial fibrillation diastolic function cannot be assessed accurately. Moderately increased left atrial size. Moderately thickened mitral valve. Moderate mitral annular calcification. Moderate mitral valve regurgitation. Severe aortic valve calcification. Moderate aortic valve stenosis, mean gradient 11 mmHg, CHAIM 1.5 cm squared. Trace aortic valve regurgitation. Pleural effusion noted. There is no pericardial effusion. Right atrial pressure is around 10 mm of mercury. ? Monitor for chest pain ? Cardiology consulted plan for cardiac catheterization tomorrow Type 2 diabetes mellitus, low-dose sliding scale End-stage renal disease on dialysis Hypothyroidism continue levothyroxine Peripheral arterial disease, no complaints of lower extremity pain Full code ? Heparin drip for DVT prophylaxis, ? Protonix for GI prophylaxis Spoke to patient, spoke to nursing staff, spoke to cardiology, continue heparin drip monitor for chest pain, continue IV antibiotics, n.p.o. midnight, for cardiac stress test tomorrow Attestations 2 Medical Necessity Statement*: Patient requires hospitalization for persistent chest pain, requiring cardiac catheterization tomorrow pneumonia requiring IV antibiotics, fluid overload requiring dialysis Diagnoses Essential hypertension I10 Hypertension type: essential hypertension Coronary artery disease involving [place] coronary artery of [place] heart without angina pectoris I25.10 Coronary Disease-Associated Artery/Lesion type: [place] artery [place] vs. transplanted heart: [place] heart Associated angina: without angina PAD (peripheral artery disease) I73.9 Dyslipidemia E78.5 Type 2 diabetes mellitus with diabetic peripheral angiopathy and gangrene, without long-term current use of insulin E11.52 Diabetes mellitus care home insulin use: without watermelon harvesting supervisor use Diabetes mellitus complication status: with circulatory complication Diabetes mellitus complication detail: with peripheral angiopathy with gangrene GERD (gastroesophageal reflux disease) K21.9 End stage renal failure on dialysis N18.6; Z99.2 Acute hypoxic respiratory failure J96.01 Acute on chronic diastolic congestive heart failure I50.33 Heart failure type: diastolic Chest pain R07.9 Chest pain type: unspecified NSTEMI (non-ST elevated myocardial infarction) I21.4 Pneumonia J18.9
[2023-12-21 17:14] LABS: Glucose Point of Care 121 mg/dL (70-110)
[2023-12-21] MEDS: pantoprazole 40 mg SDV IVP (19:38)
[2023-12-21] MEDS: cefTRIAXone 1,000 mg SDV 1000 MG IVP (19:40)
[2023-12-21] MEDS: AZITHROMYCIN ADD-Vantage 500 MG in 0.9% NaCl ADD-Vantage 250 ML 250 MG IV (19:45)
[2023-12-21] MEDS: heparin drip 25,000 UNIT/500 ML PREMIX 25 UNIT IV (19:48)
[2023-12-21] MEDS: atorvastatin 40 mg Tablet PO (21:12)
[2023-12-21] MEDS: zolpidem 5 mg Tablet 10 MG PO (21:49)
[2023-12-21 22:00] LABS: Partial Thromboplastin Time 58.5 SECONDS (23.9-36.7)
[2023-12-22] VITALS (30 sets, daily range): BP systolic 90–188; BP diastolic 18–104; PULSE 67–90; RESP 12–29; TEMP 36.9–37.3; O2SAT 86–100; BMI 31.7
--- NOTE | 2023-12-22 01:45 | PC.NURSE ---
Intermittent bradycardia noted, Dr. Sorensen made aware. Patient asymptomatic sleeping at time, had been given ambien for sleep prior. vitals stable except intermittent low rate.
[2023-12-22] MEDS: morphine 4 mg/mL SDV 1 mL 2 MG IVP (03:40)
[2023-12-22 05:03] LABS: Basophils # 0.1 10^3/uL (0.0-0.1); Basophils % 1.4 %; Eosinophils # 0.4 10^3/uL (0.0-0.8); Eosinophils % 4.5 %; Hematocrit 27.2 % (37-53); Lymphocytes # 1.4 10^3/uL (0.8-4.8); Lymphocytes % 14.4 %; Mean Corpuscular HGB Conc 33.1 g/dL (30-55); Mean Corpuscular Hemoglobin 31.7 pg (27-33); Mean Corpuscular Volume 95.8 fl (82-101); Mean Platelet Volume 10.9 fL (7.4-10.4); Monocytes # 0.8 10^3/uL (0.2-0.9); Monocytes % 8.3 %; Neutrophils # 6.75 10^3/uL (1.8-7.7); Neutrophils % 71.1 %; Nucleated Red Blood Cells % 0 %; Platelet Count 225 10^3/cmm (157-399); Red Blood Count 2.84 10^6/uL (3.85-5.65); Red Cell Distribution Width 13.1 % (12.1-15.1)
[2023-12-22 05:17] LABS: Partial Thromboplastin Time 59.9 SECONDS (23.9-36.7)
[2023-12-22 05:27] LABS: Alanine Aminotransferase 7 U/L (0-41); Alkaline Phosphatase 85 U/L (40-130); Anion Gap 20.5 (5-19); Aspartate Amino Transferase 9 U/L (0-40); Blood Urea Nitrogen 37 mg/dL (6-20); Calcium 8.8 mg/dL (8.5-10.5); Carbon Dioxide 24 mmol/L (22-29); Chloride 98 mmol/L (98-107); Creatinine Clr Calc Pharmacy 12.5902; Globulin 2.4 g/dL (1.3-4.6); Glomerular Filtration Rate 7.6 mL/min (90-130); Glucose 104 mg/dL (65-115); Magnesium 1.9 mg/dL (1.7-2.3); Osmolality Calculated 295 mOsm/kg (285-295); Phosphorus 3.8 mg/dL (2.5-4.5); Potassium 4.5 mmol/L (3.5-5.1); Sodium 138 mmol/L (136-145); Total Bilirubin 0.3 mg/dL (0.15-1.2); Total Protein 6.4 g/dL (6.6-8.7)
[2023-12-22 05:56] LABS: Glucose Point of Care 129 mg/dL (70-110)
[2023-12-22 07:43] LABS: Glucose Point of Care 109 mg/dL (70-110)
--- NOTE | 2023-12-22 08:15 | PM.PN ---
Subjective Subjective: The patient was seen and examined. He has no new complaints. He is for cardiac cath today. He denies shortness of breath or headaches or itching or cramps. Decreased chest pain. Medications: Reviewed: Yes Medication Review Details: Current Medications Acetaminophen (Acetaminophen 325 Mg Tablet) 650 mg PO Q6H PRN PRN Reason: Mild/Mod Pain Or Temp >/= 101 Last Admin: 12/20/23 22:44 Dose: 650 mg Albuterol/Ipratropium (Ipratropium-Albuterol 3 Ml Neb) 3 ml INHALATION Q6H PRN PRN Reason: SHORTNESS OF BREATH Aspirin (Aspirin 81 Mg Ec Tablet) 81 mg PO DAILY THEA Last Admin: 12/21/23 08:16 Dose: 81 mg Atorvastatin Calcium (Atorvastatin 40 Mg Tablet) 40 mg PO BEDTIME THEA Last Admin: 12/21/23 21:12 Dose: 40 mg Carvedilol (Carvedilol 12.5 Mg Tablet) 12.5 mg PO BID THEA Last Admin: 12/21/23 17:15 Dose: 12.5 mg Ceftriaxone Sodium (Ceftriaxone 1,000 Mg Sdv) 1,000 mg IVP Q24H THEA; Protocol Last Admin: 12/21/23 19:40 Dose: 1,000 mg Clopidogrel Bisulfate (Clopidogrel 75 Mg Tablet) 75 mg PO DAILY THEA Last Admin: 12/21/23 08:16 Dose: 75 mg Ergocalciferol (Ergocalciferol (Vitamin D2) 50,000 Unit Capsule) 50,000 unit PO Q7D THEA Last Admin: 12/20/23 12:24 Dose: 50,000 unit Glucagon (Glucagon 1 Mg/Ml Kit 1 Ml) 1 mg IM ONCE PRN; Protocol PRN Reason: Adult Acute Hypoglycemia Nursing Prot. Heparin Sodium (Porcine) (Heparin 5,000 Unit/Ml Inj 1 Ml) 0 unit IVP PRN PRN; Protocol PRN Reason: Heparin Weight Based Protocol -Subsequent Bolus Azithromycin 500 mg/ Sodium (Chloride) 250 mls @ 250 mls/hr IV Q24H THEA; Protocol Last Infusion: 12/21/23 20:48 Dose: Infused Dextrose (D5w) 500 mls @ 0 mls/hr IV ONCE PRN; Protocol PRN Reason: Adult Acute Hypoglycemia Prot Dextrose (D10w) 125 mls @ 750 mls/hr IV PRN PRN; Protocol PRN Reason: Adult Acute Hypoglycemia Nursing Protocol Dextrose (D10w) 250 mls @ 1,000 mls/hr IV PRN PRN; Protocol PRN Reason: Adult Acute Hypoglycemia Nursing Protocol Heparin Sodium/Sodium Chloride (Heparin Drip) 25,000 unit in 500 mls @ 0 mls/hr IV CONT THEA; Protocol Last Titration: 12/22/23 05:50 Dose: 12.82 unit/kg/hr, 25 mls/hr Epoetin Pancho 8,000 unit/ N/A 0.4 mls @ 0 mls/hr HE DIALYSIS COUNT INCLUDES THE [facility] Last Infusion: 12/20/23 17:30 Dose: Infused Insulin Human Lispro (Insulin Lispro 100 Unit/1 Ml) 0 unit SUBCUT WM&BEDTIME THEA; Protocol Last Admin: 12/21/23 21:07 Dose: Not Given Levothyroxine Sodium (Levothyroxine 125 Mcg Tablet) 125 mcg PO QAM THEA Last Admin: 12/22/23 05:53 Dose: Not Given Losartan Potassium (Losartan 50 Mg Tablet) 50 mg PO DAILY COUNT INCLUDES THE [facility] Last Admin: 12/21/23 08:16 Dose: 50 mg Morphine Sulfate (Morphine 4 Mg/Ml Sdv 1 Ml) 2 mg IVP Q4H PRN PRN Reason: SEVERE PAIN Last Admin: 12/22/23 03:40 Dose: 2 mg Ondansetron HCl (Ondansetron 2 Mg/Ml Sdv 2 Ml) 4 mg IVP Q8H PRN PRN Reason: vomiting, or N/V if npo Pantoprazole Sodium (Pantoprazole 40 Mg Sdv) 40 mg IVP Q24H COUNT INCLUDES THE [facility] Last Admin: 12/21/23 19:38 Dose: 40 mg Zolpidem Tartrate (Zolpidem 5 Mg Tablet) 10 mg PO BEDTIME PRN PRN Reason: sleep Last Admin: 12/21/23 21:49 Dose: 10 mg Vitals/I&O/Wt Last Vital Signs Temp 97.9 F 12/21/23 16:05 Pulse 69 12/22/23 07:49 Resp 18 12/22/23 07:49 BP 169/56 12/22/23 07:00 Pulse Ox 98 12/22/23 07:49 O2 Del Method Nasal Cannula 12/22/23 07:49 O2 Flow Rate 3 12/22/23 07:49 FiO2 21 12/19/23 21:37 12/21/23 12/22/23 12/22/23 22:59 06:59 14:59 Intake Total 755 / 1167.9 250.834 / 1418.734 Output Total 100 / 100 Balance 655 / 1067.9 250.834 / 1318.734 Weight last 48 hrs Weight 97.6 kg Weight 96 kg Physical Exam Narrative: comfortable in bed using nasal cannula oxygen. Vital signs noted. HEENT normocephalic atraumatic. Neck is supple. Lungs-good air movement b/l. Heart regular. Abdomen is soft positive bowel sounds. Extremities bilateral 1+ edema poor pulses. Anterior chest wall permacath. Neuro awake alert oriented x 3 Data 12/22/23 04:29 12/22/23 04:29 A&P Assessment and plan (1) End stage renal failure on dialysis: 58-year-old gentleman ESRD CAD peripheral arterial disease status post TMA diabetes obesity. Patient here with hypertension volume overload and pleural effusions on imaging. 1. Patient was seen by cardiology who did not feel that he is having an ST elevation AK. Though troponin is elevated at 1 55-1 68 delta troponin only mildly elevated at 13.5. - echo. EF at 50% positive A-fib, moderate mitral valve regurgitation, severe aortic valve calcification with moderate aortic valve stenosis, right atrial pressure of 10 mmHg. Cardiology evaluation -Patient has moderate mitral regurgitation and severe aortic stenosis to be evaluated by cardiology -for cardiac cath today 2. ESRD -plan repeat hd today -Normal phosphorus. PTH 399 with use of vitamin D analog- once. otherwise vitd weekly 3.The patient is on antibiotics for possible pneumonia Rocephin and azithromycin. 4. Hypertension -remove volume on dialysis. coreg 12.5 bid, losartan 5. Diabetic control per medicine. 6. anemia- ferritin 1764, tsat 39%- no iv iron, use VAN 7, replace vit d 8. Hypothyroidism on levothyroxine. The patient was seen and examined using audiovisual equipment with the aid of a nurse. The patient consents to telehealth and to hemodialysis. Case discussed in detail with the patient his nurse . Plan See above. Attestations Medical Necessity Statement*: esrd, cad for cardiac cath today Time Spent in Patient Care: 16 - 35 minutes (>than 50% of time spent in counselling and/or direct pt care on unit). Coding Level of Care Code Acute Code for Chg Fwd Diagnoses End stage renal failure on dialysis N18.6; Z99.2
--- NOTE | 2023-12-22 08:56 | PM.PN ---
Subjective Subjective: Patient is feeling better. The shortness of breath has significantly improved. Denies any chest pain or palpitations. No new arrhythmias on the monitor. Medications: Medication Review Details: Current Medications Acetaminophen (Acetaminophen 325 Mg Tablet) 650 mg PO Q6H PRN PRN Reason: Mild/Mod Pain Or Temp >/= 101 Last Admin: 12/20/23 22:44 Dose: 650 mg Albuterol/Ipratropium (Ipratropium-Albuterol 3 Ml Neb) 3 ml INHALATION Q6H PRN PRN Reason: SHORTNESS OF BREATH Aspirin (Aspirin 81 Mg Ec Tablet) 81 mg PO DAILY [facility] Last Admin: 12/21/23 08:16 Dose: 81 mg Atorvastatin Calcium (Atorvastatin 40 Mg Tablet) 40 mg PO BEDTIME THEA Last Admin: 12/21/23 21:12 Dose: 40 mg Carvedilol (Carvedilol 12.5 Mg Tablet) 12.5 mg PO BID [facility] Last Admin: 12/21/23 17:15 Dose: 12.5 mg Ceftriaxone Sodium (Ceftriaxone 1,000 Mg Sdv) 1,000 mg IVP Q24H THEA; Protocol Last Admin: 12/21/23 19:40 Dose: 1,000 mg Clopidogrel Bisulfate (Clopidogrel 75 Mg Tablet) 75 mg PO DAILY [facility] Last Admin: 12/21/23 08:16 Dose: 75 mg Ergocalciferol (Ergocalciferol (Vitamin D2) 50,000 Unit Capsule) 50,000 unit PO Q7D THEA Last Admin: 12/20/23 12:24 Dose: 50,000 unit Glucagon (Glucagon 1 Mg/Ml Kit 1 Ml) 1 mg IM ONCE PRN; Protocol PRN Reason: Adult Acute Hypoglycemia Nursing Prot. Heparin Sodium (Porcine) (Heparin 5,000 Unit/Ml Inj 1 Ml) 0 unit IVP PRN PRN; Protocol PRN Reason: Heparin Weight Based Protocol -Subsequent Bolus Azithromycin 500 mg/ Sodium (Chloride) 250 mls @ 250 mls/hr IV Q24H THEA; Protocol Last Infusion: 12/21/23 20:48 Dose: Infused Dextrose (D5w) 500 mls @ 0 mls/hr IV ONCE PRN; Protocol PRN Reason: Adult Acute Hypoglycemia Prot Dextrose (D10w) 125 mls @ 750 mls/hr IV PRN PRN; Protocol PRN Reason: Adult Acute Hypoglycemia Nursing Protocol Dextrose (D10w) 250 mls @ 1,000 mls/hr IV PRN PRN; Protocol PRN Reason: Adult Acute Hypoglycemia Nursing Protocol Heparin Sodium/Sodium Chloride (Heparin Drip) 25,000 unit in 500 mls @ 0 mls/hr IV CONT THEA; Protocol Last Titration: 12/22/23 05:50 Dose: 12.82 unit/kg/hr, 25 mls/hr Epoetin Pancho 5,000 unit/ N/A 0.25 mls @ 0 mls/hr HE DIALYSIS THEA Insulin Human Lispro (Insulin Lispro 100 Unit/1 Ml) 0 unit SUBCUT WM&BEDTIME THEA; Protocol Last Admin: 12/21/23 21:07 Dose: Not Given Levothyroxine Sodium (Levothyroxine 125 Mcg Tablet) 125 mcg PO QAM [facility]A Last Admin: 12/22/23 05:53 Dose: Not Given Losartan Potassium (Losartan 50 Mg Tablet) 50 mg PO DAILY [facility] Last Admin: 12/21/23 08:16 Dose: 50 mg Morphine Sulfate (Morphine 4 Mg/Ml Sdv 1 Ml) 2 mg IVP Q4H PRN PRN Reason: SEVERE PAIN Last Admin: 12/22/23 03:40 Dose: 2 mg Ondansetron HCl (Ondansetron 2 Mg/Ml Sdv 2 Ml) 4 mg IVP Q8H PRN PRN Reason: vomiting, or N/V if npo Pantoprazole Sodium (Pantoprazole 40 Mg Sdv) 40 mg IVP Q24H THEA Last Admin: 12/21/23 19:38 Dose: 40 mg Zolpidem Tartrate (Zolpidem 5 Mg Tablet) 10 mg PO BEDTIME PRN PRN Reason: sleep Last Admin: 12/21/23 21:49 Dose: 10 mg Vitals/I&O/Wt Last Vital Signs Temp 97.9 F 12/21/23 16:05 Pulse 69 12/22/23 07:49 Resp 18 12/22/23 07:49 BP 169/56 12/22/23 07:00 Pulse Ox 98 12/22/23 07:49 O2 Del Method Nasal Cannula 12/22/23 07:49 O2 Flow Rate 3 12/22/23 07:49 FiO2 21 12/19/23 21:37 12/21/23 12/22/23 12/22/23 22:59 06:59 14:59 Intake Total 755 / 1167.9 250.834 / 1418.734 Output Total 100 / 100 Balance 655 / 1067.9 250.834 / 1318.734 Weight last 48 hrs Weight 215 lb 2.738 oz Weight 211 lb 10.3 oz Physical Exam Narrative: GENERAL: The patient is alert and oriented times three. Not in any acute distress. HEENT: No significant pallor, icterus or lymphadenopathy.Oral cavity: There are no mucous membrane lesions. NECK: Trachea appears to be central. No masses noted. No JVD or thyromegaly appreciated. RESPIRATORY: Chest is symmetrical. No intercostals muscle retraction or any accessory muscle activation. There is no chest wall tenderness. Breath sounds are heard bilaterally. No rales or rhonchi heard. No evidence of any consolidation. BREASTS: Deferred. HEART: The heart sounds are normal. No S3 or S4. No significant murmurs. No pericardial rub ABDOMEN: No vessel pulsations or distention. No tenderness. No organomegaly appreciated. Bowel sounds are normally heard. : Deferred. RECTAL: Deferred. LYMPHATIC: No lymphadenopathy noted in the neck or groin. EXTREMITIES: No edema or cyanosis. No clubbing. Peripheral pulses are palpated in fairly good volume and amplitude MUSCULOSKELETAL: No acute joint deformities or swelling SKIN: There are no significant scars or skin rash noted. NEUROPSYCHIATRIC: The patient is alert and oriented x3. Appears to be in a good mood. No tremors or rigidity noted. Data 12/22/23 04:29 12/22/23 04:29 Other Labs: Laboratory Last Values WBC 9.50 10^3/uL (3.29-11.43) 12/22/23 04:29 RBC 2.84 10^6/uL (3.85-5.65) L 12/22/23 04:29 Hgb 9.00 g/dL (11.27-16.99) L 12/22/23 04:29 Hct 27.2 % (37-53) L 12/22/23 04:29 MCV 95.8 fl (82-101) 12/22/23 04:29 MCH 31.7 pg (27-33) 12/22/23 04: MCHC 33.1 g/dL (30-55) 12/22/23 04:29 RDW 13.1 % (12.1-15.1) 12/22/23 04:29 Plt Count 225 10^3/cmm (157-399) 12/22/23 04:29 MPV 10.9 fL (7.4-10.4) H 12/22/23 04:29 Neut % (Auto) 71.1 % 12/22/23 04:29 Lymph % (Auto) 14.4 % 12/22/23 04:29 Leon % (Auto) 8.3 % 12/22/23 04:29 Eos % (Auto) 4.5 % 12/22/23 04:29 Baso % (Auto) 1.4 % 12/22/23 04: Neut # (Auto) 6.75 10^3/uL (1.8-7.7) 12/22/23 04: Lymph # (Auto) 1.4 10^3/uL (0.8-4.8) 12/22/23 04: Leon # (Auto) 0.8 10^3/uL (0.2-0.9) 12/22/23 04:29 Eos # (Auto) 0.4 10^3/uL (0.0-0.8) 12/22/23 04:29 Baso # (Auto) 0.1 10^3/uL (0.0-0.1) 12/22/23 04:29 Nucleated RBC % (auto) 0 % 12/22/23 04: Nucleated RBCs # 0.0 /100WBC 12/22/23 04: PT 14.20 SECONDS (12.1-14.9) 12/19/23 15:26 INR 1.07 (0.8-1.2) 12/19/23 15:26 APTT 59.9 SECONDS (23.9-36.7) H 12/22/23 04:29 Sodium 138 mmol/L (136-145) 12/22/23 04:29 Potassium 4.5 mmol/L (3.5-5.1) 12/22/23 04:29 Chloride 98 mmol/L (98-107) 12/22/23 04:29 Carbon Dioxide 24 mmol/L (22-29) 12/22/23 04:29 Anion Gap 20.5 (5-19) H 12/22/23 04:29 BUN 37 mg/dL (6-20) H 12/22/23 04:29 Creatinine 7.4 mg/dL (0.7-1.2) H* 12/22/23 04:29 GFR Calculation 7.6 mL/min (90-130) L 12/22/23 04:29 Glucose 104 mg/dL (65-115) 12/22/23 04:29 POC Glucose 109 mg/dL (70-110) 12/22/23 07:38 Estimat Average Glucose 94 12/19/23 15:26 Hemoglobin A1c 4.9 % (4.0-6.0) 12/19/23 15:26 Calculated Osmolality 295 mOsm/kg (285-295) 12/22/23 04:29 Lactic Acid 1.3 mmol/L (0.5-2.2) 12/19/23 17:37 Uric Acid 5.4 mg/dL (3.4-7.0) 12/19/23 17:28 Calcium 8.8 mg/dL (8.5-10.5) 12/22/23 04:29 Phosphorus 3.8 mg/dL (2.5-4.5) 12/22/23 04:29 Magnesium 1.9 mg/dL (1.7-2.3) 12/22/23 04:29 Iron 54 ug/dL (59-158) L 12/20/23 02:03 TIBC 138 mcg/dl 12/20/23 02:03 % Saturation 39.1 % (20-50) 12/20/23 02:03 Unsat Iron Binding 84 ug/dL (112-347) L 12/20/23 02:03 Ferritin 1764 ng/mL (30-400) H 12/20/23 02:03 Total Bilirubin 0.3 mg/dL (0.15-1.2) 12/22/23 04:29 AST 9 U/L (0-40) 12/22/23 04:29 ALT 7 U/L (0-41) 12/22/23 04:29 Alkaline Phosphatase 85 U/L (40-130) 12/22/23 04:29 Troponin T Baseline 155 ng/L (0-15) H* 12/19/23 15:26 Troponin T 120 Minute 168.5 ng/L (0-15) H 12/19/23 17:28 Delta Troponin T 13.5 ABS# (0-10) H* 12/19/23 17:28 Troponin T Hi Sens 6Hr 195.2 ng/L (0-15) H 12/19/23 22:21 Troponin T Hi Sens 6Hr Delta 40.2 ng/L (0-12) H* 12/19/23 22:21 C-Reactive Protein 13.5 mg/L (0.0-4.9) H 12/19/23 17:28 NT-Pro-B Natriuret Pep > 41495 pg/mL (0-125) H 12/20/23 02:03 Total Protein 6.4 g/dL (6.6-8.7) L 12/22/23 04:29 Albumin 4.0 g/dL (3.5-5.2) 12/22/23 04: Globulin 2.4 g/dL (1.3-4.6) 12/22/23 04:29 Triglycerides 109 mg/dL (0-150) 12/19/23 17:28 Cholesterol 127 mg/dL (0-200) 12/19/23 17:28 LDL Cholesterol, Calc 76 mg/dL (50-129) 12/19/23 17:28 HDL Cholesterol 29 mg/dL (60-100) L 12/19/23 17:28 LDL/HDL Ratio 2.62 RATIO (0.00-3.22) 12/19/23 17: Cholesterol/HDL Ratio 4.38 mg/dL (1.0-5.00) 12/19/23 17:28 Lipase 11 U/L (13-60) L 12/19/23 15:26 25-OH Vitamin D Total 13 ng/mL (30-100) L 12/20/23 02:03 Procalcitonin 0.19 ng/mL (0-0.5) 12/19/23 17:28 TSH 2.86 uIU/mL (0.27-4.20) 12/19/23 17:28 PTH Intact 399.1 pg/mL (15-65) H 12/20/23 02:03 Calcium (PTH Intact) 8.6 mg/dL (8.5-10.5) 12/20/23 02:03 Coronavirus (PCR) Negative (Negative) 12/19/23 22:15 Hep Bs Antigen Non-reactive (Nonreactive) 12/20/23 02:03 Hep Bs Antibody < 3.5 (11.5-1000) L 12/20/23 02:03 Hepatitis C Antibody Non-reactive (Nonreactive) 12/20/23 02:03 Influenza A (PCR) Negative (Negative) 12/19/23 22:15 Influenza Type B (PCR) Negative (Negative) 12/19/23 22:15 RSV (PCR) Negative (Negative) 12/19/23 22:15 Blood Type B Positive 12/22/23 04:29 Rho(D) Type Rh positive 12/22/23 04:29 Antibody Screen Negative 12/22/23 04:29 A&P Assessment and plan (1) NSTEMI (non-ST elevated myocardial infarction): Patient's symptoms suggest [id number] myocardial infarction complicated with a heart failure. For further evaluation of his coronary status, he requires a cardiac catheterization. (2) CAD (coronary artery disease): Patient states he has a history of coronary artery disease with stenting x 2. Patient does not have any chest pain at this time but will continue to monitor for acute EKG changes. Consider cardiac catheterization in the morning. Qualifiers: Associated angina: without angina Coronary Disease-Associated Artery/Lesion type: [place] artery [place] vs. transplanted heart: [place] heart Qualified Code(s): I25.10 - Atherosclerotic heart disease of [place] coronary artery without angina pectoris (3) CHF exacerbation: Patient is scheduled for the dialysis today. May continue on the current treatment measures. Qualifiers: Heart failure type: diastolic Qualified Code(s): I50.33 - Acute on chronic diastolic (congestive) heart failure (4) Chronic hypertension: Patient has chronic hypertension. It is quite labile. Patient will be getting dialysis today. (5) Dyslipidemia: Patient taking atorvastatin 20 mg daily. Continue this. (6) PAD (peripheral artery disease): Asymptomatic at this time. Patient states he has had peripheral intervention recently at another facility. Hospital in [facility]. Will try to get these records. 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 Consider follow-up echocardiogram in a year. Qualifiers: Cardiac valve disease etiology: etiology unspecified Qualified Code(s): I35.0 - Nonrheumatic aortic (valve) stenosis (8) Mitral regurgitation: Moderate regurgitation , currently asymptomatic. Continue the current treatment measures. Qualifiers: Cardiac valve disease etiology: etiology unspecified Qualified Code(s): I34.0 - Nonrheumatic mitral (valve) insufficiency Plan Patient is going to have dialysis today. Will schedule for the cardiac catheterization in the morning. The risk of bleeding, hematoma, vascular injury, myocardial infarction, myocardial perforation, malignant cardiac arrhythmias ,CVA, worsening CHF and other concomitant complications were explained in detail. Patient understood this well and consented to proceed. Attestations Medical Necessity Statement*: Patient requires continued hospital stay for close monitoring and further management Coding Level of Care Code 18838 Diagnoses NSTEMI (non-ST elevated myocardial infarction) I21.4 Coronary artery disease involving [place] coronary artery of [place] heart without angina pectoris I25.10 Associated angina: without angina Coronary Disease-Associated Artery/Lesion type: [place] artery [place] vs. transplanted heart: [place] heart Acute on chronic diastolic congestive heart failure I50.33 Heart failure type: diastolic Chronic hypertension I10 Dyslipidemia E78.5 PAD (peripheral artery disease) I73.9 Aortic valve stenosis, etiology of cardiac valve disease unspecified I35.0 Cardiac valve disease etiology: etiology unspecified Mitral valve insufficiency, unspecified etiology I34.0 Cardiac valve disease etiology: etiology unspecified
[2023-12-22] MEDS: losartan 50 mg Tablet PO (09:05)
[2023-12-22] MEDS: carvedilol 12.5 mg Tablet PO ×2 (09:05→17:56)
[2023-12-22] MEDS: aspirin 81 mg EC Tablet PO (09:05)
[2023-12-22] MEDS: clopidogrel 75 mg Tablet PO (09:07)
[2023-12-22] MEDS: epoetin alfa (ESRD) 5,000 UNIT in SYRINGE 1 EACH 1 UNIT HE (11:39)
[2023-12-22 11:44] LABS: Glucose Point of Care 104 mg/dL (70-110)
[2023-12-22 13:01] LABS: Partial Thromboplastin Time 65.1 SECONDS (23.9-36.7)
--- NOTE | 2023-12-22 15:12 | P.PN_ITS ---
Subjective 2 Subjective: Patient is doing well today. He is getting dialysis. He appears to be improved from yesterday from a fluid volume standpoint. Dry cough has improved. Lung sounds have improved. Vital signs are stable. Patient has had no episodes of chest pain. States his shortness of breath has improved. He is almost 1 liter negative on his fluid balance. Medications: Reviewed: Yes Vitals/I&O/Wt Last Vital Signs Temp 98.4 F 12/22/23 14:01 Pulse 87 12/22/23 14:01 Resp 18 12/22/23 14:01 BP 180/73 12/22/23 14:01 Pulse Ox 99 12/22/23 12:00 O2 Del Method Nasal Cannula 12/22/23 12:00 O2 Flow Rate 1 12/22/23 12:00 FiO2 21 12/19/23 21:37 12/22/23 12/22/23 12/22/23 06:59 14:59 22:59 Intake Total 250.834 / 1418.734 680.417 / 680.417 Output Total 2501 / 2501 Balance 250.834 / 1318.734 -1820.583 / -1820.583 Weight last 48 hrs Weight 211 lb 10.3 oz Weight 215 lb 2.738 oz Weight 211 lb 10.3 oz Physical Exam 2 Narrative: General: No apparent distress, healthy appearing, well nourished HENMT: normoceophalic Neck: No carotid bruit bilaterally Muskuloskeletal: Full ROM Lymphatic: no lymphedema noted Respiratory: Clear throughout all lung day Cardio: No JVD, regular rate, regular rhythm, S1 S2 normal, grade 3/6 murmur aortic space, peripheral pulses 2+ radial palpated bilaterally GI: abdomen distended Extremities: Full ROM, normal, normal capillary refill, no cyanosis or edema Neuro: Alert and oriented x4, no focal motor deficits Psych: Affect normal, denies suicidal ideation, mental status grossly normal Skin: No rashes or lesions noted, no wounds Data 12/22/23 04:29 12/22/23 04:29 A&P Assessment and plan (1) NSTEMI (non-ST elevated myocardial infarction): Patient has chronically elevated troponins. History of coronary artery disease with prior stenting. EKG with changes in the lateral leads. Currently patient is without chest pain. Patient is on heparin drip. Patient's chest pain was across his chest. The clinical features may suggest unstable angina complicated with heart failure. EKG changes are nonspecific. The troponin T was elevated with a positive delta. (2) CAD (coronary artery disease): Patient states he has a history of coronary artery disease with stenting x 2. Patient does not have any chest pain at this time but will continue to monitor for acute EKG changes. Qualifiers: Coronary Disease-Associated Artery/Lesion type: [place] artery [place] vs. transplanted heart: [place] heart Associated angina: without angina Qualified Code(s): I25.10 - Atherosclerotic heart disease of [place] coronary artery without angina pectoris (3) CHF exacerbation: Patient has acute diastolic heart failure exacerbation. Patient getting dialysis today. Patient with previous bilateral pleural effusions. He appears to improved status post dialysis. Dialysis today. Qualifiers: Heart failure type: diastolic Qualified Code(s): I50.33 - Acute on chronic diastolic (congestive) heart failure (4) Chronic hypertension: Patient has chronic hypertension. It is quite labile. Patient will be getting dialysis today. (5) Dyslipidemia: Patient taking atorvastatin 20 mg daily. Continue this. (6) PAD (peripheral artery disease): Asymptomatic at this time. Patient states he has had peripheral intervention recently at another facility. Hospital in [facility]. Will try to get these records. 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 These of healed well. (7) Aortic stenosis: Moderate. Consider follow-up echocardiogram in a year. Qualifiers: Cardiac valve disease etiology: etiology unspecified Qualified Code(s): I35.0 - Nonrheumatic aortic (valve) stenosis (8) Mitral regurgitation: Moderate regurgitation , currently asymptomatic. Continue the current treatment measures. Qualifiers: Cardiac valve disease etiology: etiology unspecified Qualified Code(s): I34.0 - Nonrheumatic mitral (valve) insufficiency Plan Due to elevated troponin levels with EKG changes hx of CAD with stenting, in the setting of chest pain and shortness of breath suspicion is high for coronary artery ischemia. We have recommended patient undergo a left heart cath. Patient getting dialysis today. Patient will go for left heart cath tomorrow Attestations 2 Medical Necessity Statement*: End-stage renal disease patient in need of left heart cath for possible NSTEMI Coding Level of Care Code Acute Code for Chg Fwd Diagnoses NSTEMI (non-ST elevated myocardial infarction) I21.4 Coronary artery disease involving [place] coronary artery of [place] heart without angina pectoris I25.10 Coronary Disease-Associated Artery/Lesion type: [place] artery [place] vs. transplanted heart: [place] heart Associated angina: without angina Acute on chronic diastolic congestive heart failure I50.33 Heart failure type: diastolic Chronic hypertension I10 Dyslipidemia E78.5 PAD (peripheral artery disease) I73.9 Aortic valve stenosis, etiology of cardiac valve disease unspecified I35.0 Cardiac valve disease etiology: etiology unspecified Mitral valve insufficiency, unspecified etiology I34.0 Cardiac valve disease etiology: etiology unspecified
--- NOTE | 2023-12-22 16:06 | PM.PN ---
Subjective Subjective: Patient was seen this morning, no acute events overnight, plans on cardiac catheterization today Vitals/I&O/Wt Last Vital Signs Temp 98.4 F 12/22/23 14:01 Pulse 87 12/22/23 14:01 Resp 18 12/22/23 14:01 BP 180/73 12/22/23 14:01 Pulse Ox 99 12/22/23 12:00 O2 Del Method Nasal Cannula 12/22/23 12:00 O2 Flow Rate 1 12/22/23 12:00 FiO2 21 12/19/23 21:37 12/22/23 12/22/23 12/22/23 06:59 14:59 22:59 Intake Total 250.834 / 1418.734 680.417 / 680.417 Output Total 2501 / 2501 Balance 250.834 / 1318.734 -1820.583 / -1820.583 Weight last 48 hrs Weight 96 kg Weight 97.6 kg Weight 96 kg Physical Exam Const: COMMON NORMALS: no acute distress and patient oriented x3 Resp: COMMON NORMALS: normal respiratory effort, No retractions, No use of accessory muscles and clear to auscultation bilaterally AUSCULTATION: clear to auscultation bilaterally Cardio: COMMON NORMALS: regular rate, regular rhythm, S1 normal heart sound present and S2 normal heart sound present RATE: regular rate RHYTHM: regular rhythm HEART SOUNDS: S1 normal heart sound present and S2 normal heart sound present GI: COMMON NORMALS: Normal to inspection, nondistended, normoactive bowel sounds present and non-tender Extremity: COMMON NORMALS: no pedal edema Neuro: COMMON NORMALS: patient oriented x3 Psych: COMMON NORMALS: mental status grossly normal Data 12/22/23 04:29 12/22/23 04:29 A&P Assessment and plan (1) HTN (hypertension): Qualifiers: Hypertension type: essential hypertension Qualified Code(s): I10 - Essential (primary) hypertension (2) CAD (coronary artery disease): Qualifiers: Coronary Disease-Associated Artery/Lesion type: [place] artery [place] vs. 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: without rolling machine operator use Diabetes mellitus complication status: with circulatory complication Diabetes mellitus complication detail: with peripheral angiopathy with gangrene Qualified Code(s): E11.52 - Type 2 diabetes mellitus with diabetic peripheral angiopathy with gangrene (6) GERD (gastroesophageal reflux disease): (7) End stage renal failure on dialysis: (8) Acute hypoxic respiratory failure: (9) CHF exacerbation: Qualifiers: Heart failure type: diastolic Qualified Code(s): I50.33 - Acute on chronic diastolic (congestive) heart failure (10) Chest pain: Qualifiers: Chest pain type: unspecified Qualified Code(s): R07.9 - Chest pain, unspecified (11) NSTEMI (non-ST elevated myocardial infarction): (12) Pneumonia: Plan Acute hypoxic respiratory failure ? Likely secondary to systolic CHF exacerbation, CT chest showing bilateral pleural effusions, BNP over 60,000 ? Concerns for bilateral pleural effusions -Has concerns for left lower lobe pneumonia, given leukocytosis complains of cough -Overall improving ? Plan ? Monitor in ICU ? Will consider BiPAP based on clinical progress ? Status post 2 sessions of dialysis, respiratory status improving ? Continue Rocephin ? Continue azithromycin ? Blood cultures ? Monitor respiratory status closely Chest pain, NSTEMI ? Initial troponin 155, 120-minute 168.5 ? EKG T wave inversions in anterior leads, ? Plan ? Continue aspirin, statin, Plavix ? Status post 2 sessions of dialysis for fluid overload continues to have chest discomfort ? Heparin drip ? Cardiac echo CONCLUSIONS Mildly increased left ventricular cavity size. Left ventricular ejection fraction is estimated at 50 %. No regional wall motion abnormalities. In the presence of atrial fibrillation diastolic function cannot be assessed accurately. Moderately increased left atrial size. Moderately thickened mitral valve. Moderate mitral annular calcification. Moderate mitral valve regurgitation. Severe aortic valve calcification. Moderate aortic valve stenosis, mean gradient 11 mmHg, CHAIM 1.5 cm squared. Trace aortic valve regurgitation. Pleural effusion noted. There is no pericardial effusion. Right atrial pressure is around 10 mm of mercury. ? Monitor for chest pain ? Cardiology consulted plan for cardiac catheterization Type 2 diabetes mellitus, low-dose sliding scale End-stage renal disease on dialysis Hypothyroidism continue levothyroxine Peripheral arterial disease, no complaints of lower extremity pain Full code ? Heparin drip for DVT prophylaxis, ? Protonix for GI prophylaxis Plan on cardiac cath Attestations Medical Necessity Statement*: Patient requires hospitalization for an NSTEMI, chest pain, plan on cardiac cath, on IV heparin Diagnoses Essential hypertension I10 Hypertension type: essential hypertension Coronary artery disease involving [place] coronary artery of [place] heart without angina pectoris I25.10 Coronary Disease-Associated Artery/Lesion type: [place] artery [place] vs. 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
[2023-12-22 17:10] LABS: Glucose Point of Care 232 mg/dL (70-110)
[2023-12-22] MEDS: insulin lispro 100 unit/1 mL SUBCUT (17:56)
[2023-12-22] MEDS: cefTRIAXone 1,000 mg SDV 1000 MG IVP (17:56)
[2023-12-22] MEDS: pantoprazole 40 mg SDV IVP (17:57)
[2023-12-22] MEDS: azithromycin 250 mg Tablet PO (18:15)
[2023-12-22] MEDS: heparin drip 25,000 UNIT/500 ML PREMIX 25 UNIT IV (19:29)
[2023-12-22] MEDS: atorvastatin 40 mg Tablet PO (20:21)
[2023-12-22] MEDS: zolpidem 5 mg Tablet 10 MG PO (21:26)
[2023-12-22 21:32] LABS: Glucose Point of Care 130 mg/dL (70-110)
[2023-12-22 21:52] LABS: Partial Thromboplastin Time 39.9 SECONDS (23.9-36.7)
[2023-12-22] MEDS: heparin 5,000 unit/mL INJ 1 mL IVP (22:17)
[2023-12-23] VITALS (34 sets, daily range): BP systolic 99–186; BP diastolic 36–100; PULSE 59–88; RESP 13–24; TEMP 36.6–36.8; O2SAT 85–99
[2023-12-23] MEDS: morphine 4 mg/mL SDV 1 mL 2 MG IVP ×2 (02:30→15:40)
[2023-12-23 05:05] LABS: Basophils # 0.1 10^3/uL (0.0-0.1); Basophils % 1.3 %; Eosinophils # 0.5 10^3/uL (0.0-0.8); Eosinophils % 5.6 %; Hematocrit 25.2 % (37-53); Lymphocytes # 1.5 10^3/uL (0.8-4.8); Mean Corpuscular HGB Conc 32.5 g/dL (30-55); Mean Corpuscular Hemoglobin 31.2 pg (27-33); Mean Corpuscular Volume 95.8 fl (82-101); Mean Platelet Volume 10.8 fL (7.4-10.4); Monocytes % 10.2 %; Neutrophils # 6.24 10^3/uL (1.8-7.7); Neutrophils % 66.4 %; Nucleated Red Blood Cells % 0 %; Platelet Count 227 10^3/cmm (157-399); Red Blood Count 2.63 10^6/uL (3.85-5.65); Red Cell Distribution Width 13.1 % (12.1-15.1); White Blood Count 9.41 10^3/uL (3.29-11.43)
[2023-12-23 05:17] LABS: INR 1.18 (0.8-1.2)
[2023-12-23 05:25] LABS: Alanine Aminotransferase 8 U/L (0-41); Albumin Level 3.7 g/dL (3.5-5.2); Alkaline Phosphatase 81 U/L (40-130); Aspartate Amino Transferase 10 U/L (0-40); Blood Urea Nitrogen 35 mg/dL (6-20); Calcium 8.7 mg/dL (8.5-10.5); Carbon Dioxide 26 mmol/L (22-29); Chloride 100 mmol/L (98-107); Creatinine Clr Calc Pharmacy 14.1163; Globulin 2.4 g/dL (1.3-4.6); Glomerular Filtration Rate 8.7 mL/min (90-130); Glucose 104 mg/dL (65-115); Osmolality Calculated 296 mOsm/kg (285-295); Partial Thromboplastin Time 90.3 SECONDS (23.9-36.7); Phosphorus 3.4 mg/dL (2.5-4.5); Sodium 139 mmol/L (136-145); Total Bilirubin 0.3 mg/dL (0.15-1.2); Total Protein 6.1 g/dL (6.6-8.7)
[2023-12-23] MEDS: levothyroxine 125 mcg Tablet PO (05:51)
[2023-12-23] MEDS: clopidogrel 75 mg Tablet PO (06:17)
[2023-12-23] MEDS: diphenhydrAMINE 50 mg Capsule PO (06:17)
[2023-12-23] MEDS: aspirin 81 mg EC Tablet PO (06:18)
--- NOTE | 2023-12-23 07:00 | XACV_ITS ---
Exam Room: [facility] Ht: 175 cm Wt: 96 kg BSA: 2.19 m2 Gender: Male : 1965 Any Known Allergies: Other Exam Priority: Routine Procedure(s): Procedure Description: Diagnostic procedure Procedure Description: Coronary Angiography Shan GARCIA; Diagnostic Cath Status: Elective Diagnostic Findings * The left main is a medium caliber vessel with no significant stenotic lesions. Minimal intimal irregularities were noted in the artery. * The left anterior descending artery is a medium caliber vessel which appears to taper off towards the LV apex. The proximal LAD was found to have around 30% tubular narrowing. The first diagonal branch was found to have an ostial around 60% stenosis. Moderate diffuse calcification was noted in the proximal and mid LAD. The second diagonal branch was found to have mild diffuse disease in the proximal and the mid segment.. * The left circumflex artery is a medium caliber vessel which appears to gives off a high obtuse marginal branch. The proximal circumflex artery was found to have 20 to 30% diffuse narrowing. The second obtuse marginal artery appears to bifurcate distally. One of the bifurcation branches was found to have a 60% segmental narrowing proximally. No other significant stenotic lesions were noted.. * The right coronary artery was found to be extensively stented. It appears to be chronically occluded proximally. Grade 1-2 collaterals were found to be filling of the distal PDA/PLV branch during the left coronary injection. Conclusions 1. 58-year-old white male with history of atherosclerotic heart disease, severe peripheral artery disease, end-stage renal disease, on hemodialysis, presented with rather acute onset of shortness of breath and some chest discomfort. He had features of acute on chronic diastolic heart failure. The troponin T's were found to be chronically elevated. He had some nonspecific EKG changes. In view of the patient's clinical presentation, noted to further evaluate his coronary status, a cardiac catheterization was recommended. Patient underwent left and right coronary angiogram today. The findings are as follows. 2. Minimal intimal irregularities of the left main. 30% diffuse narrowing in the proximal LAD. Around 60% stenosis at the ostium of the first diagonal branch. Around 60% segmental narrowing in one of the bifurcation branches of the third obtuse marginal artery. Features of chronic total occlusion of the proximal RCA. Mild diffuse disease in the other vessels. 3. Based on the above findings, it was decided to optimize the medical treatment. We may consider doing a Myocardial perfusion imaging as an outpatient to evaluate for any coronary ischemia in the distribution of the diagonal and the obtuse marginal artery. Patient was transferred back to the ICU in stable condition.. Diagnostic RX Recommendation: medical therapy and/or counseling Left Ventriculography Findings: * Attempted to cross the aortic valve. The valve was found to be heavily calcified. Because of technical difficulties, it was decided not to LV gram. Pressures Phase:Rest AO : 150 / 89 ( 117 ) @ 7:35:00 AM 185 / 78 ( 119 ) @ 7:44:00 AM Clinical Evaluation EBL: 5mL-10mL Procedural Details Procedure Consent Obtained. Admit Source: In Patient. Pre-Procedure Time Out. Identified patient by full name and date of as verbalized by the patient/guarantor. Does the consent match the physician's order: Yes. Accurate & Complete Informed Consent: Yes. Inpatient/Outpatient History & Physical on Chart: Yes. If H&P is completed, is and addenduem needed: Yes; If yes, is the addendum complete: N/A. Visualize and Verify Site with Patient/Guarantor: N/A. Relevant Radiology Images available: No. The risks, benefits, and alternatives of sedation and/or procedure were discussed by physician. The patient agrees to continue. Procedure started. [facility] Clinical Fraility Score: 3: Managing Well. Ultrasonographer Indications: ACS > 24 hours. Chest Pain Symptom Assessment: Typical Angina Symptoms. Correct patient, site and procedure confirmed by cath team. Current diagnosis: NSTEMI. PERRLA. Strong, equal hand sea kayaking guide bilaterally. Lungs clear x 5 lobes. IV Site on Arrival: 20 gauge in the left anticubital. IV Site on Arrival: 20 gauge in the right anticubital. IV Fluids: 0.9% NaCl at KVO. 0 mL infused prior to cath laboratory technician. Pre Procedural Pulses: bilateral posterior tibial was Doppled. Pre Procedural Pulses: bilateral dorsalis pedis was Doppled. Oxygen started at 2liters/min via nasal canula. right radial was prepped with chloroprep then draped in the usual sterile fashion. right groin was prepped with chloroprep then draped in the usual sterile fashion. Physician notified. Baseline sample Acquired. HR: 97 BPM. Physician arrived. Physician scrubbed in. Immediate Pre-Procedure Time Out. Correct Patient: Yes; Correct Procedure: Yes; Correct Site: Yes; Correct Patient Position: Yes; Correct Supplies: Yes; Dried Flammable Prep: Yes; Blood Products Available: Yes;. Lidocaine 1% infiltrated to the right radial. Arterial access obtained. Unable to advance access wire. Wire and needle out. Manual pressure held , TR band applied to wrist. Lidocaine 1% infiltrated to the right groin. Arterial access obtained with micropuncture set. A 5 trinidadian JL4 catheter in over wire. Multiple views taken of left coronary artery. Catheter removed over the standard wire. A 5 trinidadian JR4 catheter in over wire. Multiple views taken of right coronary artery. A Suture was successful obtaining hemostatsis at the Right Femoral artery insertion site. Sheath(s) sutured into position with 2-0 silk and sterile 4x4's and Op-site applied over the site. No oozing or signs and symptoms of hematoma noted. Arterial sheath flushed and connected to tranducer and pressure bag with heparinized saline. Post Procedure: Pulses reassessed and unchanged. PERRLA. Strong, equal hand sea kayaking guide bilaterally. No VTE prophylaxis required. Medication's Wasted: Lidocaine 1% = 10 mL. Medication's Wasted: Verapamil = 5 mg. Medication's Wasted: Other = Fentanyl 50mcg Versed 1 mg. Total IV fluids: 30 mL. 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 Complications: None. Estimated blood loss: 5mL-10mL. Responsiveness - Normal response to verbal stimuli; alert and oriented, PERRLA. Airway - Unaffected, no intervention required; spontaneous ventilation. Circulation: W/N/L, pulses unchanged. Nausea/Vomiting: No. Procedure completed. Patient transferred by bed to ICU. Vital chart was stopped. Access Site Site: Right Femoral artery Sheath Size: 6 Fr Hemostasis Method: Suture Hemostasis Success: Successful Procedure Medications Start: 7:17 AM Stop: 7:17 AM Medication: Versed Amount: 1 mg Route: I.V. Start: 7:17 AM Stop: 7:17 AM Medication: Fentanyl Amount: 25 mcg Route: I.V. Start: 7:21 AM Stop: 7:21 AM Medication: Versed Amount: 1 mg Route: I.V. Start: 7:32 AM Stop: 7:32 AM Medication: Versed Amount: 1 mg Route: I.V. Start: 7:32 AM Stop: 7:32 AM Medication: Fentanyl Amount: 25 mcg Route: I.V. Start: 7:39 AM Stop: 7:39 AM Medication: Lopressor (metoprolol) Amount: 5 mg Route: I.V. Start: 7:43 AM Stop: 7:43 AM Medication: Heparin Amount: 1500 units Route: I.V. Start: 7:46 AM Stop: 7:46 AM Medication: Hydralazine Amount: 10 mg Route: I.V. I, the attending physician, have reviewed and verified all procedure medications. Yes, all medications given per verbal order History/Risk Factors Hypertension: Yes Dyslipidemia: Yes Peripheral Arterial Disease (PAD): Yes Myocardial Infarction (IN): No Obesity: No Renal Disease: Yes Tobacco Use: Current/Recent(w/in 1 year) Dialysis: Current Prior Interventions PCI: Yes CABG: No Valve Surgery: No Report Signatures Finalized by Dr Jessica Torrez MD [facility] on 12/23/2023 08:13 PM
--- NOTE | 2023-12-23 07:06 | PC.NURSE ---
Patient left to laboratory animal care veterinarian at 0700. Patient was stable.
--- NOTE | 2023-12-23 07:14 | W.PM.OPSUD ---
Surgery/Procedure H&P Update DATE OF PROCEDURE: December 23, 2023 DATE H&P PERFORMED: 12/21/23 H&P UPDATE INFORMATION: I have reviewed H&P completed within last 30 days, I have examined patient prior to procedure, No changes to prior documentation, Changes to prior documentation as noted here and H&P to be scanned into chart PREOP DIAGNOSIS: ASHD PRIMARY INDICATION FOR PROCEDURE: [id number] myocardial infarction/congestive heart failure PLANNED PROCEDURE: Operation Date: 12/23/23 07:00 Proposed Procedures p Cardiac Catheterization(Left) - Jessica Torrez MD PATIENT REASSESSED PRIOR TO SEDATION, WITH NO CHANGE NOTED: Yes PHYSICAL EXAM: alert, oriented x 3, clear to auscultation bilaterally, regular rate & rhythm and operative site marked AIRWAY EVAL/ANESTHESIA PLAN: normal airway, see other exam findings, ASA III, Monitored Anesthesia, Local Anesthesia, Risks, benefits & alternatives of sedation and/or procedure discussed and Patient agrees to continue as planned
[2023-12-23] MEDS: sucralfate 1 gm/10 mL Oral Liq UDC PO ×3 (09:34→20:54)
[2023-12-23] MEDS: carvedilol 12.5 mg Tablet PO ×2 (09:34→18:30)
[2023-12-23] MEDS: pantoprazole 40 mg SDV IVP ×2 (09:35→20:53)
[2023-12-23] MEDS: losartan 50 mg Tablet PO (09:37)
[2023-12-23 10:12] LABS: Glucose Point of Care 117 mg/dL (70-110)
[2023-12-23] MEDS: amlodipine 10 mg Tablet PO (11:16)
[2023-12-23 12:24] LABS: Glucose Point of Care 116 mg/dL (70-110)
[2023-12-23] MEDS: cloNIDine 0.1 mg Tablet PO ×2 (13:40→18:31)
--- NOTE | 2023-12-23 14:53 | PM.PN ---
Subjective Subjective: Patient doing well status post cath today. Angiogram showed RCA chronically occluded with 50 to 60% moderate lesions at the ostium of the first diagonal and in one of the branches of the third obtuse marginal artery. Patient denies any chest pain or shortness of breath at this time. Medications: Medication Review Details: Current Medications Acetaminophen (Acetaminophen 325 Mg Tablet) 650 mg PO Q6H PRN PRN Reason: Mild/Mod Pain Or Temp >/= 101 Last Admin: 12/20/23 22:44 Dose: 650 mg Al Hydrox/Mg Hydrox/Simethicone (Mpot-Qbp-Vysocptod-Haylee 30 Ml Udc) 30 ml PO Q15M PRN PRN Reason: INDIGESTION Albuterol/Ipratropium (Ipratropium-Albuterol 3 Ml Neb) 3 ml INHALATION Q6H PRN PRN Reason: SHORTNESS OF BREATH Alprazolam (Alprazolam 0.5 Mg Tablet) 0.25 mg PO TID PRN PRN Reason: ANXIETY Amlodipine Besylate (Amlodipine 10 Mg Tablet) 10 mg PO DAILY [facility] Last Admin: 12/23/23 11:16 Dose: 10 mg Aspirin (Aspirin 81 Mg Ec Tablet) 81 mg PO DAILY [facility] Last Admin: 12/23/23 06:18 Dose: 81 mg Atorvastatin Calcium (Atorvastatin 40 Mg Tablet) 40 mg PO BEDTIME [facility] Last Admin: 12/22/23 20:21 Dose: 40 mg Atropine Sulfate (Atropine 1 Mg/Ml Sdv 1 Ml) 0.5 mg IVP PRN PRN PRN Reason: Symptomatic bradycardia Azithromycin (Azithromycin 250 Mg Tablet) 250 mg PO Q24H [facility]; Protocol Last Admin: 12/22/23 18:15 Dose: 250 mg Carvedilol (Carvedilol 12.5 Mg Tablet) 12.5 mg PO BID [facility] Last Admin: 12/23/23 09:34 Dose: 12.5 mg Ceftriaxone Sodium (Ceftriaxone 1,000 Mg Sdv) 1,000 mg IVP Q24H [facility]; Protocol Last Admin: 12/22/23 17:56 Dose: 1,000 mg Clonidine HCl (Clonidine 0.1 Mg Tablet) 0.1 mg PO BID [facility] Last Admin: 12/23/23 13:40 Dose: 0.1 mg Clopidogrel Bisulfate (Clopidogrel 75 Mg Tablet) 75 mg PO DAILY [facility] Last Admin: 12/23/23 06:17 Dose: 75 mg Ergocalciferol (Ergocalciferol (Vitamin D2) 50,000 Unit Capsule) 50,000 unit PO Q7D [facility] Last Admin: 12/20/23 12:24 Dose: 50,000 unit Glucagon (Glucagon 1 Mg/Ml Kit 1 Ml) 1 mg IM ONCE PRN; Protocol PRN Reason: Adult Acute Hypoglycemia Nursing Prot. Dextrose (D5w) 500 mls @ 0 mls/hr IV ONCE PRN; Protocol PRN Reason: Adult Acute Hypoglycemia Prot Dextrose (D10w) 125 mls @ 750 mls/hr IV PRN PRN; Protocol PRN Reason: Adult Acute Hypoglycemia Nursing Protocol Dextrose (D10w) 250 mls @ 1,000 mls/hr IV PRN PRN; Protocol PRN Reason: Adult Acute Hypoglycemia Nursing Protocol Epoetin Pancho 5,000 unit/ N/A 0.25 mls @ 0 mls/hr HE DIALYSIS [facility] Last Admin: 12/23/23 12:26 Dose: Not Given Insulin Human Lispro (Insulin Lispro 100 Unit/1 Ml) 0 unit SUBCUT WM&BEDTIME [facility]; Protocol Last Admin: 12/23/23 12:25 Dose: Not Given Levothyroxine Sodium (Levothyroxine 125 Mcg Tablet) 125 mcg PO QAM [facility] Last Admin: 12/23/23 05:51 Dose: 125 mcg Losartan Potassium (Losartan 50 Mg Tablet) 50 mg PO DAILY [facility] Last Admin: 12/23/23 09:37 Dose: 50 mg Magnesium Hydroxide (Magnesium Hydroxide 30 Ml Udc) 30 ml PO DAILY PRN PRN Reason: CONSTIPATION Morphine Sulfate (Morphine 4 Mg/Ml Sdv 1 Ml) 2 mg IVP Q4H PRN PRN Reason: SEVERE PAIN Last Admin: 12/23/23 02:30 Dose: 2 mg Naloxone HCl (Naloxone 0.4 Mg/Ml Sdv) 0.1 mg IVP Q2M PRN PRN Reason: RESPIRATORY RATE < 8/MIN Nitroglycerin (Nitroglycerin 0.4 Mg Sublingual Tablet) 0.4 mg SUBLINGUAL Q5M PRN PRN Reason: CHEST PAIN Ondansetron HCl (Ondansetron 2 Mg/Ml Sdv 2 Ml) 4 mg IVP Q8H PRN PRN Reason: vomiting, or N/V if npo Pantoprazole Sodium (Pantoprazole 40 Mg Sdv) 40 mg IVP Q12H [facility] Last Admin: 12/23/23 09:35 Dose: 40 mg Sucralfate (Sucralfate 1 Gm/10 Ml Oral Liq Udc) 1 gm PO Q6H [facility] Last Admin: 12/23/23 13:40 Dose: 1 gm Zolpidem Tartrate (Zolpidem 5 Mg Tablet) 10 mg PO BEDTIME PRN PRN Reason: sleep Last Admin: 12/22/23 21:26 Dose: 10 mg Vitals/I&O/Wt Last Vital Signs Temp 97.9 F 12/23/23 12:00 Pulse 79 12/23/23 10:00 Resp 24 H 12/23/23 08:17 BP 171/83 12/23/23 13:40 Pulse Ox 92 12/23/23 10:00 O2 Del Method Room Air 12/23/23 10:00 O2 Flow Rate 1 12/22/23 12:00 FiO2 21 12/19/23 21:37 12/22/23 12/23/23 12/23/23 22:59 06:59 14:59 Intake Total 618.749 / 1299.166 215.567 / 1514.733 Output Total 50 / 2551 Balance 568.749 / -1251.834 215.567 / -1036.267 Weight last 48 hrs Weight 213 lb 13.574 oz Weight 211 lb 10.3 oz Weight 215 lb 2.738 oz Physical Exam Narrative: GENERAL: The patient is alert and oriented times three. Not in any acute distress. HEENT: No significant pallor, icterus or lymphadenopathy.Oral cavity: There are no mucous membrane lesions. NECK: Trachea appears to be central. No masses noted. No JVD or thyromegaly appreciated. RESPIRATORY: Chest is symmetrical. No intercostals muscle retraction or any accessory muscle activation. There is no chest wall tenderness. Breath sounds are heard bilaterally. No rales or rhonchi heard. No evidence of any consolidation. BREASTS: Deferred. HEART: The heart sounds are normal. No S3 or S4. No significant murmurs. No pericardial rub ABDOMEN: No vessel pulsations or distention. No tenderness. No organomegaly appreciated. Bowel sounds are normally heard. : Deferred. RECTAL: Deferred. LYMPHATIC: No lymphadenopathy noted in the neck. EXTREMITIES: No edema or cyanosis. No clubbing. Right groin has no hematoma or bleeding MUSCULOSKELETAL: No acute joint deformities or swelling SKIN: There are no significant rashes or ecchymosis NEUROPSYCHIATRIC: The patient is alert and oriented x3. Appears to be in a good mood. No tremors or rigidity noted. Data 12/23/23 14:37 12/23/23 04:25 Other Labs: Laboratory Last Values WBC 9.41 10^3/uL (3.29-11.43) 12/23/23 04:25 RBC 2.63 10^6/uL (3.85-5.65) L 12/23/23 04:25 Hgb 8.20 g/dL (11.27-16.99) L 12/23/23 04:25 Hct 25.2 % (37-53) L 12/23/23 04:25 MCV 95.8 fl (82-101) 12/23/23 04:25 MCH 31.2 pg (27-33) 12/23/23 04:25 MCHC 32.5 g/dL (30-55) 12/23/23 04:25 RDW 13.1 % (12.1-15.1) 12/23/23 04:25 Plt Count 227 10^3/cmm (157-399) 12/23/23 04:25 MPV 10.8 fL (7.4-10.4) H 12/23/23 04:25 Neut % (Auto) 66.4 % 12/23/23 04:25 Lymph % (Auto) 16.0 % 12/23/23 04:25 [place] % (Auto) 10.2 % 12/23/23 04:25 Eos % (Auto) 5.6 % 12/23/23 04:25 Baso % (Auto) 1.3 % 12/23/23 04:25 Neut # (Auto) 6.24 10^3/uL (1.8-7.7) 12/23/23 04:25 Lymph # (Auto) 1.5 10^3/uL (0.8-4.8) 12/23/23 04:25 [place] # (Auto) 1.0 10^3/uL (0.2-0.9) H 12/23/23 04:25 Eos # (Auto) 0.5 10^3/uL (0.0-0.8) 12/23/23 04:25 Baso # (Auto) 0.1 10^3/uL (0.0-0.1) 12/23/23 04:25 Nucleated RBC % (auto) 0 % 12/23/23 04:25 Nucleated RBCs # 0.0 /100WBC 12/23/23 04:25 PT 15.40 SECONDS (12.1-14.9) H 12/23/23 04:25 INR 1.18 (0.8-1.2) 12/23/23 04:25 APTT 34.0 SECONDS (23.9-36.7) D 12/23/23 10:46 Sodium 139 mmol/L (136-145) 12/23/23 04:25 Potassium 5.0 mmol/L (3.5-5.1) 12/23/23 04:25 Chloride 100 mmol/L (98-107) 12/23/23 04:25 Carbon Dioxide 26 mmol/L (22-29) 12/23/23 04:25 Anion Gap 18.0 (5-19) 12/23/23 04:25 BUN 35 mg/dL (6-20) H 12/23/23 04:25 Creatinine 6.6 mg/dL (0.7-1.2) H* 12/23/23 04:25 GFR Calculation 8.7 mL/min (90-130) L 12/23/23 04:25 Glucose 104 mg/dL (65-115) 12/23/23 04:25 POC Glucose 116 mg/dL (70-110) H 12/23/23 11:08 Estimat Average Glucose 94 12/19/23 15:26 Hemoglobin A1c 4.9 % (4.0-6.0) 12/19/23 15:26 Calculated Osmolality 296 mOsm/kg (285-295) H 12/23/23 04:25 Lactic Acid 1.3 mmol/L (0.5-2.2) 12/19/23 17:37 Uric Acid 5.4 mg/dL (3.4-7.0) 12/19/23 17:28 Calcium 8.7 mg/dL (8.5-10.5) 12/23/23 04:25 Phosphorus 3.4 mg/dL (2.5-4.5) 12/23/23 04:25 Magnesium 2.0 mg/dL (1.7-2.3) 12/23/23 04:25 Iron 54 ug/dL (59-158) L 12/20/23 02:03 TIBC 138 mcg/dl 12/20/23 02:03 % Saturation 39.1 % (20-50) 12/20/23 02:03 Unsat Iron Binding 84 ug/dL (112-347) L 12/20/23 02:03 Ferritin 1764 ng/mL (30-400) H 12/20/23 02:03 Total Bilirubin 0.3 mg/dL (0.15-1.2) 12/23/23 04:25 AST 10 U/L (0-40) 12/23/23 04:25 ALT 8 U/L (0-41) 12/23/23 04:25 Alkaline Phosphatase 81 U/L (40-130) 12/23/23 04:25 Troponin T Baseline 155 ng/L (0-15) H* 12/19/23 15:26 Troponin T 120 Minute 168.5 ng/L (0-15) H 12/19/23 17:28 Delta Troponin T 13.5 ABS# (0-10) H* 12/19/23 17:28 Troponin T Hi Sens 6Hr 195.2 ng/L (0-15) H 12/19/23 22:21 Troponin T Hi Sens 6Hr Delta 40.2 ng/L (0-12) H* 12/19/23 22:21 C-Reactive Protein 13.5 mg/L (0.0-4.9) H 12/19/23 17:28 NT-Pro-B Natriuret Pep > 78497 pg/mL (0-125) H 12/20/23 02:03 Total Protein 6.1 g/dL (6.6-8.7) L 12/23/23 04:25 Albumin 3.7 g/dL (3.5-5.2) 12/23/23 04:25 Globulin 2.4 g/dL (1.3-4.6) 12/23/23 04:25 Triglycerides 109 mg/dL (0-150) 12/19/23 17:28 Cholesterol 127 mg/dL (0-200) 12/19/23 17:28 LDL Cholesterol, Calc 76 mg/dL (50-129) 12/19/23 17:28 HDL Cholesterol 29 mg/dL (60-100) L 12/19/23 17:28 LDL/HDL Ratio 2.62 RATIO (0.00-3.22) 12/19/23 17: Cholesterol/HDL Ratio 4.38 mg/dL (1.0-5.00) 12/19/23 17:28 Lipase 11 U/L (13-60) L 12/19/23 15:26 25-OH Vitamin D Total 13 ng/mL (30-100) L 12/20/23 02:03 Procalcitonin 0.19 ng/mL (0-0.5) 12/19/23 17:28 TSH 2.86 uIU/mL (0.27-4.20) 12/19/23 17: PTH Intact 399.1 pg/mL (15-65) H 12/20/23 02:03 Calcium (PTH Intact) 8.6 mg/dL (8.5-10.5) 12/20/23 02:03 Coronavirus (PCR) Negative (Negative) 12/19/23 22:15 Hep Bs Antigen Non-reactive (Nonreactive) 12/20/23 02:03 Hep Bs Antibody < 3.5 (11.5-1000) L 12/20/23 02:03 Hepatitis C Antibody Non-reactive (Nonreactive) 12/20/23 02:03 Influenza A (PCR) Negative (Negative) 12/19/23 22:15 Influenza Type B (PCR) Negative (Negative) 12/19/23 22:15 RSV (PCR) Negative (Negative) 12/19/23 22:15 Blood Type B Positive 12/22/23 04:29 Rho(D) Type Rh positive 12/22/23 04:29 Antibody Screen Negative 12/22/23 04:29 A&P Assessment and plan (1) NSTEMI (non-ST elevated myocardial infarction): Patient's heart cath was today showing moderate coronary disease in the first diagonal branch of the LAD and OM with chronically occluded RCA. Continue dual antiplatelet therapy. If he continues to remain stable, may be discharged home this evening or tomorrow (2) CAD (coronary artery disease): Patient states he has a history of coronary artery disease with stenting x 2. Patient does not have any chest pain. May continue on the current treatment Qualifiers: Associated angina: without angina Coronary Disease-Associated Artery/Lesion type: [place] artery [place] vs. transplanted heart: [place] heart Qualified Code(s): I25.10 - Atherosclerotic heart disease of [place] coronary artery without angina pectoris (3) CHF exacerbation: Patient is status post dialysis which has improved symptoms. Qualifiers: Heart failure type: diastolic Qualified Code(s): I50.33 - Acute on chronic diastolic (congestive) heart failure (4) Chronic hypertension: Patient has chronic hypertension. It is quite labile. Medications are being added by primary. (5) Dyslipidemia: Patient taking atorvastatin 20 mg daily. May continue on the current medication (6) PAD (peripheral artery disease): Asymptomatic at this time. Patient states he has had peripheral intervention recently at another facility-? [facility]. Will try to get these records. 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 Consider follow-up echocardiogram in a year. Qualifiers: Cardiac valve disease etiology: etiology unspecified Qualified Code(s): I35.0 - Nonrheumatic aortic (valve) stenosis (8) Mitral regurgitation: Moderate regurgitation , currently asymptomatic. Continue the current treatment measures. Qualifiers: Cardiac valve disease etiology: etiology unspecified Qualified Code(s): I34.0 - Nonrheumatic mitral (valve) insufficiency Plan If the patient continues remain stable, may be discharged home this evening or in the morning. Arrangements to be made for outpatient dialysis tomorrow Attestations Medical Necessity Statement*: Deferred to the primary Coding Level of Care Code 32360 Diagnoses NSTEMI (non-ST elevated myocardial infarction) I21.4 Coronary artery disease involving [place] coronary artery of [place] heart without angina pectoris I25.10 Associated angina: without angina Coronary Disease-Associated Artery/Lesion type: [place] artery [place] vs. transplanted heart: [place] heart Acute on chronic diastolic congestive heart failure I50.33 Heart failure type: diastolic Chronic hypertension I10 Dyslipidemia E78.5 PAD (peripheral artery disease) I73.9 Aortic valve stenosis, etiology of cardiac valve disease unspecified I35.0 Cardiac valve disease etiology: etiology unspecified Mitral valve insufficiency, unspecified etiology I34.0 Cardiac valve disease etiology: etiology unspecified
[2023-12-23 15:10] LABS: Basophils # 0.1 10^3/uL (0.0-0.1); Eosinophils # 0.6 10^3/uL (0.0-0.8); Eosinophils % 5.4 %; Hematocrit 29.5 % (37-53); Lymphocytes # 1.2 10^3/uL (0.8-4.8); Mean Corpuscular HGB Conc 32.2 g/dL (30-55); Mean Corpuscular Hemoglobin 31.1 pg (27-33); Mean Corpuscular Volume 96.7 fl (82-101); Monocytes # 0.9 10^3/uL (0.2-0.9); Monocytes % 8.6 %; Neutrophils # 7.96 10^3/uL (1.8-7.7); Neutrophils % 73.7 %; Nucleated Red Blood Cells % 0 %; Platelet Count 247 10^3/cmm (157-399); Red Blood Count 3.05 10^6/uL (3.85-5.65)
--- NOTE | 2023-12-23 15:58 | P.PN_ITS ---
Subjective 2 Subjective: Patient was seen this morning, he is status post cardiac cath, no obstructive CAD, no chest pain, shortness of breath Vitals/I&O/Wt Last Vital Signs Temp 97.9 F 12/23/23 12:00 Pulse 79 12/23/23 10:00 Resp 20 H 12/23/23 15:40 BP 171/83 12/23/23 13:40 Pulse Ox 91 12/23/23 15:40 O2 Del Method Room Air 12/23/23 10:00 O2 Flow Rate 1 12/22/23 12:00 FiO2 21 12/19/23 21:37 12/23/23 12/23/23 12/23/23 06:59 14:59 22:59 Intake Total 215.567 / 1514.733 Balance 215.567 / -1036.267 Weight last 48 hrs Weight 97 kg Weight 96 kg Weight 97.6 kg Physical Exam 2 Const: COMMON NORMALS: no acute distress and patient oriented x3 Resp: COMMON NORMALS: normal respiratory effort, No retractions, No use of accessory muscles and clear to auscultation bilaterally AUSCULTATION: clear to auscultation bilaterally Cardio: COMMON NORMALS: regular rate, regular rhythm, S1 normal heart sound present and S2 normal heart sound present RATE: regular rate RHYTHM: r egular rhythm HEART SOUNDS: S1 normal heart sound present and S2 normal heart sound present GI: COMMON NORMALS: Normal to inspection, nondistended, normoactive bowel sounds present and non-tender Extremity: COMMON NORMALS: no pedal edema Neuro: COMMON NORMALS: patient oriented x3 Psych: COMMON NORMALS: mental status grossly normal Data 12/23/23 14:37 12/23/23 04:25 A&P Assessment and plan (1) HTN (hypertension): Qualifiers: Hypertension type: essential hypertension Qualified Code(s): I10 - Essential (primary) hypertension (2) CAD (coronary artery disease): Qualifiers: Coronary Disease-Associated Artery/Lesion type: [place] artery [place] vs. 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 Diabetes mellitus complication status: with circulatory complication Diabetes mellitus complication detail: with peripheral angiopathy with gangrene Qualified Code(s): E11.52 - Type 2 diabetes mellitus with diabetic peripheral angiopathy with gangrene (6) GERD (gastroesophageal reflux disease): (7) End stage renal failure on dialysis: (8) Acute hypoxic respiratory failure: (9) CHF exacerbation: Qualifiers: Heart failure type: diastolic Qualified Code(s): I50.33 - Acute on chronic diastolic (congestive) heart failure (10) Chest pain: Qualifiers: Chest pain type: unspecified Qualified Code(s): R07.9 - Chest pain, unspecified (11) NSTEMI (non-ST elevated myocardial infarction): (12) Pneumonia: Plan Acute hypoxic respiratory failure ? Likely secondary to systolic CHF exacerbation, CT chest showing bilateral pleural effusions, BNP over 60,000 ? Concerns for bilateral pleural effusions -Has concerns for left lower lobe pneumonia, given leukocytosis complains of cough -Overall improving ? Plan ? Monitor in ICU ? Will consider BiPAP based on clinical progress ? Status post 2 sessions of dialysis, respiratory status improving ? Continue Rocephin ? Continue azithromycin ? Blood cultures ? Monitor respiratory status closely Chest pain, NSTEMI ? Initial troponin 155, 120-minute 168.5 ? EKG T wave inversions in anterior leads, ? Plan ? Continue aspirin, statin, Plavix ? Status post 2 sessions of dialysis for fluid overload continues to have chest discomfort ? Heparin drip ? Cardiac echo CONCLUSIONS Mildly increased left ventricular cavity size. Left ventricular ejection fraction is estimated at 50 %. No regional wall motion abnormalities. In the presence of atrial fibrillation diastolic function cannot be assessed accurately. Moderately increased left atrial size. Moderately thickened mitral valve. Moderate mitral annular calcification. Moderate mitral valve regurgitation. Severe aortic valve calcification. Moderate aortic valve stenosis, mean gradient 11 mmHg, CHAIM 1.5 cm squared. Trace aortic valve regurgitation. Pleural effusion noted. There is no pericardial effusion. Right atrial pressure is around 10 mm of mercury. ? Monitor for chest pain ? Cardiology consulted plan for cardiac catheterization, no obstructive CAD Type 2 diabetes mellitus, low-dose sliding scale End-stage renal disease on dialysis Hypothyroidism continue levothyroxine Peripheral arterial disease, no complaints of lower extremity pain Full code ? DVT prophylaxis, ? Protonix for GI prophylaxis Plan on today possible discharge pending blood pressures remain quite hypertensive, requiring addition of multiple antihypertensives, he is status post cath, he needs to have dialysis tomorrow Attestations 2 Medical Necessity Statement*: Patient requires hospitalization for NSTEMI status post cath, elevated blood pressures Diagnoses Essential hypertension I10 Hypertension type: essential hypertension Coronary artery disease involving [place] coronary artery of [place] heart without angina pectoris I25.10 Coronary Disease-Associated Artery/Lesion type: [place] artery [place] vs. 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
[2023-12-23 17:23] LABS: Glucose Point of Care 117 mg/dL (70-110)
--- NOTE | 2023-12-23 17:25 | PC.NURSE ---
6 hour bedrest has ended. Nurse ambulated patient in room and he then sat in a recliner. Immeadiately after ambulation nurse assess sheath site and there was no evidene of bleeding. nurse again check at the 10 and 15 minute geraldo. No evidence of internal or eternal bleeding. Patient reports no pain at the site.
--- NOTE | 2023-12-23 18:29 | PC.NURSE ---
Patient's sheath was pulled at 1153. No complications occurred. Patient is stable.
[2023-12-23] MEDS: azithromycin 250 mg Tablet PO (18:31)
[2023-12-23] MEDS: cefTRIAXone 1,000 mg SDV 1000 MG IVP (18:31)
--- NOTE | 2023-12-23 18:38 | P.PN_ITS ---
Subjective 2 Subjective: s/p [facility] today Medications: Reviewed: Yes Vitals/I&O/Wt Last Vital Signs Temp 98.2 F 12/23/23 16:00 Pulse 88 12/23/23 14:00 Resp 20 H 12/23/23 15:40 BP 145/76 12/23/23 18:31 Pulse Ox 91 12/23/23 15:40 O2 Del Method Room Air 12/23/23 10:00 O2 Flow Rate 1 12/22/23 12:00 FiO2 21 12/19/23 21:37 12/23/23 12/23/23 12/23/23 06:59 14:59 22:59 Intake Total 215.567 / 1514.733 240 / 240 Balance 215.567 / -1036.267 240 / 240 Weight last 48 hrs Weight 97 kg Weight 96 kg Weight 97.6 kg Physical Exam 2 Narrative: comfortable in bed using nasal cannula oxygen. Vital signs noted. HEENT normocephalic atraumatic. Neck is supple. Lungs-good air movement b/l. Heart regular. Abdomen is soft positive bowel sounds. Extremities bilateral 1+ edema poor pulses. Anterior chest wall permacath. Neuro awake alert oriented x 3 Data 12/23/23 14:37 12/23/23 04:25 A&P Assessment and plan (1) End stage renal failure on dialysis: 58-year-old gentleman ESRD CAD peripheral arterial disease status post TMA diabetes obesity. Patient here with hypertension volume overload and pleural effusions on imaging. 1. Chest pain: Patient was seen by cardiology who did not feel that he is having an ST elevation [place]. - echo. EF at 50% positive A-fib, moderate mitral valve regurgitation, severe aortic valve calcification with moderate aortic valve stenosis, right atrial pressure of 10 mmHg. -Patient has moderate mitral regurgitation and severe aortic stenosis to be evaluated by cardiology -Status post left heart cath 2. ESRD -per TTS schedule -Normal phosphorus. PTH 399 with use of vitamin D analog- once. otherwise vitd weekly 3.possible pneumonia-on antibiotics 4. Hypertension -continue Coreg and losartan 5. Diabetic control per medicine. 6. anemia- ferritin 1764, tsat 39%- no iv iron, use VAN 7, replace vit d 8. Hypothyroidism on levothyroxine. The patient was seen and examined using audiovisual equipment with the aid of a nurse. The patient consents to telehealth and to hemodialysis. Case discussed in detail with the patient his nurse . Plan See above. Attestations 2 Medical Necessity Statement*: Per medicine team Coding Level of Care Code Acute Code for Chg Fwd Diagnoses End stage renal failure on dialysis N18.6; Z99.2
[2023-12-23 20:52] LABS: Glucose Point of Care 182 mg/dL (70-110)
[2023-12-23] MEDS: atorvastatin 40 mg Tablet PO (20:54)
[2023-12-23] MEDS: zolpidem 5 mg Tablet 10 MG PO (20:54)
[2023-12-23] MEDS: heparin 5,000 unit/mL INJ 1 mL 5000 UNIT SUBCUT (20:54)
[2023-12-23] MEDS: insulin lispro 100 unit/1 mL SUBCUT (20:54)
--- NOTE | 2023-12-23 22:48 | ECG_ITS ---
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 Measurements Intervals [place] Rate: 65 P: 11 IN: 233 QRS: -6 QRSD: 117 T: 142 QT: 430 QTc: 447 Interpretive Statements SINUS RHYTHM WITH FIRST DEGREE AV BLOCK WITH OCCASIONAL VENTRICULAR PREMATURE COMPLEXES MODERATE INTRAVENTRICULAR CONDUCTION DELAY ST DEVIATION AND MODERATE T-WAVE ABNORMALITY, CONSIDER ANTEROLATERAL ISCHEMIA Compared to ECG 12/21/2023 03:04:23 Ventricular premature complex(es) now present T-wave abnormality still present Possible ischemia still present Electronically Signed On 12-24-2023 15:58:33 PHYSICS PROFESSOR by Slim Jordan M.D. [email or web address]
--- NOTE | 2023-12-23 23:08 | PC.NURSE ---
Dr. Sorensen called - patient with noted 3.0, 2.5 and additional 2.5 second pause in ekg monitoring within a minute- see rhythm strip in chart. vitals stable. Patient reports felt missed beat, woke him up- states he has had this in past and was told 3 seconds before during dialysis. Denies sob or chest pain. EKG ordered. First degree AV block noted- rate 65 - consistent with previous monitoring. Continue to monitor.
[2023-12-24] VITALS (16 sets, daily range): BP systolic 113–158; BP diastolic 59–82; PULSE 55–84; RESP 12–24; TEMP 36.1–37; O2SAT 93–99; BMI 31.7
[2023-12-24 05:19] LABS: Alanine Aminotransferase 8 U/L (0-41); Albumin Level 3.5 g/dL (3.5-5.2); Alkaline Phosphatase 81 U/L (40-130); Aspartate Amino Transferase 10 U/L (0-40); Blood Urea Nitrogen 48 mg/dL (6-20); Calcium 8.4 mg/dL (8.5-10.5); Carbon Dioxide 22 mmol/L (22-29); Chloride 98 mmol/L (98-107); Creatinine Clr Calc Pharmacy 10.7619; Globulin 2.6 g/dL (1.3-4.6); Glomerular Filtration Rate 6.3 mL/min (90-130); Glucose 113 mg/dL (65-115); Magnesium 2.1 mg/dL (1.7-2.3); Osmolality Calculated 291 mOsm/kg (285-295); Phosphorus 4.5 mg/dL (2.5-4.5); Sodium 134 mmol/L (136-145); Total Bilirubin 0.3 mg/dL (0.15-1.2); Total Protein 6.1 g/dL (6.6-8.7)
[2023-12-24 05:29] LABS: Anion Gap 18.9 (5-19); Potassium 4.9 mmol/L (3.5-5.1)
[2023-12-24] MEDS: levothyroxine 125 mcg Tablet PO (05:38)
[2023-12-24 07:49] LABS: Glucose Point of Care 155 mg/dL (70-110)
[2023-12-24] MEDS: heparin, porcine 1,000 unit/mL INJ 10 mL 1000 UNIT IV (07:52)
[2023-12-24] MEDS: losartan 50 mg Tablet PO (08:58)
[2023-12-24] MEDS: clopidogrel 75 mg Tablet PO (08:59)
[2023-12-24] MEDS: aspirin 81 mg EC Tablet PO (08:59)
[2023-12-24] MEDS: sucralfate 1 gm/10 mL Oral Liq UDC PO (08:59)
[2023-12-24] MEDS: amlodipine 10 mg Tablet PO (08:59)
[2023-12-24] MEDS: heparin 5,000 unit/mL INJ 1 mL 5000 UNIT SUBCUT (09:00)
[2023-12-24] MEDS: insulin lispro 100 unit/1 mL SUBCUT (09:00)
[2023-12-24] MEDS: pantoprazole 40 mg SDV IVP (09:00)
--- NOTE | 2023-12-24 09:39 | P.DS_ITS ---
Discharge Providers Date of Admission: 12/19/23 18:44 Date of Discharge: December 23, 2023 Attending Provider at Admission: Shashi Vásquez MD Attending Provider at Discharge: Shashi Vásquez MD Primary Care Provider: ENRIQUE Ramirez Diagnoses at Discharge Discharge Diagnosis (1) NSTEMI (non-ST elevated myocardial infarction): Status: Acute (2) CAD (coronary artery disease): Status: Acute Qualifiers: Associated angina: without angina Coronary Disease-Associated Artery/Lesion type: [place] artery [place] vs. transplanted heart: [place] heart Qualified Code(s): I25.10 - Atherosclerotic heart disease of [place] coronary artery without angina pectoris Permanent problem details: Cardiac stent x1 (3) CHF exacerbation: Status: Acute Qualifiers: Heart failure type: diastolic Qualified Code(s): I50.33 - Acute on chronic diastolic (congestive) heart failure (4) Chronic hypertension: Status: Acute (5) Dyslipidemia: Status: Acute (6) PAD (peripheral artery disease): Status: Chronic Permanent problem details: With critical lower limb ischemia 06/2019 requiring intervention with CSI atherectomy of the SFA followed by [id number] balloon angioplasty, CSI atherectomy of the tibial peroneal trunk and left anterior tibial followed by balloon angioplasty, reconstruction of the arch of the foot which was completely occluded. (7) Aortic stenosis: Status: Acute Qualifiers: Cardiac valve disease etiology: etiology unspecified Qualified Code(s): I35.0 - Nonrheumatic aortic (valve) stenosis (8) Mitral regurgitation: Status: Acute Qualifiers: Cardiac valve disease etiology: etiology unspecified Qualified Code(s): I34.0 - Nonrheumatic mitral (valve) insufficiency Reason for Visit Reason for Visit: stemi alert Hospital Course Hospital Course Christiano Kearns is a 58 year old male with a past medical history of CAD, end- stage renal disease on dialysis, type 2 diabetes mellitus, hypertension, per lipidemia, hypothyroidism, who presents to [facility] for shortness of breath. Currently patient is alert oriented x 3, following all commands, blood pressure 190/100, currently on 2 L, complaint of shortness of breath, does have tachypnea, no tachycardia, does have diffuse crackles in all lung day. His dialysis days are Tuesday and Saturdays, he does reports chest pain on Tuesday, this morning he reported a pressure-like pain in his chest, nonradiating, associate with shortness of breath, he does report progressive shortness of breath no lower extreme edema does report a nonproductive cough, fatigue, malaise, no fevers, chills. Patient was a STEMI alert from [facility], on arrival, EKG reviewed with visual education director, STEMI was called off, currently denies any active chest pain does report shortness of breath -Spoke to nephrology, plan on dialysis tonight -Spoke to ER provider This is a 58-year-old male who presents [facility] for acute hypoxic respiratory failure secondary CHF, bilateral pleural effusions, with evidence of left lower lobe pneumonia, monitored in ICU required inpatient dialysis, broad- spectrum IV antibiotic therapy, overall clinically improved. Will be discharged on doxycycline, with close follow-up with primary care provider as outpatient. Resume his dialysis schedule as outpatient. For his chest pain, NSTEMI, CONCLUSIONS Mildly increased left ventricular cavity size. Left ventricular ejection fraction is estimated at 50 %. No regional wall motion abnormalities. In the presence of atrial fibrillation diastolic function cannot be assessed accurately. Moderately increased left atrial size. Moderately thickened mitral valve. Moderate mitral annular calcification. Moderate mitral valve regurgitation. Severe aortic valve calcification. Moderate aortic valve stenosis, mean gradient 11 mmHg, CHAIM 1.5 cm squared. Trace aortic valve regurgitation. Pleural effusion noted. There is no pericardial effusion. Right atrial pressure is around 10 mm of mercury. ? Monitor for chest pain ? Cardiology consulted plan for cardiac catheterization, no obstructive CAD -Patient clinically did well after procedure, no recurrent chest pain, discharged home Physical Exam Const: COMMON NORMALS: no acute distress and patient oriented x3 Resp: COMMON NORMALS: normal respiratory effort, No retractions, No use of accessory muscles and clear to auscultation bilaterally AUSCULTATION: clear to auscultation bilaterally Cardio: COMMON NORMALS: regular rate, regular rhythm, S1 normal heart sound present and S2 normal heart sound present RATE: regular rate RHYTHM: regular rhythm HEART SOUNDS: S1 normal heart sound present and S2 normal heart sound present GI: COMMON NORMALS: Normal to inspection, nondistended, normoactive bowel sounds present and non-tender Extremity: COMMON NORMALS: no pedal edema Neuro: COMMON NORMALS: patient oriented x3 Psych: COMMON NORMALS: mental status grossly normal Discharge Data Studies Completed and Pending Completed Studies During Hospitalization Category Date Time Status CTA chest [CT angio chest PE protcl [id number]] Stat Cat Scan 12/19/23 16:13 Com pleted XR chest 1V portable [id number] Stat Exams 12/19/23 15:18 Completed CV carotid duplex BI* [id number] Routine Ultrasound 12/21/23 13:13 Completed CV. echo complete* [id number] Stat Ultrasound 12/20/23 18:40 Completed Pending at discharge Category Date Time Status WATERMASTER request for service Routine Exams 12/23/23 07:00 Ordered Blood Culture Stat Lab 12/19/23 17:33 Results CBC Auto Diff [Complete Blood Count w/Auto] Routine Lab 12/23/23 13:00 Ordered CBC Auto Diff [Complete Blood Count w/Auto] Stat Lab 12/23/23 11:44 Ordered Comprehensive Metabolic Panel AM LABS Lab 12/24/23 04:00 Ordered Magnesium AM LABS Lab 12/24/23 04:00 Ordered Phosphorus AM LABS Lab 12/24/23 04:00 Ordered Sputum Culture and Gram Stain Stat Lab 12/19/23 18:44 Uncollected Radiology Impressions Chest X-Ray 12/19/23 15:18 IMPRESSION: Possible pulmonary edema. Chest CTA 12/19/23 16:13 IMPRESSION: 1. Congestive heart failure with pleural effusions 2. Stable mediastinal and hilar adenopathy Laboratory Results WBC 9.41 10^3/uL (3.29-11.43) 12/23/23 04:25 RBC 2.63 10^6/uL (3.85-5.65) L 12/23/23 04:25 Hgb 8.20 g/dL (11.27-16.99) L 12/23/23 04:25 Hct 25.2 % (37-53) L 12/23/23 04:25 MCV 95.8 fl (82-101) 12/23/23 04:25 MCH 31.2 pg (27-33) 12/23/23 04:25 MCHC 32.5 g/dL (30-55) 12/23/23 04:25 RDW 13.1 % (12.1-15.1) 12/23/23 04:25 Plt Count 227 10^3/cmm (157-399) 12/23/23 04:25 MPV 10.8 fL (7.4-10.4) H 12/23/23 04:25 Neut % (Auto) 66.4 % 12/23/23 04:25 Lymph % (Auto) 16.0 % 12/23/23 04:25 [place] % (Auto) 10.2 % 12/23/23 04:25 Eos % (Auto) 5.6 % 12/23/23 04:25 Baso % (Auto) 1.3 % 12/23/23 04:25 Neut # (Auto) 6.24 10^3/uL (1.8-7.7) 12/23/23 04:25 Lymph # (Auto) 1.5 10^3/uL (0.8-4.8) 12/23/23 04:25 [place] # (Auto) 1.0 10^3/uL (0.2-0.9) H 12/23/23 04:25 Eos # (Auto) 0.5 10^3/uL (0.0-0.8) 12/23/23 04:25 Baso # (Auto) 0.1 10^3/uL (0.0-0.1) 12/23/23 04:25 Nucleated RBC % (auto) 0 % 12/23/23 04:25 Nucleated RBCs # 0.0 /100WBC 12/23/23 04:25 PT 15.40 SECONDS (12.1-14.9) H 12/23/23 04:25 INR 1.18 (0.8-1.2) 12/23/23 04:25 APTT 34.0 SECONDS (23.9-36.7) D 12/23/23 10:46 Sodium 139 mmol/L (136-145) 12/23/23 04:25 Potassium 5.0 mmol/L (3.5-5.1) 12/23/23 04:25 Chloride 100 mmol/L (98-107) 12/23/23 04:25 Carbon Dioxide 26 mmol/L (22-29) 12/23/23 04:25 Anion Gap 18.0 (5-19) 12/23/23 04:25 BUN 35 mg/dL (6-20) H 12/23/23 04:25 Creatinine 6.6 mg/dL (0.7-1.2) H* 12/23/23 04:25 GFR Calculation 8.7 mL/min (90-130) L 12/23/23 04:25 Glucose 104 mg/dL (65-115) 12/23/23 04:25 POC Glucose 117 mg/dL (70-110) H 12/23/23 09:34 Estimat Average Glucose 94 12/19/23 15:26 Hemoglobin A1c 4.9 % (4.0-6.0) 12/19/23 15:26 Calculated Osmolality 296 mOsm/kg (285-295) H 12/23/23 04:25 Lactic Acid 1.3 mmol/L (0.5-2.2) 12/19/23 17:37 Uric Acid 5.4 mg/dL (3.4-7.0) 12/19/23 17:28 Calcium 8.7 mg/dL (8.5-10.5) 12/23/23 04:25 Phosphorus 3.4 mg/dL (2.5-4.5) 12/23/23 04:25 Magnesium 2.0 mg/dL (1.7-2.3) 12/23/23 04:25 Iron 54 ug/dL (59-158) L 12/20/23 02:03 TIBC 138 mcg/dl 12/20/23 02:03 % Saturation 39.1 % (20-50) 12/20/23 02:03 Unsat Iron Binding 84 ug/dL (112-347) L 12/20/23 02:03 Ferritin 1764 ng/mL (30-400) H 12/20/23 02:03 Total Bilirubin 0.3 mg/dL (0.15-1.2) 12/23/23 04:25 AST 10 U/L (0-40) 12/23/23 04:25 ALT 8 U/L (0-41) 12/23/23 04:25 Alkaline Phosphatase 81 U/L (40-130) 12/23/23 04:25 Troponin T Baseline 155 ng/L (0-15) H* 12/19/23 15:26 Troponin T 120 Minute 168.5 ng/L (0-15) H 12/19/23 17:28 Delta Troponin T 13.5 ABS# (0-10) H* 12/19/23 17:28 Troponin T Hi Sens 6Hr 195.2 ng/L (0-15) H 12/19/23 22:21 Troponin T Hi Sens 6Hr Delta 40.2 ng/L (0-12) H* 12/19/23 22:21 C-Reactive Protein 13.5 mg/L (0.0-4.9) H 12/19/23 17:28 NT-Pro-B Natriuret Pep > 61850 pg/mL (0-125) H 12/20/23 02:03 Total Protein 6.1 g/dL (6.6-8.7) L 12/23/23 04:25 Albumin 3.7 g/dL (3.5-5.2) 12/23/23 04:25 Globulin 2.4 g/dL (1.3-4.6) 12/23/23 04:25 Triglycerides 109 mg/dL (0-150) 12/19/23 17:28 Cholesterol 127 mg/dL (0-200) 12/19/23 17:28 LDL Cholesterol, Calc 76 mg/dL (50-129) 12/19/23 17: HDL Cholesterol 29 mg/dL (60-100) L 12/19/23 17:28 LDL/HDL Ratio 2.62 RATIO (0.00-3.22) 12/19/23 17:28 Cholesterol/HDL Ratio 4.38 mg/dL (1.0-5.00) 12/19/23 17:28 Lipase 11 U/L (13-60) L 12/19/23 15:26 25-OH Vitamin D Total 13 ng/mL (30-100) L 12/20/23 02:03 Procalcitonin 0.19 ng/mL (0-0.5) 12/19/23 17:28 TSH 2.86 uIU/mL (0.27-4.20) 12/19/23 17:28 PTH Intact 399.1 pg/mL (15-65) H 12/20/23 02:03 Calcium (PTH Intact) 8.6 mg/dL (8.5-10.5) 12/20/23 02:03 Coronavirus (PCR) Negative (Negative) 12/19/23 22:15 Hep Bs Antigen Non-reactive (Nonreactive) 12/20/23 02:03 Hep Bs Antibody < 3.5 (11.5-1000) L 12/20/23 02:03 Hepatitis C Antibody Non-reactive (Nonreactive) 12/20/23 02:03 Influenza A (PCR) Negative (Negative) 12/19/23 22:15 Influenza Type B (PCR) Negative (Negative) 12/19/23 22:15 RSV (PCR) Negative (Negative) 12/19/23 22:15 Blood Type B Positive 12/22/23 04:29 Rho(D) Type Rh positive 12/22/23 04:29 Antibody Screen Negative 12/22/23 04:29 Vitals Last Vital Signs Temp 98.3 F 12/23/23 00:00 Pulse 79 12/23/23 10:00 Resp 24 H 12/23/23 08:17 BP 186/93 12/23/23 10:00 Pulse Ox 92 12/23/23 10:00 O2 Del Method Room Air 12/23/23 10:00 O2 Flow Rate 1 12/22/23 12:00 FiO2 21 12/19/23 21:37 Discharge Plan Discharge Patient Disposition: Home Condition: Stable Prescriptions: New losartan 50 mg Tablet 50 mg PO DAILY 30 Days Qty: 30 0RF amlodipine 10 mg Tablet 10 mg PO DAILY 30 Days Qty: 30 0RF pantoprazole [Protonix] 40 mg tablet,delayed release (DR/EC) 40 mg PO BID 30 Days Qty: 60 0RF sucralfate [Carafate] 1 gram tablet 1 g PO BID 28 Days Qty: 56 0RF doxycycline hyclate 100 mg tablet 100 mg PO BID 5 Days Qty: 10 0RF Continued (DME) diabetic shoes and inserts See Rx Instructions .Route .MEDSUPPLY Qty: 1 0RF Rx Instructions: As directed (DME) pen needle, diabetic [Comfort EZ Pen [place]] 31 gauge x 3/16 needle See Rx Instructions .Route Qty: 100 3RF Rx Instructions: As directed hydrocodone-acetaminophen 10-325 mg tablet 1 tab PO Q4H PRN (Reason: Pain) (DME) OWLS boot See Rx Instructions .Route .MEDSUPPLY Qty: 1 0RF Rx Instructions: As directed (DME) Hydrafera Blue READY Antibacterial Foam Dressing and [place] SAP See Rx Instructions .Route .MEDSUPPLY Qty: 1 0RF Rx Instructions: As directed HOME- Patient needs Hydrafera blue foam and [place] SAP dressing to the Left Heel Wound Daily for 30 days for 3 months (DME) Diabetic shoes with inserts and toe filler See Rx Instructions .Route .MEDSUPPLY Qty: 1 0RF Rx Instructions: As directed (DME) Diabetic shoes with inserts See Rx Instructions .Route .MEDSUPPLY Qty: 1 0RF Rx Instructions: As directed (DME) short cam boot to the right See Rx Instructions .Route .MEDSUPPLY Qty: 1 0RF Rx Instructions: As directed furosemide 40 mg tablet 40 mg PO DAILY atorvastatin 20 mg tablet 20 mg PO DAILY Qty: 30 5RF carvedilol 12.5 mg tablet 12.5 mg PO BID Qty: 60 5RF Rx Instructions: must administer with a meal/food clopidogrel 75 mg tablet 75 mg PO DAILY Qty: 30 5RF pantoprazole 40 mg tablet,delayed release (DR/EC) 40 mg PO DAILY Qty: 30 5RF tadalafil [Cialis] 10 mg tablet 10 mg PO DAILY PRN (Reason: sexual activity) Qty: 10 5RF Rx Instructions: administer approximately 30min before sexual activity acetaminophen [Tylenol Extra Strength] 500 mg tablet 1,000 mg PO BID 7 Days Qty: 28 1RF (DME) Optifoam 4 X 4 bandage See Rx Instructions .Route Qty: 100 2RF Rx Instructions: Apply a Dressing to Left Foot Wounds Twice a Day (DME) PolymemAG (with silver) and [place] SAP See Rx Instructions .Route .MEDSUPPLY Qty: 1 0RF Rx Instructions: As directed HOME sennosides-docusate sodium 8.6-50 mg Tablet 1 tab PO BID Qty: 60 0RF (DME) glucometer See Rx Instructions .Route .MEDSUPPLY Qty: 1 0RF Rx Instructions: As directed (DME) glucometer strips See Rx Instructions .Route .MEDSUPPLY Qty: 100 0RF Rx Instructions: As directed calcium carbonate 200 mg calcium (500 mg) Tablet,Chewable 200 mg PO TID aspirin 81 mg tablet,delayed release (DR/EC) 81 mg PO DAILY levothyroxine 125 mcg tablet 125 mcg PO DAILY Rx Instructions: TAKE ONE TABLET BY MOUTH DAILY Changed insulin degludec [Tresiba FlexTouch U-100] 100 unit/mL (3 mL) insulin pen 5 unit SUBCUT DAILY Qty: 15 5RF Discontinued nifedipine 60 mg tablet extended release 60 mg PO DAILY Qty: 30 5RF lisinopril 10 mg tablet 10 mg PO DAILY Qty: 30 5RF Discharge Orders: Discharge Order (Routine); Ordered 12/24/23 Ordered By: Shashi Vásquez Referrals: Freda Summers FNP-C [Primary Care Provider] - Cindy Crews FNP [Nurse Practitioner] - [facility] weeks ([facility] Discharge Diet: Cardiac Discharge Activity: Resume usual activity Patient Instructions: Dialysis Nutrition Plan (DC), Hemodialysis (DC), Opioid Safety Activity Restrictions/Additional Instructions: - If any recurrent chest pain please go to emergency room ? Please follow-up with cardiology in 2 weeks ? Please have your primary care provider recheck your hemoglobin in 1 week Discharge Attestations Time Spent in Discharge Care*: greater than 30 min Status at Discharge: Cognitive status at discharge: cognitively intact , Behavioral status at discharge: cooperative , Quality Metrics Clinical Quality Measures [ No reported AMI, CVA or VTE this stay] Coding Level of Care Code 01919 Total time (in minutes) for Discharge: 45 Diagnoses NSTEMI (non-ST elevated myocardial infarction) I21.4 Coronary artery disease involving [place] coronary artery of [place] heart without angina pectoris I25.10 Associated angina: without angina Coronary Disease-Associated Artery/Lesion type: [place] artery [place] vs. transplanted heart: [place] heart Acute on chronic diastolic congestive heart failure I50.33 Heart failure type: diastolic Chronic hypertension I10 Dyslipidemia E78.5 PAD (peripheral artery disease) I73.9 Aortic valve stenosis, etiology of cardiac valve disease unspecified I35.0 Cardiac valve disease etiology: etiology unspecified Mitral valve insufficiency, unspecified etiology I34.0 Cardiac valve disease etiology: etiology unspecified
--- NOTE | 2023-12-24 09:47 | PC.NURSE ---
pending discharge until dialysis complete
[2023-12-24] MEDS: epoetin alfa (ESRD) 5,000 UNIT in SYRINGE 1 EACH 1 UNIT HE (10:41)
[2023-12-24] MEDS: heparin, porcine 1,000 unit/mL INJ 10 mL 10000 UNIT INTRACATH (11:05)
--- NOTE | 2023-12-24 11:25 | PC.NURSE ---
awaiting ride for discharge
--- NOTE | 2023-12-24 12:46 | P.PN_ITS ---
Subjective 2 Subjective: getting HD Medications: Reviewed: Yes Vitals/I&O/Wt Last Vital Signs Temp 97 F L 12/24/23 11:55 Pulse 84 12/24/23 11:55 Resp 24 H 12/24/23 11:55 BP 141/82 12/24/23 11:55 Pulse Ox 98 12/24/23 11:55 O2 Del Method Room Air 12/24/23 05:00 O2 Flow Rate 1 12/22/23 12:00 FiO2 21 12/19/23 21:37 12/23/23 12/24/23 12/24/23 22:59 06:59 14:59 Intake Total 150 / 390.25 100 / 490.25 750 / 750 Output Total 2690 / 2690 Balance 150 / 390.25 100 / 490.25 -1940 / -1940 Weight last 48 hrs Weight 96 kg Weight 97.522 kg Weight 97 kg Weight 96 kg Physical Exam 2 Narrative: comfortable in bed using nasal cannula oxygen. Vital signs noted. HEENT normocephalic atraumatic. Neck is supple. Lungs-good air movement b/l. Heart regular. Abdomen is soft positive bowel sounds. Extremities bilateral 1+ edema poor pulses. Anterior chest wall permacath. Neuro awake alert oriented x 3 Data 12/23/23 14:37 12/24/23 04:44 A&P Assessment and plan (1) End stage renal failure on dialysis: 58-year-old gentleman ESRD CAD peripheral arterial disease status post TMA diabetes obesity. Patient here with hypertension volume overload and pleural effusions on imaging. 1. Chest pain: Patient was seen by cardiology who did not feel that he is having an ST elevation LA. - echo. EF at 50% positive A-fib, moderate mitral valve regurgitation, severe aortic valve calcification with moderate aortic valve stenosis, right atrial pressure of 10 mmHg. -Patient has moderate mitral regurgitation and severe aortic stenosis to be evaluated by cardiology -Status post left heart cath 2. ESRD -per TTS schedule -Normal phosphorus. PTH 399 with use of vitamin D analog- once. otherwise vitd weekly 3.possible pneumonia-on antibiotics 4. Hypertension -continue Coreg and losartan 5. Diabetic control per medicine. 6. anemia- ferritin 1764, tsat 39%- no iv iron, use VAN 7, replace vit d 8. Hypothyroidism on levothyroxine. The patient was seen and examined using audiovisual equipment with the aid of a nurse. The patient consents to telehealth and to hemodialysis. Case discussed in detail with the patient his nurse . Plan See above. Attestations 2 Medical Necessity Statement*: per gary Coding Level of Care Code Acute Code for Chg Fwd Diagnoses End stage renal failure on dialysis N18.6; Z99.2
== END 2023-12-24 11:40 | disposition home or self-care (01) | DRG 280 ==
LOC: ER 19:40 → ICU 19:58
PROVIDERS: Internal Medicine; Internal Medicine Cardiovascular Disease; Internal Medicine Nephrology; Nurse Practitioner Family; Admitting Provider Family Medicine; Emergency Provider Emergency Medicine; PCP Nurse Practitioner Family; Visit Provider Family Medicine
PROC: B2111ZZ Fluoroscopy of Multiple Coronary Arteries using Low Osmolar Contrast (ICD-10-PCS; principal; 2023-12-23 07:00)
DX: I21.4 Non-ST elevation (NSTEMI) myocardial infarction (principal); I50.23 Acute on chronic systolic (congestive) heart failure; N18.6 End stage renal disease; J96.01 Acute respiratory failure with hypoxia; J18.9 Pneumonia, unspecified organism; I13.2 Hypertensive heart and chronic kidney disease with heart failure and with stage 5 chronic kidney disease, or end stage renal disease; I25.10 Atherosclerotic heart disease of native coronary artery without angina pectoris; E11.22 Type 2 diabetes mellitus with diabetic chronic kidney disease; E78.5 Hyperlipidemia, unspecified; E11.51 Type 2 diabetes mellitus with diabetic peripheral angiopathy without gangrene; I35.0 Nonrheumatic aortic (valve) stenosis; I34.0 Nonrheumatic mitral (valve) insufficiency; E03.9 Hypothyroidism, unspecified; E66.9 Obesity, unspecified; K21.9 Gastro-esophageal reflux disease without esophagitis; Z79.82 Long term (current) use of aspirin; Z99.2 Dependence on renal dialysis; Z79.4 Long term (current) use of insulin; Z68.31 Body mass index [BMI] 31.0-31.9, adult; Z79.02 Long term (current) use of antithrombotics/antiplatelets
CPT/HCPCS: 0241U; 36415; 36416; 71045; 71275; 80053; 80061; 82306; 82310; 82728; 82962; 83036; 83540; 83550; 83605; 83690; 83735; 83880; 83970; 84100; 84145; 84443; 84484; 84550; 85025; 85610; 85730; 86140; 86706; 86803; 86850; 86900; 87040; 87340; 90935; 93005; 93306; 93454; 93880; 94664; 96365; 96367; 96372; 96374; 96375; 96376; 99152; 99153; 99285; C1769; C1887; C1894; J0360; J0456; J0696; J1171; J1644; J1815; J2250; J2270; J2470; J3010; J3490; J7050; P9046; Q0144; Q0163; Q3014; Q4081; Q9967

== ENCOUNTER → 2024-01-04 09:12 | Outpatient (BNVA) | payer MEDICARE, MEDICAID, SELFPAY | PROVIDERS: PCP Nurse Practitioner Family; Visit Provider Nurse Practitioner Family | DX: N18.6 End stage renal disease (principal); D50.9 Iron deficiency anemia, unspecified; I50.33 Acute on chronic diastolic (congestive) heart failure; Z99.2 Dependence on renal dialysis | CPT/HCPCS: 83550; 85025 ==

== ENCOUNTER → 2024-01-18 11:39 | Outpatient (BNVA) | payer MEDICARE, MEDICAID, SELFPAY | PROVIDERS: PCP Nurse Practitioner Family; Visit Provider Nurse Practitioner Family | DX: I25.10 Atherosclerotic heart disease of native coronary artery without angina pectoris (principal); Z09 Encounter for follow-up examination after completed treatment for conditions other than malignant neoplasm; I25.82 Chronic total occlusion of coronary artery; N18.9 Chronic kidney disease, unspecified; Z99.2 Dependence on renal dialysis; I11.0 Hypertensive heart disease with heart failure | CPT/HCPCS: 99214 ==

== ENCOUNTER 2024-02-03 08:23 | Outpatient (CLI) | payer MEDICARE, MEDICAID, SELFPAY ==
--- NOTE | 2024-02-03 | ECG_ITS ---
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 Interpretive Statements Lung unchanged pre/post procedure; Intraprocedure shortess of breath; Symptoms resoled by discharge PROCEDURE: At the baseline, the EKG revealed normal sinus rhythm with a frequent ventricular and supraventricular ectopics.. The baseline heart was 70 bpm with a blood pressue of 153/80 mm of Hg Lexiscan was infused over a period of 20 seconds. A total of 0.4 milligrams of Lexiscan was infused. The stress phase was continued for a total of 5 minutes. Heart rate at the end of the stress phase was 81 bpm with a blood pressure 153/80 mm of Hg. The EKG at the peak infusion revealed no significant changes. Sestamibi was injected 20 seconds after the Lexiscan infusion. Heart rate at the end of the recovery phase was 81 bpm with a blood pressure of 128/87 mm of Hg. CONCLUSION: 1. No significant EKG changes with the LexiScan infusion 2. No LexiScan induced chest pain or cardiac arrhythmia 3. Normal blood pressure and heart rate response 4. Sestamibi/sestamibi perfusion scan pending; see separate report. Electronically Signed On 02-03-2024 14:57:39 GERMINATION WORKER by Jessica Torrez M.D. [id number]
[2024-02-03 08:45] VITALS: BMI 32.6
--- NOTE | 2024-02-03 09:31 | NMCV_ITS ---
NM jeffery perf SPECT r/s* [id number] Christiano Kearns Age: 58 Gender: M : 1965 Exam Date: 02/03/2024 09:31 Ordering Phys: Cindy Crews Technologist: YOVANI Marsh Exam Location: [facility] Indications: cp STRESS TEST Please see separate stress test report in [facility] for full findings IMAGE PROTOCOL Rest/Stress 1 Lexiscan Day Radiopharmaceutical Dose (mCi) Administration Site Administered by Rest: Tc-99m 11 IV Amy Schrader, MERCHANDISING REPRESENTATIVE Sestamibi Stress:Tc-99m 32.9 IV Amy Macrina, MERCHANDISING REPRESENTATIVE Sestamibi Rest: 03-Feb-2024 60 Discovery 630 Stress: 03-Feb-2024 30 Discovery 630 0.4mg Lexiscan. Images obtained in supine and prone position. SPECT RESULTS Technical Quality: Good Raw Data Analysis: Normal Image Corrections: No attenuation or motion correction applied Summed Stress Score: 15 Summed Rest Score: 13 Summed Difference Score: 2 PERFUSION FINDINGS Moderate to severely decreased tracer uptake was noted in the basal mid and apical inferior, mid inferolateral, mid anterolateral and apical lateral segments. Slight reversibility was noted in the apical lateral and mid anterolateral regions. FUNCTIONAL RESULTS (calculated via Gated SPECT) Stress Image LV EF (%): 47 Stress EDV (mL):174 TID: 1.1 Stress ESV (mL):92 FUNCTIONAL FINDINGS: Segmental wall motion analysis revealing mild diffuse hypokinesia of the LV apex IMPRESSIONS 1. Myocardial perfusion imaging revealing moderate area of moderate to severely decreased tracer uptake involving the inferior, inferolateral , anterolateral and apical lateral segments with minimal reversibility suggesting myocardial scarring in distribution of the right coronary artery and circumflex artery with small area of rae-infarction ischemia, mostly in the distribution of the left circumflex artery 2. Slightly diminished LV ejection fraction of 47%. 3. Segmental wall motion analysis revealing mild diffuse hypokinesia of the LV apex. 4. Mildly dilated LV cavity with end-systolic volume of 92 mL Compared to the study from 07/22/2020, the ischemic burden remains unchanged. But the summed stress score was high of -15 compared to the previous study where it was only 4. This may suggest negative remodeling Dr Jessica Torrez MD FACC (Electronically Signed) Final Date: 03 February 2024 16:20 S
[2024-02-03] MEDS: regadenoson 0.4 Mg/5 ml Syringe IVP (09:58)
[2024-02-03 10:52] VITALS: BP 128/67; PULSE 77
== END 2024-02-03 08:24 | disposition home or self-care (01) ==
PROVIDERS: PCP Nurse Practitioner Family; Visit Provider Nurse Practitioner Family
DX: I25.10 Atherosclerotic heart disease of native coronary artery without angina pectoris (principal); I24.89 Other forms of acute ischemic heart disease; R06.02 Shortness of breath
CPT/HCPCS: 36415; 78452; 93017; 96374; A9500; J2785

== ENCOUNTER → 2024-04-09 12:52 | Outpatient (BNVA) | payer MEDICARE, MEDICAID, SELFPAY | PROVIDERS: Family Provider Nurse Practitioner Family; PCP Nurse Practitioner Family; Visit Provider Nurse Practitioner Family | DX: R00.1 Bradycardia, unspecified (principal); N18.6 End stage renal disease; Z99.2 Dependence on renal dialysis | CPT/HCPCS: 80053; 82310; 82728; 83540; 83970; 84443; 85025 ==

== ENCOUNTER → 2024-04-16 10:44 | Outpatient (BNVA) | payer MEDICARE, MEDICAID, SELFPAY | PROVIDERS: Family Provider Nurse Practitioner Family; PCP Nurse Practitioner Family; Visit Provider Internal Medicine Cardiovascular Disease | DX: R00.1 Bradycardia, unspecified (principal); I44.1 Atrioventricular block, second degree; I49.3 Ventricular premature depolarization; I49.1 Atrial premature depolarization | CPT/HCPCS: 93242 ==

== ENCOUNTER → 2024-06-06 10:31 | Outpatient (BNVA) | payer MEDICARE, MEDICAID, SELFPAY | PROVIDERS: Family Provider Nurse Practitioner Family; PCP Nurse Practitioner Family; Visit Provider Internal Medicine Cardiovascular Disease | DX: I25.10 Atherosclerotic heart disease of native coronary artery without angina pectoris (principal); I13.2 Hypertensive heart and chronic kidney disease with heart failure and with stage 5 chronic kidney disease, or end stage renal disease; N18.6 End stage renal disease; I50.33 Acute on chronic diastolic (congestive) heart failure; Z99.2 Dependence on renal dialysis; I35.0 Nonrheumatic aortic (valve) stenosis; E78.5 Hyperlipidemia, unspecified; I73.9 Peripheral vascular disease, unspecified; I34.0 Nonrheumatic mitral (valve) insufficiency; Z79.01 Long term (current) use of anticoagulants; Z79.82 Long term (current) use of aspirin; Z95.5 Presence of coronary angioplasty implant and graft | CPT/HCPCS: 99214 ==

== ENCOUNTER → 2024-08-23 14:00 | Outpatient (BNVA) | payer MEDICARE, MEDICAID, SELFPAY | PROVIDERS: Family Provider Nurse Practitioner Family; PCP Nurse Practitioner Family; Visit Provider Nurse Practitioner Family | DX: E11.52 Type 2 diabetes mellitus with diabetic peripheral angiopathy with gangrene (principal); E78.5 Hyperlipidemia, unspecified | CPT/HCPCS: 80053; 80061; 82728; 83036; 84443; 85025 ==

== ENCOUNTER → 2024-12-17 11:36 | Outpatient (BNVA) | payer MEDICARE, MEDICAID, SELFPAY | PROVIDERS: Family Provider Nurse Practitioner Family; PCP Nurse Practitioner Family; Visit Provider Internal Medicine Cardiovascular Disease | DX: I25.10 Atherosclerotic heart disease of native coronary artery without angina pectoris (principal); I11.0 Hypertensive heart disease with heart failure; I50.9 Heart failure, unspecified; I35.0 Nonrheumatic aortic (valve) stenosis; E78.5 Hyperlipidemia, unspecified; I73.9 Peripheral vascular disease, unspecified; I34.0 Nonrheumatic mitral (valve) insufficiency; Z95.5 Presence of coronary angioplasty implant and graft | CPT/HCPCS: 99214 ==